=== PATIENT | male | born 1945 | race Caucasian/White ===

== ENCOUNTER → 2025-09-10 08:59 | Outpatient (REF) | payer MEDICARE, OTHER, SELFPAY | LOC: RAD 08:59 | PROVIDERS: ATTENDING PHYSICIAN Thoracic Surgery (Cardiothoracic Vascular Surgery); FAMILY PHYSICIAN Family Medicine | DX: I25.10 Atherosclerotic heart disease of native coronary artery without angina pectoris (principal); I25.5 Ischemic cardiomyopathy | CPT/HCPCS: 71275; Q9967 ==

== ENCOUNTER 2025-09-15 13:20 | Inpatient (IN) | payer MEDICARE, OTHER, SELFPAY ==
[2025-09-03 12:57] LABS: INR 1.15; PT 15.0 Sec (11.4-14.6)
[2025-09-03 13:00] LABS: Hematocrit 48.0 % (39.0-52.0); Hemoglobin 15.7 g/dL (13.0-18.0); Mean Corp Hgb Conc. 32.7 g/dL (33.0-37.0); Mean Corpuscular Volume 92.5 fL (80.0-94.0); Platelet Count 132 10^3/uL (130-400); Red Cell Dist. Width 13.8 % (11.5-14.5)
[2025-09-03 13:15] LABS: Urine Character Clear (Clear)
[2025-09-03 13:26] LABS: ALT (SGPT) 23 U/L (0-50); AST (SGOT) 27 U/L (17-59); Albumin 3.9 g/dl (3.5-5.0); Alkaline Phosphatase 88 U/L (38-126); Blood Urea Nitrogen 22 mg/dl (9-20); Calcium 9.4 mg/dl (8.4-10.2); Carbon Dioxide 30 mmol/L (22-30); Chloride 106 mmol/L (98-107); Glucose 88 mg/dl (70-99); Potassium 4.2 mmol/L (3.5-5.1); Sodium 139 mmol/L (135-145); Total Protein 6.2 g/dl (6.3-8.2); eGFR > 60.00
[2025-09-03 13:33] VITALS: BMI 27.9
--- NOTE | 2025-09-03 14:03 | CM ---
Chart reviewed. Met with the patient and his in PAT. Patient scheduled to come in on 09/15 for possible Impella placement and surgery on 09/17. Reviewed preoperative instructions and restrictions, along with showering guidelines. Gave
patient 2 soaps, in case he doesn't come in early. Patient is agreeable to a home visit by CT Transitional RN. Plan is for the patient to return home with CT Transitional RN. Patient is independent of ADLS, lives with his in a 1 STH,, 0 CHARLIE,
0 DME. Plan is for the patient to return home with CT Transitional RN. CM to follow
[2025-09-03 14:11] LABS: Nucleated Red Blood Cells % 0 % (-)
[2025-09-03 14:51] LABS: Urine Red Blood Cell 0-2 /HPF (0-2); Urine White Cell 0-2 /HPF (0-5)
[2025-09-03 15:01] LABS: Glycohemoglobin (HgbA1c) 5.4 % (4.0-5.6)
[2025-09-15] VITALS (7 sets, daily range): BP systolic 142–176; BP diastolic 89–107; PULSE 59; BMI 27.5
--- NOTE | 2025-09-15 13:55 | W.PN.UPDATE ---
Update Note
Progress Note Update
The patient is being preadmitted for medical optimization prior to high risk CABG on Tuesday with Dr. Cartagena. LVEF 15%. Plan for IV dobutamine and diuresis over the next 24-36 hrs. Hold losartan, jardiance in anticipation of surgery. Hold coreg while
on dobutamine.
There have been no other changes to the documented history or physical. I discussed the perioperative expectations with the patient and his and answered their questions to their satisfaction. Planning CABG with possible direct aortic impella
5.[address] Cartagena.
[2025-09-15 14:19] LABS: Hematocrit 47.3 % (39.0-52.0); Hemoglobin 15.7 g/dL (13.0-18.0); Mean Corp Hgb Conc. 33.2 g/dL (33.0-37.0); Mean Corpuscular Volume 91.7 fL (80.0-94.0); Platelet Count 123 10^3/uL (130-400); Red Cell Dist. Width 13.7 % (11.5-14.5)
[2025-09-15 14:30] LABS: ALT (SGPT) 26 U/L (0-50); AST (SGOT) 32 U/L (17-59); Albumin 3.9 g/dl (3.5-5.0); Alkaline Phosphatase 97 U/L (38-126); Blood Urea Nitrogen 21 mg/dl (9-20); Calcium 9.4 mg/dl (8.4-10.2); Carbon Dioxide 29 mmol/L (22-30); Chloride 106 mmol/L (98-107); Estimated Creatinine Clearance 55 ml/min; Glucose 102 mg/dl (70-99); Potassium 4.0 mmol/L (3.5-5.1); Sodium 137 mmol/L (135-145); Total Protein 6.5 g/dl (6.3-8.2); eGFR > 60.00
[2025-09-15] MEDS: KCL 20 MEQ PO ×2 (14:38→22:27)
[2025-09-15] MEDS: PEPCID 20 MG PO (14:38)
[2025-09-15] MEDS: BUMEX 1 MG IV ×2 (14:38→22:27)
[2025-09-15] MEDS: DOBUTREX 250 IV (14:38)
[2025-09-15] MEDS: TYLENOL 650 MG PO ×2 (15:25→20:00)
--- NOTE | 2025-09-15 15:32 | PTCARENOTE ---
Patient admitted to IVU. He is AO x3, walking independently in the room. Placed on telemetry, IV placed, labs collected. Denies pain. NSR with frequent PVC's. Lungs CTA, denies shortness of breath at rest. Dobutamine gtt started. Plan of care
reviewed. Patient in chair, call streeter in reach
--- NOTE | 2025-09-15 17:29 | PTCARENOTE ---
Patient having feeling of urgency, fullness and frequency. Multiple trips to the bathroom only voiding small amounts of yellow pale urine since receiving Bumex IV. Bladder scan 350, notified Gabriel Jiménez and 16 F Kee placed and emptied for 500 cc of
clear light urine. Symptoms resolved. Patient much more comfortable
[2025-09-15 20:52] LABS: Magnesium 2.3 mg/dl (1.6-2.3)
--- NOTE | 2025-09-15 21:34 | PTCARENOTE ---
Assumed care of patient at change of shift. Pt AAOx3, denies any chest discomfort or SOB at this time. Tele remains SR w/ PACs/PVCs, he denies any palpitations. Adrian Quiroga CTNP aware, orders obtained for lab draw. Labs collected and Mag level
came back at 2.3. Patient reports urinary relief after day shift RN had inserted Kee catheter. Kee draining fruit punch color urine, no clots noted at this time. Alexia MAIL HANDLER ASSISTANT made aware, no new orders at this time. IV Dobutamine gtt maintained.
Reviewed POC w/ patient. Call streeter within reach.
[2025-09-15] MEDS: LIPITOR 40 MG PO (22:27)
[2025-09-15] MEDS: CARDURA 8 MG PO (22:27)
[2025-09-15] MEDS: PROSCAR 5 MG PO (22:27)
[2025-09-15] MEDS: SEROQUEL 25 MG PO (23:10)
[2025-09-16] VITALS (14 sets, daily range): BP systolic 98–159; BP diastolic 67–115; PULSE 88; BMI 26.7
[2025-09-16 03:58] LABS: Hematocrit 51.2 % (39.0-52.0); Hemoglobin 16.8 g/dL (13.0-18.0); Mean Corp Hgb Conc. 32.8 g/dL (33.0-37.0); Mean Corpuscular Volume 93.6 fL (80.0-94.0); Nucleated Red Blood Cells % 0 % (-); Platelet Count 127 10^3/uL (130-400); Red Cell Dist. Width 13.7 % (11.5-14.5)
[2025-09-16 04:02] LABS: INR 1.15; PT 15.1 Sec (11.4-14.6)
[2025-09-16 04:12] LABS: ALT (SGPT) 27 U/L (0-50); AST (SGOT) 32 U/L (17-59); Albumin 4.1 g/dl (3.5-5.0); Alkaline Phosphatase 91 U/L (38-126); Blood Urea Nitrogen 20 mg/dl (9-20); Calcium 9.5 mg/dl (8.4-10.2); Carbon Dioxide 27 mmol/L (22-30); Chloride 105 mmol/L (98-107); Estimated Creatinine Clearance 50 ml/min; Glucose 118 mg/dl (70-99); LDH 186 U/L (120-246); Magnesium 2.2 mg/dl (1.6-2.3); Potassium 3.9 mmol/L (3.5-5.1); Sodium 139 mmol/L (135-145); Total Protein 6.7 g/dl (6.3-8.2); eGFR > 60.00
--- NOTE | 2025-09-16 04:55 | W.PN.CT ---
Today's Communication / Plan
-
-continued on dobutamine at 3 mcg with Bumex 1 mg q8 hr. Trending lactate.
-UOP 2600 cc since admission
-pending echo today
-holding outpatient BB
-Continue atorvastatin
-Kee placed for urinary retention. Urine initially reported to be punch colored after difficult insertion, did not clear overnight. Send UA today
-Continue on Cardua and Proscar
-mild thrombocytopenia noted, follow CBC
Assessment / Plan
-
80 year old male with a history of MVCAD and ICM admitted for planned CABG x4 (VASQUEZ-LAD, RSVG-D2, RSVG-OM, RSVG-RPDA), possibly with Impella 5.5 support, and LAAE on 09/[address] Cartagena. Admitted pre-operatively for dobutamine assisted diuresis and
optimization prior to surgery
MVCAD s/p LAD stent 2002
ICM
SYDNI
HFrEF
Cataracts
HTN
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
Enlarged prostate
Thrombocytopenia
Urinary retention
hematuria
Subjective
-
Date of Service: September 16, 2025
Objective Data
-
Lab Results
09/16/25 03:35
09/16/25 03:35
PT 15.1 Sec (11.4-14.6) H 09/16/25 03:35
INR 1.15 09/16/25 03:35
Vital Signs
Vital Signs
Temp Pulse Resp BP Pulse Ox
97.5 F 77 18 108/76 95
09/16/25 03:19 09/16/25 04:00 09/16/25 03:19 09/16/25 03:43 09/16/25 03:19
CT Intake/Output/Weight
11/02/25 11/02/25 11/03/25
05:59 18:59 06:59
Intake Total 480 / 480
Output Total 1050 / 2650 1600 / 2650
Balance -570 / -2170 -1600 / -2170
SaO2: 95
Physical Exam
-
General: Awake and Oriented
Cardiovascular: Regular rate & rhythm, No Murmurs and No Rub
Respiratory: Clear and Equal
Extremities: Edema +1
Data Reviewed
-
Lab Results: Results Reviewed
Medications: Active Meds Reviewed
ECG: Report Reviewed and Image Reviewed
--- NOTE | 2025-09-16 05:08 | PTCARENOTE ---
Patient required standby assist when ambulating to the bathroom this am. Patient was not able to move his bowels but did report passing gas. Patient stood up and felt like he was going to 'faint'. Escorted patient back to bed, obtained BP which
showed 98/79. He had relief once laying in bed, rechecked blood pressure w/ a result of 108/76. C/o brief nausea, which resolved. Denies any chest discomfort. Alexia CTNP aware. Mornings labs collected and sent. Kee drainage remains fruit punch
color w/ no clots. POC ongoing, call streeter within reach.
[2025-09-16 05:40] LABS: Urine Character Bloody (Clear)
[2025-09-16 05:51] LABS: Urine Red Blood Cell >100 /HPF (0-2); Urine Squamous Cell 0-2 /LPF (Few); Urine White Cell 0-2 /HPF (0-5)
[2025-09-16] MEDS: PEPCID 20 MG PO (07:41)
[2025-09-16] MEDS: KCL 40 MEQ PO (07:41)
[2025-09-16] MEDS: VITAMIN D3 (cholecalciferol) 50 MCG PO (07:41)
[2025-09-16] MEDS: THERAGRAN PO (07:44)
--- NOTE | 2025-09-16 07:52 | PTCARENOTE ---
Assumed care at 0700. Patient AO x3. NSR with PVC's HR 80's. Crackles left base, denies shortness of breath. Indwelling Kee, dark red urine, some dark red clots in the bag. VSS, call streeter in reach
--- NOTE | 2025-09-16 09:35 | W.PN.UPDATE ---
Update Note
Progress Note Update
Patient CBC with mild thrombocytopenia (plt ~120K) and leukocytosis (~19-20).
Patient reported he follows with Dr. Samantha Campa as an outpatient and denied any diagnosis of CLL or treatment secondary to laboratory abnormalities. Spoke to Dr. Campa to identify barriers to CVOR tomorrow in which she reported this to be
chronic.
Will continue to plan for CVOR tomorrow, 09/17/[address] Chun Cartagena.
--- NOTE | 2025-09-16 09:38 | CM ---
Reviewed chart. Met with Mr. Hackett to review discharge plans. He states prior to admission he resides with his spouse in a [place] community. He states he has been there for four years. He state his home is a one story home with a loft without
any steps to enter. He states he has a first floor set-up. He states prior to admission he was independent with ambulation and adls. He states he has a single point cane at [employer] to use if needed. He states he has a prescription plan and uses [facility]. He states his spouse will be home to assist in his care if needed. Medical work-up in progress. The discharge plan is to return home with his spouse and a home visit by the Transitional Care Nurse when medically stable.
--- NOTE | 2025-09-16 09:52 | W.CVOR.SURPR ---
CVOR Surgeon Immed Pre Op
-
I have examined this patient prior to performance of the scheduled procedure.
The patient's condition is unchanged from the time of the dictated/written History and
Physical and the patient is able to undergo the scheduled procedure.
High risk CABG + MCS + LAAE
D/w Dr. Campa, elevated WBC and low Plt count is chronic
--- NOTE | 2025-09-16 12:06 | VATNOTE ---
Called to assess dobutamine infiltrate on the left arm. No c/o pain. Reddened measuring at 13 x 4 cm. Warm compress applied. Left arm elevated on pillow. Will continue to monitor closely.
--- NOTE | 2025-09-16 13:06 | PTCARENOTE ---
Warm compress to infiltrate on left forearm. Denies pain
--- NOTE | 2025-09-16 16:45 | PTCARENOTE ---
Addendum entered by Gopi Corbin RN 09/16/25 17:24:
Dobutamine gtt stopped. Echo completed. Kee draining maroon urine, intermittent bladder spasms, emptied Kee 400 cc. Left arm infiltrate improved after compresses. EKG complete. Light dimmed call streeter in reach
Original Note:
Dobutamine gtt stopped. Echo completed. Kee draining yellow urine with dark sediment, intermittent bladder spasms. Left arm infiltrate improved after compresses. Light dimmed call streeter in reach
--- NOTE | 2025-09-16 19:43 | PTCARENOTE ---
Kee catheter leaking, irrigated catheter, light pink urine in tubing. Patient transferred to CV. Report given. All belongings sent with patient
--- NOTE | 2025-09-16 20:30 | PTCARENOTE ---
Patient arrived from IVU to room 2263 via wheelchair without difficulty. Patient A+A+Ox3. No neurological deficits noted. No c/o headache, dizziness or lightheadedness. No c/o pain or discomfort. Room air. SpO2 94%. Fines crackles bilateral
bases. Mild WELCH. Sinus Rhythm with PAC's and occasional to rare PVC. Patient with no c/o chest pain, pressure or discomfort. Abdomen soft, round, nontender. Normoactive bowel sounds. No BM. No c/o nausea. No vomiting. No edema noted.
Positive, palpable pulses. Kee catheter - Scarlett, blood tinged urine. No c/o bladder pain, discomfort or spasms. Patient with no c/o back or flank pain. Afebrile. Assessment as documented.
--- NOTE | 2025-09-16 20:35 | PTCARENOTE ---
Patient's left forearm continues to be reddened and swollen. Patient with no c/o pain or discomfort to left forearm. Positive circulation, sensation and mobility to left upper extremity. Assessment as documented.
--- NOTE | 2025-09-16 21:30 | PTCARENOTE ---
Patient clipped and prepped per protocol. 4% Chlorhexidine bath. Patient now resting in bed. Patient's at bedside. No c/o pain or discomfort. Assessment as documented.
[2025-09-16] MEDS: CARDURA 8 MG PO (22:53)
[2025-09-16] MEDS: LIPITOR 40 MG PO (22:53)
[2025-09-16] MEDS: SEROQUEL 25 MG PO (22:54)
[2025-09-16] MEDS: PROSCAR 5 MG PO (22:54)
[2025-09-17] VITALS (17 sets, daily range): BP systolic 74–127; BP diastolic 57–96; BMI 26.8
--- NOTE | 2025-09-17 00:30 | PTCARENOTE ---
NPO after midnight. Patient sleeping without difficulty. Assessment/Interventions as documented.
[2025-09-17 04:54] LABS: Hematocrit 48.3 % (39.0-52.0); Hemoglobin 15.9 g/dL (13.0-18.0); Platelet Count 117 10^3/uL (130-400)
[2025-09-17] MEDS: MAGNESIUM OXIDE 400 MG PO (05:42)
[2025-09-17] MEDS: LOPRESSOR 25 MG PO (05:42)
[2025-09-17] MEDS: PROTONIX 40 MG PO (05:42)
[2025-09-17] MEDS: BACTROBAN 2% OINTMENT 1 APPLIC NASAL ×2 (05:43→20:17)
--- NOTE | 2025-09-17 05:49 | PTCARENOTE ---
Patient A+A+Ox3. No neurological deficits noted. No c/o pain or discomfort. AM labs collected and sent. Patient given second 4% Chlorhexidine bath. CHG wipes. Pre-Op medications administered. Impella purge solution to CVOR with patient.
Patient's at bedside. Dr. Cartagena to speak with patient. Blind Hanger to CVOR.
[2025-09-17 07:37] LABS: ACT+ - POC 129 Seconds (82-134)
[2025-09-17 09:11] LABS: ACT+ - POC 720 Seconds (82-134)
[2025-09-17 09:26] LABS: ACT+ - POC 574 Seconds (82-134)
[2025-09-17 09:41] LABS: B.E. - POC 4.4 mmol/L; Glucose - POC 129 mg/dl (70-99); HCO3 - POC 30 mmol/L (21-28); Hematocrit - POC 36 % PCV (42-52); Hemodilution- POC Yes; Hemoglobin Calculated - POC 12.1; Ionized Calcium - POC 1.13 mmol/L (1.15-1.33); Lactate - POC 0.96 mmol/L (0.36-0.75); O2 Saturation %Calculated-POC 99.9 % (94-98); PCO2 - POC 46 mmHg (35-48); PO2 - POC 325 mmHg (83-108); Potassium - POC 4.2 mmol/L (3.5-5.1); Sodium - POC 138 mmol/L (136-145); Specimen Type - POC Arterial; pH - POC 7.42 (7.35-7.45)
[2025-09-17 09:50] LABS: ACT+ - POC 511 Seconds (82-134)
[2025-09-17 09:58] LABS: B.E. - POC -0.8 mmol/L; Glucose - POC 102 mg/dl (70-99); HCO3 - POC 23 mmol/L (21-28); Hematocrit - POC 41 % PCV (42-52); Hemodilution- POC No; Hemoglobin Calculated - POC 13.9; Ionized Calcium - POC 1.20 mmol/L (1.15-1.33); Lactate - POC < 0.30 mmol/L (0.36-0.75); O2 Saturation %Calculated-POC 100.0 % (94-98); PCO2 - POC 33 mmHg (35-48); PO2 - POC 443 mmHg (83-108); POC Comment PRE; Potassium - POC 3.3 mmol/L (3.5-5.1); Sodium - POC 141 mmol/L (136-145); Specimen Type - POC Arterial; pH - POC 7.44 (7.35-7.45)
[2025-09-17 10:08] LABS: B.E. - POC 2.8 mmol/L; Glucose - POC 125 mg/dl (70-99); HCO3 - POC 27 mmol/L (21-28); Hematocrit - POC 35 % PCV (42-52); Hemodilution- POC Yes; Hemoglobin Calculated - POC 11.9; Ionized Calcium - POC 1.12 mmol/L (1.15-1.33); Lactate - POC 1.19 mmol/L (0.36-0.75); O2 Saturation %Calculated-POC 99.8 % (94-98); PCO2 - POC 39 mmHg (35-48); PO2 - POC 236 mmHg (83-108); POC Comment CPB; Potassium - POC 4.6 mmol/L (3.5-5.1); Sodium - POC 138 mmol/L (136-145); Specimen Type - POC Arterial; pH - POC 7.45 (7.35-7.45)
[2025-09-17 10:18] LABS: ACT+ - POC 582 Seconds (82-134)
[2025-09-17 10:37] LABS: B.E. - POC 2.2 mmol/L; Glucose - POC 126 mg/dl (70-99); HCO3 - POC 26 mmol/L (21-28); Hematocrit - POC 36 % PCV (42-52); Hemodilution- POC Yes; Hemoglobin Calculated - POC 12.3; Ionized Calcium - POC 1.15 mmol/L (1.15-1.33); Lactate - POC 1.22 mmol/L (0.36-0.75); O2 Saturation %Calculated-POC 99.9 % (94-98); PCO2 - POC 38 mmHg (35-48); PO2 - POC 248 mmHg (83-108); POC Comment CPB; Potassium - POC 4.4 mmol/L (3.5-5.1); Sodium - POC 136 mmol/L (136-145); Specimen Type - POC Arterial; pH - POC 7.45 (7.35-7.45)
--- NOTE | 2025-09-17 10:40 | PN.CDI ---
CDI
- -
CDI:
Physician Documentation Request
Admit Date: 09/15/25 13:[address] surgery,
Clinical Indicators:
09/16 PN, HFrEF documented.
09/16 RN note, 'Fines crackles bilateral bases. Mild WELCH.'
09/15 09/16: Dobutamine gtt at 3mcg/kg/min + Bumex 1 mg IV q 8h
Weight trend:
09/03/25
13:33 09/16/25
03:28
Actual Weight 183 lb 6.793 oz 175 lb 11.335
oz
BNP
09/15/25
14:02
[id number] Pept 1570
Please provide further specificity regarding the most likely acuity of CHF you are evaluating, treating or monitoring.
Acute on chronic HFrEF, POA
Chronic HFrEF
Other, please specify
Use of terms such as suspected, likely, concern for, or probable (associated with a specific diagnosis that is being evaluated, monitored, or treated as if it exists) are acceptable and can be coded in the inpatient setting, when documented at the
time of discharge.
Thank you,
ANGELIQUE Gabriel RN
CDI Specialist
available via tiger text
Please use your independent medical judgment in providing your response.
[2025-09-17 10:44] LABS: ACT+ - POC 504 Seconds (82-134)
[2025-09-17 11:20] LABS: B.E. - POC 2.9 mmol/L; Glucose - POC 149 mg/dl (70-99); HCO3 - POC 27 mmol/L (21-28); Hematocrit - POC 37 % PCV (42-52); Hemodilution- POC Yes; Hemoglobin Calculated - POC 12.4; Ionized Calcium - POC 1.15 mmol/L (1.15-1.33); Lactate - POC 1.46 mmol/L (0.36-0.75); O2 Saturation %Calculated-POC 99.7 % (94-98); PCO2 - POC 38 mmHg (35-48); PO2 - POC 196 mmHg (83-108); POC Comment WARM; Potassium - POC 4.4 mmol/L (3.5-5.1); Sodium - POC 140 mmol/L (136-145); Specimen Type - POC Arterial; pH - POC 7.46 (7.35-7.45)
[2025-09-17 11:23] LABS: ACT+ - POC 131 Seconds (82-134)
--- NOTE | 2025-09-17 11:33 | W.PN.UPDATE ---
Update Note
Progress Note Update
CDI query:
Acute on chronic HFrEF, POA
--- NOTE | 2025-09-17 11:43 | CM ---
pt in OR today, cm to follow
[2025-09-17 12:01] LABS: B.E. - POC -0.6 mmol/L; Glucose - POC 150 mg/dl (70-99); HCO3 - POC 24 mmol/L (21-28); Hematocrit - POC 32 % PCV (42-52); Hemodilution- POC Yes; Hemoglobin Calculated - POC 10.8; Ionized Calcium - POC 1.32 mmol/L (1.15-1.33); Lactate - POC 1.45 mmol/L (0.36-0.75); O2 Saturation %Calculated-POC 99.9 % (94-98); PCO2 - POC 39 mmHg (35-48); PO2 - POC 262 mmHg (83-108); POC Comment POST; Potassium - POC 3.7 mmol/L (3.5-5.1); Sodium - POC 138 mmol/L (136-145); Specimen Type - POC Arterial; pH - POC 7.40 (7.35-7.45)
--- NOTE | 2025-09-17 12:11 | W.PN.CT.SURG ---
CT Surgery Operative Note
-
CARDIAC SURGERY OPERATIVE REPORT
Preoperative Diagnosis: Multivessel Coronary Artery Disease with Severe Ischemic Cardiomyopathy
Postoperative Diagnosis: Same
Procedure(s) Performed:
1. Standard Sternotomy with Aortic and Right Atrial Cannulation
2. Internal Mammary Artery Harvesting, Left
3. Coronary artery bypass grafting x 4 (In situ VASQUEZ to LAD, Composite VASQUEZ to RSVG to High Diag seq OM, Ao to RSVG to RPDA)
4. Endoscopic vein harvesting of right and left lower extremities
5. Transesophageal echocardiography
6. Placement of Temporary Ventricular and Atrial pacing Wires
7. Placement of a direct aortic 5.5 Impella LVAD via 10 mm graft directly anastomosed to the ascending thoracic aorta
Date of Surgery: 09/17/2025
Comorbidities:
1. Severe ischemic cardiomyopathy with LVEF of 15% and global hypokinesis
2. Multivessel coronary disease with previous MIs and multiple stents
3. Hypertension
4. Hyperlipidemia
5. CLL with chronically elevated white count and depressed platelet count
6. Enlarged prostate
Attending Surgeon: Chun Cartagena MD, MS
Assistants: India Rendon PA-C (present and necessary to first dyer, endoscopic vein harvest, retraction, suction, exposure, suture management, and wound closure under my direction), Chun Thorne PA-C (assisted with Vein Shirley Mills)
Anesthesiology: Willie Jefferson MD and Lashell Dumont CRNA
Scrub and Circulating RNs: Ivory Linda, VARGHESE, Madelin Mueller, VARGHESE and Lane Rogers RN
Lieutenant Shift Supervisor: Mariia Stapleton CCP
Anesthesia: GETA
EBL: per perfusion records
Products: None
CPB Time: 103 minutes
Aortic Cross Clamp Time: 84 minutes
Implants: 5.5 Direct Aortic Impella, SN [id number], Biological Glue, SN [id number]
Indication(s) for Procedures: This is an 80-year-old man with severe ischemic cardiopathy multivessel coronary disease status post multiple stents with in-stent restenosis. His LAD was IFR positive and he was admitted recently for heart failure and
possibly an NSTEMI. He was referred to me for expedited coronary revascularization. Given his poor left ventricular ejection fraction, he was permitted in order for medical optimization. His baseline LVEF was approximately 15 to 20%. He had a
mild degree of mitral valve insufficiency which is functional. RV was normal in size and function. His preoperative transthoracic echocardiogram while inpatient had multiple ectopic beats. The PVC did appear to have a EF of 40% however that was
post PVC. His baseline EF was later discovered to be truly 15%. He was offered high risk revascularization and placement of temporary MCS given his poor LVEF.
Conduit(s) Quality:
VASQUEZ -excellent conduit, skeletonized
RSVG -poor, he had only 2 usable segments which were underneath a length of Metzenbaum scissors each
Target(s) Quality:
RCA/PDA -good quality target, the vein graft was taken off the aorta to this distal target here, the mean flow was approximately 10 cc a minute with a pulsatile index of 3.6
OM -excellent quality target, large, a vein graft was anastomosed here and use as part of a sequential to a high diagonal. The flow probe on the Y graft off of the VASQUEZ to the 2 vein sequences was approximately 10 cc a minute with a pulsatility
index of 5.3
LAD -excellent quality target, the anastomosis was performed distal to the stent margin, the flow here was 36 cc a minute of the main VASQUEZ graft heading into the wire and then 12 cc a minute with a pulse index of 3.6 after the Y. There is excellent
visual flow in the LAD territory post revascularization.
Findings: His left ventricular ejection fraction preoperatively was 15% with global hypokinesis. He had a mild degree of mitral valve insufficiency. He was very hypertensive preoperatively. Following surgery his EF remained approximately 15 to
20% although his LV looked better decompressed with the 5.[address] flowing at P4. He had no new regional wall motion abnormalities and RV remained normal in both size and function. The VASQUEZ was harvested in a skeletonized fashion.
Following bypass grafting, test dose cardioplegia was given down each distal and confirmed patency and hemostasis. Due to poor availability of conduit, I had to perform a composite graft off the VASQUEZ graft in order to reach the high diagonal and
OM. At the conclusion of the case, he did not require any blood products, he was on low-dose dobutamine and off and on Levophed. He was AV paced in a ddI mode. The 5.5 direct aortic Impella was taken off from a 10 mm graft sewn to the distal
ascending aorta and tunneled to the left supraclavicular region between strap muscles. Of note his ascending thoracic aorta was a little bit ectatic and somewhat friable. Multiple repair sutures were placed at the base of the 10 mm graft as well
as antegrade site with pledgeted sutures.
Description of Procedure: The patient was taken to the operating room. Their identity and procedure to be performed were verified and they were positioned supine on the operating table. Induction via general anesthesia with endotracheal intubation
was performed and central venous access and arterial monitoring were inserted. A preoperative transesophageal echocardiogram was performed to assess cardiac function and valvular function. The patient was then prepped and draped from chin to feet in
a sterile fashion. A preoperative time-out was performed with all members of the team present. A midline chest incision was performed along with median sternotomy. Simultaneous endoscopic access of the right and left lower extremity for saphenous
vein harvest was obtained along with administration of an initial 5,000 units of IV heparin. A RulTract sternal retractor was positioned to exposure the left internal mammary bed. The mammary was harvested and found to have good flow. A bulldog
clamp was applied to the distal end of the mammary after dividing it. It was wrapped in a papaverine soaked RayTec and replaced back into the left hemithorax. The RulTract was exchanged for a median sternal retractor. The innominate vein was
isolated. We created a pericardial well. Pursestring sutures were then placed on the mid arch and then a partial aortic clamp was applied using 11 blade a slit was made on the ascending thoracic aorta and the 10 mm graft was then tunneled and
beveled accordingly. 4-0 Prolene was used to sew this graft into place and BioGlue was used to reinforce the base of the graft. Full heparinization was given (a total of 47 units). The aortic cannulation site was chosen where it was soft,
pliable, and free of calcium. Cannulation was performed with an arterial cannula in the mid arch of the aorta and a triple-stage venous cannula through the right atrial appendage. The arterial cannula line had an appropriate bounce and correlating
pressures with test dosing. Next, a root vent/antegrade cannula was inserted into the ascending aorta. The ACT was confirmed to be over 400 and retrograde autologous priming was performed before commencing cardiopulmonary bypass. The pulmonary
artery was away from the aorta to facilitate a clamp site. The aortic cross-clamp was placed after decreasing the flow on the bypass and mean arterial pressure. A total of 1.2L initial dose of antegrade Del-Nido cardioplegia solution was
given and planned for re-dosing every 75 minutes as necessary. There was rapid electro-mechanical arrest of the heart at 400 cc of cardioplegia. The left ventricle was observed for distention on echocardiogram and manual palpation. Cold slush was
placed into a sponge and topically on the RV while we systemically cooled to 34 degrees centigrade.
I positioned the heart to expose the large marginal coming off the circumflex. A [place] blade was used to expose the coronary and perform the arteriotomy. Coronary Wade scissors were used to enlarge the incision. The saphenous vein was trimmed and
beveled to an appropriate size. The distal anastomosis was performed using 7-0 prolene in an end-to-side fashion. Antegrade cardioplegia was administered into the graft. Appropriate hemostasis and flow were confirmed by hand testing. Given the poor
length and usability of the rest of the graft, I transected it with a vein graft became small and atretic. The high diagonal was then identified and prepared in a similar fashion. A yppi-ce-cgco anastomosis was then made to the underbelly of the
vein graft in a perpendicular fashion. This done with 7-0 Prolene. A bulldog was then applied distally to the graft and test dosing was given down the graft to the diagonal. It yielded appropriate hemostasis and flow. A suitable target on the
mid/distal left anterior descending was identified. We dissected and prepared the distal target in a similar fashion. We retrieved the VASQUEZ from the chest and created a pericardial opening while being cognizant of the phrenic nerve to facilitate the
course of the mammary. The distal end of the mammary was prepped and beveled to size. We verified orientation and length of the ETHAN and found brisk flow. An end-to-side anastomosis was created with a 7-0 prolene. We temporarily released the bulldog
clamp on the mammary to inspect flow. Perfusion to the LAD territory was visualized and hemostasis was confirmed. The bull clamp was replaced on the mammary. The underbelly of the VASQUEZ was then incised and the vein graft was then beveled. A vein
to VASQUEZ anastomosis was performed with 7-0 Prolene in a running fashion. The vein graft was under no tension leading to the diagonal and OM. A suitable site on the RPDA was chosen. We dissected and prepared the distal target in a similar fashion.
An end-to-side anastomosis was created with a 7-0 prolene. Antegrade cardioplegia was administered into the graft. Appropriate hemostasis and flow were confirmed. The graft was measured for length to the aorta and cut.The heart was filled and the
root was distended with antegrade cardioplegia to make final assessment of graft length and orientation. We created 1 aortotomy using a #11 blade then a 4.0mm aortic punch. The proximal anastomoses were created in an end-to-side fashion using 6-0
prolene. At the the same time, we re-warmed to 36.5 degrees centigrade. A small 1.5 to 2 cm incision was made on the ascending aorta toward the STJ. The Impella device was inserted through the graft and then placed across the aortic valve under
direct vision. The aorta was then closed with 4-0 Prolene in 2 layers. The bulldog clamp was removed from the mammary. Temporary bipolar ventricular pacing wires were placed on the base of the right ventricle along with atrial pacing wires at the
SVC right atrial junction and right atrial appendage. The patient was placed in a Trendelenburg position and flows on bypass were lowered. The aortic cross clamp was removed and flows were slowly brought back up. All bypass grafts were inspected and
were free from kinking or twisting. The distal and proximal anastomoses appeared hemostatic. Once transesophageal echocardiography appeared satisfactory for de-airing, the flows were temporarily lowered for root vent removal. After verifying
acceptable parameters, we initiated weaning from cardiopulmonary bypass. Once we were off cardiopulmonary bypass, the venous cannula was clamped and removed. A test dose of protamine was administered and the patient was monitored for any adverse
reaction before resuming protamine. Once half of the protamine dose was delivered, pump suckers were turned off and the systolic blood pressure was lowered for aortic decannulation. The aortic cannula was removed and pursestrings were tied down. All
cannulation sites were oversewn with a 4-0 prolene. The mammary bed was inspected and hemostasis was confirmed. Once the mediastinum was hemostatic, 19Fr Alejandro drain was placed in the left pleural cavity and two 24Fr Alejandro drains were placed within
the pericardium. The sternum was approximated with 4 #7 single and 3 #8 double stainless steel wires. Fascia was approximated with #1 vicryl suture. The subcutaneous, dermis and epidermis were closed in layers in a running fashion. The skin wound
was cleansed and dressed.
All instrument, sponge, and needle counts were confirmed to be correct x 2 at the end of the operation. The patient was transferred to the cardiac intensive care unit in critical but stable condition.
I, Dr. Chun Cartagena, was present, scrubbed for, and performed all critical elements of this procedure.
Chun Cartagena MD, MS
Cardiothoracic Surgeon
[facility]
This operative dictation was created using the [employer] dictation system. Please excuse any grammatical, typographical, or 'sound alike' errors
--- NOTE | 2025-09-17 12:49 | CON.INTV ---
Consultation
Consultation Request
Date/Time Consultation Requested: 09/17/2025-1 PM
Date/Time Consultation Performed: 09/17/2025-1:15 PM
Requesting Provider: Dr. Cartagena
Performing Provider: Dr. Bailey
Reason for Consultation: Postoperative ventilator/critical care management
Medical History
-
Chief Complaint: CAD
History of Present Illness:
80-year-old former smoking male who quit smoking in the who has CAD, hypertension, CLL, enlarged prostate with severe ischemic cardiomyopathy with preoperative EF 15% noted to have multivessel CAD with previous MIs and multiple stents
underwent CABG x 4 as well as Impella device implantation by Dr. Cartagena 09/17/2025 and tobacco stemmer consulted for postoperative ventilator/critical care management 09/17/2025. Patient was seen postoperatively in the cardiovascular intensive care area.
Patient was sedated on the vent and review of systems was unobtainable. Operative records were reviewed. Pressor requirements, ventilator settings, chest tube output was reviewed.
Past Medical History
Past Medical History: None (CAD/MIs/stents. Hypertension.? CLL. BPH. Cataract. Cholecystectomy. Carpal tunnel. Hernia repair.)
Social History
Tobacco: Former Smoker (Quit in the )
Alcohol: Occasional
Drug: None
Personal:
Living: With Family
Occupational Exposures: No known asbestos exposure
Environmental Exposures: No known tuberculosis exposure
Family History
Family History: Reviewed & Not Pertinent (Father-aneurysm. Mother-hypertension. Sister breast cancer.)
Allergies / Home Medications
Allergies
Allergy/AdvReac Type Severity Reaction Status Date / Time
ticlopidine (From Ticlid) Allergy MYALGIA Verified 09/15/25 15:13
meperidine (From Demerol) AdvReac Nausea Verified 09/15/25 15:13
Home Medications
�Medication �Instructions �Recorded �Confirmed �Last Taken �Type
atorvastatin 40 mg tablet (Lipitor) 40 mg PO HS High Cholesterol 08/30/25 09/17/25 09/16/25 22:53 History
40 mg
carvedilol phosphate 20 mg 20 mg PO DAILY Heart 08/30/25 08/30/25 Unknown History
capsule,ext.[id number] multiphase Disease/Condition
cholecalciferol (vitamin D3) 50 50 mcg PO DAILY Supplement 08/30/25 09/15/25 09/09/25 History
mcg (2,000 unit) tablet (Vitamin
D3)
doxazosin 8 mg tablet 8 mg PO HS bph 08/30/25 09/17/25 09/16/25 22:53 History
8 mg
empagliflozin 10 mg tablet 10 mg PO DAILY Heart Failure 08/30/25 09/15/25 09/13/25 History
(Jardiance)
famotidine 40 mg tablet 40 mg PO BID Gastrointestinal Issue 08/30/25 09/15/25 09/15/25 08:00 History
finasteride 5 mg tablet 5 mg PO HS bph 08/30/25 09/17/25 09/16/25 22:54 History
5 mg
losartan 25 mg tablet 25 mg PO BID Heart 08/30/25 09/15/25 09/14/25 History
Disease/Condition
multivitamin 1 tab PO DAILY Supplement 08/30/25 09/15/25 09/09/25 History
torsemide 5 mg tablet 5 mg PO DAILY Heart 08/30/25 09/15/25 09/14/25 08:00 History
Disease/Condition
carvedilol 12.5 mg tablet 12.5 mg PO BID Heart 09/15/25 09/15/25 09/15/25 08:00 History
Disease/Condition
quetiapine 25 mg tablet (Seroquel) 25 mg PO HS 09/17/25 09/17/25 09/16/25 22:54 History
25 mg
Review of Systems
-
Unable to Obtain full review of systems at this time due to: Patient Intubation
Vitals / Labs / Diagnostic Testing
Vital Signs
Temp Pulse Resp BP Pulse Ox
98.0 F 72 12 121/78 92
09/17/25 04:30 09/17/25 05:42 09/17/25 05:10 09/17/25 05:42 09/17/25 04:32
Microbiology
09/16/25 05:27 Urine Urine Culture - Final
NO GROWTH
Diagnostic Testing:
Physical Exam
-
Exam:
Well-nourished and well-developed in no apparent distress
HEENT-atraumatic, normocephalic, oral tracheal intubation
Heart-regular rate and rhythm-no murmurs, rubs or gallops
Chest-clear to auscultation, no wheezes, crackles, median sternotomy bandage is not removed
Abdomen soft nondistended
Extremities-no cyanosis, clubbing, edema and good peripheral pulses
Integument-intact, no rashes, lesions or ecchymosis
Neurologically not alert, not oriented, not moving any of his extremities sedated on a ventilator
Assessment
-
80-year-old former smoking male who quit smoking in the 1980s who has CAD, hypertension, CLL, enlarged prostate with severe ischemic cardiomyopathy with preoperative EF 15% noted to have multivessel CAD with previous MIs and multiple stents
underwent CABG x 4 as well as Impella device implantation by Dr. Cartagena 09/17/2025 and tobacco stemmer consulted for postoperative ventilator/critical care management 09/17/2025.
CAD-multivessel with severe ischemic cardiomyopathy-EF 15% on 08/21/2025 and improved to 40% on 09/16/2025 on dobutamine
Status post CABG x 4-VASQUEZ-LAD, composite VASQUEZ to RSVG to high diagonal sequential OM, AO to RSVG to RPDA, Impella placement, ventricular/atrial pacers temporary-Dr. Cartagena-09/17/2025
Mild hyperglycemia-blood sugar 118
Pulmonary nodule
Conditions present prior to admission:
CAD/MIs/stents.
Hypertension
? CLL.
BPH.
Cataract. Cholecystectomy. Carpal tunnel. Hernia repair.
Plan
Ventilator settings reviewed
FiO2 will be weaned
Minute ventilation will be adjusted
Arterial blood gases will be monitored
Spontaneous breathing trial will be attempted with hopeful extubation after anesthesia/sedation wear off
Pulmonary artery catheter parameters will be followed
Pressors/antihypertensive/inotropes/diuretics will be provided as needed
Impella device postoperatively
Monitor chest tube output
Monitor hemoglobin
Monitor platelet count and coags
Transfuse blood product if needed
CT surgery following chest tubes
Monitor blood sugar
Insulin drip per protocol
Aspiration precautions
VAP prevention protocol
DVT prophylaxis
Early nutrition
Early mobilization
Outpatient pulmonary follow-up with repeat CT chest in 12 months with incidental 4 mm right lower lobe nodule found 09/10/2025
Critical care statement: A total of 50 minutes of critical care time was provided for this patient today. This includes management of ventilator, spontaneous breathing trial, arterial blood gases, pressors, of unstable vital signs, evaluation of the
patient at bedside, reviewing the patient's pertinent medical records including radiographs, microbiology, laboratory evaluations, and discussion with primary team and critical care nursing.
Diagnostic data:
CT angiography 09/10/2025-ascending thoracic aorta 3.6 cm, 4 mm lung nodule right lower lobe
Echocardiogram 09/16/2025-EF 40%, trace mitral regurgitation
Data Reviewed
-
EKG: Report reviewed by me
Radiology: Report reviewed by me
CT Scan: Report reviewed by me
Medical Tests (Nuc Med, Echo etc): Report reviewed by me
Labs: Labs reviewed by me
Old Records: Reviewed
Critical Care Time (in minutes): 50
[2025-09-17 13:13] LABS: Glucose - Point of Care 159 mg/dl (70-99)
[2025-09-17 13:25] LABS: B.E. -0.2 mmol/L; HCO3 24.8 mmol/L (21-28); O2 Saturation % 97.4 % (94-98); PCO2 41 mmHg (35-48); PO2 79 mmHg (83-108); Potassium 3.8 mMOL/L (3.5-5.1); Sodium 136 mMOL/L (136-145)
[2025-09-17] MEDS: DILAUDID 0.5 MG IV (13:29)
[2025-09-17] MEDS: ANCEF 10 IV ×2 (13:30)
[2025-09-17] MEDS: NSS 500 IV (13:30)
[2025-09-17 13:32] LABS: Hematocrit 41.3 % (39.0-52.0); Hemoglobin 13.4 g/dL (13.0-18.0); Platelet Count 94 10^3/uL (130-400)
--- NOTE | 2025-09-17 13:32 | PTCARENOTE ---
Received pt from [facility] team. Intubated and sedated on the vent. SIMV 14/500/5/5/ 40%. Pulse ox of 94%. Via #8 ETT at 22 cm RT lip. 100% AV paced via Epicardial wires. Set to DDI 80/15/10. Impella via Lt neck at 36 cm. RT IJ cordis with Echo
at 40 cm. Lt radial A line transducing. Lines leveled, recalibrated and flushed. Drips infusing on hand off as follows: Dobutamine, insulin, levophed, precedex. Chest tubes x 3 to - 20 cm suciton. No air leak or crepitus noted. Abdomen soft
and non tender. Bilateral legs with Noam wraps intact. Sternal Incision well approximated with surgical adhesive. BIlateral dp pulses palpable. updated.
[2025-09-17 13:35] LABS: INR 1.56; PT 18.9 Sec (11.4-14.6)
[2025-09-17 13:36] LABS: APTT 34.4 Sec (23.4-35.0); Fibrinogen 266 MG/DL (199-459)
[2025-09-17 13:37] LABS: D-Dimer 0.84 ug/mlFEU (0.00-0.50)
[2025-09-17 13:51] LABS: ALT (SGPT) 18 U/L (0-50); AST (SGOT) 38 U/L (17-59); Albumin 2.7 g/dl (3.5-5.0); Alkaline Phosphatase 55 U/L (38-126); Blood Urea Nitrogen 21 mg/dl (9-20); Estimated Creatinine Clearance 61 ml/min; Glucose 164 mg/dl (70-99); LDH 270 U/L (120-246); Magnesium 2.7 mg/dl (1.6-2.3); Total Protein 4.8 g/dl (6.3-8.2)
[2025-09-17] MEDS: NEURONTIN PO ×2 (13:56→16:19)
[2025-09-17] MEDS: KCL 50 IV ×2 (13:56→15:23)
[2025-09-17] MEDS: VITAMIN D3 (cholecalciferol) PO (13:56)
[2025-09-17] MEDS: THERAGRAN PO (13:57)
[2025-09-17 14:04] LABS: Glucose - Point of Care 212 mg/dl (70-99)
--- NOTE | 2025-09-17 14:30 | PTCARENOTE ---
CI dropped to 1.38, discussed with Ct PARTS COORDINATOR order obtained for IV nitro drip to start. Drip initiated.
--- NOTE | 2025-09-17 14:53 | VATNOTE ---
Vat rounds:left arm infiltrate bruised but no redness or swelling noted. will continue to monitor closely.
[2025-09-17 14:57] LABS: B.E. - POC -1.2 mmol/L; Blood Urea Nitrogen - POC 21 mg/dl (3-120); Chloride - POC 108 mmol/L (96-111); Creatinine - POC 0.99 mg/dl (0.3-1.0); Glucose - POC 212 mg/dl (70-99); HCO3 - POC 24 mmol/L (21-28); Hematocrit - POC 38 % PCV (42-52); Hemodilution- POC Yes; Hemoglobin Calculated - POC 12.9; Ionized Calcium - POC 1.21 mmol/L (1.15-1.33); Lactate - POC 2.18 mmol/L (0.36-0.75); O2 Saturation %Calculated-POC 89.6 % (94-98); PCO2 - POC 40 mmHg (35-48); PO2 - POC 59 mmHg (83-108); Potassium - POC 4.6 mmol/L (3.5-5.1); Sodium - POC 142 mmol/L (136-145); Specimen Type - POC Arterial; pH - POC 7.38 (7.35-7.45)
--- NOTE | 2025-09-17 14:58 | PTCARENOTE ---
Pt waking up [id number]. BP labile with IV nitro. SBP down to 60's,. IVF bolus administered. NItro turned off. Epicardial rate lowered to 45. Levo titrated as necessary. Impella increased to P5. Dobute BP normalized.
--- NOTE | 2025-09-17 15:02 | PTCARENOTE ---
Pt waking up [id number]. BP labile with IV nitro. SBP down to 60's,. IVF bolus administered. NItro turned off. Epicardial rate lowered to 45. Levo titrated as necessary. Impella increased to P5. Dobutamine inceased to [address] brim raiser ORDER.
BP normalized.
[2025-09-17 15:08] LABS: Glucose - Point of Care 160 mg/dl (70-99)
[2025-09-17] MEDS: TYLENOL PO ×2 (15:39→21:40)
[2025-09-17] MEDS: PEPCID PO (15:40)
[2025-09-17 15:59] LABS: Glucose - Point of Care 167 mg/dl (70-99)
[2025-09-17 16:05] LABS: B.E. -0.3 mmol/L; HCO3 24.1 mmol/L (21-28); O2 Saturation % 96.1 % (94-98); PCO2 38 mmHg (35-48); PO2 69 mmHg (83-108); Potassium 4.7 mMOL/L (3.5-5.1); Sodium 136 mMOL/L (136-145)
[2025-09-17] MEDS: PACERONE PO (16:19)
--- NOTE | 2025-09-17 16:38 | RESPNOTE ---
16:30 patient extubated to 5L NC without incident as per order. (-) stridor and b/l breath sounds present.
[2025-09-17] MEDS: CORDARONE 259 MG IV (17:00)
[2025-09-17] MEDS: OFIRMEV 100 IV (17:00)
[2025-09-17] MEDS: LOW STRENGTH ASPIRIN 81 MG PO (17:01)
--- NOTE | 2025-09-17 17:01 | CON.CAR ---
Consultation
Consultation Request
Date/Time Consultation Performed: 09/17/25
Requesting Provider: Dr. Cartagena
Performing Provider: Keiry Antonio PA-C for Dr. De La Garza
Reason for Consultation: CABG, ICM
Medical History
-
Chief Complaint: CABG
History of Present Illness:
Patient is an 80-year-old male with abnormal stress test status post left heart cath 08/21/2025 and found to have triple-vessel coronary disease including in-stent restenosis of prior LAD stents (2002, 2005, 2019). Based on this was referred for
bypass. His TTE 08/21/2025 showed moderate concentric LVH, concentric remodeling with contraction dyssynchronous and EF 15 to 20%, mild to moderate MR, mild AR, mildly dilated ascending aorta. He was brought in on 09/15 for dobutamine assisted
diuresis for optimization preprocedure and underwent CABG times 4 on 09/17/25 with placement of Impella. Cardiology asked to follow along postoperatively
PMH:
CAD
Status post LAD stents 2002, 2005, 2019
Triple-vessel coronary disease including in-stent restenosis of prior LAD stents by cath 08/21/25
Ischemic cardiomyopathy, EF 15 to 20%
Chronic heart failure with reduced EF
Mild to moderate MR
Sick sinus syndrome
Hypertension
Hyperlipidemia
SYDNI
Polycythemia vera
Chronic thrombocytopenia
Spinal stenosis
GERD
Depression/anxiety
Past Medical History
Past Medical History: Other (in HPI)
Social History
Tobacco: Former Smoker
Alcohol: Occasional
Personal:
Living: With Family
Employment: Retired
Family History
Family History: Cancer, Hypertension and Other (aneurysm)
Allergies / Home Medications
Allergy/AdvReac Type Severity Reaction Status Date / Time
ticlopidine (From Ticlid) Allergy MYALGIA Verified 09/15/25 15:13
meperidine (From Demerol) AdvReac Nausea Verified 09/15/25 15:13
�Medication �Instructions �Recorded �Confirmed �Type
atorvastatin 40 mg tablet (Lipitor) 40 mg PO HS High Cholesterol 08/30/25 09/17/25 History
carvedilol phosphate 20 mg 20 mg PO DAILY Heart 08/30/25 08/30/25 History
capsule,ext.[id number] multiphase Disease/Condition
cholecalciferol (vitamin D3) 50 50 mcg PO DAILY Supplement 08/30/25 09/15/25 History
mcg (2,000 unit) tablet (Vitamin
D3)
doxazosin 8 mg tablet 8 mg PO HS bph 08/30/25 09/17/25 History
empagliflozin 10 mg tablet 10 mg PO DAILY Heart Failure 08/30/25 09/15/25 History
(Jardiance)
famotidine 40 mg tablet 40 mg PO BID Gastrointestinal Issue 08/30/25 09/15/25 History
finasteride 5 mg tablet 5 mg PO HS bph 08/30/25 09/17/25 History
losartan 25 mg tablet 25 mg PO BID Heart 08/30/25 09/15/25 History
Disease/Condition
multivitamin 1 tab PO DAILY Supplement 08/30/25 09/15/25 History
torsemide 5 mg tablet 5 mg PO DAILY Heart 08/30/25 09/15/25 History
Disease/Condition
carvedilol 12.5 mg tablet 12.5 mg PO BID Heart 09/15/25 09/15/25 History
Disease/Condition
quetiapine 25 mg tablet (Seroquel) 25 mg PO HS 09/17/25 09/17/25 History
Review of Systems
-
History Source: Patient
All other systems: Negative unless noted
Physical Exam
Vital Signs
Temp Pulse Resp BP Pulse Ox
98.2 F 63 20 78/67 94
09/17/25 16:00 09/17/25 16:00 09/17/25 16:00 09/17/25 15:00 09/17/25 16:00
Lab Results
Scu-R-Yijocbtzjid Pept 1570 pg/ml 09/15/25 14:02
Physical Exam
General: No Apparent Distress and Other (sedated. c/o CP. on supp O2)
HEENT: Normocephalic and Moist Mucous Membranes
Respiratory: Clear and Non Labored Respirations
Cardiac: S1/S2 and Regular Rhythm
GI: Soft, Non Tender and Non Distended
Musculoskeletal: No Clubbing, No Cyanosis and No Edema
Skin: Warm, Dry and Other (Sternotomy incision clean dry and intact)
Neuro: Sedated (But awake. Able to express needs)
Impression / Plan
-
Primary esters and emulsifiers supervisor: Dr. Paez of [facility] [place]
Assessment:
CAD
Status post LAD stents 2002, 2005, 2019
Triple-vessel coronary disease including in-stent restenosis of prior LAD stents by cath 08/21/25
Status post CABG x 4 and site to VASQUEZ to LAD, composite VASQUEZ to RSVG to high diagonal sequential OM, AO to RSVG to RPDA, placement of direct aortic 5.5 Impella LVAD 09/17/2025
Ischemic cardiomyopathy, EF 15 to 20%
Chronic heart failure with reduced EF
Mild to moderate MR
Sick sinus syndrome
Hypertension
Hyperlipidemia
SYDNI
Polycythemia vera
CLL with chronic thrombocytopenia
Spinal stenosis
GERD
Depression/anxiety
ECHO 08/21/25: moderate concentric LVH, concentric remodeling with contraction dyssynchronous and EF 15 to 20%, mild to moderate MR, mild AR, mildly dilated ascending aorta
Plan:
- Was admitted for dobutamine assisted diuresis for optimization post CABG. Today Status post CABG x 4 and site to VASQUEZ to LAD, composite VASQUEZ to RSVG to high diagonal sequential OM, AO to RSVG to RPDA, placement of direct aortic 5.5 Impella LVAD
09/17/2025
- Extubated, but remains sedated. On supplemental O2. able to make needs known
- Did not tolerate IV nitro with hypotension on floor, and reportedly prior decompensation IntraOp. Will avoid
- Currently on dobutamine at 5, levo at 4, Cardene at 2.5 with CI 1.95
- With Impella 5.[address] at P4
- He has chronic thrombocytopenia as a result of CLL. He received 1 unit of platelets. Follow blood counts postoperatively
- EKG AV paced rhythm. Follow on telemetry
- Chest x-ray reviewed, without pneumothorax
- Will need echo 90 days post revascularization to assess for improvement in EF
- Prior to admission was on regimen of Coreg 12.5 mg twice daily, losartan 25 mg twice daily, Jardiance. Would resume postoperatively as able
- Discussed with nursing
Data Reviewed
-
EKG: Tracing Personally Visualized and interpreted
Radiology: Report Reviewed by me
Medical Tests (Nuc Med, Echo etc): Report Reviewed by me
Labs: Labs Reviewed by me
Old Records: Reviewed
[2025-09-17 17:25] LABS: Glucose - Point of Care 138 mg/dl (70-99)
[2025-09-17 17:34] LABS: Hematocrit 41.7 % (39.0-52.0); Hemoglobin 13.5 g/dL (13.0-18.0); Mean Corp Hgb Conc. 32.4 g/dL (33.0-37.0); Mean Corpuscular Volume 93.9 fL (80.0-94.0); Platelet Count 122 10^3/uL (130-400); Red Cell Dist. Width 14.0 % (11.5-14.5)
--- NOTE | 2025-09-17 17:35 | PTCARENOTE ---
After successful Cpap trial pt extubated to 6 L NC at 1630. Pulse ox 94%. Pt continues to have frequent Pvc's Amio drip initiated. CI down to 1.61 CT [employer] DEVELOPER notified.
[2025-09-17 17:57] LABS: Blood Urea Nitrogen 23 mg/dl (9-20); Calcium 8.6 mg/dl (8.4-10.2); Carbon Dioxide 24 mmol/L (22-30); Chloride 106 mmol/L (98-107); Estimated Creatinine Clearance 55 ml/min; Glucose 150 mg/dl (70-99); LDH 313 U/L (120-246); Potassium 4.4 mmol/L (3.5-5.1); Sodium 133 mmol/L (135-145); eGFR > 60.00
[2025-09-17 19:04] LABS: Glucose - Point of Care 141 mg/dl (70-99)
[2025-09-17] MEDS: ROXICODONE 5 MG PO ×2 (19:05→23:33)
--- NOTE | 2025-09-17 20:00 | PTCARENOTE ---
assumed care of patient @ 1900. Recieved pt laying in bed -
Neuro- Aox3. Moves all extremities appropriately, pupils equal round reactive.
CV - NSR on tele. ocasional PVCs/bigeminy. BP goal 90-[address] loomis. AV wires set to DDDI 30,12,10. PAPs 30s/10s, CVP ~ 12, C.I less than 2. 5.5 impella present through L neck at p5, 36 cm. good waveforms. +rub on auscultation
Lungs - diminished throughout satting high 90s on 6L, will titrate 02. Taking shallow breaths, IS encouraged. 3 chest tubes to wall suction no air leak, tidaling or crepitus noted.
GI- BS hypoactive. tolerating sips and chips.
- indwelling adler catheter intact draining clear concentraed tk urine.
Skin- MSI CDI billy with glue. B/l leg harvest sites covered with aquacels and gustavo wraps.
Lines - R IJ cordis with swan at 40. [place] is apparently not lockable but is clamped to sheets to prevent migration, marked at 40cm which is where it has been. L radial a line, R arm PIV/. Central lines zeroed, flushed.
Drips- Amio per protocol, Insulin per protocol, Levo at 5, dobut at 5.
[2025-09-17 20:09] LABS: B.E. -0.7 mmol/L; HCO3 23.4 mmol/L (21-28); O2 Saturation % 99.3 % (94-98); PCO2 36 mmHg (35-48); PO2 92 mmHg (83-108); Potassium 4.1 mMOL/L (3.5-5.1); Sodium 135 mMOL/L (136-145)
[2025-09-17] MEDS: ANCEF 5 IV (20:16)
[2025-09-17] MEDS: SENOKOT 8.6 MG PO (20:16)
[2025-09-17 20:29] LABS: Blood Urea Nitrogen 26 mg/dl (9-20); Calcium 8.4 mg/dl (8.4-10.2); Carbon Dioxide 24 mmol/L (22-30); Chloride 107 mmol/L (98-107); Estimated Creatinine Clearance 55 ml/min; Glucose 136 mg/dl (70-99); Potassium 4.1 mmol/L (3.5-5.1); Sodium 135 mmol/L (135-145); eGFR > 60.00
[2025-09-17 20:59] LABS: Glucose - Point of Care 128 mg/dl (70-99)
[2025-09-17] MEDS: DILAUDID 0.25 MG IV (21:37)
[2025-09-17] MEDS: PROSCAR 5 MG PO (21:40)
[2025-09-17] MEDS: NEURONTIN 100 MG PO (21:40)
[2025-09-17] MEDS: PACERONE 200 MG PO (21:40)
[2025-09-17] MEDS: LIPITOR PO (21:40)
[2025-09-17 22:02] LABS: Glucose - Point of Care 137 mg/dl (70-99)
[2025-09-17 22:02] LABS: Magnesium 2.5 mg/dl (1.6-2.3)
[2025-09-17] MEDS: LR 500 IV (22:37)
[2025-09-17 22:58] LABS: Glucose - Point of Care 105 mg/dl (70-99)
--- NOTE | 2025-09-17 23:08 | PTCARENOTE ---
pt with frequent suction alarms, has PVCs and drops pressures and then has a suction alarm. Fluids are already infusing LR at 50/hr. OK to turn down to p4 per ctpa.
[2025-09-18] VITALS (26 sets, daily range): BP systolic 70–134; BP diastolic 45–83; BMI 29.1
[2025-09-18] MEDS: ALBUMIN 5% 250 IV (00:03)
[2025-09-18 00:12] LABS: Glucose - Point of Care 108 mg/dl (70-99)
[2025-09-18 01:19] LABS: B.E. -0.9 mmol/L; HCO3 23.5 mmol/L (21-28); O2 Saturation % 95.1 % (94-98); PCO2 37 mmHg (35-48); PO2 63 mmHg (83-108); Potassium 3.9 mMOL/L (3.5-5.1); Sodium 134 mMOL/L (136-145)
[2025-09-18 01:20] LABS: O2 Therapy NC
[2025-09-18] MEDS: DILAUDID 0.25 MG IV (01:21)
--- NOTE | 2025-09-18 01:32 | PTCARENOTE ---
after volume given pt hypertensive to 130s, cardene started at 2.5
[2025-09-18] MEDS: KCL 50 IV ×2 (01:42→09:10)
[2025-09-18 01:49] LABS: Blood Urea Nitrogen 28 mg/dl (9-20); Calcium 8.5 mg/dl (8.4-10.2); Carbon Dioxide 25 mmol/L (22-30); Chloride 107 mmol/L (98-107); Estimated Creatinine Clearance 50 ml/min; Glucose 93 mg/dl (70-99); LDH 295 U/L (120-246); Potassium 4.0 mmol/L (3.5-5.1); Sodium 134 mmol/L (135-145); eGFR > 60.00
[2025-09-18] MEDS: CORDARONE 259 MG IV ×3 (02:00→17:55)
[2025-09-18 02:03] LABS: Hematocrit 34.2 % (39.0-52.0); Hemoglobin 11.4 g/dL (13.0-18.0); Mean Corp Hgb Conc. 33.3 g/dL (33.0-37.0); Mean Corpuscular Volume 91.0 fL (80.0-94.0); Platelet Count 99 10^3/uL (130-400); Red Cell Dist. Width 14.1 % (11.5-14.5)
[2025-09-18 02:04] LABS: Glucose - Point of Care 98 mg/dl (70-99)
--- NOTE | 2025-09-18 02:31 | W.PN.CT ---
Addendum entered and electronically signed by ACOSTA Guerra 09/18/25 12:18:
Repositioning CPT Code 32151
Original Note:
Today's Communication / Plan
-
-pod #1
-no significant issues overnight
-in nsr with PVCs, PACs
-Impella @ P4
-CI 2.29, CO 4.44, SVR 900, mVO2 75.6. Drips: Dobut 5, Cardene 7.5, Amio 1, Levo is off, Insulin, LR 500cc @ 75cc/hr
-CT outputs: 2 meds 200/370 , L pleur 20/45 in 12/24 hrs
-hypoxia, pO2 60 on 6L NC - suspect some shunting with Cardene, switched to midflow 10L, wean Cardene, encourage IS
-gave 1 Amio bolus for PVCs/PACs
-wean off Impella as tolerated
-wean off drips as tolerated
-holding BB while on Dobut, continue po Amio
-maintain swan, pw, Cordis, Kee while on inotrops
-monitor rhythm
-encourage IS
Assessment / Plan
-
80 year old male with a history of MVCAD and ICM admitted for planned CABG x4 (VASQUEZ-LAD, RSVG-D2, RSVG-OM, RSVG-RPDA), possibly with Impella 5.5 support, and LAAE on 09/[address] Cartagena. Admitted pre-operatively for dobutamine assisted diuresis and
optimization prior to surgery
-s/p CABG x 4 (In situ VASQUEZ to LAD, Composite VASQUEZ to RSVG to High Diag seq OM, Ao to RSVG to RPDA); Placement of a direct aortic 5.5 Impella LVAD via 10 mm graft directly anastomosed to the ascending thoracic aorta by Dr Cartagena on 09/17/25, pod #1
-intraop PASQUALE: His left ventricular ejection fraction preoperatively was 15% with global hypokinesis. He had a mild degree of mitral valve insufficiency. He was very hypertensive preoperatively. Following surgery his EF remained approximately 15
to 20% although his LV looked better decompressed with the 5.[address] flowing at P4. He had no new regional wall motion abnormalities and RV remained normal in both size and function. Of note his ascending thoracic aorta was a
little bit ectatic and somewhat friable. Multiple repair sutures were placed at the base of the 10 mm graft as well as antegrade site with pledgeted sutures.
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
-Severe ICM with LVEF of 15% and global hypokinesis
-SYDNI
-HFrEF
-Cataracts
-TN
-Enlarged prostate
-HTN/HLD
-CLL with chronically elevated white count and depressed platelet count
-Enlarged prostate
-Thrombocytopenia preop
-Urinary retention
-hematuria preop
-acute postop blood loss anemia
-acute on chronic postop thrombocytopenia
-acute postop atelectasis/ pulmonary insufficiency
-acute postop hypovolemia with subsequent hypervolemia
Discussed patient care with: Nursing and Care Team
Subjective
-
Date of Service: September 18, 2025
Objective Data
-
PT 18.9 Sec (11.4-14.6) H 09/17/25 13:10
INR 1.56 09/17/25 13:10
APTT 34.4 Sec (23.4-35.0) 09/17/25 13:10
Vital Signs
Vital Signs
Temp Pulse Resp BP Pulse Ox
98.1 F 63 22 101/55 95
09/18/25 02:00 09/18/25 02:00 09/18/25 02:00 09/18/25 02:00 09/18/25 02:00
CT Intake/Output/Weight
09/17/25 09/17/25 09/18/25
06:59 18:59 06:59
Intake Total 240 / 1100 997.2 / 1576.8 579.6 / 1576.8
Output Total 475 / 875 520 / 885 365 / 885
Balance -235 / 225 477.2 / 691.8 214.6 / 691.8
SaO2: 95
Physical Exam
-
General: Awake and AOx3
Cardiovascular: Regular rate & rhythm (PACs, PVCs), No Murmurs and No Rub
Respiratory: Decreased Breath Sounds
Sternum: Stable
Incision: Clean, Dry and Intact
Extremities: No Edema
Abdomen: soft, nontender, nondistended, + decreased bowel sounds
Data Reviewed
-
Lab Results: Results Reviewed
Medications: Active Meds Reviewed
Chest X-Ray: Report Reviewed and Image Reviewed
ECG: Report Reviewed and Image Reviewed
[2025-09-18] MEDS: CALCIUM GLUCONATE 100 IV (03:04)
[2025-09-18] MEDS: CORDARONE 103 MG IV (03:57)
[2025-09-18] MEDS: ROXICODONE 5 MG PO ×4 (03:59→20:55)
[2025-09-18] MEDS: ANCEF 5 IV ×2 (04:00→12:23)
[2025-09-18 04:56] LABS: B.E. -2.3 mmol/L; HCO3 22.5 mmol/L (21-28); O2 Saturation % 93.4 % (94-98); PCO2 38 mmHg (35-48); PO2 60 mmHg (83-108); Potassium 4.1 mMOL/L (3.5-5.1); Sodium 133 mMOL/L (136-145)
[2025-09-18 05:01] LABS: Glucose - Point of Care 150 mg/dl (70-99)
[2025-09-18 05:08] LABS: Hematocrit 34.2 % (39.0-52.0); Hemoglobin 11.2 g/dL (13.0-18.0); Mean Corp Hgb Conc. 32.7 g/dL (33.0-37.0); Mean Corpuscular Volume 91.7 fL (80.0-94.0); Platelet Count 95 10^3/uL (130-400); Red Cell Dist. Width 14.1 % (11.5-14.5)
[2025-09-18 05:12] LABS: Fibrinogen 282 MG/DL (199-459); INR 1.43; PT 17.7 Sec (11.4-14.6)
[2025-09-18 05:14] LABS: D-Dimer 0.72 ug/mlFEU (0.00-0.50)
[2025-09-18 05:19] LABS: Albumin 2.8 g/dl (3.5-5.0)
[2025-09-18 05:29] LABS: ALT (SGPT) 15 U/L (0-50); AST (SGOT) 45 U/L (17-59); Alkaline Phosphatase 50 U/L (38-126); Blood Urea Nitrogen 30 mg/dl (9-20); Calcium 8.9 mg/dl (8.4-10.2); Carbon Dioxide 23 mmol/L (22-30); Chloride 106 mmol/L (98-107); Estimated Creatinine Clearance 46 ml/min; Glucose 145 mg/dl (70-99); Magnesium 2.3 mg/dl (1.6-2.3); Potassium 4.3 mmol/L (3.5-5.1); Sodium 135 mmol/L (135-145); Total Protein 4.8 g/dl (6.3-8.2); eGFR > 60.00
--- NOTE | 2025-09-18 05:31 | RESPNOTE ---
Placed Pt on 10L mid flow due to PaO2 being 60 on last blood gas. Pt is tolerating the 10L well. Pt educated on using Yankauer for suctioning oral secretions- pt is coughing up large thick amount of mucous.
[2025-09-18] MEDS: CARDENE 200 IV (05:45)
[2025-09-18 05:47] LABS: LDH 322 U/L (120-246)
[2025-09-18] MEDS: ZOFRAN 4 MG IV (06:14)
[2025-09-18] MEDS: TYLENOL 975 MG PO ×3 (06:16→20:55)
--- NOTE | 2025-09-18 06:26 | PTCARENOTE ---
p02 low, switched to MF 10L per CTPA.
[2025-09-18 07:08] LABS: Glucose - Point of Care 136 mg/dl (70-99)
[2025-09-18] MEDS: NOVOLIN R INSULIN INFUSION 100 IV (07:12)
[2025-09-18] MEDS: VITAMIN D3 (cholecalciferol) PO (07:17)
[2025-09-18] MEDS: THERAGRAN PO (07:17)
--- NOTE | 2025-09-18 07:18 | PTCARENOTE ---
Assumed care of patient from rate examiner RN. AAO x 3. SR on monitor. Impella 5.5 at 36 cm Lt neck. Dressing c,d,i. Impella at P 4. Rt IJ cordis with swan at 40 cm. Lt radial A line transducing. Lines leveled, recalibrated and flushed. AV
wires to DDI 30. No pacing noted. 10 L midflow pulse ox of 94%. Is to 500. Producing large amounts of thick clear/white sputum. Chest tubes x 3 to - 20 cm suction. No air leak or crepitus noted. Abdomen soft and non tender, denies nausea.
Kee draining tk urine. Bilateral SVG sites c,d,i. Trace Edema appreciated. Pulses palpable. Drips infusing on handoff as follows: Amiodarone, Insulin, Cardene, Dobutamine. Plan for day discussed.
--- NOTE | 2025-09-18 07:25 | W.PN.INTV ---
Today's Communication / Plan
Recommendations
Tolerated extubation
Wean FiO2
Continue PA catheter and Impella-wean as tolerated
Wean inotropes and pressors as tolerated
Amiodarone continues
Assessment
-
80-year-old former smoking male who quit smoking in the 1980s who has CAD, hypertension, CLL, enlarged prostate with severe ischemic cardiomyopathy with preoperative EF 15% noted to have multivessel CAD with previous MIs and multiple stents
underwent CABG x 4 as well as Impella device implantation by Dr. Cartagena 09/17/2025 and custodial manager consulted for postoperative ventilator/critical care management 09/17/2025.
CAD-multivessel with severe ischemic cardiomyopathy-EF 15% on 08/21/2025 and improved to 40% on 09/16/2025 on dobutamine
Status post CABG x 4-VASQUEZ-LAD, composite VASQUEZ to RSVG to high diagonal sequential OM, AO to RSVG to RPDA, Impella placement, ventricular/atrial pacers temporary-Dr. Cartagena-09/17/2025
Mild hyperglycemia-blood sugar 118
Pulmonary nodule
Conditions present prior to admission:
CAD/MIs/stents.
Hypertension
? CLL.
BPH.
Cataract. Cholecystectomy. Carpal tunnel. Hernia repair.
Plan
Tolerated extubation
Wean FiO2
Incentive spirometry
Nebulizers if needed-currently not bronchospastic
Aspiration precautions
Pulmonary artery catheter parameters continue to be followed
Pressors/antihypertensive/inotropes/diuretics will be provided as needed
Impella device postoperatively continues-weaning per cardiothoracic surgery-transition to P3
Trial Entresto and wean Cardene
Probably will need LifeVest versus ICD/PPM
Transesophageal echocardiogram 09/17/2025-EF 15-20%, mild mitral regurgitation
Monitor chest tube output
Monitor hemoglobin
Monitor platelet count and coags
Transfuse blood product if needed
CT surgery following chest tubes
Monitor blood sugar
Insulin drip per protocol
Aspiration precautions
VAP prevention protocol
DVT prophylaxis
Early nutrition
Early mobilization
Outpatient pulmonary follow-up with repeat CT chest in 12 months with incidental 4 mm right lower lobe nodule found 09/10/2025
Critical care statement: A total of 50 minutes of critical care time was provided for this patient today. This includes management of ventilator, spontaneous breathing trial, arterial blood gases, pressors, of unstable vital signs, evaluation of the
patient at bedside, reviewing the patient's pertinent medical records including radiographs, microbiology, laboratory evaluations, and discussion with primary team and critical care nursing.
Diagnostic data:
CT angiography 09/10/2025-ascending thoracic aorta 3.6 cm, 4 mm lung nodule right lower lobe
Echocardiogram 09/16/2025-EF 40%, trace mitral regurgitation
Subjective Dataa
Subjective Data
Date of Service:
Date of Service: September 18, 2025
Chief Complaint: Drier Operator Helper Follow Up, Pulmonary Follow Up and Vent Management Follow Up
Subjective:
Tolerated extubation, still has Impella, pain controlled, no shortness of breath at rest or abdominal pain
Review of Systems
General: Other (Per HPI)
Objective Data
Data Reviewed
Vital Signs / I&O / Oxygen:
Vital Signs
Temp Pulse Resp BP Pulse Ox
98.4 F 64 21 97/53 94
09/18/25 07:00 09/18/25 07:00 09/18/25 07:00 09/18/25 07:00 09/18/25 07:00
Intake and Output
09/17/25 09/18/25 09/19/25
06:59 06:59 06:59
Intake Total 1100 / 1100 2031.8 / 2130.6 98.8 / 98.8
Output Total 875 / 875 1095 / 1125 30 / 30
Balance 225 / 225 936.8 / 1005.6 68.8 / 68.8
SaO2 [SIMV] 94
SaO2 94
Nasal Cannula flow liters per 6
minute
Physical Exam
General: Respiratory Distress (n) and Comfortable
HEENT: Normocephalic, Anicteric and Moist Mucous Membranes
Cardiovascular: Regular Rhythm and Murmur
Respiratory: Wheeze (n), Crackles (Basilar), Rhonchi (n), Non-Labored Respirations, Accessory Resp Muscle Use (n), Stridor (n) and Chest Tube
GI: Soft, Non Distended and Non Tender
Neurology: Awake, Alert and No Motor Deficits
Skin: Warm, Good Color, Cyanosis (n), Jaundice (n) and Rash (n)
Labs/Micro/Reports
Laboratory Results
09/17/25 09/17/25 09/17/25
13:08 13:10 15:57
PT 18.9 H
INR 1.56
APTT 34.4
pH Cancelled 7.39 7.41
pCO2 Cancelled 41 38
pO2 Cancelled 79 L 69 L
HCO3 Cancelled 24.8 24.1
O2 Delivery Level Cancelled
09/17/25 09/17/25 09/18/25
20:00 20:01 01:07
PT
INR
APTT
pH Cancelled 7.42 7.41
pCO2 Cancelled 36 37
pO2 Cancelled 92 63 L
HCO3 Cancelled 23.4 23.5
O2 Delivery Level Cancelled Nc
09/18/25
04:48
PT 17.7 H
INR 1.43
APTT
pH 7.38
pCO2 38
pO2 60 L
HCO3 22.5
O2 Delivery Level
Microbiology
09/16/25 05:27 Urine Urine Culture - Final
NO GROWTH
[2025-09-18 07:51] LABS: B.E. -2.0 mmol/L; HCO3 23.1 mmol/L (21-28); O2 Saturation % 97.7 % (94-98); PCO2 40 mmHg (35-48); PO2 68 mmHg (83-108); Potassium 3.9 mMOL/L (3.5-5.1); Sodium 133 mMOL/L (136-145)
[2025-09-18] MEDS: PLAVIX 75 MG PO (08:28)
[2025-09-18] MEDS: PROTONIX 40 MG PO (08:28)
[2025-09-18] MEDS: LOW STRENGTH ASPIRIN 81 MG PO (08:28)
[2025-09-18] MEDS: BACTROBAN 2% OINTMENT 1 APPLIC NASAL ×2 (08:28→19:20)
[2025-09-18] MEDS: NEURONTIN 100 MG PO ×3 (08:28→21:59)
[2025-09-18] MEDS: SENOKOT 8.6 MG PO ×2 (08:29→19:20)
[2025-09-18] MEDS: MAGNESIUM OXIDE 400 MG PO ×2 (08:29→19:20)
[2025-09-18] MEDS: ENTRESTO 24 MG/26 MG 1 TAB PO ×2 (08:29→19:20)
[2025-09-18] MEDS: PACERONE 200 MG PO ×3 (08:29→21:59)
[2025-09-18] MEDS: FLEXERIL 5 MG PO ×2 (08:35→21:59)
[2025-09-18 08:42] LABS: Blood Urea Nitrogen 31 mg/dl (9-20); Calcium 8.7 mg/dl (8.4-10.2); Carbon Dioxide 25 mmol/L (22-30); Chloride 106 mmol/L (98-107); Estimated Creatinine Clearance 46 ml/min; Glucose 103 mg/dl (70-99); Potassium 4.1 mmol/L (3.5-5.1); Sodium 134 mmol/L (135-145); eGFR > 60.00
[2025-09-18 09:07] LABS: Glucose - Point of Care 79 mg/dl (70-99)
[2025-09-18 10:19] LABS: Glucose - Point of Care 93 mg/dl (70-99)
--- NOTE | 2025-09-18 10:26 | PTCARENOTE ---
Hourly urine output decreased to 15 ml last hour from 25 ml the hour prior. CT AUDIT PRACTICE INTERN notified. Orders obtained.
[2025-09-18] MEDS: LASIX 20 MG IV (10:40)
[2025-09-18] MEDS: FLEXBUMIN 100 IV ×2 (10:40→17:54)
[2025-09-18] MEDS: NSS IV (10:42)
--- NOTE | 2025-09-18 10:51 | W.PN.UPDATE ---
Update Note
Progress Note Update
80 y/o male now s/p CABG x 4 (In situ VASQUEZ to LAD, Composite VASQUEZ to RSVG to High Diag seq OM, Ao to RSVG to RPDA); Placement of a direct aortic 5.5 Impella LVAD via 10 mm graft directly anastomosed to the ascending thoracic aorta by Dr Cartagena on
09/17/25 in CVICU for post-operative management.
Neuro:
#QUINTON
- extubated yesterday
Cardiovascular:
#Cardiogenic shock s/p impella 5.5 placement
- Maintain maps >65
- Maintain impella P-level at P4
>>keep d5W and bicarb purge solution
- Continue @ DTX @5
- Titrate levo as able
- start entresto today; continue as tolerated
- Maintain SGC; Goal Tyesha >1 and CVP <15 CI >1.8
- Strict I&O
- Monitor CT output
- TTE today to check placement
- Evaluate daily for removal
- eventual GDMT
- Cards consulted
Pulmonary:
#VDRF (resolved)
#Pulmonary Insufficiency
- Wean FIO2 as able for Sats >90%
- oral hygiene
- Encourage IS/PEP
- channeler insole/pulm consulted
GI:
#QUINTON
- daily CMP; monitor trend
- statins and tylenol on hold
- Continue IV protonix
- Start clears
:
#QUINTON
- strict I&O
Endo:
#QUINTON
-Continue insulin gtt
Heme:
#Anemia
#Hemolysis
- continue frequent coag monitoring and administration of supportive products
- must hold at least 2plts in house for MCS
- must maintain active type and screens
-Transfusion goals Hgb >8 and plts >75K
CPT code 05002 (Critical care monitoring)
CPT Code 94946 (Device management)
--- NOTE | 2025-09-18 11:44 | CM ---
Reviewed chart. Met with Mr. Hackett to review discharge plans. He states he is doing well. Will continue to follow for any discharge concerns Prior to admission he resides with his spouse in a [place] community. He has been there for four years.
His home is a one story home with a loft without any steps to enter. He has a first floor set-up. Prior to admission he was independent with ambulation and adls. He has a single point cane at home to use if needed. He has a prescription plan and
uses [facility]. His spouse will be home to assist in his care if needed. Will need to see his functional level to see if he will have any skilled care needs Medical work-up in progress. The discharge plan is to return home with his spouse and
a home visit by the Transitional Care Nurse versus some level of inpatient rehab. if indicated when medically stable.
[2025-09-18 12:12] LABS: Glucose - Point of Care 109 mg/dl (70-99)
[2025-09-18 12:24] LABS: Hematocrit 31.7 % (39.0-52.0); Hemoglobin 10.5 g/dL (13.0-18.0); Mean Corp Hgb Conc. 33.1 g/dL (33.0-37.0); Mean Corpuscular Volume 92.7 fL (80.0-94.0); Platelet Count 75 10^3/uL (130-400); Red Cell Dist. Width 14.2 % (11.5-14.5)
[2025-09-18 12:26] LABS: B.E. -3.0 mmol/L; HCO3 22.0 mmol/L (21-28); O2 Saturation % 97.9 % (94-98); PCO2 38 mmHg (35-48); PO2 78 mmHg (83-108); Potassium 4.5 mMOL/L (3.5-5.1); Sodium 132 mMOL/L (136-145)
--- NOTE | 2025-09-18 12:58 | W.PN.CARDCBS ---
Addendum entered and electronically signed by Ridge Donohue DO 09/18/25 15:40:
I saw and examined the patient.
The Childcare Aide's note was reviewed and I agree with the note.
Comment:
Plan:
Continue Impella for left ventricular support as per CT surgery
Wean dobutamine as able
Remains sinus rhythm on IV amiodarone
Continue gentle IV diuresis
Repeat echo prior to DC. CT surgery input appreciated. Patient is to be considered for LifeVest given cardiomyopathy, pending EF prior to DC
He has chronic thrombocytopenia from CLL
Discussed with nursing.
Original Note:
Today's Communication / Plan
-
wean dobut
wean impella
in SR on IV amio
echo prior to DC. would consider for lifevest upon DC given CM
Impression / Plan
-
Primary proofreader: Dr. Paez of [facility] [place]
Assessment:
CAD
Status post LAD stents 2002, 2005, 2019
Triple-vessel coronary disease including in-stent restenosis of prior LAD stents by cath 08/21/25
Status post CABG x 4 and site to VASQUEZ to LAD, composite VASQUEZ to RSVG to high diagonal sequential OM, AO to RSVG to RPDA, placement of direct aortic 5.5 Impella LVAD 09/17/2025
Ischemic cardiomyopathy, EF 15 to 20%
Chronic heart failure with reduced EF
Mild to moderate MR
Sick sinus syndrome
Hypertension
Hyperlipidemia
SYDNI
Polycythemia vera
CLL with chronic thrombocytopenia
Spinal stenosis
GERD
Depression/anxiety
ECHO 08/21/25: moderate concentric LVH, concentric remodeling with contraction dyssynchronous and EF 15 to 20%, mild to moderate MR, mild AR, mildly dilated ascending aorta
Plan:
- Was admitted for dobutamine assisted diuresis for optimization post CABG. Today Status post CABG x 4 and site to VASQUEZ to LAD, composite VASQUEZ to RSVG to high diagonal sequential OM, AO to RSVG to RPDA, placement of direct aortic 5.5 Impella LVAD
09/17/2025
- Reports feeling relatively well all things considered
-Remains with Impella 5.[address] at P4
- He had ectopy in the form of bigeminy yesterday with resultant hypotension, resulting in initiation of IV Amio
- Remains on dobutamine at 5
- Received 20 mg of IV Lasix without significant response today. Diuresis as per CT surgery. Patient denies shortness of breath. Wean supplemental O2 as able
- Hemoglobin 10.5. Platelets 75. He has chronic thrombocytopenia as a result of CLL
- Currently in sinus rhythm on review of telemetry
- Discussed above with patient's , Harriet who was a pharmacist at [employer], [place] for 38 years. She reports prior to this recent decompensation, patient's EF was in the 30 to 40% range, and recently was noted to decrease to 20%. will discuss
with EP consideration for ICD placement prior to discharge versus 90 days post revascularization. We discussed that likelihood of improvement in his EF to normal is unlikely and patient's agreed/understood this.
- Prior to admission was on regimen of Coreg 12.5 mg twice daily, losartan 25 mg twice daily, Jardiance. Would resume postoperatively as able
- Discussed with nursing, CT surgery AGRICULTURAL EQUIPMENT OPERATOR/PA
Progress Note - Propagation Worker
Subjective
Date of Service: September 18, 2025
Patient overall feeling well.
Objective
Labs:
Labs
Hgb 10.5 g/dL (13.0-18.0) L 09/18/25 12:07
Hct 31.7 % (39.0-52.0) L 09/18/25 12:07
Plt Count 75 10^3/uL (130-400) L D 09/18/25 12:07
PT 17.7 Sec (11.4-14.6) H 09/18/25 04:48
INR 1.43 09/18/25 04:48
APTT 34.4 Sec (23.4-35.0) 09/17/25 13:10
Sodium 134 mmol/L (135-145) L 09/18/25 07:32
Potassium 4.1 mmol/L (3.5-5.1) 09/18/25 07:32
BUN 31 mg/dl (9-20) H 09/18/25 07:32
Creatinine 1.2 mg/dL (0.7-1.3) 09/18/25 07:32
Glucose 103 mg/dl (70-99) H 09/18/25 07:32
Vital Signs and I&O:
Vital Signs
Temp Pulse Resp BP Pulse Ox
98.7 F 60 21 90/51 97
09/18/25 11:59 09/18/25 12:40 09/18/25 12:40 09/18/25 12:00 09/18/25 11:59
Vital Signs
Temp Pulse Resp BP Pulse Ox
98.7 F 60 21 /51 97
09/18/25 11:59 09/18/25 12:40 09/18/25 12:40 09/18/25 12:00 09/18/25 11:59
Intake & Output
09/16/25 09/17/25 09/18/25 09/19/25
07:59 07:59 07:59 07:59
Intake Total 884.4 / 884.4 1100 / 1100 2130.6 / 2249.4 535.2 / 535.2
Output Total 2650 / 2650 875 / 875 1125 / 1200 255 / 255
Balance -1765.6 / -1765.6 225 / 225 1005.6 / 1049.4 280.2 / 280.2
Physical Exam
Physical Exam
GEN: No distress, awake, alert, oriented x3. On supplemental O2
HEENT: supple, anicteric, mmm, EOMI
LUNGS: Diminished at bases, no wheezes
CV: Reg, S1/S2, no murmur
ABD: soft, NT/ND
EXT: No cyanosis, clubbing. trace edema of B/L LE
NEURO: Gross non-focal
SKIN: Warm, pink, dry. No rash. Sternotomy incision c/d/i. CTs in place. impella 5.[address]
[2025-09-18 13:13] LABS: Blood Urea Nitrogen 33 mg/dl (9-20); Calcium 8.6 mg/dl (8.4-10.2); Carbon Dioxide 24 mmol/L (22-30); Chloride 104 mmol/L (98-107); Estimated Creatinine Clearance 39 ml/min; Glucose 106 mg/dl (70-99); LDH 323 U/L (120-246); Potassium 4.4 mmol/L (3.5-5.1); Sodium 133 mmol/L (135-145); eGFR 50.18
[2025-09-18] MEDS: FERRLECIT 110 MG IV (14:09)
--- NOTE | 2025-09-18 14:16 | W.PN.ANS.POP ---
Anesthesia Post Operative
- Anesthesia Post Op Note
Vital Signs Stable-See Nursing Note: Yes
Airway Patent: Yes
Adequate Pain Control: Yes
Change in Mental Status: No
Current Postoperative Nausea & Vomiting: No
Anesthesia Complications: No
General Anesthetic Recall: No
Unplanned Admission: No
Post Op Hydration Adequate: Yes
--- NOTE | 2025-09-18 16:11 | PTCARENOTE ---
Assist x 2 -3 oob to chair . Tolerated well. No dumping from chest tubes noted. BP dipped down into 70's systolic. Levophed restarted as needed. Tolerated x 1 hour. Then back to bed.
[2025-09-18 16:15] LABS: B.E. -3.4 mmol/L; HCO3 21.3 mmol/L (21-28); O2 Saturation % 96.7 % (94-98); PCO2 36 mmHg (35-48); PO2 67 mmHg (83-108); Potassium 4.4 mMOL/L (3.5-5.1); Sodium 130 mMOL/L (136-145)
[2025-09-18 16:35] LABS: Blood Urea Nitrogen 35 mg/dl (9-20); Calcium 8.6 mg/dl (8.4-10.2); Carbon Dioxide 23 mmol/L (22-30); Chloride 103 mmol/L (98-107); Estimated Creatinine Clearance 34 ml/min; Glucose 142 mg/dl (70-99); Potassium 4.4 mmol/L (3.5-5.1); Sodium 129 mmol/L (135-145); eGFR 42.75
--- NOTE | 2025-09-18 17:03 | PTCARENOTE ---
Impella continues with unknown position alarm unable to in put cardiac index as well as not displaying Cardiac output on display. Lead Ingot Molder notified. VSS. LR infusion initiated. Will continue to monitor
[2025-09-18] MEDS: LR 1000 IV (17:05)
[2025-09-18 18:20] LABS: Hematocrit 28.4 % (39.0-52.0); Hemoglobin 9.4 g/dL (13.0-18.0); Mean Corp Hgb Conc. 33.1 g/dL (33.0-37.0); Mean Corpuscular Volume 91.3 fL (80.0-94.0); Platelet Count 73 10^3/uL (130-400); Red Cell Dist. Width 14.3 % (11.5-14.5)
[2025-09-18 18:29] LABS: LDH 306 U/L (120-246)
--- NOTE | 2025-09-18 19:00 | PTCARENOTE ---
report received from previous RN, walking rounds done. pt in bed, AAOx4, denies any pain. VSS. SR on monitor, HR 60s. Impella 5.[address] in place @ L neck, set to P4. CT PA aware of placement alarm. heart tones clear. +peripheral pulses. RIJ cordis with
swan in place w KVOs infusing. last CI 2.38. Dobut gtt infusing @ 5mcg. L radial art line in place, SBP 110s, Levo gtt infusing @ 1mcg. epicardial AV wires in place, set to back up DDI 30, no pacing spikes noted. bilateral breath sounds present. POX
93% on 6LNC. CT x3 in place to -20cm wall suction, drainage WNL, no air leak present. IS encouraged. productive cough noted. +BS; abdomen soft, non tender. adler catheter in place, draining CYU. all surgical sites stable. see worklist for full
assessment, VS, and interventions.
[2025-09-18] MEDS: MUCINEX 1200 MG PO (19:20)
[2025-09-18 20:21] LABS: B.E. -2.5 mmol/L; HCO3 22.5 mmol/L (21-28); O2 Saturation % 96.7 % (94-98); PCO2 39 mmHg (35-48); PO2 67 mmHg (83-108); Potassium 4.2 mMOL/L (3.5-5.1); Sodium 130 mMOL/L (136-145)
[2025-09-18 20:37] LABS: Blood Urea Nitrogen 39 mg/dl (9-20); Calcium 8.5 mg/dl (8.4-10.2); Carbon Dioxide 24 mmol/L (22-30); Chloride 101 mmol/L (98-107); Estimated Creatinine Clearance 34 ml/min; Glucose 131 mg/dl (70-99); Potassium 4.2 mmol/L (3.5-5.1); Sodium 129 mmol/L (135-145); eGFR 42.75
[2025-09-18] MEDS: LIPITOR 40 MG PO (21:59)
[2025-09-18] MEDS: PROSCAR 5 MG PO (21:59)
--- NOTE | 2025-09-18 23:00 | PTCARENOTE ---
no acute changes. pt sleeping. VSS. SR 60s. Impella maintained @ P4. unknown placement signal continues to alarm. last CI 2.8. Dobut gtt maintained @ 5mcg. SBP 120s, Levo gtt off. POX 93% on 6LNC. CT output QNL. CT PA aware of UO. all surgical sites
stable. pt sleeping between care.
[2025-09-19] VITALS (24 sets, daily range): BP systolic 77–147; BP diastolic 41–83; BMI 29.3
[2025-09-19 00:17] LABS: B.E. -2.5 mmol/L; HCO3 22.5 mmol/L (21-28); O2 Saturation % 95.2 % (94-98); PCO2 39 mmHg (35-48); PO2 63 mmHg (83-108); Potassium 4.3 mMOL/L (3.5-5.1); Sodium 131 mMOL/L (136-145)
[2025-09-19 00:37] LABS: Hematocrit 27.3 % (39.0-52.0); Hemoglobin 8.7 g/dL (13.0-18.0); Mean Corp Hgb Conc. 31.9 g/dL (33.0-37.0); Mean Corpuscular Volume 94.8 fL (80.0-94.0); Platelet Count 61 10^3/uL (130-400); Red Cell Dist. Width 14.3 % (11.5-14.5)
[2025-09-19 00:41] LABS: Blood Urea Nitrogen 40 mg/dl (9-20); Calcium 8.3 mg/dl (8.4-10.2); Carbon Dioxide 24 mmol/L (22-30); Chloride 103 mmol/L (98-107); Estimated Creatinine Clearance 32 ml/min; Glucose 116 mg/dl (70-99); Potassium 4.2 mmol/L (3.5-5.1); Sodium 133 mmol/L (135-145); eGFR 39.75
[2025-09-19 01:22] LABS: LDH 279 U/L (120-246)
[2025-09-19] MEDS: FLEXBUMIN 100 IV (02:10)
--- NOTE | 2025-09-19 03:00 | PTCARENOTE ---
no acute changes. VSS. SR 60s-70s. Impella maintained @ P4. unknown placement signal continues to alarm. last CI 3.7. Dobut gtt maintained @ 5mcg. SBP 120s. POX 93% on 8L midflow NC. CT output WNL. CT PA aware of UO. all surgical sites stable. pt
resting between care.
[2025-09-19] MEDS: ROXICODONE 5 MG PO (04:05)
[2025-09-19] MEDS: DILAUDID 0.25 MG IV (04:05)
[2025-09-19 04:31] LABS: B.E. -2.3 mmol/L; HCO3 23.2 mmol/L (21-28); O2 Saturation % 96.4 % (94-98); PCO2 42 mmHg (35-48); PO2 69 mmHg (83-108); Potassium 4.1 mMOL/L (3.5-5.1); Sodium 132 mMOL/L (136-145)
[2025-09-19 04:57] LABS: Blood Urea Nitrogen 42 mg/dl (9-20); Calcium 8.5 mg/dl (8.4-10.2); Carbon Dioxide 25 mmol/L (22-30); Chloride 102 mmol/L (98-107); Estimated Creatinine Clearance 31 ml/min; Glucose 112 mg/dl (70-99); Potassium 4.1 mmol/L (3.5-5.1); Sodium 129 mmol/L (135-145); eGFR 37.12
[2025-09-19 04:58] LABS: ALT (SGPT) 11 U/L (0-50); AST (SGOT) 37 U/L (17-59); Albumin 3.2 g/dl (3.5-5.0); Alkaline Phosphatase 38 U/L (38-126); Blood Urea Nitrogen 41 mg/dl (9-20); Calcium 8.5 mg/dl (8.4-10.2); Carbon Dioxide 25 mmol/L (22-30); Chloride 102 mmol/L (98-107); Estimated Creatinine Clearance 31 ml/min; Glucose 113 mg/dl (70-99); LDH 276 U/L (120-246); Magnesium 2.3 mg/dl (1.6-2.3); Potassium 4.2 mmol/L (3.5-5.1); Sodium 129 mmol/L (135-145); Total Protein 5.1 g/dl (6.3-8.2); eGFR 37.12
[2025-09-19 05:04] LABS: Hematocrit 26.4 % (39.0-52.0); Hemoglobin 8.8 g/dL (13.0-18.0); Mean Corp Hgb Conc. 33.3 g/dL (33.0-37.0); Mean Corpuscular Volume 93.3 fL (80.0-94.0); Platelet Count 61 10^3/uL (130-400); Red Cell Dist. Width 14.3 % (11.5-14.5)
[2025-09-19 05:19] LABS: INR 1.53; PT 18.9 Sec (11.4-14.6)
[2025-09-19 05:20] LABS: Fibrinogen 265 MG/DL (199-459)
[2025-09-19 05:22] LABS: D-Dimer 0.92 ug/mlFEU (0.00-0.50)
--- NOTE | 2025-09-19 06:00 | PTCARENOTE ---
Dr. Cartagena @ bedside - [facility], [facility]–1983 decreased to P3.
[2025-09-19] MEDS: TYLENOL 975 MG PO ×3 (06:29→21:28)
--- NOTE | 2025-09-19 07:29 | W.PN.INTV ---
Today's Communication / Plan
Recommendations
Continues with dobutamine and amiodarone
Impella device might come out today
Monitor renal function closely as well as platelets and chest tube output
Assessment
-
80-year-old former smoking male who quit smoking in the 1980s who has CAD, hypertension, CLL, enlarged prostate with severe ischemic cardiomyopathy with preoperative EF 15% noted to have multivessel CAD with previous MIs and multiple stents
underwent CABG x 4 as well as Impella device implantation by Dr. Cartagena 09/17/2025 and multiple effect evaporator operator consulted for postoperative ventilator/critical care management 09/17/2025.
CAD-multivessel with severe ischemic cardiomyopathy-EF 15% on 08/21/2025 and improved to 40% on 09/16/2025 on dobutamine
Status post CABG x 4-VASQUEZ-LAD, composite VASQUEZ to RSVG to high diagonal sequential OM, AO to RSVG to RPDA, Impella placement, ventricular/atrial pacers temporary-Dr. Cartagena-09/17/2025
Mild hyperglycemia-blood sugar 118
Pulmonary nodule
Conditions present prior to admission:
CAD/MIs/stents.
Hypertension
? CLL.
BPH.
Cataract. Cholecystectomy. Carpal tunnel. Hernia repair.
Plan
Tolerated extubation
Wean FiO2
Incentive spirometry
Nebulizers if needed-currently not bronchospastic
Aspiration precautions
Pulmonary artery catheter parameters continue to be followed
Pressors/antihypertensive/inotropes/diuretics will be provided as needed
Impella device postoperatively continues-weaning per cardiothoracic surgery-transition to P3 on 09/18/2025 and likely will be removed on 09/19/2025 if bedside echocardiogram looks good
Trial Entresto and wean Cardene
Probably will need LifeVest versus ICD/PPM
Transesophageal echocardiogram 09/17/2025-EF 15-20%, mild mitral regurgitation
Amiodarone drip continues
Cardiology following
Monitor chest tube output
Monitor hemoglobin
Monitor platelets-
Monitor platelet count and coags
Transfuse blood product if needed
CT surgery following chest tubes
Serum creatinine trending up
Monitor blood sugar
Insulin drip per protocol
Aspiration precautions
VAP prevention protocol
DVT prophylaxis
Early nutrition
Early mobilization
Outpatient pulmonary follow-up with repeat CT chest in 12 months with incidental 4 mm right lower lobe nodule found 09/10/2025
Critical care statement: A total of 35 minutes of critical care time was provided for this patient today. This includes management of ventilator, spontaneous breathing trial, arterial blood gases, pressors, of unstable vital signs, evaluation of the
patient at bedside, reviewing the patient's pertinent medical records including radiographs, microbiology, laboratory evaluations, and discussion with primary team and critical care nursing.
Diagnostic data:
CT angiography 09/10/2025-ascending thoracic aorta 3.6 cm, 4 mm lung nodule right lower lobe
Echocardiogram 09/16/2025-EF 40%, trace mitral regurgitation
Subjective Dataa
Subjective Data
Date of Service:
Date of Service: September 19, 2025
Chief Complaint: Midlevel Provider Follow Up, Pulmonary Follow Up and Vent Management Follow Up
Subjective:
Feels better, no complaints of shortness of breath, pain controlled, no abdominal pain.
Review of Systems
General: Other (Per HPI)
Objective Data
Data Reviewed
Vital Signs / I&O / Oxygen:
Vital Signs
Temp Pulse Resp BP Pulse Ox
98.5 F 72 19 99/46 93
09/19/25 07:00 09/19/25 07:00 09/19/25 07:00 09/19/25 06:15 09/19/25 07:00
Intake and Output
09/18/25 09/19/25 09/20/25
06:59 06:59 06:59
Intake Total 2031.8 / 2130.6 3714.3 / 3757.0 42.7 / 42.7
Output Total 1095 / 1125 1035 / 1055 20 / 20
Balance 936.8 / 1005.6 2679.3 / 2702.0 22.7 / 22.7
SaO2 [SIMV] 94
SaO2 93
Nasal Cannula flow liters per 8
minute
Physical Exam
General: Respiratory Distress (n) and Comfortable
HEENT: Normocephalic, Anicteric and Moist Mucous Membranes
Cardiovascular: Regular Rhythm and Murmur
Respiratory: Wheeze (n), Crackles (Basilar), Rhonchi (n), Non-Labored Respirations, Accessory Resp Muscle Use (n), Stridor (n) and Chest Tube
GI: Soft, Non Distended and Non Tender
Neurology: Awake, Alert and No Motor Deficits
Skin: Warm, Good Color, Cyanosis (n), Jaundice (n) and Rash (n)
Labs/Micro/Reports
Laboratory Results
09/18/25 09/18/25 09/18/25
07:32 12:07 16:04
PT
INR
pH 7.37 7.37 7.38
pCO2 40 38 36
pO2 68 L 78 L 67 L
HCO3 23.1 22.0 21.3
O2 Delivery Level
09/18/25 09/19/25 09/19/25
20:04 00:02 04:21
PT 18.9 H
INR 1.53
pH 7.37 7.37 7.35
pCO2 39 39 42
pO2 67 L 63 L 69 L
HCO3 22.5 22.5 23.2
O2 Delivery Level
Microbiology
09/16/25 05:27 Urine Urine Culture - Final
NO GROWTH
--- NOTE | 2025-09-19 07:58 | W.PN.CT ---
Today's Communication / Plan
-
-pod #2
-no issues overnight
-CI 3.8, CO 7.4, SVR 506. drips: Dobut 5, Amio 0.5, LR 75cc/hr (done).
-CT outputs: 2 meds 120/265, L pleur 80/160 in 12/24 hrs
-Impella flow was decreased to P3 this am.
-Amio drip since OR for frequent PVCs
-Cr is trending up - 1.8 today
-follow platelets - 61K today (2 platelets on hold at blood bank)
-wean off Impella as tolerated
Assessment / Plan
-
80 year old male with a history of MVCAD and ICM admitted for planned CABG x4 (VASQUEZ-LAD, RSVG-D2, RSVG-OM, RSVG-RPDA), possibly with Impella 5.5 support, and LAAE on 09/[address] Cartagena. Admitted pre-operatively for dobutamine assisted diuresis and
optimization prior to surgery
-s/p CABG x 4 (In situ VASQUEZ to LAD, Composite VASQUEZ to RSVG to High Diag seq OM, Ao to RSVG to RPDA); Placement of a direct aortic 5.5 Impella LVAD via 10 mm graft directly anastomosed to the ascending thoracic aorta by Dr Cartagena on 09/17/25, pod #2
-intraop PASQUALE: His left ventricular ejection fraction preoperatively was 15% with global hypokinesis. He had a mild degree of mitral valve insufficiency. He was very hypertensive preoperatively. Following surgery his EF remained approximately 15
to 20% although his LV looked better decompressed with the 5.[address] flowing at P4. He had no new regional wall motion abnormalities and RV remained normal in both size and function. Of note his ascending thoracic aorta was a
little bit ectatic and somewhat friable. Multiple repair sutures were placed at the base of the 10 mm graft as well as antegrade site with pledgeted sutures.
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
-Severe ICM with LVEF of 15% and global hypokinesis
-SYDNI
-HFrEF
-Cataracts
-TN
-Enlarged prostate
-HTN/HLD
-CLL with chronically elevated white count and depressed platelet count
-Enlarged prostate
-Thrombocytopenia preop
-Urinary retention
-hematuria preop
-acute postop blood loss anemia
-acute on chronic postop thrombocytopenia
-acute postop atelectasis/ pulmonary insufficiency
-acute postop hypovolemia with subsequent hypervolemia
-MONO
Discussed patient care with: Nursing and Care Team
Subjective
-
Date of Service: September 19, 2025
Objective Data
-
PT 18.9 Sec (11.4-14.6) H 09/19/25 04:21
INR 1.53 09/19/25 04:21
APTT 34.4 Sec (23.4-35.0) 09/17/25 13:10
Vital Signs
Vital Signs
Temp Pulse Resp BP Pulse Ox
98.5 F 72 19 99/46 93
09/19/25 07:00 09/19/25 07:00 09/19/25 07:00 09/19/25 06:15 09/19/25 07:00
CT Intake/Output/Weight
09/18/25 09/19/25 09/19/25
18:59 06:59 18:59
Intake Total 2457.1 / 3757.0 1257.2 / 3757.0 42.7 / 42.7
Output Total 555 / 1055 480 / 1055 20 / 20
Balance 1902.1 / 2702.0 777.2 / 2702.0 22.7 / 22.7
SaO2: 93
Physical Exam
-
General: Awake and AOx3
Cardiovascular: Regular rate & rhythm (PACs, PVCs), No Murmurs and No Rub
Respiratory: Decreased Breath Sounds
Sternum: Stable
Incision: Clean, Dry and Intact
Abdomen: soft, nontender, nondistended, + decreased bowel sounds
Extremities: No Edema
Data Reviewed
-
Lab Results: Results Reviewed
Medications: Active Meds Reviewed
Chest X-Ray: Report Reviewed and Image Reviewed
ECG: Report Reviewed and Image Reviewed
[2025-09-19 07:59] LABS: B.E. -3.6 mmol/L; HCO3 22.1 mmol/L (21-28); O2 Saturation % 97.7 % (94-98); PCO2 42 mmHg (35-48); PO2 76 mmHg (83-108); Potassium 4.1 mMOL/L (3.5-5.1); Sodium 131 mMOL/L (136-145)
[2025-09-19] MEDS: BACTROBAN 2% OINTMENT 1 APPLIC NASAL ×2 (08:07→20:59)
[2025-09-19] MEDS: NEURONTIN 100 MG PO ×3 (08:08→21:28)
[2025-09-19] MEDS: VITAMIN D3 (cholecalciferol) 50 MCG PO (08:08)
[2025-09-19] MEDS: ENTRESTO 24 MG/26 MG 1 TAB PO (08:08)
[2025-09-19] MEDS: PROTONIX 40 MG PO (08:08)
[2025-09-19] MEDS: SENOKOT 8.6 MG PO ×2 (08:08→20:59)
[2025-09-19] MEDS: MAGNESIUM OXIDE 400 MG PO ×2 (08:08→20:59)
[2025-09-19] MEDS: MUCINEX 1200 MG PO ×2 (08:08→20:59)
[2025-09-19] MEDS: PACERONE 200 MG PO ×3 (08:08→21:28)
[2025-09-19] MEDS: THERAGRAN 1 TABLET PO (08:09)
[2025-09-19] MEDS: PLAVIX 75 MG PO (08:09)
[2025-09-19] MEDS: LOW STRENGTH ASPIRIN 81 MG PO (08:09)
--- NOTE | 2025-09-19 08:45 | PTCARENOTE ---
Assumed care of patient at 0700. Pt is awake, alert, and oriented. No complaints of pain at this time. Pt SR with PVC's, HR 67, BP 125/46 MAP 63. PA 38/23, CVP 18, CO 5.96, CI 3.07, SVR 637. Impella 5.[address] set to P3, at 35cm. Impella placement
unknown, CT Surgeon aware. ECHO done at bedside. Epicardial AV wires in place set to DDDI. Pulses palpable. Pulse oximetry 96% on 8L midflow. Mediastinal chest tubes x2 and left pleural chest tube in place to -20 suction, no sign of air leak or
crepitus, drainage serosanguineous. Pt tolerating PO medications. Kee catheter remains in place, pt with low urine output. CT JADON, Randa, made aware. Midsternal incision approximated and PRODUCTION LINE WELDER. Bilateral leg incisions with post surgical dressings
in place. Right IJ cordis intact, [place] at 40cm. Left radial Tameka intact. Pt remains on Dobutamine at 5mcg/kg/min. Amio gtt d/c'd per order.
[2025-09-19 08:57] LABS: Blood Urea Nitrogen 43 mg/dl (9-20); Calcium 8.2 mg/dl (8.4-10.2); Carbon Dioxide 23 mmol/L (22-30); Chloride 103 mmol/L (98-107); Estimated Creatinine Clearance 29 ml/min; Glucose 117 mg/dl (70-99); Potassium 4.1 mmol/L (3.5-5.1); Sodium 132 mmol/L (135-145); eGFR 34.79
[2025-09-19] MEDS: XYLOCAINE 2% MDV 20 ML INFIL (09:15)
--- NOTE | 2025-09-19 10:00 | PTCARENOTE ---
Impella 5.[address] surgeons and CT PA at bedside. Pt tolerated well. Pt remains SR with HR 78. BP 134/57 MAP 76. PA 40/22, CVP 19.
--- NOTE | 2025-09-19 10:02 | W.PN.UPDATE ---
Update Note
Progress Note Update
CARDIAC SURGERY BEDSIDE PROCEDURE NOTE:
Preoperative Dx:
Severe ischemic cardiomyopathy with LVEF of 15% with global hypokinesis
Status post coronary artery bypass grafting x 4 and planned direct placement of Impella 5.5 LVAD via central cannulation on 09/17/2025
Functional improvement in LV function, no longer requiring LVAD support
Postoperative Dx:
Same
Procedures:
Bedside removal of Impella 5.5 with management of Hemashield graft
Surgeons:
Tray Resendez MD (primary)
Qing Jones MD (co-surgeon)
Behavioral Health Director:
Bertha Martínez PA-C; wound closure
Anesthesia:
10 cc 2% lidocaine local
Complications:
None
Condition:
Stable/guarded
BEDSIDE PROCEDURE NOTE IN GREATER DETAIL:
On 09/19/2025, Mr. Hackett continued to progress well status post his coronary artery bypass grafting x 4 and planned placement of Impella 5.5 LVAD via central aortic cannulation on 09/17/2025. An echocardiogram this morning demonstrated improved LV
function with the Impella device weaned. It was determined that he was safe for bedside removal of the Impella device. Informed consent was obtained. The patient was prepped and draped in standard sterile fashion with chlorhexidine scrub and
solution. Additional Betadine prep was placed on the Hemashield graft. The patient had already receiving periprocedural antibiotics and will be given an additional dose. A timeout was performed and agreed upon by all present.
The hemashield graft exit site was then infiltrated with approximately 10 cc of 2% lidocaine. The graft was controlled with a hemostat. The sutures were cut. The Impella device was turned off and gently withdrawn from the Hemashield graft without
incident. The graft was digitally controlled and back-bled. It was then controlled with 3 large surgical clips and a proximal silk tie. The previously exteriorized portion of the graft had been transected. Once controlled, the graft was
positioned below the musculature/adipose. The graft exit site was closed in 2 layers with 3-0 and a 4-0 Vicryl suture. The patient tolerated this procedure extremely well. His hemodynamics remained stable throughout. Both Dr. Jones and myself
were present and scrubbed for all important aspects of this procedure. The physician sugar laboratory assistant noted above was responsible for her duties as noted above throughout this procedure.
Thank you.
Tray Resendez MD
[phone]
[2025-09-19] MEDS: NSS 500 IV (10:43)
[2025-09-19] MEDS: ANCEF 5 IV (10:43)
[2025-09-19] MEDS: LASIX 20 MG IV (10:43)
--- NOTE | 2025-09-19 11:45 | PTCARENOTE ---
Right leg incision with large amount of drainage under dressing. Dressing changed on bilateral leg incisions by CT Bertha LIM. Prior to getting OOB to chair BP 136/55 MAP 78. CO 5.64, CI 2.91, SVR 737. Pt assisted OOB to chair, tolerated well. BP
89/43 MAP 55. Levo gtt restarted.
--- NOTE | 2025-09-19 12:02 | CM ---
Reviewed chart. Met with and Mrs. Hackett to review discharge plans. He states he is feeling much better today. Will continue to follow for any discharge concerns Prior to admission he resides with his spouse in a 55 plus community. He has
been there for four years. His home is a one story home with a loft without any steps to enter. He has a first floor set-up. Prior to admission he was independent with ambulation and adls. He has a single point cane at home to use if needed. He
has a prescription plan and uses [facility]. His spouse will be home to assist in his care if needed. Will need to see his functional level to see if he will have any skilled care needs Medical work-up in progress. The discharge plan is to
return home with his spouse and a home visit by the Transitional Care Nurse versus some level of inpatient rehab. if indicated when medically stable.
[2025-09-19] MEDS: LEVOPHED 250 IV (12:08)
[2025-09-19] MEDS: FERRLECIT 110 MG IV (13:35)
--- NOTE | 2025-09-19 14:11 | PTCARENOTE ---
Addendum entered by Gopi Arnold RN 09/19/25 14:21:
Urine output remains poor, 10mL for the last hour. CT JADON, Randa, made aware.
Original Note:
Assisted pt back to bed. Pt very unsteady requiring 3 RN's to assist to stand and pivot. Pt back in bed, swan and [place] zerod. [place] BP 122/48 MAP 68, left BP cuff 85/58 MAP 66 and right BP cuff 86/50 MAP 62. Pt remains on Levo at 4mcg/min. PA
36/23, CVP 31. Wave form looks inaccurate, re-zerod lines and number remain unchanged. [place] remains at 40cm. CT JADON, Randa, made aware of the above. CO 6.72, CI 3.46, SVR 643.
--- NOTE | 2025-09-19 16:30 | PTCARENOTE ---
Reassessed [place], noted clamp on swan to keep locked into position clamped onto swan causing for inaccurate swan numbers. Currently BP 120/56 MAP 73. PA 27/13, CVP 11. CO 6.47, CI 3.34, SVR 667. Remains on Levo at 2mcg/min. Pt with increasing urine
output. Left pleural chest tube d/c'd per order.
--- NOTE | 2025-09-19 18:15 | W.PN.CARDCBS ---
Today's Communication / Plan
-
Wean inotropes/pressors as able
Eventual GDMT for HFrEF as BP allows
Impression / Plan
-
Primary logger all round: Dr. Paez of [facility] [place]
Assessment:
CAD
Status post LAD stents 2002, 2005, 2019
Triple-vessel coronary disease including in-stent restenosis of prior LAD stents by cath 08/21/25
Status post CABG x 4 and site to VAQSUEZ to LAD, composite VASQUEZ to RSVG to high diagonal sequential OM, AO to RSVG to RPDA, placement of direct aortic 5.5 Impella LVAD 09/17/2025
Ischemic cardiomyopathy, EF 15 to 20%
Chronic heart failure with reduced EF
Mild to moderate MR
Sick sinus syndrome
Hypertension
Hyperlipidemia
SYDNI
Polycythemia vera
CLL with chronic thrombocytopenia
Spinal stenosis
GERD
Depression/anxiety
ECHO 08/21/25: moderate concentric LVH, concentric remodeling with contraction dyssynchronous and EF 15 to 20%, mild to moderate MR, mild AR, mildly dilated ascending aorta
ECHO 09/18/25: LVEF 30-35%
Plan:
- Status post CABG x4: VASQUEZ to LAD, composite VASQUEZ to RSVG to high diagonal sequential OM, AO to RSVG to RPDA; placement of direct aortic 5.5 Impella LVAD 09/17/2025
- Impella removed 09/19 and was doing well following this, out of bed to chair with no cardiac complaints
- Dobutamine being weaned
- Filling pressures are reasonable based on invasive hemodynamics
- Currently in sinus rhythm on review of telemetry
- Agree with ASA/plavix, high intensity statin, BB and amiodarone post-op
- Currently on Entresto given reduced LVEF -would hold for hypotension
- With reduced LVEF 30-35% will need consideration for ICD 90 days post revascularization if LVEF does not improve
Discussed with family at bedside
Progress Note - Database Marketing Analyst
Subjective
Date of Service: September 19, 2025
Aurelio removed this AM. Seen after and he was resting comfortably OOB to chair, no cardiac complaints. Remains on dobutamine and norepi at the time of my evaluation.
Objective
Labs:
09/19/25 18:00
09/19/25 20:00
Labs
Hgb Cancelled 09/19/25 18:00
Hct Cancelled 09/19/25 18:00
Plt Count Cancelled 09/19/25 18:00
PT 18.9 Sec (11.4-14.6) H 09/19/25 04:21
INR 1.53 09/19/25 04:21
APTT 34.4 Sec (23.4-35.0) 09/17/25 13:10
Sodium Cancelled 09/19/25 20:00
Potassium Cancelled 09/19/25 20:00
BUN Cancelled 09/19/25 20:00
Creatinine Cancelled 09/19/25 20:00
Glucose Cancelled 09/19/25 20:00
Vital Signs and I&O:
Vital Signs
Temp Pulse Resp BP Pulse Ox
99.5 F 92 17 106/60 98
09/19/25 18:00 09/19/25 18:00 09/19/25 18:00 09/19/25 17:00 09/19/25 18:00
Vital Signs
Temp Pulse Resp BP Pulse Ox
99.5 F 92 17 106/60 98
09/19/25 18:00 09/19/25 18:00 09/19/25 18:00 09/19/25 17:00 09/19/25 18:00
Intake & Output
09/17/25 09/18/25 09/19/25 09/20/25
06:59 06:59 06:59 06:59
Intake Total 1100 / 1100 2031.8 / 2130.6 3714.3 / 3757.0 830.9 / 830.9
Output Total 875 / 875 1095 / 1125 1035 / 1055 615 / 615
Balance 225 / 225 936.8 / 1005.6 2679.3 / 2702.0 215.9 / 215.9
[2025-09-19] MEDS: ENTRESTO 24 MG/26 MG PO (19:55)
--- NOTE | 2025-09-19 20:13 | PTCARENOTE ---
Patient received from RN @ 1900. Patient lying in bed w/ call streeter in reach. Patient denies any pain. AOx3. SR w/ PVC's on monitor. BP 113/54 HR 84. Heart sounds audible. A/V wires set to A- 30/12/0.5 V-30/10/0.8. Radial and pedal pulses
present. Trace generalized edema noted. POX 96% 6L NC. IS encouraged. Occasional strong productive cough noted. 2x mediastinal CT set to -20 suction draining red fluid. No crepitus, tidaling, or air leaks noted. Tolerating oral intake. Kee
draining tk yellow urine. Sternal Incision well approximated HANGERSMITH. Right and left knee incision Aquacel w/ moderate old drainage outlined w/ marker. RIJ cordroly w/ omar @ 40 PAP 28/17 CVP 12 CI 2.94. Left radial A line patent and intact. Al
lines leveled and zeroed. PIV patent and intact. See worklist for more details.
[2025-09-19 20:14] LABS: B.E. -1.2 mmol/L; HCO3 23.6 mmol/L (21-28); O2 Saturation % 99.8 % (94-98); PCO2 39 mmHg (35-48); PO2 86 mmHg (83-108); Potassium 3.9 mMOL/L (3.5-5.1)
[2025-09-19 20:17] LABS: Hematocrit 28.4 % (39.0-52.0); Hemoglobin 8.9 g/dL (13.0-18.0); Mean Corp Hgb Conc. 31.3 g/dL (33.0-37.0); Mean Corpuscular Volume 95.3 fL (80.0-94.0); Platelet Count 74 10^3/uL (130-400); Red Cell Dist. Width 14.4 % (11.5-14.5)
[2025-09-19 20:32] LABS: Magnesium 2.3 mg/dl (1.6-2.3)
[2025-09-19 20:36] LABS: ALT (SGPT) 10 U/L (0-50); AST (SGOT) 35 U/L (17-59); Albumin 3.0 g/dl (3.5-5.0); Alkaline Phosphatase 49 U/L (38-126); Blood Urea Nitrogen 52 mg/dl (9-20); Calcium 8.1 mg/dl (8.4-10.2); Carbon Dioxide 25 mmol/L (22-30); Chloride 100 mmol/L (98-107); Estimated Creatinine Clearance 31 ml/min; Glucose 120 mg/dl (70-99); Potassium 3.9 mmol/L (3.5-5.1); Sodium 128 mmol/L (135-145); Total Protein 5.0 g/dl (6.3-8.2); eGFR 37.12
[2025-09-19] MEDS: LIPITOR 40 MG PO (21:28)
[2025-09-19] MEDS: PROSCAR 5 MG PO (21:28)
[2025-09-20] VITALS (31 sets, daily range): BP systolic 75–135; BP diastolic 41–77; PULSE 85–91; O2SAT 100
--- NOTE | 2025-09-20 00:40 | PTCARENOTE ---
Patient reassessed. SR w/ frequent PVC's and PAC's. BP 113/43 HR 77 POX 98% 5L NC. Dobut decreased to 3.[address] PA [place]sil[place].
[2025-09-20] MEDS: ANESTHETIC LOZENGE 1 LOZENGE PO ×2 (02:07→04:29)
--- NOTE | 2025-09-20 03:15 | W.PN.CT ---
Today's Communication / Plan
-
-pod #3
-no issues overnight
-Impella dcd on 09/19
-mVO2 71, nl LA 0.8. Per Dr Cartagena, started slow Dobut wean by 0.5 q 4 hrs
-CI 2.88, CO 5.59, SVR 672. drips: Dobut 3, Levo 2
-CT outputs: 2 meds 90/245 in 12/24 hrs
-follow Hg- 9.0 today (8.9 on 09/19)
-follow Cr - 1.8 today (1.8-1.9 on 09/19)
-follow platelets - 78K today (74K after getting 1 platelet on 09/19 for 61K count)
-wean off Dobut as weatii
Assessment / Plan
-
80 year old male with a history of MVCAD and ICM admitted for planned CABG x4 (VASQUEZ-LAD, RSVG-D2, RSVG-OM, RSVG-RPDA), possibly with Impella 5.5 support, and LAAE on 09/[address] Cartagena. Admitted pre-operatively for dobutamine assisted diuresis and
optimization prior to surgery
-s/p CABG x 4 (In situ VASQUEZ to LAD, Composite VASQUEZ to RSVG to High Diag seq OM, Ao to RSVG to RPDA); Placement of a direct aortic 5.5 Impella LVAD via 10 mm graft directly anastomosed to the ascending thoracic aorta by Dr Cartagena on 09/17/25, pod #3
-Bedside removal of Impella 5.5 with management of Hemashield graft by Dr. Resendez on 09/19/25
-intraop PASQUALE: His left ventricular ejection fraction preoperatively was 15% with global hypokinesis. He had a mild degree of mitral valve insufficiency. He was very hypertensive preoperatively. Following surgery his EF remained approximately 15
to 20% although his LV looked better decompressed with the 5.[address] flowing at P4. He had no new regional wall motion abnormalities and RV remained normal in both size and function. Of note his ascending thoracic aorta was a
little bit ectatic and somewhat friable. Multiple repair sutures were placed at the base of the 10 mm graft as well as antegrade site with pledgeted sutures.
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
-Severe ICM with LVEF of 15% and global hypokinesis
-SYDNI
-HFrEF
-Cataracts
-TN
-Enlarged prostate
-HTN/HLD
-CLL with chronically elevated white count and depressed platelet count
-Enlarged prostate
-Thrombocytopenia preop
-Urinary retention
-hematuria preop
-acute postop blood loss anemia
-acute on chronic postop thrombocytopenia
-acute postop atelectasis/ pulmonary insufficiency
-acute postop hypovolemia with subsequent hypervolemia
-MONO
-acute postop hyponatremia
Discussed patient care with: Nursing and Care Team
Subjective
-
Date of Service: September 20, 2025
Objective Data
-
PT 18.9 Sec (11.4-14.6) H 09/19/25 04:21
INR 1.53 09/19/25 04:21
APTT 34.4 Sec (23.4-35.0) 09/17/25 13:10
Vital Signs
Vital Signs
Temp Pulse Resp BP Pulse Ox
99.3 F 82 19 87/62 98
09/20/25 02:58 09/20/25 03:00 09/20/25 03:00 09/20/25 03:00 09/20/25 02:[address]
CT Intake/Output/Weight
09/19/25 09/19/25 09/20/25
06:59 18:59 06:59
Intake Total 1257.2 / 3757.0 830.9 / 1214.8 383.9 / 1214.8
Output Total 480 / 1055 615 / 1030 415 / 1030
Balance 777.2 / 2702.0 215.9 / 184.8 -31.1 / 184.8
SaO2: 98
Physical Exam
-
General: Awake and AOx3
Cardiovascular: Regular rate & rhythm (PACs, PVCs), No Murmurs and No Rub
Respiratory: Decreased Breath Sounds
Sternum: Stable
Incision: Clean, Dry and Intact
Abdomen: soft, nontender, nondistended, + decreased bowel sounds
Extremities: No Edema
Data Reviewed
-
Lab Results: Results Reviewed
Medications: Active Meds Reviewed
Chest X-Ray: Report Reviewed and Image Reviewed
ECG: Report Reviewed and Image Reviewed
--- NOTE | 2025-09-20 04:33 | PTCARENOTE ---
Patient reassessed. SR/ PVC's. BP 112/44 HR 77 POX 97% 3L NC. Patient complaining of persistent cough and soar throat. Lozenge given per MARIANO Manley.
[2025-09-20 04:40] LABS: Hematocrit 27.1 % (39.0-52.0); Hemoglobin 9.0 g/dL (13.0-18.0); Mean Corp Hgb Conc. 33.2 g/dL (33.0-37.0); Mean Corpuscular Volume 91.6 fL (80.0-94.0); Platelet Count 78 10^3/uL (130-400); Red Cell Dist. Width 14.3 % (11.5-14.5)
[2025-09-20 04:45] LABS: INR 1.54; PT 19.0 Sec (11.4-14.6)
[2025-09-20 04:56] LABS: Alkaline Phosphatase 55 U/L (38-126); Blood Urea Nitrogen 52 mg/dl (9-20); Carbon Dioxide 25 mmol/L (22-30); Chloride 102 mmol/L (98-107); Estimated Creatinine Clearance 31 ml/min; Glucose 107 mg/dl (70-99); Potassium 3.9 mmol/L (3.5-5.1); Sodium 128 mmol/L (135-145); eGFR 37.12
[2025-09-20 04:57] LABS: ALT (SGPT) < 10 U/L (0-50); AST (SGOT) 31 U/L (17-59); Albumin 2.7 g/dl (3.5-5.0); Calcium 8.0 mg/dl (8.4-10.2); Magnesium 2.3 mg/dl (1.6-2.3); Total Protein 4.7 g/dl (6.3-8.2)
[2025-09-20] MEDS: TYLENOL 975 MG PO ×3 (06:17→21:42)
--- NOTE | 2025-09-20 07:31 | W.PN.INTV ---
Today's Communication / Plan
Recommendations
Impella discontinued
Wean oxygen
Increase activity
Wean dobutamine
Follow hemoglobin and platelet
Renal function stabilized
Assessment
-
80-year-old former smoking male who quit smoking in the 1980s who has CAD, hypertension, CLL, enlarged prostate with severe ischemic cardiomyopathy with preoperative EF 15% noted to have multivessel CAD with previous MIs and multiple stents
underwent CABG x 4 as well as Impella device implantation by Dr. Cartagena 09/17/2025 and entry level sales associate consulted for postoperative ventilator/critical care management 09/17/2025.
CAD-multivessel with severe ischemic cardiomyopathy-EF 15% on 08/21/2025 and improved to 40% on 09/16/2025 on dobutamine
Status post CABG x 4-VASQUEZ-LAD, composite VASQUEZ to RSVG to high diagonal sequential OM, AO to RSVG to RPDA, Impella placement, ventricular/atrial pacers temporary-Dr. Cartagena-09/17/2025
Mild hyperglycemia-blood sugar 118
Pulmonary nodule
Conditions present prior to admission:
CAD/MIs/stents.
Hypertension
? CLL.
BPH.
Cataract. Cholecystectomy. Carpal tunnel. Hernia repair.
Plan
Respiratory status stable
Continue supplemental oxygen-wean as tolerated
Incentive spirometry encouraged
Nebulizers if needed-currently not bronchospastic
Aspiration precautions
Pulmonary artery catheter parameters continue to be followed
Pressors/antihypertensive/inotropes/diuretics will be provided as needed
Impella device removed
Trial Entresto
Probably will need LifeVest versus ICD/PPM
Transesophageal echocardiogram 09/17/2025-EF 15-20%, mild mitral regurgitation
Amiodarone drip continues
Cardiology following
Monitor chest tube output
Monitor hemoglobin
Monitor platelets-61 on 09/19/25 and 78 on 09/20/2025
Monitor platelet count and coags
Transfuse blood product if needed
CT surgery following chest tubes
Serum creatinine trending up-now stable at 1.8
Monitor blood sugar
Insulin supplementation as needed
Aspiration precautions
VAP prevention protocol
DVT prophylaxis
Early nutrition
Early mobilization
Outpatient pulmonary follow-up with repeat CT chest in 12 months with incidental 4 mm right lower lobe nodule found 09/10/2025
Critical care statement: A total of 34 minutes of critical care time was provided for this patient today. This includes management of ventilator, spontaneous breathing trial, arterial blood gases, pressors, of unstable vital signs, evaluation of the
patient at bedside, reviewing the patient's pertinent medical records including radiographs, microbiology, laboratory evaluations, and discussion with primary team and critical care nursing.
Diagnostic data:
CT angiography 09/10/2025-ascending thoracic aorta 3.6 cm, 4 mm lung nodule right lower lobe
Echocardiogram 09/16/2025-EF 40%, trace mitral regurgitation
Subjective Dataa
Subjective Data
Date of Service:
Date of Service: September 20, 2025
Chief Complaint: Pool Hall Inspector Follow Up, Pulmonary Follow Up and Vent Management Follow Up
Subjective:
Feels better, out of bed, Impella removed, no shortness of breath, chest pain
Review of Systems
General: Other (Per HPI)
Objective Data
Data Reviewed
Vital Signs / I&O / Oxygen:
Vital Signs
Temp Pulse Resp BP Pulse Ox
100.1 F 80 28 75/47 94
09/20/25 06:54 09/20/25 07:00 09/20/25 07:00 09/20/25 07:00 09/20/25 07:00
Intake and Output
09/19/25 09/20/25 09/21/25
06:59 06:59 06:59
Intake Total 3714.3 / 3757.0 1347.5 / 1378.6 31.1 / 31.1
Output Total 1035 / 1055 1175 / 1225 50 / 50
Balance 2679.3 / 2702.0 172.5 / 153.6 -18.9 / -18.9
SaO2 [SIMV] 94
SaO2 94
Nasal Cannula flow liters per 4
minute
Physical Exam
General: Respiratory Distress (n) and Comfortable
HEENT: Normocephalic, Anicteric and Moist Mucous Membranes
Cardiovascular: Regular Rhythm and Murmur
Respiratory: Wheeze (n), Crackles (Basilar), Rhonchi (n), Non-Labored Respirations, Accessory Resp Muscle Use (n), Stridor (n) and Chest Tube
GI: Soft, Non Distended and Non Tender
Neurology: Awake, Alert and No Motor Deficits
Skin: Warm, Good Color, Cyanosis (n), Jaundice (n) and Rash (n)
Labs/Micro/Reports
Lab Data
09/20/25 04:05
09/20/25 04:05
Laboratory Results
09/19/25 09/19/25 09/19/25
07:45 12:00 16:00
PT
INR
pH 7.33 L Cancelled Cancelled
pCO2 42 Cancelled Cancelled
pO2 76 L Cancelled Cancelled
HCO3 22.1 Cancelled Cancelled
O2 Delivery Level Cancelled Cancelled
09/19/25 09/19/25 09/20/25
20:00 20:03 04:05
PT 19.0 H
INR 1.54
pH Cancelled 7.39
pCO2 Cancelled 39
pO2 Cancelled 86
HCO3 Cancelled 23.6
O2 Delivery Level Cancelled
Microbiology
09/16/25 05:27 Urine Urine Culture - Final
NO GROWTH
--- NOTE | 2025-09-20 08:15 | PTCARENOTE ---
Assumed care of patient at 0700. Pt is awake, alert, and oriented. No complaints of pain at this time. Pt remains SR with HR 86. BP 100/45 MAP 60. PA 31/14, CVP 10, CO 5.43, CI 2.80, SVR 736. Epicardial AV wires in place. Pulse oximetry 95% on 4L
nasal cannula. Mediastinal chest tubes in place to -20 suction, no sign of air leak or crepitus. Pt tolerating PO diet. Kee catheter remains in place, Kee care completed. Midsternal incision approximated and SECOND HAND. Right leg incision with large
amount of drainage under the post-surgical dressing. CT JADON, Randa, made aware. Dressing changed. Left leg incision with post-surgical dressing in place. Right IJ cordis in place with [place] at 40cm. Currently on Dobutamine 3mcg/kg/min and Levo
4mcg/min.
[2025-09-20] MEDS: LOW STRENGTH ASPIRIN 81 MG PO (08:54)
[2025-09-20] MEDS: ENTRESTO 24 MG/26 MG 1 TAB PO (08:55)
[2025-09-20] MEDS: PLAVIX 75 MG PO (08:55)
[2025-09-20] MEDS: MUCINEX 1200 MG PO ×2 (08:55→20:43)
[2025-09-20] MEDS: BACTROBAN 2% OINTMENT 1 APPLIC NASAL ×2 (08:55→20:44)
[2025-09-20] MEDS: SENOKOT 8.6 MG PO ×2 (08:55→20:43)
[2025-09-20] MEDS: MAGNESIUM OXIDE 400 MG PO (08:55)
[2025-09-20] MEDS: THERAGRAN 1 TABLET PO (08:55)
[2025-09-20] MEDS: NEURONTIN 100 MG PO ×3 (08:55→21:42)
[2025-09-20] MEDS: PACERONE 200 MG PO ×3 (08:55→21:42)
[2025-09-20] MEDS: VITAMIN D3 (cholecalciferol) 50 MCG PO (08:55)
[2025-09-20] MEDS: PROTONIX 40 MG PO (08:55)
[2025-09-20] MEDS: LEVOPHED 250 IV (10:54)
[2025-09-20] MEDS: DOBUTREX 250 IV (11:27)
[2025-09-20] MEDS: NSS IV (11:44)
--- NOTE | 2025-09-20 11:45 | PTCARENOTE ---
Assisted pt back to bed, right leg with large amounts of drainage. CT JADON, Randa, to bedside. Dressing changed again surgicel placed under dressing. Mediastinal chest tubes d/c'd per order. Pt remains on Dobutamine and Levo.
[2025-09-20] MEDS: FERRLECIT 110 MG IV (14:09)
--- NOTE | 2025-09-20 14:12 | CM ---
Reviewed chart. Met with and Mrs. Hackett to review discharge plans. He states he is feeling better. Await physical and occupational therapy to see if he will have any skilled care needs. We reviewed the Transitional Care Nurse meggan visit. He
is agreeable to a home visit. If he needs VNA services after the Transitional Care Nurse they have selected [facility]. plan. Will continue to follow for any discharge concerns Prior to admission he resides with his spouse in a 55
plus community. He has been there for four years. His home is a one story home with a loft without any steps to enter. He has a first floor set-up. Prior to admission he was independent with ambulation and adls. He has a single point cane at
home to use if needed. He has a prescription plan and uses [facility]. His spouse will be home to assist in his care if needed. Will need to see his functional level to see if he will have any skilled care needs Medical work-up in progress.
The discharge plan is to return home with his spouse and a home visit by the Transitional Care Nurse versus some level of inpatient rehab. if indicated when medically stable.
--- NOTE | 2025-09-20 16:45 | PTCARENOTE ---
Pt OOB to chair. Requesting to get back into bed after a short time OOB. Encouraged pt to remain OOB for a longer period of time, education provided on benefits of being OOB. Pt worked with PT/OT, tolerated well. Pt remains SR with HR 70's. BP
115/48 MAP 64. PA 29/16, CVP 22. Pulse oximetry 96% on 2L nasal cannula. Pt currently on Dobutamine 2mcg/kg/min and Levo 6mcg/min.
--- NOTE | 2025-09-20 17:09 | W.PN.CARDCBS ---
Today's Communication / Plan
-
RECOMMENDATIONS:
-Weaning pressors as tolerated
-incentive spirometer encouraged
-Increase mobilization: hopefully start de-lining in the next few days
-Would follow platelets
Impression / Plan
-
Primary mail delivery supervisor: Dr. Paez of [facility] [place]
Assessment:
CAD
Status post LAD stents 2002, 2005, 2019
Triple-vessel coronary disease including in-stent restenosis of prior LAD stents by cath 08/21/25
Status post CABG x 4 and site to VASQUEZ to LAD, composite VASQUEZ to RSVG to high diagonal sequential OM, AO to RSVG to RPDA, placement of direct aortic 5.5 Impella LVAD 09/17/2025
Ischemic cardiomyopathy, EF 15 to 20%
Chronic heart failure with reduced EF
Mild to moderate MR
Sick sinus syndrome
Hypertension
Hyperlipidemia
SDYNI
Polycythemia vera
CLL with chronic thrombocytopenia
Spinal stenosis
GERD
Depression/anxiety
ECHO 08/21/25: moderate concentric LVH, concentric remodeling with contraction dyssynchronous and EF 15 to 20%, mild to moderate MR, mild AR, mildly dilated ascending aorta
ECHO 09/18/25: LVEF 30-35%
Plan:
- Status post CABG x4: VASQUEZ to LAD, composite VASQUEZ to RSVG to high diagonal sequential OM, AO to RSVG to RPDA; placement of direct aortic 5.5 Impella LVAD 09/17/2025
- Impella removed 09/19 and is doing well
- Dobutamine being weaned
- Filling pressures are reasonable based on invasive hemodynamics with RA: 16, PAD 10, CO/CI: 5.9 / 3.0
- Currently in sinus rhythm on review of telemetry
- Agree with ASA/Plavix, high intensity statin, BB and amiodarone post-op
- Currently on Entresto given reduced LVEF - Currently on hold
- With reduced LVEF 30-35% will need consideration for ICD 90 days post revascularization if LVEF does not improve
Discussed with family at bedside
Progress Note - Intermediate Manager
Subjective
Date of Service: September 20, 2025
No complaints
Objective
Labs:
09/20/25 04:05
09/20/25 04:05
Labs
Hgb 9.0 g/dL (13.0-18.0) L 09/20/25 04:05
Hct 27.1 % (39.0-52.0) L 09/20/25 04:05
Plt Count 78 10^3/uL (130-400) L 09/20/25 04:05
PT 19.0 Sec (11.4-14.6) H 09/20/25 04:05
INR 1.54 09/20/25 04:05
APTT 34.4 Sec (23.4-35.0) 09/17/25 13:10
Sodium 128 mmol/L (135-145) L 09/20/25 04:05
Potassium 3.9 mmol/L (3.5-5.1) 09/20/25 04:05
BUN 52 mg/dl (9-20) H 09/20/25 04:05
Creatinine 1.8 mg/dL (0.7-1.3) H 09/20/25 04:05
Glucose 107 mg/dl (70-99) H 09/20/25 04:05
Vital Signs and I&O:
Vital Signs
Temp Pulse Resp BP Pulse Ox
99.4 F 82 22 83/42 98
09/20/25 16:00 09/20/25 16:00 09/20/25 16:00 09/20/25 13:00 09/20/25 16:00
Vital Signs
Temp Pulse Resp BP Pulse Ox
99.4 F 82 22 83/42 98
09/20/25 16:00 09/20/25 16:00 09/20/25 16:00 09/20/25 13:00 09/20/25 16:00
Intake & Output
09/17/25 09/18/25 09/19/25 09/20/25
23:59 23:59 23:59 23:59
Intake Total 1304.9 / 1407.2 3722.3 / 3870.0 1772.5 / 1804.8 813.7 / 813.7
Output Total 1250 / 1290 1050 / 1085 1140 / 1200 685 / 685
Balance 54.9 / 117.2 2672.3 / 2785.0 632.5 / 604.8 128.7 / 128.7
Physical Exam
Physical Exam
PE:
GEN: sitting in bed at 30-degrees. Awake and interactive. No complaints
HEENT:��NC/AT, sclera are anicteric
NECK: JVP difficult but PA catheter in place
LUNGS: Diminished bibasilar breath sounds.
CV: RRR with soft rub
EXT: No CCE
NEURO: No focal neurologic deficits��
--- NOTE | 2025-09-20 19:38 | PTCARENOTE ---
Patient received from RN @ 1900. Patient lying in bed w/ call streeter in reach. Patient denies any pain. AOx3. SR w/ occasional PVC's on monitor. BP 135/45 HR 73. Heart sounds audible. A/V wires set to A- 30/12/0.5 V-30/10/0.8. Radial and
pedal pulses present. Trace generalized edema noted. POX 96% 2L NC. IS encouraged. Lungs diminished in bases bilaterally. Occasional strong productive cough noted. Tolerating oral intake. Bowel sounds hypoactive. Kee draining clear yellow
urine. Sternal Incision well approximated NEETA. Right and left knee incision Aquacel dry and intact. Left knee Aquacel small old drainage noted and outlined in marker. RIJ cordis w/ swan @ 40 PAP 22/10 CVP 6 CI 3.06. Left radial A line patent
and intact. All lines leveled and zeroed. PIV patent and intact. See worklist for more details.
[2025-09-20] MEDS: CALCIUM GLUCONATE 130 MG IV (20:43)
[2025-09-20] MEDS: KCL 20 MEQ PO (20:43)
[2025-09-20] MEDS: PROSCAR 5 MG PO (21:42)
[2025-09-20] MEDS: LIPITOR 40 MG PO (21:42)
[2025-09-21] VITALS (28 sets, daily range): BP systolic 83–128; BP diastolic 38–71; PULSE 67; BMI 30.1
--- NOTE | 2025-09-21 00:03 | PTCARENOTE ---
Patient reassessed. Patient sleeping comfortably. SR on monitor BP 110/40 HR 70 POX 95% 2L NC.
[2025-09-21] MEDS: LEVOPHED 250 IV (04:32)
--- NOTE | 2025-09-21 05:00 | W.PN.CT ---
Addendum entered and electronically signed by Tray Reesndez MD 09/21/25 09:32:
I saw and examined the patient.
The PA's note was reviewed and I agree with the note.
Comment:
YOHAN [id number]:
POD#4 s/p CABG x 4, Impella 5.5; POD#2 s/p Impella remova
No major overnight events.� Dobutamine weaned to 1.� AVSS.� Sinus.� 2L.� GTTS: dobutamine 1, levophed 2.� No drains.� UO: 1000mL last 12 hours, +adler.� Creat 1.6 from 1.8.� Na 131.� Tolerating PO.� Neuro: intact, slept well.�
-��������� Wean levophed as tolerated for MAPs > 65
-��������� Midodrine 10 TID
-� ������� D/C adler � but continue to closely follow UO
-��������� Will plan dobutamine to 1 tomorrow, OFF on Tuesday
-��������� OOB/IS/ambulateWill need rehab on D/C
Original Note:
Today's Communication / Plan
-
Plan:
-No major issues overnight. Hemodynamically and neurologically intact
-Impella dcd on 09/19
-On Dobutamine @ 2 and Levophed @ 2 down from 5 overnight. Midodrine has been added
-Last CI 3.02
-BB on hold while on dobutamine with hypotension
-Eventual Entresto when BP and Creatinine permits
-Maintain adler while on dobutamine
-Monitor creatinine 1.6, down from 1.8; 0.9-1.2 preop
-Monitor platelets 99K, up from 78 yesterday. Received 1 {5pk} plt on 09/19
-Monitor hyponatremia, 131, up from 128
-Magnesium 2.6, placed mag oxide on hold
-Maintain temporary PW (will cut before d/c home)
-Encourage use of IS/OOB into chair
-Ambulate, PT-OT consult
Assessment / Plan
-
80 year old male with a history of MVCAD and ICM admitted for planned CABG x4 (VASQUEZ-LAD, RSVG-D2, RSVG-OM, RSVG-RPDA), possibly with Impella 5.5 support, and LAAE on 09/[address] Cartagena. Admitted pre-operatively for dobutamine assisted diuresis and
optimization prior to surgery
-s/p CABG x 4 (In situ VASQUEZ to LAD, Composite VASQUEZ to RSVG to High Diag seq OM, Ao to RSVG to RPDA); Placement of a direct aortic 5.5 Impella LVAD via 10 mm graft directly anastomosed to the ascending thoracic aorta by Dr Cartagena on 09/17/25, pod #4
-Bedside removal of Impella 5.5 with management of Hemashield graft by Dr. Resendez on 09/19/25
-intraop PASQUALE: His left ventricular ejection fraction preoperatively was 15% with global hypokinesis. He had a mild degree of mitral valve insufficiency. He was very hypertensive preoperatively. Following surgery his EF remained approximately 15
to 20% although his LV looked better decompressed with the 5.[address] flowing at P4. He had no new regional wall motion abnormalities and RV remained normal in both size and function. Of note his ascending thoracic aorta was a
little bit ectatic and somewhat friable. Multiple repair sutures were placed at the base of the 10 mm graft as well as antegrade site with pledgeted sutures.
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
-Severe ICM with LVEF of 15% and global hypokinesis
-SYDNI
-HFrEF
-Cataracts
-TN
-Enlarged prostate
-HTN/HLD
-CLL with chronically elevated white count and depressed platelet count
-Enlarged prostate
-Thrombocytopenia preop
-Urinary retention
-hematuria preop
-acute postop blood loss anemia
-acute on chronic postop thrombocytopenia
-acute postop atelectasis/ pulmonary insufficiency
-acute postop hypovolemia with subsequent hypervolemia
-MONO
-acute postop hyponatremia
Discussed patient care with: Cardiology, Nursing, Respiratory Therapy, Pharmacy and Care Team
Subjective
-
Date of Service: September 21, 2025
Pt c/o mild incisional pain, otherwise feels well
Objective Data
-
PT 19.0 Sec (11.4-14.6) H 09/20/25 04:05
INR 1.54 09/20/25 04:05
APTT 34.4 Sec (23.4-35.0) 09/17/25 13:10
Vital Signs
Vital Signs
Temp Pulse Resp BP Pulse Ox
98.7 F 70 22 91/51 97
09/21/25 04:00 09/21/25 04:24 09/21/25 04:24 09/21/25 04:00 09/21/25 04:24
CT Intake/Output/Weight
09/20/25 09/20/25 09/21/25
06:59 18:59 06:59
Intake Total 516.6 / 1378.6 639.6 / 1073.6 434.0 / 1073.6
Output Total 560 / 1225 445 / 1330 885 / 1330
Balance -43.4 / 153.6 194.6 / -256.4 -451.0 / -256.4
SaO2: 97 (2L)
Physical Exam
-
General: Awake, Oriented and AOx3
Cardiovascular: Regular rate & rhythm, No Murmurs, No Rub and No Gallop
Respiratory: Decreased Breath Sounds (at bases, otherwise clear)
Sternum: Stable
Incision: Clean, Dry, Intact and Dressing Intact
Extremities: Other (+trace edema)
Data Reviewed
-
Lab Results: Results Reviewed
Medications: Active Meds Reviewed
Chest X-Ray: Report Reviewed and Image Reviewed
ECG: Report Reviewed and Image Reviewed
[2025-09-21 05:12] LABS: INR 1.38; PT 17.2 Sec (11.4-14.6)
[2025-09-21 05:19] LABS: ALT (SGPT) 11 U/L (0-50); AST (SGOT) 33 U/L (17-59); Albumin 2.5 g/dl (3.5-5.0); Alkaline Phosphatase 60 U/L (38-126); Blood Urea Nitrogen 58 mg/dl (9-20); Calcium 8.4 mg/dl (8.4-10.2); Carbon Dioxide 23 mmol/L (22-30); Chloride 105 mmol/L (98-107); Estimated Creatinine Clearance 39 ml/min; Glucose 97 mg/dl (70-99); Hematocrit 26.5 % (39.0-52.0); Hemoglobin 9.0 g/dL (13.0-18.0); Magnesium 2.6 mg/dl (1.6-2.3); Mean Corp Hgb Conc. 34.0 g/dL (33.0-37.0); Mean Corpuscular Volume 91.7 fL (80.0-94.0); Platelet Count 99 10^3/uL (130-400); Potassium 4.0 mmol/L (3.5-5.1); Red Cell Dist. Width 14.3 % (11.5-14.5); Sodium 131 mmol/L (135-145); Total Protein 4.5 g/dl (6.3-8.2); eGFR 42.75
--- NOTE | 2025-09-21 05:22 | PTCARENOTE ---
Patient reassessed. SR on monitor. BP 115/41 HR 66 POX 97% 2L NC.
[2025-09-21] MEDS: TYLENOL 975 MG PO ×3 (06:07→21:08)
--- NOTE | 2025-09-21 07:43 | W.PN.INTV ---
Today's Communication / Plan
Recommendations
Wean FiO2
Dobutamine wean
Norepinephrine wean
Insulin as needed
Assessment
-
80-year-old former smoking male who quit smoking in the 1980s who has CAD, hypertension, CLL, enlarged prostate with severe ischemic cardiomyopathy with preoperative EF 15% noted to have multivessel CAD with previous MIs and multiple stents
underwent CABG x 4 as well as Impella device implantation by Dr. Cartagena 09/17/2025 and metal filer consulted for postoperative ventilator/critical care management 09/17/2025.
CAD-multivessel with severe ischemic cardiomyopathy-EF 15% on 08/21/2025 and improved to 40% on 09/16/2025 on dobutamine
Status post CABG x 4-VASQUEZ-LAD, composite VASQUEZ to RSVG to high diagonal sequential OM, AO to RSVG to RPDA, Impella placement, ventricular/atrial pacers temporary-Dr. Cartagena-09/17/2025
Mild hyperglycemia-blood sugar 118
Pulmonary nodule
Conditions present prior to admission:
CAD/MIs/stents.
Hypertension
? CLL.
BPH.
Cataract. Cholecystectomy. Carpal tunnel. Hernia repair.
Plan
Respiratory status remains stable
Continue supplemental oxygen-wean as tolerated
Incentive spirometry encouraged
Nebulizers if needed-currently not bronchospastic
Aspiration precautions
Pulmonary artery catheter parameters continue to be followed
Pressors/antihypertensive/inotropes/diuretics will be provided as needed
Impella device removed 09/20/2025
Trial Entresto
Probably will need LifeVest versus ICD/PPM
Transesophageal echocardiogram 09/17/2025-EF 15-20%, mild mitral regurgitation
Amiodarone drip continues
Cardiology following
Dobutamine continues-wean
Norepinephrine continues-wean
Monitor chest tube output
Monitor hemoglobin-stable at 9.0
Monitor platelets-61 on 09/19/25 and 78 on 09/20/2025 and 99 on 09/21/2025
Monitor platelet count and coags
Transfuse blood product if needed
CT surgery following chest tubes
Serum creatinine trending down-now 1.6
Monitor blood sugar
Insulin supplementation as needed
Aspiration precautions
VAP prevention protocol
DVT prophylaxis
Early nutrition
Early mobilization
Outpatient pulmonary follow-up with repeat CT chest in 12 months with incidental 4 mm right lower lobe nodule found 09/10/2025
Critical care statement: A total of 33 minutes of critical care time was provided for this patient today. This includes management of ventilator, spontaneous breathing trial, arterial blood gases, pressors, of unstable vital signs, evaluation of the
patient at bedside, reviewing the patient's pertinent medical records including radiographs, microbiology, laboratory evaluations, and discussion with primary team and critical care nursing.
Diagnostic data:
CT angiography 09/10/2025-ascending thoracic aorta 3.6 cm, 4 mm lung nodule right lower lobe
Echocardiogram 09/16/2025-EF 40%, trace mitral regurgitation
Subjective Dataa
Subjective Data
Date of Service:
Date of Service: September 21, 2025
Chief Complaint: Icer Air Conditioning Follow Up, Pulmonary Follow Up and Vent Management Follow Up
Subjective:
Feels better, less short of breath, out of bed, pain controlled, still on dobutamine and norepinephrine
Review of Systems
General: Other (Per HPI)
Objective Data
Data Reviewed
Vital Signs / I&O / Oxygen:
Vital Signs
Temp Pulse Resp BP Pulse Ox
98.7 F 72 18 128/58 96
09/21/25 06:00 09/21/25 07:15 09/21/25 07:00 09/21/25 06:00 09/21/25 07:35
Intake and Output
09/20/25 09/21/25 09/22/25
06:59 06:59 06:59
Intake Total 1347.5 / 1378.6 1133.4 / 1163.3 29.9 / 29.9
Output Total 1175 / 1225 1450 / 1450
Balance 172.5 / 153.6 -316.6 / -286.7 29.9 / 29.9
SaO2 [SIMV] 94
SaO2 96
Nasal Cannula flow liters per 2
minute
Physical Exam
General: Respiratory Distress (n) and Comfortable
HEENT: Normocephalic, Anicteric and Moist Mucous Membranes
Cardiovascular: Regular Rhythm and Murmur
Respiratory: Wheeze (n), Crackles (Basilar), Rhonchi (n), Non-Labored Respirations, Accessory Resp Muscle Use (n), Stridor (n) and Chest Tube
GI: Soft, Non Distended and Non Tender
Neurology: Awake, Alert and No Motor Deficits
Skin: Warm, Good Color, Cyanosis (n), Jaundice (n) and Rash (n)
Labs/Micro/Reports
Lab Data
09/21/25 04:40
09/21/25 04:40
Laboratory Results
09/21/25
04:40
PT 17.2 H
INR 1.38
[2025-09-21] MEDS: PACERONE 200 MG PO ×3 (08:26→21:08)
[2025-09-21] MEDS: PLAVIX 75 MG PO (08:27)
[2025-09-21] MEDS: NEURONTIN 100 MG PO ×2 (08:27→15:20)
[2025-09-21] MEDS: LOW STRENGTH ASPIRIN 81 MG PO (08:27)
[2025-09-21] MEDS: MUCINEX 1200 MG PO ×2 (08:27→21:08)
[2025-09-21] MEDS: THERAGRAN 1 TABLET PO (08:28)
[2025-09-21] MEDS: PROTONIX 40 MG PO (08:28)
[2025-09-21] MEDS: SENOKOT 8.6 MG PO (08:28)
[2025-09-21] MEDS: VITAMIN D3 (cholecalciferol) 50 MCG PO (08:28)
[2025-09-21] MEDS: BACTROBAN 2% OINTMENT 1 APPLIC NASAL (08:29)
--- NOTE | 2025-09-21 09:23 | PTCARENOTE ---
Pt AAOx4 pleasant sitting in chair no complaints of pain. Ate breakfast.
[2025-09-21] MEDS: BUMEX 1 MG IV (10:04)
[2025-09-21] MEDS: FLEXERIL 5 MG PO (11:09)
[2025-09-21] MEDS: TYLENOL 650 MG PO (11:10)
[2025-09-21] MEDS: NSS IV (11:28)
--- NOTE | 2025-09-21 15:04 | PTCARENOTE ---
Pt now off levo and [place] removed, pt worked with PT,
--- NOTE | 2025-09-21 16:04 | W.PN.CARDCBS ---
Today's Communication / Plan
-
-Dobutamine being weaned and hopefully off next 24 hrs
-Remains in sinus rhythm on amiodarone
-Cont with ASA/Plavix, high intensity statin, BB and amiodarone post-op
-Entresto held with hypotension. Continue midodrine for blood pressure support
-With reduced LVEF 30-35% will need consideration for ICD 90 days post revascularization if LVEF does not improve
- Continue gentle diuresis
Impression / Plan
-
Primary plant clerk: Dr. Paez of [facility] [place]
Impression:
CAD
Status post LAD stents 2002, 2005, 2019
Triple-vessel coronary disease including in-stent restenosis of prior LAD stents by cath 08/21/25
Status post CABG x 4 and site to VASQUEZ to LAD, composite VASQUEZ to RSVG to high diagonal sequential OM, AO to RSVG to RPDA, placement of direct aortic 5.5 Impella LVAD 09/17/2025
Ischemic cardiomyopathy, EF 15-20 to now 30-35%
Chronic heart failure with reduced EF
Mild to moderate MR
Sick sinus syndrome
Hypertension
Hyperlipidemia
SYDNI
Polycythemia vera
CLL with chronic thrombocytopenia
Spinal stenosis
GERD
Depression/anxiety
ECHO 08/21/25: moderate concentric LVH, concentric remodeling with contraction dyssynchronous and EF 15 to 20%, mild to moderate MR, mild AR, mildly dilated ascending aorta
ECHO 09/18/25: LVEF 30-35%
Plan:
-Status post CABG x4: VASQUEZ to LAD, composite VASQUEZ to RSVG to high diagonal sequential OM, AO to RSVG to RPDA; placement of direct aortic 5.5 Impella LVAD 09/17/2025
-Impella removed 09/19 and continues to improve
-Dobutamine being weaned and hopefully off next 24 hrs
-Remains in sinus rhythm on amiodarone
-Cont with ASA/Plavix, high intensity statin, BB and amiodarone post-op
-Entresto held with hypotension. Continue midodrine for blood pressure support
-With reduced LVEF 30-35% will need consideration for ICD 90 days post revascularization if LVEF does not improve
- Continue gentle diuresis
Discussed with nursing
Progress Note - Network Technology Instructor
Subjective
Date of Service: September 21, 2025
Patient seen and examined. No shortness of breath
Objective
Labs:
09/21/25 04:40
09/21/25 04:40
Labs
Hgb 9.0 g/dL (13.0-18.0) L 09/21/25 04:40
Hct 26.5 % (39.0-52.0) L 09/21/25 04:40
Plt Count 99 10^3/uL (130-400) L D 09/21/25 04:40
PT 17.2 Sec (11.4-14.6) H 09/21/25 04:40
INR 1.38 09/21/25 04:40
APTT 34.4 Sec (23.4-35.0) 09/17/25 13:10
Sodium 131 mmol/L (135-145) L 09/21/25 04:40
Potassium 4.0 mmol/L (3.5-5.1) 09/21/25 04:40
BUN 58 mg/dl (9-20) H 09/21/25 04:40
Creatinine 1.6 mg/dL (0.7-1.3) H 09/21/25 04:40
Glucose 97 mg/dl (70-99) 09/21/25 04:40
Vital Signs and I&O:
Vital Signs
Temp Pulse Resp BP Pulse Ox
98.7 F 69 22 92/49 94
09/21/25 06:00 09/21/25 15:20 09/21/25 15:00 09/21/25 15:20 09/21/25 15:00
Vital Signs
Temp Pulse Resp BP Pulse Ox
98.7 F 69 22 92/49 94
09/21/25 06:00 09/21/25 15:20 09/21/25 15:00 09/21/25 15:20 09/21/25 15:00
Intake & Output
09/19/25 09/20/25 09/21/25 09/22/25
06:59 06:59 06:59 06:59
Intake Total 3714.3 / 3757.0 1347.5 / 1378.6 1133.4 / 1163.3 202.0 / 202.0
Output Total 1035 / 1055 1175 / 1225 1450 / 1450 800 / 800
Balance 2679.3 / 2702.0 172.5 / 153.6 -316.6 / -286.7 -598.0 / -598.0
Physical Exam
Physical Exam
General: No acute distress, AAOX3
Neck: Negative JVD
Heart: Regular, Negative S3 positive S1/S2, Negative S4, No murmur
Lungs: CTA b/l, negative wheezes/rales/rhonchi
Abd: Positive BS, NT/ND, neg rebound/rigidity/guarding
Ext: Negative cyanosis/clubbing/edema
Neuro: nonfocal
--- NOTE | 2025-09-21 17:26 | PTCARENOTE ---
Pt stable no new assessments at this time, Pt x1 large BM
--- NOTE | 2025-09-21 20:00 | PTCARENOTE ---
assumed care of pt from previous RN. pt A&Ox4, resting in bed at time of assessment. SR on tele-monitor. temp epicardial A/V wires w/ backup settings DDI 30/12/10/0.5/0.8. POX 95% on RA. abd s/n, +BS. adler catheter draining yellow colored urine w/
sediment. R IJ cordis w/ swan floated to 40 cm. PIV intact. see worklist for complete nursing assessment, interventions, VS, and I&Os.
[2025-09-21] MEDS: PROSCAR 5 MG PO (21:08)
[2025-09-21] MEDS: LIPITOR 40 MG PO (21:08)
[2025-09-21] MEDS: SENOKOT PO (21:08)
[2025-09-21] MEDS: KCL 20 MEQ PO (22:57)
[2025-09-22] VITALS (14 sets, daily range): BP systolic 108–150; BP diastolic 54–114; BMI 30.3
--- NOTE | 2025-09-22 | PTCARENOTE ---
assessment remains unchanged. VSS.
--- NOTE | 2025-09-22 00:13 | W.PN.CT ---
Addendum entered and electronically signed by Tray Resendez MD 09/22/25 10:05:
CORRECTION: Pt. DID NOT have hematuria. Adler to be removed today
Addendum entered and electronically signed by Tray Resendez MD 09/22/25 09:22:
I saw and examined the patient.
The PA's note was reviewed and I agree with the note.
Comment:
POD#5
No issues overnight. Dobutamine OFF this AM (MvO2 71.7 overnight). Creat down to 1.5
- Kept adler yesterday secondary to minor hematuria - >1000mL overnight, urine clearing - will D/C adler today
- De-line later today
- Diuresis
- OOB/IS/ambulate
- Rehab on D/C
Original Note:
Today's Communication / Plan
-
Plan:
-No major issues overnight. Hemodynamically and neurologically intact
-Impella dcd on 09/19
-On Dobutamine @ 1. Off Levophed. Midodrine has been added
-Last CI 2.78, MVO2 71.1%
-BB on hold while on dobutamine with hypotension
-Eventual Entresto when BP and Creatinine permits
-Wean off Dobutamine as tolerated
-D/C swan once off Dobutamine gtt
-D/C adler once off Dobutamine gtt
-Will transition to tele phase once of Dobutamine
-Maintain cordis another day for medications and phlebotomy
-Monitor creatinine 1.5, down from 1.6; 0.9-1.2 preop
-Monitor platelets 123K, up from 99K yesterday. Received 1 {5pk} plt on 09/19
-Monitor hyponatremia, 130, was 131 yesterday
-Magnesium 2.5, mag oxide on hold
-Maintain temporary PW (will cut before d/c home)
-Encourage use of IS/OOB into chair
-Ambulate, PT-OT following and recommend SNF
Assessment / Plan
-
80 year old male with a history of MVCAD and ICM admitted for planned CABG x4 (VASQUEZ-LAD, RSVG-D2, RSVG-OM, RSVG-RPDA), possibly with Impella 5.5 support, and LAAE on 09/[address] Cartagena. Admitted pre-operatively for dobutamine assisted diuresis and
optimization prior to surgery
-s/p CABG x 4 (In situ VASQUEZ to LAD, Composite VASQUEZ to RSVG to High Diag seq OM, Ao to RSVG to RPDA); Placement of a direct aortic 5.5 Impella LVAD via 10 mm graft directly anastomosed to the ascending thoracic aorta by Dr Cartagena on 09/17/25, pod #5
-Bedside removal of Impella 5.5 with management of Hemashield graft by Dr. Resendez on 09/19/25
-intraop PASQUALE: His left ventricular ejection fraction preoperatively was 15% with global hypokinesis. He had a mild degree of mitral valve insufficiency. He was very hypertensive preoperatively. Following surgery his EF remained approximately 15
to 20% although his LV looked better decompressed with the 5.[address] flowing at P4. He had no new regional wall motion abnormalities and RV remained normal in both size and function. Of note his ascending thoracic aorta was a
little bit ectatic and somewhat friable. Multiple repair sutures were placed at the base of the 10 mm graft as well as antegrade site with pledgeted sutures.
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
-Severe ICM with LVEF of 15% and global hypokinesis
-SYDNI
-HFrEF
-Cataracts
-TN
-Enlarged prostate
-HTN/HLD
-CLL with chronically elevated white count and depressed platelet count
-Enlarged prostate
-Thrombocytopenia preop
-Urinary retention
-hematuria preop
-acute postop blood loss anemia
-acute on chronic postop thrombocytopenia
-acute postop atelectasis/ pulmonary insufficiency
-acute postop hypovolemia with subsequent hypervolemia
-MONO
-acute postop hyponatremia
Discussed patient care with: Cardiology, Nursing, Respiratory Therapy, Pharmacy and Care Team
Subjective
-
Date of Service: September 22, 2025
Pt c/o mild incisional pain, otherwise feels well
Objective Data
-
PT 17.2 Sec (11.4-14.6) H 09/21/25 04:40
INR 1.38 09/21/25 04:40
APTT 34.4 Sec (23.4-35.0) 09/17/25 13:10
Vital Signs
Vital Signs
Temp Pulse Resp BP Pulse Ox
98.2 F 67 21 115/56 95
09/21/25 23:00 09/21/25 23:00 09/21/25 23:00 09/21/25 23:00 09/21/25 23:54
CT Intake/Output/Weight
09/21/25 09/21/25 09/22/25
06:59 18:59 06:59
Intake Total 493.8 / 1163.3 1055.6 / 1141.6 86.0 / 1141.6
Output Total 1005 / 1450 925 / 1405 480 / 1405
Balance -511.2 / -286.7 130.6 / -263.4 -394.0 / -263.4
SaO2: 95 (RA)
Physical Exam
-
General: Awake, Oriented and AOx3
Cardiovascular: Regular rate & rhythm, No Murmurs, No Rub and No Gallop
Respiratory: Decreased Breath Sounds (at bases, otherwise clear)
Sternum: Stable
Incision: Clean, Dry, Intact and Dressing Intact
Extremities: Other (+trace edema)
Data Reviewed
-
Lab Results: Results Reviewed
Medications: Active Meds Reviewed
Chest X-Ray: Report Reviewed and Image Reviewed
ECG: Report Reviewed and Image Reviewed
[2025-09-22] MEDS: ROXICODONE 5 MG PO (01:03)
[2025-09-22 05:42] LABS: Hematocrit 26.9 % (39.0-52.0); Hemoglobin 9.0 g/dL (13.0-18.0); Mean Corp Hgb Conc. 33.5 g/dL (33.0-37.0); Mean Corpuscular Volume 90.3 fL (80.0-94.0); Platelet Count 123 10^3/uL (130-400); Red Cell Dist. Width 14.6 % (11.5-14.5)
[2025-09-22 05:52] LABS: ALT (SGPT) 16 U/L (0-50); AST (SGOT) 37 U/L (17-59); Albumin 2.5 g/dl (3.5-5.0); Alkaline Phosphatase 84 U/L (38-126); Blood Urea Nitrogen 54 mg/dl (9-20); Calcium 8.2 mg/dl (8.4-10.2); Carbon Dioxide 25 mmol/L (22-30); Chloride 106 mmol/L (98-107); Estimated Creatinine Clearance 41 ml/min; Glucose 88 mg/dl (70-99); Magnesium 2.5 mg/dl (1.6-2.3); Potassium 3.8 mmol/L (3.5-5.1); Sodium 130 mmol/L (135-145); Total Protein 4.5 g/dl (6.3-8.2); eGFR 46.19
--- NOTE | 2025-09-22 07:26 | W.PN.INTV ---
Today's Communication / Plan
Recommendations
Wean oxygen
Increase activity
Gentle diuresis
Wean dobutamine off
Likely deline and transfer to telemetry-[employer] set up technician will sign off
Assessment
-
80-year-old former smoking male who quit smoking in the 1980s who has CAD, hypertension, CLL, enlarged prostate with severe ischemic cardiomyopathy with preoperative EF 15% noted to have multivessel CAD with previous MIs and multiple stents
underwent CABG x 4 as well as Impella device implantation by Dr. Cartagena 09/17/2025 and spring manufacturing set up technician consulted for postoperative ventilator/critical care management 09/17/2025.
CAD-multivessel with severe ischemic cardiomyopathy-EF 15% on 08/21/2025 and improved to 40% on 09/16/2025 on dobutamine
Status post CABG x 4-VASQUEZ-LAD, composite VASQUEZ to RSVG to high diagonal sequential OM, AO to RSVG to RPDA, Impella placement, ventricular/atrial pacers temporary-Dr. Cartagena-09/17/2025
Mild hyperglycemia-blood sugar 118
Pulmonary nodule
Conditions present prior to admission:
CAD/MIs/stents.
Hypertension
? CLL.
BPH.
Cataract. Cholecystectomy. Carpal tunnel. Hernia repair.
Plan
Respiratory status remains stable
Continue supplemental oxygen-wean as tolerated
Incentive spirometry encouraged
Nebulizers if needed-currently not bronchospastic
Aspiration precautions
Pulmonary artery catheter parameters continue to be followed
Pressors/antihypertensive/inotropes/diuretics will be provided as needed
Impella device removed 09/20/2025
Trial Entresto
Probably will need LifeVest versus ICD/PPM
Transesophageal echocardiogram 09/17/2025-EF 15-20%, mild mitral regurgitation
Amiodarone drip continues
Cardiology following
Dobutamine continues-wean
Norepinephrine continues-wean
Diuresis as tolerated
Monitor renal function, electrolytes, intake/output, lower extremity edema and weight
Replace electrolytes as needed
Removing chest tubes
Monitor hemoglobin-stable at 9.0
Monitor platelets-61 on 09/19/25 and 78 on 09/20/2025 and 99 on 09/21/2025 and 123 on 09/22/2025
Monitor platelet count and coags
Transfuse blood product if needed
Serum creatinine trending down-now 1.5
Monitor blood sugar
Insulin supplementation as needed
Aspiration precautions
VAP prevention protocol
DVT prophylaxis
Nutrition
PT/OT-eventual discharge to rehab
Patient likely transferred to telemetry after dobutamine off-[employer] set up technician will sign off
Outpatient pulmonary follow-up with repeat CT chest in 12 months with incidental 4 mm right lower lobe nodule found 09/10/2025
Reviewed the patient's pertinent medical records including radiographs, microbiology, laboratory evaluations, and discussion with primary team and critical care nursing.
Diagnostic data:
CT angiography 09/10/2025-ascending thoracic aorta 3.6 cm, 4 mm lung nodule right lower lobe
Echocardiogram 09/16/2025-EF 40%, trace mitral regurgitation
Subjective Dataa
Subjective Data
Date of Service:
Date of Service: September 22, 2025
Chief Complaint: Senior Regulatory Affairs Specialist Follow Up, Pulmonary Follow Up and Vent Management Follow Up
Subjective:
Feels better, out of bed, no chest pain or abdominal pain
Review of Systems
General: Other (Per HPI )
Objective Data
Data Reviewed
Vital Signs / I&O / Oxygen:
Vital Signs
Temp Pulse Resp BP Pulse Ox
99 F 73 25 126/61 94
09/22/25 06:00 09/22/25 07:00 09/22/25 07:00 09/22/25 06:00 09/22/25 07:00
Intake and Output
09/21/25 09/22/25 09/23/25
06:59 06:59 06:59
Intake Total 1133.4 / 1163.3 1280.0 / 1280.0
Output Total 1450 / 1450 1929 / 1929
Balance -316.6 / -286.7 -650.0 / -650.0
SaO2 [SIMV] 94
SaO2 94
Nasal Cannula flow liters per 2
minute
Physical Exam
General: Respiratory Distress (n) and Comfortable
HEENT: Normocephalic, Anicteric and Moist Mucous Membranes
Cardiovascular: Regular Rhythm and Murmur
Respiratory: Wheeze (n), Crackles (Basilar), Rhonchi (n), Non-Labored Respirations, Accessory Resp Muscle Use (n), Stridor (n) and Chest Tube
GI: Soft, Non Distended and Non Tender
Neurology: Awake, Alert and No Motor Deficits
Skin: Warm, Good Color, Cyanosis (n), Jaundice (n) and Rash (n)
Labs/Micro/Reports
Lab Data
09/22/25 05:08
09/22/25 05:08
[2025-09-22] MEDS: PROTONIX 40 MG PO (07:35)
[2025-09-22] MEDS: THERAGRAN 1 TABLET PO (07:35)
[2025-09-22] MEDS: TYLENOL 975 MG PO ×2 (07:35→22:22)
[2025-09-22] MEDS: PACERONE 200 MG PO ×3 (07:35→22:23)
[2025-09-22] MEDS: VITAMIN D3 (cholecalciferol) 50 MCG PO (07:35)
[2025-09-22] MEDS: LOW STRENGTH ASPIRIN 81 MG PO (07:35)
[2025-09-22] MEDS: PLAVIX 75 MG PO (07:35)
[2025-09-22] MEDS: MUCINEX 1200 MG PO ×2 (07:36→19:54)
[2025-09-22] MEDS: SENOKOT 8.6 MG PO (07:36)
--- NOTE | 2025-09-22 07:53 | W.PN.CARDCBS ---
Today's Communication / Plan
-
-Dobutamine being weaned off Sep 22
-Remains in sinus rhythm on amiodarone
-Cont with ASA/Plavix, high intensity statin, BB and amiodarone post-op
-GDMT limited by hypotension; Entresto held.
Continue midodrine for blood pressure support
-With reduced LVEF 30-35% will need consideration for ICD 90 days post revascularization if LVEF does not improve
-Continue gentle diuresis
Impression / Plan
-
.
Primary spool sander: Dr. Paez of [facility] [place]
Impression:
CAD
Status post LAD stents 2002, 2005, 2019
Triple-vessel coronary disease including in-stent restenosis of prior LAD stents by cath 08/21/25
Status post CABG x 4 and site to VASQUEZ to LAD, composite VASQUEZ to RSVG to high diagonal sequential OM, AO to RSVG to RPDA, placement of direct aortic 5.5 Impella LVAD 09/17/2025
Ischemic cardiomyopathy, EF 15-20 to now 30-35%
Chronic heart failure with reduced EF
Mild to moderate MR
Sick sinus syndrome
Hypertension
Hyperlipidemia
SYDNI
Polycythemia vera
CLL with chronic thrombocytopenia
Spinal stenosis
GERD
Depression/anxiety
ECHO 08/21/25: moderate concentric LVH, concentric remodeling with contraction dyssynchronous and EF 15 to 20%, mild to moderate MR, mild AR, mildly dilated ascending aorta
ECHO 09/18/25: LVEF 30-35%
Plan:
-Status post CABG x4: VASQUEZ to LAD, composite VASQUEZ to RSVG to high diagonal sequential OM, AO to RSVG to RPDA; placement of direct aortic 5.5 Impella LVAD 09/17/2025
-Impella removed 09/19 and continues to improve
-Dobutamine being weaned off 09/22
-Remains in sinus rhythm on amiodarone
-Cont with ASA/Plavix, high intensity statin, BB and amiodarone post-op
-GDMT limited by hypotension; Entresto held.
Continue midodrine for blood pressure support
-With reduced LVEF 30-35% will need consideration for ICD 90 days post revascularization if LVEF does not improve
-Continue gentle diuresis, cr 1.5 09/22.
Discussed with nursing and CT surgery
Progress Note - Dynamic Balancer Set Up Worker
Subjective
Date of Service: September 22, 2025
Pt seen and examined. No complaints. No chest pain or shortness of breath.
Objective
Labs:
09/22/25 05:08
09/22/25 05:08
Labs
Hgb 9.0 g/dL (13.0-18.0) L 09/22/25 05:08
Hct 26.9 % (39.0-52.0) L 09/22/25 05:08
Plt Count 123 10^3/uL (130-400) L D 09/22/25 05:08
PT 17.2 Sec (11.4-14.6) H 09/21/25 04:40
INR 1.38 09/21/25 04:40
APTT 34.4 Sec (23.4-35.0) 09/17/25 13:10
Sodium 130 mmol/L (135-145) L 09/22/25 05:08
Potassium 3.8 mmol/L (3.5-5.1) 09/22/25 05:08
BUN 54 mg/dl (9-20) H 09/22/25 05:08
Creatinine 1.5 mg/dL (0.7-1.3) H 09/22/25 05:08
Glucose 88 mg/dl (70-99) 09/22/25 05:08
Vital Signs and I&O:
Vital Signs
Temp Pulse Resp BP Pulse Ox
99 F 73 25 126/61 94
09/22/25 06:00 09/22/25 07:00 09/22/25 07:00 09/22/25 06:00 09/22/25 07:00
Vital Signs
Temp Pulse Resp BP Pulse Ox
99 F 73 25 126/61 94
09/22/25 06:00 09/22/25 07:00 09/22/25 07:00 09/22/25 06:00 09/22/25 07:00
Intake & Output
09/20/25 09/21/25 09/22/25 09/23/25
06:59 06:59 06:59 06:59
Intake Total 1347.5 / 1378.6 1133.4 / 1163.3 1280.0 / 1300.0
Output Total 1175 / 1225 1450 / 1450 1929 / 1989
Balance 172.5 / 153.6 -316.6 / -286.7 -650.0 / -690.0 -40 / -40
Physical Exam
Physical Exam
General: No acute distress, AAOX3
Neck: Negative JVD
Heart: Regular, Negative S3 positive S1/S2, Negative S4, No murmur
Lungs: CTA b/l, negative wheezes/rales/rhonchi
Abd: Positive BS, NT/ND, neg rebound/rigidity/guarding
Ext: Negative cyanosis/clubbing/edema
Neuro: nonfocal
[2025-09-22] MEDS: LASIX 40 MG IV (09:55)
[2025-09-22] MEDS: NSS 500 IV (13:56)
[2025-09-22] MEDS: TYLENOL PO (15:23)
[2025-09-22] MEDS: SENOKOT PO (19:54)
[2025-09-22] MEDS: LOPRESSOR 12.5 MG PO (19:54)
--- NOTE | 2025-09-22 20:00 | PTCARENOTE ---
Assumed care of patient at 1900. Patient found resting in bed at time of assessment. Patient is AOx4, follows commands appropriately, moves all extremities. Lung sounds are diminished at the bases saO2 95% on RA. Heart sounds are audible, patient is
SR BBB on the monitor, normal palpable radial, weak but palpable dorsalis pedis. No observable edema. A+V wires are present but insulated. Patient reports multiple liquid BMs during day, voids in urinal. There is a sternal incision approx with surg
adhesive CENTRAL LAB TECHNICIAN, ABD dressing over CT wounds CDI, BLE inciison with aquacell dressing old drainage present, but not expanding, there is a L thigh incision with aquacell dressing old drainage present, there is an incision of left neck with 4x4 gauze
dressing CDI. Patient has R IJ cordis receiving KVO and a R AC PIV. Call streeter within reach. VSS.
[2025-09-22] MEDS: LIPITOR 40 MG PO (22:23)
[2025-09-22] MEDS: PROSCAR 5 MG PO (22:23)
[2025-09-23] VITALS (15 sets, daily range): BP systolic 95–155; BP diastolic 56–95; PULSE 75; O2SAT 99; BMI 29.8
--- NOTE | 2025-09-23 | PTCARENOTE ---
Patient placed on PW per CT PA instructions. Multiple loose BMs overnight. Patient impulsive attempting to get oob without assistance. According to patient: 'I wake up and don't know where I am'. Placed on bed alarm for safety. Remains SR on the
monitor.
--- NOTE | 2025-09-23 00:07 | W.PN.CT ---
Today's Communication / Plan
-
Plan:
-No major issues overnight. Hemodynamically and neurologically intact
-Impella D/C'd on 09/19
-Weaned off Dobutamine yesterday 09/22/25. Midodrine has been added for BP support
-BB resumed, on Toprol XL given soft BP, was on Coreg @ home
-Eventual Entresto when BP and Creatinine permits
-Kee d/c'd yesterday 09/22, unable to void and required straight cath for > 700 mL urine this AM @ 0400
-Monitor creatinine 1.4, down from 1.5; preop 0.9-1.2
-D/C cordis
-F/U 2-view cxr
-Repeat echo today
-Monitor platelets 180K, up from 123K. Received 1 {5pk} plt on 09/19
-Hyponatremia has resolved, 136 up from 130 yesterday
-Magnesium 2.4, mag oxide on hold
-Will replete K of 3.8
-Maintain temporary PW (will cut before d/c home)
-Encourage use of IS/OOB into chair
-Ambulate, PT-OT following and recommend SNF, pt wants to go home
Assessment / Plan
-
80 year old male with a history of MVCAD and ICM admitted for planned CABG x4 (VASQUEZ-LAD, RSVG-D2, RSVG-OM, RSVG-RPDA), possibly with Impella 5.5 support, and LAAE on 09/[address] Cartagena. Admitted pre-operatively for dobutamine assisted diuresis and
optimization prior to surgery
-s/p CABG x 4 (In situ VASQUEZ to LAD, Composite VASQUEZ to RSVG to High Diag seq OM, Ao to RSVG to RPDA); Placement of a direct aortic 5.5 Impella LVAD via 10 mm graft directly anastomosed to the ascending thoracic aorta by Dr Cartagena on 09/17/25, pod #6
-Bedside removal of Impella 5.5 with management of Hemashield graft by Dr. Resendez on 09/19/25
-intraop PASQUALE: His left ventricular ejection fraction preoperatively was 15% with global hypokinesis. He had a mild degree of mitral valve insufficiency. He was very hypertensive preoperatively. Following surgery his EF remained approximately 15
to 20% although his LV looked better decompressed with the 5.[address] flowing at P4. He had no new regional wall motion abnormalities and RV remained normal in both size and function. Of note his ascending thoracic aorta was a
little bit ectatic and somewhat friable. Multiple repair sutures were placed at the base of the 10 mm graft as well as antegrade site with pledgeted sutures.
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
-Severe ICM with LVEF of 15% and global hypokinesis
-SYDNI
-HFrEF
-Cataracts
-TN
-Enlarged prostate
-HTN/HLD
-CLL with chronically elevated white count and depressed platelet count
-Enlarged prostate
-Thrombocytopenia preop
-Urinary retention
-hematuria preop
-acute postop blood loss anemia
-acute on chronic postop thrombocytopenia
-acute postop atelectasis/ pulmonary insufficiency
-acute postop hypovolemia with subsequent hypervolemia
-MONO
-acute postop hyponatremia
-acute postop urinary retention, scanned for > 500 mL
Discussed patient care with: Cardiology, Nursing, Respiratory Therapy, Pharmacy and Care Team
Subjective
-
Date of Service: September 23, 2025
Pt c/o mild incisional pain, otherwise feels well
Objective Data
-
PT 17.2 Sec (11.4-14.6) H 09/21/25 04:40
INR 1.38 09/21/25 04:40
APTT 34.4 Sec (23.4-35.0) 09/17/25 13:10
Vital Signs
Vital Signs
Temp Pulse Resp BP Pulse Ox
98.8 F 63 18 135/76 95
09/22/25 23:00 09/22/25 23:00 09/22/25 23:00 09/22/25 22:26 09/22/25 23:[address]
CT Intake/Output/Weight
09/22/25 09/22/25 09/23/25
06:59 18:59 06:59
Intake Total 224.4 / 1300.0 60 / 140 80 / 140
Output Total 1005 / 1990 770 / 1020 250 / 1020
Balance -780.6 / -690.0 -710 / -880 -170 / -880
SaO2: 95 (RA)
Physical Exam
-
General: Awake, Oriented and AOx3
Cardiovascular: Regular rate & rhythm, No Murmurs, No Rub and No Gallop
Respiratory: Decreased Breath Sounds (at bases, otherwise clear)
Sternum: Stable
Incision: Clean, Dry, Intact and Dressing Intact
Extremities: Edema +1
Data Reviewed
-
Lab Results: Results Reviewed
Medications: Active Meds Reviewed
Chest X-Ray: Report Reviewed and Image Reviewed
ECG: Report Reviewed and Image Reviewed
[2025-09-23] MEDS: FLEXERIL 5 MG PO (01:05)
[2025-09-23] MEDS: TYLENOL 650 MG PO (02:30)
[2025-09-23 04:25] LABS: Hematocrit 29.6 % (39.0-52.0); Hemoglobin 10.1 g/dL (13.0-18.0); Mean Corp Hgb Conc. 34.1 g/dL (33.0-37.0); Mean Corpuscular Volume 91.4 fL (80.0-94.0); Platelet Count 180 10^3/uL (130-400); Red Cell Dist. Width 14.6 % (11.5-14.5)
[2025-09-23 04:34] LABS: ALT (SGPT) 30 U/L (0-50); AST (SGOT) 63 U/L (17-59); Albumin 3.0 g/dl (3.5-5.0); Alkaline Phosphatase 105 U/L (38-126); Blood Urea Nitrogen 51 mg/dl (9-20); Calcium 8.6 mg/dl (8.4-10.2); Carbon Dioxide 25 mmol/L (22-30); Chloride 105 mmol/L (98-107); Estimated Creatinine Clearance 44 ml/min; Glucose 108 mg/dl (70-99); Magnesium 2.4 mg/dl (1.6-2.3); Potassium 3.8 mmol/L (3.5-5.1); Sodium 136 mmol/L (135-145); Total Protein 5.3 g/dl (6.3-8.2); eGFR 50.18
--- NOTE | 2025-09-23 05:00 | PTCARENOTE ---
Patient c/o discomfort r/t PW oob to chair attempting to use urinal. Reports urinary urgency but low UOP. Bladderscan performed revealing 573. CT PA notified. Straight cathed for 700. Patient's symptoms resolved. Tylenol and flexeril for pain.
Remains on bed alarm patient remains impulsive and forgetful.
[2025-09-23] MEDS: KCL 40 MEQ PO (06:39)
[2025-09-23] MEDS: TYLENOL PO (06:40)
[2025-09-23] MEDS: LASIX 40 MG IV (08:33)
[2025-09-23] MEDS: VITAMIN D3 (cholecalciferol) 50 MCG PO (08:34)
[2025-09-23] MEDS: THERAGRAN 1 TABLET PO (08:34)
[2025-09-23] MEDS: PROTONIX 40 MG PO (08:34)
[2025-09-23] MEDS: MUCINEX 1200 MG PO ×2 (08:34→20:20)
[2025-09-23] MEDS: PLAVIX 75 MG PO (08:34)
[2025-09-23] MEDS: TOPROL XL 12.5 MG PO (08:34)
[2025-09-23] MEDS: PACERONE 200 MG PO ×3 (08:35→22:01)
[2025-09-23] MEDS: LOW STRENGTH ASPIRIN 81 MG PO (08:35)
--- NOTE | 2025-09-23 08:55 | W.PN.CARDCBS ---
Today's Communication / Plan
-
Supportive postoperative care
Diurese
Optimize goal-directed medical therapy as able
Impression / Plan
-
.
Primary highway patrol officer: Dr. Paez of [facility] [place]
Impression:
CAD
Status post LAD stents 2002, 2005, 2019
Triple-vessel coronary disease including in-stent restenosis of prior LAD stents by cath 08/21/25
Status post CABG x 4 and site to VASQUEZ to LAD, composite VASQUEZ to RSVG to high diagonal sequential OM, AO to RSVG to RPDA, placement of direct aortic 5.5 Impella LVAD 09/17/2025
Ischemic cardiomyopathy, EF 15-20 to now 30-35%
Chronic heart failure with reduced EF
Mild to moderate MR
Sick sinus syndrome
Hypertension
Hyperlipidemia
SYDNI
Polycythemia vera
CLL with chronic thrombocytopenia
Spinal stenosis
GERD
Depression/anxiety
ECHO 08/21/25: moderate concentric LVH, concentric remodeling with contraction dyssynchronous and EF 15 to 20%, mild to moderate MR, mild AR, mildly dilated ascending aorta
ECHO 09/18/25: LVEF 30-35%
Plan:
-Status post CABG x4: VASQUEZ to LAD, composite VASQUEZ to RSVG to high diagonal sequential OM, AO to RSVG to RPDA; placement of direct aortic 5.5 Impella LVAD 09/17/2025
-Impella removed 09/19 and continues to improve
-Dobutamine being weaned off 09/22
-Remains in sinus rhythm on amiodarone
-Cont with ASA/Plavix, high intensity statin, BB and amiodarone post-op
-GDMT limited by hypotension; Entresto held.
Continue midodrine for blood pressure support
-With reduced LVEF 30-35% will need consideration for ICD 90 days post revascularization if LVEF does not improve
-Postoperative urinary retention status post Kee catheter removal. Bladder scans planned
-Continue gentle diuresis, cr 1.5 09/22.
-Maintain temporary PW (will cut before d/c home)
-Encourage use of IS/OOB into chair
Progress Note - Purler
Subjective
Date of Service: September 23, 2025
Patient seen and examined with nursing at bedside. Denies chest pain or pressure, shortness of breath. Urinary retention noted with history of preoperative urinary retention/hesitancy. Bladder scan protocol ongoing.
Objective
Labs:
09/23/25 03:49
09/23/25 03:49
Labs
Hgb 10.1 g/dL (13.0-18.0) L 09/23/25 03:49
Hct 29.6 % (39.0-52.0) L 09/23/25 03:49
Plt Count 180 10^3/uL (130-400) D 09/23/25 03:49
PT 17.2 Sec (11.4-14.6) H 09/21/25 04:40
INR 1.38 09/21/25 04:40
APTT 34.4 Sec (23.4-35.0) 09/17/25 13:10
Sodium 136 mmol/L (135-145) 09/23/25 03:49
Potassium 3.8 mmol/L (3.5-5.1) 09/23/25 03:49
BUN 51 mg/dl (9-20) H 09/23/25 03:49
Creatinine 1.4 mg/dL (0.7-1.3) H 09/23/25 03:49
Glucose 108 mg/dl (70-99) H 09/23/25 03:49
Vital Signs and I&O:
Vital Signs
Temp Pulse Resp BP Pulse Ox
98.3 F 64 18 126/69 96
09/23/25 08:00 09/23/25 05:00 09/23/25 04:00 09/23/25 08:33 09/23/25 04:00
Vital Signs
Temp Pulse Resp BP Pulse Ox
98.3 F 64 18 126/69 96
09/23/25 08:00 09/23/25 05:00 09/23/25 04:00 09/23/25 08:33 09/23/25 04:00
Intake & Output
09/21/25 09/22/25 09/23/25 09/24/25
06:59 06:59 06:59 06:59
Intake Total 1133.4 / 1163.3 1280.0 / 1300.0 180 / 180
Output Total 1450 / 1450 193 / 1989 1820 / 1820
Balance -316.6 / -286.7 -650.0 / -690.0 -1640 / -1640
Physical Exam
Physical Exam
General: No acute distress, AAOX3
Heart: Regular, positive S1/S2, No rub 1/6 SM
Lungs: CTA b/l, negative wheezes/rales/rhonchi
Abd: Positive BS, NT/ND, neg rebound/rigidity/guarding
Ext: No edema
--- NOTE | 2025-09-23 09:59 | PTCARENOTE ---
Pt received from night shift manager RN. Pt is Ox3, unpleasant and irritated with his stay in general. He's upset that his stay isn't going the way he had thought it would and he feels that he is not getting enough rehab. He tells me he hasn't gotten any
sleep bc he was up all night trying to urinate. Educated pt on his specific plan of care and he seems to be more agreeable. NSR with a BBB, + pulses, trace edema of the LE's. AV epicardial wires insulated. 96% on RA, breath sounds clear. Hypoactive
BS, pt complains of diarrhea. He's been attempting to urinate all morning, he's been able to put out ~10mls of blood tinged urine. Bladder scanned and straight cath'd for 450mls with immediate relief, urine clear yellow. Ax1 RW, assisted to the
bathroom without difficulty. Midline incision approximated. BL LE incisions covered in AC with some drainage present. Call streeter within reach. Pt makes needs known.
--- NOTE | 2025-09-23 12:19 | CM ---
Reviewed chart. Met with and Mrs. Hackett to review discharge plans. He states he is disappointed by his progress. While he was with physical therapy spoke with his spouse about having a back-up plan of going to rehab. if indicated. She
suggested referrals to [facility]. and [facility]. She states they are on the waiting list for the [facility]. [facility]. Sent the referral. Telephone call
to [facility]missions to make the referral. Referral sent. Await determinations regarding ability to accept. Medical work-up in progress. The discharge plan is to go to some level of inpatient rehab. versus home with spouse and the
Transitional Care Nurse when medically stable.
[2025-09-23] MEDS: CARDURA 8 MG PO (13:08)
[2025-09-23] MEDS: TYLENOL 975 MG PO ×2 (13:08→22:01)
[2025-09-23] MEDS: NSS IV (13:35)
[2025-09-23] MEDS: TOPROL XL PO (20:39)
[2025-09-23] MEDS: SEROQUEL 25 MG PO (22:01)
[2025-09-23] MEDS: PROSCAR 5 MG PO (22:02)
[2025-09-23] MEDS: LIPITOR 40 MG PO (22:02)
--- NOTE | 2025-09-23 23:00 | PTCARENOTE ---
Received patient from saeg RN at 1900, resting comfortably in bed. AAOx3, able to OTT, denies pain. NSR on monitor, BP soft with systolic in 90s, +pulses, trace edema to B/L LEs. Insulated AV epicardial wires in place. Lungs clear, on RA. Kee
present draining clear yellow urine. Pat at bedside, plan of care discussed. Call streeter within reach, continuing with plan of care.
[2025-09-24] VITALS (10 sets, daily range): BP systolic 95–149; BP diastolic 50–79; PULSE 83; BMI 29.2
--- NOTE | 2025-09-24 02:37 | W.PN.CT ---
Today's Communication / Plan
-
Plan:
-No major issues overnight. Hemodynamically and neurologically intact
-Impella D/C'd on 09/19
-Weaned off Dobutamine on 09/22/25. Midodrine was added for BP support, currently on hold
-BB resumed, on Toprol XL given soft BP, was on Coreg @ home
-Eventual Entresto or Jardiance when BP and Creatinine permits
-MONO has resolved, cr 1.2 today, was 1.4 yesterday; preop 0.9-1.2
-F/U 2-view cxr
-Repeat echo yesterday showed an improved EF from 30-35 to 40-45%
-Thrombocytopenia has resolved, plt 169K today
-Hyponatremia has resolved, 137
-Magnesium 2.3, mag oxide on hold
-Will replete K of 3.5
-Maintain temporary PW (will cut before d/c home)
-Encourage use of IS/OOB into chair
-Ambulate, PT-OT following and recommend SNF, pt wants to go home
Assessment / Plan
-
80 year old male with a history of MVCAD and ICM admitted for planned CABG x4 (VASQUEZ-LAD, RSVG-D2, RSVG-OM, RSVG-RPDA), possibly with Impella 5.5 support, and LAAE on 09/[address] Cartagena. Admitted pre-operatively for dobutamine assisted diuresis and
optimization prior to surgery
-s/p CABG x 4 (In situ VASQUEZ to LAD, Composite VASQUEZ to RSVG to High Diag seq OM, Ao to RSVG to RPDA); Placement of a direct aortic 5.5 Impella LVAD via 10 mm graft directly anastomosed to the ascending thoracic aorta by Dr Cartagena on 09/17/25, pod #7
-Bedside removal of Impella 5.5 with management of Hemashield graft by Dr. Resendez on 09/19/25
-intraop PASQUALE: His left ventricular ejection fraction preoperatively was 15% with global hypokinesis. He had a mild degree of mitral valve insufficiency. He was very hypertensive preoperatively. Following surgery his EF remained approximately 15
to 20% although his LV looked better decompressed with the 5.[address] flowing at P4. He had no new regional wall motion abnormalities and RV remained normal in both size and function. Of note his ascending thoracic aorta was a
little bit ectatic and somewhat friable. Multiple repair sutures were placed at the base of the 10 mm graft as well as antegrade site with pledgeted sutures.
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
-Severe ICM with LVEF of 15% and global hypokinesis
-SYDNI
-HFrEF
-Cataracts
-TN
-Enlarged prostate
-HTN/HLD
-CLL with chronically elevated white count and depressed platelet count
-Enlarged prostate
-Thrombocytopenia preop
-Urinary retention
-hematuria preop
-acute postop blood loss anemia
-acute on chronic postop thrombocytopenia
-acute postop atelectasis/ pulmonary insufficiency
-acute postop hypovolemia with subsequent hypervolemia
-MONO
-acute postop hyponatremia
-acute postop urinary retention, scanned for > 500 mL
Discussed patient care with: Cardiology, Nursing, Respiratory Therapy, Pharmacy and Care Team
Subjective
-
Date of Service: September 24, 2025
Pt c/o mild incisional pain, otherwise feels well
Objective Data
-
PT 17.2 Sec (11.4-14.6) H 09/21/25 04:40
INR 1.38 09/21/25 04:40
APTT 34.4 Sec (23.4-35.0) 09/17/25 13:10
Vital Signs
Vital Signs
Temp Pulse Resp BP Pulse Ox
98.2 F 67 18 95/50 97
09/24/25 00:00 09/24/25 00:00 09/24/25 00:00 09/24/25 00:00 09/24/25 00:00
CT Intake/Output/Weight
09/23/25 09/23/25 09/24/25
06:59 18:59 06:59
Intake Total 120 / 180 720 / 840 120 / 840
Output Total 1050 / 1820 1560 / 1760 200 / 1760
Balance -930 / -1640 -840 / -920 -80 / -920
SaO2: 97 (RA)
Physical Exam
-
General: Awake, Oriented and AOx3
Cardiovascular: Regular rate & rhythm, No Murmurs, No Rub and No Gallop
Respiratory: Decreased Breath Sounds (at bases, otherwise clear)
Sternum: Stable
Incision: Clean, Dry, Intact and Dressing Intact
Extremities: Other (+trace edema)
Data Reviewed
-
Lab Results: Results Reviewed
Medications: Active Meds Reviewed
Chest X-Ray: Report Reviewed and Image Reviewed
ECG: Report Reviewed and Image Reviewed
[2025-09-24 05:55] LABS: Hematocrit 26.7 % (39.0-52.0); Hemoglobin 8.9 g/dL (13.0-18.0); Mean Corp Hgb Conc. 33.3 g/dL (33.0-37.0); Mean Corpuscular Volume 93.7 fL (80.0-94.0); Platelet Count 169 10^3/uL (130-400); Red Cell Dist. Width 14.8 % (11.5-14.5)
[2025-09-24] MEDS: TYLENOL 975 MG PO (06:07)
[2025-09-24 06:21] LABS: ALT (SGPT) 44 U/L (0-50); AST (SGOT) 77 U/L (17-59); Albumin 2.7 g/dl (3.5-5.0); Alkaline Phosphatase 87 U/L (38-126); Blood Urea Nitrogen 39 mg/dl (9-20); Calcium 8.5 mg/dl (8.4-10.2); Carbon Dioxide 27 mmol/L (22-30); Chloride 106 mmol/L (98-107); Estimated Creatinine Clearance 46 ml/min; Glucose 97 mg/dl (70-99); Magnesium 2.3 mg/dl (1.6-2.3); Potassium 3.5 mmol/L (3.5-5.1); Sodium 137 mmol/L (135-145); Total Protein 4.8 g/dl (6.3-8.2); eGFR > 60.00
[2025-09-24] MEDS: TOPROL XL 12.5 MG PO (08:31)
[2025-09-24] MEDS: PACERONE 200 MG PO (08:31)
[2025-09-24] MEDS: PROTONIX 40 MG PO (08:31)
[2025-09-24] MEDS: LOW STRENGTH ASPIRIN 81 MG PO (08:31)
[2025-09-24] MEDS: MUCINEX 1200 MG PO (08:31)
[2025-09-24] MEDS: VITAMIN D3 (cholecalciferol) 50 MCG PO (08:31)
[2025-09-24] MEDS: KCL 40 MEQ PO (08:31)
[2025-09-24] MEDS: FARXIGA 10 MG PO (08:31)
[2025-09-24] MEDS: THERAGRAN 1 TABLET PO (08:31)
[2025-09-24] MEDS: PLAVIX 75 MG PO (08:31)
[2025-09-24] MEDS: BUMEX 2 MG PO (08:36)
[2025-09-24] MEDS: NSS IV (08:40)
--- NOTE | 2025-09-24 09:34 | PTCARENOTE ---
Pt received from operation shift supervisor RN. Ox3 and in a better mood today. Pt wants to go home today, preferably to home. I educated him about PT's recommendations for SNF v rehab. Epicardial wires insulated, sites cleaned with CHG and fresh dressing applied.
Kee catheter in place draining tk urine. PT currently working with pt. Call streeter within reach, pt makes needs known.
--- NOTE | 2025-09-24 14:23 | W.PN.CARDCBS ---
Today's Communication / Plan
-
plan for DC to home with home services today
OP follow up with [facility]
Impression / Plan
-
.
Primary spinneret cleaner: Dr. Paez of [facility] [place]
Impression:
CAD
Status post LAD stents 2002, 2005, 2019
Triple-vessel coronary disease including in-stent restenosis of prior LAD stents by cath 08/21/25
Status post CABG x 4 and site to VASQUEZ to LAD, composite VASQUEZ to RSVG to high diagonal sequential OM, AO to RSVG to RPDA, placement of direct aortic 5.5 Impella LVAD 09/17/2025
Ischemic cardiomyopathy, EF 15-20 to now 30-35%
Chronic heart failure with reduced EF
Mild to moderate MR
Sick sinus syndrome
Hypertension
Hyperlipidemia
SYDNI
Polycythemia vera
CLL with chronic thrombocytopenia
Spinal stenosis
GERD
Depression/anxiety
ECHO 08/21/25: moderate concentric LVH, concentric remodeling with contraction dyssynchronous and EF 15 to 20%, mild to moderate MR, mild AR, mildly dilated ascending aorta
ECHO 09/18/25: LVEF 30-35%
ECHO 09/23/25: EF 40-45%, no regional wall motion abnormalities noted, aortic sclerosis, LV diffusely hypokinetic, mild MAC, trace MR
Plan:
-Status post CABG x4: VASQUEZ to LAD, composite VASQUEZ to RSVG to high diagonal sequential OM, AO to RSVG to RPDA; placement of direct aortic 5.5 Impella LVAD 09/17/2025
-Impella removed 09/19
-Dobutamine weaned off 09/22
-Remains in sinus rhythm on amiodarone, toprol
-Continue aspirin, Plavix, high intensity statin
-EF by echo 09/23 improved to 40 to 45%. GDMT of cardiomyopathy presently limited by hypotension requiring midodrine, uptitrate as outpatient as able. Will need repeat assessment of EF at 3-month consuelo postop
-Postoperative urinary retention, remains with Kee catheter. Outpatient urology follow-up
-Cr improved to 1.2 on 09/24. on po bumex 2mg daily
-continue cardiac rehab
-plan for DC to home with home PT/VN today
-OP follow up with [facility]
-d/w nursing, patient/ at bedside
Progress Note - Outside Plant Field Engineer
Subjective
Date of Service: September 24, 2025
feeling well. for DC today
Objective
Labs:
09/24/25 05:37
09/24/25 05:37
Labs
Hgb 8.9 g/dL (13.0-18.0) L 09/24/25 05:37
Hct 26.7 % (39.0-52.0) L 09/24/25 05:37
Plt Count 169 10^3/uL (130-400) 09/24/25 05:37
PT 17.2 Sec (11.4-14.6) H 09/21/25 04:40
INR 1.38 09/21/25 04:40
APTT 34.4 Sec (23.4-35.0) 09/17/25 13:10
Sodium 137 mmol/L (135-145) 09/24/25 05:37
Potassium 3.5 mmol/L (3.5-5.1) 09/24/25 05:37
BUN 39 mg/dl (9-20) H 09/24/25 05:37
Creatinine 1.2 mg/dL (0.7-1.3) 09/24/25 05:37
Glucose 97 mg/dl (70-99) 09/24/25 05:37
Vital Signs and I&O:
Vital Signs
Temp Pulse Resp BP Pulse Ox
98.4 F 97 24 138/79 96
09/24/25 08:00 09/24/25 12:00 09/24/25 05:00 09/24/25 12:00 09/24/25 08:50
Vital Signs
Temp Pulse Resp BP Pulse Ox
98.4 F 97 24 138/79 96
09/24/25 08:00 09/24/25 12:00 09/24/25 05:00 09/24/25 12:00 09/24/25 08:50
Intake & Output
09/22/25 09/23/25 09/24/25 09/25/25
07:59 07:59 07:59 07:59
Intake Total 1270.1 / 1270.1 160 / 640 940 / 1420 480 / 480
Output Total 1989 / 2049 1760 / 1770 2110 / 2210 1000 / 1000
Balance -719.9 / -779.9 -1600 / -1130 -1170 / -790 -520 / -520
Physical Exam
Physical Exam
GEN: No distress, awake, alert, oriented x3. sitting in chair
HEENT: supple, anicteric, mmm
LUNGS: no audible wheezes
CV: Reg on tele
EXT: No cyanosis, clubbing. trace edema of B/L LE. Dressings to B/L LE noted
NEURO: Gross non-focal
SKIN: Warm, pink, dry. No rash. Sternotomy incision c/d/i.
: nayely
[2025-09-24] MEDS: TYLENOL PO (15:26)
--- NOTE | 2025-09-24 15:37 | W.DCSUMMARY ---
Discharge Summary
Discharge Data
Date of Admission: 09/15/25
Date of Discharge: 09/24/25
Total time spent discharging patient (in min): 75
-
Pending Results: No
Hospital Course
Primary care physician: Melody Wright
Outpatient lay out machine operator: Kemal Paez
Inpatient consultants: DCA, pulm/critical care- Lynn
Procedures:
1. 09/17/25 elective CABG x4 (VASQUEZ-LAD, SVG-PDA, SVG-Dx-OM) with placement of 5.[address] Chun Cartagena
2. 09/19/25 bedside removal impella 5.5 by Drs. Resendez & Karen
Primary Diagnosis:
1. MVCAD s/p LAD stent 2002 with previous MIs and multiple stents
2. Severe ICM with LVEF of 15% and global hypokinesis
Secondary Diagnoses:
1. obstructive sleep apnea
2. chronic systolic heart failure with reduced EF
3. hypertension
4. hyperlipidemia
5. enlarged prostate
6. hx cataracts
7. CLL with chronic leukocytosis & thrombocytopenia
8. preop hematuria
9. acute postop blood loss anemia
10. postop hypovolemia with subsequent hypervolemia, responding to diuretics
11. postop MONO with peak creatinine 1.8, resolved
12. acute postop urinary retention, adler replaced 09/23--plan for outpatient voiding trial
HPI: Patient is an 80-year-old male with known history of coronary disease, MT and LAD stent in 2002 with recent positive outpatient stress test and subsequent left heart catheterization that demonstrated multivessel coronary artery disease.
Outpatient echo demonstrated severe global hypokinesis with EF of 15%. He was therefore referred for CABG. After outpatient evaluation decision was made to bring patient in electively for medical optimization prior to proceeding with CABG.
Hospital course: Patient admitted electively on 09/15/25 and placed on dobutamine gtt at 3 and IV Bumex 3 times daily for medical optimization. Adler was placed at this time for urinary retention. On hospital day 2 repeat transthoracic echo was
completed which demonstrated improved EF at 40% while on inotropes. Patient was also evaluated by heme/onc for chronic great elevated white blood cell count and was cleared to proceed. On 09/17 patient proceeded to see [facility] where he underwent an
uncomplicated CABG x 4 with planned placement of a central Impella 5.5. Please see full operative report for details. Patient was transferred to CVICU postoperatively on Dobutrex at 5, he extubated later that afternoon without incident. Impella
was on P5. Amiodarone drip was started for bigeminy with related hypotension. 1 pack of platelets transfused for acute on chronic thrombocytopenia. On postop day 1 Entresto was started for his ischemic cardiomyopathy and Cardene was weaned off,
Impella weaned to P4. Postop day 2 he received 1 more pack of platelets for acute thrombocytopenia. Impella was discontinued at bedside by Drs. Resendez and Karen without incident. Dobutamine remains at 5 Levophed started at 2 for low blood
pressure. Gentle diuresis was started. On postop day 3 creatinine has increased to 1.8, Levophed weaned off and midodrine was started. Dobutamine weaned to 2. Dobutamine was slowly weaned over the next 2 days creatinine gradually normalized and
diuretics have been increased with good response. Adler was discontinued on day 5 but patient required multiple straight caths and replacement of Adler for acute urinary retention. Patient has an outpatient urologist to follow-up with for voiding
trial in a week. Follow-up transthoracic echo on 1110 demonstrates EF of 40 to 45%. Midodrine has been weaned off and patient is tolerating low-dose Toprol-XL. Patient is discharged to home with visiting nurse and home physical therapy.
Home medication changes: coreg & losartan held at this time due to relative hypotension; torsemide held while taking bumex. New Rx Toprol Xl 12.5mg BID for GDMT. New Rx for Plavix for vein graft patency x 1 month. Take bumex & Kcl x 10 days or
until re-evaluated by cardiology.
Discharge Plan
-
Patient Disposition: Home with Home Care
Discharge Diagnosis/Procedures: CAD, ICM; s/p CABG X 4 with Impella 5.5 support (09/17/25)
Condition: Fair
Diet: Low Cholesterol and Low Sodium
Activity: No strenuous activity
Driving Restrictions: Not until seen by your Dr
Bathing Restrictions: OK to Shower
Other Services: VN, PT, OT and Cardiac Rehab
Specialty Instructions: Weigh Daily- Call MD for wt gain/loss 3 lbs overnight/5 lbs in 1 week
Activity Restrictions/Additional Instructions:
ACTIVITY:
-No strenuous activity: no heavy lifting, pushing, pulling anything over 15 pounds for one month
-continue to use stairs as tolerated
DRIVING RESTRICTIONS:
-No driving for one month or until approved by your surgeon
WOUND CARE:
-Shower daily. Use soap & water.
-No lotions, creams or powders on incision area.
DIET:
-continue a low fat/low cholesterol diet.
-IF you are diabetic, continue carb controlled diet.
CARDIAC REHAB:
-Please make appointment to start in 5-6 weeks with your local hospital program. (See Cardiac Rehabilitation Discharge Booklet).
Please restart Phase II Cardiac Rehab (currently in Phase III at [facility])
1) [facility]: [phone]
SPECIALTY INSTRUCTIONS:
-Weigh yourself daily. Call your physician for any weight gain/loss of 3 lbs overnight or 5 lbs in one week.
-REPORT any clicking noise or uneven appearance of your sternum to your surgeon immediately.
-If you smoke, you are instructed to quit. The [place] smoking hotline phone number is [phone]
Referrals:
[facility]Visiting Nurse [Outside]
Kori Paez MD [Affiliate, Cardiology] - 11/04/25 1:00 pm
Gabriel Quintana MD [Active, Urology]
Referral Note: Follow up with your urologist within 1 week for voiding trial/removal of catheter
O'Brandon,Melody, MD [Family Provider, Family Practice]
Lalo Bailey MD [Active, Pulmonary Medicine] - in one to two months
Referral Note: Pulmonary nodule
Chun Cartagena MD [Active, Cardiac Surgery] - 10/21/25 2:00 pm
Prescriptions:
New
acetaminophen 325 mg Tablet
650 mg PO Q6HPRN PRN (Reason: mild pain,headache,temp >101F ) Qty: 0 0RF
aspirin 81 mg Tablet,Chewable
81 mg PO DAILY Qty: 0 0RF
clopidogrel 75 mg Tablet
75 mg PO DAILY Qty: 30 1RF
metoprolol succinate 25 mg Tablet Extended Release 24 Hr
12.5 mg PO BID Qty: 30 1RF
potassium chloride [Klor-Con M20] 20 mEq Tablet,Er Particles/Crystals
20 meq PO ONCE@2200 Qty: 10 0RF
bumetanide 2 mg tablet
2 mg PO DAILY Qty: 10 0RF
Rx Instructions:
Take for the next 10 days or until seen by cardiology
Continued
multivitamin Tablet
1 tab PO DAILY
atorvastatin [Lipitor] 40 mg Tablet
40 mg PO HS
famotidine 40 mg Tablet
40 mg PO BID
doxazosin 8 mg Tablet
8 mg PO HS
finasteride 5 mg Tablet
5 mg PO HS
cholecalciferol (vitamin D3) [Vitamin D3] 50 mcg (2,000 unit) Tablet
50 mcg PO DAILY
Jardiance 10 mg Tablet
10 mg PO DAILY
quetiapine [Seroquel] 25 mg Tablet
25 mg PO HS
Discontinued
torsemide 5 mg Tablet
5 mg PO DAILY
losartan 25 mg Tablet
25 mg PO BID
carvedilol phosphate 20 mg Capsule, Er Multiphase 24 Hr
20 mg PO DAILY
Patient Comments:
stop taking, on 12.5 mg PO bid now of coreg, lowered his BP
carvedilol 12.5 mg Tablet
12.5 mg PO BID
Discharge Orders:
Discharge Patient (As Directed); Ordered 09/24/25
Ordered By: Bertha Martínez
Discharge Date and Time
Print Language: GAMBIAN
--- NOTE | 2025-09-24 15:40 | CM ---
Reviewed chart. Met with and Mrs. Hackett to review discharge plans. Telephone call to [facility]. Admission who states they did approve him for inpatient admission and would have a bed tomorrow. Patient and spouse reviewed with attending
physician who states he if can do steps he can go home with home care. Physical therapy saw him this afternoon. Patient has decided to go home with home care.They have selected [facility]. Telephone call to [facility] to make the
referral. Sent referral. [facility] can accept the case. Updated medical team and patient and spouse. Medical work-up in progress. The discharge plan is to go home with his spouse with [facility] when medically stable.
[2025-09-24] MEDS: PACERONE PO (17:21)
--- NOTE | 2025-09-24 17:22 | PTCARENOTE ---
Pt motivated to leave today. He will be discharged with his adler catheter in place, which is new for him. Instructed the pt and his on proper adler care techniques and CAUTI prevention. I started by giving them written materials to review, we
then went over the contents together. After sufficient understanding, I demonstrated how to exchange between the 2L bag and the leg bag while maintaining aseptic technique. I had him and his then demonstrate and after which they taught me how
to care for his catheter. Shortly after, we went over how to care for his incisions and then I helped him into the shower. He did well, he and his felt comfortable going home. Went over DC instructions and he was picked up by his .
== END 2025-09-24 17:41 | disposition home health service (06) | DRG 1 ==
LOC: CVICU 13:20
PROVIDERS: Anesthesiology; Clinical Nurse Specialist Acute Care; Nurse Practitioner; Physician Assistant Medical; Thoracic Surgery (Cardiothoracic Vascular Surgery); ADMITTING PHYSICIAN Thoracic Surgery (Cardiothoracic Vascular Surgery); CONSULT PHYSICIAN Internal Medicine Critical Care Medicine; FAMILY PHYSICIAN Family Medicine; OTHER PHYSICIAN Internal Medicine Cardiovascular Disease
PROC: 5A0221D Assistance with Cardiac Output using Impeller Pump, Continuous (ICD-10-PCS; 2025-09-17)
PROC: 021209W Bypass Coronary Artery, Three Arteries from Aorta with Autologous Venous Tissue, Open Approach (ICD-10-PCS; 2025-09-17)
PROC: 5A1221Z Performance of Cardiac Output, Continuous (ICD-10-PCS; 2025-09-17)
PROC: 06BP4ZZ Excision of Right Saphenous Vein, Percutaneous Endoscopic Approach (ICD-10-PCS; 2025-09-17)
PROC: 02HA0RZ Insertion of Short-term External Heart Assist System into Heart, Open Approach (ICD-10-PCS; 2025-09-17)
PROC: 02100Z9 Bypass Coronary Artery, One Artery from Left Internal Mammary, Open Approach (ICD-10-PCS; 2025-09-17)
PROC: 06BQ4ZZ Excision of Left Saphenous Vein, Percutaneous Endoscopic Approach (ICD-10-PCS; 2025-09-17)
PROC: X2HX0F9 Insertion of Conduit to Short-term External Heart Assist System into Thoracic Aorta, Ascending, Open Approach, New Technology Group 9 (ICD-10-PCS; 2025-09-17)
PROC: 30233R1 Transfusion of Nonautologous Platelets into Peripheral Vein, Percutaneous Approach (ICD-10-PCS; 2025-09-17)
PROC: B24BZZ4 Ultrasonography of Heart with Aorta, Transesophageal (ICD-10-PCS; 2025-09-17)
PROC: 02PW3RZ Removal of Short-term External Heart Assist System from Thoracic Aorta, Descending, Percutaneous Approach (ICD-10-PCS; 2025-09-19)
DX: I25.10 Atherosclerotic heart disease of native coronary artery without angina pectoris (principal); I50.23 Acute on chronic systolic (congestive) heart failure; R57.0 Cardiogenic shock; J95.1 Acute pulmonary insufficiency following thoracic surgery; C91.10 Chronic lymphocytic leukemia of B-cell type not having achieved remission; N17.9 Acute kidney failure, unspecified; E87.1 Hypo-osmolality and hyponatremia; D62 Acute posthemorrhagic anemia; J98.11 Atelectasis; T82.855A Stenosis of coronary artery stent, initial encounter; I25.5 Ischemic cardiomyopathy; D69.6 Thrombocytopenia, unspecified; I11.0 Hypertensive heart disease with heart failure; E78.00 Pure hypercholesterolemia, unspecified; N40.1 Benign prostatic hyperplasia with lower urinary tract symptoms; R91.1 Solitary pulmonary nodule; R73.9 Hyperglycemia, unspecified; H26.9 Unspecified cataract; I34.0 Nonrheumatic mitral (valve) insufficiency; F32.A Depression, unspecified; F41.9 Anxiety disorder, unspecified; E86.1 Hypovolemia; N99.0 Postprocedural (acute) (chronic) kidney failure; Y83.2 Surgical operation with anastomosis, bypass or graft as the cause of abnormal reaction of the patient, or of later complication, without mention of misadventure at the time of the procedure; K21.9 Gastro-esophageal reflux disease without esophagitis; M48.00 Spinal stenosis, site unspecified; D45 Polycythemia vera; G47.33 Obstructive sleep apnea (adult) (pediatric); R31.9 Hematuria, unspecified; R33.8 Other retention of urine; Y83.1 Surgical operation with implant of artificial internal device as the cause of abnormal reaction of the patient, or of later complication, without mention of misadventure at the time of the procedure; I49.5 Sick sinus syndrome; I25.2 Old myocardial infarction; Z79.82 Long term (current) use of aspirin; Z79.899 Other long term (current) drug therapy; Z82.49 Family history of ischemic heart disease and other diseases of the circulatory system; Z87.891 Personal history of nicotine dependence; Z95.5 Presence of coronary angioplasty implant and graft
CPT/HCPCS: 36415; 71045; 71046; 80048; 80053; 80076; 81003; 81015; 82248; 82330; 82565; 82805; 82810; 82947; 82962; 83010; 83036; 83605; 83615; 83735; 83880; 84132; 84302; 84520; 85014; 85018; 85025; 85027; 85049; 85379; 85384; 85610; 85730; 86850; 86900; 86901; 86920; 87070; 87086; 93005; 93306; 93308; 93312; 93320; 93325; 94002; 97110; 97116; 97163; 97167; 97530; 97535; C1768; J0282; J1250; J2916; P9045; P9047; P9073; Q9950

== ENCOUNTER 2025-09-29 19:05 | Inpatient (IN) | payer MEDICARE, OTHER, SELFPAY ==
[2025-09-29] VITALS (25 sets, daily range): BP systolic 66–139; BP diastolic 48–82; BMI 28.9
[2025-09-29] MEDS: NSS 1000 IV ×2 (16:27→17:48)
--- NOTE | 2025-09-29 16:31 | ED.GENMED ---
History of Present Illness
General
Chief Complaint: Dizziness
Source: patient, spouse and family
Exam Limitations: none
Time Seen by Provider: 09/29/25 16:29
Nursing documentation reviewed up to this point in time: agreed with
History of Present Illness
History of Present Illness:
Note:
CHIEF COMPLAINT(S)
Recurrent episodes of shaking and recent falls.
HISTORY OF PRESENT ILLNESS
The patient is an 80-year-old male who presented with recurrent episodes of shaking. According to the patients spouse, these episodes occurred three times today. The first episode happened while the patient was being assisted to the bathroom, during
which he fell onto his knees but was able to recover. The second episode occurred while getting into bed; again, the patient recovered afterward. The third episode was noted to be more severe, with the patient appearing pale and unwell, prompting
the decision to seek medical attention.
Additionally, the patient has a urinary catheter and has been experiencing difficulties with comfort due to a partially healed surgical site and potential pressure ulcers. The spouse also reported that the patient has been experiencing shoulder pain
on the left side. Despite his condition, the patient is oriented to person, place, time, and situation.
The patient was recently discharged from a medical facility on September 24 following surgery on September 17. The surgery involved extensive interventions including the use of intravenous pumps. Post-discharge, home care services have been
involved in the patients care. There are no recent changes in his eating or drinking habits. The patient also reports some coughing.
PAST MEDICAL AND SURGICAL HISTORY
The patient had surgery on September 17 and was discharged on September 24. Specific details of the surgical procedure were not discussed.
PHYSICAL EXAM
General: ill appearing, hypotensive.
Skin: Warm, dry.
Head: Normocephalic, atraumatic.
Neck: Supple, trachea midline.
Eye Ears, nose, mouth and throat: Oral mucosa moist.
Cardiovascular: Normal peripheral perfusion, no edema. healing midline sternotomy
Respiratory: Respirations are non-labored.
Gastrointestinal: Abdomen nondistended.
Back: Normal range of motion, normal alignment.
Musculoskeletal: Normal range of motion, normal strength.
Neurological: Alert and oriented to person, place, time, and situation, no focal neurological deficit observed.
Psychiatric: Cooperative, appropriate mood and affect.
PLAN
Order an X-ray to assess for any acute injuries or changes.
Perform lab tests to monitor the patients condition and check for underlying issues contributing to the shaking episodes.
Continue close monitoring and reassess as necessary.
DIFFERENTIAL DIAGNOSIS
The Differential Diagnosis includes, in no particular order and is not limited to:
1. Seizure disorder
2. Transient ischemic attack
3. Orthostatic hypotension
4. Cardiac arrhythmia
5. Electrolyte imbalance
6. Hypoglycemia
7. Infection or sepsis
8. Medication side effects
9. Stroke
10. Parkinsons disease
CARE-UPDATE
09/29/25 - 19:11
CT scan revealed a significant left pleural effusion with bleeding into the pericardial sac. Dr. Cartagena inserted a chest tube on the left side, draining over two liters of blood. Four units of blood were ordered. The patient was subsequently taken to
the operating room following the catheterization lab.
EKG
My independent EKG interpretation is:
- Time of EKG: Not specified
- Rhythm: Sinus rhythm
- Heart Rate: 94 bpm
- Notable Intervals: Not specified
- [place]: Not specified
- Abnormalities Observed:
- Transfer atrial complexes
- Incomplete left bundle branch block
- ST and T wave abnormality
- Comparison: No significant changes from EKG on September 24, 2020
Disposition:
SUMMARY OF ENCOUNTER
The patient, an 80-year-old male, presented to the emergency department with recurrent episodes of shaking and recent falls. Upon further assessment, a CT scan revealed a significant left pleural effusion with bleeding into the pericardial sac. This
finding warranted the immediate insertion of a chest tube by Dr. Cartagena, which drained over two liters of blood. Due to the severity of the condition, the patient was then transferred to the cardiac catheterization lab and subsequently to the
operating room.
DISPOSITION
The patient was taken emergently to the cardiac catheterization lab and operating room.
ASSESSMENT
The patient exhibited a left-sided pleural effusion and hemothorax with pericardial hemorrhage necessitating critical intervention.
EMERGENCY TREATMENTS ADMINISTERED
A chest tube was inserted, which drained over two liters of blood. Four units of packed red blood cells were ordered, and two units were administered in the emergency department.
INDEPENDENT REVIEW OF LABS AND INTERPRETATION OF TESTS
My independent interpretation of the CT scan shows significant left pleural effusion with bleeding into the pericardial sac.
DIAGNOSIS
- Left pleural effusion with hemothorax (ICD-10 code: J91.8)
- Pericardial hemorrhage (ICD-10 code: I31.3)
Phy Exam
Physical Exam
Physical Exam:
.
Course
Orders/Labs/Results
Orders:
Orders
09/29/25 16:14
Electrocardiogram (*1) Urgent
Reason for Study: Chest Pain
EKG- Treatment ONCE
09/29/25 16:25
BNP [NT-proBNP] Urgent
Complete Blood Count/With Diff Urgent
Comprehensive Metabolic Panel Urgent
PTT Urgent
Prothrombin Time Urgent
Troponin I Urgent
09/29/25 16:27
0.9% Sodium Chloride 1000 ml [Nss] 1,000 ml IV BOLUS
09/29/25 16:30
CR Chest Portable - 1 View Urgent
Comment:
Reason For Exam: chest pain, s/p cabg x4
Reason Study Needs to be Portable: Patient Unstable
09/29/25 16:36
NORepinephrine 4 MG/250 ML [Levophed] 4 mg in 250 ml IV NOW
Initial dose in mcg/min, then titrate:: 4
Titrate to keep:: SBP > 90 mmHg
Titrate by mcg/min:: 1-2 mcg/min
Frequency of titrations (minutes):: 5
Maximum dose in ICU in mcg/min:: 30
Maximum dose in IMU in mcg/min:: 8
Maximum dose in IVU in mcg/min:: 4
Begin to taper infusion when:: Remained at goal for 4hrs
Taper by mcg/min:: 1-2 mcg/min
Frequency of taper (minutes) if patient maintains goal:: 30
Taper to off?: Yes
If infusion off & no longer maintaining goal:: Contact Provider
09/29/25 16:39
Echo 2D MMode Color/Doppler Stat
Reason for Study: hypotension, s/p cabg
09/29/25 17:01
CT Chest/abd/pelvis Angio W/wo Stat
Comment:
Reason For Exam: hypotension s/p cabg, pleural effusion
09/29/25 17:28
Lactic Acid Q4H
Comment: CANCEL 2nd LACTIC ACID IF 1st LACTIC ACID IS LESS THAN 2
Procalcitonin Urgent
If negative, will antibiotics be d/c'd or not started: Yes
Does the patient have renal or hepatic impairment?: No
Any recent (w/in 48 hrs) physiologic stress (CPR, rhabdo): No
09/29/25 17:33
* Blood Bank Products Stat
Dr's Orders: 1 unit prbc
Blood Bank Products: *Packed RBC Leuko (PRBC's
Quantity: 1
Transfuse Today: Yes
Reason: Bleeding
09/29/25 17:35
Type And Crossmatch [Type+Screen] Stat
09/29/25 17:39
Emergent Blood Release Stat
Blood Bank Products: *Packed RBC Leuko(PRBC's)
Quantity: 2
Reason: Bleeding
A Blood Permit is Required for all Blood.
FOR LAB PICKUP:
Take order sheet to Blood Bank to picking tech blood products in validated cooler
Immediately return to patient care area.
Blood products released by
Blood Products picked up by
Sent to
Date and Time
09/29/25 17:47
0.9% Sodium Chloride 1000 ml [Nss] 1,000 ml IV BOLUS
09/29/25 17:54
* Blood Bank Products Routine
Blood Bank Products: *Packed RBC Leuko (PRBC's
Quantity: 2
Transfuse Today: Hold Periop CT Surgery
Is product needed for scheduled surgery?: Yes
Expected Surgery Date: TODAY
Reason: Other
Other reason: cardiothoracic surgery
* Blood Bank Products Routine
Blood Bank Products: *Plt Single Donor Leuko
Quantity: 1
Transfuse Today: Hold Periop CT Surgery
Is product needed for scheduled surgery?: Yes
Expected Surgery Date: TODAY
Reason: Other
Other reason: cardiothoracic surgery
Mupirocin [Bactroban 2% Ointment] See Dose Instructions NASAL ONCE ONE
Activity As Directed
Activity Level: As Tolerated
Blood Pressure Bilateral Upper Extremities As Directed
Instructions:: If not already done, obtain and record bilateral upper extremity BP
Notify physician/PA/TUBE HANDLER:: notify cardiac surgery PA, TUBE HANDLER, or MD of a 20 mmHg or greater difference
Blood Pressure LEFT Upper Extremity ONCE
Blood Pressure RIGHT Upper Extremity ONCE
Notify MD As Directed
Notify physician if: Contact physician if patient has received any of the following agents within the previous
5 days:
Warfarin (Coumadin) Clopidogrel (Plavix)
Dabigatran (Pradaxa) Ticagrelor (Brillinta)
Rivaroxiban (Xarelto) Prasugrel (Effient)
Apixaban (Eliquis) Cilostazol (Pletal)
Enoxaparin (Lovenox) Pentoxifylline (Trental)
Edoxaban (Savaysa) Dipyridamole/Aspirin (Aggrenox)
Notify MD As Directed
Notify physician if: patient received or is scheduled/ordered to receive within 24 hours prior to surgery any:
- angiotension converting enzyme (ARABELLA) inhibitors
- angiotension receptor blockers (ARB)
including combination products containing one of these agents.
OR/Surgery Prep As Directed
Type of Prep: shower or bathe patient with 4% CHG night before surgery.
Comment: DOS: cleanse pt with 2% CHG wipes. Complete clip/prep for scheduled surgery
Patient Education As Directed
Type: [facility]
Comment: pre-operative teaching. Give patient/family [facility] education material
Patient scheduled for CT Surgery As Directed
Type of surgery: redo sternotomy
Date of scheduled surgery: 09/29/25
Discontinue Heparin drip if ordered: call center supervisor to OR
Weight As Directed
Frequency: Once
Comment: record patient's height and weight
09/29/25 18:00
CeFAZolin 2 GRAM [Ancef] 2 grams in 10 ml IV Q1H
09/29/25 18:05
VTE Contraindication Routine
VTE Mechanical Device Contraindication: Surgical Contraindication
Pharmocologic Contraindication: Medical Contraindication
Fentanyl Citrate/Pf [Sublimaze] 100 mcg .ROUTE .STK-MED ONE
PRN Pain Medication Management As Directed
May give lesser potent ordered pain med per pt: Yes
preference::
Protocol:: Medication orders for pain may be administered in a
manner that supports deferring to patient preference
when the pt is:
- Requesting an ordered lesser potent pain medication.
Least to most potent pain medications are defined
as: acetaminophen < NSAID < tramadol < opioids
(morphine, oxycodone, hydromorphone).
- Requesting a lesser dose of the same medication IF
ORDERED.
- Requesting a less intrusive route of administration
if both routes are prescribed by the provider (PO <
IV).
09/29/25 18:08
Fentanyl Citrate/Pf [Sublimaze] 50 mcg IV NOW STA
09/29/25 18:09
Emergent Blood Release Stat
Blood Bank Products: *Packed RBC Leuko(PRBC's)
Quantity: 2
Reason: Bleeding
A Blood Permit is Required for all Blood.
FOR LAB PICKUP:
Take order sheet to Blood Bank to picking tech blood products in validated cooler
Immediately return to patient care area.
Blood products released by
Blood Products picked up by
Sent to
Date and Time
09/29/25 18:28
Heparin 1000 Units/500 ml [Heparin] 1,000 units in 500 ml .ROUTE .STK-MED
Heparin Sodium,Porcine/Ns/Pf [Heparin 2000 Units/1000 ml] 2,000 unit in 1,000 ml .ROUTE .STK-MED
09/29/25 18:37
Ketamine 5 ml .ROUTE .STK-MED
09/29/25 18:41
Lidocaine HCl/Pf [Xylocaine-Mpf 1% Vial] 100 mg .ROUTE .STK-MED ONE
09/29/25 21:33
Lactic Acid Q4H
Comment: CANCEL 2nd LACTIC ACID IF 1st LACTIC ACID IS LESS THAN 2
09/30/25 06:00
Admit Patient As Directed
Co-Sign Provider:
Level of Care: Inpatient admission
Assign to:: CVICU
Physician / Group: Chun Cartagena
Diagnosis: Mediastinal hemmorhage
Reason for Hospitalization: Redo sternotmy/mediastinal exploration
Expected length of stay greater than two midnights?: Yes
ELOS- Estimated Length of Stay in days: 3
I certify the patient meets the requirements for IP care: Yes
NPO
Allow oral meds: No
Allow clear liquids: No
Abnormal Lab Results
09/29/25 09/29/25
16:25 17:35
WBC 30.1 H 10^3/uL
(4.8-10.8)
RBC 2.76 L 10^6/uL
(4.70-6.10)
Hgb 8.6 L g/dL
(13.0-18.0)
Hct 27.1 L %
(39.0-52.0)
MCV 98.2 H fL
(80.0-94.0)
MCH 31.2 H pg
(27.0-31.0)
MCHC 31.7 L g/dL
(33.0-37.0)
RDW 15.4 H %
(11.5-14.5)
MPV 10.9 H fL
(7.4-10.4)
Abs Immat Gran (auto) 0.2 H 10^3/uL
(0-0.05)
Absolute Neuts (auto) 16.9 H 10^3/uL
(1.4-6.5)
Absolute Lymphs (auto) 11.2 H 10^3/uL
(1.2-3.4)
Absolute Monos (auto) 1.5 H 10^3/uL
(0.1-0.6)
Immature Gran % 0.7 H %
(0-0.5)
PT 15.9 H Sec
(11.4-14.6)
Potassium 3.4 L mmol/L
(3.5-5.1)
BUN 23 H mg/dl
(9-20)
Creatinine 1.4 H mg/dL
(0.7-1.3)
Glucose 147 H mg/dl
(70-99)
Troponin I 0.065 H* ng/ml
Total Protein 5.3 L g/dl
(6.3-8.2)
Albumin 3.0 L g/dl
(3.5-5.0)
Crossmatch IS Only See Detail
09/29/25 16:25
09/29/25 16:25
Vital Signs
Initial and Last Documented VS:
Initial Vital Signs
Temp Pulse Resp BP Pulse Ox
97.5 F 97 25 77/58 95
09/29/25 16:16 09/29/25 16:16 09/29/25 16:16 09/29/25 16:16 09/29/25 16:16
Last Documented Vital Signs
Temp Pulse Resp BP Pulse Ox
97.6 F 94 14 83/67 98
09/29/25 22:00 09/29/25 23:00 09/29/25 23:00 09/29/25 22:00 09/29/25 22:37
*Pulse Oximetry
SaO2: 95
Oxygen Mode of Delivery: Room air
Patient hypoxic: no
*Critical Care Note
Total Time (30-74mins, 75-104mins- exclusive of procedures): 60
comment:
Critical care statement: A total of 60 minutes of critical care time was provided for this patient. This includes management of unstable vital signs, evaluation of the patient at bedside, reviewing the patient's pertinent medical records, discussion
with consultants, review of old EKGs and review of pertinent medical records. This time with separate from time utilized to perform the aforementioned documented procedures
ED Attending Note
-
Portions of this chart may have been created with voice recognition software.� Occasional wrong word or��sound alike� substitutions may have occurred due to the inherent limitations of voice recognition software.
Discharge Plan
Departure
Patient Disposition: Admit
Date of Disposition: 09/29/25
Time of Disposition: 17:22
Admit to: OR
Presentation/result/management discussed w/ accepting MD/DO: Dr. Cartagena, CT surgery
Patient with high blood pressure during this ER visit?: No
Condition: Serious
Discharge Problem:
Pleural effusion on left, Pericardial effusion after operative procedure
Interventions
Interventions:
*Risk Screen - Suicide Last Done: 09/29/25 16:36
*General Assessment Last Done: 09/29/25 16:36
*Neglect/Abuse Screening Last Done: 09/29/25 16:36
*ED- Fall Risk Assessment Last Done: 09/29/25 16:36
*ED COVID-19 Vaccine History Last Done: 09/29/25 16:36
*ED Influenza Vaccine History Last Done: 09/29/25 16:36
*Nursing Disposition Last Done: 09/29/25 18:15
ED- Neurological Assessment Last Done: 09/29/25 16:36
ED- Cardiac Assessment Last Done: 09/29/25 16:36
Discharge Date and Time
Discharge Date/Time: 09/29/25 18:15
[2025-09-29 16:38] LABS: Hematocrit 27.1 % (39.0-52.0); Hemoglobin 8.6 g/dL (13.0-18.0); Mean Corp Hgb Conc. 31.7 g/dL (33.0-37.0); Mean Corpuscular Volume 98.2 fL (80.0-94.0); Nucleated Red Blood Cells % 0 % (-); Platelet Count 357 10^3/uL (130-400); Red Cell Dist. Width 15.4 % (11.5-14.5)
[2025-09-29 16:48] LABS: INR 1.24; PT 15.9 Sec (11.4-14.6)
[2025-09-29 16:49] LABS: APTT 27.2 Sec (23.4-35.0)
[2025-09-29 16:54] LABS: ALT (SGPT) 27 U/L (0-50); AST (SGOT) 33 U/L (17-59); Albumin 3.0 g/dl (3.5-5.0); Alkaline Phosphatase 111 U/L (38-126); Blood Urea Nitrogen 23 mg/dl (9-20); Calcium 8.5 mg/dl (8.4-10.2); Chloride 100 mmol/L (98-107); Estimated Creatinine Clearance 39 ml/min; Glucose 147 mg/dl (70-99); Potassium 3.4 mmol/L (3.5-5.1); Sodium 136 mmol/L (135-145); Total Protein 5.3 g/dl (6.3-8.2); eGFR 50.18
[2025-09-29 17:03] LABS: Carbon Dioxide 30 mmol/L (22-30)
[2025-09-29 17:22] LABS: Troponin I 0.065 ng/ml
[2025-09-29] MEDS: LEVOPHED 250 IV ×2 (17:35→21:11)
[2025-09-29] MEDS: SUBLIMAZE 50 MCG IV (18:08)
[2025-09-29 18:11] LABS: Procalcitonin < 0.05 ng/ml (0.0-0.25)
--- NOTE | 2025-09-29 18:15 | EDRN ---
Per Dr Chun Cartagena verbal order at the patients bedside, the pt is to go up to the cath lab radiology technician now. Cardiology Dr Brennan is also present at the pts bedside.
--- NOTE | 2025-09-29 18:16 | EDRN ---
Dr Chun Cartagena accompanied this patient (along multiple ER RNs) to go from the ER up to [facility] room 1 at this time.
[2025-09-29 19:32] LABS: B.E. 0.9 mmol/L; HCO3 25.1 mmol/L (21-28); O2 Saturation % 100.0 % (94-98); PCO2 37 mmHg (35-48); PO2 229 mmHg (83-108)
--- NOTE | 2025-09-29 19:38 | ITS.CL.CATH ---
Supervisor Extruding Department - Catheterization
Cardiac Catheterization
Procedure Report:
LEFT HEART CATHETERIZATION
Date of Procedure: September 29, 2025
Procedures performed:
1: Coronary angiography
2: ntricular hemodynamic assessment
3: Left internal mammary artery and saphenous vein bypass graft angiography.
4: Aortic arch angiography in multiple projections
Primary Care Physician: Dr. Melody Varghese
Primary Tire Maintenance Technician: Dr. Kemal Paez
INDICATION: The patient is an 80-year-old man with a past medical history significant for recent coronary artery bypass graft surgery approximately 2 weeks ago who presented with weakness and was found to have a large left pleural effusion. This
was noted on chest CT and ultimately CT surgeon Dr. Cartagena came to the ER and performed urgent pleurocentesis draining over 2.5 L of blood from the left chest. The concern was for possible late bleed at anastomotic site. Of note, the patient had a
Impella 5.5 coming out of the operating room as part of the plan for the surgery with a direct temporary graft anastomosis to the aorta that was later ligated without acute complication. In light of his significant bleed and ongoing hemodynamic
instability we elected to perform urgent coronary and bypass graft angiography in an effort to identify the source of late postop bleeding. He was electively intubated on the Table at the beginning of the procedure. He was on titrating doses of
Levophed to keep a mean arterial pressure of 60 mmHg.
ACCESS: The patient was prepped and draped in usual sterile fashion. A 6 Anguillan sheath was placed in the right common femoral artery using the Seldinger over the wire technique.
HEMODYNAMIC FINDINGS (mmHg):
Ao(s/d,m): 95/50, 65
ANGIOGRAPHIC FINDINGS:
Single-plane Left Ventriculography in THOMASON Projection: Not done
Coronary Angiography:
Dominance: Right.
Left Main: Short, patent.
Left Anterior Descending: The left anterior descending artery has extensive prior stenting with severe in-stent restenosis at the most distal stent and competitive flow from the distally patent VASQUEZ graft. 2 small to medium caliber diagonal
branches are patent with moderate diffuse luminal irregularities and normal flow.
Left Circumflex: The left circumflex is a medium caliber nondominant system that gives rise to 2 large distal OM's. Competitive flow is noted in the larger distal OM from the patent SVG. The proximal circumflex is not well-visualized due to
vascular overlap in these 2 views however there does not appear to be clear proximal obstructive disease. There is clearly normal flow in the distal patent vessels.
Right Coronary: The right coronary artery is a small caliber but technically dominant vessel that gives rise to a small caliber posterior descending artery. There is a smooth distal 60-70% stenosis in the AV groove with competitive flow in the
distal PDA from the patent vein graft.
VASQUEZ to LAD: The graft is widely patent as is the anastomosis to the distal LAD with normal flow in the apical LAD. There is a vein graft that comes off the VASQUEZ and has a [id number] anastomosis with a relatively small high diagonal branch. The
graft then continues to anastomosed in an end to side fashion with the distal large OM. The graft itself has normal proximal flow and is widely patent as is the proximal anastomosis. Beyond that jump there appears to be a valve with typical
turbulent distal flow abnormality and dye hang up in the distal portion of the graft due to competitive flow from the [place] antegrade circumflex flow.
SVG to mid posterior descending artery: Widely patent.
Other angiography:
1: Aortic arch angiography: This was performed in both SERBIAN and THOMASON projections. There was no clear extravasation of contrast noted on careful examination in these views.
Fluoroscopy Time (min): 8.7
Radiation Dose (mGy): 1231
DAP (Gy.cm2): 109
Closure device: None. A TR band was applied for hemostasis at the right wrist.
Complications: None.
ASSESSMENT:
1: Widely patent grafts with no obvious source of bleeding.
2: Unremarkable aortogram in SERBIAN and THOMASON projections with no obvious source of bleeding.
CONCLUSIONS and RECOMMENDATIONS:
1: Admit to CVICU for ongoing monitoring and critical care.
2: Case discussed at length with Dr. Cartagena and the patient's .
3: Hold dual antiplatelet therapy at this time and obviously watch serial H&H closely. Plan to keep intubated overnight.
Kori Alcazar M.D.
[2025-09-29 19:39] LABS: Hematocrit 22.4 % (39.0-52.0); Hemoglobin 7.6 g/dL (13.0-18.0); Mean Corp Hgb Conc. 33.9 g/dL (33.0-37.0); Mean Corpuscular Volume 92.2 fL (80.0-94.0); Nucleated Red Blood Cells % 0 % (-); Platelet Count 251 10^3/uL (130-400); Red Cell Dist. Width 15.1 % (11.5-14.5)
--- NOTE | 2025-09-29 19:58 | HPS.HSE ---
Family Physician
-
Family Physician: Melody Varghese
Chief Complaint
-
Dizziness, near syncope
History of Present Illness
80-year-old male with known history of chronic systolic heart failure with reduced EF, HTN, hyperlipidemia, BPH, CLL with chronic leukocytosis & thrombocytopenia who underwent an uncomplicated CABG x 4 with planned placement of a central Impella 5.5
on 09/17/25. Patient was transferred to CVICU postoperatively on Dobutrex at 5, he extubated later that afternoon without incident. Impella was on P5. Amiodarone drip was started for bigeminy with related hypotension. 1 pack of platelets
transfused for acute on chronic thrombocytopenia. On postop day 1 Entresto was started for his ischemic cardiomyopathy and Cardene was weaned off, Impella weaned to P4. Postop day 2 he received 1 more pack of platelets for acute thrombocytopenia.
Impella was discontinued at bedside by Drs. Resendez and Karen without incident. Dobutamine was slowly weaned over the next 2 days creatinine gradually normalized and diuretics have been increased with good response. Patient is discharged to home
with visiting nurse and home physical therapy on POD# 7.
He presented to the ED today with complaints of dizziness and near syncope in which his had to assist him from the floor to sitting. Denies falling or injury. Upon presentation in the ED he was noted to be hypotensive and fluid and Levophed
were started. This slowly increased his BP. CXR revealed large left pleural effusion and concern for a widened mediastinum. He was taken for CTA which revealed no dissection, however there was dye extravasation from the posterior aspect of the
heart. A pigtail catheter was inserted into his left hemithorax and liberated a large amount of blood. Dr. Cartagena reveiwed the CT and spoke with radiology and cardiology. It was felt that the patient needed to be evaluated in the soap slabber.
Medical History
Past Medical History
Past Medical History: Reports CAD, CHF, HTN and Hypercholesterolemia
Additional Past Medical History:
CLL, SYDNI, BPH
Past Surgical History: Reports Cardiac
Social History
Tobacco: Former Smoker
Alcohol: Occasional
Drug: None
Personal:
Living: With Family
Family History
Family History: Not pertinent
Allergies / Home Medications
Allergies reflects when Allergies were last updated in [email or web address].
Home Medications with original date entered in [email or web address]
Allergy/Medication List:
ticlopidine-myalgias
meperidine, nausea
Review of Systems
-
History Source: Patient and Family
Constitutional: Denies Fever or Chills
EENT: Denies Sore Throat or Runny Nose
Respiratory: Reports Cough
Cardiac: Denies Chest Pain
Abdomen/GI: Reports No Symptoms
: Reports No Symptoms
Musculoskeletal: Reports Joint Pain
Neurological: Reports Dizzy and Weakness
Endocrine: Reports No Symptoms
Physical Exam
Vital Signs
Vital Signs
Temp Pulse Resp BP Pulse Ox
97.5 F 102 27 114/65 97
09/29/25 16:16 09/29/25 18:15 09/29/25 18:15 09/29/25 18:15 09/29/25 17:49
Physical Exam
General: Respiratory Distress; No Fever or Chills
HEENT: Anicteric and PERRLA
Respiratory: Decreased Breath Sounds (left hemithorax)
Cardiac: Regular Rhythm and Peripheral Edema
GI: Non Tender and Non Distended
Rectal: Deferred by Provider
Genito-urinary: Deferred by me
Musculoskeletal: Edema, Left Lower Extremity and Edema, Right Lower Extremity
Skin: Other (sternal incision c/d/i, b/l saphenectomy incisions c/d/i)
Neuro: AO x 3
Laboratory Results
-
09/29/25 19:29
09/29/25 16:25
Laboratory Results
PT 15.9 Sec (11.4-14.6) H 09/29/25 16:
INR 1.24 09/29/25 16:25
APTT 27.2 Sec (23.4-35.0) 09/29/25 16:
pH 7.44 (7.35-7.45) 09/29/25:
pCO2 37 mmHg (35-48) 09/29/25 19:
pO2 229 mmHg (83-108) H 09/29/25:
HCO3 25.1 mmol/L (21-28) 09/29/25
Lactic Acid 1.2 mmol/L (0.7-2.0) 09/29/25
Total Bilirubin 1.1 mg/dl (0.2-1.3) 09/29/25 16
AST 33 U/L (17-59) 09/29/25 16:
ALT 27 U/L (0-50) 09/29/25 16:
Alkaline Phosphatase 111 U/L (38-126) 09/29/25 16:25
Troponin I 0.065 ng/ml H* 09/29/25 16:25
Data Reviewed
-
Diagnostic Radiology: Image Personally Visualized and interpreted, Discussed with Physician and Discussed with Patient
CT Scan: Image Personally Visualized and interpreted, Discussed with Physician and Discussed with Patient
Lab Data: Labs Reviewed by me
Impression/Plan
-
IMPRESSION:
-left hemothorax
-CTA chest with extravasation of dye near posterior aspect of heart
-s/p CABG
-chronic systolic heart failure with reduced EF
-hypertension
-hyperlipidemia
-enlarged prostate
-hx cataracts
-CLL with chronic leukocytosis & thrombocytopenia
PLAN:
-left pigtail catheter placement
-emergently taken to cardiac soap slabber to evaluate area of bleeding.
--- NOTE | 2025-09-29 20:10 | PTCARENOTE ---
pt received from labor specialist into 2262. Pt intubated and sedated. Pt sinus tachy per tele monitor HR 100s. +pulses. +1 b/l LE edema noted. ET tube 8.0/ 25 @ the lip. Vent settings: A/C 14/500/8/40%. pox 95-100% lungs diminished anteriorly. L pleural CT
w/ increased drainage. CTPA and Dr. Cartagena made aware. no air leak/crepitus/tidaling. hypoactive bs. Kee draining clear yellow urine. R groin puncture dressing c/d/i, PIV x3 intact. R radial a-line leveled, zeroed, and flushed. See worklist and MAR
for full nursing assessment, interventions and gtts running.
[2025-09-29 20:14] LABS: B.E. - POC 0.3 mmol/L; Blood Urea Nitrogen - POC 20 mg/dl (3-120); Chloride - POC 103 mmol/L (96-111); Creatinine - POC 1.29 mg/dl (0.3-1.0); Glucose - POC 172 mg/dl (70-99); HCO3 - POC 26 mmol/L (21-28); Hematocrit - POC 26 % PCV (42-52); Hemodilution- POC No; Hemoglobin Calculated - POC 8.9; Ionized Calcium - POC 1.20 mmol/L (1.15-1.33); Lactate - POC 0.93 mmol/L (0.36-0.75); O2 Saturation %Calculated-POC 99.9 % (94-98); PCO2 - POC 47 mmHg (35-48); PO2 - POC 372 mmHg (83-108); Potassium - POC 3.6 mmol/L (3.5-5.1); Sodium - POC 141 mmol/L (136-145); Specimen Type - POC Arterial; pH - POC 7.35 (7.35-7.45)
[2025-09-29] MEDS: DOBUTREX 250 IV (21:10)
[2025-09-29] MEDS: NovoSeven RT (RECOMBINANT) 3 MG IV ×2 (21:10)
[2025-09-29] MEDS: DIPRIVAN 100 IV (21:11)
[2025-09-29] MEDS: CARDENE 200 IV (21:12)
[2025-09-29] MEDS: KCL 270 MEQ IV (21:46)
--- NOTE | 2025-09-29 21:50 | PTCARENOTE ---
1 unit of PRBCs and 1 unit of plts infused w/o incident. factor [address] output.
[2025-09-29 22:00] LABS: Triglycerides 84 mg/dl (10-149)
[2025-09-29 22:12] LABS: INR 0.73; PT 10.6 Sec (11.4-14.6)
[2025-09-29 22:13] LABS: APTT 32.3 Sec (23.4-35.0)
[2025-09-29 22:22] LABS: Hematocrit 29.2 % (39.0-52.0); Hemoglobin 9.5 g/dL (13.0-18.0); Mean Corp Hgb Conc. 32.5 g/dL (33.0-37.0); Mean Corpuscular Volume 92.1 fL (80.0-94.0); Platelet Count 315 10^3/uL (130-400); Red Cell Dist. Width 16.2 % (11.5-14.5)
[2025-09-29 22:51] LABS: Fibrinogen 231 MG/DL (199-459)
--- NOTE | 2025-09-29 23:00 | PTCARENOTE ---
Dr. Mitzi PECK and CVOR team at bedside to transport pt to CVOR.
[2025-09-30] VITALS (15 sets, daily range): BP systolic 59–132; BP diastolic 49–73; BMI 29.2
[2025-09-30 02:04] LABS: B.E. - POC -4.4 mmol/L; Glucose - POC 219 mg/dl (70-99); HCO3 - POC 23 mmol/L (21-28); Hematocrit - POC 28 % PCV (42-52); Hemodilution- POC Yes; Hemoglobin Calculated - POC 9.6; Ionized Calcium - POC 1.30 mmol/L (1.15-1.33); Lactate - POC 2.41 mmol/L (0.36-0.75); O2 Saturation %Calculated-POC 99.6 % (94-98); PCO2 - POC 49 mmHg (35-48); PO2 - POC 203 mmHg (83-108); Potassium - POC 4.1 mmol/L (3.5-5.1); Sodium - POC 137 mmol/L (136-145); Specimen Type - POC Arterial; pH - POC 7.27 (7.35-7.45)
--- NOTE | 2025-09-30 02:34 | W.PN.CT.SURG ---
CT Surgery Operative Note
-
CARDIAC SURGERY OPERATIVE REPORT
Preoperative Diagnosis: Delayed hemorrhage 12 days post cardiac surgery
Postoperative Diagnosis: Same
Procedure(s) Performed:
1. Redo sternotomy
2. Washout and evacuation of approximately 1.5 L of clot from the left chest
3. Mediastinal packing and sequential evaluation of surgical sites
4. Ligation of mammary vein and distal mammary stump
5. Thorough evaluation of all bypass grafts
6. Ligation of large vein towards the neck
7. Chest closure
Date of Surgery: 09/30/25
Comorbidities:
1. Recent CABG surgery with MCS
2. Ischemic cardiomyopathy with EF of 35%
3. Significant pleural effusion with respiratory failure
4. Hemorrhagic shock, acute blood loss anemia
5. Chronic lymphocytic leukemia with elevated white count
6. Thrombocytopenia
7. Multivessel coronary artery disease
Attending Surgeon: Chun Cartagena MD, MS
Assistants: Bertha Martínez PA-C (present and necessary to coding assistant, retraction, suction, exposure, suture management, and wound closure under my direction)
Anesthesiology: Bobby Ramos MD and Anali Galvin CRNA
Scrub and Circulating RNs: Madelin Pantoja RN, Frandy Jaimes RN
Sales Representative [employer]: Alexis Donohue CCP
Anesthesia: GETA
EBL: 3.5L total
Products: 3 PRBCS intraop and 1 plt
Indication(s) for Procedures: This is an 80-year-old male who is well-known to me. He was recently discharged 5 days ago after undergoing high risk CABG for low EF as well as preoperative 5.5 direct aortic Impella placement. He progressed nicely
through his index surgery was discharged from the hospital approximately 5 days ago to home as he refused rehab. Approximately 12 hours before presenting to the emergency department he was feeling lightheaded, very weak with syncopal episodes. His
describes that he has been coughing quite a bit and just did not look right on Tuesday and so she brought him to the emergency department. In the emergency department he was found to have a significant pleural effusion and a CT angiogram of the
chest that demonstrated contrast extravasation and pooling in the posterior pericardium. There was high concern for bleeding from one of the grafts as there was active extravasation described by radiology and also look convincing to my personal
review. I initially sent him to the Caption Writer for evaluation and no obvious extravasation was identified after she was in the mammary, the vein graft off the mammary, and the vein graft to the RPDA. An aortogram was also done to see there is any
extravasation from his previous stump site for his Impella graft. None was observed. At this point the bleeding had slowed down and so plan was to bring him back to the CVICU/rotation and observation. While in the CVICU he bled approximately 700
cc in a span of 2.5 hours and so the decision was made to bring him back to the operating room emergently for exploration. Consent was verbally obtained from the spouse as he was already intubated. This was deemed medically necessary and
lifesaving.
Findings: Upon entry into the chest and removal of all his previous Thora wires, there was some loose adhesions to the posterior table. There is also thin serous anterior pericardial effusion. Once we were able to free of these loose adhesions,
there is obvious fresh blood that was seen mostly towards the left pericardium between the lung and the pericardium at the site where the mammary traversed. There is also blood welling up from the base of the heart. I then packed the neck as well
as the lower portion of the incision and around the vein graft and mammary after freeing it up gently from local structures. At this point I turned my attention to clearing out the blood from his left chest. A significant amount of hematoma was
extracted and the chest was thoroughly cleared out. There is no bleeding from his previous chest tube placed in the emergency department. I then surveyed the mammary bed and placed a lap pad here to see if anything would wick. I turned my
attention back into the pericardial well and then traced the VASQUEZ graft down to its distal anastomosis and the T graft of the vein was also in evaluated and freed it off of the heart. No active bleeding was observed here. I then looked at the
first touchdown anastomosis which was also intact and hemostatic. The back of the heart was already freed up as there was an effusion back there and with placing a lap pad behind the heart and elevating it and pulling it towards me, I was able to
survey the vein graft to the OM which was under no tension and had no active bleeding. The RPDA graft was also evaluated off the ascending thoracic aorta and found to have no bleeding. The stump of the previous 10 mm graft for the 5.5 direct
aortic Impella was evaluated and the base appeared to be intact with no active bleeding. There was some bleeding from a vein that traversed the upper portion of the neck this is likely due to tension and traction resulting in it tearing and so
multiple large clips were placed here with hemostatic effect. I then looked back towards the left chest and there was some newer blood welling up around the base of the lung and the hilum. Looking up at the anterior chest wall there was some
dripping at the previous stump that was doubly ligated. There is also some weeping and drippage from the mammary vein which was very fragile. Multiple clips were placed here and I traced the mammary vein back towards the proximal end and and freed
it off of the mammary artery and clipped it multiple times here. Of note the vein was quit friable and bled easily with just gentle manipulation. The mammary bed was then cauterized extensively. I turned my attention back towards pericardial well
one more time and did another round of packing and found no significant wicking or bleeding. At this point my conclusion was that he had been bleeding from the mammary bed as the most likely source. Fibrillar was used to place around the mammary
artery back to its origin in the neck at the previous vein sites and then a layer of fibrillar was placed along the mammary bed. New 24 Serbian Alejandro's were placed with 2 in the mediastinum and 1 in each hemithorax and the original Orion Cook
catheter was left in place. The chest was then close in the usual fashion with 4#7 single and 3 #8 double stainless steel wires. Fascia was approximated with #1 vicryl suture. The subcutaneous, dermis and epidermis were closed in layers in a
running fashion. The skin wound was cleansed and dressed. Additional reinforcement maria g were placed intermittently along the wound. The chest is was observed for approximately 15 to 20 minutes and there is no significant output.
All instrument, sponge, and needle counts were confirmed to be correct x 2 at the end of the operation. The patient was transferred to the cardiac intensive care unit in critical but stable condition.
I, Dr. Chun Cartagena, was present, scrubbed for, and performed all critical elements of this procedure.
Chun Cartagena MD, MS
Cardiothoracic Surgeon
[facility]
This operative dictation was created using the [employer] dictation system. Please excuse any grammatical, typographical, or 'sound alike' errors
[2025-09-30] MEDS: LEVOPHED 250 IV (02:42)
--- NOTE | 2025-09-30 02:48 | CON.CAR ---
Consultation
Consultation Request
Date/Time Consultation Requested: 09/29/25
Date/Time Consultation Performed: 09/29/25 at 4:40pm (late entry)
Requesting Provider: Dr. Nash
Performing Provider: Dr. Corrigan
Reason for Consultation: near syncope /hypotension post CABG
Medical History
-
Chief Complaint: near syncope with falls/weakness/SOB
History of Present Illness:
I had the pleasure to meet Eyad Hackett along with his Harriet in ER bed 17 for evaluation of hypotension and several episodes of near syncope with falls and shortness of breath status post recent CABG x [address] Cartagena on September 17, 2025. He
is followed by Dr. Paez with [facility]. Reg has a history of ischemic cardiomyopathy with an ejection fraction 15% and known multivessel coronary artery disease who had a recent positive stress test and subsequent left heart catheterization
demonstrating multivessel coronary disease referred for CABG. Additionally, he has a history of hypertension, hyperlipidemia, BPH with urinary retention, CLL with chronic thrombocytopenia, and sleep apnea.
.
He was admitted electively September 15, 2025 and placed on a dobutamine drip and underwent diuresis for optimization prior to elective CABG x 4 [VASQUEZ�LAD, SVG�PDA, SVG�DX�OM] with placement of a 5.5 Impella 09/17/[address] Cartagena; impella was removed
on September 19. A repeat echocardiogram on dobutamine reported an improved ejection fraction around 40%. Postoperative course was complicated by hypotension, acute on chronic renal insufficiency and urinary retention. He was weaned off inotropes,
pressors and midodrine prior to discharge home on September 24. His hospital course was complicated by urinary retention and he was discharged home with a Adler catheter. His discharge medications include aspirin 81 mg daily, Plavix 75 mg daily,
metoprolol succinate 12.5 mg twice daily, Bumex 2 mg daily, Jardiance 10 mg daily.
.
Patient and his states that he has been feeling fine since discharge until this morning. Following breakfast fell felt like he had to go to the bathroom and have a bowel movement however on his way to the restroom with the assistance of his
he became extremely shaky and weak. She was able to get him to the bathroom where he fell to his knees. She denies loss of consciousness or head trauma. He ultimately never had a bowel movement. He had 3 more near-syncopal events with
profound weakness and increasing shortness of breath prompting return to the emergency department. He denies chest pain or pressure. He denies fevers or chills. He denies chest wall or head trauma with falls. In the emergency department he was
noted to be hypotensive with initial blood pressures reportedly 60s and 70s systolic which responded initially to IV fluids. Initial chest x-ray showed widened mediastinum and globular heart with elevated left hemidiaphragm and a new large opacity
in the left hemithorax. Initial twelve-lead EKG was sinus rhythm with PACs and an incomplete left bundle branch block with ST-T wave abnormalities in the inferior lateral leads with prolonged QT at 500 ms not significantly changed from prior study.
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 Initial hemoglobin 8.6, hemoglobin 8.9 on day of discharge September 24. Platelets 357. Sodium 136, potassium 3.4. BUN and creatinine 23/1.4. Creatinine was 1.2
on day of discharge. I within normal limits. Cardiac troponin 0.065. proBNP 4700. Procalcitonin less than 0.05. Lactate 2.
.
Patient was seen and examined with Dr. Cartagena and CT surgery PA as well as ER physician Dr. Nash. Stat CTA of the chest demonstrated new large left pleural effusion and tiny right pleural effusion. There was a pericardial effusion posteriorly
which demonstrated contrast extravasation and pooling raising concern for delayed bleeding from one of the grafts. A chest tube was placed by CT surgery in the emergency room with significant bloody drainage, totaling 2.7 L following urgent cardiac
catheterization. Patient was transported to cardiac cath where he was electively intubated with anesthesia. Interventional cardiology performed emergent coronary angiography and arteriogram with no obvious extravastion identified in grafts or at
site of Impella graft. He was then transported to the CVICU for close monitoring on Levophed having received 3 units packed red blood cells.
PMH:
Elective CABG x 4 [VASQUEZ�LAD, SVG�PDA, SVG�DX�OM] with placement of a 5.5 Impella 09/17/[address] Cartagena
Status post LAD stents 2002, 2005, 2019; Triple-vessel coronary disease including in-stent restenosis of prior LAD stents by cath 08/21/25
Ischemic cardiomyopathy, EF 15 to 2 preop; post op 40%
Chronic heart failure with reduced EF
Mild to moderate MR
Sick sinus syndrome
Hypertension
Hyperlipidemia
SYDNI
Polycythemia vera
Chronic thrombocytopenia
Spinal stenosis
GERD
Depression/anxiety
BPH, Postop urinary retention with Adler catheter
Past Medical History
Past Medical History: Other (See HPI)
Past Surgical History: Other (Reviewed in [facility])
Social History
Tobacco: Non-Smoker
Alcohol: None
Drug: None
Personal:
Living: With Family
Employment: Retired
Family History
Family History: Reviewed & Not Pertinent
Allergies / Home Medications
Allergy/AdvReac Type Severity Reaction Status Date / Time
ticlopidine (From Ticlid) Allergy MYALGIA Verified 09/29/25 16:16
meperidine (From Demerol) AdvReac Nausea Verified 09/29/25 16:16
�Medication �Instructions �Recorded �Confirmed �Type
atorvastatin 40 mg tablet (Lipitor) 40 mg PO HS High Cholesterol 08/30/25 09/17/25 History
cholecalciferol (vitamin D3) 50 50 mcg PO DAILY Supplement 08/30/25 09/15/25 History
mcg (2,000 unit) tablet (Vitamin
D3)
doxazosin 8 mg tablet 8 mg PO HS bph 08/30/25 09/17/25 History
empagliflozin 10 mg tablet 10 mg PO DAILY Heart Failure 08/30/25 09/15/25 History
(Jardiance)
famotidine 40 mg tablet 40 mg PO BID Gastrointestinal Issue 08/30/25 09/15/25 History
finasteride 5 mg tablet 5 mg PO HS bph 08/30/25 09/17/25 History
multivitamin 1 tab PO DAILY Supplement 08/30/25 09/15/25 History
aspirin 81 mg chewable tablet 81 mg PO DAILY Blood clot 09/22/25 Rx
prevention/tx #0 tabs
acetaminophen 325 mg tablet 650 mg (2 x 325 mg) PO Q6HPRN PRN 09/24/25 Rx
mild pain,headache,temp >101F #0
tabs
bumetanide 2 mg tablet 2 mg PO DAILY #10 tabs 09/24/25 Rx
clopidogrel 75 mg tablet 75 mg PO DAILY #30 tabs 09/24/25 Rx
metoprolol succinate 25 mg 12.5 mg (1/2 x 25 mg) PO BID #30 09/24/25 Rx
tablet,extended release 24 hr tabs
potassium chloride 20 mEq 20 meq PO ONCE@2200 take for 10 09/24/25 Rx
tablet,extended days while on bumex #10 tabs
release(part/cryst) (Klor-Con M)
Review of Systems
-
History Source: Patient and Family
Constitutional: Fatigue
EENT: No Symptoms
Respiratory: Trouble Breathing
Cardiac: Syncope (near syncope)
Abdomen/GI: No Symptoms
: No Symptoms and Other (+ adler)
Musculoskeletal: No Symptoms
Skin: No Symptoms
Neurological: Dizzy and Weakness
Hematologic/Lymphatic: No Symptoms
Physical Exam
Vital Signs
Temp Pulse Resp BP Pulse Ox
97.6 F 74 14 83/67 99
09/29/25 22:00 09/30/25 02:15 09/29/25 23:00 09/29/25 22:00 09/30/25 02:15
Lab Results
Troponin I 0.065 ng/ml H* 09/29/25 16:25
Aog-M-Bhmzajxslbi Pept 4700 pg/ml 09/29/25 16:25
Physical Exam
General: Other (Appears acutely ill, pale with increased work of breathing and tachypnea)
HEENT: Normocephalic, Anicteric and Moist Mucous Membranes
Respiratory: Other (Bronchovesicular breath sounds. Decreased breath sounds left greater than right. Bilateral crackles. No wheezes.)
Cardiac: S1/S2 and Regular Rhythm; Negative Murmur or Rub
GI: Soft, Non Tender and Distended
Musculoskeletal: Edema (+ 1-2. Patient and report this is improved compared to discharge on September 24)
Skin: Other (Midline incision, chest tube sites and Impella site intact. Cool distal extremities)
Neuro: AO x 3 and Nonfocal/Grossly Intact
Psych: Calm
Impression / Plan
-
Primary rod filler: Dr. Paez of [facility] [place]
Assessment:
Near syncope, hypotension with Hemorrhagic shock
Delayed post CABG bleeding, source unclear
Left hemothorax status post chest tube
Posterior pericardial effusion with contrast extravasation with concern delayed bleeding graft bleeding not demonstrated via urgent cardiac catheterization
Postop anemia with acute blood loss requiring multiple transfusions
Elective CABG x 4 [VASQUEZ�LAD, SVG�PDA, SVG�DX�OM] with placement of a 5.5 Impella 09/17/[address] Cartagena
Ischemic cardiomyopathy with preoperative ejection fraction 15 to 20% and postoperative ejection fraction 40%
History of BPH with postoperative urinary retention requiring Adler catheter
Hypertension
Hyperlipidemia
SYDNI
Polycythemia vera
CLL with chronic thrombocytopenia
Spinal stenosis
GERD
Depression/anxiety
Plan:
Critically ill 80-year-old gentleman with hemorrhagic shock status post recent CABG with Impella on September 17, 2025.
-Left hemothorax status post chest tube in the ED
-Very limited bedside echocardiogram prior to urgent cardiac catheterization on Levophed demonstrated EF likely 35-40% with a mild-moderate posterior pericardial effusion
-Urgent cardiac catheterization did not demonstrate obvious extravastion from grafts or Impella site.
-Posterior pericardial effusion, stable throughout
-Continue hemodynamic support with pressors and may need to resume inotropes
-Monitor chest tube output
-Support with transfusions and follow H&H closely
-Holding aspirin and Plavix
-Plan to keep intubated overnight
-Repeat 2D echocardiogram in the morning, sooner if needed
-Case discussed at length with Dr. Cartagena and interventional cardiology
- Updated patient's Pat throughout evening events
Time spent with the patient over 4 hours
Data Reviewed
-
EKG: Tracing Personally Visualized and interpreted
Radiology: Report Reviewed by me
CT Scan: Report Reviewed by me
Labs: Labs Reviewed by me
Old Records: Reviewed
--- NOTE | 2025-09-30 02:53 | PTCARENOTE ---
Patient received from [facility] ~` 0230; pt intubated and sedated. NSR/ sinus tachy/ vent bigeminy. +1 DP and radial pulses present; Lungs diminished at bases; ETT size 8 positioned and secured 25 cm at the lip; Ventilator settings A/C 14/500/8 FiO2
40%; CTx5 to -20 cm wall suction draining bloody drainage - no air leak, or crepitus noted; Hypoactive BS; Kee catheter in place draining clear, yellow urine; Sternal incision w aquacell. Right radial A-line in place, [place] Gerald present in [facility]
Cordis at 50 cm - all lines zeroed and leveled; PIVx3 Levo, dobut, propofol infusing - see nursing flowsheets for further details; see nursing documentation for further details.
[2025-09-30 02:59] LABS: B.E. -2.8 mmol/L; HCO3 24.4 mmol/L (21-28); O2 Saturation % 98.8 % (94-98); PCO2 52 mmHg (35-48); PO2 92 mmHg (83-108); Potassium 4.4 mMOL/L (3.5-5.1); Sodium 134 mMOL/L (136-145)
[2025-09-30 03:01] LABS: O2 Therapy 60
[2025-09-30 03:05] LABS: Hematocrit 35.6 % (39.0-52.0); Hemoglobin 11.5 g/dL (13.0-18.0); Platelet Count 223 10^3/uL (130-400)
[2025-09-30 03:14] LABS: APTT 31.1 Sec (23.4-35.0); INR 0.94; PT 12.9 Sec (11.4-14.6)
[2025-09-30 03:22] LABS: Blood Urea Nitrogen 22 mg/dl (9-20); Estimated Creatinine Clearance 46 ml/min; Glucose 195 mg/dl (70-99); Magnesium 1.8 mg/dl (1.6-2.3)
--- NOTE | 2025-09-30 03:27 | W.PN.UPDATE ---
Update Note
Progress Note Update
Upon admission the patient was taken to the laborer chemical processing to evaluate area of bleeding. No extravasation was noted. The patient continued to bleed through the left pigtail catheter so the decision was made to go back to the OR.
The patient underwent Redo sternotomy and evacuation of 1.5L of clot from left hemithorax and anterior mediastinum. A mammary vein was noted to be bleeding and hemostasis achieved. The patient was transfused RBC's and Platelets both pre and
intraoperatively. He was transferred back to the CVICU intubated, on Dobutmine 5 and Levophed 2 at 02:30.
Goal SBP 90-110. If stable can wean and extubate.
[2025-09-30] MEDS: DIPRIVAN 100 IV ×2 (03:29→12:23)
[2025-09-30] MEDS: NSS 500 IV ×2 (03:53→23:32)
[2025-09-30] MEDS: VANCOCIN 200 IV ×2 (03:53→19:48)
[2025-09-30] MEDS: ALBUMIN 5% 250 IV (05:35)
[2025-09-30] MEDS: OFIRMEV 100 IV (05:37)
[2025-09-30 06:08] LABS: Magnesium 1.8 mg/dl (1.6-2.3)
[2025-09-30] MEDS: DILAUDID 0.5 MG IV (06:16)
[2025-09-30] MEDS: CORDARONE 103 MG IV ×2 (06:54→08:24)
[2025-09-30 07:09] LABS: B.E. 4.9 mmol/L; HCO3 29.2 mmol/L (21-28); O2 Saturation % 99.6 % (94-98); PCO2 41 mmHg (35-48); PO2 136 mmHg (83-108)
[2025-09-30 07:15] LABS: Hematocrit 30.8 % (39.0-52.0); Hemoglobin 10.6 g/dL (13.0-18.0); Mean Corp Hgb Conc. 34.4 g/dL (33.0-37.0); Mean Corpuscular Volume 86.5 fL (80.0-94.0); Platelet Count 254 10^3/uL (130-400); Red Cell Dist. Width 16.2 % (11.5-14.5)
[2025-09-30 07:17] LABS: Glucose - Point of Care 194 mg/dl (70-99)
[2025-09-30 07:22] LABS: Fibrinogen 226 MG/DL (199-459)
[2025-09-30 07:22] LABS: B.E. - POC 2.4 mmol/L; Blood Urea Nitrogen - POC 21 mg/dl (3-120); Chloride - POC 105 mmol/L (96-111); Creatinine - POC 1.45 mg/dl (0.3-1.0); Glucose - POC 194 mg/dl (70-99); HCO3 - POC 27 mmol/L (21-28); Hematocrit - POC 25 % PCV (42-52); Hemodilution- POC No; Hemoglobin Calculated - POC 8.6; Ionized Calcium - POC 1.14 mmol/L (1.15-1.33); Lactate - POC 2.98 mmol/L (0.36-0.75); O2 Saturation %Calculated-POC 93.7 % (94-98); PCO2 - POC 40 mmHg (35-48); PO2 - POC 67 mmHg (83-108); Potassium - POC 3.9 mmol/L (3.5-5.1); Sodium - POC 139 mmol/L (136-145); Specimen Type - POC Arterial; pH - POC 7.44 (7.35-7.45)
[2025-09-30 07:23] LABS: APTT 30.8 Sec (23.4-35.0); INR 1.13; PT 14.8 Sec (11.4-14.6)
[2025-09-30] MEDS: CALCIUM GLUCONATE 100 IV (07:26)
[2025-09-30] MEDS: SODIUM BICARBONATE 50 MEQ IV ×2 (07:26)
[2025-09-30 07:36] LABS: ALT (SGPT) 16 U/L (0-50); AST (SGOT) 23 U/L (17-59); Albumin 2.0 g/dl (3.5-5.0); Alkaline Phosphatase 59 U/L (38-126); Blood Urea Nitrogen 24 mg/dl (9-20); Calcium 7.4 mg/dl (8.4-10.2); Carbon Dioxide 31 mmol/L (22-30); Chloride 104 mmol/L (98-107); Estimated Creatinine Clearance 42 ml/min; Glucose 148 mg/dl (70-99); Potassium 4.0 mmol/L (3.5-5.1); Sodium 136 mmol/L (135-145); Total Protein 3.7 g/dl (6.3-8.2); eGFR 54.85
--- NOTE | 2025-09-30 07:55 | W.PN.ANS.POP ---
Anesthesia Post Operative
- Anesthesia Post Op Note
Vital Signs Stable-See Nursing Note: Yes (remains on Levo/ dobutamine/ and amio gtts)
Airway Patent: Yes (remains intubated)
Adequate Pain Control: Yes
Change in Mental Status: No (sedated on propofol)
Current Postoperative Nausea & Vomiting: No
Anesthesia Complications: No
General Anesthetic Recall: No
Unplanned Admission: No
Post Op Hydration Adequate: Yes
[2025-09-30] MEDS: CORDARONE 259 MG IV (08:00)
--- NOTE | 2025-09-30 08:04 | CON.INTV ---
Consultation
Consultation Request
Date/Time Consultation Requested: 09/30/2025
Date/Time Consultation Performed: 09/30/2025
Reason for Consultation: Shock
Medical History
-
Chief Complaint: Dyspnea, near-syncope
History of Present Illness:
Patient is 80 gentleman who is currently intubated, sedated and mechanically ventilated. History mostly obtained from review of medical records as well as discussion with other healthcare team members. Patient was admitted to the hospital earlier
this month due to ischemic cardiomyopathy with ejection fraction 15% multivessel disease for elective coronary artery bypass graft. Patient continued to progress well postop, EF had improved up to 40% was gradually weaned off pressors and was
discharged around September 24. Patient was doing well up until the day of admission where he became weak and shaky, fall as well as a near syncopal. Showed reported with shortness of breath. Workup in the emergency room included chest x-ray which
was concerning for left-sided pleural effusion. This was followed by a CT angiogram which was suggestive of left hemothorax as well as probable active bleeding. Patient was evaluated by cardiothoracic surgery and had a chest tube placed on the
left side with drainage of hemothorax. Patient subsequently had an urgent cardiac catheterization where he was electively intubated and was not noted to have any graft failure or active extravasation. Patient subsequently was taken to the OR and
had a redo sternotomy, ligation of mammary vein and evacuation of hematoma. Subsequently patient was admitted to CVICU. Overnight patient developed atrial fibrillation with rapid ventricular rate with increased pressor requirement. Metal Drill Press Operator
consultation was requested for further input.
PMH:
Elective CABG x 4 [VASQUEZ�LAD, SVG�PDA, SVG�DX�OM] with placement of a 5.5 Impella 09/17/[address] Cartagena
Status post LAD stents 2002, 2005, 2019; Triple-vessel coronary disease including in-stent restenosis of prior LAD stents by cath 08/21/25
Ischemic cardiomyopathy, EF 15 to 2 preop; post op 40%
Chronic heart failure with reduced EF
Mild to moderate MR
Sick sinus syndrome
Hypertension
Hyperlipidemia
SYDNI
Polycythemia vera
Chronic thrombocytopenia
Spinal stenosis
GERD
Depression/anxiety
BPH, Postop urinary retention with Kee catheter
Past Surgical History: Other ([facility]
Social History
Tobacco: Non-Smoker
Alcohol: None
Drug: None
Personal:
Living: With Family
Employment: Retired
Family History
Family History: Reviewed & Not Pertinent
Allergies / Home Medications
Allergies
Allergy/AdvReac Type Severity Reaction Status Date / Time
ticlopidine (From Ticlid) Allergy MYALGIA Verified 09/29/25 16:16
meperidine (From Demerol) AdvReac Nausea Verified 09/29/25 16:16
Home Medications
�Medication �Instructions �Recorded �Confirmed �Last Taken �Type
atorvastatin 40 mg tablet (Lipitor) 40 mg PO HS High Cholesterol 08/30/25 09/17/25 09/16/25 22:53 History
40 mg
cholecalciferol (vitamin D3) 50 50 mcg PO DAILY Supplement 08/30/25 09/15/25 09/09/25 History
mcg (2,000 unit) tablet (Vitamin
D3)
doxazosin 8 mg tablet 8 mg PO HS bph 08/30/25 09/17/25 09/16/25 22:53 History
8 mg
empagliflozin 10 mg tablet 10 mg PO DAILY Heart Failure 08/30/25 09/15/25 09/13/25 History
(Jardiance)
famotidine 40 mg tablet 40 mg PO BID Gastrointestinal Issue 08/30/25 09/15/25 09/15/25 08:00 History
finasteride 5 mg tablet 5 mg PO HS bph 08/30/25 09/17/25 09/16/25 22:54 History
5 mg
multivitamin 1 tab PO DAILY Supplement 08/30/25 09/15/25 09/09/25 History
aspirin 81 mg chewable tablet 81 mg PO DAILY Blood clot 09/22/25 Unknown Rx
prevention/tx #0 tabs
acetaminophen 325 mg tablet 650 mg (2 x 325 mg) PO Q6HPRN PRN 09/24/25 Unknown Rx
mild pain,headache,temp >101F #0
tabs
bumetanide 2 mg tablet 2 mg PO DAILY #10 tabs 09/24/25 Unknown Rx
clopidogrel 75 mg tablet 75 mg PO DAILY #30 tabs 09/24/25 Unknown Rx
metoprolol succinate 25 mg 12.5 mg (1/2 x 25 mg) PO BID #30 09/24/25 Unknown Rx
tablet,extended release 24 hr tabs
potassium chloride 20 mEq 20 meq PO ONCE@2200 take for 10 09/24/25 Unknown Rx
tablet,extended days while on bumex #10 tabs
release(part/cryst) (Klor-Con M)
Review of Systems
-
Unable to Obtain full review of systems at this time due to: Patient Intubation
Vitals / Labs / Diagnostic Testing
Vital Signs
Temp Pulse Resp BP Pulse Ox
97.7 F 116 20 75/49 100
09/30/25 07:00 09/30/25 07:00 09/30/25 07:00 09/30/25 07:00 09/30/25 07:00
Lab Data
09/30/25 06:54
09/30/25 06:54
Laboratory Results
09/29/25 09/29/25 09/29/25
16: 19:29 21:56
PT 15.9 H 10.6 L
INR 1.24 0.73
APTT 27.2 32.3
pH 7.44
pCO2 37
pO2 229 H
HCO3 25.1
O2 Delivery Level Unk
09/30/25 09/30/25 09/30/25
02:46 06:00 06:54
PT 12.9 Cancelled 14.8 H
INR 0.94 Cancelled 1.13
APTT 31.1 Cancelled 30.8
pH 7.28 L 7.46 H
pCO2 52 H 41
pO2 92 136 H
HCO3 24.4 29.2 H
O2 Delivery Level 60
Diagnostic Testing:
Physical Exam
-
HEENT: Normocephalic
Cardiovascular: S1/S2
Respiratory: Clear and Non-Labored Respirations
GI: Soft and Non Distended
Neurology: Other (Sedated with propofol. )
Skin: Warm
General: Comfortable
Assessment
-
80-year-old gentleman with delayed hemorrhage, 12 days post cardiac surgery, s/p redo sternotomy, washout and evacuation of approximately 1.5 L of clot from left chest, ligation of mammary vein and distal mammary stump, ligation of large vein
towards the neck, POD # 1
Titrate off pressors per protocol, currently MAP is 55, Levophed infusing at 8 and dobutamine at 2.5. CVP of 11, current rhythm is atrial fibrillation.
ECHO from 09/23, LVEF 40 to 45%.
PA catheter readings reviewed, , mean of 23, CVP of 11.
Management of chest tubes per primary service. Left-sided pigtail catheter in place, sanguinous output noted in the atrium, no air leak noted.
Intubated/sedated, initiate SAT when able. Currently on propofol infusion
RASS goal of 0 to -1
Intubated for procedure, SBT trial when patient able to spontaneously breath
Current vent settings: Volume AC, 500/16/40%/5.
AB.40 6/41/136.
CXR with left lower lobe atelectasis, chest tubes in place. No pneumothorax noted.
Maintain supplement oxygen as needed
No prior history of pulmonary disease, except for 4 mm nodule in the right lower lobe.
Can add nebulizers if needed
Aspiration precautions
Encouraged incentive spirometry, OOB/ambulation/early mobility
Advance diet as tolerated following extubation
GI prophylaxis: Protonix
Monitor critical I/O's
Kee/chest tube output
Hb/platelets postoperatively stable. S/p PRBC, hemoglobin was as low as 7.6. Most recent 10.6.
Trend CBC for now
Can transfuse if indicated for Hb <7, plt <50 in surgical patients
DVT prophylaxis including SCDs
Other medical diagnoses:
- Acute blood loss anemia due to delayed hemorrhage post CABG, s/p redo sternotomy and evacuation of clot as well as ligation of mammary vein
- Shock, hemorrhagic and suspect concomitant cardiogenic. Cardiac index 1.54, currently on Levophed and dobutamine infusion. Cardiology service on case. CVP is 11. Hemoglobin has been corrected with blood transfusion. Atrial fibrillation also
likely contributing. Most recent EF on bedside echo reportedly 35 to 40%. Repeat echocardiogram pending
- Atrial fibrillation with rapid ventricular rate. Currently on amiodarone infusion. In view of persistent shock, patient might need cardioversion if unable to wean off pressors.
- History of coronary artery disease, s/p coronary artery bypass grafting 09/2025, patent graft as per cardiac catheterization on 09/29.
- Ischemic cardiomyopathy, HFrEF. Await ECHO.
- Hypertension, hyperlipidemia
- History of CLL with chronic thrombocytopenia
- GERD
- Depression/anxiety
- History of SYDNI
- History of BPH
Critical Care time [67] mins -- The patient is admitted for acute critical illness for the treatment of vital organ failure and/or prevention of further life-threatening conditions. Total care includes time spent in review of history, physical exam,
medications, hemodynamic/ventilator parameters, laboratory data, imaging and discussion with house staff, pharmacy, respiratory therapy, leasing machine tender, and nursing
Data:
CXR 09/2025: Interval advancement of the pulmonary artery catheter with tip in appropriate positioning. Stable appearance of the additional support lines and tubes.
Unchanged mild basilar opacities favored to represent atelectasis. No pneumothorax.
CTA Chest 09/2025: New moderate size slightly high attenuation density pericardial effusion especially posteriorly (slight increased density on postcontrast images) with findings suspicious for small volume active bleeding within as detailed above
as well as new moderate size left pleural effusion in comparison to recent prior CTA. Findings discussed by telephone with Dr. aNsh in the emergency department at approximately [address] Cartagena at approximately 1738 hours on September
2024.
Slightly high attenuation density fluid suggested within small volume urinary bladder as well as Kee catheter possibly representing some blood products/proteinaceous material.
Additional nonurgent findings as detailed above, some of which include left lower lobe consolidation, small right pleural effusion, bilateral simple renal cysts and prior cholecystectomy.e
LHC 09/29/2025: 1: Widely patent grafts with no obvious source of bleeding.
2: Unremarkable aortogram in MONGOLIAN and THOMASON projections with no obvious source of bleeding.
ECHO 09/23/2025: 1. Ejection fraction is 40-45% by visual assessment.
2. Normal left ventricular size, wall thickness and systolic function. No regional wall motion abnormalities are seen.
3. Aortic sclerosis with trace aortic regurgitation is seen.
4. Left ventricular wall motion is diffusely hypokinetic.
5. Thickened mitral leaflets with adequate leaflet excursion. Mild mitral annular calcification. Trace mitral regurgitation.
--- NOTE | 2025-09-30 08:30 | PTCARENOTE ---
Assumed care of patient at 0700. Pt is intubated and sedated. Currently pt in Afib with HR 102. BP 106/56 MAP 68. PA 36/22, CVP 13, CO 2.89, CI 1.49, SVR 1494. Temp 97.8. Pt with +1 bilateral lower extremity edema. Posterior tibial pulses present
with Doppler. Pt remains intubated with #8ET tube at 25cm. Vent set to AC 40% FiO2, rate 16, 500, PEEP 5, pressure support 5. Pulse oximetry 99%. Mediastinal chest tubes x2, left/right pleural chest tubes and left lateral chest tubes remain in place
to -20 suction draining red drainage, no signs of air leak or crepitus. Bowel sounds hypoactive. Kee catheter remains in place, Kee care completed. Midsternal incision with post-surgical dressing in place. Right groin puncture approximated and
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 Old bilateral leg incisions approximated and scabbed, NEETA. Right radial Lilly intact. Left IJ swan at 55cm, cordis intact. Pt remains on Levo, Dobutamine, Amio, and propofol.
[2025-09-30] MEDS: ANCEF 10 IV ×4 (09:05→19:42)
[2025-09-30] MEDS: MAGNESIUM SULFATE 100 IV (09:47)
--- NOTE | 2025-09-30 10:08 | W.PN.CARDCBS ---
Today's Communication / Plan
-
Continue postop care
Wean IV pressor therapy as able
Inotropic support with IV dobutamine
Vent wean per protocol
Repeat echo
Monitor H/H
Impression / Plan
-
.
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
Impression:
Near syncope, hypotension with Hemorrhagic shock
Delayed post CABG bleeding, source unclear
Left hemothorax status post chest tube
Posterior pericardial effusion with contrast extravasation with concern delayed bleeding graft bleeding not demonstrated via urgent cardiac catheterization
Postop anemia with acute blood loss requiring multiple transfusions
Elective CABG x 4 [VASQUEZ�LAD, SVG�PDA, SVG�DX�OM] with placement of a 5.5 Impella 09/17/[address] Cartagena
Ischemic cardiomyopathy with preoperative ejection fraction 15 to 20% and postoperative ejection fraction 40%
History of BPH with postoperative urinary retention requiring Kee catheter
Hypertension
Hyperlipidemia
SYDNI
Polycythemia vera
CLL with chronic thrombocytopenia
Spinal stenosis
GERD
Depression/anxiety
Echo Sep 23 2025: EF 40-45% no significant valve disease
Urgent bedside echo very limited Sep 29 2025 as below
Urgent left cath Sep 29 2025: Widely patent grafts with no obvious source of bleeding.
Plan:
Critically ill 80-year-old gentleman with hemorrhagic shock status post recent CABG with Impella on September 17, 2025.
-Left hemothorax status post chest tube in the ED
On Sep 30 early AM, the patient underwent Redo sternotomy and evacuation of 1.5L of clot from left hemithorax and anterior mediastinum. A mammary vein was noted to be bleeding and hemostasis achieved. The patient was transfused RBC's and Platelets
both pre and intraoperatively. He was transferred back to the CVICU intubated, on Dobutmine 5 and Levophed 2 at 02:30.
Continue postoperative care
Wean IV pressor therapy as able including IV Levophed
Continue IV inotropic therapy with Dobutamine as per CT surgery
IV Cardene wean as per CT surgery.
Remains sinus on amiodarone.
Very limited bedside echocardiogram prior to urgent cardiac catheterization on Levophed demonstrated EF likely 35-40% with a mild-moderate posterior pericardial effusion
Repeat echo pending
Cardiac catheterization reviewed.
Monitor H&H and consider transfusion as needed. Dual antiplatelet therapy currently on hold.
CT care as per CT surgery
Wean protocol for VDRF her pulmonary/CT surgery
Discussed with nursing
CCT:30 min
HPI: I had the pleasure to meet Eyad Hackett along with his Harriet in ER bed 17 for evaluation of hypotension and several episodes of near syncope with falls and shortness of breath status post recent CABG x [address] Cartagena on September 17, 2025.
He is followed by Dr. Paez with [facility]. Reg has a history of ischemic cardiomyopathy with an ejection fraction 15% and known multivessel coronary artery disease who had a recent positive stress test and subsequent left heart catheterization
demonstrating multivessel coronary disease referred for CABG. Additionally, he has a history of hypertension, hyperlipidemia, BPH with urinary retention, CLL with chronic thrombocytopenia, and sleep apnea.
.
He was admitted electively September 15, 2025 and placed on a dobutamine drip and underwent diuresis for optimization prior to elective CABG x 4 [VASQUEZ�LAD, SVG�PDA, SVG�DX�OM] with placement of a 5.5 Impella 09/17/[address] Cartagena; impella was removed
on September 19. A repeat echocardiogram on dobutamine reported an improved ejection fraction around 40%. Postoperative course was complicated by hypotension, acute on chronic renal insufficiency and urinary retention. He was weaned off inotropes,
pressors and midodrine prior to discharge home on September 24. His hospital course was complicated by urinary retention and he was discharged home with a Kee catheter. His discharge medications include aspirin 81 mg daily, Plavix 75 mg daily,
metoprolol succinate 12.5 mg twice daily, Bumex 2 mg daily, Jardiance 10 mg daily.
.
Patient and his states that he has been feeling fine since discharge until this morning. Following breakfast fell felt like he had to go to the bathroom and have a bowel movement however on his way to the restroom with the assistance of his
he became extremely shaky and weak. She was able to get him to the bathroom where he fell to his knees. She denies loss of consciousness or head trauma. He ultimately never had a bowel movement. He had 3 more near-syncopal events with
profound weakness and increasing shortness of breath prompting return to the emergency department. He denies chest pain or pressure. He denies fevers or chills. He denies chest wall or head trauma with falls. In the emergency department he was
noted to be hypotensive with initial blood pressures reportedly 60s and 70s systolic which responded initially to IV fluids. Initial chest x-ray showed widened mediastinum and globular heart with elevated left hemidiaphragm and a new large opacity
in the left hemithorax. Initial twelve-lead EKG was sinus rhythm with PACs and an incomplete left bundle branch block with ST-T wave abnormalities in the inferior lateral leads with prolonged QT at 500 ms not significantly changed from prior study.
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 Initial hemoglobin 8.6, hemoglobin 8.9 on day of discharge September 24. Platelets 357. Sodium 136, potassium 3.4. BUN and creatinine 23/1.4. Creatinine was 1.2
on day of discharge. I within normal limits. Cardiac troponin 0.065. proBNP 4700. Procalcitonin less than 0.05. Lactate 2.
.
Patient was seen and examined with Dr. Cartagena and CT surgery PA as well as ER physician Dr. Nash. Stat CTA of the chest demonstrated new large left pleural effusion and tiny right pleural effusion. There was a pericardial effusion posteriorly
which demonstrated contrast extravasation and pooling raising concern for delayed bleeding from one of the grafts. A chest tube was placed by CT surgery in the emergency room with significant bloody drainage, totaling 2.7 L following urgent cardiac
catheterization. Patient was transported to cardiac cath where he was electively intubated with anesthesia. Interventional cardiology performed emergent coronary angiography and arteriogram with no obvious extravastion identified in grafts or at
site of Impella graft. He was then transported to the CVICU for close monitoring on Levophed having received 3 units packed red blood cells.
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
Subjective
Date of Service: September 30, 2025
Patient seen and examined. Intubated
Objective
Labs:
09/30/25 06:54
09/30/25 06:54
Labs
Hgb 10.6 g/dL (13.0-18.0) L 09/30/25 06:54
Hct 30.8 % (39.0-52.0) L 09/30/25 06:54
Plt Count 254 10^3/uL (130-400) 09/30/25 06:54
PT 14.8 Sec (11.4-14.6) H 09/30/25 06:54
INR 1.13 09/30/25 06:54
APTT 30.8 Sec (23.4-35.0) 09/30/25 06:54
Sodium 136 mmol/L (135-145) 09/30/25 06:54
Potassium 4.0 mmol/L (3.5-5.1) 09/30/25 06:54
BUN 24 mg/dl (9-20) H 09/30/25 06:54
Creatinine 1.3 mg/dL (0.7-1.3) 09/30/25 06:54
Glucose 148 mg/dl (70-99) H 09/30/25 06:54
Troponins
09/29/25
16:25
Troponin I 0.065 H*
Vital Signs and I&O:
Vital Signs
Temp Pulse Resp BP Pulse Ox
98.2 F 105 18 86/59 100
09/30/25 09:00 09/30/25 09:00 09/30/25 09:00 09/30/25 09:00 09/30/25 09:25
Vital Signs
Temp Pulse Resp BP Pulse Ox
98.2 F 105 18 86/59 100
09/30/25 09:00 09/30/25 09:00 09/30/25 09:00 09/30/25 09:00 09/30/25 09:25
Intake & Output
09/28/25 09/29/25 09/30/25 10/01/25
06:59 06:59 06:59 06:59
Intake Total 1660.7 / 2004.3 1330.8 / 1330.8
Output Total 3910 / 4060 360 / 360
Balance -2249.3 / -2055.7 970.8 / 970.8
Physical Exam
Physical Exam
General: No acute distress, sedated on the
Neck: Negative JVD
Heart: Regular, Negative S3 positive S1/S2, Negative S4, No murmur
Lungs: CTA b/l, negative wheezes/rales/rhonchi
Thorax: CT in place
Abd: Positive BS, NT/ND, neg rebound/rigidity/guarding
Ext: Negative cyanosis/clubbing/edema
Neuro: nonfocal
[2025-09-30] MEDS: ANCEF 5 IV ×2 (10:23→23:35)
[2025-09-30] MEDS: LR 500 IV (10:24)
[2025-09-30 10:27] LABS: INR 1.18; PT 15.3 Sec (11.4-14.6)
[2025-09-30 10:29] LABS: APTT 33.0 Sec (23.4-35.0)
[2025-09-30] MEDS: FLEXBUMIN 50 IV (11:52)
[2025-09-30 12:04] LABS: B.E. 0.2 mmol/L; HCO3 24.6 mmol/L (21-28); O2 Saturation % 97.9 % (94-98); PCO2 38 mmHg (35-48); PO2 74 mmHg (83-108)
[2025-09-30] MEDS: CALCIUM CHLORIDE 10% SYRINGE 500 MG IV ×2 (12:33→12:36)
--- NOTE | 2025-09-30 12:44 | W.PN.UPDATE ---
Update Note
Progress Note Update
Systolic blood pressure dropped to 60 mmHg status post patient turn for nursing care. Patient turned supine, Levophed up to 20, calcium x 2 given. Left pigtail drainage 150 cc last hour with 75 cc in past 15 minutes. Coags and LFTs within normal
limits. Chest x-ray shows new left lung whiteout. Dr. Cartagena notified. Decision made to return to OR for reexploration. Additional PRBC transfusing prior to OR. Vasopressin ordered. Patient's updated.
[2025-09-30 12:53] LABS: Blood Urea Nitrogen 25 mg/dl (9-20); Calcium 13.1 mg/dl (8.4-10.2); Carbon Dioxide 28 mmol/L (22-30); Chloride 104 mmol/L (98-107); Estimated Creatinine Clearance 42 ml/min; Glucose 182 mg/dl (70-99); Potassium 4.0 mmol/L (3.5-5.1); Sodium 131 mmol/L (135-145); eGFR 54.85
--- NOTE | 2025-09-30 13:00 | PTCARENOTE ---
Pt turned to assess skin. Stage 2 noted on sacrum. Pt did not tolerate. SBP 50's. CT JADON, Randa, at bedside. Calcium pushed, 25% Albumin, additional 250mL LR given. Left pleural chest tube initially dumped 155mL and continued to drain an
additional 180mL over 15min. Labs sent, chest x-ray was obtained and reviewed. SBP remained low despite additional calcium pushes, LR, and 1PRBC. Pt ultimately sent back to [facility] at 1240.
[2025-09-30 13:52] LABS: B.E. - POC -6.5 mmol/L; Glucose - POC 204 mg/dl (70-99); HCO3 - POC 22 mmol/L (21-28); Hematocrit - POC 26 % PCV (42-52); Hemodilution- POC Yes; Hemoglobin Calculated - POC 8.8; Ionized Calcium - POC 2.11 mmol/L (1.15-1.33); Lactate - POC 3.13 mmol/L (0.36-0.75); O2 Saturation %Calculated-POC 96.9 % (94-98); PCO2 - POC 58 mmHg (35-48); PO2 - POC 113 mmHg (83-108); Potassium - POC 4.2 mmol/L (3.5-5.1); Sodium - POC 135 mmol/L (136-145); Specimen Type - POC Arterial; pH - POC 7.18 (7.35-7.45)
--- NOTE | 2025-09-30 15:06 | CM ---
Reviewed chart. Met with Mrs. Hackett to review discharge plans. She states prior to admission Mr. Hackett resides with his spouse in a one story home without any steps to enter. He resides in a [place] community. He has a first floor set-up. Prior
to admission he ambulates with a rolling walker and needed assist with adls. Prior to admission he was current with [facility]. He has a prescription plan and uses [facility]. Will l need to see his functional level to see if he
will have any skilled care needs. Medical work-up in progress. The discharge plan is to go to some level of inpatient admission when medically stable.
[2025-09-30 15:16] LABS: B.E. - POC -2.2 mmol/L; Glucose - POC 174 mg/dl (70-99); HCO3 - POC 26 mmol/L (21-28); Hematocrit - POC 23 % PCV (42-52); Hemodilution- POC Yes; Hemoglobin Calculated - POC 7.8; Ionized Calcium - POC 1.76 mmol/L (1.15-1.33); Lactate - POC 2.83 mmol/L (0.36-0.75); O2 Saturation %Calculated-POC 98.3 % (94-98); PCO2 - POC 67 mmHg (35-48); PO2 - POC 138 mmHg (83-108); Potassium - POC 4.0 mmol/L (3.5-5.1); Sodium - POC 135 mmol/L (136-145); Specimen Type - POC Arterial; pH - POC 7.20 (7.35-7.45)
[2025-09-30 15:35] LABS: B.E. - POC -5.2 mmol/L; Glucose - POC 175 mg/dl (70-99); HCO3 - POC 21 mmol/L (21-28); Hematocrit - POC 25 % PCV (42-52); Hemodilution- POC Yes; Hemoglobin Calculated - POC 8.3; Ionized Calcium - POC 1.66 mmol/L (1.15-1.33); Lactate - POC 2.07 mmol/L (0.36-0.75); O2 Saturation %Calculated-POC 96.8 % (94-98); PCO2 - POC 46 mmHg (35-48); PO2 - POC 101 mmHg (83-108); Potassium - POC 3.7 mmol/L (3.5-5.1); Sodium - POC 135 mmol/L (136-145); Specimen Type - POC Arterial; pH - POC 7.28 (7.35-7.45)
--- NOTE | 2025-09-30 16:46 | W.PN.CT.SURG ---
CT Surgery Operative Note
-
Pre-op Diagnosis: Recurrent hemorrhage with hemodynamic instability
Post-op Diagnosis: Same
Procedure: Reexploration of chest, redo sternotomy, evacuation of large clot between the left lower lobe and the pericardium the left side, inspection of all surgical sites which were all hemostatic, packed with hemostatic agent, repair of chest
wall, left lateral thoracotomy connected to the sternotomy incision for visualization, thoracotomy repair
Primary Surgeon: Chun Cartagena MD, MS
Assisting Surgeons: Tray Resendez MD (For exposure, a second set of eyes, inspection for hemostasis), Chun Thorne PA-C (exposure, retraction, wound closure)
Specimen: None
Cultures: None
Complications / Blood Loss: 1L
Findings: Upon reopening the chest there was concern initially on PASQUALE for cardiac tamponade as the RV was completely underfilled. Open the sternotomy, and removed all wires, the mediastinum was completely dry without any significant clot or
blood inside the heart sac itself or anteriorly, there was no RV compression, he was likely intravascularly depleted. There was a significant mount of blood in the left chest and mostly concentrated around the medial aspect of the left lower lobe
and the outside of the pericardium. This hematoma was evacuated again and the left chest was washed out. I again reviewed all surgical sites including the the vein and arterial grafts as well as the ascending aortic 10 mm graft stump and
everything was hemostatic. The chest wall again was surveyed and there was no significant bleeding from the mammary bed. There was continued welling of blood that was relatively bright red from the lower aspect of the hilum and difficult to
visualize as this was deep in the left chest. A lateral thoracotomy was performed and was connected to the sternotomy incision in order for visualization. The patient was not tolerant of significant manipulation of the heart and rotation medially.
We had to perform lung isolation in order to evaluate for bleeding and were only able to see welling up of bright red blood but no significant arterial pumping. His area was packed for approximately 20 minutes with good effect initially. Drains
were placed in this area on the lateral aspect of the lung as well as the medial aspect the lung and the mediastinum. The previous pigtail drain was removed and the insertion site was inspected and it appeared to be hemostatic. After packing and
observing, there was no significant bleeding and so we decided to place his chest and reconstruct his sternum and close his thoracotomy site. We then closed his chest in the usual fashion using a combination of single and double wires. I then was
reviewing his CT angiogram of the chest abdomen pelvis performed last evening and again the blush is very likely extra pericardial as the mediastinum itself was completely dry in the operating room. I consulted Dr. Amilcar Andrade and discussed the
possibility of a rare bronchial artery hemorrhage secondary to significant coughing fits as every time he is reexplored there is a significant clot burden that are located around the hilum of the left lung but nothing inside the pericardial sac.
The patient was then closed in multiple layers and there is still a very slow ooze from the chest tubes and so plan is to roll to interventional radiology suite for interrogation.
Date: 09/30/25
[2025-09-30] MEDS: PACERONE PO ×2 (19:41→23:34)
--- NOTE | 2025-09-30 19:57 | W.PN.IRAD.PR ---
Procedure Note
-
Post angiogram thoracic aorta and L bronchial artery. Findings at angio suspicious for small volume contrast extravasation distal branch L bronchial artery. Secondary to size and tortuosity of the aorta, diminutive caliber and tortuosity of L
bronchial artery, attempts to advance a microcatheter into the L bronchial artery for embolization were unsuccessful. No immediate procedural complications. d/w Dr. Cartagena in IR control room following procedure.
--- NOTE | 2025-09-30 20:30 | PTCARENOTE ---
Received report from sage RN in IR. Decision made by Dr. Cartagena to take pt back to the OR. Pt transported to OR w/ anesthesia, respiratory, CT JADON, and IR nurse.
[2025-09-30 22:27] LABS: B.E. - POC -1.6 mmol/L; Glucose - POC 140 mg/dl (70-99); HCO3 - POC 27 mmol/L (21-28); Hematocrit - POC 28 % PCV (42-52); Hemodilution- POC Yes; Hemoglobin Calculated - POC 9.4; Ionized Calcium - POC 1.62 mmol/L (1.15-1.33); Lactate - POC 1.23 mmol/L (0.36-0.75); O2 Saturation %Calculated-POC 85.8 % (94-98); PCO2 - POC 65 mmHg (35-48); PO2 - POC 62 mmHg (83-108); Potassium - POC 4.4 mmol/L (3.5-5.1); Sodium - POC 139 mmol/L (136-145); Specimen Type - POC Arterial; pH - POC 7.23 (7.35-7.45)
--- NOTE | 2025-09-30 22:47 | W.PN.CT.SURG ---
CT Surgery Operative Note
-
Pre-op Diagnosis: Recurrent hemorrhage with extravasation on selective cath
Post-op Diagnosis: Same
Procedure: Anterior lateral thoracotomy, ligation of arterial vessel, cautery of raw surface and lung tissue for hemostasis, multiple rounds of packing and serial evaluations of all quadrants, application of topical hemostatic agents,
reapproximated ribs and closure thoracotomy
Primary Surgeon: Chun Cartagena MD, MS
Assisting Surgeons: Tray Resendez MD (retraction, hemostasis, cautery, packing, second set of eyes, closure with me), Bertha Martínez PA-C (exposure, and skin closure)
Specimen: None
Cultures: None
Complications / Blood Loss: 500 cc
Findings: Given that he had evidence of active cavitation on interventional radiology evaluation of likely a bronchial vessel bleed, because they are unable to selectively access the vessel for embolization, decision was made with the patient to
the operating room as he continued to have output from his chest drains. A large anterolateral thoracotomy was performed initially at the 6 intercostal space with shingling of the rib above, serial packing was performed and surveying of all
quadrants. There was some continued welling up of blood towards the posterior hilum at the diaphragmatic recess. Once we packed thoroughly here we found that there is raw surface along the pericardium and lung tissue. We sterilely worked her way
clockwise moving medially first and up towards the AP window and then back posteriorly down toward the inferior ligament. There was some small bronchial appearing vessels at the AP window towards the PA which was electrocauterized. There was a
large vessel down towards the diaphragm heading up towards the pericardium which was ligated with clips and electrocauterized. In order to evaluate the fissure and higher up towards the apex, we moved up to rib spaces. The lung was retracted
inferiorly and anteriorly and serial packing was performed once again. There is no obvious arterial bleeding at this point. With topical hemostatic agents applied anteriorly on the pericardial surface and along the lung outside the pericardium, we
had the anesthesiology team inflate the left lung. At this point we noticed that there was some weeping and oozing at the very tip and the anterior aspect of the left lower lobe which was working on daily hemostatic topical agents. This was
electrocauterized. Surveying of all quadrants again revealed that there is no change in color of her hemostatic agents which remained white. We then once again looked inside the pericardium and found no significant source of bleeding. Looking up
towards the anterior chest wall at the sternal closure site there was some weeping of dark blood from the bone marrow which was packed with fibrillar. This was expected as there was significant destruction of his chest wall in the previous
operations. A new 28 Polish chest drain was placed posteriorly directed towards the apex. The rigid then punched and using #2 Ethibond suture there were reapproximated. The muscularis was then approximated using #1 Vicryl sutures in multiple
layers followed by dermal and skin layer. He was relatively stable throughout the procedure with only momentary hypoxia that resolved with inflation of both lungs.
Date: 09/30/25
[2025-09-30 23:12] LABS: Glucose - Point of Care 178 mg/dl (70-99)
[2025-09-30 23:16] LABS: B.E. -2.5 mmol/L; HCO3 24.5 mmol/L (21-28); O2 Saturation % 100.0 % (94-98); PCO2 51 mmHg (35-48); PO2 246 mmHg (83-108); Potassium 4.5 mMOL/L (3.5-5.1); Sodium 133 mMOL/L (136-145)
[2025-09-30 23:22] LABS: Hematocrit 31.7 % (39.0-52.0); Hemoglobin 10.7 g/dL (13.0-18.0); Platelet Count 165 10^3/uL (130-400)
[2025-09-30 23:27] LABS: INR 1.40; PT 17.4 Sec (11.4-14.6)
[2025-09-30 23:28] LABS: APTT 35.4 Sec (23.4-35.0)
[2025-09-30 23:30] LABS: Fibrinogen 265 MG/DL (199-459)
[2025-09-30] MEDS: BACTROBAN 2% OINTMENT 1 APPLIC NASAL (23:33)
[2025-09-30] MEDS: SENOKOT PO (23:33)
[2025-09-30] MEDS: LIPITOR PO (23:34)
[2025-09-30 23:39] LABS: Blood Urea Nitrogen 26 mg/dl (9-20); Estimated Creatinine Clearance 39 ml/min; Glucose 152 mg/dl (70-99); Magnesium 2.0 mg/dl (1.6-2.3)
[2025-10-01] VITALS (25 sets, daily range): BP systolic 88–146; BP diastolic 59–108; PULSE 2–109; BMI 31.1
--- NOTE | 2025-10-01 | PTCARENOTE ---
Pt received from [facility] ~2300. Pt intubated and sedated. Precedex infusing. CPOT 0. RASS -5. Per Cartagena, keep intubated/sedated overnight. Pupils +2, reactive to light. Sinus sweta to sinus rhythm w/ 1st degree AVB / occasional PACs/PVCs on the tele
monitor. HR 50-60s. +Rub. No pacing wires. BP 90-120s/50s. Per Cartagena, keep SBPs ~90-110. CVP ~14, PAPs teens/ tens to teens. CI <2. Confirm swan placement on xray. B/L DP/PT pulses present via doppler. B/L radial pulses palpable. +2 B/L LE edema. Pt
w/ #8 ETT, 24 cm @ the lip. Vent settings as documented. POX 100%. R/L pleural CT, Mediastinal x2, and left lateral CT all to -20 suction, no airleaks noted, and output as documented. Abdomen soft. Hypoactive BS. Adler catheter in place and draining
small amount of yellow urine. OG tube in place to low intermittent suction. Sternal incision w/ Aquacel intact. Left lateral thoracotomy incision approximated and NEETA. 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 Left IJ cordis w/
SWAN @45, left brachial a-line, and PIVx3 in place. All lines leveled, zeroed, and flushed. Left groin arterial sheath intact, leveled/zeroed/flushed. Not sutured. Secured w/ Tegaderm and tape. EKG/adler care/CHG bath/x-ray complete on arrival.
Ordered labs sent. updated at bedside. See worklist for full nursing assessment and interventions.
[2025-10-01 00:17] LABS: Glucose - Point of Care 149 mg/dl (70-99)
[2025-10-01 00:31] LABS: B.E. -1.9 mmol/L; HCO3 23.7 mmol/L (21-28); O2 Saturation % 99.5 % (94-98); PCO2 43 mmHg (35-48); PO2 141 mmHg (83-108)
[2025-10-01 01:07] LABS: Glucose - Point of Care 124 mg/dl (70-99)
[2025-10-01 02:00] LABS: B.E. -1.7 mmol/L; HCO3 23.7 mmol/L (21-28); O2 Saturation % 98.7 % (94-98); PCO2 42 mmHg (35-48); PO2 85 mmHg (83-108); Potassium 4.3 mMOL/L (3.5-5.1)
[2025-10-01] MEDS: VANCOCIN 200 IV ×2 (02:14→16:14)
[2025-10-01 02:15] LABS: Glucose - Point of Care 112 mg/dl (70-99)
--- NOTE | 2025-10-01 02:39 | W.PN.CT ---
Today's Communication / Plan
-
-pod #1, s/p post multiple chest re-explorations on 09/30/25
-intubated AC 22/500/40% fiO2/ peep 5. ABG 7.36/42/85/23.7/98.7
-12 beat NSVT - increased briefly Amio from 0.5 to 1.0 and gave Amio bolus
-minimal output from CTs overnight: 2 meds 140/465, 2 pleur 175/625, L pleur 15/15
-mvO2 is 63.5. Drips: Dobut 2.5, Levo 4, Amio 0.5, Precedex 1.0, Insulin
-swan appears pulled back on CXR
-Hg 10.3/platelets 149K
-Cr 1.5 (baseline 1.4)
-LA 1.8
-Fibrinogen 259/ INR 1.42/ PTT 33.5. LFTs wnl
-wean off drips as tolerated
-wean off vent as tolerated
Assessment / Plan
-
- Delayed hemorrhage 12 days post cardiac surgery- s/p Redo sternotomy; Washout and evacuation of approximately 1.5 L of clot from the left chest; Ligation of mammary vein and distal mammary stump; Ligation of large vein towards the neck; Thorough
evaluation of all bypass grafts by Dr Cartagena on 09/30/25 at 2:30am
- Recurrent hemorrhage with hemodynamic instability- s/p Reexploration of chest, redo sternotomy, evacuation of large clot between the left lower lobe and the pericardium the left side, inspection of all surgical sites which were all hemostatic,
packed with hemostatic agent, repair of chest wall, left lateral thoracotomy connected to the sternotomy incision for visualization, thoracotomy repair by Dr. Cartagena on 09/30/25 at 4:45 pm
- Continued hemorrhage - s/p angiogram of thoracic aorta and L bronchial artery by IR, Dr. Andrade. Findings at angio suspicious for small volume contrast extravasation distal branch L bronchial artery. Secondary to size and tortuosity of the aorta,
diminutive caliber and tortuosity of L bronchial artery, attempts to advance a microcatheter into the L bronchial artery for embolization were unsuccessful. No immediate procedural complications.
s/p Anterior lateral thoracotomy, ligation of arterial vessel, cautery of raw surface and lung tissue for hemostasis, multiple rounds of packing and serial evaluations of all quadrants, application of topical hemostatic agents, reapproximated ribs
and closure thoracotomy by Dr. Cartagena on 09/30/25 at 10:47 pm
- S/p Recent CABG x 4 surgery with planned Impella 5.5 support on 09/17/25 and discharged home with VN on 09/24/25
- Admitted 09/29/25 with dizziness and near syncope- Hemorrhagic shock, acute blood loss anemia
- Ischemic cardiomyopathy with EF of 35%
- Significant pleural effusion with respiratory failure
- Chronic lymphocytic leukemia with chronically elevated white count and thrombocytopenia
- Thrombocytopenia
- Multivessel coronary artery disease- hx PCI with stent
- Chronic systoli CHF with reduced EF
- HTN/HLD
- BPH
- hx Cataracts
- Carpal tunnel and hernia repair
- Cholecystectomy
Discussed patient care with: Nursing and Care Team
Subjective
-
Date of Service: October 01, 2025
Objective Data
-
PT 17.4 Sec (11.4-14.6) H 09/30/25 23:07
INR 1.40 09/30/25 23:07
APTT 35.4 Sec (23.4-35.0) H 09/30/25 23:07
Vital Signs
Vital Signs
Temp Pulse Resp BP Pulse Ox
95.8 F L 60 22 132/72 98
10/01/25 02:00 10/01/25 02:04 10/01/25 02:00 09/30/25 20:00 10/01/25 02:04
CT Intake/Output/Weight
09/30/25 09/30/25 10/01/25
06:59 18:59 06:59
Intake Total 1660.7 / 2003.3 2315.6 / 2652.4 336.8 / 2652.4
Output Total 2110 / 4060 1410 / 1765 355 / 1765
Balance -449.3 / -2054.7 905.6 / 887.4 -18.2 / 887.4
SaO2: 98
Physical Exam
-
General: Other (sedated, intubated)
Cardiovascular: Regular rate & rhythm, No Murmurs and Rub
Respiratory: Decreased Breath Sounds
Sternum: Stable
Incision: Clean, Dry and Intact
Extremities: Edema +2 (feet b/l)
Abdomen: soft, nontender, nondistended +decreased bowel sounds
Data Reviewed
-
Lab Results: Results Reviewed
Medications: Active Meds Reviewed
Chest X-Ray: Report Reviewed and Image Reviewed
ECG: Report Reviewed and Image Reviewed
[2025-10-01] MEDS: LEVOPHED 250 IV (02:55)
[2025-10-01 03:19] LABS: Glucose - Point of Care 149 mg/dl (70-99)
[2025-10-01] MEDS: ANCEF 5 IV ×3 (03:45→21:12)
[2025-10-01 03:57] LABS: APTT 33.5 Sec (23.4-35.0); Fibrinogen 259 MG/DL (199-459); INR 1.42; PT 17.6 Sec (11.4-14.6)
[2025-10-01 04:00] LABS: Hematocrit 29.4 % (39.0-52.0); Hemoglobin 10.3 g/dL (13.0-18.0); Mean Corp Hgb Conc. 35.0 g/dL (33.0-37.0); Mean Corpuscular Volume 89.1 fL (80.0-94.0); Platelet Count 149 10^3/uL (130-400); Red Cell Dist. Width 15.5 % (11.5-14.5)
[2025-10-01 04:04] LABS: ALT (SGPT) 14 U/L (0-50); AST (SGOT) 28 U/L (17-59); Albumin 1.8 g/dl (3.5-5.0); Alkaline Phosphatase 47 U/L (38-126); Total Protein 3.6 g/dl (6.3-8.2)
[2025-10-01 04:09] LABS: Blood Urea Nitrogen 27 mg/dl (9-20); Calcium 9.6 mg/dl (8.4-10.2); Carbon Dioxide 27 mmol/L (22-30); Chloride 104 mmol/L (98-107); Estimated Creatinine Clearance 37 ml/min; Glucose 123 mg/dl (70-99); Magnesium 1.9 mg/dl (1.6-2.3); Potassium 4.2 mmol/L (3.5-5.1); Sodium 132 mmol/L (135-145); eGFR 46.19
[2025-10-01] MEDS: CORDARONE 103 MG IV (04:15)
--- NOTE | 2025-10-01 04:29 | PTCARENOTE ---
Pt reassessed. Neuro assessment unchanged. Pt waking up/breathing over vent. CT JADON at bedside, Precedex titrated/ restraints applied. 10 beat run V-tach on tele monitor. CT JADON aware, amio bolus administered. Pt now SR w/ first degree on the tele
monitor. HR 60-70s. BPs 90-100s/50s. CVP ~14, PAP 16/13. No CI, trending MVO2s. ETT maintained. POX 96-98%. FIO2 40%. CTx5 assessment unchanged, output as documented. No dumping. Kee catheter intact and draining minimal tk urine. 250 LR bolus
x2 for low UO. OG tube intact, low intermittent suction. All surgical sites stable. All lines leveled, zeroed, and flushed. Dobutamine, amio, levo, and Precedex infusing. Glycemic protocol followed. See worklist for full VS & I/Os. Ordered labs
sent.
[2025-10-01] MEDS: MAGNESIUM SULFATE 102 GRAMS IV (05:27)
[2025-10-01] MEDS: VERSED 0.25 MG IV ×3 (05:28→21:17)
[2025-10-01] MEDS: PRECEDEX 100 IV ×4 (05:35→22:54)
[2025-10-01] MEDS: CORDARONE 259 MG IV (05:37)
[2025-10-01 05:46] LABS: Glucose - Point of Care 131 mg/dl (70-99)
[2025-10-01] MEDS: LEVOPHED 258 MG IV (06:00)
--- NOTE | 2025-10-01 07:08 | W.PN.INTV ---
Today's Communication / Plan
Recommendations
- Continue to wean Precedex
- Once more awake, switch to pressure support, SBT trial
- Continue to wean Levophed as tolerated
Assessment
-
80-year-old gentleman with delayed hemorrhage, 12 days post cardiac surgery, s/p redo sternotomy, washout and evacuation of approximately 1.5 L of clot from left chest, ligation of mammary vein and distal mammary stump, ligation of large vein
towards the neck, POD # 2
09/30, recurrence of left hemothorax, s/p reexploration and hematoma evacuation, POD#1.
09/30, persistent hemorrhagic chest tube out put, IR evaluation suggested active arterial extravasation, s/p return to the OR, ligation of arterial vessel and electrocautery, POD#1.
Titrate off pressors per protocol, currently MAP is 78, Levophed infusing at 5 and dobutamine at 2.5. CVP of 9
ECHO from 09/23, LVEF 40 to 45%.
Management of chest tubes per primary service. Left-sided pigtail catheter in place, no further output noted since initial placement. No air leak.
Intubated/sedated, initiate SAT when able. Currently on propofol infusion
RASS goal of 0 to -1
Intubated for procedure, SBT trial when patient able to spontaneously breath
Current vent settings: Volume AC, 500/22/40%/5.
AB.30 /
CXR with left lower lobe atelectasis, chest tubes in place. No pneumothorax noted.
Maintain supplement oxygen as needed
No prior history of pulmonary disease, except for 4 mm nodule in the right lower lobe.
Can add nebulizers if needed
Aspiration precautions
Encouraged incentive spirometry, OOB/ambulation/early mobility
Advance diet as tolerated following extubation
GI prophylaxis: Protonix
Monitor critical I/O's
Kee/chest tube output
Hb/platelets postoperatively stable. S/p PRBC, hemoglobin was as low as 7.6. Most recent 10.6.
Trend CBC for now
Can transfuse if indicated for Hb <7, plt <50 in surgical patients
DVT prophylaxis including SCDs
Other medical diagnoses:
- Acute blood loss anemia due to delayed hemorrhage post CABG, s/p redo sternotomy x 3, and evacuation of clot as well as ligation of mammary vein, subsequent arterial ligation and cautery.
- Shock, hemorrhagic and suspect concomitant cardiogenic. Resolving. Levophed requirement decreasing
- Atrial fibrillation with rapid ventricular rate. Currently on amiodarone infusion.
- History of coronary artery disease, s/p coronary artery bypass grafting 09/2025, patent graft as per cardiac catheterization on 09/29.
- Ischemic cardiomyopathy, HFrEF. Await ECHO.
- Hypertension, hyperlipidemia
- History of CLL with chronic thrombocytopenia
- GERD
- Depression/anxiety
- History of SYDNI
- History of BPH
Critical Care time [47] mins -- The patient is admitted for acute critical illness for the treatment of vital organ failure and/or prevention of further life-threatening conditions. Total care includes time spent in review of history, physical exam,
medications, hemodynamic/ventilator parameters, laboratory data, imaging and discussion with house staff, pharmacy, respiratory therapy, deputy felony clerk, and nursing
Data:
CXR 09/2025: Interval advancement of the pulmonary artery catheter with tip in appropriate positioning. Stable appearance of the additional support lines and tubes.
Unchanged mild basilar opacities favored to represent atelectasis. No pneumothorax.
CTA Chest 09/2025: New moderate size slightly high attenuation density pericardial effusion especially posteriorly (slight increased density on postcontrast images) with findings suspicious for small volume active bleeding within as detailed above
as well as new moderate size left pleural effusion in comparison to recent prior CTA. Findings discussed by telephone with Dr. Nash in the emergency department at approximately [address] Cartagena at approximately 1738 hours on September
2024.
Slightly high attenuation density fluid suggested within small volume urinary bladder as well as Kee catheter possibly representing some blood products/proteinaceous material.
Additional nonurgent findings as detailed above, some of which include left lower lobe consolidation, small right pleural effusion, bilateral simple renal cysts and prior cholecystectomy.e
LHC 09/29/2025: 1: Widely patent grafts with no obvious source of bleeding.
2: Unremarkable aortogram in BECKI and THOMASON projections with no obvious source of bleeding.
ECHO 09/23/2025: 1. Ejection fraction is 40-45% by visual assessment.
2. Normal left ventricular size, wall thickness and systolic function. No regional wall motion abnormalities are seen.
3. Aortic sclerosis with trace aortic regurgitation is seen.
4. Left ventricular wall motion is diffusely hypokinetic.
5. Thickened mitral leaflets with adequate leaflet excursion. Mild mitral annular calcification. Trace mitral regurgitation.
Subjective Dataa
Subjective Data
Date of Service:
Date of Service: October 01, 2025
Subjective:
Patient currently intubated, mechanically ventilated and sedated
Review of Systems
General: Unobtainable - Sedation
Objective Data
Data Reviewed
Vital Signs / I&O / Oxygen:
Vital Signs
Temp Pulse Resp BP Pulse Ox
98.5 F 77 22 132/72 97
10/01/25 06:00 10/01/25 06:08 10/01/25 06:08 09/30/25 20:00 10/01/25 06:08
Intake and Output
09/30/25 10/01/25 10/02/25
06:59 06:59 06:59
Intake Total 1660.7 / 2004.3 3461.8 / 3461.8
Output Total 3910 / 4060 1890 / 1890
Balance -2249.3 / -2054.7 1571.8 / 1571.8
SaO2 [A/C] 96
SaO2 97
Nasal Cannula flow liters per 4
minute
Physical Exam
General: Comfortable
HEENT: Normocephalic
Cardiovascular: S1-S2 and Peripheral Edema
Respiratory: Clear
GI: Soft and Non Distended
Neurology: Other (Currently sedated on Precedex)
Skin: Warm
Labs/Micro/Reports
Lab Data
10/01/25 03:36
10/01/25 03:36
Laboratory Results
09/30/25 09/30/25 09/30/25
06:54 09:56 11:40
PT 14.8 H 15.3 H
INR 1.13 1.18
APTT 30.8 33.0
pH 7.46 H 7.42
pCO2 41 38
pO2 136 H 74 L
HCO3 29.2 H 24.6
O2 Delivery Level
09/30/25 10/01/25 10/01/25
23:07 00:25 01:52
PT 17.4 H
INR 1.40
APTT 35.4 H
pH 7.29 L 7.35 7.36
pCO2 51 H 43 42
pO2 246 H 141 H 85
HCO3 24.5 23.7 23.7
O2 Delivery Level Rr 22, fio2 50% Rr 22, fio2 40
10/01/25
03:36
PT 17.6 H
INR 1.42
APTT 33.5
pH
pCO2
pO2
HCO3
O2 Delivery Level
[2025-10-01 07:14] LABS: Glucose - Point of Care 80 mg/dl (70-99)
--- NOTE | 2025-10-01 07:37 | PTCARENOTE ---
Received pt from cage shift manager RN at 0700; Pt intubated, sedated, precedex infusing. Pupils 2, equal, reactive; NSR 1st degree AVB, prolonged QT, LBBB, on monitor. VSS. omar Krishnamurthy at 45, MD aware of incorrect placement, Pratik stern, Bernardem art
sheath, PIVx3. All lines leveled and zeroed. Insulin, amio, levo, dobut and precedex infusing, see flowsheet for details. Lungs clr, dim bases; CT x5 -20 wall suction, no crepitus no airleak noted. ETT 8.0 24 at the lip, vent AC TV 500, 5/5 fio2
40%, RR 22. Hypoactive BS, OGT at 63 at lip, draining green bile, LIWS. Kee cath, tk, yellow urine. +1 generalized edema, +2 BLE edema. Palpable rad pulses, doppler DP and PT pulses. All surgical sites CDI. See nursing documentation for further
details.
[2025-10-01] MEDS: DILAUDID 1 MG IV ×3 (08:17→19:02)
[2025-10-01 08:57] LABS: Glucose - Point of Care 89 mg/dl (70-99)
[2025-10-01] MEDS: BUMEX 1 MG IV (09:13)
[2025-10-01] MEDS: PROTONIX IV 40 MG IV (09:13)
[2025-10-01] MEDS: BACTROBAN 2% OINTMENT 2 APPLIC NASAL (09:14)
[2025-10-01] MEDS: PACERONE 200 MG PO ×2 (09:15→16:12)
[2025-10-01] MEDS: NSS (PRESERVATIVE FREE) 10 ML IV (09:15)
[2025-10-01] MEDS: LOPRESSOR PO (09:29)
[2025-10-01] MEDS: SENOKOT PO (09:29)
[2025-10-01] MEDS: MAGNESIUM OXIDE PO (09:29)
[2025-10-01] MEDS: LIDOCAINE 4% PATCH 1 PATCH TOPICAL (09:30)
--- NOTE | 2025-10-01 09:40 | W.PN.ANS.POP ---
Anesthesia Post Operative
- Anesthesia Post Op Note
Vital Signs Stable-See Nursing Note: Yes
Airway Patent: Yes (patient remains intubated and sedated, on pressors. )
Adequate Pain Control: Yes
Change in Mental Status: No
Current Postoperative Nausea & Vomiting: No
Anesthesia Complications: No
General Anesthetic Recall: No
Unplanned Admission: No
Post Op Hydration Adequate: Yes
[2025-10-01 09:52] LABS: B.E. -3.0 mmol/L; HCO3 23.6 mmol/L (21-28); O2 Saturation % 94.7 % (94-98); PCO2 48 mmHg (35-48); PO2 66 mmHg (83-108); Potassium 4.3 mMOL/L (3.5-5.1); Sodium 134 mMOL/L (136-145)
--- NOTE | 2025-10-01 10:20 | PTCARENOTE ---
Right Femoral A-line removed by RN with CTNP at bedside; manual pressure held for 10 minutes; groin C/D/I; Doppler pluses present in right lower extremity; bedrest till 1400.
[2025-10-01] MEDS: OFIRMEV 100 IV (10:31)
[2025-10-01 10:36] LABS: ACT+ - POC 134 Seconds (82-134)
[2025-10-01 11:09] LABS: Glucose - Point of Care 104 mg/dl (70-99)
--- NOTE | 2025-10-01 11:10 | W.PN.CARDCBS ---
Today's Communication / Plan
-
Continue postoperative care
Wean IV pressor therapy as able including IV Levophed
Continue IV inotropic therapy with Dobutamine as per CT surgery
Monitor cr 1.5
Remains sinus with ventricular bigeminy, s/p NSVT on IV and PO Amiodarone.
Check BMP and Mg with bigeminy
Very limited bedside echocardiogram Sep 29 2025prior to urgent cardiac catheterization on Levophed demonstrated EF likely 40-45% with a moderate posterior pericardial effusion
Monitor H&H and consider transfusion as needed. Dual antiplatelet therapy currently on hold.
CT care as per CT surgery
Vent management as per pulmonary/CT surgery
Impression / Plan
-
.
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 Paez of [facility]
Impression:
Near syncope, hypotension with Hemorrhagic shock
s/p multiple chest reexplorations Sep 30 2025
Delayed post CABG bleeding, source unclear
Left hemothorax status post chest tube
Posterior pericardial effusion with contrast extravasation with concern delayed bleeding graft bleeding not demonstrated via urgent cardiac catheterization
NSVT, ventricular bigeminy
Postop anemia with acute blood loss requiring multiple transfusions
Elective CABG x 4 [VASQUEZ�LAD, SVG�PDA, SVG�DX�OM] with placement of a 5.5 Impella 09/17/[address] Cartagena
Ischemic cardiomyopathy with preoperative ejection fraction 15 to 20% and postoperative ejection fraction 40%
History of BPH with postoperative urinary retention requiring Kee catheter
Hypertension
Hyperlipidemia
SYDNI
Polycythemia vera
CLL with chronic thrombocytopenia
Spinal stenosis
GERD
Depression/anxiety
Echo Sep 23 2025: EF 40-45% no significant valve disease
Urgent bedside echo very limited Sep 29 2025 as below
Urgent left cath Sep 29 2025: Widely patent grafts with no obvious source of bleeding.
Plan:
Critically ill 80-year-old gentleman with hemorrhagic shock status post recent CABG with Impella on September 17, 2025.
-Left hemothorax status post chest tube in the ED
On Sep 30 early AM, the patient underwent Redo sternotomy and evacuation of 1.5L of clot from left hemithorax and anterior mediastinum. A mammary vein was noted to be bleeding and hemostasis achieved. The patient was transfused RBC's and Platelets
both pre and intraoperatively. He was transferred back to the CVICU intubated, on Dobutmine 5 and Levophed 2 at 02:30.
Continue postoperative care
Wean IV pressor therapy as able including IV Levophed
Continue IV inotropic therapy with Dobutamine as per CT surgery
Monitor cr 1.5
Remains sinus with ventricular bigeminy, s/p NSVT on IV and PO Amiodarone.
Check BMP and Mg with bigeminy
Very limited bedside echocardiogram Sep 29 2025prior to urgent cardiac catheterization on Levophed demonstrated EF likely 40-45% with a moderate posterior pericardial effusion
Monitor H&H and consider transfusion as needed. Dual antiplatelet therapy currently on hold.
CT care as per CT surgery
Vent management as per pulmonary/CT surgery
Discussed with nursing
CCT:31 min
HPI: I had the pleasure to meet Eyad Hackett along with his Harriet in ER bed 17 for evaluation of hypotension and several episodes of near syncope with falls and shortness of breath status post recent CABG x [address] Cartagena on September 17, 2025.
He is followed by Dr. Paez with [facility]. Reg has a history of ischemic cardiomyopathy with an ejection fraction 15% and known multivessel coronary artery disease who had a recent positive stress test and subsequent left heart catheterization
demonstrating multivessel coronary disease referred for CABG. Additionally, he has a history of hypertension, hyperlipidemia, BPH with urinary retention, CLL with chronic thrombocytopenia, and sleep apnea.
.
He was admitted electively September 15, 2025 and placed on a dobutamine drip and underwent diuresis for optimization prior to elective CABG x 4 [VASQUEZ�LAD, SVG�PDA, SVG�DX�OM] with placement of a 5.5 Impella 09/17/[address] Cartagena; impella was removed
on September 19. A repeat echocardiogram on dobutamine reported an improved ejection fraction around 40%. Postoperative course was complicated by hypotension, acute on chronic renal insufficiency and urinary retention. He was weaned off inotropes,
pressors and midodrine prior to discharge home on September 24. His hospital course was complicated by urinary retention and he was discharged home with a Kee catheter. His discharge medications include aspirin 81 mg daily, Plavix 75 mg daily,
metoprolol succinate 12.5 mg twice daily, Bumex 2 mg daily, Jardiance 10 mg daily.
.
Patient and his states that he has been feeling fine since discharge until this morning. Following breakfast fell felt like he had to go to the bathroom and have a bowel movement however on his way to the restroom with the assistance of his
he became extremely shaky and weak. She was able to get him to the bathroom where he fell to his knees. She denies loss of consciousness or head trauma. He ultimately never had a bowel movement. He had 3 more near-syncopal events with
profound weakness and increasing shortness of breath prompting return to the emergency department. He denies chest pain or pressure. He denies fevers or chills. He denies chest wall or head trauma with falls. In the emergency department he was
noted to be hypotensive with initial blood pressures reportedly 60s and 70s systolic which responded initially to IV fluids. Initial chest x-ray showed widened mediastinum and globular heart with elevated left hemidiaphragm and a new large opacity
in the left hemithorax. Initial twelve-lead EKG was sinus rhythm with PACs and an incomplete left bundle branch block with ST-T wave abnormalities in the inferior lateral leads with prolonged QT at 500 ms not significantly changed from prior study.
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 Initial hemoglobin 8.6, hemoglobin 8.9 on day of discharge September 24. Platelets 357. Sodium 136, potassium 3.4. BUN and creatinine 23/1.4. Creatinine was 1.2
on day of discharge. I within normal limits. Cardiac troponin 0.065. proBNP 4700. Procalcitonin less than 0.05. Lactate 2.
.
Patient was seen and examined with Dr. Cartagena and CT surgery PA as well as ER physician Dr. Nash. Stat CTA of the chest demonstrated new large left pleural effusion and tiny right pleural effusion. There was a pericardial effusion posteriorly
which demonstrated contrast extravasation and pooling raising concern for delayed bleeding from one of the grafts. A chest tube was placed by CT surgery in the emergency room with significant bloody drainage, totaling 2.7 L following urgent cardiac
catheterization. Patient was transported to cardiac cath where he was electively intubated with anesthesia. Interventional cardiology performed emergent coronary angiography and arteriogram with no obvious extravastion identified in grafts or at
site of Impella graft. He was then transported to the CVICU for close monitoring on Levophed having received 3 units packed red blood cells.
Progress Note - Product Builder
Subjective
Date of Service: October 01, 2025
Pt seen and examined. sedated on vent
Objective
Labs:
10/01/25 03:36
10/01/25 03:36
Labs
Hgb 10.3 g/dL (13.0-18.0) L 10/01/25 03:36
Hct 29.4 % (39.0-52.0) L 10/01/25 03:36
Plt Count 149 10^3/uL (130-400) 10/01/25 03:36
PT 17.6 Sec (11.4-14.6) H 10/01/25 03:36
INR 1.42 10/01/25 03:36
APTT 33.5 Sec (23.4-35.0) 10/01/25 03:36
Sodium 132 mmol/L (135-145) L 10/01/25 03:36
Potassium 4.2 mmol/L (3.5-5.1) 10/01/25 03:36
BUN 27 mg/dl (9-20) H 10/01/25 03:36
Creatinine 1.5 mg/dL (0.7-1.3) H 10/01/25 03:36
Glucose 123 mg/dl (70-99) H 10/01/25 03:36
Troponins
09/29/25
16:25
Troponin I 0.065 H*
Vital Signs and I&O:
Vital Signs
Temp Pulse Resp BP Pulse Ox
98.1 F 68 28 118/73 95
10/01/25 10:00 10/01/25 11:04 10/01/25 11:04 10/01/25 11:00 10/01/25 11:04
Vital Signs
Temp Pulse Resp BP Pulse Ox
98.1 F 68 28 118/73 95
10/01/25 10:00 10/01/25 11:04 10/01/25 11:04 10/01/25 11:00 10/01/25 11:04
Intake & Output
09/29/25 09/30/25 10/01/25 10/02/25
06:59 06:59 06:59 06:59
Intake Total 1660.7 / 2004.3 3461.8 / 3791.1 602.9 / 602.9
Output Total 3910 / 4060 1890 / 1920 240 / 240
Balance -2249.3 / -2055.7 1571.8 / 1871.1 362.9 / 362.9
Physical Exam
Physical Exam
General: No acute distress, sedated on the
Neck: Negative JVD
Heart: Regular, Negative S3 positive S1/S2, Negative S4, No murmur
Lungs: CTA b/l, negative wheezes/rales/rhonchi
Thorax: CT in place
Abd: Positive BS, NT/ND, neg rebound/rigidity/guarding
Ext: Negative cyanosis/clubbing/edema
Neuro: nonfocal
--- NOTE | 2025-10-01 11:24 | PTCARENOTE ---
Vent bigemeny on monitor, HR 30-40s, amio stopped per CT SPOT WORKER, psych tech in room, CT SPOT WORKER aware and in room, labs sent, levo titrated per order for hypotension, ekg completed. Converted to afib 70-80. Dobut, insulin gtt cont, see flowsheet for
details.
[2025-10-01 11:29] LABS: B.E. -1.7 mmol/L; HCO3 23.0 mmol/L (21-28); O2 Saturation % 98.3 % (94-98); PCO2 38 mmHg (35-48); PO2 78 mmHg (83-108)
[2025-10-01 11:47] LABS: Magnesium 2.1 mg/dl (1.6-2.3)
[2025-10-01 11:48] LABS: Blood Urea Nitrogen 32 mg/dl (9-20); Calcium 9.2 mg/dl (8.4-10.2); Carbon Dioxide 26 mmol/L (22-30); Chloride 104 mmol/L (98-107); Estimated Creatinine Clearance 37 ml/min; Glucose 104 mg/dl (70-99); Potassium 4.4 mmol/L (3.5-5.1); Sodium 133 mmol/L (135-145); eGFR 39.75
[2025-10-01] MEDS: FLEXBUMIN 100 IV ×2 (11:49→20:40)
[2025-10-01 12:51] LABS: B.E. -1.6 mmol/L; HCO3 22.9 mmol/L (21-28); O2 Saturation % 99.1 % (94-98); PCO2 37 mmHg (35-48); PO2 93 mmHg (83-108); Potassium 4.5 mMOL/L (3.5-5.1); Sodium 133 mMOL/L (136-145)
[2025-10-01 13:07] LABS: Glucose - Point of Care 96 mg/dl (70-99)
[2025-10-01] MEDS: VENTOLIN NEBULES 2.5 MG INH (13:27)
--- NOTE | 2025-10-01 13:52 | PTCARENOTE ---
Respiratory, CTNP and anesthesia bedside; at bedside and updated; pt extubated to CPAP @ 1310 and repeat ABG resulted; pt reintubated by anesthesia @ 1350. OGT placed by CTNP; CRX at bedside.
[2025-10-01 13:56] LABS: B.E. - POC -2.7 mmol/L; Blood Urea Nitrogen - POC 29 mg/dl (3-120); Chloride - POC 105 mmol/L (96-111); Creatinine - POC 2.00 mg/dl (0.3-1.0); Glucose - POC 86 mg/dl (70-99); HCO3 - POC 23 mmol/L (21-28); Hematocrit - POC 26 % PCV (42-52); Hemodilution- POC No; Hemoglobin Calculated - POC 9.0; Ionized Calcium - POC 1.41 mmol/L (1.15-1.33); Lactate - POC 0.99 mmol/L (0.36-0.75); O2 Saturation %Calculated-POC 94.4 % (94-98); PCO2 - POC 43 mmHg (35-48); PO2 - POC 78 mmHg (83-108); Potassium - POC 4.2 mmol/L (3.5-5.1); Sodium - POC 137 mmol/L (136-145); Specimen Type - POC Arterial; pH - POC 7.34 (7.35-7.45)
[2025-10-01] MEDS: DECADRON 10 MG IV (14:02)
[2025-10-01] MEDS: VERSED 2 MG IV (14:02)
[2025-10-01] MEDS: FERRLECIT 110 MG IV (14:30)
[2025-10-01] MEDS: LR 250 IV (14:36)
--- NOTE | 2025-10-01 14:37 | W.PN.UPDATE ---
Update Note
Progress Note Update
Patient was extubated after a successful spontaneous breathing trial. However, after extubation patient appeared to by tachypneic with shallow respirations. He was then started on BIPAP. After one hour a post extubation gas was obtained. He showed
that he was in a mild respiratory acidosis and mildly hypoxic. After discussion, the decision was made to reintubate the patient in a controlled setting. He was reintubated and placed back on original vent settings and CXR was obtained to confirm
placement. was at bedside and updated.
--- NOTE | 2025-10-01 14:40 | CM ---
Reviewed chart. Met with Mrs. Hackett to review discharge plans. Prior to admission Mr. Hackett resides with his spouse in a one story home without any steps to enter. He resides in a [place] community. He has a first floor set-up. Prior to
admission he ambulates with a rolling walker and needed assist with adls. [facility] He has a prescription plan and uses [facility]. Will l need to see his functional level to see if he will
have any skilled care needs. She is agreeable to having a referral sent to [facility] At [place] when he can start physical and occupational therapy. Medical work-up in progress. The discharge plan is to go to some level of inpatient
admission hopefully [facility]. if approved for admission and bed available when medically stable.
[2025-10-01 15:11] LABS: Glucose - Point of Care 106 mg/dl (70-99)
[2025-10-01 16:10] LABS: Glucose - Point of Care 116 mg/dl (70-99)
[2025-10-01] MEDS: FLEXERIL 5 MG PO ×2 (16:13→21:26)
--- NOTE | 2025-10-01 16:23 | PTCARENOTE ---
Afib on monitor, VSS, pt intubated, resting comfortably. Insulin, precedex, levo, dobut infusing, see flowsheet for details. at bedside, emotional support given.
[2025-10-01 17:09] LABS: Glucose - Point of Care 122 mg/dl (70-99)
[2025-10-01 18:10] LABS: Glucose - Point of Care 113 mg/dl (70-99)
[2025-10-01 18:54] LABS: Glucose - Point of Care 117 mg/dl (70-99)
[2025-10-01 19:12] LABS: B.E. - POC -2.3 mmol/L; Blood Urea Nitrogen - POC 30 mg/dl (3-120); Chloride - POC 105 mmol/L (96-111); Creatinine - POC 2.02 mg/dl (0.3-1.0); Glucose - POC 82 mg/dl (70-99); HCO3 - POC 24 mmol/L (21-28); Hematocrit - POC 27 % PCV (42-52); Hemodilution- POC Yes; Hemoglobin Calculated - POC 9.0; Ionized Calcium - POC 1.40 mmol/L (1.15-1.33); Lactate - POC 1.45 mmol/L (0.36-0.75); O2 Saturation %Calculated-POC 95.3 % (94-98); PCO2 - POC 44 mmHg (35-48); PO2 - POC 83 mmHg (83-108); Potassium - POC 4.0 mmol/L (3.5-5.1); Sodium - POC 136 mmol/L (136-145); Specimen Type - POC Arterial; pH - POC 7.34 (7.35-7.45)
[2025-10-01] MEDS: NSS IV (19:53)
[2025-10-01 20:39] LABS: Glucose - Point of Care 103 mg/dl (70-99)
[2025-10-01] MEDS: BACTROBAN 2% OINTMENT 1 APPLIC NASAL (21:12)
[2025-10-01] MEDS: REMOVE LIDOCAINE PATCH 1 PATCH REMOVE (21:13)
[2025-10-01] MEDS: MAGNESIUM OXIDE 400 MG PO (21:26)
[2025-10-01] MEDS: SENOKOT 8.6 MG PO (21:26)
[2025-10-01] MEDS: LIPITOR 40 MG PO (21:27)
--- NOTE | 2025-10-01 21:45 | PTCARENOTE ---
Assumed care of pt from sage RN. Report at bedside. Pt intubated/ lightly sedated. Precedex infusing. Pupils +2, reactive to light. Pt arousable by verbal stimulation. Following simple commands. Weak B/L hand grasps. OTT. A-fib on the tele
monitor w/ frequent PVCs. HR 90-100s. +Rub. BPs 90-110s/50s. Levo infusing to keep SBPs 90-110. +1 generalize edema. +2 B/L LE present. Pt w/ ETT #8, 24 cm @ right lip. FIO2 40%. POX 95-96%. Full vent settings as documented in the worklist. R/L
pleural CT's, Mediastinal Ctx2, and L lateral CT all to -20 suction, no airleaks noted, and output as documented. Abdomen round. Hypoactive BS. Kee catheter intact and draining tk urine. OG tube in place, low intermittent suction output brown.
All surgical sites stable at this time. Right groin soft, dressing intact. Left IJ cordis, PIV x4, and L brachial a-line in place. PIV x4 flushed. Brachial a-line leveled/zeroed/flushed. See worklist for full nursing assessment and interventions.
See MAR for medication administration. Glycemic protocol followed. Current drips; levo, dobutamine, precedex, and insulin. Repeat labs for ectopy on the monitor.
[2025-10-01 21:46] LABS: B.E. -1.6 mmol/L; HCO3 22.9 mmol/L (21-28); O2 Saturation % 96.7 % (94-98); PCO2 37 mmHg (35-48); PO2 69 mmHg (83-108); Potassium 4.1 mMOL/L (3.5-5.1)
[2025-10-01 21:49] LABS: Hematocrit 26.5 % (39.0-52.0); Hemoglobin 9.0 g/dL (13.0-18.0); Platelet Count 148 10^3/uL (130-400)
[2025-10-01 22:05] LABS: Blood Urea Nitrogen 37 mg/dl (9-20); Calcium 9.1 mg/dl (8.4-10.2); Carbon Dioxide 25 mmol/L (22-30); Chloride 103 mmol/L (98-107); Estimated Creatinine Clearance 35 ml/min; Glucose 103 mg/dl (70-99); Magnesium 2.1 mg/dl (1.6-2.3); Potassium 4.1 mmol/L (3.5-5.1); Sodium 131 mmol/L (135-145); eGFR 37.12
[2025-10-01] MEDS: PACERONE PO (22:23)
[2025-10-01 22:53] LABS: Glucose - Point of Care 111 mg/dl (70-99)
[2025-10-02] VITALS (17 sets, daily range): BP systolic 115–147; BP diastolic 58–81; BMI 32.1
[2025-10-02] MEDS: DILAUDID 1 MG IV ×5 (00:12→22:24)
[2025-10-02 00:22] LABS: Glucose - Point of Care 109 mg/dl (70-99)
--- NOTE | 2025-10-02 00:28 | PTCARENOTE ---
Pt reassessed. Neuro assessment unchanged. A-fib on the tele monitor w/ frequent PVCs. HR 90-100s. BP 100s/50s. Pt maintained on ETT. Setting now SIMV. CT JADON and respiratory at bedside. FiO2 40%. POX 97%. See worklist for full settings. CTx5
assessment unchanged, output as documented. Kee catheter intact and draining tk urine. OG tube in place, low intermittent suction, output brown. Current drips; levo, insulin, precedex, and dobutamine. All surgical sites stable. Repositioned as
documented.
[2025-10-02] MEDS: PRECEDEX 100 IV ×6 (00:51→23:48)
[2025-10-02] MEDS: DILAUDID 0.5 MG IV ×2 (01:30→04:55)
[2025-10-02] MEDS: VERSED 0.25 MG IV ×5 (02:20→20:11)
--- NOTE | 2025-10-02 03:19 | DOWNTIME ---
There was a [employer] Director Downtime on 10/02/2025 from 0100 to 10/02/2025 at 0255. Downtime documentation of patient's care, including medication administrations, has been reconciled in the electronic record per guidelines. Refer to the
patient's paper chart under the miscellaneous tab to see printed paper medication records and downtime forms.
[2025-10-02] MEDS: FLEXBUMIN 100 IV (03:32)
[2025-10-02 04:12] LABS: B.E. -0.9 mmol/L; HCO3 23.4 mmol/L (21-28); O2 Saturation % 99.3 % (94-98); PCO2 36 mmHg (35-48); PO2 113 mmHg (83-108); Potassium 4.1 mMOL/L (3.5-5.1)
[2025-10-02 04:29] LABS: Hematocrit 24.3 % (39.0-52.0); Hemoglobin 8.2 g/dL (13.0-18.0); Mean Corp Hgb Conc. 33.7 g/dL (33.0-37.0); Mean Corpuscular Volume 87.1 fL (80.0-94.0); Platelet Count 140 10^3/uL (130-400); Red Cell Dist. Width 15.7 % (11.5-14.5)
[2025-10-02 04:40] LABS: Blood Urea Nitrogen 42 mg/dl (9-20); Calcium 9.1 mg/dl (8.4-10.2); Carbon Dioxide 25 mmol/L (22-30); Chloride 105 mmol/L (98-107); Estimated Creatinine Clearance 31 ml/min; Glucose 95 mg/dl (70-99); Magnesium 2.3 mg/dl (1.6-2.3); Potassium 4.0 mmol/L (3.5-5.1); Sodium 133 mmol/L (135-145); eGFR 32.71
[2025-10-02 04:50] LABS: Glucose - Point of Care 110 mg/dl (70-99)
--- NOTE | 2025-10-02 05:15 | PTCARENOTE ---
Pt reassessed. Neuro assessment unchanged. Pt converted to SR w/ PACs / PVCs ~0230. HR 70-80s. BP 120-130s/60s. Pt maintained on ETT. Setting as documented, SIMV. FiO2 60%. POX 98%. See worklist for full settings. CTx5 assessment unchanged, output
as documented. Kee catheter intact and draining tk urine. OG tube in place, low intermittent suction, output brown. Current drips; insulin, precedex, and dobutamine. All surgical sites stable. Repositioned as documented. Ordered labs sent. B/L
heel foams applied.
[2025-10-02 06:14] LABS: Glucose - Point of Care 106 mg/dl (70-99)
--- NOTE | 2025-10-02 06:44 | W.PN.CT ---
Today's Communication / Plan
-
-pod #2, s/p post multiple chest re-explorations on 09/30/25
-drips: Dobut 2.5, Levo is off, Insulin, Precedex 1
-failed extubation trial on 10/01- had to be reintubated 1 hr later
-remains intubated- pO2 69 on 40% fiO2- increased fiO2 to 60%. Currently, AC 22/500/60% fiO2/ peep 5. ABG 7.42/ 36/ 113/ 23.4/ 99.3
-2:1 AV block on 10/01- Amio drip was stopped, then went into a-fib 90s and converted spontaneously to nsr @ ~2am 10/02
-Cr is trending up - 2.0 today
-wean off drips as tolerated
-wean off vent as tolerated
Assessment / Plan
-
- Delayed hemorrhage 12 days post cardiac surgery- s/p Redo sternotomy; Washout and evacuation of approximately 1.5 L of clot from the left chest; Ligation of mammary vein and distal mammary stump; Ligation of large vein towards the neck; Thorough
evaluation of all bypass grafts by Dr Cartagena on 09/30/25 at 2:30am
- Recurrent hemorrhage with hemodynamic instability- s/p Reexploration of chest, redo sternotomy, evacuation of large clot between the left lower lobe and the pericardium the left side, inspection of all surgical sites which were all hemostatic,
packed with hemostatic agent, repair of chest wall, left lateral thoracotomy connected to the sternotomy incision for visualization, thoracotomy repair by Dr. Cartagena on 09/30/25 at 4:45 pm
- Continued hemorrhage - s/p angiogram of thoracic aorta and L bronchial artery by IR, Dr. Andrade. Findings at angio suspicious for small volume contrast extravasation distal branch L bronchial artery. Secondary to size and tortuosity of the aorta,
diminutive caliber and tortuosity of L bronchial artery, attempts to advance a microcatheter into the L bronchial artery for embolization were unsuccessful. No immediate procedural complications.
s/p Anterior lateral thoracotomy, ligation of arterial vessel, cautery of raw surface and lung tissue for hemostasis, multiple rounds of packing and serial evaluations of all quadrants, application of topical hemostatic agents, reapproximated ribs
and closure thoracotomy by Dr. Cartagena on 09/30/25 at 10:47 pm
- S/p Recent CABG x 4 surgery with planned Impella 5.5 support on 09/17/25 and discharged home with VN on 09/24/25
- Admitted 09/29/25 with dizziness and near syncope- Hemorrhagic shock, acute blood loss anemia
- Ischemic cardiomyopathy with EF of 35%
- Significant pleural effusion with respiratory failure
- Chronic lymphocytic leukemia with chronically elevated white count and thrombocytopenia
- Thrombocytopenia
- Multivessel coronary artery disease- hx PCI with stent
- Chronic systoli CHF with reduced EF
- HTN/HLD
- BPH
- hx Cataracts
- Carpal tunnel and hernia repair
- Cholecystectomy
- MONO on CKD
- 12 beat NSVT on 10/01
- A-fib 10/01 - converted spontaneously to nsr
Discussed patient care with: Nursing and Care Team
Subjective
-
Date of Service: October 02, 2025
Objective Data
-
Lab Results
10/02/25 03:55
10/02/25 03:55
PT 17.6 Sec (11.4-14.6) H 10/01/25 03:36
INR 1.42 10/01/25 03:36
APTT 33.5 Sec (23.4-35.0) 10/01/25 03:36
Vital Signs
Vital Signs
Temp Pulse Resp BP Pulse Ox
98.9 F 78 22 147/76 98
10/02/25 06:00 10/02/25 06:00 10/02/25 06:00 10/02/25 06:00 10/02/25 06:00
CT Intake/Output/Weight
10/01/25 10/01/25 10/02/25
06:59 18:59 06:59
Intake Total 1146.2 / 3791.1 1302.0 / 2095.0 793.0 / 2095.0
Output Total 480 / 1920 670 / 1535 865 / 1535
Balance 666.2 / 1871.1 632.0 / 560.0 -72.0 / 560.0
SaO2: 98
Physical Exam
-
General: Other (sedated, intubated)
Cardiovascular: Regular rate & rhythm, No Murmurs and Rub
Respiratory: Decreased Breath Sounds
Sternum: Stable
Incision: Clean, Dry and Intact
Abdomen: soft, nontender, nondistended +decreased bowel sound
Extremities: Edema +2 (feet b/l)
s
Data Reviewed
-
Lab Results: Results Reviewed
Medications: Active Meds Reviewed
Chest X-Ray: Report Reviewed and Image Reviewed
ECG: Report Reviewed and Image Reviewed
[2025-10-02 07:07] LABS: Glucose - Point of Care 89 mg/dl (70-99)
[2025-10-02] MEDS: NSS (PRESERVATIVE FREE) 10 ML IV (07:41)
[2025-10-02] MEDS: LIDOCAINE 4% PATCH 1 PATCH TOPICAL (07:41)
[2025-10-02] MEDS: PROTONIX IV 40 MG IV (07:41)
[2025-10-02] MEDS: BACTROBAN 2% OINTMENT 1 APPLIC NASAL ×2 (07:42→19:58)
--- NOTE | 2025-10-02 07:51 | PTCARENOTE ---
Received pt from shift supervisor melting RN at 0700. Pt RASS -1 - -2, Following commands, moving all extremities, pupils 2, equal, reactive. In NSR w/ frequent PVCs and PACs, rub audible, palpable radial pulses, doppler pt and dp. +2 edema. hypoactive bowel
sounds, OGT to LIWS, green/brown bile, adler in place, drainage clear yellow urine. ET tube 8.0 24 @ lip,On SIMV FIO2 60% TV 500, RR 22, PS 5, peep of 5, dim breath sounds B/L, 5 CT to -20 wall suction, no airleak or crepitus, serosanguineous
drainage. Dobut, insulin, precedex infusing, see flowsheet. LIJ cordis, [address] See nursing assessment for full documentation.
Dr Mcclure at bedside reviewed CXR from this am, plan to bronch prior to extubation.
CTNP at bedside, dec dobut to 1.5 mg/kg/min, keep insulin gtt infusing, give PO amio.
--- NOTE | 2025-10-02 08:04 | W.PN.INTV ---
Today's Communication / Plan
Recommendations
- Start 3% and Albuterol nebulized
- Bronchoscopy and airway clearance today and BAL
- SAT/SBT
- Extubate to BIPAP if tolerates SAT/SBT well
Assessment
-
80-year-old gentleman with delayed hemorrhage, 12 days post cardiac surgery, s/p redo sternotomy, washout and evacuation of approximately 1.5 L of clot from left chest, ligation of mammary vein and distal mammary stump, ligation of large vein
towards the neck, POD # 3
09/30, recurrence of left hemothorax, s/p reexploration and hematoma evacuation, POD#2.
09/30, persistent hemorrhagic chest tube out put, IR evaluation suggested active arterial extravasation, s/p return to the OR, ligation of arterial vessel and electrocautery, POD#2
Titrate off pressors per protocol, currently MAP is 81, Levophed weaned off. Dobutamine infusing @ 2.5
ECHO from 09/23, LVEF 40 to 45%.
Management of chest tubes per primary service.
Intubated/sedated, initiate SAT when able. Currently on precedex infusion
RASS goal of 0 to -1
Intubated for procedure, SBT trial when patient able to spontaneously breath
Current vent settings: Volume AC, 500/22/40%/5.
AB.42/36/113
10/01, patient was extubated, had to be re-intubated for respiratory distress.
CXR with RUL volume loss.
Initiate 3% NS and Albuterol TID for airway clearance
WBC elevated, plan for inspection bronchoscopy for airway clearance and BAL.
No prior history of pulmonary disease, except for 4 mm nodule in the right lower lobe.
Aspiration precautions
Encouraged incentive spirometry, OOB/ambulation/early mobility
Advance diet as tolerated following extubation
GI prophylaxis: Protonix
Monitor critical I/O's
Kee/chest tube output
Hb/platelets postoperatively stable. S/p PRBC, hemoglobin was as low as 7.6. Most recent 8.2.
Trend CBC for now
Can transfuse if indicated for Hb <7, plt <50 in surgical patients
DVT prophylaxis including SCDs
Other medical diagnoses:
- Acute blood loss anemia due to delayed hemorrhage post CABG, s/p redo sternotomy x 3, and evacuation of clot as well as ligation of mammary vein, subsequent arterial ligation and cautery.
- Shock, hemorrhagic and suspect concomitant cardiogenic. Resolving. Off levophed now. Dobutamine infusing.
- Atrial fibrillation with rapid ventricular rate. Off amiodarone infusion now.
- History of coronary artery disease, s/p coronary artery bypass grafting 09/2025, patent graft as per cardiac catheterization on 09/29.
- Ischemic cardiomyopathy, HFrEF. Bumex resumed.
- Hypertension, hyperlipidemia
- History of CLL with chronic thrombocytopenia
- GERD
- Depression/anxiety
- History of SYDNI
- History of BPH
Critical Care time [48] mins -- The patient is admitted for acute critical illness for the treatment of vital organ failure and/or prevention of further life-threatening conditions. Total care includes time spent in review of history, physical exam,
medications, hemodynamic/ventilator parameters, laboratory data, imaging and discussion with house staff, pharmacy, respiratory therapy, mail distributor, and nursing
Updated patient's . Obtained verbal consent for Bronchoscopy.
Data:
CXR 09/2025: Interval advancement of the pulmonary artery catheter with tip in appropriate positioning. Stable appearance of the additional support lines and tubes.
Unchanged mild basilar opacities favored to represent atelectasis. No pneumothorax.
CTA Chest 09/2025: New moderate size slightly high attenuation density pericardial effusion especially posteriorly (slight increased density on postcontrast images) with findings suspicious for small volume active bleeding within as detailed above
as well as new moderate size left pleural effusion in comparison to recent prior CTA. Findings discussed by telephone with Dr. Nash in the emergency department at approximately [address] Cartagena at approximately 1738 hours on September
2024.
Slightly high attenuation density fluid suggested within small volume urinary bladder as well as Kee catheter possibly representing some blood products/proteinaceous material.
Additional nonurgent findings as detailed above, some of which include left lower lobe consolidation, small right pleural effusion, bilateral simple renal cysts and prior cholecystectomy.e
[facility] 09/29/2025: 1: Widely patent grafts with no obvious source of bleeding.
2: Unremarkable aortogram in QATARI and THOMASON projections with no obvious source of bleeding.
ECHO 09/23/2025: 1. Ejection fraction is 40-45% by visual assessment.
2. Normal left ventricular size, wall thickness and systolic function. No regional wall motion abnormalities are seen.
3. Aortic sclerosis with trace aortic regurgitation is seen.
4. Left ventricular wall motion is diffusely hypokinetic.
5. Thickened mitral leaflets with adequate leaflet excursion. Mild mitral annular calcification. Trace mitral regurgitation.
Subjective Dataa
Subjective Data
Date of Service:
Date of Service: October 02, 2025
Subjective:
Currently intubated, mechanically ventilated and sedated
Review of Systems
General: Unobtainable - Sedation
Objective Data
Data Reviewed
Vital Signs / I&O / Oxygen:
Vital Signs
Temp Pulse Resp BP Pulse Ox
98.4 F 76 22 144/77 99
10/02/25 07:00 10/02/25 07:30 10/02/25 07:30 10/02/25 07:00 10/02/25 07:30
Intake and Output
10/01/25 10/02/25 10/03/25
06:59 06:59 06:59
Intake Total 3461.8 / 3791.1 2095.0 / 2141.0 46.0 / 46.0
Output Total 1890 / 1920 1535 / 1605 70 / 70
Balance 1571.8 / 1871.1 560.0 / 536.0 -24.0 / -24.0
SaO2 [SIMV] 98
SaO2 [CPAP] 98
SaO2 [A/C] 96
SaO2 99
Nasal Cannula flow liters per 4
minute
Physical Exam
General: Comfortable
HEENT: Normocephalic
Cardiovascular: S1-S2 and Peripheral Edema
Respiratory: Clear (Decreased air entry right upper lobe)
GI: Soft and Non Distended
Neurology: Other (Currently sedated on Precedex)
Skin: Warm
Labs/Micro/Reports
Lab Data
10/02/25 03:55
Laboratory Results
10/01/25 10/01/25 10/01/25
09:40 11:21 12:42
pH 7.30 L 7.39 7.40
pCO2 48 38 37
pO2 66 L 78 L 93
HCO3 23.6 23.0 22.9
O2 Delivery Level Cpa fio2 40%
10/01/25 10/02/25
21:40 03:55
pH 7.40 7.42
pCO2 37 36
pO2 69 L 113 H
HCO3 22.9 23.4
O2 Delivery Level 60% fio2
[2025-10-02] MEDS: SODIUM CHLORIDE 3% FOR INHALATION 1 VIAL INH ×3 (08:12→19:15)
[2025-10-02] MEDS: VENTOLIN NEBULES 2.5 MG INH ×3 (08:12→19:15)
[2025-10-02 08:18] LABS: Glucose - Point of Care 89 mg/dl (70-99)
[2025-10-02] MEDS: SUBLIMAZE 25 MCG IV (08:32)
[2025-10-02] MEDS: FLEXERIL 5 MG PO ×2 (08:36→16:58)
[2025-10-02] MEDS: MAGNESIUM OXIDE PO (08:37)
[2025-10-02] MEDS: PACERONE 200 MG PO ×2 (08:37→16:58)
[2025-10-02] MEDS: SENOKOT PO (08:38)
[2025-10-02] MEDS: BUMEX 2 MG IV (08:47)
[2025-10-02] MEDS: BUMEX 100 IV (08:47)
[2025-10-02] MEDS: ROXICODONE 5 MG TUBE ×3 (08:51→19:58)
--- NOTE | 2025-10-02 08:52 | PTCARENOTE ---
Dr Mcclure and respiratory at bedside; bedside bronchoscopy preformed by MD; Fentanyl bolus given per order; cultures collected and sent to the lab.
--- NOTE | 2025-10-02 08:52 | OR.RPT ---
Operative Report
Operative Report
Bronchoscopy and BAL, right upper lobe
Indication: Concern for airway secretions, volume loss right upper lobe
Consent: Verbal consent obtained from patient's spouse via phone
Procedure: Patient was currently intubated, sedated with Precedex. Additional 25 mcg of fentanyl IV x 1 was given in edition local lidocaine was used for the procedure. Flexible bronchoscope was advanced through the ET tube. Lidocaine was sprayed
at the arnaldo. Left mainstem was intubated and left upper and lower lobe were examined. All segments were patent no significant secretions noted. Scope was withdrawn back to arnaldo which was sharp and unremarkable. Right middle lobe and right
lower lobe were then inspected with mild secretions no purulence, bleeding or mass effect noted. Scope was then advanced into right upper lobe which was essentially unremarkable without any significant air secretions or mucous plugging. All
segments were patent. Scope was wedged in right upper lobe anterior segment and 30 mL of saline was injected and a BAL was performed, required to 20 mL of affluent was collected and sent for Gram stain and cultures.
Scope was then withdrawn and procedure concluded. Patient tolerated the procedure well. No hemodynamic instability or hypoxia noted.
Complications: None
Blood loss: None
Time spent: 20 minutes
Date of procedure: 10/02/2025
[2025-10-02 10:11] LABS: Glucose - Point of Care 104 mg/dl (70-99)
[2025-10-02] MEDS: TYLENOL ORAL SOLUTION 650 MG TUBE ×3 (11:09→22:10)
--- NOTE | 2025-10-02 11:42 | PTCARENOTE ---
Pt reassessment unchanged. Rass -2, int agitated, resolves w/ PRN dilaudid and PO oxy. Remains in NSR w/PACs and PVCs, BP 90-120/40-60s. Pulses the same. Cont on SIMV on vent, PS 5, Peep 8, RR 22, TV 500, fio2 40%. L pleural CT removed. Inc urine
output with bumex gtt. Insulin, dobut, precedex, bumex gtt infusing. See flowsheets for further documentation.
[2025-10-02 11:55] LABS: Glucose - Point of Care 128 mg/dl (70-99)
[2025-10-02 13:47] LABS: Blood Urea Nitrogen 50 mg/dl (9-20); Calcium 8.6 mg/dl (8.4-10.2); Carbon Dioxide 26 mmol/L (22-30); Chloride 105 mmol/L (98-107); Estimated Creatinine Clearance 34 ml/min; Glucose 99 mg/dl (70-99); Potassium 3.7 mmol/L (3.5-5.1); Sodium 133 mmol/L (135-145); eGFR 34.79
[2025-10-02 14:01] LABS: Glucose - Point of Care 83 mg/dl (70-99)
--- NOTE | 2025-10-02 14:05 | WOUNDNOTE ---
SACRAL COCCYX/GLUTEAL CLEFT
[2025-10-02] MEDS: DECADRON 10 MG IV (14:09)
--- NOTE | 2025-10-02 14:14 | WOUNDNOTE ---
[facility] RN NOTE: Patient visited for DTI vs Stage 2 to sacral/coccyx. Stage 2 PI to sacrum was POA. Upon assessment the stage 2 wound is surrounded by chronic appearing discolored skin. No DTI noted. Will recommend Calazime to open areas covered by
sacral silicone border foam. Orders updated. Discussed plan with and VARGHESE Hong. Per Gely, heels intact and new adhesive foam as applied today. He is on a Centrella Max air and turning schedule. Patient is currently intubated and has several
comorbidities. Wounds may worsen and new wounds may develop even with optimal care. Will follow as needed.
[2025-10-02] MEDS: KCL 50 IV ×2 (14:31→15:33)
--- NOTE | 2025-10-02 14:35 | CM ---
Chart reviewed. Patient is currently in critical condition and intubated. Patient was independent of ADLS, lives with his in a [facility], [address], 0 [place], ambulates with a RW. Patient will need a functional assessment to
determine discharge needs. CM to follow
--- NOTE | 2025-10-02 14:48 | PTCARENOTE ---
Respiratory therapist at the bedside, SPT started.
--- NOTE | 2025-10-02 15:12 | PTCARENOTE ---
Pt reassessment unchanged. Int agitated, improves w/IV Dilaudid and versed. NSR w/PACs and PVCs, maintaining systolic goal. Switched over to SBT, tolerating thus far. Wound care saw pt and put in orders. Potassium given per order. Precedex, dobut,
insulin, bumex gtt infusing. See flowsheets for further documentation.
[2025-10-02 15:38] LABS: ALT (SGPT) 11 U/L (0-50); AST (SGOT) 35 U/L (17-59); Albumin 2.3 g/dl (3.5-5.0); Alkaline Phosphatase 57 U/L (38-126); Total Protein 4.1 g/dl (6.3-8.2)
--- NOTE | 2025-10-02 16:11 | PTCARENOTE ---
PICC team at the bedside to place PICC, versed given per order. Respiratory at the bedside, changed vent back to SIMV FIO2 40%, PS 5, PEEP 8, TV 500.
[2025-10-02 16:29] LABS: Glucose - Point of Care 108 mg/dl (70-99)
[2025-10-02] MEDS: NSS IV (16:43)
[2025-10-02] MEDS: NEURONTIN 300 MG TUBE ×2 (16:58→22:09)
--- NOTE | 2025-10-02 17:40 | W.PN.CARDCBS ---
Today's Communication / Plan
-
Postop care
Impression / Plan
-
Primary utility teller: Dr. Paez of [facility] [place]
Impression:
Near syncope, hypotension with Hemorrhagic shock
s/p multiple chest reexplorations Sep 30 2025
Delayed post CABG bleeding, source unclear
Left hemothorax status post chest tube
Posterior pericardial effusion with contrast extravasation with concern delayed bleeding graft bleeding not demonstrated via urgent cardiac catheterization
NSVT, ventricular bigeminy
Postop anemia with acute blood loss requiring multiple transfusions
Elective CABG x 4 [VASQUEZ�LAD, SVG�PDA, SVG�DX�OM] with placement of a 5.5 Impella 09/17/[address] Cartagena
Ischemic cardiomyopathy with preoperative ejection fraction 15 to 20% and postoperative ejection fraction 40%
History of BPH with postoperative urinary retention requiring Kee catheter
Hypertension
Hyperlipidemia
SYDNI
Polycythemia vera
CLL with chronic thrombocytopenia
Spinal stenosis
GERD
Depression/anxiety
Echo Sep 23 2025: EF 40-45% no significant valve disease
Urgent bedside echo very limited Sep 29 2025 as below
Urgent left cath Sep 29 2025: Widely patent grafts with no obvious source of bleeding.
Plan:
Critically ill 80-year-old gentleman with hemorrhagic shock status post recent CABG with Impella on September 17, 2025.
-Left hemothorax status post chest tube in the ED
On Sep 30 early AM, the patient underwent Redo sternotomy and evacuation of 1.5L of clot from left hemithorax and anterior mediastinum. A mammary vein was noted to be bleeding and hemostasis achieved. The patient was transfused RBC's and Platelets
both pre and intraoperatively. He was transferred back to the CVICU intubated, on Dobutmine 5 and Levophed 2 at 02:30.
Continue postoperative care
Wean IV pressor and inotrope therapy as able - currently on Levophed and Dobutamine
Remains volume overloaded on exam. Agree with Bumex drip to optimize volume status.
Remains in sinus rhythm with ventricular ectopy
Agree with PO amiodarone
Replete K>4 and Mg>2
Monitor H&H and consider transfusion as needed. Dual antiplatelet therapy currently on hold.
Remains intubated, vent management as per pulmonary/CT surgery
Discussed with nursing
HPI: I had the pleasure to meet Eyad Hackett along with his Harriet in ER bed 17 for evaluation of hypotension and several episodes of near syncope with falls and shortness of breath status post recent CABG x [address] Cartagena on September 17, 2025.
He is followed by Dr. Paez with [facility]. Reg has a history of ischemic cardiomyopathy with an ejection fraction 15% and known multivessel coronary artery disease who had a recent positive stress test and subsequent left heart catheterization
demonstrating multivessel coronary disease referred for CABG. Additionally, he has a history of hypertension, hyperlipidemia, BPH with urinary retention, CLL with chronic thrombocytopenia, and sleep apnea.
.
He was admitted electively September 15, 2025 and placed on a dobutamine drip and underwent diuresis for optimization prior to elective CABG x 4 [VASQUEZ�LAD, SVG�PDA, SVG�DX�OM] with placement of a 5.5 Impella 09/17/[address] Cartagena; impella was removed
on September 19. A repeat echocardiogram on dobutamine reported an improved ejection fraction around 40%. Postoperative course was complicated by hypotension, acute on chronic renal insufficiency and urinary retention. He was weaned off inotropes,
pressors and midodrine prior to discharge home on September 24. His hospital course was complicated by urinary retention and he was discharged home with a Kee catheter. His discharge medications include aspirin 81 mg daily, Plavix 75 mg daily,
metoprolol succinate 12.5 mg twice daily, Bumex 2 mg daily, Jardiance 10 mg daily.
.
Patient and his states that he has been feeling fine since discharge until this morning. Following breakfast fell felt like he had to go to the bathroom and have a bowel movement however on his way to the restroom with the assistance of his
he became extremely shaky and weak. She was able to get him to the bathroom where he fell to his knees. She denies loss of consciousness or head trauma. He ultimately never had a bowel movement. He had 3 more near-syncopal events with
profound weakness and increasing shortness of breath prompting return to the emergency department. He denies chest pain or pressure. He denies fevers or chills. He denies chest wall or head trauma with falls. In the emergency department he was
noted to be hypotensive with initial blood pressures reportedly 60s and 70s systolic which responded initially to IV fluids. Initial chest x-ray showed widened mediastinum and globular heart with elevated left hemidiaphragm and a new large opacity
in the left hemithorax. Initial twelve-lead EKG was sinus rhythm with PACs and an incomplete left bundle branch block with ST-T wave abnormalities in the inferior lateral leads with prolonged QT at 500 ms not significantly changed from prior study.
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 Initial hemoglobin 8.6, hemoglobin 8.9 on day of discharge September 24. Platelets 357. Sodium 136, potassium 3.4. BUN and creatinine 23/1.4. Creatinine was 1.2
on day of discharge. I within normal limits. Cardiac troponin 0.065. proBNP 4700. Procalcitonin less than 0.05. Lactate 2.
.
Patient was seen and examined with Dr. Cartagena and CT surgery PA as well as ER physician Dr. Nash. Stat CTA of the chest demonstrated new large left pleural effusion and tiny right pleural effusion. There was a pericardial effusion posteriorly
which demonstrated contrast extravasation and pooling raising concern for delayed bleeding from one of the grafts. A chest tube was placed by CT surgery in the emergency room with significant bloody drainage, totaling 2.7 L following urgent cardiac
catheterization. Patient was transported to cardiac cath where he was electively intubated with anesthesia. Interventional cardiology performed emergent coronary angiography and arteriogram with no obvious extravastion identified in grafts or at
site of Impella graft. He was then transported to the CVICU for close monitoring on Levophed having received 3 units packed red blood cells.
Progress Note - Electrician Maintenance
Subjective
Date of Service: October 02, 2025
No acute events. Remains intubated and sedated in the CVICU.
Objective
Labs:
10/02/25 03:55
Labs
Hgb 8.2 g/dL (13.0-18.0) L 10/02/25 03:55
Hct 24.3 % (39.0-52.0) L 10/02/25 03:55
Plt Count 140 10^3/uL (130-400) 10/02/25 03:55
PT 17.6 Sec (11.4-14.6) H 10/01/25 03:36
INR 1.42 10/01/25 03:36
APTT 33.5 Sec (23.4-35.0) 10/01/25 03:36
Sodium 133 mmol/L (135-145) L 10/02/25 11:54
Potassium 3.7 mmol/L (3.5-5.1) 10/02/25 11:54
BUN 50 mg/dl (9-20) H 10/02/25 11:54
Creatinine 1.9 mg/dL (0.7-1.3) H 10/02/25 11:54
Glucose 99 mg/dl (70-99) 10/02/25 11:54
Vital Signs and I&O:
Vital Signs
Temp Pulse Resp BP Pulse Ox
97.8 F 76 24 133/65 97
10/02/25 17:00 10/02/25 17:00 10/02/25 17:00 10/02/25 15:00 10/02/25 17:00
Vital Signs
Temp Pulse Resp BP Pulse Ox
97.8 F 76 24 133/65 97
10/02/25 17:00 10/02/25 17:00 10/02/25 17:00 10/02/25 15:00 10/02/25 17:00
Intake & Output
11/17/25 11/18/25 11/19/25 11/20/25
06:59 06:59 06:59 06:59
Intake Total 1660.7 / 2004.3 3461.8 / 3791.1 2095.0 / 2141.0 658.1 / 658.1
Output Total 3910 / 4060 1890 / 1920 1535 / 1605 1265 / 1265
Balance -2249.3 / -2055.7 1571.8 / 1871.1 560.0 / 536.0 -606.9 / -606.9
Physical Exam
Physical Exam
Gen: NAD
HEENT: NC/AT, sclera anicteric
Neck: No JVD
CV: RRR, NL s1/s2, no M/R/G
Lungs: Mechanically ventilated. Chest tubes with sanguineous drainage.
Abd: S/ND
: Kee with tk urine.
Ext: 1+ LE edema
Skin: Warm, dry. Sternotomy CDI.
Neuro: Non-focal
[2025-10-02 17:54] LABS: Glucose - Point of Care 135 mg/dl (70-99)
[2025-10-02 18:28] LABS: Blood Urea Nitrogen 56 mg/dl (9-20); Calcium 8.5 mg/dl (8.4-10.2); Carbon Dioxide 24 mmol/L (22-30); Chloride 107 mmol/L (98-107); Estimated Creatinine Clearance 32 ml/min; Glucose 108 mg/dl (70-99); Potassium 4.1 mmol/L (3.5-5.1); Sodium 136 mmol/L (135-145); eGFR 32.71
[2025-10-02] MEDS: MAGNESIUM OXIDE 400 MG PO (19:57)
[2025-10-02] MEDS: SENOKOT 8.6 MG PO (19:57)
[2025-10-02] MEDS: REMOVE LIDOCAINE PATCH REMOVE (19:59)
--- NOTE | 2025-10-02 20:00 | PTCARENOTE ---
assumed care of patient @ 1900. recieved pt lying in bed
Neuro- Rass -2 when undisturbed. when aroused, +1 or +2. easily arousable to verbal or tactile stimuli. not following commands appropriately. REGAN OTT. restrained with soft l and r wrist restraints.
CV-NSR on tele with pvcs and pacs. BP 100s-110s / 50s, map ~ 70. doppler lower pulses. +2 edema to feet. +rub on auscultation.
Lungs- 8.0 tube 24 @ lip. SIMV 40%, 5 psv, 8 peep, TV 500, RR 22. pulling good volumes on vent. lungs diminished. suctioned for small blood tinged secretions. CTx4 present to wall suction no air leak, tidaling or crepitus noted.
GI- hypo bs, OGT at 75 to low intermittent suction. holding off on trickle feeds per CTNP.
- adler present draining clear yellow urine.
Skin- antibacterial adhesive dressings x2 present on chest. previous SVG sites PARTS REMOVER, scabbed. R thoractomy inscs closed with glue. L pleural CT dressing saturated with serosang drainage, changed. Other chest tube dressing CDI.
Lines-L IJ cordis, L AC 20, R picc triple lumen, L A line all patent. central lines zeroed, flushed. waiting on Xray results for PICC placement before use
Meds- Dobut at 1.5, bumex at 1, precedex at 1.2, insulin per protocol .
[2025-10-02 20:22] LABS: Glucose - Point of Care 105 mg/dl (70-99)
[2025-10-02 22:03] LABS: Glucose - Point of Care 117 mg/dl (70-99)
[2025-10-02] MEDS: FERRLECIT 110 MG IV (22:10)
[2025-10-02] MEDS: LIPITOR 40 MG TUBE (22:10)
[2025-10-02] MEDS: PACERONE 200 MG TUBE (22:10)
[2025-10-02] MEDS: FLEXERIL 5 MG TUBE (22:10)
[2025-10-02] MEDS: DOBUTREX 250 IV (22:30)
--- NOTE | 2025-10-02 23:00 | PTCARENOTE ---
PICC Ok to use per IV team, CTPA placed order. no change in patient assessment. labs drawn and sent .
[2025-10-02 23:20] LABS: Blood Urea Nitrogen 58 mg/dl (9-20); Calcium 8.4 mg/dl (8.4-10.2); Carbon Dioxide 25 mmol/L (22-30); Chloride 107 mmol/L (98-107); Estimated Creatinine Clearance 30 ml/min; Glucose 112 mg/dl (70-99); Magnesium 2.4 mg/dl (1.6-2.3); Potassium 3.9 mmol/L (3.5-5.1); Sodium 134 mmol/L (135-145); eGFR 30.85
[2025-10-03 00:02] LABS: Glucose - Point of Care 123 mg/dl (70-99)
[2025-10-03] MEDS: KCL 50 IV ×5 (00:07→18:03)
[2025-10-03] MEDS: VERSED 0.25 MG IV (01:15)
[2025-10-03 02:03] LABS: Glucose - Point of Care 117 mg/dl (70-99)
[2025-10-03] MEDS: ROXICODONE 5 MG TUBE ×2 (02:15→08:22)
--- NOTE | 2025-10-03 02:44 | W.PN.CT ---
Today's Communication / Plan
-
-pod #3, s/p post multiple chest re-explorations for bleeding on 09/30/25
-no issues overnight
-mVO2 is 61.6. drips: Dobut 1.5, Levo is off, Insulin, Precedex 1.2, Bumex 1
-CT outputs: 2 meds 75/195, 2 pleru 70/210 in 12/24 hrs
-failed extubation trial on 10/01- had to be reintubated 1 hr later. Bronchoscopy on 10/02 was unremarkable. Bronchial wash was sent for cx/gram stain- pending
-remains intubated- Currently, SIMV 22/500/40% fiO2/ peep 8. ABG 7.43/36/87/23.9/99.52
-2:1 AV block on 10/01- Amio drip was stopped, then went into a-fib 90s and converted spontaneously to nsr @ ~2am 10/02
-Cr is 2.1 today (2.1 on 10/02, and 1.3-1.4 preop)
-wean off drips as tolerated
-wean off vent as tolerated
Assessment / Plan
-
- Delayed hemorrhage 12 days post cardiac surgery- s/p Redo sternotomy; Washout and evacuation of approximately 1.5 L of clot from the left chest; Ligation of mammary vein and distal mammary stump; Ligation of large vein towards the neck; Thorough
evaluation of all bypass grafts by Dr Cartagena on 09/30/25 at 2:30am
- Recurrent hemorrhage with hemodynamic instability- s/p Reexploration of chest, redo sternotomy, evacuation of large clot between the left lower lobe and the pericardium the left side, inspection of all surgical sites which were all hemostatic,
packed with hemostatic agent, repair of chest wall, left lateral thoracotomy connected to the sternotomy incision for visualization, thoracotomy repair by Dr. Cartagena on 09/30/25 at 4:45 pm
- Continued hemorrhage - s/p angiogram of thoracic aorta and L bronchial artery by IR, Dr. Andrade. Findings at angio suspicious for small volume contrast extravasation distal branch L bronchial artery. Secondary to size and tortuosity of the aorta,
diminutive caliber and tortuosity of L bronchial artery, attempts to advance a microcatheter into the L bronchial artery for embolization were unsuccessful. No immediate procedural complications.
s/p Anterior lateral thoracotomy, ligation of arterial vessel, cautery of raw surface and lung tissue for hemostasis, multiple rounds of packing and serial evaluations of all quadrants, application of topical hemostatic agents, reapproximated ribs
and closure thoracotomy by Dr. Cartagena on 09/30/25 at 10:47 pm
- S/p Recent CABG x 4 surgery with planned Impella 5.5 support on 09/17/25 and discharged home with VN on 09/24/25
- Admitted 09/29/25 with dizziness and near syncope- Delayed post-CABG bleeding /Hemorrhagic shock, acute blood loss anemia
- Ischemic cardiomyopathy with EF of 35%
- Significant pleural effusion with respiratory failure
- Chronic lymphocytic leukemia with chronically elevated white count and thrombocytopenia
- Thrombocytopenia
- Multivessel coronary artery disease- hx PCI with stent
- Chronic systoli CHF with reduced EF
- HTN/HLD
- BPH
- hx Cataracts
- Carpal tunnel and hernia repair
- Cholecystectomy
- MONO on CKD (Cr baseline 1.3-14)
- 12 beat NSVT on 10/01
- A-fib 10/01 - converted spontaneously to nsr
Discussed patient care with: Nursing and Care Team
Subjective
-
Date of Service: October 03, 2025
Objective Data
-
PT 17.6 Sec (11.4-14.6) H 10/01/25 03:36
INR 1.42 10/01/25 03:36
APTT 33.5 Sec (23.4-35.0) 10/01/25 03:36
Vital Signs
Vital Signs
Temp Pulse Resp BP Pulse Ox
98.2 F 97 20 133/65 97
10/03/25 02:00 10/03/25 02:10 10/03/25 02:10 10/02/25 15:00 10/03/25 02:10
CT Intake/Output/Weight
10/02/25 10/02/25 10/03/25
06:59 18:59 06:59
Intake Total 793.0 / 2141.0 711.6 / 1097.6 386.0 / 1097.6
Output Total 865 / 1605 1400 / 2700 1300 / 2700
Balance -72.0 / 536.0 -688.4 / -1602.4 -914.0 / -1602.4
SaO2: 97
Physical Exam
-
General: Other (sedated, intubated)
Cardiovascular: Regular rate & rhythm, No Murmurs and Rub
Respiratory: Decreased Breath Sounds
Sternum: Stable
Incision: Clean, Dry and Intact
Abdomen: soft, nontender, nondistended +decreased bowel sound
Extremities: Edema +2 (feet b/l)
Data Reviewed
-
Lab Results: Results Reviewed
Medications: Active Meds Reviewed
Chest X-Ray: Report Reviewed and Image Reviewed
ECG: Report Reviewed and Image Reviewed
--- NOTE | 2025-10-03 03:00 | PTCARENOTE ---
labs drawn and sent . no change in patient assessment .
[2025-10-03] MEDS: PRECEDEX 100 IV ×3 (03:22→10:34)
[2025-10-03] MEDS: DILAUDID 1 MG IV ×2 (03:41→08:32)
[2025-10-03 03:45] LABS: Hematocrit 24.7 % (39.0-52.0); Hemoglobin 8.3 g/dL (13.0-18.0); Mean Corp Hgb Conc. 33.6 g/dL (33.0-37.0); Mean Corpuscular Volume 88.2 fL (80.0-94.0); Platelet Count 135 10^3/uL (130-400); Red Cell Dist. Width 16.0 % (11.5-14.5)
[2025-10-03 03:47] LABS: B.E. -0.3 mmol/L; HCO3 23.9 mmol/L (21-28); O2 Saturation % 99.2 % (94-98); PCO2 36 mmHg (35-48); PO2 87 mmHg (83-108); Potassium 4.1 mMOL/L (3.5-5.1)
[2025-10-03 04:10] LABS: Glucose - Point of Care 105 mg/dl (70-99)
[2025-10-03 04:16] LABS: ALT (SGPT) < 10 U/L (0-50); AST (SGOT) 32 U/L (17-59); Albumin 2.3 g/dl (3.5-5.0); Alkaline Phosphatase 66 U/L (38-126); Blood Urea Nitrogen 62 mg/dl (9-20); Calcium 8.4 mg/dl (8.4-10.2); Carbon Dioxide 25 mmol/L (22-30); Chloride 108 mmol/L (98-107); Estimated Creatinine Clearance 30 ml/min; Glucose 94 mg/dl (70-99); Magnesium 2.5 mg/dl (1.6-2.3); Potassium 4.0 mmol/L (3.5-5.1); Sodium 139 mmol/L (135-145); Total Protein 4.2 g/dl (6.3-8.2); eGFR 30.85
[2025-10-03] MEDS: BUMEX 100 IV (04:36)
[2025-10-03] MEDS: TYLENOL ORAL SOLUTION 650 MG TUBE ×2 (05:34→10:24)
[2025-10-03 06:00] VITALS: BMI 31.2
[2025-10-03 06:05] LABS: Glucose - Point of Care 114 mg/dl (70-99)
[2025-10-03] MEDS: NSS 500 IV (07:16)
[2025-10-03] MEDS: SODIUM CHLORIDE 3% FOR INHALATION 1 VIAL INH ×3 (07:45→20:40)
[2025-10-03] MEDS: VENTOLIN NEBULES 2.5 MG INH ×3 (07:45→20:40)
[2025-10-03 08:02] LABS: Glucose - Point of Care 101 mg/dl (70-99)
[2025-10-03] MEDS: LIDOCAINE 4% PATCH 1 PATCH TOPICAL (08:20)
[2025-10-03] MEDS: MAGNESIUM OXIDE 400 MG TUBE (08:21)
[2025-10-03] MEDS: FLEXERIL 5 MG TUBE (08:21)
[2025-10-03] MEDS: PACERONE 200 MG TUBE (08:21)
[2025-10-03] MEDS: SENOKOT 8.6 MG TUBE (08:21)
[2025-10-03] MEDS: NSS (PRESERVATIVE FREE) 10 ML IV (08:22)
[2025-10-03] MEDS: PROTONIX IV 40 MG IV (08:22)
[2025-10-03] MEDS: NEURONTIN 300 MG TUBE (08:22)
[2025-10-03] MEDS: BACTROBAN 2% OINTMENT 1 APPLIC NASAL ×2 (08:23→21:16)
--- NOTE | 2025-10-03 08:27 | W.PN.INTV ---
Today's Communication / Plan
Recommendations
- Continue airway clearance measures for 24 hours
- SAT/SBT
- Extubate to BiPAP 12 x 5 when ready for extubation
- Continue diuresis, patient still is volume overloaded
Assessment
-
80-year-old gentleman with delayed hemorrhage, 12 days post cardiac surgery, s/p redo sternotomy, washout and evacuation of approximately 1.5 L of clot from left chest, ligation of mammary vein and distal mammary stump, ligation of large vein
towards the neck, POD # 4
09/30, recurrence of left hemothorax, s/p reexploration and hematoma evacuation, POD#3.
09/30, persistent hemorrhagic chest tube out put, IR evaluation suggested active arterial extravasation, s/p return to the OR, ligation of arterial vessel and electrocautery, POD#3
Titrate off pressors per protocol, currently MAP is 96, Levophed weaned off. Dobutamine infusing.
ECHO from 09/23, LVEF 40 to 45%.
Management of chest tubes per primary service.
Intubated/sedated, initiate SAT when able. Currently on precedex infusion
RASS goal of 0 to -1
Intubated for procedure, SBT trial when patient able to spontaneously breath
Current vent settings: Volume AC, 500/22/40%/8.
AB.40 3/87
10/01, patient was extubated, had to be re-intubated for respiratory distress.
10/02, Bronchoscopy and BAL of RUL performed for airway clearance.
CXR suggestive of bibasilar atelectasis, right upper lobe aeration improved
Continue 3% NS and Albuterol TID for airway clearance for 24 hours
WBC elevated, no purulent airway secretions noted. Right upper lobe BAL performed, so far cultures and Gram stain negative
No prior history of pulmonary disease, except for 4 mm nodule in the right lower lobe.
Aspiration precautions
Encouraged incentive spirometry, OOB/ambulation/early mobility
Advance diet as tolerated following extubation
GI prophylaxis: Protonix
Monitor critical I/O's
Kee/chest tube output
Hb/platelets postoperatively stable. S/p PRBC, hemoglobin was as low as 7.6. Most recent 8.2.
Trend CBC for now
Can transfuse if indicated for Hb <7, plt <50 in surgical patients
DVT prophylaxis including SCDs
Other medical diagnoses:
- Acute blood loss anemia due to delayed hemorrhage post CABG, s/p redo sternotomy x 3, and evacuation of clot as well as ligation of mammary vein, subsequent arterial ligation and cautery.
- Shock, hemorrhagic and suspect concomitant cardiogenic. Resolving. Off levophed now. Dobutamine infusing.
- Atrial fibrillation with rapid ventricular rate. Off amiodarone infusion now.
- History of coronary artery disease, s/p coronary artery bypass grafting 09/2025, patent graft as per cardiac catheterization on 09/29.
- Ischemic cardiomyopathy, HFrEF. Bumex infusion ongoing. Patient still appears to be quite volume overloaded. Fluid balance over last 24 hours, -3.5 L
- Hypertension, hyperlipidemia
- History of CLL with chronic thrombocytopenia
- GERD
- Depression/anxiety
- History of SYDNI
- History of BPH
Critical Care time [46] mins -- The patient is admitted for acute critical illness for the treatment of vital organ failure and/or prevention of further life-threatening conditions. Total care includes time spent in review of history, physical exam,
medications, hemodynamic/ventilator parameters, laboratory data, imaging and discussion with house staff, pharmacy, respiratory therapy, yarn sorter, and nursing
Data:
CXR 09/2025: Interval advancement of the pulmonary artery catheter with tip in appropriate positioning. Stable appearance of the additional support lines and tubes.
Unchanged mild basilar opacities favored to represent atelectasis. No pneumothorax.
CTA Chest 09/2025: New moderate size slightly high attenuation density pericardial effusion especially posteriorly (slight increased density on postcontrast images) with findings suspicious for small volume active bleeding within as detailed above
as well as new moderate size left pleural effusion in comparison to recent prior CTA. Findings discussed by telephone with Dr. Nash in the emergency department at approximately [address] Cartagena at approximately 1738 hours on September
2024.
Slightly high attenuation density fluid suggested within small volume urinary bladder as well as Kee catheter possibly representing some blood products/proteinaceous material.
Additional nonurgent findings as detailed above, some of which include left lower lobe consolidation, small right pleural effusion, bilateral simple renal cysts and prior cholecystectomy.e
LHC 09/29/2025: 1: Widely patent grafts with no obvious source of bleeding.
2: Unremarkable aortogram in BECKI and THOMASON projections with no obvious source of bleeding.
ECHO 09/23/2025: 1. Ejection fraction is 40-45% by visual assessment.
2. Normal left ventricular size, wall thickness and systolic function. No regional wall motion abnormalities are seen.
3. Aortic sclerosis with trace aortic regurgitation is seen.
4. Left ventricular wall motion is diffusely hypokinetic.
5. Thickened mitral leaflets with adequate leaflet excursion. Mild mitral annular calcification. Trace mitral regurgitation.
Subjective Dataa
Subjective Data
Date of Service:
Date of Service: October 03, 2025
Subjective:
Patient currently intubated, mechanically ventilated and sedated
Review of Systems
General: Unobtainable - Sedation
Genitourinary: Other
Objective Data
Data Reviewed
Vital Signs / I&O / Oxygen:
Vital Signs
Temp Pulse Resp BP Pulse Ox
100.0 F 97 22 133/65 96
10/03/25 07:21 10/03/25 08:00 10/03/25 08:00 10/02/25 15:00 10/03/25 08:10
Intake and Output
10/02/25 10/03/25 10/04/25
06:59 06:59 06:59
Intake Total 2095.0 / 2141.0 1269.8 / 1323.0 106.4 / 106.4
Output Total 1535 / 1605 4185 / 4555 735 / 735
Balance 560.0 / 536.0 -2915.2 / -3232.0 -628.6 / -628.6
SaO2 [CPAP/PSV] 96
SaO2 [SIMV] 99
SaO2 [CPAP] 97
SaO2 [A/C] 96
SaO2 99
Nasal Cannula flow liters per 4
minute
Physical Exam
General: Comfortable
HEENT: Normocephalic
Cardiovascular: S1-S2 and Peripheral Edema (2+ bilateral pitting edema, gradually improving)
Respiratory: Clear (Decreased air entry right upper lobe)
GI: Soft and Non Distended
Neurology: Other (Currently sedated on Precedex)
Skin: Warm
Labs/Micro/Reports
Lab Data
10/03/25 03:36
10/03/25 03:36
Laboratory Results
10/03/25
03:36
pH 7.43
pCO2 36
pO2 87
HCO3 23.9
O2 Delivery Level
Microbiology
10/02/25 09:27 Bronch Right Upper Lobe Gram Stain - Preliminary
--- NOTE | 2025-10-03 09:12 | PTCARENOTE ---
Patient received from marketing associate RN; VSS; Assessment as follows:
Neuro: Drowsy but arousable and able to follow some commands; Arousable to verbal stimuli; B/L wrist restraints in place; +2 pupils;
CV: SR with PAC's, PVC's, and brief episodes of afib on monitor; Friction rub present; B/L LE cap refill >2 seconds; +1 generalized anasarca and +2 B/L LE edema; PT and DP pulses present by doppler, +1 B/L radial pulses
Resp: Lungs diminished throughout; Scant amount of bloody, mariscal mucous; ETT 8.0 marked at 24 cm left lip; Ventilator settings SIMV 22/500/5/8 FiO2 40%; CTx4 connected to -20 cm suction draining serosanguineous drainage - no tidaling, crepitus, or air
leak noted
GI: Hypoactive BS: OGT at 75 cm at left lip connected to low intermittent suction draining brown drainage; No tube feed as per CVNP at this time
: Kee catheter in place draining clear, yellow urine
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
Sacral foam CDI
Lines: LIJ Cordis; Right PICC triple lumen; #20 LAC; Left brachial A-line in place - all lines zeroed and leveled
Meds: Dobutamine infusing at 1.5, Precedex infusing at 1.2, Bumex infusing at 1, and insulin infusing as per protocol
See nursing documentation for further information
[2025-10-03 10:08] LABS: Glucose - Point of Care 118 mg/dl (70-99)
[2025-10-03 10:42] LABS: B.E. 4.4 mmol/L; HCO3 28.4 mmol/L (21-28); O2 Saturation % 100.0 % (94-98); PCO2 39 mmHg (35-48); PO2 117 mmHg (83-108); Potassium 3.8 mMOL/L (3.5-5.1); Sodium 140 mMOL/L (136-145)
--- NOTE | 2025-10-03 10:43 | PTCARENOTE ---
Spontaneous breathing trial started at 0810; Initially patient hyperventilating when starting SBT and unable to slow RR when RN providing comfort at bedside - PRN IV Dilaudid 1 mg given with good effect; 1 U PRBC's ordered and transfusing - no
transfusing reactions noted at this time; ABG ordered and sent as per SAWYER Pérez; at bedside
[2025-10-03 11:35] VITALS: PULSE 102; PULSE 2
--- NOTE | 2025-10-03 11:38 | CM ---
Chart reviewed. Patient intubated on CPAP trial, remains in critical condition. Patient independent of ADLS, lives in a [address], [facility], ambulates with a RW. Patient will need a functional assessment to determine discharge needs. CM to follow
[2025-10-03 11:47] VITALS: BMI 31.2
[2025-10-03 11:50] VITALS: BP_SYST 79
[2025-10-03 11:58] LABS: B.E. - POC 0.8 mmol/L; Blood Urea Nitrogen - POC 55 mg/dl (3-120); Chloride - POC 110 mmol/L (96-111); Creatinine - POC 2.52 mg/dl (0.3-1.0); Glucose - POC 90 mg/dl (70-99); HCO3 - POC 25 mmol/L (21-28); Hematocrit - POC 25 % PCV (42-52); Hemodilution- POC No; Hemoglobin Calculated - POC 8.7; Ionized Calcium - POC 1.21 mmol/L (1.15-1.33); Lactate - POC 0.73 mmol/L (0.36-0.75); O2 Saturation %Calculated-POC 95.5 % (94-98); PCO2 - POC 39 mmHg (35-48); PO2 - POC 76 mmHg (83-108); Potassium - POC 4.1 mmol/L (3.5-5.1); Sodium - POC 144 mmol/L (136-145); Specimen Type - POC Arterial; pH - POC 7.43 (7.35-7.45)
[2025-10-03 12:09] LABS: Glucose - Point of Care 103 mg/dl (70-99)
--- NOTE | 2025-10-03 12:31 | PTCARENOTE ---
ABG reviewed with SAWYER Pérez; RT at bedside and patient extubated at 1135; SpO2 fell to 83% on 6L NC; Patient placed on BiPAP 10/19 10L and SpO2 92-96%; Patient with secretions at back of throat - RN and RT attempted to suction patient but
unable to get more than a scant amount of brown mucous; Patient's BP dropped to 79/50 following extubation - SAWYER Tolentino notified and Levophed infusion restarted; EPOC ABG completed at bedside; RR remains between 24-40 at this time; Precedex
infusion turned off; Patient's remains at bedside
[2025-10-03 13:00] VITALS: BP_SYST 111
[2025-10-03] MEDS: DECADRON 10 MG IV (13:58)
[2025-10-03 14:09] LABS: Glucose - Point of Care 103 mg/dl (70-99)
[2025-10-03] MEDS: FERRLECIT 110 MG IV (14:57)
--- NOTE | 2025-10-03 15:17 | W.PN.CARDCBS ---
Addendum entered and electronically signed by Sarita Blandon MD 10/03/25 16:40:
I saw and examined the patient.
The Criminal Investigator's note was reviewed and I agree with the note.
Comment:
He is here initially seen for critical illness, near syncope, hypotension and hemorrhagic shock. He is status post chest reexploration with delayed bleeding 09/30/2025. Recent CABG 09/17/2025 with Impella at that time.
He now is extubated. He was on BiPAP now on high flow oxygen.
EKG stable. Telemetry stable.
- Continue aggressive pulmonary toilet.
- Continue Bumex drip
- Dobutamine weaning off
- Renal insufficiency with fair creatinine.
Continue to follow closely given degree of illness.
Discussed with patient's family and nursing.
Original Note:
Today's Communication / Plan
-
continue bumex drip
follow Cr
repeat EKG
continue post op care
Impression / Plan
-
Primary yard manager: Dr. Paez of [facility]
Impression:
Near syncope, hypotension with Hemorrhagic shock
s/p multiple chest reexplorations Sep 30 2025
Delayed post CABG bleeding, source unclear
Left hemothorax status post chest tube
Posterior pericardial effusion with contrast extravasation with concern delayed bleeding graft bleeding not demonstrated via urgent cardiac catheterization
NSVT, ventricular bigeminy
Postop anemia with acute blood loss requiring multiple transfusions
Elective CABG x 4 [VASQUEZ�LAD, SVG�PDA, SVG�DX�OM] with placement of a 5.5 Impella 09/17/[address] Cartagena
Ischemic cardiomyopathy with preoperative ejection fraction 15 to 20% and postoperative ejection fraction 40%
History of BPH with postoperative urinary retention requiring Kee catheter
Hypertension
Hyperlipidemia
SYDNI
Polycythemia vera
CLL with chronic thrombocytopenia
Spinal stenosis
GERD
Depression/anxiety
Echo Sep 23 2025: EF 40-45% no significant valve disease
Urgent bedside echo very limited Sep 29 2025 as below
Urgent left cath Sep 29 2025: Widely patent grafts with no obvious source of bleeding.
Plan:
-80-year-old gentleman status post recent CABG with Impella on September 17, 2025 who presented back critically ill with hemorrhagic shock with CT placement in ER for hemothorax underwent multiple surgeries 09/30 ultimately resulting in anterolateral
thoracotomy, ligation of arterial vessel
-failed extubation 10/01, bronch 10/02 unremarkable. extubated 10/03, presently on biPAP
-on dobut @1.5
-on bumex gtt @1 with good response. Cr stable at 2.1
-hgb 8.3. DAPT currently on hold
-in sinus tach with PVCs on review of tele. amio/BB presently on hold as transiently had 2:1 av block 10/01, then went into afib then to SR 10/02. QTc was prolonged by EKG 10/01, will repeat
-prognosis remains guarded
-continue post op care
-d/w nursing, CT surg LOG FEEDER. d/w at bedside
HPI: I had the pleasure to meet Eyad Hackett along with his Harriet in ER bed 17 for evaluation of hypotension and several episodes of near syncope with falls and shortness of breath status post recent CABG x [address] Cartagena on September 17, 2025.
He is followed by Dr. Paez with [facility]. Reg has a history of ischemic cardiomyopathy with an ejection fraction 15% and known multivessel coronary artery disease who had a recent positive stress test and subsequent left heart catheterization
demonstrating multivessel coronary disease referred for CABG. Additionally, he has a history of hypertension, hyperlipidemia, BPH with urinary retention, CLL with chronic thrombocytopenia, and sleep apnea.
.
He was admitted electively September 15, 2025 and placed on a dobutamine drip and underwent diuresis for optimization prior to elective CABG x 4 [VASQUEZ�LAD, SVG�PDA, SVG�DX�OM] with placement of a 5.5 Impella 09/17/[address] Cartagena; impella was removed
on September 19. A repeat echocardiogram on dobutamine reported an improved ejection fraction around 40%. Postoperative course was complicated by hypotension, acute on chronic renal insufficiency and urinary retention. He was weaned off inotropes,
pressors and midodrine prior to discharge home on September 24. His hospital course was complicated by urinary retention and he was discharged home with a Kee catheter. His discharge medications include aspirin 81 mg daily, Plavix 75 mg daily,
metoprolol succinate 12.5 mg twice daily, Bumex 2 mg daily, Jardiance 10 mg daily.
.
Patient and his states that he has been feeling fine since discharge until this morning. Following breakfast fell felt like he had to go to the bathroom and have a bowel movement however on his way to the restroom with the assistance of his
he became extremely shaky and weak. She was able to get him to the bathroom where he fell to his knees. She denies loss of consciousness or head trauma. He ultimately never had a bowel movement. He had 3 more near-syncopal events with
profound weakness and increasing shortness of breath prompting return to the emergency department. He denies chest pain or pressure. He denies fevers or chills. He denies chest wall or head trauma with falls. In the emergency department he was
noted to be hypotensive with initial blood pressures reportedly 60s and 70s systolic which responded initially to IV fluids. Initial chest x-ray showed widened mediastinum and globular heart with elevated left hemidiaphragm and a new large opacity
in the left hemithorax. Initial twelve-lead EKG was sinus rhythm with PACs and an incomplete left bundle branch block with ST-T wave abnormalities in the inferior lateral leads with prolonged QT at 500 ms not significantly changed from prior study.
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 Initial hemoglobin 8.6, hemoglobin 8.9 on day of discharge September 24. Platelets 357. Sodium 136, potassium 3.4. BUN and creatinine 23/1.4. Creatinine was 1.2
on day of discharge. I within normal limits. Cardiac troponin 0.065. proBNP 4700. Procalcitonin less than 0.05. Lactate 2.
.
Patient was seen and examined with Dr. Cartagena and CT surgery PA as well as ER physician Dr. Nash. Stat CTA of the chest demonstrated new large left pleural effusion and tiny right pleural effusion. There was a pericardial effusion posteriorly
which demonstrated contrast extravasation and pooling raising concern for delayed bleeding from one of the grafts. A chest tube was placed by CT surgery in the emergency room with significant bloody drainage, totaling 2.7 L following urgent cardiac
catheterization. Patient was transported to cardiac cath where he was electively intubated with anesthesia. Interventional cardiology performed emergent coronary angiography and arteriogram with no obvious extravastion identified in grafts or at
site of Impella graft. He was then transported to the CVICU for close monitoring on Levophed having received 3 units packed red blood cells.
Progress Note - Sustainability Specialist
Subjective
Date of Service: October 03, 2025
wants bipap mask off.
Objective
Labs:
10/03/25 03:36
10/03/25 03:36
Labs
Hgb 8.3 g/dL (13.0-18.0) L 10/03/25 03:36
Hct 24.7 % (39.0-52.0) L 10/03/25 03:36
Plt Count 135 10^3/uL (130-400) 10/03/25 03:36
PT 17.6 Sec (11.4-14.6) H 10/01/25 03:36
INR 1.42 10/01/25 03:36
APTT 33.5 Sec (23.4-35.0) 10/01/25 03:36
Sodium 139 mmol/L (135-145) 10/03/25 03:36
Potassium 4.0 mmol/L (3.5-5.1) 10/03/25 03:36
BUN 62 mg/dl (9-20) H 10/03/25 03:36
Creatinine 2.1 mg/dL (0.7-1.3) H 10/03/25 03:36
Glucose 94 mg/dl (70-99) 10/03/25 03:36
Vital Signs and I&O:
Vital Signs
Temp Pulse Resp BP Pulse Ox
98.8 F 103 31 133/65 96
10/03/25 15:06 10/03/25 15:00 10/03/25 15:00 10/02/25 15:00 10/03/25 15:00
Vital Signs
Temp Pulse Resp BP Pulse Ox
98.8 F 103 31 133/65 96
10/03/25 15:06 10/03/25 15:00 10/03/25 15:00 10/02/25 15:00 10/03/25 15:00
Intake & Output
10/01/25 10/02/25 10/03/25 10/04/25
07:59 07:59 07:59 07:59
Intake Total 3447.5 / 3514.4 1811.7 / 1857.7 1277.0 / 1330.2 924.9 / 924.9
Output Total 1770 / 1795 1575 / 1610 4485 / 4850 1900 / 1900
Balance 1677.5 / 1719.4 236.7 / 247.7 -3208.0 / -3519.8 -975.1 / -975.1
Physical Exam
Physical Exam
GEN: No distress, awake, alert, oriented to self, place. on BIPAP
HEENT: supple, anicteric, mmm, eomi
LUNGS: rhonchorous B/L, no wheezes
CV: Reg and tachy, S1/S2, no murmur
ABD: soft, BS+, NT/ND
EXT: No cyanosis, clubbing. 1+ of B/L LE edema
NEURO: Gross non-focal
SKIN: Warm, pink, dry. No rash. Chest dressings with aquacel dressings c/d/i
[2025-10-03 15:45] LABS: B.E. - POC 1.0 mmol/L; Blood Urea Nitrogen - POC 57 mg/dl (3-120); Chloride - POC 110 mmol/L (96-111); Creatinine - POC 2.56 mg/dl (0.3-1.0); Glucose - POC 73 mg/dl (70-99); HCO3 - POC 25 mmol/L (21-28); Hematocrit - POC 29 % PCV (42-52); Hemodilution- POC No; Hemoglobin Calculated - POC 10.0; Ionized Calcium - POC 1.23 mmol/L (1.15-1.33); Lactate - POC 0.52 mmol/L (0.36-0.75); O2 Saturation %Calculated-POC 96.5 % (94-98); PCO2 - POC 37 mmHg (35-48); PO2 - POC 82 mmHg (83-108); Potassium - POC 3.8 mmol/L (3.5-5.1); Sodium - POC 146 mmol/L (136-145); Specimen Type - POC Arterial; pH - POC 7.44 (7.35-7.45)
[2025-10-03] MEDS: FLEXERIL TUBE ×2 (15:48→21:16)
[2025-10-03] MEDS: TYLENOL ORAL SOLUTION TUBE ×2 (15:48→21:16)
[2025-10-03] MEDS: ROXICODONE TUBE ×2 (15:48→21:16)
[2025-10-03 16:09] LABS: Glucose - Point of Care 104 mg/dl (70-99)
[2025-10-03 16:30] VITALS: BMI 31.2
--- NOTE | 2025-10-03 17:50 | PTCARENOTE ---
Patient complaining of discomfort with BiPAP and EPOC ABG repeated after patient on BiPAP for 4 hours; Patient able to switched to midflow NC - now SpO2 95-97% on 10L Midflow NC; IS 500 ml; Acapella being frequently used by patient; Chest percussion
given by RN and patient able to cough up yellow, thick mucous; Frequent mouth care given; Patient denies any pain and resting comfortably in bed at this time
[2025-10-03 18:12] LABS: Glucose - Point of Care 101 mg/dl (70-99)
--- NOTE | 2025-10-03 19:00 | PTCARENOTE ---
assumed care of patient @ 1900. recieved pt lying in bed
Neuro- Aox3. Forgetful at times, anxious at times. c/o mild pain in sternum and back. REGAN OTT
CV-NSR on tele with pvcs and pacs. BP 120s/130s / 50s, map ~ 80. doppler lower pulses. +2 edema to feet. +rub on auscultation.
Lungs- lungs diminished, coarse on auscultation. CTx4 present to wall suction no air leak, tidaling or crepitus noted. Occasional thich mariscal blood tinged secretions. aggressive pulm toilet encouraged
GI- hypo bs. tolerating very small portions of ice chips
- adler present draining clear yellow urine.
Skin- antibacterial adhesive dressings x2 present on chest. previous SVG sites NEETA, scabbed. R thoractomy inscs closed with glue. L pleural CT CDI, Other chest tube dressing CDI.
Lines-L IJ cordis, L AC 20, R picc triple lumen, L A line all patent. central lines zeroed, flushed.
Meds- Dobut at 1.5, bumex at 1 (will turn off at 8) insulin per protocol . insulin drip to stop tonight, waiting for order.
--- NOTE | 2025-10-03 20:00 | PTCARENOTE ---
bumex and insulin turned off per orders
[2025-10-03] MEDS: OFIRMEV 100 IV (20:10)
[2025-10-03] MEDS: REMOVE LIDOCAINE PATCH 1 PATCH REMOVE (21:16)
[2025-10-03] MEDS: LIPITOR TUBE (21:16)
[2025-10-03] MEDS: SENOKOT TUBE (21:16)
--- NOTE | 2025-10-03 22:20 | PTCARENOTE ---
pt went into afib with RVR HRs 150s-160s. amio drip ordered and hung. BP stable
[2025-10-03] MEDS: CORDARONE 259 MG IV (23:00)
--- NOTE | 2025-10-04 | PTCARENOTE ---
pt resting comfortably, no change in assessment
[2025-10-04] MEDS: TYLENOL ORAL SOLUTION 650 MG TUBE (04:03)
[2025-10-04] MEDS: ROXICODONE TUBE ×4 (04:07→22:28)
[2025-10-04 04:09] LABS: ALT (SGPT) 12 U/L (0-50); AST (SGOT) 30 U/L (17-59); Albumin 2.6 g/dl (3.5-5.0); Alkaline Phosphatase 88 U/L (38-126); Blood Urea Nitrogen 74 mg/dl (9-20); Calcium 8.5 mg/dl (8.4-10.2); Carbon Dioxide 25 mmol/L (22-30); Chloride 109 mmol/L (98-107); Estimated Creatinine Clearance 29 ml/min; Glucose 123 mg/dl (70-99); Magnesium 2.6 mg/dl (1.6-2.3); Potassium 4.2 mmol/L (3.5-5.1); Sodium 141 mmol/L (135-145); Total Protein 4.7 g/dl (6.3-8.2); eGFR 29.17
--- NOTE | 2025-10-04 04:16 | PTCARENOTE ---
labs drawn and sent , pt resting comfortably , no change in assessment .
[2025-10-04 04:18] LABS: Hematocrit 30.8 % (39.0-52.0); Hemoglobin 10.5 g/dL (13.0-18.0); Mean Corp Hgb Conc. 34.1 g/dL (33.0-37.0); Mean Corpuscular Volume 89.3 fL (80.0-94.0); Platelet Count 186 10^3/uL (130-400); Red Cell Dist. Width 16.4 % (11.5-14.5)
[2025-10-04 06:00] VITALS: BMI 29.6
[2025-10-04] MEDS: CORDARONE 259 MG IV ×2 (06:00→22:01)
--- NOTE | 2025-10-04 07:39 | PTCARENOTE ---
Assumed care of patient from shift mechanic RN. AAO x 3. A fib on monitor. 10 L midflow pulse ox of 99%. Using Acapella with encouragement. Chest tubes x 4 to -20 cm suction. No air leak or crepitus noted. Abdomen soft and non tender ,
hypoactive bowel sounds noted t/o. Kee draining clear yellow urine. Doppler pulses appreciated. Plus 2 general anasarca appreciated. Drips infusing on handoff as follows: Amiodarone, Bumex, and dobutamine. Plan for day discussed.
--- NOTE | 2025-10-04 08:11 | W.PN.INTV ---
Today's Communication / Plan
Recommendations
- Wean oxygen as tolerated
- Initiate IV cefepime, follow-up on BAL, follow-up chest x-ray in a.m.
- Continue diuresis per primary team
- Incentive spirometry
- Use BiPAP as needed for respiratory distress
Assessment
-
80-year-old gentleman with delayed hemorrhage, 12 days post cardiac surgery, s/p redo sternotomy, washout and evacuation of approximately 1.5 L of clot from left chest, ligation of mammary vein and distal mammary stump, ligation of large vein
towards the neck, POD # 5
09/30, recurrence of left hemothorax, s/p reexploration and hematoma evacuation, POD#4
09/30, persistent hemorrhagic chest tube out put, IR evaluation suggested active arterial extravasation, s/p return to the OR, ligation of arterial vessel and electrocautery, POD#4
Titrate off pressors per protocol, currently MAP is 96, Levophed weaned off. Dobutamine infusing.
ECHO from 09/23, LVEF 40 to 45%.
Management of chest tubes per primary service.
Patient currently extubated, on mid flow at 10 L supplemental oxygen, saturating 99%. Work of breathing normal
10/01, patient was extubated, had to be re-intubated for respiratory distress.
10/02, Bronchoscopy and BAL of RUL performed for airway clearance.
CXR suggestive of bibasilar atelectasis, right upper lobe increased opacity concerning for developing consolidation, mild pulmonary congestion
WBC elevated, right upper lobe BAL growing gram-negative rods, in view of hypoxia and increased oxygen requirement, favor starting antibiotic, IV cefepime.
No prior history of pulmonary disease, except for 4 mm nodule in the right lower lobe.
Aspiration precautions
Encouraged incentive spirometry, OOB/ambulation/early mobility
Advance diet as tolerated following extubation
GI prophylaxis: Protonix
Monitor critical I/O's
Kee/chest tube output
Hb/platelets postoperatively stable. S/p PRBC, hemoglobin was as low as 7.6. Most recent 10.5.
Trend CBC for now
Can transfuse if indicated for Hb <7, plt <50 in surgical patients
DVT prophylaxis including SCDs
Other medical diagnoses:
- Acute blood loss anemia due to delayed hemorrhage post CABG, s/p redo sternotomy x 3, and evacuation of clot as well as ligation of mammary vein, subsequent arterial ligation and cautery.
- Shock, hemorrhagic and suspect concomitant cardiogenic. Resolving. Off levophed now. Dobutamine infusing.
- Atrial fibrillation with rapid ventricular rate. On amiodarone infusion now.
- History of coronary artery disease, s/p coronary artery bypass grafting 09/2025, patent graft as per cardiac catheterization on 09/29.
- Ischemic cardiomyopathy, HFrEF. Bumex infusion ongoing. Patient still appears to be quite volume overloaded. Fluid balance over last 24 hours, -3.0 L, still volume noted on exam
- Hypertension, hyperlipidemia
- History of CLL with chronic thrombocytopenia
- GERD
- Depression/anxiety
- History of SYDNI
- History of BPH
Critical Care time [44] mins -- The patient is admitted for acute critical illness for the treatment of vital organ failure and/or prevention of further life-threatening conditions. Total care includes time spent in review of history, physical exam,
medications, hemodynamic/ventilator parameters, laboratory data, imaging and discussion with house staff, pharmacy, respiratory therapy, web production artist, and nursing
Data:
CXR 09/2025: Interval advancement of the pulmonary artery catheter with tip in appropriate positioning. Stable appearance of the additional support lines and tubes.
Unchanged mild basilar opacities favored to represent atelectasis. No pneumothorax.
CTA Chest 09/2025: New moderate size slightly high attenuation density pericardial effusion especially posteriorly (slight increased density on postcontrast images) with findings suspicious for small volume active bleeding within as detailed above
as well as new moderate size left pleural effusion in comparison to recent prior CTA. Findings discussed by telephone with Dr. Nash in the emergency department at approximately [address] Cartagena at approximately 1738 hours on September
2024.
Slightly high attenuation density fluid suggested within small volume urinary bladder as well as Kee catheter possibly representing some blood products/proteinaceous material.
Additional nonurgent findings as detailed above, some of which include left lower lobe consolidation, small right pleural effusion, bilateral simple renal cysts and prior cholecystectomy.e
LHC 09/29/2025: 1: Widely patent grafts with no obvious source of bleeding.
2: Unremarkable aortogram in ARGENTINE and THOMASON projections with no obvious source of bleeding.
ECHO 09/23/2025: 1. Ejection fraction is 40-45% by visual assessment.
2. Normal left ventricular size, wall thickness and systolic function. No regional wall motion abnormalities are seen.
3. Aortic sclerosis with trace aortic regurgitation is seen.
4. Left ventricular wall motion is diffusely hypokinetic.
5. Thickened mitral leaflets with adequate leaflet excursion. Mild mitral annular calcification. Trace mitral regurgitation.
Subjective Dataa
Subjective Data
Date of Service:
Date of Service: October 04, 2025
Subjective:
Patient comfortably sitting in bed in no acute distress.
Review of Systems
Genitourinary: Other (No new symptoms reported)
Objective Data
Data Reviewed
Vital Signs / I&O / Oxygen:
Vital Signs
Temp Pulse Resp BP Pulse Ox
99.4 F 124 30 133/65 98
10/04/25 06:00 10/04/25 07:10 10/04/25 07:10 10/02/25 15:00 10/04/25 07:10
Intake and Output
10/03/25 10/04/25 10/05/25
06:59 06:59 06:59
Intake Total 1269.8 / 1323.0 1721.2 / 1761.9 40.7 / 40.7
Output Total 4185 / 4555 5260 / 5435 175 / 175
Balance -2915.2 / -3232.0 -3538.8 / -3673.1 -134.3 / -134.3
SaO2 [CPAP/PSV] 96
SaO2 [SIMV] 99
SaO2 [CPAP] 97
SaO2 [A/C] 96
SaO2 98
Nasal Cannula flow liters per 6
minute
Physical Exam
General: Comfortable
HEENT: Normocephalic
Cardiovascular: S1-S2 and Peripheral Edema (Still significant edema both upper and lower extremities, crackles on exam)
Respiratory: Crackles
GI: Soft and Non Distended
Neurology: Awake and Alert
Skin: Warm
Labs/Micro/Reports
Lab Data
10/04/25 03:07
10/04/25 03:07
Laboratory Results
10/03/25
10:22
pH 7.47 H
pCO2 39
pO2 117 H
HCO3 28.4 H
O2 Delivery Level
Microbiology
10/02/25 09:27 Bronch Right Upper Lobe Respiratory Culture - Preliminary
Gram negative bacilli
10/02/25 09:27 Bronch Right Upper Lobe Gram Stain - Preliminary
[2025-10-04] MEDS: BACTROBAN 2% OINTMENT 1 APPLIC NASAL (08:17)
[2025-10-04] MEDS: PROTONIX IV 40 MG IV (08:21)
[2025-10-04] MEDS: FLEXERIL 5 MG TUBE (08:22)
[2025-10-04] MEDS: NSS (PRESERVATIVE FREE) 10 ML IV (08:22)
[2025-10-04] MEDS: SENOKOT 8.6 MG TUBE (08:22)
[2025-10-04] MEDS: LIDOCAINE 4% PATCH 1 PATCH TOPICAL (08:23)
[2025-10-04] MEDS: VENTOLIN NEBULES 2.5 MG INH ×3 (08:27→17:38)
[2025-10-04] MEDS: SODIUM CHLORIDE 3% FOR INHALATION 1 VIAL INH ×2 (08:27→14:07)
[2025-10-04] MEDS: TYLENOL ORAL SOLUTION 650 MG PO ×2 (09:57→18:15)
[2025-10-04] MEDS: STERILE WATER FOR INJECTION 10 ML IV ×2 (09:59→22:01)
[2025-10-04] MEDS: MAXIPIME 1000 MG IV ×2 (09:59→22:01)
--- NOTE | 2025-10-04 10:49 | PTCARENOTE ---
Turned and repositioned, Pt very weak and needs significant assistance. Sacral foam peeled back and skin inspected, wound unchanged, no new breakdown appreciated. Tolerated clear liquids, no coughing noted with oral intake
--- NOTE | 2025-10-04 11:07 | W.PN.CT ---
Today's Communication / Plan
-
pod#4
-Amio infusion for AF
- Dobutamine off
- resume beta-celestina
- DC mediastinal chest tubes, keep pleural
-continue Bumex infusion 1mg/h for volume overload
- Pseudomonas aeruginosa in BAL>Cefepime
- change meds to oral route
- increase diet to cholesterol lowering
- resume Doxazosin/Finasteride for BPH
Assessment / Plan
-
- Delayed hemorrhage 12 days post cardiac surgery- s/p Redo sternotomy; Washout and evacuation of approximately 1.5 L of clot from the left chest; Ligation of mammary vein and distal mammary stump; Ligation of large vein towards the neck; Thorough
evaluation of all bypass grafts by Dr Cartagena on 09/30/25 at 2:30am
- Recurrent hemorrhage with hemodynamic instability- s/p Reexploration of chest, redo sternotomy, evacuation of large clot between the left lower lobe and the pericardium the left side, inspection of all surgical sites which were all hemostatic,
packed with hemostatic agent, repair of chest wall, left lateral thoracotomy connected to the sternotomy incision for visualization, thoracotomy repair by Dr. Cartagena on 09/30/25 at 4:45 pm
- Continued hemorrhage - s/p angiogram of thoracic aorta and L bronchial artery by IR, Dr. Andrade. Findings at angio suspicious for small volume contrast extravasation distal branch L bronchial artery. Secondary to size and tortuosity of the aorta,
diminutive caliber and tortuosity of L bronchial artery, attempts to advance a microcatheter into the L bronchial artery for embolization were unsuccessful. No immediate procedural complications.
s/p Anterior lateral thoracotomy, ligation of arterial vessel, cautery of raw surface and lung tissue for hemostasis, multiple rounds of packing and serial evaluations of all quadrants, application of topical hemostatic agents, reapproximated ribs
and closure thoracotomy by Dr. Cartagena on 09/30/25 at 10:47 pm
- S/p Recent CABG x 4 surgery with planned Impella 5.5 support on 09/17/25 and discharged home with VN on 09/24/25
- Admitted 09/29/25 with dizziness and near syncope- Delayed post-CABG bleeding /Hemorrhagic shock, acute blood loss anemia
- Ischemic cardiomyopathy with EF of 35%
- Significant pleural effusion with respiratory failure
- Chronic lymphocytic leukemia with chronically elevated white count and thrombocytopenia
- Thrombocytopenia
- Multivessel coronary artery disease- hx PCI with stent
- Chronic systolic CHF with reduced EF
- HTN/HLD
- BPH
- hx Cataracts
- Carpal tunnel and hernia repair
- Cholecystectomy
- MONO on CKD (Cr baseline 1.3-14)
- 12 beat NSVT on 10/01
- PAF
-Acute postop blood loss anemia
-Acute postop respiratory failre-reintubated 10/01/25
- Acute post-op respiratory insufficiency
-Acute postop hypovolemia and subsequent hypervolemia
-Acute postop Pseudomanas aeruginosa PNA
Discussed patient care with: Cardiology, Nursing, Respiratory Therapy and Care Team
Subjective
-
Date of Service: October 04, 2025
Objective Data
-
Lab Results
10/04/25 03:07
10/04/25 03:07
PT 17.6 Sec (11.4-14.6) H 10/01/25 03:36
INR 1.42 10/01/25 03:36
APTT 33.5 Sec (23.4-35.0) 10/01/25 03:36
Vital Signs
Vital Signs
Temp Pulse Resp BP Pulse Ox
97.7 F 127 31 133/65 94
10/04/25 08:00 10/04/25 10:20 10/04/25 10:20 10/02/25 15:00 10/04/25 10:20
CT Intake/Output/Weight
10/03/25 10/04/25 10/04/25
18:59 06:59 18:59
Intake Total 1157.9 / 1761.9 563.3 / 1761.9 316.7 / 316.7
Output Total 3160 / 5435 2100 / 5435 695 / 695
Balance -2002.1 / -3673.1 -1536.7 / -3673.1 -378.3 / -378.3
SaO2: 94
Physical Exam
-
General: AOx3
Cardiovascular: Irregular rate & rhythm
Respiratory: Clear and Equal
Sternum: Stable and Other (left thoracotomy)
Incision: Clean, Dry and Intact
Extremities: No Edema
Data Reviewed
-
Lab Results: Results Reviewed
Medications: Active Meds Reviewed
Chest X-Ray: Report Reviewed and Image Reviewed
ECG: Report Reviewed and Image Reviewed
--- NOTE | 2025-10-04 11:10 | CM ---
Chart reviewed. Patient extubated and is on midflow. Patient awake and interactive. Patient was independent of ADLS, lives with his in a [facility], [address], 0 [address], ambulating with a RW and current with [facility]. Patient
will need a functional assessment to determine discharge needs. Plan is patient to return home with [facility] or Rehab. CM to follow
--- NOTE | 2025-10-04 11:35 | PTCARENOTE ---
VSS, Lt IJ cordis positional and difficult to flush. Removed. Pt tolerated w/o issue. Dobutamine drip discontinued per POOLROOM/POOLHALL MANAGER order. Napping intermittently. Denies pain. Assessment otherwise unchanged from prior.
--- NOTE | 2025-10-04 11:37 | PTCARENOTE ---
Converted to NSR on montior 80's.
[2025-10-04 12:54] LABS: Blood Urea Nitrogen 80 mg/dl (9-20); Calcium 8.1 mg/dl (8.4-10.2); Carbon Dioxide 28 mmol/L (22-30); Chloride 106 mmol/L (98-107); Estimated Creatinine Clearance 28 ml/min; Glucose 224 mg/dl (70-99); Potassium 4.2 mmol/L (3.5-5.1); Sodium 138 mmol/L (135-145); eGFR 32.71
[2025-10-04] MEDS: NSS IV (13:38)
[2025-10-04 15:20] VITALS: BP 145/69; BP 172/77; PULSE 93; O2SAT 93
[2025-10-04] MEDS: PACERONE 200 MG TUBE ×2 (15:34→19:07)
[2025-10-04] MEDS: CARDURA 8 MG PO (15:35)
--- NOTE | 2025-10-04 15:54 | W.PN.CARDCBS ---
Addendum entered and electronically signed by Sarita Blandon MD 10/04/25 16:17:
I saw and examined the patient.
The International Controller's note was reviewed and I agree with the note.
Comment: He is a little bit brighter today. Still with shortness of breath. Continuing on Bumex drip for diuresis. Amiodarone infusion for atrial fibrillation. Currently stable.
He is here initially seen for critical illness, near syncope, hypotension and hemorrhagic shock. He is status post chest reexploration with delayed bleeding 09/30/2025. Recent CABG 09/17/2025 with Impella at that time.
Continue postop care
IV amiodarone for atrial fibrillation. Continue to follow telemetry.
Continue to follow EKGs.
Continue diuresis as tolerates
Wean oxygen as able.
Discussed with the patient and his at the bedside.
Original Note:
Today's Communication / Plan
-
Antibiotics per CTS for positive sputum culture
Continue Bumex drip for diuresis
Monitor renal function and electrolytes
Now on amiodarone drip for PAF. Heart rates reasonably controlled
Wean oxygen as able
Impression / Plan
-
Primary foreign trade teacher: Dr. Paez of [facility] [place]
Impression:
Near syncope, hypotension with Hemorrhagic shock
s/p multiple chest reexplorations Sep 30 2025
Delayed post CABG bleeding, source unclear
Left hemothorax status post chest tube
Posterior pericardial effusion with contrast extravasation with concern delayed bleeding graft bleeding not demonstrated via urgent cardiac catheterization
NSVT, ventricular bigeminy
Postop anemia with acute blood loss requiring multiple transfusions
Elective CABG x 4 [VASQUEZ�LAD, SVG�PDA, SVG�DX�OM] with placement of a 5.5 Impella 09/17/[address] Cartagena
Ischemic cardiomyopathy with preoperative ejection fraction 15 to 20% and postoperative ejection fraction 40%
History of BPH with postoperative urinary retention requiring Kee catheter
Hypertension
Hyperlipidemia
SYDNI
Polycythemia vera
CLL with chronic thrombocytopenia
Spinal stenosis
GERD
Depression/anxiety
Echo Sep 23 2025: EF 40-45% no significant valve disease
Urgent bedside echo very limited Sep 29 2025 as below
Urgent left cath Sep 29 2025: Widely patent grafts with no obvious source of bleeding.
Plan:
-80-year-old gentleman status post recent CABG with Impella on September 17, 2025 who presented back critically ill with hemorrhagic shock with CT placement in ER for hemothorax underwent multiple surgeries 09/30 ultimately resulting in anterolateral
thoracotomy, ligation of arterial vessel
-failed extubation 10/01, bronch 10/02 unremarkable. extubated 10/03, currently down to 4 Lpm via nasal cannula
-Chest x-ray 10/04/2025 shows new patchy airspace in right upper lobe likely atelectasis. Sputum culture grew Pseudomonas aeruginosa. Started cefepime by CTS 10/04/2025
-on 6 L of oxygen via nasal cannula, wean as able
-Off all pressors.
-on bumex gtt @1 with good response. But still appears to be volume overloaded on examination Cr stable at 2.0
-hgb improved from 8.3- to 10.5, 10/04/2025. DAPT currently on hold
- Currently in rate controlled atrial fibrillation. Back on amiodarone. Will need to monitor QTc closely.
-prognosis remains guarded but slowly improving
-continue post op care
-d/w nursing, CT surg JEWELRY ENGRAVER. d/w at bedside
HPI: I had the pleasure to meet Eyad Hackett along with his Harriet in ER bed 17 for evaluation of hypotension and several episodes of near syncope with falls and shortness of breath status post recent CABG x [address] Cartagena on September 17, 2025.
He is followed by Dr. Paez with [facility]. Reg has a history of ischemic cardiomyopathy with an ejection fraction 15% and known multivessel coronary artery disease who had a recent positive stress test and subsequent left heart catheterization
demonstrating multivessel coronary disease referred for CABG. Additionally, he has a history of hypertension, hyperlipidemia, BPH with urinary retention, CLL with chronic thrombocytopenia, and sleep apnea.
.
He was admitted electively September 15, 2025 and placed on a dobutamine drip and underwent diuresis for optimization prior to elective CABG x 4 [VASQUEZ�LAD, SVG�PDA, SVG�DX�OM] with placement of a 5.5 Impella 09/17/[address] Cartagena; impella was removed
on September 19. A repeat echocardiogram on dobutamine reported an improved ejection fraction around 40%. Postoperative course was complicated by hypotension, acute on chronic renal insufficiency and urinary retention. He was weaned off inotropes,
pressors and midodrine prior to discharge home on September 24. His hospital course was complicated by urinary retention and he was discharged home with a Kee catheter. His discharge medications include aspirin 81 mg daily, Plavix 75 mg daily,
metoprolol succinate 12.5 mg twice daily, Bumex 2 mg daily, Jardiance 10 mg daily.
.
Patient and his states that he has been feeling fine since discharge until this morning. Following breakfast fell felt like he had to go to the bathroom and have a bowel movement however on his way to the restroom with the assistance of his
he became extremely shaky and weak. She was able to get him to the bathroom where he fell to his knees. She denies loss of consciousness or head trauma. He ultimately never had a bowel movement. He had 3 more near-syncopal events with
profound weakness and increasing shortness of breath prompting return to the emergency department. He denies chest pain or pressure. He denies fevers or chills. He denies chest wall or head trauma with falls. In the emergency department he was
noted to be hypotensive with initial blood pressures reportedly 60s and 70s systolic which responded initially to IV fluids. Initial chest x-ray showed widened mediastinum and globular heart with elevated left hemidiaphragm and a new large opacity
in the left hemithorax. Initial twelve-lead EKG was sinus rhythm with PACs and an incomplete left bundle branch block with ST-T wave abnormalities in the inferior lateral leads with prolonged QT at 500 ms not significantly changed from prior study.
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 Initial hemoglobin 8.6, hemoglobin 8.9 on day of discharge September 24. Platelets 357. Sodium 136, potassium 3.4. BUN and creatinine 23/1.4. Creatinine was 1.2
on day of discharge. I within normal limits. Cardiac troponin 0.065. proBNP 4700. Procalcitonin less than 0.05. Lactate 2.
.
Patient was seen and examined with Dr. Cartagena and CT surgery PA as well as ER physician Dr. Nash. Stat CTA of the chest demonstrated new large left pleural effusion and tiny right pleural effusion. There was a pericardial effusion posteriorly
which demonstrated contrast extravasation and pooling raising concern for delayed bleeding from one of the grafts. A chest tube was placed by CT surgery in the emergency room with significant bloody drainage, totaling 2.7 L following urgent cardiac
catheterization. Patient was transported to cardiac cath where he was electively intubated with anesthesia. Interventional cardiology performed emergent coronary angiography and arteriogram with no obvious extravastion identified in grafts or at
site of Impella graft. He was then transported to the CVICU for close monitoring on Levophed having received 3 units packed red blood cells.
Progress Note - Forms Designer
Subjective
Date of Service: October 04, 2025
Patient seen and examined. Lying in bed. Alert and oriented but slow to respond. Still on oxygen
Objective
Labs:
10/04/25 03:07
10/04/25 12:31
Labs
Hgb 10.5 g/dL (13.0-18.0) L D 10/04/25 03:07
Hct 30.8 % (39.0-52.0) L 10/04/25 03:07
Plt Count 186 10^3/uL (130-400) D 10/04/25 03:07
PT 17.6 Sec (11.4-14.6) H 10/01/25 03:36
INR 1.42 10/01/25 03:36
APTT 33.5 Sec (23.4-35.0) 10/01/25 03:36
Sodium 138 mmol/L (135-145) 10/04/25 12:31
Potassium 4.2 mmol/L (3.5-5.1) 10/04/25 12:31
BUN 80 mg/dl (9-20) H 10/04/25 12:31
Creatinine 2.0 mg/dL (0.7-1.3) H 10/04/25 12:31
Glucose 224 mg/dl (70-99) H 10/04/25 12:31
Vital Signs and I&O:
Vital Signs
Temp Pulse Resp BP Pulse Ox
98.4 F 94 32 133/65 92
10/04/25 12:00 10/04/25 15:30 10/04/25 15:30 10/02/25 15:00 10/04/25 15:30
Vital Signs
Temp Pulse Resp BP Pulse Ox
98.4 F 94 32 133/65 92
10/04/25 12:00 10/04/25 15:30 10/04/25 15:30 10/02/25 15:00 10/04/25 15:30
Intake & Output
10/02/25 10/03/25 10/04/25 10/05/25
06:59 06:59 06:59 06:59
Intake Total 2095.0 / 2141.0 1269.8 / 1323.0 1721.2 / 1761.9 441.5 / 441.5
Output Total 1535 / 1605 4185 / 4555 5260 / 5435 1865 / 1865
Balance 560.0 / 536.0 -2915.2 / -3232.0 -3538.8 / -3673.1 -1423.5 / -1423.5
Physical Exam
Physical Exam
GEN: No distress, Appears to be sleepy but responses to questions appropriately, oriented to self, place. on 4 L of oxygen
HEENT: supple, anicteric, mmm, eomi
LUNGS: rhonchorous B/L, no wheezes
CV: Irregularly irregular, S1/S2, no murmur
ABD: soft, BS+, NT/ND
EXT: No cyanosis, clubbing. 1+ of B/L LE edema
NEURO: Reduced verbal output otherwise nonfocal
SKIN: Warm, pink, dry. No rash. Chest dressings with aquacel dressings c/d/i
[2025-10-04] MEDS: SODIUM CHLORIDE 3% FOR INHALATION INH (17:38)
--- NOTE | 2025-10-04 17:43 | PTCARENOTE ---
PT having increased secretions with increased difficulty clearing them. Discussed with respiratory and
Nuclear Instructor. New orders obtained. Nursing senior production supervisor called for sport bed.
[2025-10-04] MEDS: MUCOMYST 20% 2 ML INH (18:18)
--- NOTE | 2025-10-04 19:00 | PTCARENOTE ---
pt having increased work of breathing, 02 sat 88 on 15L MF. mouth breathing. pt appears exhausted. pt placed on BIPAP 10/19 with 15L. appears much more comfortable, respiratory rate down, hr down, 02 sat up. will continue to monitor.
[2025-10-04] MEDS: SENOKOT 8.6 MG PO (19:07)
[2025-10-04] MEDS: LOPRESSOR 12.5 MG PO (19:07)
[2025-10-04] MEDS: REMOVE LIDOCAINE PATCH 1 PATCH REMOVE (19:08)
[2025-10-04 19:20] VITALS: PULSE 105; PULSE 3
--- NOTE | 2025-10-04 20:00 | PTCARENOTE ---
assumed care of patient @ 1900. recieved pt lying in bed
Neuro- Aox3. Forgetful at times, c/o mild pain in sternum and back. REGAN OTT
CV-NSR on tele with pvcs and pacs. BP 120s/130s / 50s, map ~ 80. doppler lower pulses. +2 edema to feet. +rub on auscultation.
Lungs- lungs diminished, coarse, rhonci on auscultation. satting 98 on bipap 12/6 with 15 L. CTx2 present to wall suction no air leak, tidaling or crepitus noted. Occasional thich mariscal blood tinged secretions. aggressive pulm toilet encouraged
GI- hypo bs. tolerating diet
- adler present draining clear yellow urine.
Skin- antibacterial adhesive dressings x2 present on chest. previous SVG sites CORRECTIONAL OFFICER LIEUTENANT, scabbed. R thoractomy inscs closed with glue. L pleural CT CDI, Other chest tube dressing CDI.
Lines-R picc triple lumen, L A line all patent. central lines zeroed, flushed.
Meds- bumex at 1 (will turn off at 8). amio at 0.5
[2025-10-04] MEDS: NEURONTIN PO (22:28)
[2025-10-04] MEDS: PROSCAR PO (22:29)
[2025-10-04] MEDS: LIPITOR PO (22:29)
[2025-10-04] MEDS: KLOR-CON 20 MEQ PO (22:33)
[2025-10-04 23:41] VITALS: PULSE 3; PULSE 88
--- NOTE | 2025-10-05 | PTCARENOTE ---
pt resting comfortably on bipap, no change in assessment .
[2025-10-05] MEDS: TYLENOL ORAL SOLUTION PO (01:23)
[2025-10-05] MEDS: ROXICODONE TUBE ×4 (02:20→19:22)
[2025-10-05 03:00] VITALS: PULSE 103; PULSE 3
--- NOTE | 2025-10-05 03:43 | W.PN.CT ---
Today's Communication / Plan
-
Plan:
-No major issues overnight. Hemodynamically and neurologically intact
-Off Dobutamine gtt as of yesterday 10/04
-On Amiodarone gtt for A-fib with RVR
-Tolerating resumption of BB, Toprol XL 12.5 mg BID
-Holding ASA, Plavix, Eliquis given recent bleed
-Monitor chest tube drainage: L pleural 70/180
-Monitor postop hypernatremia and hypokalemia, will tx with kcl in d5w
-Hold diuresis today, was on bumex gtt
-On Cefepime for PNA
-Wean O2 as tolerated, currently On 12L mid-flow with ABG showin.48/36/83/26.8/98
-OOB into chair/Ambulate
Assessment / Plan
-
- Delayed hemorrhage 12 days post cardiac surgery- s/p Redo sternotomy; Washout and evacuation of approximately 1.5 L of clot from the left chest; Ligation of mammary vein and distal mammary stump; Ligation of large vein towards the neck; Thorough
evaluation of all bypass grafts by Dr Cartagena on 09/30/25 at 2:30am
- Recurrent hemorrhage with hemodynamic instability- s/p Reexploration of chest, redo sternotomy, evacuation of large clot between the left lower lobe and the pericardium the left side, inspection of all surgical sites which were all hemostatic,
packed with hemostatic agent, repair of chest wall, left lateral thoracotomy connected to the sternotomy incision for visualization, thoracotomy repair by Dr. Cartagena on 09/30/25 at 4:45 pm
- Continued hemorrhage - s/p angiogram of thoracic aorta and L bronchial artery by IR, Dr. Andrade. Findings at angio suspicious for small volume contrast extravasation distal branch L bronchial artery. Secondary to size and tortuosity of the aorta,
diminutive caliber and tortuosity of L bronchial artery, attempts to advance a microcatheter into the L bronchial artery for embolization were unsuccessful. No immediate procedural complications.
s/p Anterior lateral thoracotomy, ligation of arterial vessel, cautery of raw surface and lung tissue for hemostasis, multiple rounds of packing and serial evaluations of all quadrants, application of topical hemostatic agents, reapproximated ribs
and closure thoracotomy by Dr. Cartagena on 09/30/25 at 10:47 pm, POD#5
- S/p Recent CABG x 4 surgery with planned Impella 5.5 support on 09/17/25 and discharged home with VN on 09/24/25
- Admitted 09/29/25 with dizziness and near syncope- Delayed post-CABG bleeding /Hemorrhagic shock, acute blood loss anemia
- Ischemic cardiomyopathy with EF of 35%
- Significant pleural effusion with respiratory failure
- Chronic lymphocytic leukemia with chronically elevated white count and thrombocytopenia
- Thrombocytopenia
- Multivessel coronary artery disease- hx PCI with stent
- Chronic systolic CHF with reduced EF
- HTN/HLD
- BPH
- hx Cataracts
- Carpal tunnel and hernia repair
- Cholecystectomy
- MONO on CKD (Cr baseline 1.3-14)
- 12 beat NSVT on 10/01
- PAF
-Acute postop blood loss anemia
-Acute postop respiratory failre-reintubated 10/01/25
- Acute post-op respiratory insufficiency
-Acute postop hypovolemia and subsequent hypervolemia
-Acute postop Pseudomanas aeruginosa PNA
Discussed patient care with: Cardiology, Nursing, Respiratory Therapy, Pharmacy and Care Team
Subjective
-
Date of Service: October 05, 2025
Pt c/o mild incisional pain, otherwise feels well
Objective Data
-
Lab Results
10/04/25 03:07
PT 17.6 Sec (11.4-14.6) H 10/01/25 03:36
INR 1.42 10/01/25 03:36
APTT 33.5 Sec (23.4-35.0) 10/01/25 03:36
Vital Signs
Vital Signs
Temp Pulse Resp BP Pulse Ox
99.5 F 103 28 133/65 96
10/05/25 00:00 10/05/25 02:00 10/05/25 02:00 10/02/25 15:00 10/05/25 02:00
CT Intake/Output/Weight
10/04/25 10/04/25 10/05/25
06:59 18:59 06:59
Intake Total 563.3 / 1761.9 803.6 / 924.5 120.9 / 924.5
Output Total 2100 / 5435 2505 / 3235 730 / 3235
Balance -1536.7 / -3673.1 -1701.4 / -2310.5 -609.1 / -2310.5
SaO2: 96 (BIPAP 12/6, 15L)
Physical Exam
-
General: Awake, Oriented and AOx3
Cardiovascular: Irregular rate & rhythm (a-fib), No Murmurs, No Rub and No Gallop
Respiratory: Decreased Breath Sounds (at bases, otherwise clear)
Sternum: Stable
Incision: Clean, Dry and Intact
Extremities: Edema +1 and Other
Data Reviewed
-
Lab Results: Results Reviewed
Medications: Active Meds Reviewed
Chest X-Ray: Report Reviewed and Image Reviewed
ECG: Report Reviewed and Image Reviewed
--- NOTE | 2025-10-05 04:00 | PTCARENOTE ---
BIPAP taken off and replaced with 12L midflow. labs drawn and sent. pt alert and oriented but appears very deconditioned. strengthening exercises and ROM preformed. emotional encouragement provided.
[2025-10-05 04:47] LABS: Hematocrit 32.6 % (39.0-52.0); Hemoglobin 10.3 g/dL (13.0-18.0); Mean Corp Hgb Conc. 31.6 g/dL (33.0-37.0); Mean Corpuscular Volume 95.3 fL (80.0-94.0); Platelet Count 150 10^3/uL (130-400); Red Cell Dist. Width 16.8 % (11.5-14.5)
[2025-10-05 05:21] LABS: ALT (SGPT) 12 U/L (0-50); AST (SGOT) 27 U/L (17-59); Albumin 2.5 g/dl (3.5-5.0); Alkaline Phosphatase 93 U/L (38-126); Blood Urea Nitrogen 84 mg/dl (9-20); Calcium 8.2 mg/dl (8.4-10.2); Carbon Dioxide 29 mmol/L (22-30); Chloride 111 mmol/L (98-107); Estimated Creatinine Clearance 23 ml/min; Glucose 128 mg/dl (70-99); Potassium 3.5 mmol/L (3.5-5.1); Sodium 148 mmol/L (135-145); Total Protein 4.6 g/dl (6.3-8.2); eGFR 26.28
[2025-10-05 05:23] LABS: B.E. 3.3 mmol/L; HCO3 26.8 mmol/L (21-28); O2 Saturation % 98.0 % (94-98); PCO2 36 mmHg (35-48); PO2 83 mmHg (83-108)
[2025-10-05 05:50] VITALS: BMI 28.4
[2025-10-05] MEDS: KCL 270 MEQ IV ×2 (06:27→21:19)
[2025-10-05] MEDS: TYLENOL ORAL SOLUTION 650 MG PO ×3 (06:59→17:32)
[2025-10-05] MEDS: NEURONTIN PO ×2 (07:32→19:22)
--- NOTE | 2025-10-05 07:41 | PTCARENOTE ---
Assumed care of patient from hourly shift manager RN. AAO x 3. Drowsy and flat affect. but appropriate. A fib on monitor. 12 L Midflow with pulse ox of 97%, weak cough noted. IS / acapella encouraged and assisted with. Chest tubes x 2 to - 20 cm
suction. No air leak or crepitus noted. Abdomen round, with positive bowel sounds t/o, passing flatus. appetite fair. Kee draining clear yellow urine. Plus 2 bilateral upper extremity edema. Bilateral lower edema plus 1. Pulses palpable.
Surgical sites well approximated. Amio infusing see flow sheet for totals/ titrations. Plan for day discussed. Awaiting sport bed.
--- NOTE | 2025-10-05 07:44 | W.PN.CARDCBS ---
Today's Communication / Plan
-
Usual postsurgical care as you are
Volume status tenuous on IV Bumex gtt with renal function noted
Hemoglobin stable
Holding DAPT
Hopefully he continues to improve in small increments
Impression / Plan
-
Primary debate director: Dr. Paez of [facility]
Impression:
Near syncope, hypotension with Hemorrhagic shock
s/p multiple chest reexplorations Sep 30 2025
Delayed post CABG bleeding, source unclear
Left hemothorax status post chest tube
Posterior pericardial effusion with contrast extravasation with concern delayed bleeding graft bleeding not demonstrated via urgent cardiac catheterization
NSVT, ventricular bigeminy
Postop anemia with acute blood loss requiring multiple transfusions
Elective CABG x 4 [VASQUEZ�LAD, SVG�PDA, SVG�DX�OM] with placement of a 5.5 Impella 09/17/[address] Cartagena
Ischemic cardiomyopathy with preoperative ejection fraction 15 to 20% and postoperative ejection fraction 40%
History of BPH with postoperative urinary retention requiring Kee catheter
Hypertension
Hyperlipidemia
SYDNI
Polycythemia vera
CLL with chronic thrombocytopenia
Spinal stenosis
GERD
Depression/anxiety
Echo Sep 23 2025: EF 40-45% no significant valve disease
Urgent bedside echo very limited Sep 29 2025 as below
Urgent left cath Sep 29 2025: Widely patent grafts with no obvious source of bleeding.
Plan:
-80-year-old gentleman status post recent CABG with Impella on September 17, 2025 who presented back critically ill with hemorrhagic shock with CT placement in ER for hemothorax underwent multiple surgeries 09/30 ultimately resulting in anterolateral
thoracotomy, ligation of arterial vessel
- Extubated on nasal cannula
-Chest x-ray 10/04/2025 shows new patchy airspace in right upper lobe likely atelectasis. Sputum culture grew Pseudomonas aeruginosa. Started cefepime by CTS 10/04/2025
- Off pressor
-on bumex gtt @1 with good response. But still appears to be volume overloaded, creatinine noted
- DAPT currently on hold and given recent bleeding would not recommend oral anticoagulation at the current time. Hemoglobin continues to remain stable today
- Currently in rate controlled atrial fibrillation. Back on amiodarone. Will need to monitor QTc closely.
-prognosis remains guarded but slowly improving
-continue post op care
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 d/w at bedside
HPI: I had the pleasure to meet Eyad Hackett along with his Harriet in ER bed 17 for evaluation of hypotension and several episodes of near syncope with falls and shortness of breath status post recent CABG x [address] Cartagena on September 17, 2025.
He is followed by Dr. Paez with [facility]. Reg has a history of ischemic cardiomyopathy with an ejection fraction 15% and known multivessel coronary artery disease who had a recent positive stress test and subsequent left heart catheterization
demonstrating multivessel coronary disease referred for CABG. Additionally, he has a history of hypertension, hyperlipidemia, BPH with urinary retention, CLL with chronic thrombocytopenia, and sleep apnea.
.
He was admitted electively September 15, 2025 and placed on a dobutamine drip and underwent diuresis for optimization prior to elective CABG x 4 [VASQUEZ�LAD, SVG�PDA, SVG�DX�OM] with placement of a 5.5 Impella 09/17/[address] Cartagena; impella was removed
on September 19. A repeat echocardiogram on dobutamine reported an improved ejection fraction around 40%. Postoperative course was complicated by hypotension, acute on chronic renal insufficiency and urinary retention. He was weaned off inotropes,
pressors and midodrine prior to discharge home on September 24. His hospital course was complicated by urinary retention and he was discharged home with a Kee catheter. His discharge medications include aspirin 81 mg daily, Plavix 75 mg daily,
metoprolol succinate 12.5 mg twice daily, Bumex 2 mg daily, Jardiance 10 mg daily.
.
Patient and his states that he has been feeling fine since discharge until this morning. Following breakfast fell felt like he had to go to the bathroom and have a bowel movement however on his way to the restroom with the assistance of his
he became extremely shaky and weak. She was able to get him to the bathroom where he fell to his knees. She denies loss of consciousness or head trauma. He ultimately never had a bowel movement. He had 3 more near-syncopal events with
profound weakness and increasing shortness of breath prompting return to the emergency department. He denies chest pain or pressure. He denies fevers or chills. He denies chest wall or head trauma with falls. In the emergency department he was
noted to be hypotensive with initial blood pressures reportedly 60s and 70s systolic which responded initially to IV fluids. Initial chest x-ray showed widened mediastinum and globular heart with elevated left hemidiaphragm and a new large opacity
in the left hemithorax. Initial twelve-lead EKG was sinus rhythm with PACs and an incomplete left bundle branch block with ST-T wave abnormalities in the inferior lateral leads with prolonged QT at 500 ms not significantly changed from prior study.
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 Initial hemoglobin 8.6, hemoglobin 8.9 on day of discharge September 24. Platelets 357. Sodium 136, potassium 3.4. BUN and creatinine 23/1.4. Creatinine was 1.2
on day of discharge. I within normal limits. Cardiac troponin 0.065. proBNP 4700. Procalcitonin less than 0.05. Lactate 2.
.
Patient was seen and examined with Dr. Cartagena and CT surgery PA as well as ER physician Dr. Nash. Stat CTA of the chest demonstrated new large left pleural effusion and tiny right pleural effusion. There was a pericardial effusion posteriorly
which demonstrated contrast extravasation and pooling raising concern for delayed bleeding from one of the grafts. A chest tube was placed by CT surgery in the emergency room with significant bloody drainage, totaling 2.7 L following urgent cardiac
catheterization. Patient was transported to cardiac cath where he was electively intubated with anesthesia. Interventional cardiology performed emergent coronary angiography and arteriogram with no obvious extravastion identified in grafts or at
site of Impella graft. He was then transported to the CVICU for close monitoring on Levophed having received 3 units packed red blood cells.
Progress Note - Ict Developer
Subjective
Date of Service: October 05, 2025
Events of the last 24 hours noted
Objective
Labs:
10/05/25 04:08
10/05/25 04:08
Labs
Hgb 10.3 g/dL (13.0-18.0) L 10/05/25 04:08
Hct 32.6 % (39.0-52.0) L 10/05/25 04:08
Plt Count 150 10^3/uL (130-400) 10/05/25 04:08
PT 17.6 Sec (11.4-14.6) H 10/01/25 03:36
INR 1.42 10/01/25 03:36
APTT 33.5 Sec (23.4-35.0) 10/01/25 03:36
Sodium 148 mmol/L (135-145) H D 10/05/25 04:08
Potassium 3.5 mmol/L (3.5-5.1) 10/05/25 04:08
BUN 84 mg/dl (9-20) H 10/05/25 04:08
Creatinine 2.4 mg/dL (0.7-1.3) H 10/05/25 04:08
Glucose 128 mg/dl (70-99) H 10/05/25 04:08
Vital Signs and I&O:
Vital Signs
Temp Pulse Resp BP Pulse Ox
98.3 F 114 20 133/65 97
10/05/25 07:38 10/05/25 07:38 10/05/25 07:38 10/02/25 15:00 10/05/25 07:38
Vital Signs
Temp Pulse Resp BP Pulse Ox
98.3 F 114 20 133/65 97
10/05/25 07:38 10/05/25 07:38 10/05/25 07:38 10/02/25 15:00 10/05/25 07:38
Intake & Output
10/03/25 10/04/25 10/05/25 10/06/25
06:59 06:59 06:59 06:59
Intake Total 1269.8 / 1323.0 1721.2 / 1761.9 991.3 / 1075.5 84.2 / 84.2
Output Total 4185 / 4555 5260 / 5435 3720 / 3820 100 / 100
Balance -2915.2 / -3232.0 -3538.8 / -3673.1 -2728.7 / -2744.5 -15.8 / -15.8
Physical Exam
Physical Exam
����Physical Exam
���������������������General:��no apparent distress, not acutely ill
���������������������������Neck:��supple. no meningeal signs. normal psoterior pharynx
������������������������
���������������������������Heart:�Cor irregularly irregular sternum findings noted mediastinal tube noted
��������������������������Lungs: ��no acute respiratory distress. clear bilaterally
����������������������Abdomen:�normal bowel sounds. not tender. no CVAT
��������������������������Neuro:��alert and oriented. no focal neurological deficits
������������������������������Skin: ��no rash
�����������������������Psychiatric:�well kept. interactive and cooperative
�����������������������Extremities:��no edema. no calf tenderness. negative homans. good distal pulses
��
�
[2025-10-05] MEDS: SENOKOT 8.6 MG PO ×2 (07:53→19:59)
[2025-10-05] MEDS: TOPROL XL 12.5 MG PO ×2 (07:53→19:59)
[2025-10-05] MEDS: PACERONE 200 MG TUBE ×3 (07:53→21:18)
[2025-10-05] MEDS: LIDOCAINE 4% PATCH TOPICAL (07:53)
[2025-10-05] MEDS: NSS (PRESERVATIVE FREE) IV (07:54)
[2025-10-05] MEDS: MUCOMYST 20% 2 ML INH ×3 (08:01→19:33)
[2025-10-05] MEDS: VENTOLIN NEBULES 2.5 MG INH ×3 (08:01→19:33)
[2025-10-05] MEDS: PROTONIX 40 MG PO (09:42)
[2025-10-05] MEDS: STERILE WATER FOR INJECTION 10 ML IV ×2 (09:43→21:19)
[2025-10-05] MEDS: MAXIPIME 1000 MG IV ×2 (09:43→21:18)
--- NOTE | 2025-10-05 10:53 | PTCARENOTE ---
Am morning care given, face washed, teeth swabbed, transfered to Sport BED and percussion therapy started. Pt tolerated.
[2025-10-05 10:59] LABS: B.E. 3.9 mmol/L; HCO3 27.6 mmol/L (21-28); O2 Saturation % 94.0 % (94-98); PCO2 37 mmHg (35-48); PO2 63 mmHg (83-108); Potassium 4.1 mMOL/L (3.5-5.1); Sodium 146 mMOL/L (136-145)
[2025-10-05] MEDS: BUMEX 2 MG IV ×2 (11:23→17:32)
--- NOTE | 2025-10-05 11:55 | W.PN.INTV ---
Today's Communication / Plan
Recommendations
- Continue IV cefepime for now, likely will switch to ciprofloxacin in coming days
- Continue airway clearance with Mucomyst as well as albuterol
- BiPAP nightly, continue to wean oxygen as tolerated
- Follow-up chest x-ray in a.m.
Assessment
-
80-year-old gentleman with delayed hemorrhage, 12 days post cardiac surgery, s/p redo sternotomy, washout and evacuation of approximately 1.5 L of clot from left chest, ligation of mammary vein and distal mammary stump, ligation of large vein
towards the neck, POD # 6
09/30, recurrence of left hemothorax, s/p reexploration and hematoma evacuation, POD# 5
11, persistent hemorrhagic chest tube out put, IR evaluation suggested active arterial extravasation, s/p return to the OR, ligation of arterial vessel and electrocautery, POD# 5
Titrate off pressors per protocol, currently MAP is 72. Off Levophed and off dobutamine. Not on any pressor support.
ECHO from 09/23, LVEF 40 to 45%.
Management of chest tubes per primary service.
Patient currently extubated, on mid flow at 12 L supplemental oxygen. Work of breathing acceptable. Nightly BiPAP.
10/01, patient was extubated, had to be re-intubated for respiratory distress.
10/02, Bronchoscopy and BAL of RUL performed for airway clearance.
CXR suggestive of worsening of bilateral opacities concerning for atelectasis versus pneumonia.
Started on IV cefepime for Pseudomonas growing in BAL. Klebsiella also noted. WBC count finally improving.
Continue IV cefepime for now, will consider switching to ciprofloxacin in coming days.
No prior history of pulmonary disease, except for 4 mm nodule in the right lower lobe.
Aspiration precautions
Encouraged incentive spirometry, OOB/ambulation/early mobility
Advance diet as tolerated following extubation
GI prophylaxis: Protonix
Monitor critical I/O's
Kee/chest tube output
Hb/platelets postoperatively stable. S/p PRBC, hemoglobin was as low as 7.6. Most recent 10.5.
Trend CBC for now
Can transfuse if indicated for Hb <7, plt <50 in surgical patients
DVT prophylaxis including SCDs
Other medical diagnoses:
- Acute blood loss anemia due to delayed hemorrhage post CABG, s/p redo sternotomy x 3, and evacuation of clot as well as ligation of mammary vein, subsequent arterial ligation and cautery.
- Shock, hemorrhagic and suspect concomitant cardiogenic. Resolving. Off levophed now. Dobutamine weaned off.
- Atrial fibrillation with rapid ventricular rate. On amiodarone infusion now.
- History of coronary artery disease, s/p coronary artery bypass grafting 09/2025, patent graft as per cardiac catheterization on 09/29.
- Ischemic cardiomyopathy, HFrEF. Had been on Bumex infusion, currently stopped in view of developing MONO as well as mild hyponatremia.
- Hypertension, hyperlipidemia
- History of CLL with chronic thrombocytopenia
- GERD
- Depression/anxiety
- History of SYDNI
- History of BPH
Critical Care time [45] mins -- The patient is admitted for acute critical illness for the treatment of vital organ failure and/or prevention of further life-threatening conditions. Total care includes time spent in review of history, physical exam,
medications, hemodynamic/ventilator parameters, laboratory data, imaging and discussion with house staff, pharmacy, respiratory therapy, recycling technician, and nursing
Data:
CXR 09/2025: Interval advancement of the pulmonary artery catheter with tip in appropriate positioning. Stable appearance of the additional support lines and tubes.
Unchanged mild basilar opacities favored to represent atelectasis. No pneumothorax.
CTA Chest 09/2025: New moderate size slightly high attenuation density pericardial effusion especially posteriorly (slight increased density on postcontrast images) with findings suspicious for small volume active bleeding within as detailed above
as well as new moderate size left pleural effusion in comparison to recent prior CTA. Findings discussed by telephone with Dr. Nash in the emergency department at approximately [address] Cartagena at approximately 1738 hours on September
2024.
Slightly high attenuation density fluid suggested within small volume urinary bladder as well as Kee catheter possibly representing some blood products/proteinaceous material.
Additional nonurgent findings as detailed above, some of which include left lower lobe consolidation, small right pleural effusion, bilateral simple renal cysts and prior cholecystectomy.e
LHC 09/29/2025: 1: Widely patent grafts with no obvious source of bleeding.
2: Unremarkable aortogram in IRISH and THOMASON projections with no obvious source of bleeding.
ECHO 09/23/2025: 1. Ejection fraction is 40-45% by visual assessment.
2. Normal left ventricular size, wall thickness and systolic function. No regional wall motion abnormalities are seen.
3. Aortic sclerosis with trace aortic regurgitation is seen.
4. Left ventricular wall motion is diffusely hypokinetic.
5. Thickened mitral leaflets with adequate leaflet excursion. Mild mitral annular calcification. Trace mitral regurgitation.
Subjective Dataa
Subjective Data
Date of Service:
Date of Service: October 05, 2025
Subjective:
Comfortably sitting in bed in no acute distress.
Review of Systems
Genitourinary: Other (Appears comfortable, no new symptoms reported.)
Objective Data
Data Reviewed
Vital Signs / I&O / Oxygen:
Vital Signs
Temp Pulse Resp BP Pulse Ox
98.2 F 103 36 133/65 98
10/05/25 11:00 10/05/25 11:00 10/05/25 11:00 10/02/25 15:00 10/05/25 11:00
Intake and Output
10/04/25 10/05/25 10/06/25
06:59 06:59 06:59
Intake Total 1721.2 / 1761.9 991.3 / 1075.5 518.5 / 518.5
Output Total 5260 / 5435 3720 / 3820 290 / 290
Balance -3538.8 / -3673.1 -2728.7 / -2744.5 228.5 / 228.5
SaO2 [CPAP/PSV] 96
SaO2 [SIMV] 99
SaO2 [CPAP] 97
SaO2 [A/C] 96
SaO2 98
Nasal Cannula flow liters per 6
minute
Physical Exam
General: Comfortable
HEENT: Normocephalic
Cardiovascular: S1-S2 and Peripheral Edema (Lower extremities edema quite improved, persistent upper extremities edema)
Respiratory: Crackles (Improving)
GI: Soft and Non Distended
Neurology: Awake and Alert
Skin: Warm
Labs/Micro/Reports
Lab Data
10/05/25 04:08
10/05/25 04:08
Laboratory Results
10/05/25 10/05/25
05:09 10:42
pH 7.48 H 7.48 H
pCO2 36 37
pO2 83 63 L
HCO3 26.8 27.6
O2 Delivery Level 12l mid-flow
Microbiology
10/02/25 09:27 Bronch Right Upper Lobe Respiratory Culture - Final
Pseudomonas aeruginosa
Klebsiella oxytoca
10/02/25 09:27 Bronch Right Upper Lobe Gram Stain - Final
[2025-10-05 13:15] VITALS: BP 113/65; BP 135/56; PULSE 112; O2SAT 94
[2025-10-05 14:26] VITALS: BP 113/65; BP 135/56; PULSE 112; O2SAT 94
--- NOTE | 2025-10-05 14:28 | PTCARENOTE ---
Pt transferred to room 2264 with Amna lift. Lifted to recliner, sitting up , Pulse ox of 97% on 10 L midflow. pulse ox 97%. VSS. Assessment otherwise unchanged from prior.
[2025-10-05] MEDS: NSS IV (15:56)
[2025-10-05] MEDS: FLEXBUMIN 100 IV (17:32)
[2025-10-05] MEDS: REMOVE LIDOCAINE PATCH REMOVE (19:22)
--- NOTE | 2025-10-05 20:15 | PTCARENOTE ---
Patient received from RN @ 1900. Patient lying in bed w/ call streeter in reach. AOx3. Moves all extremity appropriately. SR/Sinus tachy/A. Fib on monitor. BP 125/44 HR 96. Heart sounds audible. Rub noted. Radial and pedal pulses present. +2
pitting upper extremity edema bilaterally. + 1 bilateral lower extremity edema noted. POX 98% 10L midflow. Deep breathing and acapella encouraged. IS 500. Course crackles noted in bilateral lung raya throughout. R/L pleural CT set to -20
suction draining serosanguineous fluid. No crepitus, tidaling, or air leaks noted. Bowel sounds normoactive. Kee draining clear yellow urine. Brachial A-line leveled and zeroed. Right PICC patent and intact. All surgical sites C/D/I.
Turning q2hrs and as needed. Gluteal cleft inspected and unchanged. See worklist for more details.
[2025-10-05 20:42] LABS: Blood Urea Nitrogen 97 mg/dl (9-20); Calcium 8.7 mg/dl (8.4-10.2); Carbon Dioxide 29 mmol/L (22-30); Chloride 112 mmol/L (98-107); Estimated Creatinine Clearance 25 ml/min; Glucose 132 mg/dl (70-99); Potassium 3.5 mmol/L (3.5-5.1); Sodium 145 mmol/L (135-145); eGFR 29.17
[2025-10-05] MEDS: PROSCAR 5 MG PO (21:18)
[2025-10-05] MEDS: LIPITOR 40 MG PO (21:18)
[2025-10-05 22:20] VITALS: PULSE 3; PULSE 97
[2025-10-05] MEDS: CORDARONE 103 MG IV (22:32)
[2025-10-06] VITALS (16 sets, daily range): BP systolic 103–142; BP diastolic 61–119; PULSE 97; O2SAT 96; BMI 30.4
[2025-10-06] MEDS: TYLENOL ORAL SOLUTION PO (00:08)
[2025-10-06] MEDS: ROXICODONE TUBE ×2 (01:15→08:02)
[2025-10-06] MEDS: FLEXBUMIN 100 IV ×2 (01:18→09:13)
--- NOTE | 2025-10-06 02:03 | PTCARENOTE ---
Patient reassessed. Sinus tachy/A. Fib on monitor. BP 110/56 HR 111. Patient states he is comfortable.
--- NOTE | 2025-10-06 03:56 | W.PN.CT ---
Today's Communication / Plan
-
Plan:
-No major issues overnight. Hemodynamically and neurologically intact
-Weaned off Dobutamine gtt on 10/04. Bumex drip d/c'd on 10/05
-Has been in and out a-fib with RVR postop, currently in A-fib, Amiodarone gtt d/c'd yesterday 10/05. Remains on PO Amiodarone and Toprol XL
-Tolerating resumption of BB, Toprol XL 12.5 mg BID
-Holding ASA, Plavix, Eliquis given recent bleed
-Monitor chest tube drainage for possible d/c: L/R pleural 75/175
-Postop hypernatremia has resolved last night, but back up to 148 this AM, will replete K with kcl in 250 mL of d5w
-Received 25% albumin yesterday, followed by diuresis with Bumex 2mg IV x 2. U/o x 24hrs
-On Cefepime for PNA
-Wean O2 as tolerated, currently On 8L mid-flow with ABG showin.46/40/86/28.4/98.1
-OOB into chair/Ambulate
Assessment / Plan
-
- Delayed hemorrhage 12 days post cardiac surgery- s/p Redo sternotomy; Washout and evacuation of approximately 1.5 L of clot from the left chest; Ligation of mammary vein and distal mammary stump; Ligation of large vein towards the neck; Thorough
evaluation of all bypass grafts by Dr Cartagena on 09/30/25 at 2:30am
- Recurrent hemorrhage with hemodynamic instability- s/p Reexploration of chest, redo sternotomy, evacuation of large clot between the left lower lobe and the pericardium the left side, inspection of all surgical sites which were all hemostatic,
packed with hemostatic agent, repair of chest wall, left lateral thoracotomy connected to the sternotomy incision for visualization, thoracotomy repair by Dr. Cartaegna on 09/30/25 at 4:45 pm
- Continued hemorrhage - s/p angiogram of thoracic aorta and L bronchial artery by IR, Dr. Andrade. Findings at angio suspicious for small volume contrast extravasation distal branch L bronchial artery. Secondary to size and tortuosity of the aorta,
diminutive caliber and tortuosity of L bronchial artery, attempts to advance a microcatheter into the L bronchial artery for embolization were unsuccessful. No immediate procedural complications.
s/p Anterior lateral thoracotomy, ligation of arterial vessel, cautery of raw surface and lung tissue for hemostasis, multiple rounds of packing and serial evaluations of all quadrants, application of topical hemostatic agents, reapproximated ribs
and closure thoracotomy by Dr. Cartagena on 09/30/25 at 10:47 pm, POD#6
Source of bleed was noted to be: Spontaneous bronchial artery
- S/p Recent CABG x 4 surgery with planned Impella 5.5 support on 09/17/25 and discharged home with VN on 09/24/25
- Admitted 09/29/25 with dizziness and near syncope- Delayed post-CABG bleeding /Hemorrhagic shock, acute blood loss anemia
- Ischemic cardiomyopathy with EF of 35%
- Significant pleural effusion with respiratory failure
- Chronic lymphocytic leukemia with chronically elevated white count and thrombocytopenia
- Thrombocytopenia
- Multivessel coronary artery disease- hx PCI with stent
- Chronic systolic CHF with reduced EF
- HTN/HLD
- BPH
- hx Cataracts
- Carpal tunnel and hernia repair
- Cholecystectomy
- MONO on CKD (Cr baseline 1.3-14)
- 12 beat NSVT on 10/01
- PAF
-Acute postop blood loss anemia
-Acute postop respiratory failre-reintubated 10/01/25
-Acute post-op respiratory insufficiency
-Acute postop hypoxemia
-Acute postop hypovolemia and subsequent hypervolemia
-Acute postop Pseudomonas aeruginosa PNA
-Acute postop hypernatremia
-Acute postop hypokalemia
-Acute postop a-fib with RVR
-Acute postop Spontaneous artery bleed
Discussed patient care with: Cardiology, Nursing, Respiratory Therapy, Pharmacy and Care Team
Subjective
-
Date of Service: October 06, 2025
Pt c/o mild incisional pain, otherwise feels well
Objective Data
-
PT 17.6 Sec (11.4-14.6) H 10/01/25 03:36
INR 1.42 10/01/25 03:36
APTT 33.5 Sec (23.4-35.0) 10/01/25 03:36
Vital Signs
Vital Signs
Temp Pulse Resp BP Pulse Ox
98.6 F 105 14 131/48 96
10/06/25 03:00 10/06/25 03:00 10/06/25 03:00 10/05/25 19:59 10/06/25 03:00
CT Intake/Output/Weight
10/05/25 10/05/25 10/06/25
06:59 18:59 06:59
Intake Total 187.7 / 1075.5 731.9 / 731.9
Output Total 1215 / 3820 1210 / 2395 1185 / 2395
Balance -1027.3 / -2744.5 -478.1 / -1663.1 -1185 / -1663.1
SaO2: 96 (8L midflow )
Physical Exam
-
General: Awake, Oriented and AOx3
Cardiovascular: Irregular rate & rhythm (a-fib), No Murmurs, No Rub and No Gallop
Respiratory: Decreased Breath Sounds (at bases, otherwise clear)
Sternum: Stable
Incision: Clean, Dry, Intact and Dressing Intact
Extremities: Edema +1
Data Reviewed
-
Lab Results: Results Reviewed
Medications: Active Meds Reviewed
Chest X-Ray: Report Reviewed and Image Reviewed
CT Scan: Report Reviewed and Image Reviewed
ECG: Report Reviewed and Image Reviewed
[2025-10-06 04:20] LABS: B.E. 4.2 mmol/L; HCO3 28.4 mmol/L (21-28); O2 Saturation % 98.1 % (94-98); PCO2 40 mmHg (35-48); PO2 86 mmHg (83-108)
[2025-10-06 04:23] LABS: Hematocrit 27.9 % (39.0-52.0); Hemoglobin 9.1 g/dL (13.0-18.0); Mean Corp Hgb Conc. 32.6 g/dL (33.0-37.0); Mean Corpuscular Volume 94.6 fL (80.0-94.0); Platelet Count 136 10^3/uL (130-400); Red Cell Dist. Width 16.7 % (11.5-14.5)
[2025-10-06 04:38] LABS: ALT (SGPT) 12 U/L (0-50); AST (SGOT) 24 U/L (17-59); Albumin 2.9 g/dl (3.5-5.0); Alkaline Phosphatase 86 U/L (38-126); Blood Urea Nitrogen 93 mg/dl (9-20); Calcium 8.4 mg/dl (8.4-10.2); Carbon Dioxide 32 mmol/L (22-30); Chloride 113 mmol/L (98-107); Estimated Creatinine Clearance 22 ml/min; Glucose 116 mg/dl (70-99); Potassium 3.4 mmol/L (3.5-5.1); Sodium 151 mmol/L (135-145); Total Protein 4.9 g/dl (6.3-8.2); eGFR 25.02
[2025-10-06] MEDS: TYLENOL ORAL SOLUTION 650 MG PO ×4 (05:07→23:19)
--- NOTE | 2025-10-06 05:22 | PTCARENOTE ---
Patient reassessed. Sinus tachy/A. Fib on monitor. BP 109/55 HR 112 POX 96% 8L NC. labs drawn and CT PA Ed notified.
[2025-10-06 05:53] LABS: Blood Urea Nitrogen 97 mg/dl (9-20); Calcium 8.6 mg/dl (8.4-10.2); Carbon Dioxide 32 mmol/L (22-30); Chloride 112 mmol/L (98-107); Estimated Creatinine Clearance 27 ml/min; Glucose 111 mg/dl (70-99); Magnesium 3.0 mg/dl (1.6-2.3); Potassium 3.5 mmol/L (3.5-5.1); Sodium 148 mmol/L (135-145); eGFR 27.66
[2025-10-06] MEDS: KCL 270 MEQ IV (06:17)
[2025-10-06] MEDS: MUCOMYST 20% 2 ML INH ×3 (07:20→19:47)
[2025-10-06] MEDS: VENTOLIN NEBULES 2.5 MG INH ×3 (07:20→19:47)
[2025-10-06] MEDS: PROTONIX 40 MG PO (08:01)
[2025-10-06] MEDS: PACERONE 200 MG TUBE ×3 (08:01→21:11)
[2025-10-06] MEDS: NEURONTIN PO ×2 (08:02→19:16)
[2025-10-06] MEDS: DIAMOX 500 MG PO (08:02)
[2025-10-06] MEDS: TOPROL XL 12.5 MG PO (08:02)
[2025-10-06] MEDS: SENOKOT 8.6 MG PO ×2 (08:02→20:58)
[2025-10-06] MEDS: LIDOCAINE 4% PATCH TOPICAL (08:02)
[2025-10-06] MEDS: NSS (PRESERVATIVE FREE) IV (08:02)
--- NOTE | 2025-10-06 08:02 | W.PN.CARDCBS ---
Today's Communication / Plan
-
Holding DAPT and oral anticoagulation
Amiodarone and metoprolol for atrial fibrillation which is ongoing
Aim for negative fluid balance with diuretic IV
Will follow closely with you
Impression / Plan
-
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
Impression:
Near syncope, hypotension with Hemorrhagic shock
s/p multiple chest reexplorations Sep 30 2025
Delayed post CABG bleeding, source unclear
Left hemothorax status post chest tube
Posterior pericardial effusion with contrast extravasation with concern delayed bleeding graft bleeding not demonstrated via urgent cardiac catheterization
NSVT, ventricular bigeminy
Postop anemia with acute blood loss requiring multiple transfusions
Elective CABG x 4 [VASQUEZ�LAD, SVG�PDA, SVG�DX�OM] with placement of a 5.5 Impella 09/17/[address] Cartagena
Ischemic cardiomyopathy with preoperative ejection fraction 15 to 20% and postoperative ejection fraction 40%
History of BPH with postoperative urinary retention requiring Kee catheter
Hypertension
Hyperlipidemia
SYDNI
Polycythemia vera
CLL with chronic thrombocytopenia
Spinal stenosis
GERD
Depression/anxiety
Echo Sep 23 2025: EF 40-45% no significant valve disease
Urgent bedside echo very limited Sep 29 2025 as below
Urgent left cath Sep 29 2025: Widely patent grafts with no obvious source of bleeding.
Plan:
-80-year-old gentleman status post recent CABG with Impella on September 17, 2025 who presented back critically ill with hemorrhagic shock with CT placement in ER for hemothorax underwent multiple surgeries 09/30 ultimately resulting in anterolateral
thoracotomy, ligation of arterial vessel
- Extubated on nasal cannula
-Chest x-ray 10/04/2025 shows new patchy airspace in right upper lobe likely atelectasis. Sputum culture grew Pseudomonas aeruginosa. Started cefepime by CTS 10/04/2025
- Off pressor
- Renal function noted. Continue negative fluid balance. He looks more comfortable today.
- Given bleeding and need for reoperation difficult decision regarding oral anticoagulation. I would favor monotherapy with Eliquis 2.5 mg twice daily dose adjusted for age and renal function given his need for graft patency and ongoing atrial
fibrillation with thromboembolic risk. Timing of initiation I would defer to my surgical colleagues but would favor that as the regimen at discharge if deemed safe from a surgical perspective. His demonstrated bleeding may make this regimen too
high risk and defer to surgical team
- Currently in rate controlled atrial fibrillation. Back on amiodarone. Will need to monitor QTc closely.
-prognosis remains guarded but slowly improving
-continue post op care
-d/w nursing, CT surg PERFORATOR. d/w at bedside
HPI: I had the pleasure to meet Eyad Hackett along with his Harriet in ER bed 17 for evaluation of hypotension and several episodes of near syncope with falls and shortness of breath status post recent CABG x [address] Cartagena on September 17, 2025.
He is followed by Dr. Paez with [facility]. Reg has a history of ischemic cardiomyopathy with an ejection fraction 15% and known multivessel coronary artery disease who had a recent positive stress test and subsequent left heart catheterization
demonstrating multivessel coronary disease referred for CABG. Additionally, he has a history of hypertension, hyperlipidemia, BPH with urinary retention, CLL with chronic thrombocytopenia, and sleep apnea.
.
He was admitted electively September 15, 2025 and placed on a dobutamine drip and underwent diuresis for optimization prior to elective CABG x 4 [VASQUEZ�LAD, SVG�PDA, SVG�DX�OM] with placement of a 5.5 Impella 09/17/[address] Cartagena; impella was removed
on September 19. A repeat echocardiogram on dobutamine reported an improved ejection fraction around 40%. Postoperative course was complicated by hypotension, acute on chronic renal insufficiency and urinary retention. He was weaned off inotropes,
pressors and midodrine prior to discharge home on September 24. His hospital course was complicated by urinary retention and he was discharged home with a Kee catheter. His discharge medications include aspirin 81 mg daily, Plavix 75 mg daily,
metoprolol succinate 12.5 mg twice daily, Bumex 2 mg daily, Jardiance 10 mg daily.
.
Patient and his states that he has been feeling fine since discharge until this morning. Following breakfast fell felt like he had to go to the bathroom and have a bowel movement however on his way to the restroom with the assistance of his
he became extremely shaky and weak. She was able to get him to the bathroom where he fell to his knees. She denies loss of consciousness or head trauma. He ultimately never had a bowel movement. He had 3 more near-syncopal events with
profound weakness and increasing shortness of breath prompting return to the emergency department. He denies chest pain or pressure. He denies fevers or chills. He denies chest wall or head trauma with falls. In the emergency department he was
noted to be hypotensive with initial blood pressures reportedly 60s and 70s systolic which responded initially to IV fluids. Initial chest x-ray showed widened mediastinum and globular heart with elevated left hemidiaphragm and a new large opacity
in the left hemithorax. Initial twelve-lead EKG was sinus rhythm with PACs and an incomplete left bundle branch block with ST-T wave abnormalities in the inferior lateral leads with prolonged QT at 500 ms not significantly changed from prior study.
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 Initial hemoglobin 8.6, hemoglobin 8.9 on day of discharge September 24. Platelets 357. Sodium 136, potassium 3.4. BUN and creatinine 23/1.4. Creatinine was 1.2
on day of discharge. I within normal limits. Cardiac troponin 0.065. proBNP 4700. Procalcitonin less than 0.05. Lactate 2.
.
Patient was seen and examined with Dr. Cartagena and CT surgery PA as well as ER physician Dr. Nash. Stat CTA of the chest demonstrated new large left pleural effusion and tiny right pleural effusion. There was a pericardial effusion posteriorly
which demonstrated contrast extravasation and pooling raising concern for delayed bleeding from one of the grafts. A chest tube was placed by CT surgery in the emergency room with significant bloody drainage, totaling 2.7 L following urgent cardiac
catheterization. Patient was transported to cardiac cath where he was electively intubated with anesthesia. Interventional cardiology performed emergent coronary angiography and arteriogram with no obvious extravastion identified in grafts or at
site of Impella graft. He was then transported to the CVICU for close monitoring on Levophed having received 3 units packed red blood cells.
Progress Note - [employer]
Subjective
Date of Service: October 06, 2025
A little better today
Objective
Labs:
10/06/25 04:07
10/06/25 05:03
Labs
Hgb 9.1 g/dL (13.0-18.0) L 10/06/25 04:07
Hct 27.9 % (39.0-52.0) L 10/06/25 04:07
Plt Count 136 10^3/uL (130-400) 10/06/25 04:07
PT 17.6 Sec (11.4-14.6) H 10/01/25 03:36
INR 1.42 10/01/25 03:36
APTT 33.5 Sec (23.4-35.0) 10/01/25 03:36
Sodium 148 mmol/L (135-145) H 10/06/25 05:03
Potassium 3.5 mmol/L (3.5-5.1) 10/06/25 05:03
BUN 97 mg/dl (9-20) H 10/06/25 05:03
Creatinine 2.3 mg/dL (0.7-1.3) H 10/06/25 05:03
Glucose 111 mg/dl (70-99) H 10/06/25 05:03
Vital Signs and I&O:
Vital Signs
Temp Pulse Resp BP Pulse Ox
98.6 F 104 20 131/48 99
10/06/25 03:00 10/06/25 07:24 10/06/25 07:24 10/05/25 19:59 10/06/25 07:24
Vital Signs
Temp Pulse Resp BP Pulse Ox
98.6 F 104 20 131/48 99
10/06/25 03:00 10/06/25 07:24 10/06/25 07:24 10/05/25 19:59 10/06/25 07:24
Intake & Output
10/04/25 10/05/25 10/06/25 10/07/25
06:59 06:59 06:59 06:59
Intake Total 1721.2 / 1761.9 991.3 / 1075.5 731.9 / 731.9
Output Total 5260 / 5435 3720 / 3820 2735 / 2795 60 /
Balance -3538.8 / -3673.1 -2728.7 / -2744.5 -2002.1 / -2062.1 -60 / -60
Physical Exam
Physical Exam
����Physical Exam
���������������������General:��no apparent distress, not acutely ill
���������������������������Neck:��supple. no meningeal signs. normal psoterior pharynx
������������������������
���������������������������Heart:�Cor irregularly irregular
Sternum intact
��������������������������Lungs: ��no acute respiratory distress. clear bilaterally
����������������������Abdomen:�normal bowel sounds. not tender. no CVAT
��������������������������Neuro:��alert and oriented. no focal neurological deficits
������������������������������Skin: ��no rash
�����������������������Psychiatric:�well kept. interactive and cooperative
�����������������������Extremities:��no edema. no calf tenderness. negative homans. good distal pulses
��
�
--- NOTE | 2025-10-06 08:14 | PTCARENOTE ---
Assumed care of patient from manufacturing shift supervisor RN. AAO x 3 Sitting up in bed, more alert and conversive this morning. A fib 100 on monitor. 8 L mid flow pulse ox 96%. Chest tubes x 2 to - 20 cm suction. No air leak or crepitus noted. Abdomen obese,
round, with positive bowel sounds t/o, states passing flatus. Appetite improving. Plus 1-2 upper extremity edema appreciated b/l. Bilateral lower extremity with plus 1 edema. Pulses weakly palpable. Plan for day discussed.
[2025-10-06] MEDS: BUMEX 2 MG IV ×3 (09:10→21:13)
[2025-10-06] MEDS: STERILE WATER FOR INJECTION 10 ML IV (09:16)
[2025-10-06] MEDS: MAXIPIME 1000 MG IV (09:16)
--- NOTE | 2025-10-06 11:12 | PTCARENOTE ---
Assisted to Chair using Amna lift. Pt washed face, Shampoo cap utilized for hair wash. Teeth cleaned. Able to feed self pudding and pears w/o issue. VSS
--- NOTE | 2025-10-06 11:17 | PTCARENOTE ---
Lt brachial A line removed. Manual pressure applied x 10 minutes, hemostasis achieved. Kee cath removed and male pure wick applied.
[2025-10-06] MEDS: CIPRO 500 MG PO (11:51)
--- NOTE | 2025-10-06 12:00 | W.PN.INTV ---
Today's Communication / Plan
Recommendations
- Transition to PO Ciprofloxacin. Continue until 10/17 (14 days of therapy)
- Wean O2 as tolerated
- Continue Albuterol and Mucinex, can d/c once secretions become more manageable
- Pulm/Gluing Machine Operator Automatic team will sign off, please call as needed
Assessment
-
80-year-old gentleman with delayed hemorrhage, 12 days post cardiac surgery, s/p redo sternotomy, washout and evacuation of approximately 1.5 L of clot from left chest, ligation of mammary vein and distal mammary stump, ligation of large vein
towards the neck, POD # 7
09/30, recurrence of left hemothorax, s/p reexploration and hematoma evacuation, POD# 6
09/30, persistent hemorrhagic chest tube out put, IR evaluation suggested active arterial extravasation, s/p return to the OR, ligation of arterial vessel and electrocautery, POD# 6
Titrate off pressors per protocol, off all pressors now
ECHO from 09/23, LVEF 40 to 45%.
Management of chest tubes per primary service.
Patient currently extubated, on mid flow at 8 L supplemental oxygen. Work of breathing acceptable. Nightly BiPAP.
O2 need continues to decrease
10/01, patient was extubated, had to be re-intubated for respiratory distress.
10/02, Bronchoscopy and BAL of RUL performed for airway clearance.
CXR with improving aeration.
Started on IV cefepime for Pseudomonas growing in BAL. Klebsiella also noted. WBC count continues to improve
IV cefepime switched to ciprofloxacin, favor 14 days of treatment in view of Pseudomonas and Klebsiella on BAL
No prior history of pulmonary disease, except for 4 mm nodule in the right lower lobe.
Aspiration precautions
Encouraged incentive spirometry, OOB/ambulation/early mobility
Advance diet as tolerated following extubation
GI prophylaxis: Protonix
Monitor critical I/O's
Kee/chest tube output
Trend CBC for now
Can transfuse if indicated for Hb <7, plt <50 in surgical patients
DVT prophylaxis including SCDs
Other medical diagnoses:
- Acute blood loss anemia due to delayed hemorrhage post CABG, s/p redo sternotomy x 3, and evacuation of clot as well as ligation of mammary vein, subsequent arterial ligation and cautery.
- Shock, hemorrhagic and suspect concomitant cardiogenic. Resolving. Off levophed now. Dobutamine weaned off.
- Atrial fibrillation with rapid ventricular rate. On amiodarone infusion now.
- History of coronary artery disease, s/p coronary artery bypass grafting 09/2025, patent graft as per cardiac catheterization on 09/29.
- Ischemic cardiomyopathy, HFrEF. Had been on Bumex infusion, currently stopped in view of developing MONO as well as mild hyponatremia. on IV BID dosing now.
- Hypertension, hyperlipidemia
- History of CLL with chronic thrombocytopenia
- GERD
- Depression/anxiety
- History of SYDNI
- History of BPH
Discussed with primary team. Pulmonary/critical care team will sign off, please call as needed.
Critical Care time [46] mins -- The patient is admitted for acute critical illness for the treatment of vital organ failure and/or prevention of further life-threatening conditions. Total care includes time spent in review of history, physical exam,
medications, hemodynamic/ventilator parameters, laboratory data, imaging and discussion with house staff, pharmacy, respiratory therapy, musical performer, and nursing
Data:
CXR 09/2025: Interval advancement of the pulmonary artery catheter with tip in appropriate positioning. Stable appearance of the additional support lines and tubes.
Unchanged mild basilar opacities favored to represent atelectasis. No pneumothorax.
CTA Chest 09/2025: New moderate size slightly high attenuation density pericardial effusion especially posteriorly (slight increased density on postcontrast images) with findings suspicious for small volume active bleeding within as detailed above
as well as new moderate size left pleural effusion in comparison to recent prior CTA. Findings discussed by telephone with Dr. Nash in the emergency department at approximately [address] Cartagena at approximately 1738 hours on September
2024.
Slightly high attenuation density fluid suggested within small volume urinary bladder as well as Kee catheter possibly representing some blood products/proteinaceous material.
Additional nonurgent findings as detailed above, some of which include left lower lobe consolidation, small right pleural effusion, bilateral simple renal cysts and prior cholecystectomy.e
LHC 09/29/2025: 1: Widely patent grafts with no obvious source of bleeding.
2: Unremarkable aortogram in BECKI and THOMASON projections with no obvious source of bleeding.
ECHO 09/23/2025: 1. Ejection fraction is 40-45% by visual assessment.
2. Normal left ventricular size, wall thickness and systolic function. No regional wall motion abnormalities are seen.
3. Aortic sclerosis with trace aortic regurgitation is seen.
4. Left ventricular wall motion is diffusely hypokinetic.
5. Thickened mitral leaflets with adequate leaflet excursion. Mild mitral annular calcification. Trace mitral regurgitation.
Subjective Dataa
Subjective Data
Date of Service:
Date of Service: October 06, 2025
Subjective:
Comfortably sitting in bed in no acute distress.
Review of Systems
Genitourinary: Other (No new symptoms reported)
Objective Data
Data Reviewed
Vital Signs / I&O / Oxygen:
Vital Signs
Temp Pulse Resp BP Pulse Ox
98.4 F 106 24 130/76 95
10/06/25 08:00 10/06/25 10:50 10/06/25 10:00 10/06/25 10:00 10/06/25 10:56
Intake and Output
10/05/25 10/06/25 10/07/25
06:59 06:59 06:59
Intake Total 991.3 / 1075.5 731.9 / 731.9 605.0 / 605.0
Output Total 3720 / 3820 2735 / 2795 170 / 170
Balance -2728.7 / -2744.5 -2003.1 / -2063.1 435.0 / 435.0
SaO2 [CPAP/PSV] 96
SaO2 [SIMV] 99
SaO2 [CPAP] 97
SaO2 [A/C] 96
SaO2 95
Nasal Cannula flow liters per 10
minute
Physical Exam
General: Comfortable
HEENT: Normocephalic
Cardiovascular: S1-S2 and Peripheral Edema (Lower extremities edema quite improved, persistent upper extremities edema)
Respiratory: Crackles (Improved air entry, minimal crackles)
GI: Soft and Non Distended
Neurology: Awake and Alert
Skin: Warm
Labs/Micro/Reports
Lab Data
10/06/25 04:07
10/06/25 05:03
Laboratory Results
10/06/25
04:08
pH 7.46 H
pCO2 40
pO2 86
HCO3 28.4 H
O2 Delivery Level 8l midflow
Microbiology
10/02/25 09:27 Bronch Right Upper Lobe Respiratory Culture - Final
Pseudomonas aeruginosa
Klebsiella oxytoca
10/02/25 09:27 Bronch Right Upper Lobe Gram Stain - Final
[2025-10-06] MEDS: NSS IV (13:25)
[2025-10-06] MEDS: KCL 20 MEQ PO (13:35)
--- NOTE | 2025-10-06 16:02 | PTCARENOTE ---
Bilateral pleural chest tubes removed per order. Pt tolerated w/o issue. Assisted to BSC using Amna lift able to stand with x 3 assist after. VSS. In great spirits!! Assessment other valera unchanged from prior.
[2025-10-06] MEDS: REMOVE LIDOCAINE PATCH REMOVE (19:17)
--- NOTE | 2025-10-06 19:31 | PTCARENOTE ---
Patient received from RN @ 1900. Patient lying in bed w/ call streeter in reach. AOx3. Moves all extremity appropriately. SR on monitor. BP 141/69 HR 82. Heart sounds audible. Radial and pedal pulses present. +2 pitting upper extremity edema
bilaterally. + 1 bilateral lower extremity edema noted. POX 99 6L midflow. Deep breathing and acapella encouraged. IS 500. Course crackles noted in bilateral lung raya throughout. Bowel sounds normoactive. Appetite improving. Male Purewick
draining clear yellow urine. Right PICC patent and intact. All surgical sites C/D/I. Turning q2hrs and as needed. Gluteal cleft inspected and unchanged. See worklist for more details.
[2025-10-06] MEDS: TOPROL XL 25 MG PO (20:58)
[2025-10-06] MEDS: LIPITOR 40 MG PO (21:10)
[2025-10-06] MEDS: PROSCAR 5 MG PO (21:11)
--- NOTE | 2025-10-06 22:21 | PTCARENOTE ---
Large loose BM noted. Stage 2 pressure injury in gluteal fold. Barrier cream applied and turning q2 hours and as needed.
[2025-10-06 23:25] LABS: Blood Urea Nitrogen 87 mg/dl (9-20); Calcium 8.5 mg/dl (8.4-10.2); Carbon Dioxide 32 mmol/L (22-30); Chloride 108 mmol/L (98-107); Estimated Creatinine Clearance 24 ml/min; Glucose 97 mg/dl (70-99); Magnesium 2.8 mg/dl (1.6-2.3); Potassium 3.2 mmol/L (3.5-5.1); Sodium 143 mmol/L (135-145); eGFR 23.87
--- NOTE | 2025-10-06 23:54 | W.PN.CT ---
Today's Communication / Plan
-
Plan:
-No major issues overnight. Hemodynamically and neurologically intact
-Weaned off Dobutamine gtt on 10/04. Bumex drip d/c'd on 10/05
-Has been in and out a-fib with RVR postop, currently in NSR, Amiodarone gtt d/c'd on 10/05. Remains on PO Amiodarone and Toprol XL
-Tolerating resumption of BB, will increase Toprol XL from 12.5 mg BID to 25 mg BID
-Holding ASA, Plavix, Eliquis given recent bleed
-D/C'd remaining pleural chest tube yesterday 10/06. F/U CXR
-Postop hypokalemia and hypernatremia, will treat with 40 meq kcl in 250 mL of d5w
-Currently receiving diuresis with Bumex 2mg IV TID and Diamox. Replete electrolytes
-Cefepime switched to Ciprofloxacin for PNA, to continue until 10/17 per Pulm/software engineering analyst
-New onset diarrhea likely secondary to antibiotics, d/c'd Senokot, magnesium on hold, will obtain c.difficile sample, will add probiotics and prn Immodium
-Wean O2 as tolerated, currently on 4L NC with O2 sats of 96%
-OOB into chair/Ambulate
-PT/OT following and recommend eventual acute rehab placement, will consult Physiatry
Assessment / Plan
-
- Delayed hemorrhage 12 days post cardiac surgery- s/p Redo sternotomy; Washout and evacuation of approximately 1.5 L of clot from the left chest; Ligation of mammary vein and distal mammary stump; Ligation of large vein towards the neck; Thorough
evaluation of all bypass grafts by Dr Cartagena on 09/30/25 at 2:30am
- Recurrent hemorrhage with hemodynamic instability- s/p Reexploration of chest, redo sternotomy, evacuation of large clot between the left lower lobe and the pericardium the left side, inspection of all surgical sites which were all hemostatic,
packed with hemostatic agent, repair of chest wall, left lateral thoracotomy connected to the sternotomy incision for visualization, thoracotomy repair by Dr. Cartagena on 09/30/25 at 4:45 pm
- Continued hemorrhage - s/p angiogram of thoracic aorta and L bronchial artery by IR, Dr. Andrade. Findings at angio suspicious for small volume contrast extravasation distal branch L bronchial artery. Secondary to size and tortuosity of the aorta,
diminutive caliber and tortuosity of L bronchial artery, attempts to advance a microcatheter into the L bronchial artery for embolization were unsuccessful. No immediate procedural complications.
s/p Anterior lateral thoracotomy, ligation of arterial vessel, cautery of raw surface and lung tissue for hemostasis, multiple rounds of packing and serial evaluations of all quadrants, application of topical hemostatic agents, reapproximated ribs
and closure thoracotomy by Dr. Cartagena on 09/30/25 at 10:47 pm, POD#7
Source of bleed was noted to be: Spontaneous bronchial artery
- S/p Recent CABG x 4 surgery with planned Impella 5.5 support on 09/17/25 and discharged home with VN on 09/24/25
- Admitted 09/29/25 with dizziness and near syncope- Delayed post-CABG bleeding /Hemorrhagic shock, acute blood loss anemia
- Ischemic cardiomyopathy with EF of 35%
- Significant pleural effusion with respiratory failure
- Chronic lymphocytic leukemia with chronically elevated white count and thrombocytopenia
- Thrombocytopenia
- Multivessel coronary artery disease- hx PCI with stent
- Chronic systolic CHF with reduced EF
- HTN/HLD
- BPH
- hx Cataracts
- Carpal tunnel and hernia repair
- Cholecystectomy
- MONO on CKD (Cr baseline 1.3-14)
- 12 beat NSVT on 10/01
- PAF
-Acute postop blood loss anemia
-Acute postop respiratory failre-reintubated 10/01/25
-Acute post-op respiratory insufficiency
-Acute postop hypoxemia
-Acute postop hypovolemia and subsequent hypervolemia
-Acute postop Pseudomonas aeruginosa PNA
-Acute postop hypernatremia
-Acute postop hypokalemia
-Acute postop a-fib with RVR
-Acute postop Spontaneous bronchial artery bleed
Discussed patient care with: Cardiology, Nursing, Respiratory Therapy, Pharmacy and Care Team
Subjective
-
Date of Service: October 06, 2025
Pt c/o diarrhea
Objective Data
-
Lab Results
10/06/25 04:07
10/06/25 23:03
PT 17.6 Sec (11.4-14.6) H 10/01/25 03:36
INR 1.42 10/01/25 03:36
APTT 33.5 Sec (23.4-35.0) 10/01/25 03:36
Vital Signs
Vital Signs
Temp Pulse Resp BP Pulse Ox
98.5 F 82 17 132/65 98
10/06/25 23:00 10/06/25 23:00 10/06/25 23:00 10/06/25 20:58 10/06/25 23:00
CT Intake/Output/Weight
10/06/25 10/06/25 10/07/25
06:59 18:59 06:59
Intake Total 965.0 / 965.0
Output Total 1525 / 2795 1580 / 2080 500 / 2080
Balance -1525 / -2063.1 -615.0 / -1115.0 -500 / -1115.0
SaO2: 96 (4L)
Physical Exam
-
General: Awake, Oriented and AOx3
Cardiovascular: Regular rate & rhythm, No Murmurs, No Rub and No Gallop
Respiratory: Decreased Breath Sounds (at bases, otherwise clear)
Sternum: Stable
Incision: Clean, Dry, Intact and Dressing Intact
Extremities: Edema +2
Data Reviewed
-
Lab Results: Results Reviewed
Medications: Active Meds Reviewed
Chest X-Ray: Report Reviewed and Image Reviewed
ECG: Report Reviewed and Image Reviewed
[2025-10-07] VITALS (9 sets, daily range): BP systolic 88–150; BP diastolic 54–99; BMI 28.7
[2025-10-07] MEDS: KCL 270 MEQ IV ×2 (00:04→05:53)
--- NOTE | 2025-10-07 00:09 | PTCARENOTE ---
Patient reassessed. SR on monitor. VSS. Voiding w/ male Purewick. Patient states he is comfortable. Occasional cough noted.
--- NOTE | 2025-10-07 02:44 | PTCARENOTE ---
Large watery BM noted. Patient washed w/ CHG, gown and bedding changed. Rectal trumpet inserted for watery stool. Sacral barrier cream and pad added to sacrum. Male Purewick changed.
[2025-10-07 04:21] LABS: Hematocrit 29.7 % (39.0-52.0); Hemoglobin 9.7 g/dL (13.0-18.0); Mean Corp Hgb Conc. 32.7 g/dL (33.0-37.0); Mean Corpuscular Volume 94.6 fL (80.0-94.0); Platelet Count 133 10^3/uL (130-400); Red Cell Dist. Width 16.9 % (11.5-14.5)
[2025-10-07 04:38] LABS: ALT (SGPT) 14 U/L (0-50); AST (SGOT) 35 U/L (17-59); Albumin 3.0 g/dl (3.5-5.0); Alkaline Phosphatase 93 U/L (38-126); Blood Urea Nitrogen 85 mg/dl (9-20); Calcium 8.3 mg/dl (8.4-10.2); Carbon Dioxide 31 mmol/L (22-30); Chloride 111 mmol/L (98-107); Estimated Creatinine Clearance 23 ml/min; Glucose 101 mg/dl (70-99); Magnesium 2.7 mg/dl (1.6-2.3); Potassium 3.9 mmol/L (3.5-5.1); Sodium 148 mmol/L (135-145); Total Protein 5.0 g/dl (6.3-8.2); eGFR 22.82
--- NOTE | 2025-10-07 04:44 | PTCARENOTE ---
Addendum entered by Flo Boucher RN 10/07/25 05:02:
Patient placed on Enhanced contact precautions per pending C. Diff sample.
Original Note:
Patient had small loose BM. Rectal trumpet fell out. Patient using bedpan. C. Diff samples sent. Labs obtained.
[2025-10-07] MEDS: IMODIUM 2 MG PO ×2 (04:52→09:08)
[2025-10-07] MEDS: CALCIUM GLUCONATE 130 MG IV (05:53)
[2025-10-07] MEDS: TYLENOL ORAL SOLUTION PO ×2 (05:59→13:08)
[2025-10-07] MEDS: VENTOLIN NEBULES 2.5 MG INH ×3 (08:06→19:21)
[2025-10-07] MEDS: MUCOMYST 20% 2 ML INH ×3 (08:06→19:21)
[2025-10-07] MEDS: LIDOCAINE 4% PATCH TOPICAL (08:27)
[2025-10-07] MEDS: NEURONTIN PO ×2 (08:28→19:13)
[2025-10-07] MEDS: NSS (PRESERVATIVE FREE) IV (08:28)
[2025-10-07] MEDS: VISBIOME 1 CAP PO (08:38)
[2025-10-07] MEDS: PROTONIX 40 MG PO (08:38)
[2025-10-07] MEDS: PACERONE 200 MG TUBE (08:38)
[2025-10-07] MEDS: CIPRO 500 MG PO (08:38)
[2025-10-07] MEDS: TOPROL XL 25 MG PO (08:38)
[2025-10-07] MEDS: BUMEX 2 MG IV ×2 (08:39→22:17)
[2025-10-07] MEDS: DIAMOX 500 MG PO (08:44)
--- NOTE | 2025-10-07 11:00 | PTCARENOTE ---
Patient received from scene shifter RN; AAOx3, responds spontaneously to RN and follows commands; Drowsy; Flat affect and forgetful; VSS; SR with ST and PVC's on monitor; Friction rub present; +2 B/L UE edema and +1 B/L LE edema; +1 DP and radial
pulses; Shallow respirations; Productive, occasional cough with yellow, thick sputum; SpO2 94-98% on 4L Midflow NC; IS 1000 ml; Lungs diminished throughout; Poor appetite; Diarrhea - PRN Imodium given accordingly; Patient incontinent of clear,
yellow urine - external urinary device in place; Surgical incisions and pressure injury dressings intact; Right PICC line in place; See nursing documentation for further information
--- NOTE | 2025-10-07 11:35 | CM ---
Chart reviewed. Patient OOB sitting in the chair. Patient recently discharged from [facility] to home. Patient lives with his in a [address] [address] [facility], [address], [address], ambulates with a RW. Patient is current with [facility]. PT evaluation
recommending Acute Rehab. Referral sent. Plan is for the patient to go to [place] when medically stable. CM to follow
--- NOTE | 2025-10-07 13:17 | W.PN.CARDCBS ---
Addendum entered and electronically signed by Ridge Donohue DO 10/07/25 14:35:
I saw and examined the patient.
The Slitting Machine Operator Helper's note was reviewed and I agree with the note.
Comment:
Plan:
Continues to slowly improve
Continue postop care
Diuresis reduced due to renal insufficiency
Straight cath for urinary retention
Patient is currently high risk for bleeding and NOAC and DAPT are currently deferred.
Both the patient and family member understand his stroke risk versus bleeding risk.
Will likely need rehab at discharge.
Discussed with nursing.
Original Note:
Today's Communication / Plan
-
-cont post op care
-diuretic decreased due to MONO
-no OAC or DAPT at this time due to risk of bleeding
Impression / Plan
-
Primary implementation specialist payroll: Dr. Paez of [facility] [place]
Impression:
Near syncope, hypotension with Hemorrhagic shock
s/p multiple chest reexplorations Sep 30 2025
Delayed post CABG bleeding, source determined to be spontaneous bronchial artery
Left hemothorax status post chest tube
Posterior pericardial effusion with contrast extravasation with concern delayed bleeding graft bleeding not demonstrated via urgent cardiac catheterization
NSVT, ventricular bigeminy
Postop anemia with acute blood loss requiring multiple transfusions
Paroxysmal atrial fibrillation
Elective CABG x 4 [VASQUEZ�LAD, SVG�PDA, SVG�DX�OM] with placement of a 5.5 Impella 09/17/[address] Cartagena
Ischemic cardiomyopathy with preoperative ejection fraction 15 to 20% and postoperative ejection fraction 40%
History of BPH with postoperative urinary retention requiring Kee catheter
Hypertension
Hyperlipidemia
SYDNI
Polycythemia vera
CLL with chronic thrombocytopenia
Spinal stenosis
GERD
Depression/anxiety
Echo Sep 23 2025: EF 40-45% no significant valve disease
Urgent bedside echo very limited Sep 29 2025 as below
Urgent left cath Sep 29 2025: Widely patent grafts with no obvious source of bleeding.
Plan:
-80-year-old gentleman status post recent CABG with Impella on September 17, 2025 who presented back critically ill with hemorrhagic shock with CT placement in ER for hemothorax underwent multiple surgeries 09/30 ultimately resulting in anterolateral
thoracotomy, ligation of arterial vessel
- Extubated on nasal cannula
-Chest x-ray 10/04/2025 shows new patchy airspace in right upper lobe likely atelectasis. Sputum culture grew Pseudomonas aeruginosa. Started cefepime by CTS 10/04/2025 and transitioned to Ciprofloxacin to cont til 10/17
- Off pressors
- Renal function uptrending with creat to 2.7 today. Bumex decreased to 2 mg IV BID dosing (from TID). Wt down 12 lbs overnight-accurate? Continue negative fluid balance.
- per surgical team, given bleeding and need for reoperation difficult decision regarding oral anticoagulation. At this time, per CT surgery, no oral anticoagulation or antiplatelet agents.
If anticoagulation felt to be safe in future, consider monotherapy with Eliquis 2.5 mg twice daily dose adjusted for age and renal function given his need for graft patency and ongoing atrial fibrillation with thromboembolic risk.
- Currently in sinus rhythm and having paroxysms of rate controlled atrial fibrillation. Back on amiodarone. Will need to monitor QTc closely. Check updated 12 lead EKG.
-prognosis remains guarded but slowly improving
-continue post op care
-likely will need acute rehab when ready for discharge
-d/w nursing, CT surg GIMP TACKER.
HPI: I had the pleasure to meet Eyad Hackett along with his Harriet in ER bed 17 for evaluation of hypotension and several episodes of near syncope with falls and shortness of breath status post recent CABG x [address] Cartagena on September 17, 2025.
He is followed by Dr. Paez with [facility]. Reg has a history of ischemic cardiomyopathy with an ejection fraction 15% and known multivessel coronary artery disease who had a recent positive stress test and subsequent left heart catheterization
demonstrating multivessel coronary disease referred for CABG. Additionally, he has a history of hypertension, hyperlipidemia, BPH with urinary retention, CLL with chronic thrombocytopenia, and sleep apnea.
.
He was admitted electively September 15, 2025 and placed on a dobutamine drip and underwent diuresis for optimization prior to elective CABG x 4 [VASQUEZ�LAD, SVG�PDA, SVG�DX�OM] with placement of a 5.5 Impella 09/17/[address] Cartagena; impella was removed
on September 19. A repeat echocardiogram on dobutamine reported an improved ejection fraction around 40%. Postoperative course was complicated by hypotension, acute on chronic renal insufficiency and urinary retention. He was weaned off inotropes,
pressors and midodrine prior to discharge home on September 24. His hospital course was complicated by urinary retention and he was discharged home with a Kee catheter. His discharge medications include aspirin 81 mg daily, Plavix 75 mg daily,
metoprolol succinate 12.5 mg twice daily, Bumex 2 mg daily, Jardiance 10 mg daily.
.
Patient and his states that he has been feeling fine since discharge until this morning. Following breakfast fell felt like he had to go to the bathroom and have a bowel movement however on his way to the restroom with the assistance of his
he became extremely shaky and weak. She was able to get him to the bathroom where he fell to his knees. She denies loss of consciousness or head trauma. He ultimately never had a bowel movement. He had 3 more near-syncopal events with
profound weakness and increasing shortness of breath prompting return to the emergency department. He denies chest pain or pressure. He denies fevers or chills. He denies chest wall or head trauma with falls. In the emergency department he was
noted to be hypotensive with initial blood pressures reportedly 60s and 70s systolic which responded initially to IV fluids. Initial chest x-ray showed widened mediastinum and globular heart with elevated left hemidiaphragm and a new large opacity
in the left hemithorax. Initial twelve-lead EKG was sinus rhythm with PACs and an incomplete left bundle branch block with ST-T wave abnormalities in the inferior lateral leads with prolonged QT at 500 ms not significantly changed from prior study.
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 Initial hemoglobin 8.6, hemoglobin 8.9 on day of discharge September 24. Platelets 357. Sodium 136, potassium 3.4. BUN and creatinine 23/1.4. Creatinine was 1.2
on day of discharge. I within normal limits. Cardiac troponin 0.065. proBNP 4700. Procalcitonin less than 0.05. Lactate 2.
.
Patient was seen and examined with Dr. Cartagena and CT surgery PA as well as ER physician Dr. Nash. Stat CTA of the chest demonstrated new large left pleural effusion and tiny right pleural effusion. There was a pericardial effusion posteriorly
which demonstrated contrast extravasation and pooling raising concern for delayed bleeding from one of the grafts. A chest tube was placed by CT surgery in the emergency room with significant bloody drainage, totaling 2.7 L following urgent cardiac
catheterization. Patient was transported to cardiac cath where he was electively intubated with anesthesia. Interventional cardiology performed emergent coronary angiography and arteriogram with no obvious extravastion identified in grafts or at
site of Impella graft. He was then transported to the CVICU for close monitoring on Levophed having received 3 units packed red blood cells.
Progress Note - Programmer Or Analyst
Subjective
Date of Service: October 07, 2025
OOB in chair
denies SOB
Objective
Labs:
10/07/25 03:56
Labs
Hgb 9.7 g/dL (13.0-18.0) L 10/07/25 03:56
Hct 29.7 % (39.0-52.0) L 10/07/25 03:56
Plt Count 133 10^3/uL (130-400) 10/07/25 03:56
PT 17.6 Sec (11.4-14.6) H 10/01/25 03:36
INR 1.42 10/01/25 03:36
APTT 33.5 Sec (23.4-35.0) 10/01/25 03:36
Sodium 148 mmol/L (135-145) H 10/07/25 03:56
Potassium 3.9 mmol/L (3.5-5.1) 10/07/25 03:56
BUN 85 mg/dl (9-20) H 10/07/25 03:56
Creatinine 2.7 mg/dL (0.7-1.3) H 10/07/25 03:56
Glucose 101 mg/dl (70-99) H 10/07/25 03:56
Vital Signs and I&O:
Vital Signs
Temp Pulse Resp BP Pulse Ox
97.9 F 114 26 119/91 94
10/07/25 12:00 10/07/25 12:50 10/07/25 12:50 10/07/25 11:04 10/07/25 12:50
Vital Signs
Temp Pulse Resp BP Pulse Ox
97.9 F 114 26 119/91 94
10/07/25 12:00 10/07/25 12:50 10/07/25 12:50 10/07/25 11:04 10/07/25 12:50
Intake & Output
10/05/25 10/06/25 10/07/25 10/08/25
06:59 06:59 06:59 06:59
Intake Total 991.3 / 1075.5 731.9 / 731.9 965.0 / 965.0
Output Total 3720 / 3820 2735 / 2795 2330 / 2330 300 / 300
Balance -2728.7 / -2744.5 -2003.1 / -2063.1 -1365.0 / -1365.0 -300 / -300
Physical Exam
Physical Exam
GEN: No distress, awake, Ox3, sitting in chair
HEENT: supple, anicteric, mmm
LUNGS:crackles B/L bases
CV: Reg, S1/S2, 1/6 syst LSB, no murmur
ABD: soft, BS+, NT/ND
EXT: 1+ LE/UE edema
NEURO: Gross non-focal
SKIN: No rash
[2025-10-07] MEDS: FLOMAX 0.4 MG PO (13:21)
--- NOTE | 2025-10-07 14:00 | PTCARENOTE ---
Patient straight cathed for 750 ml of clear, yellow urine; Oxygen weaned to room air - SpO2 93-97% on RA; Patient consistently leaning right in chair despite of extra support - MD Cartagena notified and extra pillows given for extra support on right
side; Patient denies any pain and with no other neurological deficits at this time
[2025-10-07] MEDS: PACERONE 200 MG PO (15:16)
--- NOTE | 2025-10-07 16:58 | PTCARENOTE ---
Patient delirious at times and thinks he's 'in an airplane' - able to be reoriented but still pleasantly confused at times; Patient able to stand with max assist with RW but unable to take any steps or march feet in place; Patient resting
comfortably in chair at this time
[2025-10-07] MEDS: TYLENOL 650 MG PO (17:28)
[2025-10-07] MEDS: REMOVE LIDOCAINE PATCH REMOVE (19:13)
--- NOTE | 2025-10-07 19:43 | PTCARENOTE ---
Patient received from RN @ 1900. Patient lying in bed w/ call streeter in reach. AOx2 and drowsy. Disoriented to place. Nurse re-orients patient to place. Moves all extremity appropriately. SR w/ PVC's and PAC's on monitor. BP 120/99 HR 98.
Heart sounds audible. Radial and pedal pulses present. +2 pitting upper extremity edema bilaterally. + 2 bilateral lower extremity edema noted. POX 95 2L NC. Deep breathing and acapella encouraged. IS 750. Course crackles noted in bilateral
lung raya throughout. Bowel sounds normoactive. Decreased appetite. Male Purewick w/ minimal clear yellow urine. Right PICC patent and intact. All surgical sites C/D/I. Turning q2hrs and as needed. Gluteal cleft inspected and unchanged.
See worklist for more details.
[2025-10-07 21:13] LABS: Glucose - Point of Care 124 mg/dl (70-99)
[2025-10-07 21:39] LABS: Blood Urea Nitrogen 91 mg/dl (9-20); Calcium 8.8 mg/dl (8.4-10.2); Carbon Dioxide 29 mmol/L (22-30); Chloride 109 mmol/L (98-107); Estimated Creatinine Clearance 19 ml/min; Glucose 104 mg/dl (70-99); Magnesium 2.7 mg/dl (1.6-2.3); Potassium 3.8 mmol/L (3.5-5.1); Sodium 142 mmol/L (135-145); eGFR 20.94
--- NOTE | 2025-10-07 21:44 | PTCARENOTE ---
Addendum entered by Flo Boucher RN 10/07/25 22:45:
Incontinent loose BM noted. Patient washed w/ CHG and perineal care performed. New sacral foam barrier applied.
Original Note:
Patient increasing confusion. CT PA Ed notified. No urine output in Male Purewick. Bladder scan for 751mL. CT PA Ed notified. Indwelling Kee catheter placed per CT PA Ed. Blood sugar checked, Labs drawn. ABG obtained per CT PA Ed.
[2025-10-07 21:59] LABS: B.E. 2.2 mmol/L; HCO3 26.5 mmol/L (21-28); O2 Saturation % 99.7 % (94-98); PCO2 39 mmHg (35-48); PO2 109 mmHg (83-108); Potassium 3.0 mMOL/L (3.5-5.1)
[2025-10-07] MEDS: TOPROL XL PO (22:04)
[2025-10-07] MEDS: LIPITOR PO ×2 (22:18→22:27)
[2025-10-07] MEDS: PACERONE PO ×2 (22:18→22:27)
[2025-10-07] MEDS: PROSCAR PO ×2 (22:18→22:27)
--- NOTE | 2025-10-07 22:34 | PTCARENOTE ---
Addendum entered by Flo Boucher RN 10/07/25 22:47:
Hold PO meds for night per CT PA Ed.
Original Note:
Patient unable to swallow. Encouraged small sips and tucking the chin. Patient remained unable to swallow. CT PA Ed notified. Switched PO meds to IV.
[2025-10-07] MEDS: KCL 100 IV (22:38)
[2025-10-07] MEDS: TYLENOL PO (22:47)
--- NOTE | 2025-10-07 23:29 | PTCARENOTE ---
Patient reassessed. Patient sleeping comfortably. SR w/ PVC's on monitor. BP 88/54 HR 82 POX 96% 2L NC. Patient states they are very tired.
[2025-10-08] VITALS (9 sets, daily range): BP systolic 101–128; BP diastolic 54–78; PULSE 88; O2SAT 94; BMI 28.3
--- NOTE | 2025-10-08 04:03 | W.PN.CT ---
Today's Communication / Plan
-
Plan:
-No major issues overnight. Hemodynamically and neurologically intact. A bit lethargic yesterday, but more awake this AM
-Weaned off Dobutamine gtt on 10/04. Bumex drip d/c'd on 10/05
-Has been in and out a-fib with RVR postop, currently in NSR, Amiodarone gtt d/c'd on 10/05. Remains on PO Amiodarone and Toprol XL
-Tolerating resumption of BB, will increase Toprol XL from 12.5 mg BID to 25 mg BID
-Holding ASA, Plavix, Eliquis given recent bleed
-D/C'd remaining pleural chest tube on 10/06. F/U CXR
-Postop acute urinary retention, straight cathed during the day on 10/07 and had retention at night (scanned for > 700 mL) necessitating adler reinsertion. U/O since adler 1600 mL
-Postop hypokalemia, will replete K
-Postop hypernatremia, has resolved with d5w
-Will hold diuresis today, per Dr. Cartagena
-Postop diarrhea likely from antibiotics is subsiding. C. difficile negative. On probiotics and immodium. Senokot and magnesium are on hold
-Cefepime switched to Ciprofloxacin for PNA, to continue until 10/17 per Pulm/drum stenciler
-Wean O2 as tolerated, currently on RA
-OOB into chair/Ambulate
-PT/OT following and recommend eventual acute rehab placement, will consult Physiatry
Assessment / Plan
-
- Delayed hemorrhage 12 days post cardiac surgery- s/p Redo sternotomy; Washout and evacuation of approximately 1.5 L of clot from the left chest; Ligation of mammary vein and distal mammary stump; Ligation of large vein towards the neck; Thorough
evaluation of all bypass grafts by Dr Cartagena on 09/30/25 at 2:30am
- Recurrent hemorrhage with hemodynamic instability- s/p Reexploration of chest, redo sternotomy, evacuation of large clot between the left lower lobe and the pericardium the left side, inspection of all surgical sites which were all hemostatic,
packed with hemostatic agent, repair of chest wall, left lateral thoracotomy connected to the sternotomy incision for visualization, thoracotomy repair by Dr. Cartagena on 09/30/25 at 4:45 pm
- Continued hemorrhage - s/p angiogram of thoracic aorta and L bronchial artery by IR, Dr. Andrade. Findings at angio suspicious for small volume contrast extravasation distal branch L bronchial artery. Secondary to size and tortuosity of the aorta,
diminutive caliber and tortuosity of L bronchial artery, attempts to advance a microcatheter into the L bronchial artery for embolization were unsuccessful. No immediate procedural complications.
s/p Anterior lateral thoracotomy, ligation of arterial vessel, cautery of raw surface and lung tissue for hemostasis, multiple rounds of packing and serial evaluations of all quadrants, application of topical hemostatic agents, reapproximated ribs
and closure thoracotomy by Dr. Cartagena on 09/30/25 at 10:47 pm, POD#8
Source of bleed was noted to be: Spontaneous bronchial artery
- S/p Recent CABG x 4 surgery with planned Impella 5.5 support on 09/17/25 and discharged home with VN on 09/24/25
- Admitted 09/29/25 with dizziness and near syncope- Delayed post-CABG bleeding /Hemorrhagic shock, acute blood loss anemia
- Ischemic cardiomyopathy with EF of 35%
- Significant pleural effusion with respiratory failure
- Chronic lymphocytic leukemia with chronically elevated white count and thrombocytopenia
- Thrombocytopenia
- Multivessel coronary artery disease- hx PCI with stent
- Chronic systolic CHF with reduced EF
- HTN/HLD
- BPH
- hx Cataracts
- Carpal tunnel and hernia repair
- Cholecystectomy
- MONO on CKD (Cr baseline 1.3-14)
- 12 beat NSVT on 10/01
- PAF
-Acute postop blood loss anemia
-Acute postop respiratory failre-reintubated 10/01/25
-Acute post-op respiratory insufficiency
-Acute postop hypoxemia
-Acute postop hypovolemia and subsequent hypervolemia
-Acute postop Pseudomonas aeruginosa PNA
-Acute postop hypernatremia
-Acute postop hypokalemia
-Acute postop a-fib with RVR
-Acute postop Spontaneous bronchial artery bleed
-Acute postop diarrhea, likely from antibiotics, c.difficile negative
-Acute postop urinary retention, adler reinsertion night of 10/07
Discussed patient care with: Cardiology, Nursing, Respiratory Therapy, Pharmacy and Care Team
Subjective
-
Date of Service: October 08, 2025
Pt c/o being deconditioned, was a bit wiped out and lethargic from getting out bed to ambulate yesterday, but much more awake and conversant this AM
Objective Data
-
PT 17.6 Sec (11.4-14.6) H 10/01/25 03:36
INR 1.42 10/01/25 03:36
APTT 33.5 Sec (23.4-35.0) 10/01/25 03:36
Vital Signs
Vital Signs
Temp Pulse Resp BP Pulse Ox
98 F 84 16 102/54 97
10/08/25 03:00 10/08/25 03:00 10/08/25 03:00 10/08/25 01:39 10/08/25 03:00
CT Intake/Output/Weight
10/07/25 10/07/25 10/08/25
06:59 18:59 06:59
Intake Total 360 / 360
Output Total 750 / 2330 1050 / 2350 1300 / 2350
Balance -750 / -1365.0 -690 / -1989 -1299 /
SaO2: 97 (2L)
Physical Exam
-
General: Awake, Oriented, AOx3 ( a bit lethargic yesterday, but more awake this AM) and Other (a bit l)
Cardiovascular: Regular rate & rhythm, No Murmurs, No Rub and No Gallop
Respiratory: Decreased Breath Sounds (at bases, otherwise clear)
Sternum: Stable
Incision: Clean, Dry, Intact and Dressing Intact
Extremities: Edema +2
Data Reviewed
-
Lab Results: Results Reviewed
Medications: Active Meds Reviewed
Chest X-Ray: Report Reviewed and Image Reviewed
CT Scan: Report Reviewed and Image Reviewed
ECG: Report Reviewed and Image Reviewed
[2025-10-08 04:59] LABS: Hematocrit 28.8 % (39.0-52.0); Hemoglobin 9.2 g/dL (13.0-18.0); Mean Corp Hgb Conc. 31.9 g/dL (33.0-37.0); Mean Corpuscular Volume 96.6 fL (80.0-94.0); Platelet Count 132 10^3/uL (130-400); Red Cell Dist. Width 16.8 % (11.5-14.5)
[2025-10-08 05:11] LABS: Blood Urea Nitrogen 90 mg/dl (9-20); Calcium 8.6 mg/dl (8.4-10.2); Carbon Dioxide 31 mmol/L (22-30); Chloride 110 mmol/L (98-107); Estimated Creatinine Clearance 18 ml/min; Glucose 104 mg/dl (70-99); Magnesium 2.7 mg/dl (1.6-2.3); Potassium 4.2 mmol/L (3.5-5.1); Sodium 144 mmol/L (135-145); eGFR 20.11
--- NOTE | 2025-10-08 05:11 | PTCARENOTE ---
Patient loose/soft BM. Patient washed and cleaned w/ CHG wipes. Kee cleaned and gown changed. Patient more awake and responsive to verbal stimuli.
[2025-10-08 05:20] LABS: Prealbumin (Transthyretin) 12.3 mg/dl (17.6-36.0)
[2025-10-08] MEDS: TYLENOL PO (05:44)
[2025-10-08] MEDS: MUCOMYST 20% 2 ML INH (07:25)
[2025-10-08] MEDS: VENTOLIN NEBULES 2.5 MG INH (07:25)
[2025-10-08] MEDS: NEURONTIN PO (07:46)
--- NOTE | 2025-10-08 08:00 | PTCARENOTE ---
Patient received from maintenance supervisor 2nd shift RN; AAOx3, responds spontaneously to RN and follows commands; Drowsy; Flat affect and forgetful; VSS; SR with ST, PAC's, PVC's, and afib on monitor; +2 B/L UE and B/L LE edema; +1 DP and radial pulses; Shallow
respirations; Non-productive, occasional cough; SpO2 92-97% on RA; IS 1000 ml; Lungs with coarse rhonchi throughout; Diarrhea slowly improving - PRN Imodium given accordingly; Patient retaining - adler catheter in place draining clear, yellow urine;
Surgical incisions and pressure injury dressings intact; Right PICC line in place; See nursing documentation for further information
[2025-10-08] MEDS: LIDOCAINE 4% PATCH TOPICAL (08:19)
[2025-10-08] MEDS: CIPRO 500 MG PO (08:27)
[2025-10-08] MEDS: TOPROL XL 25 MG PO ×2 (08:27→19:40)
[2025-10-08] MEDS: IMODIUM 2 MG PO (08:27)
[2025-10-08] MEDS: PACERONE 200 MG PO ×3 (08:27→21:11)
[2025-10-08] MEDS: PROTONIX 40 MG PO (08:27)
[2025-10-08] MEDS: FLOMAX 0.4 MG PO (08:27)
[2025-10-08] MEDS: VISBIOME 1 CAP PO (08:27)
[2025-10-08] MEDS: TYLENOL 650 MG PO ×2 (11:38→17:49)
--- NOTE | 2025-10-08 12:35 | CM ---
Chart reviewed. Patient is independent of ADLS, lives with his in a [facility], 1 STH, 0 CHARLIE, ambulates with a RW and is current with [facility] VN. PT/OT evaluation recommending Acute. Plan is for the patient to go to [place]
when medically stable. CM to follow
--- NOTE | 2025-10-08 13:00 | PTCARENOTE ---
Patient able to take side steps with PT/OT in room; Patient transferred from bed to chair by Amna and able to stand x2 times with assist x2 and RW; Patient eating meals with encouragement from and resting comfortably in chair at this time
--- NOTE | 2025-10-08 14:37 | W.PN.CARDCBS ---
Addendum entered and electronically signed by Ridge Donohue DO 10/09/25 08:43:
I saw and examined the patient 10/08/2025.
The Steward/Stewardess Room's note was reviewed and I agree with the note.
Comment:
Plan:
Cont post op care
Diuretics held, consider nephrology eval with rising cr and potential need for diuresis
Remains sinus, currently not an anticoagulation candidate given recurrent bleeding, eventual consideration for diuresis once ok with CT surgery
Cont Amio
Cont beta celestina
Discussed with family at bedside.
Original Note:
Today's Communication / Plan
-
continue post op care
holding diuretics. consider nephro eval
follow rhythm. continue po amio/BB
Impression / Plan
-
Primary assistant manager of operations: Dr. Paez of [facility] [place]
Impression:
Near syncope, hypotension with Hemorrhagic shock
s/p multiple chest reexplorations Sep 30 2025
Delayed post CABG bleeding, source determined to be spontaneous bronchial artery
Left hemothorax status post chest tube
Posterior pericardial effusion with contrast extravasation with concern delayed bleeding graft bleeding not demonstrated via urgent cardiac catheterization
NSVT, ventricular bigeminy
Postop anemia with acute blood loss requiring multiple transfusions
Paroxysmal atrial fibrillation
Elective CABG x 4 [VASQUEZ�LAD, SVG�PDA, SVG�DX�OM] with placement of a 5.5 Impella 09/17/[address] Cartagena
Ischemic cardiomyopathy with preoperative ejection fraction 15 to 20% and postoperative ejection fraction 40%
History of BPH with postoperative urinary retention requiring Kee catheter
Hypertension
Hyperlipidemia
SYDNI
Polycythemia vera
CLL with chronic thrombocytopenia
Spinal stenosis
GERD
Depression/anxiety
Echo Sep 23 2025: EF 40-45% no significant valve disease
Urgent bedside echo very limited Sep 29 2025 as below
Urgent left cath Sep 29 2025: Widely patent grafts with no obvious source of bleeding.
Plan:
-80-year-old gentleman status post recent CABG with Impella on September 17, 2025 who presented back critically ill with hemorrhagic shock with CT placement in ER for hemothorax underwent multiple surgeries 09/30 ultimately resulting in anterolateral
thoracotomy, ligation of arterial vessel
-continues to slowly improve
-Cr up to 3.0. holding diuretics today. would consider nephrology evaluation
-per surgical team, given bleeding and need for reoperation difficult decision regarding oral anticoagulation. At this time, per CT surgery, no oral anticoagulation or antiplatelet agents. if OAC felt to be option in future, would consider
monotherapy with eliquis 2.5mg BID
-Currently in sinus rhythm but having paroxysms of rate controlled atrial fibrillation. Back on amiodarone 200mg TID and toprol 25mg BID. follow QTc by EKG
-Chest x-ray 10/04/2025 shows new patchy airspace in right upper lobe likely atelectasis. Sputum culture grew Pseudomonas aeruginosa. Started cefepime by CTS 10/04/2025 and transitioned to Ciprofloxacin to continue until 10/17
-continue post op care
-likely will need acute rehab when ready for discharge
-d/w nursing, CT surg HR LEADER. d/w patient and at bedside
HPI: I had the pleasure to meet Eyad Hackett along with his Harriet in ER bed 17 for evaluation of hypotension and several episodes of near syncope with falls and shortness of breath status post recent CABG x [address] Cartagena on September 17, 2025.
He is followed by Dr. Paez with [facility]. Reg has a history of ischemic cardiomyopathy with an ejection fraction 15% and known multivessel coronary artery disease who had a recent positive stress test and subsequent left heart catheterization
demonstrating multivessel coronary disease referred for CABG. Additionally, he has a history of hypertension, hyperlipidemia, BPH with urinary retention, CLL with chronic thrombocytopenia, and sleep apnea.
.
He was admitted electively September 15, 2025 and placed on a dobutamine drip and underwent diuresis for optimization prior to elective CABG x 4 [VASQUEZ�LAD, SVG�PDA, SVG�DX�OM] with placement of a 5.5 Impella 09/17/[address] Cartagena; impella was removed
on September 19. A repeat echocardiogram on dobutamine reported an improved ejection fraction around 40%. Postoperative course was complicated by hypotension, acute on chronic renal insufficiency and urinary retention. He was weaned off inotropes,
pressors and midodrine prior to discharge home on September 24. His hospital course was complicated by urinary retention and he was discharged home with a Kee catheter. His discharge medications include aspirin 81 mg daily, Plavix 75 mg daily,
metoprolol succinate 12.5 mg twice daily, Bumex 2 mg daily, Jardiance 10 mg daily.
.
Patient and his states that he has been feeling fine since discharge until this morning. Following breakfast fell felt like he had to go to the bathroom and have a bowel movement however on his way to the restroom with the assistance of his
he became extremely shaky and weak. She was able to get him to the bathroom where he fell to his knees. She denies loss of consciousness or head trauma. He ultimately never had a bowel movement. He had 3 more near-syncopal events with
profound weakness and increasing shortness of breath prompting return to the emergency department. He denies chest pain or pressure. He denies fevers or chills. He denies chest wall or head trauma with falls. In the emergency department he was
noted to be hypotensive with initial blood pressures reportedly 60s and 70s systolic which responded initially to IV fluids. Initial chest x-ray showed widened mediastinum and globular heart with elevated left hemidiaphragm and a new large opacity
in the left hemithorax. Initial twelve-lead EKG was sinus rhythm with PACs and an incomplete left bundle branch block with ST-T wave abnormalities in the inferior lateral leads with prolonged QT at 500 ms not significantly changed from prior study.
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 Initial hemoglobin 8.6, hemoglobin 8.9 on day of discharge September 24. Platelets 357. Sodium 136, potassium 3.4. BUN and creatinine 23/1.4. Creatinine was 1.2
on day of discharge. I within normal limits. Cardiac troponin 0.065. proBNP 4700. Procalcitonin less than 0.05. Lactate 2.
.
Patient was seen and examined with Dr. Cartagena and CT surgery PA as well as ER physician Dr. Nash. Stat CTA of the chest demonstrated new large left pleural effusion and tiny right pleural effusion. There was a pericardial effusion posteriorly
which demonstrated contrast extravasation and pooling raising concern for delayed bleeding from one of the grafts. A chest tube was placed by CT surgery in the emergency room with significant bloody drainage, totaling 2.7 L following urgent cardiac
catheterization. Patient was transported to cardiac cath where he was electively intubated with anesthesia. Interventional cardiology performed emergent coronary angiography and arteriogram with no obvious extravastion identified in grafts or at
site of Impella graft. He was then transported to the CVICU for close monitoring on Levophed having received 3 units packed red blood cells.
Progress Note - Straightener Hand
Subjective
Date of Service: October 08, 2025
no complaints
Objective
Labs:
10/08/25 04:33
10/08/25 04:33
Labs
Hgb 9.2 g/dL (13.0-18.0) L 10/08/25 04:33
Hct 28.8 % (39.0-52.0) L 10/08/25 04:33
Plt Count 132 10^3/uL (130-400) 10/08/25 04:33
PT 17.6 Sec (11.4-14.6) H 10/01/25 03:36
INR 1.42 10/01/25 03:36
APTT 33.5 Sec (23.4-35.0) 10/01/25 03:36
Sodium 144 mmol/L (135-145) 10/08/25 04:33
Potassium 4.2 mmol/L (3.5-5.1) 10/08/25 04:33
BUN 90 mg/dl (9-20) H 10/08/25 04:33
Creatinine 3.0 mg/dL (0.7-1.3) H 10/08/25 04:33
Glucose 104 mg/dl (70-99) H 10/08/25 04:33
Vital Signs and I&O:
Vital Signs
Temp Pulse Resp BP Pulse Ox
97.9 F 91 20 120/62 95
10/08/25 11:35 10/08/25 14:30 10/08/25 11:35 10/08/25 11:31 10/08/25 12:50
Vital Signs
Temp Pulse Resp BP Pulse Ox
97.9 F 91 20 120/62 95
10/08/25 11:35 10/08/25 14:30 10/08/25 11:35 10/08/25 11:31 10/08/25 12:50
Intake & Output
10/06/25 10/07/25 10/08/25 10/09/25
07:59 07:59 07:59 07:59
Intake Total 647.7 / 955.2 965.0 / 965.0 360 / 360 840 / 840
Output Total 2695 / 2795 2270 / 2270 2650 / 2650 775 / 775
Balance -2047.3 / -1839.8 -1305.0 / -1305.0 -2290 / -2290 65 / 65
Physical Exam
Physical Exam
GEN: No distress, awake, alert, oriented x3. sitting in chair. leaning to R
HEENT: supple, anicteric, mmm, eomi
LUNGS: CTA B/L anterolaterally, no wheezes
CV: Reg, S1/S2, no murmur
ABD: soft, BS+, NT/ND
EXT: No cyanosis, clubbing. 1+ edema of B/L UE. LUE in JUAN stocking
NEURO: Gross non-focal
SKIN: Warm, pink, dry. No rash
[2025-10-08] MEDS: MUCOMYST 20% INH (16:05)
--- NOTE | 2025-10-08 18:29 | PTCARENOTE ---
Patient's left pleural chest tube dressing soaked with copious amount of serosanguineous drainage - replaced with vaseline gauze, 4x4, and tegaderm; Patient able to stand multiple times this afternoon with assist x2 and RW; Patient resting
comfortably in bed at this time
[2025-10-08] MEDS: REMOVE LIDOCAINE PATCH 1 PATCH REMOVE (19:40)
[2025-10-08] MEDS: NEURONTIN 300 MG PO (19:40)
--- NOTE | 2025-10-08 20:00 | PTCARENOTE ---
report received from previous RN, walking rounds done. pt in bed, AAOx4. pt denies any pain at this time. VSS. SR/ST w PAC's, PVC's, and AFIB on monitor, HR 80s-100s. +2 B/L UE and B/L LE edema. +peripheral pulses. bilateral breath sounds present.
POX 93% on room air. IS encouraged. bowel sounds present. adler catheter in place draining clear, yellow urine. all surgical sites stable. RUE PICC line in place and patent. turning/repositioning pt Q2H and as needed. see worklist for full
assessment, VS, and interventions.
[2025-10-08] MEDS: KCL ELIXIR 20 MEQ PO (21:10)
[2025-10-08] MEDS: LIPITOR 40 MG PO (21:10)
[2025-10-08] MEDS: PROSCAR 5 MG PO (21:11)
[2025-10-09] VITALS (11 sets, daily range): BP systolic 95–132; BP diastolic 55–70; PULSE 79–97; O2SAT 93; BMI 26.8
--- NOTE | 2025-10-09 00:43 | W.PN.CT ---
Today's Communication / Plan
-
Plan:
-No major issues overnight. Hemodynamically and neurologically intact
-Weaned off Dobutamine gtt on 10/04. Bumex drip d/c'd on 10/05
-Has been in and out a-fib with RVR postop, currently in NSR, Amiodarone gtt d/c'd on 10/05. Remains on PO Amiodarone and Toprol XL
-Tolerating increased Toprol XL to 25 mg BID
-Holding ASA, Plavix, Eliquis given recent bleed
-D/C'd remaining pleural chest tube on 10/06. F/U CXR
-Postop acute urinary retention, straight cathed during the day on 10/07 and had retention the night of 10/07 (scanned for > 700 mL) necessitating adler reinsertion. 24hrs u/o 1910 mL
-Postop hypokalemia, will replete K
-Postop hypernatremia, has resolved with d5w
-Held diuresis yesterday, will resume today
-Postop diarrhea subsiding. C. difficile negative. On probiotics and immodium. Senokot and magnesium are on hold
-Cefepime switched to Ciprofloxacin for PNA, to continue until 10/17 per Pulm/color control supervisor
-Wean O2 as tolerated, currently on RA
-OOB into chair/Ambulate
-PT/OT following and recommend eventual acute rehab placement
Assessment / Plan
-
- Delayed hemorrhage 12 days post cardiac surgery- s/p Redo sternotomy; Washout and evacuation of approximately 1.5 L of clot from the left chest; Ligation of mammary vein and distal mammary stump; Ligation of large vein towards the neck; Thorough
evaluation of all bypass grafts by Dr Cartagena on 09/30/25 at 2:30am
- Recurrent hemorrhage with hemodynamic instability- s/p Reexploration of chest, redo sternotomy, evacuation of large clot between the left lower lobe and the pericardium the left side, inspection of all surgical sites which were all hemostatic,
packed with hemostatic agent, repair of chest wall, left lateral thoracotomy connected to the sternotomy incision for visualization, thoracotomy repair by Dr. Cartagena on 09/30/25 at 4:45 pm
- Continued hemorrhage - s/p angiogram of thoracic aorta and L bronchial artery by IR, Dr. Andrade. Findings at angio suspicious for small volume contrast extravasation distal branch L bronchial artery. Secondary to size and tortuosity of the aorta,
diminutive caliber and tortuosity of L bronchial artery, attempts to advance a microcatheter into the L bronchial artery for embolization were unsuccessful. No immediate procedural complications.
s/p Anterior lateral thoracotomy, ligation of arterial vessel, cautery of raw surface and lung tissue for hemostasis, multiple rounds of packing and serial evaluations of all quadrants, application of topical hemostatic agents, reapproximated ribs
and closure thoracotomy by Dr. Cartagena on 09/30/25 at 10:47 pm, POD#9
Source of bleed was noted to be: Spontaneous bronchial artery
- S/p Recent CABG x 4 surgery with planned Impella 5.5 support on 09/17/25 and discharged home with VN on 09/24/25
- Admitted 09/29/25 with dizziness and near syncope- Delayed post-CABG bleeding /Hemorrhagic shock, acute blood loss anemia
- Ischemic cardiomyopathy with EF of 35%
- Significant pleural effusion with respiratory failure
- Chronic lymphocytic leukemia with chronically elevated white count and thrombocytopenia
- Thrombocytopenia
- Multivessel coronary artery disease- hx PCI with stent
- Chronic systolic CHF with reduced EF
- HTN/HLD
- BPH
- hx Cataracts
- Carpal tunnel and hernia repair
- Cholecystectomy
- MONO on CKD (Cr baseline 1.3-14)
- 12 beat NSVT on 10/01
- PAF
-Acute postop blood loss anemia
-Acute postop respiratory failre-reintubated 10/01/25
-Acute post-op respiratory insufficiency
-Acute postop hypoxemia
-Acute postop hypovolemia and subsequent hypervolemia
-Acute postop Pseudomonas aeruginosa PNA
-Acute postop hypernatremia
-Acute postop hypokalemia
-Acute postop a-fib with RVR
-Acute postop Spontaneous bronchial artery bleed
-Acute postop diarrhea, likely from antibiotics, c.difficile negative
-Acute postop urinary retention, adler reinsertion night of 10/07
Discussed patient care with: Cardiology, Nursing, Respiratory Therapy, Pharmacy and Care Team
Subjective
-
Date of Service: October 09, 2025
Pt c/o mild incisional pain and being deconditioned
Objective Data
-
PT 17.6 Sec (11.4-14.6) H 10/01/25 03:36
INR 1.42 10/01/25 03:36
APTT 33.5 Sec (23.4-35.0) 10/01/25 03:36
Vital Signs
Vital Signs
Temp Pulse Resp BP Pulse Ox
98.0 F 79 18 106/63 93
10/08/25 19:47 10/08/25 20:00 10/08/25 19:47 10/08/25 19:47 10/08/25 20:00
CT Intake/Output/Weight
10/08/25 10/08/25 10/09/25
06:59 18:59 06:59
Intake Total 1240 / 1240
Output Total 1600 / 2650 1060 / 1180 120 / 1180
Balance -1600 / -2290 180 / 60 -120 / 60
SaO2: 93 (RA)
Physical Exam
-
General: Awake, Oriented and AOx3
Cardiovascular: Regular rate & rhythm, No Murmurs, No Rub and No Gallop
Respiratory: Decreased Breath Sounds (at bases, otherwise clear)
Sternum: Stable
Incision: Clean, Dry, Intact and Dressing Intact
Extremities: Edema +2
Data Reviewed
-
Lab Results: Results Reviewed
Medications: Active Meds Reviewed
Chest X-Ray: Report Reviewed and Image Reviewed
ECG: Report Reviewed and Image Reviewed
[2025-10-09] MEDS: TYLENOL PO ×3 (03:38→17:28)
[2025-10-09] MEDS: TYLENOL 650 MG PO (05:06)
--- NOTE | 2025-10-09 05:15 | PTCARENOTE ---
no changes in assessment, VSS. SR w PACs, PVCs, AFIB. HR 80s. POX 92% on room air. AM labs drawn and sent.
[2025-10-09 05:42] LABS: Hematocrit 29.0 % (39.0-52.0); Hemoglobin 9.2 g/dL (13.0-18.0); Mean Corp Hgb Conc. 31.7 g/dL (33.0-37.0); Mean Corpuscular Volume 95.7 fL (80.0-94.0); Platelet Count 141 10^3/uL (130-400); Red Cell Dist. Width 16.3 % (11.5-14.5)
[2025-10-09 06:07] LABS: Blood Urea Nitrogen 87 mg/dl (9-20); Calcium 8.5 mg/dl (8.4-10.2); Carbon Dioxide 31 mmol/L (22-30); Chloride 110 mmol/L (98-107); Estimated Creatinine Clearance 21 ml/min; Glucose 103 mg/dl (70-99); Magnesium 2.7 mg/dl (1.6-2.3); Potassium 3.0 mmol/L (3.5-5.1); Sodium 144 mmol/L (135-145); eGFR 23.87
[2025-10-09] MEDS: KCL 100 IV ×2 (06:20→13:48)
--- NOTE | 2025-10-09 08:45 | PTCARENOTE ---
Assumed care of patient. Walking rounds completed with previous RN. Pt assessed while he was sitting in the chair. Pt alert and oriented x4. Denies pain, shortness of breath, and nausea. Weak throughout. SR with frequent PACs and PVCs on tele with
rates in the 80s. BP 108/59. Bilateral radial pulses palpable. Bilateral DP pulses weakly palpable. +1 lower extremity edema noted. POX 93% on RA. Lungs diminished in the bases. IS encouraged-750mL achieved. Abdomen soft, round, nontender.
Tolerating diet. +BS. Kee catheter intact draining adequate amounts of clear yellow urine. Sternal incision covered with Aquacel, Left chest incision covered with Aquacel-CDI. Old chest tube sites covered, CDI. Old right groin and b/l leg
incisions scabbed. Right upper arm PICC intact. See MAR for medication administration. See worklist for complete nursing assessment. Plan of care reviewed and patient in agreement.
[2025-10-09] MEDS: FLOMAX 0.4 MG PO (08:57)
[2025-10-09] MEDS: TOPROL XL 25 MG PO ×2 (08:57→20:36)
[2025-10-09] MEDS: VISBIOME 1 CAP PO (08:57)
[2025-10-09] MEDS: CIPRO 500 MG PO (08:57)
[2025-10-09] MEDS: PACERONE 200 MG PO ×3 (08:57→20:37)
[2025-10-09] MEDS: NEURONTIN 300 MG PO ×2 (08:58→20:37)
[2025-10-09] MEDS: PROTONIX 40 MG PO (08:58)
[2025-10-09] MEDS: LIDOCAINE 4% PATCH TOPICAL (08:58)
--- NOTE | 2025-10-09 11:00 | CM ---
Chart reviewed. Patient OOB sitting in the chair. Prior to admission patient is independent of ADLS, lives with his in a [facility], 1 STH, 0 CHARLIE, ambulates with a RW. PT evaluation recommending acute rehab. Plan is for the
patient to go to [place] when medically stable. CM to follow
--- NOTE | 2025-10-09 11:38 | PTCARENOTE ---
Pt reassessed. Pt worked with PT/OT, visualized Stg 3 to sacrum, cream and foam dressing applied. SR with PAC and PVCs with rates in the 80s. BP 97/70. POX 93% on RA. Pt denies pain. No acute changes.
[2025-10-09 12:47] LABS: Blood Urea Nitrogen 88 mg/dl (9-20); Calcium 8.7 mg/dl (8.4-10.2); Carbon Dioxide 30 mmol/L (22-30); Chloride 110 mmol/L (98-107); Estimated Creatinine Clearance 22 ml/min; Glucose 96 mg/dl (70-99); Potassium 3.6 mmol/L (3.5-5.1); Sodium 143 mmol/L (135-145); eGFR 25.02
--- NOTE | 2025-10-09 13:58 | WOUNDNOTE ---
[facility] RN NOTE: Followed up with patient today for stage 2 PI to sacral /coccyx. The PI is friable and appears to be a deep dermal stage 2. Wound bed is clean, without slough. The use of Calazime and silicone border foam along with off-loading measures
continue to be appropriate. Patient was found in chair with air cushion with heels off-loaded. Patient reports that his appetite is improving. Update given to VARGHESE Corrales. Will continue to follow during in-patient stay.
--- NOTE | 2025-10-09 14:19 | W.PN.CARDCBS ---
Addendum entered and electronically signed by Amilcar Venegas MD 10/09/25 18:29:
Patient interviewed and examined, note below reviewed.
80-year-old man status post CABG September 17, readmitted for postop bleeding on 1116 for redo sternotomy and evacuation of 1.5 L clot from left chest with 2 reexploration's later that day ultimately with successful control of bleeding. Postop course
notable for paroxysmal A-fib and deconditioning. Chest tubes removed on October 06. Kee catheter in place for urinary retention. Now electrolyte abnormalities normalized.
At present he feels weak, is a heavy one-person assist to stand not yet walking. Denies specific complaints however.
107/59, pulse 79, head neck exam unremarkable, diminished breath sounds in bases and limited exam, incision intact, regular rate and rhythm without obvious murmurs JVD okay, not much edema
Hemoglobin 9.2, BUN and creatinine 88 and 2.5, Peak creatinine 3.0
Chest x-ray:Some blunting/atelectasis in bases, increased interstitial markings
Impression:
Near syncope, hypotension with Hemorrhagic shock
s/p multiple chest reexplorations Sep 30 2025
Delayed post CABG bleeding, source determined to be spontaneous bronchial artery
Left hemothorax status post chest tube
Posterior pericardial effusion with contrast extravasation with concern delayed bleeding graft bleeding not demonstrated via urgent cardiac catheterizationNSVT, ventricular bigeminy
Postop anemia with acute blood loss requiring multiple transfusions
Paroxysmal atrial fibrillation
Elective CABG x 4 [VASQUEZ�LAD, SVG�PDA, SVG�DX�OM] with placement of a 5.5 Impella 09/17/[address] Cartagena
Ischemic cardiomyopathy with preoperative ejection fraction 15 to 20% and postoperative ejection fraction 40%
History of BPH with postoperative urinary retention requiring Kee catheter
Hypertension
Hyperlipidemia
SYDNI
Polycythemia vera
CLL with chronic thrombocytopenia
Spinal stenosis
GERD
Depression/anxiety
Plan:
Creatinine is dropping, now 2.5
In sinus rhythm at the time of evaluation. On amiodarone.
Volume status seems reasonable, bumetanide is on hold.
No aspirin or anticoagulants at present.
Kee still in place for bladder outlet obstruction.
Hemoglobin is satisfactory, 9.2.
He is beginning physical therapy.
Overall he is making progress, continue supportive care.
Appreciate efforts of CT surgery.
Original Note:
Today's Communication / Plan
-
follow rhythm
follow Cr
continue post op care
Impression / Plan
-
Primary supervisor publications production: Dr. Paez of [facility] [place]
Impression:
Near syncope, hypotension with Hemorrhagic shock
s/p multiple chest reexplorations Sep 30 2025
Delayed post CABG bleeding, source determined to be spontaneous bronchial artery
Left hemothorax status post chest tube
Posterior pericardial effusion with contrast extravasation with concern delayed bleeding graft bleeding not demonstrated via urgent cardiac catheterization
NSVT, ventricular bigeminy
Postop anemia with acute blood loss requiring multiple transfusions
Paroxysmal atrial fibrillation
Elective CABG x 4 [VASQUEZ�LAD, SVG�PDA, SVG�DX�OM] with placement of a 5.5 Impella 09/17/[address] Cartagena
Ischemic cardiomyopathy with preoperative ejection fraction 15 to 20% and postoperative ejection fraction 40%
History of BPH with postoperative urinary retention requiring Kee catheter
Hypertension
Hyperlipidemia
SYDNI
Polycythemia vera
CLL with chronic thrombocytopenia
Spinal stenosis
GERD
Depression/anxiety
Echo Sep 23 2025: EF 40-45% no significant valve disease
Urgent bedside echo very limited Sep 29 2025 as below
Urgent left cath Sep 29 2025: Widely patent grafts with no obvious source of bleeding.
Plan:
-80-year-old gentleman status post recent CABG with Impella on September 17, 2025 who presented back critically ill with hemorrhagic shock with CT placement in ER for hemothorax underwent multiple surgeries 09/30 ultimately resulting in anterolateral
thoracotomy, ligation of arterial vessel
-progressing. appears brighter today
-Cr improving, 2.5 on 10/09 with diuretics on hold and continues to diurese if weights accurate
-per surgical team, given bleeding and need for reoperation difficult decision regarding oral anticoagulation. At this time, per CT surgery, no oral anticoagulation or antiplatelet agents. if OAC felt to be option in future, would consider
monotherapy with eliquis 2.5mg BID
-Currently in sinus rhythm but having paroxysms of rate controlled atrial fibrillation. Back on amiodarone 200mg TID and toprol 25mg BID. follow QTc, EKG ordered by me for 10/09
-Chest x-ray 10/04/2025 shows new patchy airspace in right upper lobe likely atelectasis. Sputum culture grew Pseudomonas aeruginosa. Started cefepime by CTS 10/04/2025 and transitioned to Ciprofloxacin to continue until 10/17
-continue post op care, rehab efforts, IS
-likely will need acute rehab when ready for discharge. family hoping for [place]
-d/w CT surg W[employer] PROC[employer] ASSISTANT [employer]. d/w patient and at bedside
HPI: I had the pleasure to meet Eyad Hackett along with his Harriet in ER bed 17 for evaluation of hypotension and several episodes of near syncope with falls and shortness of breath status post recent CABG x [address] Cartagena on September 17, 2025.
He is followed by Dr. Paez with [facility]. Reg has a history of ischemic cardiomyopathy with an ejection fraction 15% and known multivessel coronary artery disease who had a recent positive stress test and subsequent left heart catheterization
demonstrating multivessel coronary disease referred for CABG. Additionally, he has a history of hypertension, hyperlipidemia, BPH with urinary retention, CLL with chronic thrombocytopenia, and sleep apnea.
.
He was admitted electively September 15, 2025 and placed on a dobutamine drip and underwent diuresis for optimization prior to elective CABG x 4 [VASQUEZ�LAD, SVG�PDA, SVG�DX�OM] with placement of a 5.5 Impella 09/17/[address] Cartagena; impella was removed
on September 19. A repeat echocardiogram on dobutamine reported an improved ejection fraction around 40%. Postoperative course was complicated by hypotension, acute on chronic renal insufficiency and urinary retention. He was weaned off inotropes,
pressors and midodrine prior to discharge home on September 24. His hospital course was complicated by urinary retention and he was discharged home with a Kee catheter. His discharge medications include aspirin 81 mg daily, Plavix 75 mg daily,
metoprolol succinate 12.5 mg twice daily, Bumex 2 mg daily, Jardiance 10 mg daily.
.
Patient and his states that he has been feeling fine since discharge until this morning. Following breakfast fell felt like he had to go to the bathroom and have a bowel movement however on his way to the restroom with the assistance of his
he became extremely shaky and weak. She was able to get him to the bathroom where he fell to his knees. She denies loss of consciousness or head trauma. He ultimately never had a bowel movement. He had 3 more near-syncopal events with
profound weakness and increasing shortness of breath prompting return to the emergency department. He denies chest pain or pressure. He denies fevers or chills. He denies chest wall or head trauma with falls. In the emergency department he was
noted to be hypotensive with initial blood pressures reportedly 60s and 70s systolic which responded initially to IV fluids. Initial chest x-ray showed widened mediastinum and globular heart with elevated left hemidiaphragm and a new large opacity
in the left hemithorax. Initial twelve-lead EKG was sinus rhythm with PACs and an incomplete left bundle branch block with ST-T wave abnormalities in the inferior lateral leads with prolonged QT at 500 ms not significantly changed from prior study.
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 Initial hemoglobin 8.6, hemoglobin 8.9 on day of discharge September 24. Platelets 357. Sodium 136, potassium 3.4. BUN and creatinine 23/1.4. Creatinine was 1.2
on day of discharge. I within normal limits. Cardiac troponin 0.065. proBNP 4700. Procalcitonin less than 0.05. Lactate 2.
.
Patient was seen and examined with Dr. Cartagena and CT surgery PA as well as ER physician Dr. Nash. Stat CTA of the chest demonstrated new large left pleural effusion and tiny right pleural effusion. There was a pericardial effusion posteriorly
which demonstrated contrast extravasation and pooling raising concern for delayed bleeding from one of the grafts. A chest tube was placed by CT surgery in the emergency room with significant bloody drainage, totaling 2.7 L following urgent cardiac
catheterization. Patient was transported to cardiac cath where he was electively intubated with anesthesia. Interventional cardiology performed emergent coronary angiography and arteriogram with no obvious extravastion identified in grafts or at
site of Impella graft. He was then transported to the CVICU for close monitoring on Levophed having received 3 units packed red blood cells.
Progress Note - Rewrite Editor
Subjective
Date of Service: October 09, 2025
no complaints.
Objective
Labs:
10/09/25 05:16
10/09/25 11:20
Labs
Hgb 9.2 g/dL (13.0-18.0) L 10/09/25 05:16
Hct 29.0 % (39.0-52.0) L 10/09/25 05:16
Plt Count 141 10^3/uL (130-400) 10/09/25 05:16
PT 17.6 Sec (11.4-14.6) H 10/01/25 03:36
INR 1.42 10/01/25 03:36
APTT 33.5 Sec (23.4-35.0) 10/01/25 03:36
Sodium 143 mmol/L (135-145) 10/09/25 11:20
Potassium 3.6 mmol/L (3.5-5.1) 10/09/25 11:20
BUN 88 mg/dl (9-20) H 10/09/25 11:20
Creatinine 2.5 mg/dL (0.7-1.3) H 10/09/25 11:20
Glucose 96 mg/dl (70-99) 10/09/25 11:20
Vital Signs and I&O:
Vital Signs
Temp Pulse Resp BP Pulse Ox
97.5 F 82 16 97/70 93
10/09/25 11:37 10/09/25 14:00 10/09/25 11:37 10/09/25 11:37 10/09/25 11:37
Vital Signs
Temp Pulse Resp BP Pulse Ox
97.5 F 82 16 97/70 93
10/09/25 11:37 10/09/25 14:00 10/09/25 11:37 10/09/25 11:37 10/09/25 11:37
Intake & Output
10/07/25 10/08/25 10/09/25 10/10/25
07:59 07:59 07:59 07:59
Intake Total 965.0 / 965.0 360 / 360 1390 / 1390 340 / 340
Output Total 2270 / 2270 2650 / 2650 1910 / 1910 350 / 350
Balance -1305.0 / -1305.0 -2290 / -2290 -520 / -520 -10 / -10
Physical Exam
Physical Exam
GEN: No distress, awake, alert, oriented x3. sitting in chair.
HEENT: supple, anicteric, mmm, eomi
LUNGS: CTA B/L anterolaterally, no wheezes
CV: Reg, S1/S2, no murmur
ABD: soft, BS+, NT/ND
EXT: No cyanosis, clubbing. 1+ edema of B/L UE.
NEURO: Gross non-focal
SKIN: Warm, pink, dry. No rash
--- NOTE | 2025-10-09 15:54 | PTCARENOTE ---
Pt reassessed. Continues to sit in the chair, denies pain. endorses doing PT exercises with patient. SR with PAC and PVCs on tele, less frequent than previous assessment, rates in the 70s-80s. BP 107/59. POX 96% on RA. Old chest tube site
dressings changed. Kee draining adequate UO. No other acute changes.
--- NOTE | 2025-10-09 19:30 | PTCARENOTE ---
assumed care of patient @ 190. recieved pt laying in bed
Neuro- aox3. REGAN OTT. sleeping when undisturbed.
CV- SR with frequent pac/s pvcs, irregular rythym. weak pulses. +1 edema to arms and feet. BP stable
Lungs - Satting mid 90s on room air, clear throughout.
GI - good BS, having BMs
- adler present for acute retention draining clear yellow urine
Skin - All surgical insicsions CDI
Lines- R arm triple lumen picc patent
Pt resting comfortably in bed with call streeter within reach .
[2025-10-09] MEDS: LIPITOR 40 MG PO (20:36)
[2025-10-09] MEDS: REMOVE LIDOCAINE PATCH REMOVE (20:38)
[2025-10-09] MEDS: PROSCAR 5 MG PO (20:38)
[2025-10-10] VITALS (8 sets, daily range): BP systolic 97–137; BP diastolic 52–89; PULSE 3–95; O2SAT 94; BMI 27.3
--- NOTE | 2025-10-10 | PTCARENOTE ---
pt resting comfortably, no change in assessment .
[2025-10-10] MEDS: TYLENOL PO ×4 (01:03→17:11)
--- NOTE | 2025-10-10 01:30 | W.PN.CT ---
Addendum entered and electronically signed by Tray Resendez MD 10/10/25 08:38:
I saw and examined the patient.
The PA's note was reviewed and I agree with the note.
Comment:
POD#10 s/p return to OR for delayed hemorrhage 12 days postop. Redo sternotomy, L anterior thoracotomy, IR for attempted embolization of bleeding bronchial artery, L posterolateral thoracotomy.
No major overnight events.
N: Intact, pain controlled, OOB in chair
CV: HD stable - remains OFF dobutamine since 10/04. LVEF 40-45% on last echo (09/23). Only ASA currently. Currently in NSR (has had episodes of AF, but bleeding risk likely exceeds benefits of anticoagulation)
P: BAL w/ pseudomonas - No PTX, minor left-sided subcutaneous emphysema. - encourage IS/chest PT
GI: Tolerating PO. Check prealbumin qMonday (last 10/08 - 12.3). Add ensure, calorie count. +BM (minor diarrhea 2 days ago - resolved, C-diff negative)
: +Adler since 10/08 for urine retention, consult urology. Continue flomax, check repeat UA. Creat 2.0 (down from 2.5 yesterday, peak 3.0) - light diuresis today
HEME: Hgb 9.3 - stable, Plt 161
ID: Continue ciprofloxacin thru 10/17 for Pseudomonas and Klebsiella in BAL from 10/02; WBC 18.9 (down from 19.9), afebrile
ENDO: BS controlled
FEN: K replaced this AM (3.5)
PROPH: SCDs, chest PT, OOB/IS, PT/OT
DISPO: NESS in future
Original Note:
Today's Communication / Plan
-
-pod #10
-No major issues overnight. Hemodynamically and neurologically intact
-Weaned off Dobutamine gtt on 10/04. Bumex drip d/c'd on 10/05
-Chest US 10/08:Small RIGHT pleural effusion, too small for thoracentesis.
-Has been in and out a-fib with RVR postop, currently in NSR, Amiodarone gtt d/c'd on 10/05. Remains on PO Amiodarone and Toprol XL. -Holding ASA, Plavix, Eliquis given recent spontaneous bleed
-Tolerating increased Toprol XL to 25 mg BID
-D/C'd remaining pleural chest tube on 10/06.
-Postop acute urinary retention, straight cathed during the day on 10/07 and had retention the night of 10/07 (scanned for > 700 mL) necessitating adler reinsertion. 24hrs u/o 1910 mL
-Postop hypokalemia, will replete K
-Postop hypernatremia, has resolved with d5w
-Postop diarrhea subsiding. C. difficile negative. On probiotics and immodium. Senokot and magnesium are on hold
-Psudomonas and Klebsiella growing in bronchial lavage from 10/02. Cefepime switched to Ciprofloxacin for PNA, to continue until 10/17 (2 week course) per Pulm/husbandry technician
-Weaned off O2. pOx94 % on RA. Suspect SYDNI with brief desaturations down to 70s-80s during sleep
-OOB into chair/Ambulate
-PT/OT following and recommend eventual acute rehab placement
Assessment / Plan
-
- Delayed hemorrhage 12 days post cardiac surgery- s/p Redo sternotomy; Washout and evacuation of approximately 1.5 L of clot from the left chest; Ligation of mammary vein and distal mammary stump; Ligation of large vein towards the neck; Thorough
evaluation of all bypass grafts by Dr Cartagena on 09/30/25 at 2:30am
- Recurrent hemorrhage with hemodynamic instability- s/p Reexploration of chest, redo sternotomy, evacuation of large clot between the left lower lobe and the pericardium the left side, inspection of all surgical sites which were all hemostatic,
packed with hemostatic agent, repair of chest wall, left lateral thoracotomy connected to the sternotomy incision for visualization, thoracotomy repair by Dr. Cartagena on 09/30/25 at 4:45 pm
- Continued hemorrhage - s/p angiogram of thoracic aorta and L bronchial artery by IR, Dr. Andrade. Findings at angio suspicious for small volume contrast extravasation distal branch L bronchial artery. Secondary to size and tortuosity of the aorta,
diminutive caliber and tortuosity of L bronchial artery, attempts to advance a microcatheter into the L bronchial artery for embolization were unsuccessful. No immediate procedural complications.
s/p Anterior lateral thoracotomy, ligation of arterial vessel, cautery of raw surface and lung tissue for hemostasis, multiple rounds of packing and serial evaluations of all quadrants, application of topical hemostatic agents, reapproximated ribs
and closure thoracotomy by Dr. Cartagena on 09/30/25 at 10:47 pm, POD#10
Source of bleed was noted to be: Spontaneous bronchial artery
- S/p Recent CABG x 4 surgery with planned Impella 5.5 support on 09/17/25 and discharged home with VN on 09/24/25
- Admitted 09/29/25 with dizziness and near syncope- Delayed post-CABG bleeding /Hemorrhagic shock, acute blood loss anemia
- Ischemic cardiomyopathy with EF of 35%
- Significant pleural effusion with respiratory failure
- Chronic lymphocytic leukemia with chronically elevated white count and thrombocytopenia
- Thrombocytopenia
- Multivessel coronary artery disease- hx PCI with stent
- Chronic systolic CHF with reduced EF
- HTN/HLD
- BPH
- hx Cataracts
- Carpal tunnel and hernia repair
- Cholecystectomy
- MONO on CKD (Cr baseline 1.3-14)
- 12 beat NSVT on 10/01
- PAF
-Acute postop blood loss anemia
-Acute postop respiratory failre-reintubated 10/01/25
-Acute post-op respiratory insufficiency
-Acute postop hypoxemia
-Acute postop hypovolemia and subsequent hypervolemia
-Acute postop Pseudomonas aeruginosa PNA
-Acute postop hypernatremia
-Acute postop hypokalemia
-Acute postop a-fib with RVR
-Acute postop Spontaneous bronchial artery bleed
-Acute postop diarrhea, likely from antibiotics, c.difficile negative
-Acute postop urinary retention, adler reinsertion night of 10/07
-Acute postop deconditioning
Discussed patient care with: Nursing and Care Team
Subjective
-
Date of Service: October 10, 2025
Objective Data
-
PT 17.6 Sec (11.4-14.6) H 10/01/25 03:36
INR 1.42 10/01/25 03:36
APTT 33.5 Sec (23.4-35.0) 10/01/25 03:36
Vital Signs
Vital Signs
Temp Pulse Resp BP Pulse Ox
98.2 F 74 16 99/56 93
10/10/25 00:00 10/10/25 01:00 10/10/25 00:00 10/10/25 00:24 10/10/25 01:00
CT Intake/Output/Weight
10/09/25 10/09/25 10/10/25
06:59 18:59 06:59
Intake Total 150 / 1390 580 / 580
Output Total 850 / 1910 775 / 1175 400 / 1175
Balance -700 / -520 -195 / -595 -400 / -595
SaO2: 93
Physical Exam
-
General: Awake and AOx3
Cardiovascular: Regular rate & rhythm, No Murmurs and No Rub
Respiratory: Decreased Breath Sounds
Sternum: Stable
Incision: Clean, Dry and Dressing Intact
Extremities: Edema +1 (TEDs on b/l)
Abdomen: soft, nontender, nondistended, +bowel sounds
Data Reviewed
-
Lab Results: Results Reviewed
Medications: Active Meds Reviewed
Chest X-Ray: Report Reviewed and Image Reviewed
ECG: Report Reviewed and Image Reviewed
--- NOTE | 2025-10-10 04:00 | PTCARENOTE ---
labs drawn and sent , resting comfortably, no change in assessment .
[2025-10-10 04:49] LABS: Hematocrit 30.5 % (39.0-52.0); Hemoglobin 9.3 g/dL (13.0-18.0); Mean Corp Hgb Conc. 30.5 g/dL (33.0-37.0); Mean Corpuscular Volume 100.0 fL (80.0-94.0); Platelet Count 161 10^3/uL (130-400); Red Cell Dist. Width 16.1 % (11.5-14.5)
[2025-10-10 05:12] LABS: Blood Urea Nitrogen 78 mg/dl (9-20); Calcium 8.6 mg/dl (8.4-10.2); Carbon Dioxide 30 mmol/L (22-30); Chloride 112 mmol/L (98-107); Estimated Creatinine Clearance 28 ml/min; Glucose 90 mg/dl (70-99); Magnesium 2.6 mg/dl (1.6-2.3); Potassium 3.5 mmol/L (3.5-5.1); Sodium 143 mmol/L (135-145); eGFR 32.71
--- NOTE | 2025-10-10 05:36 | PTCARENOTE ---
pt stood to scale and to chair with max assist x3. pt weak with poor truncal control. now resting in chair with call streeter within reach .
[2025-10-10] MEDS: KCL 100 IV ×2 (06:25→20:43)
--- NOTE | 2025-10-10 07:51 | PTCARENOTE ---
Assumed care of patient from retail shift manager RN, AAO x 3, sitting up in the chair. Denies complaint. SR on monitor. Room air 95%. Abdomen obese, with positive bowel sounds. Kee intact. Pulses palpable. Plus 2 anasarca appreciated. JUAN
stockings in place. Plan for day discussed.
[2025-10-10] MEDS: VISBIOME 1 CAP PO (07:59)
[2025-10-10] MEDS: PACERONE 200 MG PO ×2 (07:59→20:07)
[2025-10-10] MEDS: FLOMAX 0.4 MG PO (07:59)
[2025-10-10] MEDS: NEURONTIN PO ×2 (07:59→20:07)
[2025-10-10] MEDS: PROTONIX 40 MG PO (07:59)
[2025-10-10] MEDS: TOPROL XL 25 MG PO ×2 (07:59→20:05)
[2025-10-10] MEDS: CIPRO 500 MG PO (07:59)
[2025-10-10] MEDS: LIDOCAINE 4% PATCH TOPICAL (08:00)
[2025-10-10] MEDS: LASIX 40 MG IV (08:26)
--- NOTE | 2025-10-10 10:07 | W.PN.CARDCBS ---
Today's Communication / Plan
-
Overall improving
Creat down to 2.0. Cont to hold diuresis for now
HG at 9.3 and stable. Cont to follow. No anticoag for now. consider adding anti-platelet soon
Cont Amiodarone and Toprol. In sinus today.
Impression / Plan
-
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 Paez of [facility] [place]
Impression:
Near syncope, hypotension with Hemorrhagic shock
s/p multiple chest reexplorations Sep 30 2025
Delayed post CABG bleeding, source determined to be spontaneous bronchial artery
Left hemothorax status post chest tube
Posterior pericardial effusion with contrast extravasation with concern delayed bleeding graft bleeding not demonstrated via urgent cardiac catheterization
NSVT, ventricular bigeminy
Postop anemia with acute blood loss requiring multiple transfusions
Paroxysmal atrial fibrillation
Elective CABG x 4 [VASQUEZ�LAD, SVG�PDA, SVG�DX�OM] with placement of a 5.5 Impella 09/17/[address] Cartagena
Ischemic cardiomyopathy with preoperative ejection fraction 15 to 20% and postoperative ejection fraction 40%
History of BPH with postoperative urinary retention requiring Kee catheter
Hypertension
Hyperlipidemia
SYDNI
Polycythemia vera
CLL with chronic thrombocytopenia
Spinal stenosis
GERD
Depression/anxiety
Echo Sep 23 2025: EF 40-45% no significant valve disease
Urgent bedside echo very limited Sep 29 2025 as below
Urgent left cath Sep 29 2025: Widely patent grafts with no obvious source of bleeding.
Plan:
-80-year-old gentleman status post recent CABG with Impella on September 17, 2025 who presented back critically ill with hemorrhagic shock with CT placement in ER for hemothorax underwent multiple surgeries 09/30 ultimately resulting in anterolateral
thoracotomy, ligation of arterial vessel
-progressing. appears brighter today
-Cr down to 2.0 and improving. Remains off diuretics. would consider restarting over next 24-48 hours
-per surgical team, given bleeding and need for reoperation difficult decision regarding oral anticoagulation. At this time, per CT surgery, no oral anticoagulation or antiplatelet agents. if OAC felt to be option in future, would consider
monotherapy with eliquis 2.5mg BID
-Currently in sinus rhythm but still with occ Afib. Back on amiodarone 200mg TID and toprol 25mg BID. QT stable 10/09
-Chest x-ray 10/04/2025 shows new patchy airspace in right upper lobe likely atelectasis. Sputum culture grew Pseudomonas aeruginosa. Started cefepime by CTS 10/04/2025 and transitioned to Ciprofloxacin to continue until 10/17
-continue post op care, rehab efforts, IS
-likely will need acute rehab when ready for discharge. family hoping for [facility]
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 d/w patient and at bedside
HPI: I had the pleasure to meet Eyad Hackett along with his Harriet in ER bed 17 for evaluation of hypotension and several episodes of near syncope with falls and shortness of breath status post recent CABG x [address] Cartagena on September 17, 2025.
He is followed by Dr. Paez with [facility]. Reg has a history of ischemic cardiomyopathy with an ejection fraction 15% and known multivessel coronary artery disease who had a recent positive stress test and subsequent left heart catheterization
demonstrating multivessel coronary disease referred for CABG. Additionally, he has a history of hypertension, hyperlipidemia, BPH with urinary retention, CLL with chronic thrombocytopenia, and sleep apnea.
.
He was admitted electively September 15, 2025 and placed on a dobutamine drip and underwent diuresis for optimization prior to elective CABG x 4 [VASQUEZ�LAD, SVG�PDA, SVG�DX�OM] with placement of a 5.5 Impella 09/17/[address] Cartagena; impella was removed
on September 19. A repeat echocardiogram on dobutamine reported an improved ejection fraction around 40%. Postoperative course was complicated by hypotension, acute on chronic renal insufficiency and urinary retention. He was weaned off inotropes,
pressors and midodrine prior to discharge home on September 24. His hospital course was complicated by urinary retention and he was discharged home with a Kee catheter. His discharge medications include aspirin 81 mg daily, Plavix 75 mg daily,
metoprolol succinate 12.5 mg twice daily, Bumex 2 mg daily, Jardiance 10 mg daily.
.
Patient and his states that he has been feeling fine since discharge until this morning. Following breakfast fell felt like he had to go to the bathroom and have a bowel movement however on his way to the restroom with the assistance of his
he became extremely shaky and weak. She was able to get him to the bathroom where he fell to his knees. She denies loss of consciousness or head trauma. He ultimately never had a bowel movement. He had 3 more near-syncopal events with
profound weakness and increasing shortness of breath prompting return to the emergency department. He denies chest pain or pressure. He denies fevers or chills. He denies chest wall or head trauma with falls. In the emergency department he was
noted to be hypotensive with initial blood pressures reportedly 60s and 70s systolic which responded initially to IV fluids. Initial chest x-ray showed widened mediastinum and globular heart with elevated left hemidiaphragm and a new large opacity
in the left hemithorax. Initial twelve-lead EKG was sinus rhythm with PACs and an incomplete left bundle branch block with ST-T wave abnormalities in the inferior lateral leads with prolonged QT at 500 ms not significantly changed from prior study.
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 Initial hemoglobin 8.6, hemoglobin 8.9 on day of discharge September 24. Platelets 357. Sodium 136, potassium 3.4. BUN and creatinine 23/1.4. Creatinine was 1.2
on day of discharge. I within normal limits. Cardiac troponin 0.065. proBNP 4700. Procalcitonin less than 0.05. Lactate 2.
.
Patient was seen and examined with Dr. Cartagena and CT surgery PA as well as ER physician Dr. Nash. Stat CTA of the chest demonstrated new large left pleural effusion and tiny right pleural effusion. There was a pericardial effusion posteriorly
which demonstrated contrast extravasation and pooling raising concern for delayed bleeding from one of the grafts. A chest tube was placed by CT surgery in the emergency room with significant bloody drainage, totaling 2.7 L following urgent cardiac
catheterization. Patient was transported to cardiac cath where he was electively intubated with anesthesia. Interventional cardiology performed emergent coronary angiography and arteriogram with no obvious extravastion identified in grafts or at
site of Impella graft. He was then transported to the CVICU for close monitoring on Levophed having received 3 units packed red blood cells.
Progress Note - Traffic Assistant
Subjective
Date of Service: October 10, 2025
slowly improving. Denies chest pains/sob
Objective
Labs:
10/10/25 04:21
10/10/25 04:21
Labs
Hgb 9.3 g/dL (13.0-18.0) L 10/10/25 04:21
Hct 30.5 % (39.0-52.0) L 10/10/25 04:21
Plt Count 161 10^3/uL (130-400) 10/10/25 04:21
PT 17.6 Sec (11.4-14.6) H 10/01/25 03:36
INR 1.42 10/01/25 03:36
APTT 33.5 Sec (23.4-35.0) 10/01/25 03:36
Sodium 143 mmol/L (135-145) 10/10/25 04:21
Potassium 3.5 mmol/L (3.5-5.1) 10/10/25 04:21
BUN 78 mg/dl (9-20) H 10/10/25 04:21
Creatinine 2.0 mg/dL (0.7-1.3) H 10/10/25 04:21
Glucose 90 mg/dl (70-99) 10/10/25 04:21
Vital Signs and I&O:
Vital Signs
Temp Pulse Resp BP Pulse Ox
98.7 F 79 22 117/67 95
10/10/25 07:49 10/10/25 09:00 10/10/25 07:49 10/10/25 07:45 10/10/25 07:49
Vital Signs
Temp Pulse Resp BP Pulse Ox
98.7 F 79 22 117/67 95
10/10/25 07:49 10/10/25 09:00 10/10/25 07:49 10/10/25 07:45 10/10/25 07:49
Intake & Output
10/08/25 10/09/25 10/10/25 10/11/25
06:59 06:59 06:59 06:59
Intake Total 360 / 360 1390 / 1390 580 / 580 307.5 / 307.5
Output Total 2650 / 2650 1910 / 1910 1525 / 1525 350 / 350
Balance -2290 / -2290 -520 / -520 -945 / -945 -42.5 / -42.5
Physical Exam
Physical Exam
GEN: No distress, awake, Ox3
HEENT: supple, anicteric, mmm
LUNGS: scatt rhonchi
CV: Reg, S1/S2, 1/6 syst LSB, no gallop
ABD: soft, BS+, NT/ND
EXT: No edema
NEURO: Gross non-focal
SKIN: sternotomy
--- NOTE | 2025-10-10 14:35 | PTCARENOTE ---
Diuresing without issue, adler cath removed, Male pure wick appplied. at bedside. VSS. No change in prior assessment
--- NOTE | 2025-10-10 15:12 | PTCARENOTE ---
Surgical Dressings on sternum Saturated with serosanguineous fluid. Dressing removed, CT PA in to assess. Cleaned with CHG and redressed. Lt lateral dressing dry, however when turned and dressing removed large amount of serous drainage pooled out
onto pad. New dressing applied.
[2025-10-10] MEDS: PACERONE PO (17:11)
--- NOTE | 2025-10-10 17:12 | PTCARENOTE ---
Very tired this afternoon. Sleeping, Pt bladder scanned at 1700 for 415 ml, pt does not want to try to void at this time and denies urge. Discussed with CT PA, Will recheck at 1800 and follow.
--- NOTE | 2025-10-10 18:38 | PTCARENOTE ---
Pt unable to void, re bladder scanned for 447 ml, Prior to inserting Kee cath Pt incontinent of large liquid BM. Cleaned up and turned and repositioned. #18 FR Kee inserted w/o difficulty. Resting in bed
--- NOTE | 2025-10-10 20:00 | PTCARENOTE ---
assumed care of patient @ 1900. received pt laying in bed
Neuro- aox3. REGAN OTT. sleeping when undisturbed.
CV- SR with frequent pac/s pvcs, irregular rythym. weak pulses. +1 edema to arms and feet. BP stable
Lungs - Satting mid 90s on room air, clear throughout.
GI - good BS, having BMs
- adler present for acute retention draining clear yellow urine
Skin - R later incision slightly open near the posterior portion, ctnp aware. draining serous fluid, dressing changed, gauze and ABD. Anterior chest tube dressing also draining, dressing changed.
Lines- R arm triple lumen picc patent
Pt resting comfortably in bed with call streeter within reach .
[2025-10-10] MEDS: LIPITOR 40 MG PO (20:07)
[2025-10-10] MEDS: PROSCAR 5 MG PO (20:07)
[2025-10-10] MEDS: REMOVE LIDOCAINE PATCH REMOVE (20:08)
[2025-10-10 20:20] LABS: Blood Urea Nitrogen 67 mg/dl (9-20); Calcium 8.4 mg/dl (8.4-10.2); Carbon Dioxide 29 mmol/L (22-30); Chloride 110 mmol/L (98-107); Estimated Creatinine Clearance 29 ml/min; Glucose 96 mg/dl (70-99); Magnesium 2.3 mg/dl (1.6-2.3); Potassium 3.2 mmol/L (3.5-5.1); Sodium 139 mmol/L (135-145); eGFR 34.79
[2025-10-11] VITALS (14 sets, daily range): BP systolic 94–132; BP diastolic 58–76; PULSE 73–85; O2SAT 97; BMI 27.9
--- NOTE | 2025-10-11 | PTCARENOTE ---
pt resting comfortably, no change in assessment .
--- NOTE | 2025-10-11 02:10 | W.PN.CT ---
Addendum entered and electronically signed by Tray Resendez MD 10/11/25 09:25:
UPDATE:
I was unaware of pt failing voiding trial yesterday.
Per RN, adler was removed yesterday AM, patient was unable to void, and adler was replaced on 10/10/25
Urology involved - via TIGER TEXT from 10/10 @ 1054AM:
'Yeah, doesn't need a formal inpatient consultation as it's really an outpatient issue. If he is retaining again with ambulating, would just replace 18Fr adler and see us in 1 week or so for a voiding trial'
Check UA today
Maintain adler
Addendum entered and electronically signed by Tray Resendez MD 10/11/25 09:03:
I saw and examined the patient.
The PA's note was reviewed and I agree with the note.
Comment:
POD#11
No major overnight events. CPAP overnight last night - did well. AVSS. Sinus. No gtts. No drains. UO: 700/1785, Creat 1.7. Neuro: intact
- Continue abx thru 10/17
- Check UA, continue flomax, (adler placed 10/08) - voiding trial today; D/C adler
- Light diuresis today
- OOB/IS/ambulate/PT/OT
- Will require acute rehab
-
Original Note:
Today's Communication / Plan
-
-pod #11
-no significant issues overnight
-in nsr with PACs, PVCs/bigeminy
-put on CPAP overnight for suspected SYDNI- no further O2 desaturation noted overnight
+BM overnight
-diuresed with 40 iv Lasix on 10/10. UO 700/1775 in 12/24 hrs
-repleted K - 40 iv x2 on 10/10. K today 3.7- ordered 40 po daily
-Cr is trending down - 1.7 today (peak 3.0 and 1.4 preop)
-failed weaning of Adler on 10/10- Per Urology (Dr. Schilling), Adler reinserted and will need outpatient follow-up
-follow serosang. drainage from chest wounds and reassess for possible [place]inee wound vac
-continue Cipro until 10/17 for Pseudomonas/Klebsielly pna
-Chest US 10/08: Small RIGHT pleural effusion, too small for thoracentesis.
-Has been in and out a-fib with RVR postop, currently in NSR, Amiodarone gtt d/c'd on 10/05. Remains on PO Amiodarone and Toprol XL 25 bid. -Holding ASA, Plavix, Eliquis given recent spontaneous bleed
-continue PT/OT
-plans for acute rehab when ready
Assessment / Plan
-
- Delayed hemorrhage 12 days post cardiac surgery- s/p Redo sternotomy; Washout and evacuation of approximately 1.5 L of clot from the left chest; Ligation of mammary vein and distal mammary stump; Ligation of large vein towards the neck; Thorough
evaluation of all bypass grafts by Dr Cartagena on 09/30/25 at 2:30am
- Recurrent hemorrhage with hemodynamic instability- s/p Reexploration of chest, redo sternotomy, evacuation of large clot between the left lower lobe and the pericardium the left side, inspection of all surgical sites which were all hemostatic,
packed with hemostatic agent, repair of chest wall, left lateral thoracotomy connected to the sternotomy incision for visualization, thoracotomy repair by Dr. Cartagena on 09/30/25 at 4:45 pm
- Continued hemorrhage - s/p angiogram of thoracic aorta and L bronchial artery by IR, Dr. Andrade. Findings at angio suspicious for small volume contrast extravasation distal branch L bronchial artery. Secondary to size and tortuosity of the aorta,
diminutive caliber and tortuosity of L bronchial artery, attempts to advance a microcatheter into the L bronchial artery for embolization were unsuccessful. No immediate procedural complications.
s/p Anterior lateral thoracotomy, ligation of arterial vessel, cautery of raw surface and lung tissue for hemostasis, multiple rounds of packing and serial evaluations of all quadrants, application of topical hemostatic agents, reapproximated ribs
and closure thoracotomy by Dr. Cartagena on 09/30/25 at 10:47 pm, POD#11
Source of bleed was noted to be: Spontaneous bronchial artery
- S/p Recent CABG x 4 surgery with planned Impella 5.5 support on 09/17/25 and discharged home with VN on 09/24/25
- Admitted 09/29/25 with dizziness and near syncope- Delayed post-CABG bleeding /Hemorrhagic shock, acute blood loss anemia
- Ischemic cardiomyopathy with EF of 35%
- Significant pleural effusion with respiratory failure
- Chronic lymphocytic leukemia with chronically elevated white count and thrombocytopenia
- Thrombocytopenia
- Multivessel coronary artery disease- hx PCI with stent
- Chronic systolic CHF with reduced EF
- HTN/HLD
- BPH
- hx Cataracts
- Carpal tunnel and hernia repair
- Cholecystectomy
- MONO on CKD (Cr baseline 1.3-14)
- 12 beat NSVT on 10/01
- PAF
-Acute postop blood loss anemia
-Acute postop respiratory failre-reintubated 10/01/25
-Acute post-op respiratory insufficiency
-Acute postop hypoxemia
-Acute postop hypovolemia and subsequent hypervolemia
-Acute postop Pseudomonas aeruginosa PNA
-Acute postop hypernatremia
-Acute postop hypokalemia
-Acute postop a-fib with RVR
-Acute postop Spontaneous bronchial artery bleed
-Acute postop diarrhea, likely from antibiotics, c.difficile negative
-Acute postop urinary retention, adler reinsertion night of 10/07
-Acute postop deconditioning
-Suspected SYDNI with O2 desaturation to mid 70s-80s during sleep - improved with CPAP
Discussed patient care with: Nursing and Care Team
Subjective
-
Date of Service: October 11, 2025
Objective Data
-
PT 17.6 Sec (11.4-14.6) H 10/01/25 03:36
INR 1.42 10/01/25 03:36
APTT 33.5 Sec (23.4-35.0) 10/01/25 03:36
Vital Signs
Vital Signs
Temp Pulse Resp BP Pulse Ox
98.4 F 72 16 137/89 95
10/10/25 20:00 10/10/25 22:00 10/10/25 20:00 10/10/25 20:07 10/10/25 20:00
CT Intake/Output/Weight
10/10/25 10/10/25 10/11/25
06:59 18:59 06:59
Intake Total 787.5 / 787.5
Output Total 750 / 1525 1075 / 1325 250 / 1325
Balance -750 / -945 -287.5 / -537.5 -250 / -537.5
SaO2: 95
Physical Exam
-
General: Awake and AOx3
Cardiovascular: Regular rate & rhythm, No Murmurs and No Rub
Respiratory: Decreased Breath Sounds b/l, more at bases b/l. No wheeze
Sternum: Stable
Incision: Clean, Dry and Dressing Intact
Abdomen: soft, nontender, nondistended, +bowel sounds
Extremities: Edema +1 (TEDs on b/l)
Data Reviewed
-
Lab Results: Results Reviewed
Medications: Active Meds Reviewed
Chest X-Ray: Report Reviewed and Image Reviewed
ECG: Report Reviewed and Image Reviewed
--- NOTE | 2025-10-11 04:00 | PTCARENOTE ---
pt resting comfortably, no change in assessment .
[2025-10-11 04:53] LABS: Hematocrit 29.2 % (39.0-52.0); Hemoglobin 9.3 g/dL (13.0-18.0); Mean Corp Hgb Conc. 31.8 g/dL (33.0-37.0); Mean Corpuscular Volume 96.1 fL (80.0-94.0); Platelet Count 152 10^3/uL (130-400); Red Cell Dist. Width 15.9 % (11.5-14.5)
[2025-10-11 05:15] LABS: Blood Urea Nitrogen 64 mg/dl (9-20); Calcium 8.5 mg/dl (8.4-10.2); Carbon Dioxide 30 mmol/L (22-30); Chloride 111 mmol/L (98-107); Estimated Creatinine Clearance 32 ml/min; Glucose 94 mg/dl (70-99); Potassium 3.7 mmol/L (3.5-5.1); Sodium 140 mmol/L (135-145); eGFR 39.75
--- NOTE | 2025-10-11 07:30 | PTCARENOTE ---
Assumed care of patient from night guard RN. SAVANNA x 3, In very good spirits this morning. SR w/ PAc's on monitor. Room air 95%. Using acapella independently. Abdomen soft and non tender. Appetite improving. Kee draining clear yellow urine.
Surgical sites with dressings c,d.i. Pulses palpable Plus 1 general anasarca appreciated. Plan for day discussed.
[2025-10-11] MEDS: TYLENOL PO ×5 (07:33→23:29)
[2025-10-11] MEDS: KLOR-CON 40 MEQ PO (08:09)
[2025-10-11] MEDS: NEURONTIN PO ×2 (08:10→20:21)
[2025-10-11] MEDS: CIPRO 500 MG PO (08:10)
[2025-10-11] MEDS: PACERONE 200 MG PO ×3 (08:10→22:03)
[2025-10-11] MEDS: VISBIOME 1 CAP PO (08:10)
[2025-10-11] MEDS: LIDOCAINE 4% PATCH TOPICAL (08:10)
[2025-10-11] MEDS: FLOMAX 0.4 MG PO (08:10)
[2025-10-11] MEDS: TOPROL XL 25 MG PO ×2 (08:10→20:30)
[2025-10-11] MEDS: PROTONIX 40 MG PO (08:10)
--- NOTE | 2025-10-11 09:01 | W.PN.CARDCBS ---
Today's Communication / Plan
-
Consider additional diuresis
Routine postoperative care per CT surgery
No anticoagulation/antiplatelet for now, defer to surgery in terms of timing
Continue Amio, beta-celestina remains in sinus
Impression / Plan
-
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 Paez of [facility] [place]
Impression:
Near syncope, hypotension with Hemorrhagic shock
s/p multiple chest reexplorations Sep 30 2025
Delayed post CABG bleeding, source determined to be spontaneous bronchial artery
Left hemothorax status post chest tube
Posterior pericardial effusion with contrast extravasation with concern delayed bleeding graft bleeding not demonstrated via urgent cardiac catheterization
NSVT, ventricular bigeminy
Postop anemia with acute blood loss requiring multiple transfusions
Paroxysmal atrial fibrillation
Elective CABG x 4 [VASQUEZ�LAD, SVG�PDA, SVG�DX�OM] with placement of a 5.5 Impella 09/17/[address] Cartagena
Ischemic cardiomyopathy with preoperative ejection fraction 15 to 20% and postoperative ejection fraction 40%
History of BPH with postoperative urinary retention requiring Kee catheter
Hypertension
Hyperlipidemia
SYDNI
Polycythemia vera
CLL with chronic thrombocytopenia
Spinal stenosis
GERD
Depression/anxiety
Echo Sep 23 2025: EF 40-45% no significant valve disease
Urgent bedside echo very limited Sep 29 2025 as below
Urgent left cath Sep 29 2025: Widely patent grafts with no obvious source of bleeding.
Plan:
-80-year-old gentleman status post recent CABG with Impella on September 17, 2025 who presented back critically ill with hemorrhagic shock with CT placement in ER for hemothorax underwent multiple surgeries 09/30 ultimately resulting in anterolateral
thoracotomy, ligation of arterial vessel
-Cr improving. Would consider resuming diuresis
-per surgical team, given bleeding and need for reoperation difficult decision regarding oral anticoagulation. At this time, per CT surgery, no oral anticoagulation or antiplatelet agents. if OAC felt to be option in future, would consider
monotherapy with eliquis 2.5mg BID
-Currently in sinus rhythm but still with occ Afib. Back on amiodarone 200mg TID and toprol 25mg BID. QT stable 10/09
-Chest x-ray 10/04/2025 shows new patchy airspace in right upper lobe likely atelectasis. Sputum culture grew Pseudomonas aeruginosa. Started cefepime by CTS 10/04/2025 and transitioned to Ciprofloxacin to continue until 10/17
-continue post op care, rehab efforts, IS
-likely will need acute rehab when ready for discharge. family hoping for [facility]
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 d/w patient
HPI: I had the pleasure to meet Eyad Hackett along with his Harriet in ER bed 17 for evaluation of hypotension and several episodes of near syncope with falls and shortness of breath status post recent CABG x [address] Cartagena on September 17, 2025.
He is followed by Dr. Paez with [facility]. Reg has a history of ischemic cardiomyopathy with an ejection fraction 15% and known multivessel coronary artery disease who had a recent positive stress test and subsequent left heart catheterization
demonstrating multivessel coronary disease referred for CABG. Additionally, he has a history of hypertension, hyperlipidemia, BPH with urinary retention, CLL with chronic thrombocytopenia, and sleep apnea.
.
He was admitted electively September 15, 2025 and placed on a dobutamine drip and underwent diuresis for optimization prior to elective CABG x 4 [VASQUEZ�LAD, SVG�PDA, SVG�DX�OM] with placement of a 5.5 Impella 09/17/[address] Cartagena; impella was removed
on September 19. A repeat echocardiogram on dobutamine reported an improved ejection fraction around 40%. Postoperative course was complicated by hypotension, acute on chronic renal insufficiency and urinary retention. He was weaned off inotropes,
pressors and midodrine prior to discharge home on September 24. His hospital course was complicated by urinary retention and he was discharged home with a Kee catheter. His discharge medications include aspirin 81 mg daily, Plavix 75 mg daily,
metoprolol succinate 12.5 mg twice daily, Bumex 2 mg daily, Jardiance 10 mg daily.
.
Patient and his states that he has been feeling fine since discharge until this morning. Following breakfast fell felt like he had to go to the bathroom and have a bowel movement however on his way to the restroom with the assistance of his
he became extremely shaky and weak. She was able to get him to the bathroom where he fell to his knees. She denies loss of consciousness or head trauma. He ultimately never had a bowel movement. He had 3 more near-syncopal events with
profound weakness and increasing shortness of breath prompting return to the emergency department. He denies chest pain or pressure. He denies fevers or chills. He denies chest wall or head trauma with falls. In the emergency department he was
noted to be hypotensive with initial blood pressures reportedly 60s and 70s systolic which responded initially to IV fluids. Initial chest x-ray showed widened mediastinum and globular heart with elevated left hemidiaphragm and a new large opacity
in the left hemithorax. Initial twelve-lead EKG was sinus rhythm with PACs and an incomplete left bundle branch block with ST-T wave abnormalities in the inferior lateral leads with prolonged QT at 500 ms not significantly changed from prior study.
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 Initial hemoglobin 8.6, hemoglobin 8.9 on day of discharge September 24. Platelets 357. Sodium 136, potassium 3.4. BUN and creatinine 23/1.4. Creatinine was 1.2
on day of discharge. I within normal limits. Cardiac troponin 0.065. proBNP 4700. Procalcitonin less than 0.05. Lactate 2.
.
Patient was seen and examined with Dr. Cartagena and CT surgery PA as well as ER physician Dr. Nash. Stat CTA of the chest demonstrated new large left pleural effusion and tiny right pleural effusion. There was a pericardial effusion posteriorly
which demonstrated contrast extravasation and pooling raising concern for delayed bleeding from one of the grafts. A chest tube was placed by CT surgery in the emergency room with significant bloody drainage, totaling 2.7 L following urgent cardiac
catheterization. Patient was transported to cardiac cath where he was electively intubated with anesthesia. Interventional cardiology performed emergent coronary angiography and arteriogram with no obvious extravastion identified in grafts or at
site of Impella graft. He was then transported to the CVICU for close monitoring on Levophed having received 3 units packed red blood cells.
Progress Note - [employer]
Subjective
Date of Service: October 11, 2025
Patient seen and examined this morning. No acute events overnight. Patient resting comfortably in chair. Reports mild incisional discomfort but overall no significant chest pain. Denies shortness of breath lightheadedness, dizziness or weakness.
Telemetry shows sinus rhythm. Patient -500 cc over 24 hours.
Objective
Labs:
10/11/25 04:30
10/11/25 04:30
Labs
Hgb 9.3 g/dL (13.0-18.0) L 10/11/25 04:30
Hct 29.2 % (39.0-52.0) L 10/11/25 04:30
Plt Count 152 10^3/uL (130-400) 10/11/25 04:30
PT 17.6 Sec (11.4-14.6) H 10/01/25 03:36
INR 1.42 10/01/25 03:36
APTT 33.5 Sec (23.4-35.0) 10/01/25 03:36
Sodium 140 mmol/L (135-145) 10/11/25 04:30
Potassium 3.7 mmol/L (3.5-5.1) 10/11/25 04:30
BUN 64 mg/dl (9-20) H 10/11/25 04:30
Creatinine 1.7 mg/dL (0.7-1.3) H 10/11/25 04:30
Glucose 94 mg/dl (70-99) 10/11/25 04:30
Vital Signs and I&O:
Vital Signs
Temp Pulse Resp BP Pulse Ox
98.2 F 86 20 119/65 95
10/11/25 07:50 10/11/25 07:50 10/11/25 07:50 10/11/25 07:23 10/11/25 07:50
Vital Signs
Temp Pulse Resp BP Pulse Ox
98.2 F 86 20 119/65 95
10/11/25 07:50 10/11/25 07:50 10/11/25 07:50 10/11/25 07:23 10/11/25 07:50
Intake & Output
10/09/25 10/10/25 10/11/25 10/12/25
06:59 06:59 06:59 06:59
Intake Total 1390 / 1390 580 / 580 1267.5 / 1267.5 240 / 240
Output Total 1910 / 1910 1525 / 1525 1775 / 1775 60 / 60
Balance -520 / -520 -945 / -945 -507.5 / -507.5 180 / 180
Physical Exam
Physical Exam
GEN: No distress, awake, Ox3
HEENT: supple, anicteric, mmm
LUNGS: scatt rhonchi
CV: Reg, S1/S2, 1/6 syst LSB, no gallop
ABD: soft, BS+, NT/ND
EXT: No edema
NEURO: Gross non-focal
SKIN: sternotomy
[2025-10-11 09:43] LABS: Urine Character Clear (Clear)
[2025-10-11] MEDS: LASIX 40 MG IV (09:57)
[2025-10-11] MEDS: KCL 40 MEQ PO (09:58)
[2025-10-11 10:08] LABS: Urine Urothelial Cell 0-2 /LPF (FEW)
[2025-10-11 10:10] LABS: Urine White Cell 26-30 /HPF (0-5)
--- NOTE | 2025-10-11 10:50 | PTCARENOTE ---
While working with PT/OT Chest dressing and gown became saturated with serous fluid. Dressing removed, CT team in to assess drainage. CT PA able to express large amount of serous fluid. Incision cleansed with Betadine and redressed. Will
monitor.
--- NOTE | 2025-10-11 11:48 | PTCARENOTE ---
Incontinent of moderate amount of loose brown BM. Stood and transfered to [facility] CHG wipe bath and adler care preformed. Sacral wound cleansed , moisture barrier applied and new foam dressing applied.
[2025-10-11] MEDS: IMODIUM 2 MG PO (14:57)
--- NOTE | 2025-10-11 15:22 | CM ---
PT recommending acute rehab, referral faxed to [facility] for [facility] tuesday dc.
--- NOTE | 2025-10-11 15:44 | PTCARENOTE ---
Pt incontinent of small amount brown liquid BM. Stood at bed and sat on BSC and given another CHG cloth bath. Chest dressing saturated again, Removed and redressed as per order. Linens and gown changed. VSS, emotional support provided.
Assessment otherwise unchanged from prior.
[2025-10-11] MEDS: REMOVE LIDOCAINE PATCH REMOVE (20:21)
--- NOTE | 2025-10-11 20:30 | PTCARENOTE ---
Patient received resting in bed watching movie. Patient A+A+Ox3. No neurological deficits noted. No c/o headache, dizziness or lightheadedness. Lateral Rotation Bed. Reposition q2hrs. Room air. SpO2 95%. Occasional cough. No c/o SOB. Chest
tube sites with dressing intact. Sinus Rhythm. Heart rate 70's. Blood pressure - Left upper extremity - cuff pressure 116/68 (82). Patient with no c/o chest pain, pressure or discomfort. Abdomen soft, nontender. Normoactive bowel sounds. No
BM. No c/o nausea. No vomiting. Kee catheter - Intact and patent - Light tk, yellow urine. Lower extremity edema. Positive pulses. Patient with no c/o back or flank pain. Skin protectant ointment to sacral, buttocks, scrotal regions.
Back rub. Dressings to sternum, left chest incisions and left anterolateral incision intact - No drainage or oozing noted. Right Basillic PICC T.L.C. intact. Assessment as documented.
[2025-10-11] MEDS: LIPITOR 40 MG PO (22:03)
[2025-10-11] MEDS: PROSCAR 5 MG PO (22:04)
--- NOTE | 2025-10-11 22:30 | PTCARENOTE ---
CPAP 5 - Room air. Respiratory therapist arrived and placed patient on CPAP. Patient now sleeping without difficulty. Assessment as documented.
[2025-10-12] VITALS (11 sets, daily range): BP systolic 93–144; BP diastolic 55–79; PULSE 80; BMI 27.5
--- NOTE | 2025-10-12 01:21 | W.PN.CT ---
Addendum entered and electronically signed by Tray Resendez MD 10/12/25 08:47:
I saw and examined the patient.
The PA's note was reviewed and I agree with the note.
Comment:
POD#12
No major overnight events.
UA: +LE, Nit neg, 4+ blood, many bacteria - f/u cultures, D/W ID any additional ABX, currently on cipro for pseudomonas and klebsiella in BAL (scheduled thru 10/17)
Creat 1.5 from 1.7 yesterday (peak was 3.0; baseline 1.4) - continue light diuresis
OOB/IS/ambulate/PT/OT
[facility] rehab on D/C
Original Note:
Today's Communication / Plan
-
-pod #12
-no significant issues overnight
-in nsr with PACs, PVCs
-seroma expelled and cleansed with Betadine on 10/11
-failed weaning of Adler on 10/10- Per Urology (Dr. Schilling), Adlre reinserted and will need outpatient follow-up in 1 week for voiding trial
-abnormal UA on 10/11. Urine cx pending. Pt is already on Cipro until 10/17 for Pseudomonas/Klebsiella pna
-CPAP for suspected SYDNI
-diuresed with 40 iv Lasix on 10/11. UO 700/2185in 12/24 hrs- continue Lasix
-K today 3.9- on 40 po KCL daily supplement
-Cr is trending down - 1.5 today (1.7 on 10/11, peak 3.0 and 1.4 preop)
-Chest US 10/08: Small RIGHT pleural effusion, too small for thoracentesis.
-Has been in and out a-fib with RVR postop, currently in NSR, Amiodarone gtt d/c'd on 10/05. Remains on PO Amiodarone and Toprol XL 25 bid. -Holding ASA, Plavix, Eliquis given recent spontaneous bleed
-continue PT/OT
-? d/c acute rehab on Tuesday if bed available
Assessment / Plan
-
- Delayed hemorrhage 12 days post cardiac surgery- s/p Redo sternotomy; Washout and evacuation of approximately 1.5 L of clot from the left chest; Ligation of mammary vein and distal mammary stump; Ligation of large vein towards the neck; Thorough
evaluation of all bypass grafts by Dr Cartagena on 09/30/25 at 2:30am
- Recurrent hemorrhage with hemodynamic instability- s/p Reexploration of chest, redo sternotomy, evacuation of large clot between the left lower lobe and the pericardium the left side, inspection of all surgical sites which were all hemostatic,
packed with hemostatic agent, repair of chest wall, left lateral thoracotomy connected to the sternotomy incision for visualization, thoracotomy repair by Dr. Cartagena on 09/30/25 at 4:45 pm
- Continued hemorrhage - s/p angiogram of thoracic aorta and L bronchial artery by IR, Dr. Andrade. Findings at angio suspicious for small volume contrast extravasation distal branch L bronchial artery. Secondary to size and tortuosity of the aorta,
diminutive caliber and tortuosity of L bronchial artery, attempts to advance a microcatheter into the L bronchial artery for embolization were unsuccessful. No immediate procedural complications.
s/p Anterior lateral thoracotomy, ligation of arterial vessel, cautery of raw surface and lung tissue for hemostasis, multiple rounds of packing and serial evaluations of all quadrants, application of topical hemostatic agents, reapproximated ribs
and closure thoracotomy by Dr. Cartagena on 09/30/25 at 10:47 pm, POD#12
Source of bleed was noted to be: Spontaneous bronchial artery
- S/p Recent CABG x 4 surgery with planned Impella 5.5 support on 09/17/25 and discharged home with VN on 09/24/25
- Admitted 09/29/25 with dizziness and near syncope- Delayed post-CABG bleeding /Hemorrhagic shock, acute blood loss anemia
- Ischemic cardiomyopathy with EF of 35%
- Significant pleural effusion with respiratory failure
- Chronic lymphocytic leukemia with chronically elevated white count and thrombocytopenia
- Thrombocytopenia
- Multivessel coronary artery disease- hx PCI with stent
- Chronic systolic CHF with reduced EF
- HTN/HLD
- BPH
- hx Cataracts
- Carpal tunnel and hernia repair
- Cholecystectomy
- MONO on CKD (Cr baseline 1.3-14)
- 12 beat NSVT on 10/01
- PAF
-Acute postop blood loss anemia
-Acute postop respiratory failre-reintubated 10/01/25
-Acute post-op respiratory insufficiency
-Acute postop hypoxemia
-Acute postop hypovolemia and subsequent hypervolemia
-Acute postop Pseudomonas aeruginosa PNA
-Acute postop hypernatremia
-Acute postop hypokalemia
-Acute postop a-fib with RVR
-Acute postop Spontaneous bronchial artery bleed
-Acute postop diarrhea, likely from antibiotics, c.difficile negative
-Acute postop urinary retention, adler reinsertion night of 10/07
-Acute postop deconditioning
-Suspected SYDNI with O2 desaturation to mid 70s-80s during sleep - improved with CPAP
Discussed patient care with: Nursing and Care Team
Subjective
-
Date of Service: October 12, 2025
Objective Data
-
PT 17.6 Sec (11.4-14.6) H 10/01/25 03:36
INR 1.42 10/01/25 03:36
APTT 33.5 Sec (23.4-35.0) 10/01/25 03:36
Vital Signs
Vital Signs
Temp Pulse Resp BP Pulse Ox
98.7 F 75 16 112/69 96
10/11/25 22:00 10/11/25 22:03 10/11/25 22:00 10/11/25 22:03 10/11/25 22:01
CT Intake/Output/Weight
10/11/25 10/11/25 10/12/25
06:59 18:59 06:59
Intake Total 480 / 1267.5 960 / 1200 240 / 1200
Output Total 700 / 1775 1485 / 1735 250 / 1735
Balance -220 / -507.5 -525 / -535 -10 / -535
SaO2: 96
Physical Exam
-
General: Awake and AOx3
Cardiovascular: Regular rate & rhythm, No Murmurs and No Rub
Respiratory: Decreased Breath Sounds b/l, more at bases b/l. No wheeze
Sternum: Stable
Incision: Clean, Dry and Dressing Intact
Abdomen: soft, nontender, nondistended, +bowel sounds
Extremities: Edema +1 (TEDs on b/l)
Data Reviewed
-
Lab Results: Results Reviewed
Medications: Active Meds Reviewed
Chest X-Ray: Report Reviewed and Image Reviewed
ECG: Report Reviewed and Image Reviewed
[2025-10-12 04:16] LABS: Hematocrit 28.6 % (39.0-52.0); Hemoglobin 9.2 g/dL (13.0-18.0); Mean Corp Hgb Conc. 32.2 g/dL (33.0-37.0); Mean Corpuscular Volume 95.7 fL (80.0-94.0); Platelet Count 200 10^3/uL (130-400); Red Cell Dist. Width 16.1 % (11.5-14.5)
[2025-10-12 04:27] LABS: Blood Urea Nitrogen 54 mg/dl (9-20); Calcium 8.3 mg/dl (8.4-10.2); Carbon Dioxide 30 mmol/L (22-30); Chloride 111 mmol/L (98-107); Estimated Creatinine Clearance 37 ml/min; Glucose 99 mg/dl (70-99); Magnesium 2.2 mg/dl (1.6-2.3); Potassium 3.9 mmol/L (3.5-5.1); Sodium 139 mmol/L (135-145); eGFR 46.19
--- NOTE | 2025-10-12 04:30 | PTCARENOTE ---
Patient A+A+Ox3. No neurological deficits noted. No c/o pain or discomfort. Patient given CHG bath and linens changed. Sternal and left chest incisions redressed - Minimal serous drainage. Left anterolateral incision - Area cleansed with
Betadine solution and redressed - Minimal serous drainage. Patient resting in bed. OOB in AM. Assessment/Interventions as documented.
[2025-10-12] MEDS: TYLENOL PO ×2 (06:00→23:15)
--- NOTE | 2025-10-12 08:08 | W.PN.CARDCBS ---
Today's Communication / Plan
-
Gentle IV diuresis
Routine postop care per CT surgery
Not on anticoagulation or antiplatelet for now, defer to surgery in terms of timing to resume these medications
Continue Amio, beta-celestina
Impression / Plan
-
Primary color finisher: Dr. Paez of [facility] [place]
Impression:
Near syncope, hypotension with Hemorrhagic shock
s/p multiple chest reexplorations Sep 30 2025
Delayed post CABG bleeding, source determined to be spontaneous bronchial artery
Left hemothorax status post chest tube
Posterior pericardial effusion with contrast extravasation with concern delayed bleeding graft bleeding not demonstrated via urgent cardiac catheterization
NSVT, ventricular bigeminy
Postop anemia with acute blood loss requiring multiple transfusions
Paroxysmal atrial fibrillation
Elective CABG x 4 [VASQUEZ�LAD, SVG�PDA, SVG�DX�OM] with placement of a 5.5 Impella 09/17/[address] Cartagena
Ischemic cardiomyopathy with preoperative ejection fraction 15 to 20% and postoperative ejection fraction 40%
History of BPH with postoperative urinary retention requiring Kee catheter
Hypertension
Hyperlipidemia
SYDNI
Polycythemia vera
CLL with chronic thrombocytopenia
Spinal stenosis
GERD
Depression/anxiety
Echo Sep 23 2025: EF 40-45% no significant valve disease
Urgent bedside echo very limited Sep 29 2025 as below
Urgent left cath Sep 29 2025: Widely patent grafts with no obvious source of bleeding.
Plan:
-80-year-old gentleman status post recent CABG with Impella on September 17, 2025 who presented back critically ill with hemorrhagic shock with CT placement in ER for hemothorax underwent multiple surgeries 09/30 ultimately resulting in anterolateral
thoracotomy, ligation of arterial vessel
-Cr improving. Would continue IV diuresis; overload on exam roughly 1.1 L output last 24 hours
-per surgical team, given bleeding and need for reoperation difficult decision regarding oral anticoagulation. At this time, per CT surgery, no oral anticoagulation or antiplatelet agents. if OAC felt to be option in future, would consider
monotherapy with eliquis 2.5mg BID
-Currently in sinus rhythm but still with occ Afib. Back on amiodarone 200mg TID and toprol 25mg BID. QT stable 10/09
-Chest x-ray 10/04/2025 shows new patchy airspace in right upper lobe likely atelectasis. Sputum culture grew Pseudomonas aeruginosa. Started cefepime by CTS 10/04/2025 and transitioned to Ciprofloxacin to continue until 10/17
-continue post op care, rehab efforts, IS
-likely will need acute rehab when ready for discharge. family hoping for [facility]
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 d/w patient
HPI: I had the pleasure to meet Eyad Hackett along with his Harriet in ER bed 17 for evaluation of hypotension and several episodes of near syncope with falls and shortness of breath status post recent CABG x [address] Cartagena on September 17, 2025.
He is followed by Dr. Paez with [facility]. Reg has a history of ischemic cardiomyopathy with an ejection fraction 15% and known multivessel coronary artery disease who had a recent positive stress test and subsequent left heart catheterization
demonstrating multivessel coronary disease referred for CABG. Additionally, he has a history of hypertension, hyperlipidemia, BPH with urinary retention, CLL with chronic thrombocytopenia, and sleep apnea.
.
He was admitted electively September 15, 2025 and placed on a dobutamine drip and underwent diuresis for optimization prior to elective CABG x 4 [VASQUEZ�LAD, SVG�PDA, SVG�DX�OM] with placement of a 5.5 Impella 09/17/[address] Cartagena; impella was removed
on September 19. A repeat echocardiogram on dobutamine reported an improved ejection fraction around 40%. Postoperative course was complicated by hypotension, acute on chronic renal insufficiency and urinary retention. He was weaned off inotropes,
pressors and midodrine prior to discharge home on September 24. His hospital course was complicated by urinary retention and he was discharged home with a Kee catheter. His discharge medications include aspirin 81 mg daily, Plavix 75 mg daily,
metoprolol succinate 12.5 mg twice daily, Bumex 2 mg daily, Jardiance 10 mg daily.
.
Patient and his states that he has been feeling fine since discharge until this morning. Following breakfast fell felt like he had to go to the bathroom and have a bowel movement however on his way to the restroom with the assistance of his
he became extremely shaky and weak. She was able to get him to the bathroom where he fell to his knees. She denies loss of consciousness or head trauma. He ultimately never had a bowel movement. He had 3 more near-syncopal events with
profound weakness and increasing shortness of breath prompting return to the emergency department. He denies chest pain or pressure. He denies fevers or chills. He denies chest wall or head trauma with falls. In the emergency department he was
noted to be hypotensive with initial blood pressures reportedly 60s and 70s systolic which responded initially to IV fluids. Initial chest x-ray showed widened mediastinum and globular heart with elevated left hemidiaphragm and a new large opacity
in the left hemithorax. Initial twelve-lead EKG was sinus rhythm with PACs and an incomplete left bundle branch block with ST-T wave abnormalities in the inferior lateral leads with prolonged QT at 500 ms not significantly changed from prior study.
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 Initial hemoglobin 8.6, hemoglobin 8.9 on day of discharge September 24. Platelets 357. Sodium 136, potassium 3.4. BUN and creatinine 23/1.4. Creatinine was 1.2
on day of discharge. I within normal limits. Cardiac troponin 0.065. proBNP 4700. Procalcitonin less than 0.05. Lactate 2.
.
Patient was seen and examined with Dr. Cartagena and CT surgery PA as well as ER physician Dr. Nash. Stat CTA of the chest demonstrated new large left pleural effusion and tiny right pleural effusion. There was a pericardial effusion posteriorly
which demonstrated contrast extravasation and pooling raising concern for delayed bleeding from one of the grafts. A chest tube was placed by CT surgery in the emergency room with significant bloody drainage, totaling 2.7 L following urgent cardiac
catheterization. Patient was transported to cardiac cath where he was electively intubated with anesthesia. Interventional cardiology performed emergent coronary angiography and arteriogram with no obvious extravastion identified in grafts or at
site of Impella graft. He was then transported to the CVICU for close monitoring on Levophed having received 3 units packed red blood cells.
Progress Note - District Engineer
Subjective
Date of Service: October 12, 2025
Patient seen and examined this morning. No acute events overnight. Patient resting comfortably in chair enjoying breakfast. Denies chest pain, shortness of breath, palpitations, weakness. Still notes mild lower extremity edema
Objective
Labs:
10/12/25 03:42
10/12/25 03:42
Labs
Hgb 9.2 g/dL (13.0-18.0) L 10/12/25 03:42
Hct 28.6 % (39.0-52.0) L 10/12/25 03:42
Plt Count 200 10^3/uL (130-400) D 10/12/25 03:42
PT 17.6 Sec (11.4-14.6) H 10/01/25 03:36
INR 1.42 10/01/25 03:36
APTT 33.5 Sec (23.4-35.0) 10/01/25 03:36
Sodium 139 mmol/L (135-145) 10/12/25 03:42
Potassium 3.9 mmol/L (3.5-5.1) 10/12/25 03:42
BUN 54 mg/dl (9-20) H 10/12/25 03:42
Creatinine 1.5 mg/dL (0.7-1.3) H 10/12/25 03:42
Glucose 99 mg/dl (70-99) 10/12/25 03:42
Vital Signs and I&O:
Vital Signs
Temp Pulse Resp BP Pulse Ox
98.8 F 74 16 98/65 97
10/12/25 04:05 10/12/25 06:00 10/12/25 04:05 10/12/25 04:05 10/12/25 04:05
Vital Signs
Temp Pulse Resp BP Pulse Ox
98.8 F 74 16 98/65 97
10/12/25 04:05 10/12/25 06:00 10/12/25 04:05 10/12/25 04:05 10/12/25 04:05
Intake & Output
10/10/25 10/11/25 10/12/25 10/13/25
06:59 06:59 06:59 06:59
Intake Total 580 / 580 1267.5 / 1267.5 1200 / 1200
Output Total 1525 / 1525 1775 / 1775 2185 / 2185
Balance -945 / -945 -507.5 / -507.5 -985 / -985
Physical Exam
Physical Exam
GEN: No distress, awake, Ox3
HEENT: supple, anicteric, mmm
LUNGS: scatt rhonchi
CV: Reg, S1/S2, 1/6 syst LSB, no gallop
ABD: soft, BS+, NT/ND
EXT: No edema
NEURO: Gross non-focal
SKIN: sternotomy
Telemetry demonstrates sinus rhythm PAC, PVC
[2025-10-12] MEDS: PACERONE 200 MG PO ×3 (08:22→22:42)
[2025-10-12] MEDS: PROTONIX 40 MG PO (08:22)
[2025-10-12] MEDS: TOPROL XL 25 MG PO ×2 (08:23→20:19)
[2025-10-12] MEDS: CIPRO 500 MG PO (08:23)
[2025-10-12] MEDS: FLOMAX 0.4 MG PO (08:23)
[2025-10-12] MEDS: KLOR-CON PO ×2 (08:23→09:14)
[2025-10-12] MEDS: LASIX 40 MG IV (08:23)
[2025-10-12] MEDS: VISBIOME 1 CAP PO (08:23)
[2025-10-12] MEDS: LIDOCAINE 4% PATCH TOPICAL (08:24)
[2025-10-12] MEDS: NEURONTIN PO (08:25)
--- NOTE | 2025-10-12 08:54 | PTCARENOTE ---
Assumed care of patient at 0700. Pt is awake, alert, and oriented. No complaints of pain at this time. Pt remains SR with PAC's, HR 80's. BP 93/66 MAP 75. Pulse oximetry 96% on room air. Pt tolerating PO diet. Kee catheter in place, urine yellow.
Kee care completed. Midsternal incision left lateral chest incisions with dressings in place, dressings appear CDI. RUE PICC in place, all lines able to flush. Pt currently OOB in chair with call streeter within reach.
[2025-10-12] MEDS: KCL 40 MEQ PO (09:40)
[2025-10-12] MEDS: TYLENOL 650 MG PO ×2 (11:57→18:15)
--- NOTE | 2025-10-12 12:05 | PTCARENOTE ---
Pt worked with physical therapy, tolerated well. Pt converted to Afib, HR 76. BP 110/57 MAP 71. Pulse oximetry 97% on room air. Wound care completed.
--- NOTE | 2025-10-12 15:56 | CON.ID ---
Consultation
-
Date/Time Consultation Requested: 10/12/2025 1048
Date/Time Consultation Performed: 10/12/2025 1550
Requesting Provider: Amilcar Arroyo
Performing Provider: Dr. Gipson
Reason for Consultation: Abnormal UA; leukocytosis
Chief Complaint / Past History
History of Present Illness
Eyad Hackett is an 80-year-old man with a significant past medical history of ischemic cardiomyopathy (EF ~15%) and recent elective CABG (09/17/2025) being evaluated in Infectious Diseases consultation regarding leukocytosis and abnormal UA.
History is obtained from chart review, along with patient interview.
The patient has a extremely complicated recent history which includes four-vessel CABG performed on 09/17/25, including placement of Impella device. He was ultimately discharged to home on 09/24, but returned to [facility] on 09/29 secondary
to episodes of shaking. Further workup included CTA of the chest which revealed a large left pleural effusion. Patient underwent redo sternotomy on 09/30 which included washout and evacuation of 1.5 L clot from the left chest. Additionally, he
required ligation of mammary vein and distal mammary stump. He has been on antibiotics in the treatment of recovered Pseudomonas and Klebsiella from a respiratory culture dated 10/02/2025. On 10/10 he failed a voiding trial and a Kee was
reinserted. He was found to have an abnormal UA following reinsertion, and Infectious Diseases assessed, and upon further antibiotic management.
Past History
Additional Past Medical History:
CAD
CHF
HTN
HLD
CLL
SYDNI
BPH
Additional Past Surgical History:
CABG x 4 (09/17/2025)
Allergy History:
ticlopidine (From Ticlid) Allergy (Verified 09/29/25 16:16)
MYALGIA
meperidine (From Demerol) Adverse Reaction (Verified 09/29/25 16:16)
Nausea
Medications Reviewed: Yes
Current Antibiotics:
Ciprofloxacin (day #7)
Social History
Tobacco: Former Smoker
Alcohol: Occasional
Drug: None
Personal:
Living: With Family
Review of Systems
Review of Systems
General: Negative Fever or Chills
Vital Signs
Temp Pulse Resp BP Pulse Ox
97.9 F 77 20 116/79 97
10/12/25 15:43 10/12/25 15:43 10/12/25 15:43 10/12/25 15:39 10/12/25 15:43
Physical Exam
Physical Exam
Constitutional: No Acute Distress, Comfortable, Chronically Ill and Non-toxic
Eyes: No Conjunctival Hemorrhage and Sclera Anicteric
Cardiovascular: Regular Rate and S1/S2; Negative S3/S4
Pulmonary: Coarse and Non Labored; Negative Wheezes or Rales
Gastrointestinal: Soft, Non Tender and Non Distended
Genito-Urinary: Kee and Clear Urine; Negative Turbid Urine or Hematuria
Extremities: Edema; Negative Cyanosis or Erythema
Wound: Other (Chest wounds C/I. Scant amount of serous drainage from chest tube sites. No periwound erythema.)
Neurological: Awake and Alert
Psychological: Calm
Lab / Diagnostic Study Results
10/12/25 03:42
10/12/25 03:42
Abs Immat Gran (auto) 0.2 10^3/uL (0-0.05) H 09/29/25 19:29
Absolute Neuts (auto) 16.3 10^3/uL (1.4-6.5) H 09/29/25 19:29
Absolute Lymphs (auto) 7.9 10^3/uL (1.2-3.4) H 09/29/25 19:29
Absolute Monos (auto) 0.9 10^3/uL (0.1-0.6) H 09/29/25 19:29
Absolute Basos (auto) 0.1 10^3/uL (0-0.2) 09/29/25 19:29
Immature Gran % 0.7 % (0-0.5) H 09/29/25 19:29
Neutrophils % 64.3 % (42.2-75.2) 09/29/25 19:
Lymphocytes % 31.0 % (20.5-51.1) 09/29/25 19:
Monocytes % 3.7 % (1.7-9.3) 09/29/25 19:
Eosinophils % 0.1 % (0-6) 09/29/25 19:
Basophils % 0.2 % (0-2) 09/29/25 19:
PT 17.6 Sec (11.4-14.6) H 10/01/25 03:36
INR 1.42 10/01/25 03:36
Lactic Acid 1.5 mmol/L (0.7-2.0) 10/07/25 03:56
Procalcitonin < 0.05 ng/ml (0.0-0.25) 09/29/25 17:28
Ur Squamous Epith Cells 3-5 /LPF (Few) 10/11/25 09:20
Microbiology Results
Micro:
10/11/25 09:20 Urine Culture - Final
Urine NO GROWTH
10/07/25 04:07 C. difficile GDH Antigen & Toxins - Final
Feces/Stool Negative for toxigenic C.difficile
10/02/25 09:27 Respiratory Culture - Final
Bronch Right Upper Lobe Pseudomonas aeruginosa
Klebsiella oxytoca
Gram Stain - Final
Imaging:
10/12/2025 CXR (portable): moderate asymmetric ground glass opacity in the right upper lobe with the DDx being right upper lobe pneumonia versus asymmetric alveolar pulmonary edema. There is mild interstitial pulmonary edema throughout both lungs.
Mildly decreased bilateral lung volumes. Please see full dictation for additional detail.
Assessment / Plan
Urinary retention s/p failed voiding trial with reinsertion of Kee catheter
- No evidence of UTI at present.
Leukocytosis with underlying history of CLL
Pseudomonas/Klebsiella from respiratory source
- Currently day #9 antibiotics
Renal insufficiency; improving
S/p recent CABG x 4 with delayed hemorrhage 12 days post SX requiring redo sternotomy and clot washout
Ischemic cardiomyopathy
- Chronic systolic CHF with reduced EF
- HTN/HLD
- BPH
Recommendations:
Continue with Cipro. Would complete a 10 to 14-day course depending on clinical progress.
Will monitor white count and temperature curve.
--- NOTE | 2025-10-12 16:30 | PTCARENOTE ---
Assisted pt to commode. Pt insisted on getting back in bed despite encouraging pt to stay OOB in chair. Pt becoming frustrated and increasingly agitated. Assisted pt back to bed. Wound care completed again on chest wounds due to increased serous
drainage. Pt in and out of SR and AFib with HR consistently remaining in the 70's-80's. BP 116/79 MAP 90.
[2025-10-12] MEDS: REMOVE LIDOCAINE PATCH REMOVE (19:32)
--- NOTE | 2025-10-12 20:30 | PTCARENOTE ---
Patient received resting in bed watching television. Patient A+A+Ox3. No neurological deficits noted. No c/o pain or discomfort. Room air. SpO2 97%. Atrial Fibrillation. Heart rate 70's. No c/o chest pain, pressure or discomfort. Abdomen
soft, nontender. Normoactive bowel sounds. No BM. No c/o nausea. No vomiting. Kee catheter - Intact and patent - 100 ml light tk, yellow urine. Patient with no c/o back or flank pain. Right upper arm PICC T.L.C. Dressings to sternal and
left chest incisions dry and intact. Left anterolateral incision - Dressing dry and intact. Afebrile. Lateral Rotation Bed. Assessment as documented.
[2025-10-12] MEDS: PROSCAR 5 MG PO (22:42)
[2025-10-12] MEDS: LIPITOR 40 MG PO (22:42)
--- NOTE | 2025-10-12 23:00 | PTCARENOTE ---
Patient sleeping without difficulty. Assessment/Interventions as documented.
[2025-10-13] VITALS (14 sets, daily range): BP systolic 106–124; BP diastolic 50–78; PULSE 80; BMI 26.6
--- NOTE | 2025-10-13 00:30 | PTCARENOTE ---
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 Patient sleeping during episode. Blood pressure 124/64 (79). Patient easily arousable. Patient A+A+Ox3. No neurological deficits noted. Patient with no c/o pain or discomfort. No c/o chest pain,
pressure, palpitations or discomfort. Patient back to sleep. Assessment/Interventions as documented.
[2025-10-13 03:39] LABS: Hematocrit 28.4 % (39.0-52.0); Hemoglobin 9.0 g/dL (13.0-18.0); Mean Corp Hgb Conc. 31.7 g/dL (33.0-37.0); Mean Corpuscular Volume 94.7 fL (80.0-94.0); Platelet Count 209 10^3/uL (130-400); Red Cell Dist. Width 15.9 % (11.5-14.5)
[2025-10-13 04:14] LABS: Blood Urea Nitrogen 45 mg/dl (9-20); Calcium 8.3 mg/dl (8.4-10.2); Carbon Dioxide 30 mmol/L (22-30); Chloride 108 mmol/L (98-107); Estimated Creatinine Clearance 42 ml/min; Glucose 93 mg/dl (70-99); Magnesium 2.1 mg/dl (1.6-2.3); Potassium 4.1 mmol/L (3.5-5.1); Sodium 137 mmol/L (135-145); eGFR 54.85
--- NOTE | 2025-10-13 04:30 | PTCARENOTE ---
Patient A+A+Ox3. No neurological deficits noted. No c/o pain or discomfort. media monitor: Atrial Fibrillation with occasional PVC. Heart rate 70's. Patient with no c/o chest pain, pressure, palpitations or discomfort. Patient given CHG bath
and linens changed. Sternal and left chest incisions - Dressing changed. Left anterolateral incision cleansed with Betadine solution and redressed. Face washed. Kee catheter care given. Lab work collected and sent. OOB to chair in AM.
Assessment/Interventions as documented.
--- NOTE | 2025-10-13 04:52 | W.PN.CT ---
Addendum entered and electronically signed by Tray Resendez MD 10/13/25 09:32:
I saw and examined the patient.
The PA's note was reviewed and I agree with the note.
Comment:
POD#13
No major overnight events. Back into rate-controlled AF overnight - no anticoagulation secondary to bleeding risk
Appreciate ID input regarding BAL and UA - UCx w/ NGTD - WBC 16.5. Continue cipro until 10/17
Creat improving, down to 1.3 today - ok to continue light diuresis
Acute rehab on D/C
Original Note:
Today's Communication / Plan
-
-pod #13
-no significant issues overnight
-now more consistently in afib, still with occasional PVCs
-seroma expelled and cleansed with Betadine on 10/11
-failed weaning of Adler on 10/10- Per Urology (Dr. Schilling), Adler reinserted and will need outpatient follow-up in 1 week for voiding trial
-abnormal UA on 10/11. Urine cx pending. Pt is already on Cipro until 10/17 for Pseudomonas/Klebsiella pna, appreciate ID recs
-CPAP for suspected SYDNI
-Chest US 10/08: Small RIGHT pleural effusion, too small for thoracentesis.
-Has been in and out a-fib with RVR postop, Remains on PO Amiodarone and Toprol XL 25 bid. -Holding ASA, Plavix, Eliquis given recent spontaneous bleed
-continue PT/OT
-? d/c acute rehab on Tuesday if bed available
Assessment / Plan
-
- Delayed hemorrhage 12 days post cardiac surgery- s/p Redo sternotomy; Washout and evacuation of approximately 1.5 L of clot from the left chest; Ligation of mammary vein and distal mammary stump; Ligation of large vein towards the neck; Thorough
evaluation of all bypass grafts by Dr Cartagena on 09/30/25 at 2:30am
- Recurrent hemorrhage with hemodynamic instability- s/p Reexploration of chest, redo sternotomy, evacuation of large clot between the left lower lobe and the pericardium the left side, inspection of all surgical sites which were all hemostatic,
packed with hemostatic agent, repair of chest wall, left lateral thoracotomy connected to the sternotomy incision for visualization, thoracotomy repair by Dr. Cartagena on 09/30/25 at 4:45 pm
- Continued hemorrhage - s/p angiogram of thoracic aorta and L bronchial artery by IR, Dr. Andrade. Findings at angio suspicious for small volume contrast extravasation distal branch L bronchial artery. Secondary to size and tortuosity of the aorta,
diminutive caliber and tortuosity of L bronchial artery, attempts to advance a microcatheter into the L bronchial artery for embolization were unsuccessful. No immediate procedural complications.
s/p Anterior lateral thoracotomy, ligation of arterial vessel, cautery of raw surface and lung tissue for hemostasis, multiple rounds of packing and serial evaluations of all quadrants, application of topical hemostatic agents, reapproximated ribs
and closure thoracotomy by Dr. Cartagena on 09/30/25 at 10:47 pm, POD#13
Source of bleed was noted to be: Spontaneous bronchial artery
- S/p Recent CABG x 4 surgery with planned Impella 5.5 support on 09/17/25 and discharged home with VN on 09/24/25
- Admitted 09/29/25 with dizziness and near syncope- Delayed post-CABG bleeding /Hemorrhagic shock, acute blood loss anemia
- Ischemic cardiomyopathy with EF of 35%
- Significant pleural effusion with respiratory failure
- Chronic lymphocytic leukemia with chronically elevated white count and thrombocytopenia
- Thrombocytopenia
- Multivessel coronary artery disease- hx PCI with stent
- Chronic systolic CHF with reduced EF
- HTN/HLD
- BPH
- hx Cataracts
- Carpal tunnel and hernia repair
- Cholecystectomy
- MONO on CKD (Cr baseline 1.3-14)
- 12 beat NSVT on 10/01
- PAF
-Acute postop blood loss anemia
-Acute postop respiratory failre-reintubated 10/01/25
-Acute post-op respiratory insufficiency
-Acute postop hypoxemia
-Acute postop hypovolemia and subsequent hypervolemia
-Acute postop Pseudomonas aeruginosa PNA
-Acute postop hypernatremia
-Acute postop hypokalemia
-Acute postop a-fib with RVR
-Acute postop Spontaneous bronchial artery bleed
-Acute postop diarrhea, likely from antibiotics, c.difficile negative
-Acute postop urinary retention, adler reinsertion night of 10/07
-Acute postop deconditioning
-Suspected SYDNI with O2 desaturation to mid 70s-80s during sleep - improved with CPAP
Subjective
-
Date of Service: October 13, 2025
Objective Data
-
Lab Results
10/13/25 03:22
10/13/25 03:22
PT 17.6 Sec (11.4-14.6) H 10/01/25 03:36
INR 1.42 10/01/25 03:36
APTT 33.5 Sec (23.4-35.0) 10/01/25 03:36
Vital Signs
Vital Signs
Temp Pulse Resp BP Pulse Ox
97.9 F 73 16 106/68 96
10/13/25 03:40 10/13/25 04:11 10/13/25 03:40 10/13/25 03:40 10/13/25 03:40
CT Intake/Output/Weight
10/12/25 10/12/25 10/13/25
06:59 18:59 06:59
Intake Total 240 / 1200 240 / 240
Output Total 700 / 2185 1150 / 1800 650 / 1800
Balance -460 / -985 -1150 / -1560 -410 / -1560
SaO2: 96
Physical Exam
-
General: Awake and Oriented
Cardiovascular: Irregular rate & rhythm and No Murmurs
Respiratory: Clear, Equal and Decreased Breath Sounds
Sternum: Stable
Incision: Clean, Dry and Intact
Extremities: Edema +1 and No Erythema
Data Reviewed
-
Lab Results: Results Reviewed
Medications: Active Meds Reviewed
Chest X-Ray: Report Reviewed
ECG: Report Reviewed
[2025-10-13] MEDS: TYLENOL PO (05:53)
[2025-10-13] MEDS: KCL 40 MEQ PO (07:52)
[2025-10-13] MEDS: TOPROL XL 25 MG PO ×2 (07:52→20:07)
[2025-10-13] MEDS: LIDOCAINE 4% PATCH TOPICAL (07:52)
[2025-10-13] MEDS: PROTONIX 40 MG PO (07:52)
[2025-10-13] MEDS: CIPRO 500 MG PO (07:52)
[2025-10-13] MEDS: PACERONE 200 MG PO ×3 (07:52→21:22)
[2025-10-13] MEDS: FLOMAX 0.4 MG PO (07:52)
[2025-10-13] MEDS: VISBIOME 1 CAP PO (07:52)
--- NOTE | 2025-10-13 08:45 | PTCARENOTE ---
Assumed care of patient at 0700. On walking rounds pt agitated reporting he wants to go home, states he is not getting any better, and no one is giving him answers. Attempted to discuss pt's concerns, however pt unable to have rational conversation
at that time. After providing time to rest, pt is now calm, cooperative, and no longer agitated. Attempted to address pt's concerns. Pt currently in Afib with HR 80's. BP 116/59 MAP 76. Pulse oximetry 97% on room air. Pt tolerating PO diet. Kee
catheter remains in place. Kee care completed. 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 Old chest tube site dressing changed and dressings on left lateral chest incisions changed. Large amount of serous fluid expressed from chest incision. Sites
cleaned with saline and Betadine, 4x4 and ADB applied. RUE PICC in place.
--- NOTE | 2025-10-13 08:51 | W.PN.ID1 ---
Date of Service
Date of Service: October 13, 2025
Today's Communication
Continue antibiotics.
Assessment / Plan
Urinary retention s/p failed voiding trial with reinsertion of Kee catheter
- No evidence of UTI at present.
Leukocytosis with underlying history of CLL
Pseudomonas/Klebsiella from respiratory source
- Currently day #9 antibiotics
Renal insufficiency; improving
S/p recent CABG x 4 with delayed hemorrhage 12 days post SX requiring redo sternotomy and clot washout
Ischemic cardiomyopathy
- Chronic systolic CHF with reduced EF
- HTN/HLD
- BPH
Recommendations:
Continue with Cipro (d#10 abx). Would complete a 14-day course.
Will monitor white count and temperature curve.
����������������������������������������������������������
Chief Complaint
-: Leukocytosis
Subjective / Review of Systems
Patient seen and examined. Overall feels well. Denies shortness of breath or cough.
Review of Systems: No Fever and No Chills
Vital Signs / Physical Exam
Vital Signs
Vital Signs
Temp Pulse Resp BP Pulse Ox
97.7 F 83 18 116/59 97
10/13/25 07:50 10/13/25 08:00 10/13/25 07:50 10/13/25 06:59 10/13/25 07:50
Physical Exam
Constitutional: No Acute Distress, Comfortable and Non-toxic
Eyes: Sclera Anicteric
Cardiovascular: S1/S2; Negative S3/S4
Pulmonary: Non Labored; Negative Wheezes or Rales
Gastrointestinal: Soft and Non Tender
Genito-Urinary: Kee and Clear Urine; Negative Turbid Urine or Hematuria
Neurological: Awake and Alert
Psychological: Calm
Objective Data
Lab Data
Lab Results
10/13/25 03:22
10/13/25 03:22
PT 17.6 Sec (11.4-14.6) H 10/01/25 03:36
INR 1.42 10/01/25 03:36
APTT 33.5 Sec (23.4-35.0) 10/01/25 03:36
Estimated Creat Clear 42 ml/min 10/13/25 03:22
Lactic Acid 1.5 mmol/L (0.7-2.0) 10/07/25 03:56
Total Bilirubin 1.8 mg/dl (0.2-1.3) H 10/07/25 03:56
AST 35 U/L (17-59) 10/07/25 03:56
ALT 14 U/L (0-50) 10/07/25 03:56
Alkaline Phosphatase 93 U/L (38-126) 10/07/25 03:56
Most recent labs reviewed.
Micro Results:
10/11/25 09:20 Urine Culture - Final
Urine NO GROWTH
10/07/25 04:07 C. difficile GDH Antigen & Toxins - Final
Feces/Stool Negative for toxigenic C.difficile
10/02/25 09:27 Respiratory Culture - Final
Bronch Right Upper Lobe Pseudomonas aeruginosa
Klebsiella oxytoca
Gram Stain - Final
Imaging:
10/12/2025 CXR (portable): moderate asymmetric ground glass opacity in the right upper lobe with the DDx being right upper lobe pneumonia versus asymmetric alveolar pulmonary edema. There is mild interstitial pulmonary edema throughout both lungs.
Mildly decreased bilateral lung volumes. Please see full dictation for additional detail.
Care Review
Plan reviewed with: Nurse
[2025-10-13] MEDS: LASIX 40 MG IV (11:18)
[2025-10-13] MEDS: TYLENOL 650 MG PO ×2 (11:18→16:58)
--- NOTE | 2025-10-13 11:41 | PTCARENOTE ---
Pt cooperative and pleasant. at bedside. Pt converted to SR HR 73. BP 119/67 MAP 83. Pulse oximetry 97% on room air. 40mg IV Lasix administered per order.
--- NOTE | 2025-10-13 16:25 | PTCARENOTE ---
Pt in Afib with HR 79. BP 106/62 MAP 74. Pulse oximetry 97% on room air. Pt worked with PT, tolerated well.
[2025-10-13] MEDS: REMOVE LIDOCAINE PATCH REMOVE (20:07)
[2025-10-13] MEDS: LIPITOR 40 MG PO (21:21)
[2025-10-13] MEDS: PROSCAR 5 MG PO (21:22)
[2025-10-14] VITALS (11 sets, daily range): BP systolic 74–135; BP diastolic 40–74; PULSE 76; O2SAT 96–98; BMI 27.3
--- NOTE | 2025-10-14 00:10 | PTCARENOTE ---
Received patient from [facility] at 1900. AAOx3, denies pain. Generalized weakness. Lungs dim on RA. Afib HR in 70's on portal developer. Generalized anasarca, +2 LE edema. LUE edematous and weeping. Surgical sites and previous chest tube site
dressings C/D/I. Kee in place draining clear yellow urine. VS trends documented in flowsheets, assessment unchanged from previous. Call streeter within reach and use encouraged. Care on going.
[2025-10-14 04:42] LABS: Hematocrit 28.3 % (39.0-52.0); Hemoglobin 9.1 g/dL (13.0-18.0); Mean Corp Hgb Conc. 32.2 g/dL (33.0-37.0); Mean Corpuscular Volume 95.6 fL (80.0-94.0); Platelet Count 206 10^3/uL (130-400); Red Cell Dist. Width 15.9 % (11.5-14.5)
--- NOTE | 2025-10-14 04:56 | W.PN.CT ---
Today's Communication / Plan
-
-pod #14
-no significant issues overnight
-Noted rate controlled PAF continued, currently NSR
-seroma expelled and cleansed with Betadine on 10/11
-failed weaning of Adler on 10/10- Per Urology (Dr. Schilling), Adler reinserted and will need outpatient follow-up in 1 week for voiding trial
-abnormal UA on 10/11. Urine cx NTD. Pt is already on Cipro until 10/17 for Pseudomonas/Klebsiella pna, appreciate ID recs- to continue for 14 day course
-CPAP for suspected SYDNI
-continue atorvastatin, PPI, finasteride, cipro, Toprol 25 mg, tamsulosin, amio
-Has been in and out a-fib with RVR postop, Remains on PO Amiodarone and Toprol XL 25 bid. -Holding ASA, Plavix, Eliquis given recent spontaneous bleed
-continue PT/OT
-? d/c acute rehab on Tuesday if bed available
Assessment / Plan
-
- Delayed hemorrhage 12 days post cardiac surgery- s/p Redo sternotomy; Washout and evacuation of approximately 1.5 L of clot from the left chest; Ligation of mammary vein and distal mammary stump; Ligation of large vein towards the neck; Thorough
evaluation of all bypass grafts by Dr Cartagena on 09/30/25 at 2:30am
- Recurrent hemorrhage with hemodynamic instability- s/p Reexploration of chest, redo sternotomy, evacuation of large clot between the left lower lobe and the pericardium the left side, inspection of all surgical sites which were all hemostatic,
packed with hemostatic agent, repair of chest wall, left lateral thoracotomy connected to the sternotomy incision for visualization, thoracotomy repair by Dr. Cartagena on 09/30/25 at 4:45 pm
- Continued hemorrhage - s/p angiogram of thoracic aorta and L bronchial artery by IR, Dr. Andrade. Findings at angio suspicious for small volume contrast extravasation distal branch L bronchial artery. Secondary to size and tortuosity of the aorta,
diminutive caliber and tortuosity of L bronchial artery, attempts to advance a microcatheter into the L bronchial artery for embolization were unsuccessful. No immediate procedural complications.
s/p Anterior lateral thoracotomy, ligation of arterial vessel, cautery of raw surface and lung tissue for hemostasis, multiple rounds of packing and serial evaluations of all quadrants, application of topical hemostatic agents, reapproximated ribs
and closure thoracotomy by Dr. Cartagena on 09/30/25 at 10:47 pm, POD#14
Source of bleed was noted to be: Spontaneous bronchial artery
- S/p Recent CABG x 4 surgery with planned Impella 5.5 support on 09/17/25 and discharged home with VN on 09/24/25
- Admitted 09/29/25 with dizziness and near syncope- Delayed post-CABG bleeding /Hemorrhagic shock, acute blood loss anemia
- Ischemic cardiomyopathy with EF of 35%
- Significant pleural effusion with respiratory failure
- Chronic lymphocytic leukemia with chronically elevated white count and thrombocytopenia
- Thrombocytopenia
- Multivessel coronary artery disease- hx PCI with stent
- Chronic systolic CHF with reduced EF
- HTN/HLD
- BPH
- hx Cataracts
- Carpal tunnel and hernia repair
- Cholecystectomy
- MONO on CKD (Cr baseline 1.3-14)
- 12 beat NSVT on 10/01
- PAF
-Acute postop blood loss anemia
-Acute postop respiratory failre-reintubated 10/01/25
-Acute post-op respiratory insufficiency
-Acute postop hypoxemia
-Acute postop hypovolemia and subsequent hypervolemia
-Acute postop Pseudomonas aeruginosa PNA
-Acute postop hypernatremia
-Acute postop hypokalemia
-Acute postop a-fib with RVR
-Acute postop Spontaneous bronchial artery bleed
-Acute postop diarrhea, likely from antibiotics, c.difficile negative
-Acute postop urinary retention, adler reinsertion night of 10/07
-Acute postop deconditioning
-Suspected SYDNI with O2 desaturation to mid 70s-80s during sleep - improved with CPAP
Subjective
-
Date of Service: October 14, 2025
Objective Data
-
Lab Results
10/14/25 04:15
PT 17.6 Sec (11.4-14.6) H 10/01/25 03:36
INR 1.42 10/01/25 03:36
APTT 33.5 Sec (23.4-35.0) 10/01/25 03:36
Vital Signs
Vital Signs
Temp Pulse Resp BP Pulse Ox
98.3 F 73 16 107/56 97
10/14/25 04:00 10/14/25 04:00 10/14/25 04:00 10/14/25 03:53 10/14/25 04:00
CT Intake/Output/Weight
10/13/25 10/13/25 10/14/25
06:59 18:59 06:59
Intake Total 240 / 240
Output Total 650 / 1800 985 / 985
Balance -410 / -1560 -985 / -985
SaO2: 97
Physical Exam
-
General: Awake and Oriented
Cardiovascular: Regular rate & rhythm and No Murmurs
Respiratory: Clear and Equal
Sternum: Stable
Incision: Clean and Dry
Extremities: Edema +1
Data Reviewed
-
Lab Results: Results Reviewed
Medications: Active Meds Reviewed
Chest X-Ray: Report Reviewed
ECG: Report Reviewed
[2025-10-14 05:10] LABS: Blood Urea Nitrogen 37 mg/dl (9-20); Calcium 8.4 mg/dl (8.4-10.2); Carbon Dioxide 29 mmol/L (22-30); Chloride 107 mmol/L (98-107); Estimated Creatinine Clearance 46 ml/min; Glucose 91 mg/dl (70-99); Magnesium 1.9 mg/dl (1.6-2.3); Potassium 4.0 mmol/L (3.5-5.1); Sodium 135 mmol/L (135-145); eGFR > 60.00
[2025-10-14] MEDS: TYLENOL PO ×4 (06:30→18:25)
[2025-10-14] MEDS: VISBIOME 1 CAP PO (08:17)
[2025-10-14] MEDS: FLOMAX 0.4 MG PO (08:17)
[2025-10-14] MEDS: CIPRO 500 MG PO ×2 (08:17→20:25)
[2025-10-14] MEDS: TOPROL XL 25 MG PO ×2 (08:18→20:25)
[2025-10-14] MEDS: PROTONIX 40 MG PO (08:18)
[2025-10-14] MEDS: PACERONE 200 MG PO ×3 (08:18→22:21)
[2025-10-14] MEDS: LIDOCAINE 4% PATCH TOPICAL (08:18)
--- NOTE | 2025-10-14 08:22 | PTCARENOTE ---
Assumed care of patient from shift mechanic RN, AAO, but forgetful at times. A fib on monitor. Room air 97%, IS / acapella encouraged. Abdomen soft and non tender, appetite good. Kee intact. Bilateral upper extremity with plus one edema. Trace
bilateral lower edema . Pulses palpable. Surgical dressings c,d,i. Plan for day discussed
[2025-10-14] MEDS: KCL 40 MEQ PO (08:40)
[2025-10-14] MEDS: LOW STRENGTH ASPIRIN 81 MG PO (08:40)
[2025-10-14] MEDS: LASIX 40 MG PO (08:40)
--- NOTE | 2025-10-14 09:42 | W.PN.CARDCBS ---
Today's Communication / Plan
-
Supportive postop care and rehab effort
Continue arrhythmia monitoring but hold off anticoagulation at this time given high risk of bleeding
Continue amiodarone but reduce to 200 mg twice daily at time of discharge
Check twelve-lead EKG for QTc
Impression / Plan
-
Primary activities specialist: Dr. Paez of [facility] [place]
Impression:
Hemorrhagic shock 2/2 Delayed hemorrhage 12 days post cardiac surgery; source determined to be spontaneous bronchial artery
s/p Redo sternotomy; Washout and evacuation of approximately 1.5 L of clot from the left chest; Ligation of mammary vein and distal mammary stump; Ligation of large vein towards the neck; Thorough evaluation of all bypass grafts by Dr Cartagena on
09/30/25 at 2:30am
s/p Reexploration of chest, redo sternotomy, evacuation of large clot between the left lower lobe and the pericardium the left side, inspection of all surgical sites which were all hemostatic, packed with hemostatic agent, repair of chest wall,
left lateral thoracotomy connected to the sternotomy incision for visualization, thoracotomy repair by Dr. Cartagena on 09/30/25 at 4:45 pm
s/p angiogram of thoracic aorta and L bronchial artery by IR, Dr. Andrade. Findings at angio suspicious for small volume contrast extravasation distal branch L bronchial artery. Secondary to size and tortuosity of the aorta, diminutive caliber and
tortuosity of L bronchial artery, attempts to advance a microcatheter into the L bronchial artery for embolization were unsuccessful. No immediate procedural complications.
s/p Anterior lateral thoracotomy, ligation of arterial vessel, cautery of raw surface and lung tissue for hemostasis, multiple rounds of packing and serial evaluations of all quadrants, application of topical hemostatic agents, reapproximated ribs
and closure thoracotomy by Dr. Cartagena on 09/30/25 at 10:47 pm
Postop anemia with acute blood loss requiring multiple transfusions [13 units packed red blood cells, 2 units FFP, 4 pools platelets]
Elective CABG x 4 [VASQUEZ�LAD, SVG�PDA, SVG�DX�OM] with placement of a 5.5 Impella 09/17/[address] Cartagena
NSVT, ventricular bigeminy
Paroxysmal atrial fibrillation
Ischemic cardiomyopathy with preoperative ejection fraction 15 to 20% and postoperative ejection fraction 40%
History of BPH with postoperative urinary retention requiring Kee catheter
Hypertension
Hyperlipidemia
SYDNI
Polycythemia vera
CLL with chronic thrombocytopenia
Spinal stenosis
GERD
Depression/anxiety
Echo Sep 23 2025: EF 40-45% no significant valve disease
Urgent bedside echo very limited Sep 29 2025 as below
Urgent left cath Sep 29 2025: Widely patent grafts with no obvious source of bleeding.
Plan:
-80-year-old gentleman status post recent CABG with Impella on September 17, 2025 who presented back critically ill with hemorrhagic shock with CT placement in ER for hemothorax underwent multiple surgeries 09/30 ultimately resulting in anterolateral
thoracotomy, bronchial artery source of bleed s/p arterial ligation
-Hemodynamically stable off pressors and maintaining hemoglobin, currently 9.1 with improved renal function, creatinine 1.2, peak 3 on October 08
-Postop rate controlled PAF. At this time, per CT surgery, no oral anticoagulation or antiplatelet agents. Outpatient monitoring; if OAC felt to be option in future, would consider monotherapy with eliquis 2.5mg BID
-Continue amiodarone 200mg BID at time of discharge to rehab for one month and then 200mg daily thereafter
-Continue toprol 25mg BID.
-Repeat EKG; QTc stable 10/09
-Chest x-ray 10/04/2025 shows new patchy airspace in right upper lobe likely atelectasis. Sputum culture grew Pseudomonas aeruginosa. Started cefepime by CTS 10/04/2025 and transitioned to Ciprofloxacin to continue until 10/17
-Maintain Kee catheter with outpatient urology follow-up
-continue post op care, rehab efforts, IS
-Possible d/c to [facility]
HPI: I had the pleasure to meet Eyad Hackett along with his Harriet in ER bed 17 for evaluation of hypotension and several episodes of near syncope with falls and shortness of breath status post recent CABG x [address] Cartagena on September 17, 2025.
He is followed by Dr. Paez with [facility]. Reg has a history of ischemic cardiomyopathy with an ejection fraction 15% and known multivessel coronary artery disease who had a recent positive stress test and subsequent left heart catheterization
demonstrating multivessel coronary disease referred for CABG. Additionally, he has a history of hypertension, hyperlipidemia, BPH with urinary retention, CLL with chronic thrombocytopenia, and sleep apnea.
.
He was admitted electively September 15, 2025 and placed on a dobutamine drip and underwent diuresis for optimization prior to elective CABG x 4 [VASQUEZ�LAD, SVG�PDA, SVG�DX�OM] with placement of a 5.5 Impella 09/17/[address] Cartagena; impella was removed
on September 19. A repeat echocardiogram on dobutamine reported an improved ejection fraction around 40%. Postoperative course was complicated by hypotension, acute on chronic renal insufficiency and urinary retention. He was weaned off inotropes,
pressors and midodrine prior to discharge home on September 24. His hospital course was complicated by urinary retention and he was discharged home with a Kee catheter. His discharge medications include aspirin 81 mg daily, Plavix 75 mg daily,
metoprolol succinate 12.5 mg twice daily, Bumex 2 mg daily, Jardiance 10 mg daily.
.
Patient and his states that he has been feeling fine since discharge until this morning. Following breakfast fell felt like he had to go to the bathroom and have a bowel movement however on his way to the restroom with the assistance of his
he became extremely shaky and weak. She was able to get him to the bathroom where he fell to his knees. She denies loss of consciousness or head trauma. He ultimately never had a bowel movement. He had 3 more near-syncopal events with
profound weakness and increasing shortness of breath prompting return to the emergency department. He denies chest pain or pressure. He denies fevers or chills. He denies chest wall or head trauma with falls. In the emergency department he was
noted to be hypotensive with initial blood pressures reportedly 60s and 70s systolic which responded initially to IV fluids. Initial chest x-ray showed widened mediastinum and globular heart with elevated left hemidiaphragm and a new large opacity
in the left hemithorax. Initial twelve-lead EKG was sinus rhythm with PACs and an incomplete left bundle branch block with ST-T wave abnormalities in the inferior lateral leads with prolonged QT at 500 ms not significantly changed from prior study.
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 Initial hemoglobin 8.6, hemoglobin 8.9 on day of discharge September 24. Platelets 357. Sodium 136, potassium 3.4. BUN and creatinine 23/1.4. Creatinine was 1.2
on day of discharge. I within normal limits. Cardiac troponin 0.065. proBNP 4700. Procalcitonin less than 0.05. Lactate 2.
.
Patient was seen and examined with Dr. Cartagena and CT surgery PA as well as ER physician Dr. Nash. Stat CTA of the chest demonstrated new large left pleural effusion and tiny right pleural effusion. There was a pericardial effusion posteriorly
which demonstrated contrast extravasation and pooling raising concern for delayed bleeding from one of the grafts. A chest tube was placed by CT surgery in the emergency room with significant bloody drainage, totaling 2.7 L following urgent cardiac
catheterization. Patient was transported to cardiac cath where he was electively intubated with anesthesia. Interventional cardiology performed emergent coronary angiography and arteriogram with no obvious extravastion identified in grafts or at
site of Impella graft. He was then transported to the CVICU for close monitoring on Levophed having received 3 units packed red blood cells.
Progress Note - Instructor Psychiatric Aide
Subjective
Date of Service: October 14, 2025
Patient seen and examined sitting out of bed to chair. Offers no complaints and anxious to go to rehab. Kee catheter maintained for history of urinary retention. No chest pain or pressure. No dizziness. No shortness of breath
Objective
Labs:
10/14/25 04:15
10/14/25 04:15
Labs
Hgb 9.1 g/dL (13.0-18.0) L 10/14/25 04:15
Hct 28.3 % (39.0-52.0) L 10/14/25 04:15
Plt Count 206 10^3/uL (130-400) 10/14/25 04:15
PT 17.6 Sec (11.4-14.6) H 10/01/25 03:36
INR 1.42 10/01/25 03:36
APTT 33.5 Sec (23.4-35.0) 10/01/25 03:36
Sodium 135 mmol/L (135-145) 10/14/25 04:15
Potassium 4.0 mmol/L (3.5-5.1) 10/14/25 04:15
BUN 37 mg/dl (9-20) H 10/14/25 04:15
Creatinine 1.2 mg/dL (0.7-1.3) 10/14/25 04:15
Glucose 91 mg/dl (70-99) 10/14/25 04:15
Vital Signs and I&O:
Vital Signs
Temp Pulse Resp BP Pulse Ox
98.2 F 84 22 108/40 97
10/14/25 07:58 10/14/25 08:00 10/14/25 07:58 10/14/25 07:56 10/14/25 08:27
Vital Signs
Temp Pulse Resp BP Pulse Ox
98.2 F 84 22 108/40 97
10/14/25 07:58 10/14/25 08:00 10/14/25 07:58 10/14/25 07:56 10/14/25 08:27
Intake & Output
10/12/25 10/13/25 10/14/25 10/15/25
06:59 06:59 06:59 06:59
Intake Total 1200 / 1200 240 / 240 240 / 240 240 / 240
Output Total 2185 / 2185 1800 / 1800 1510 / 1510 60 / 60
Balance -985 / -985 -1560 / -1560 -1270 / -1270 180 / 180
Physical Exam
Physical Exam
GEN: No distress, awake, Ox3
HEENT: mmm
LUNGS: Bronchovesicular breath sounds, decreased but clear
CV: Irregularly irregular positive S1-S2. No murmurs. No rubs
ABD: soft, BS+, NT/ND
EXT: No edema
SKIN: sternotomy
[2025-10-14] MEDS: MAGNESIUM OXIDE PO (11:34)
--- NOTE | 2025-10-14 12:25 | PTCARENOTE ---
Pt converted on own to SR w/ PAC's. When standing with PT/OT LT chest wall dressing became saturated with serous drainage and required entire dresisng change as well as linens and gown,. CHG cloth bath preformed at this time. All surgical sites
on chest cleansed with Betadine and redressed per order. VSS assessment otherwise unchanged from prior
--- NOTE | 2025-10-14 12:37 | W.PN.ID1 ---
Date of Service
Date of Service: October 14, 2025
Today's Communication
Continue antibiotics.
Assessment / Plan
Urinary retention s/p failed voiding trial with reinsertion of Kee catheter
- No evidence of UTI at present.
Leukocytosis with underlying history of CLL
Pseudomonas/Klebsiella from respiratory source
- Currently day #9 antibiotics
Renal insufficiency; improving
S/p recent CABG x 4 with delayed hemorrhage 12 days post SX requiring redo sternotomy and clot washout
Ischemic cardiomyopathy
- Chronic systolic CHF with reduced EF
- HTN/HLD
- BPH
Recommendations:
Continue with Cipro (d#11 abx). Would complete a 14-day course. Dosed adjusted for improving renal function.
Continue to monitor white count and temperature curve.
Monitor Cr. and est CrCl
����������������������������������������������������������
Chief Complaint
-: Leukocytosis
Subjective / Review of Systems
Review of Systems: No Fever, No Chills, Cough, No Sputum Production and No Chest Pain
Vital Signs / Physical Exam
Vital Signs
Vital Signs
Temp Pulse Resp BP Pulse Ox
98.4 F 77 20 135/72 97
10/14/25 12:00 10/14/25 12:10 10/14/25 12:00 10/14/25 12:10 10/14/25 12:00
Physical Exam
Constitutional: No Acute Distress, Comfortable and Non-toxic
Eyes: Sclera Anicteric
Cardiovascular: S1/S2; Negative S3/S4
Pulmonary: Non Labored; Negative Wheezes or Rales
Gastrointestinal: Soft and Non Tender
Genito-Urinary: Kee and Clear Urine; Negative Turbid Urine or Hematuria
Neurological: Awake and Alert
Psychological: Calm
Objective Data
Lab Data
Lab Results
10/14/25 04:15
10/14/25 04:15
PT 17.6 Sec (11.4-14.6) H 10/01/25 03:36
INR 1.42 10/01/25 03:36
APTT 33.5 Sec (23.4-35.0) 10/01/25 03:36
Estimated Creat Clear 46 ml/min 10/14/25 04:15
Lactic Acid 1.5 mmol/L (0.7-2.0) 10/07/25 03:56
Total Bilirubin 1.8 mg/dl (0.2-1.3) H 10/07/25 03:56
AST 35 U/L (17-59) 10/07/25 03:56
ALT 14 U/L (0-50) 10/07/25 03:56
Alkaline Phosphatase 93 U/L (38-126) 10/07/25 03:56
Most recent labs reviewed.
Micro Results:
10/11/25 09:20 Urine Culture - Final
Urine NO GROWTH
10/07/25 04:07 C. difficile GDH Antigen & Toxins - Final
Feces/Stool Negative for toxigenic C.difficile
10/02/25 09:27 Respiratory Culture - Final
Bronch Right Upper Lobe Pseudomonas aeruginosa
Klebsiella oxytoca
Gram Stain - Final
Imaging:
10/14/2025 CXR (2 view): similar appearance of the mild interstitial opacification which may represent edema or possible pneumonia. Small right pleural effusion. No pneumothorax noted.
10/12/2025 CXR (portable): moderate asymmetric ground glass opacity in the right upper lobe with the DDx being right upper lobe pneumonia versus asymmetric alveolar pulmonary edema. There is mild interstitial pulmonary edema throughout both lungs.
Mildly decreased bilateral lung volumes. Please see full dictation for additional detail.
Care Review
Plan reviewed with: Nurse
--- NOTE | 2025-10-14 14:43 | CM ---
Chart reviewed. Patient is independent of ADLS, lives with his in a [facility], [address], ambulates with a RW. PT/OT evaluation recommending [facility]. Referral sent. Patient going for a thoracentesis today. Plan is for the patient
to go to [facility] when medically stable. CM to follow
--- NOTE | 2025-10-14 16:00 | PTCARENOTE ---
Transferred back from IR for Thoracentesis. RT back bandage c,d,i. VSS, RT chest dressing c,d,i . Will reassess as needed
--- NOTE | 2025-10-14 18:40 | PTCARENOTE ---
Wound vac placed to sternum by ct PA, Dressing reinforced d/t leak.
[2025-10-14] MEDS: REMOVE LIDOCAINE PATCH REMOVE (20:25)
--- NOTE | 2025-10-14 20:30 | PTCARENOTE ---
Assumed care of pt from dayshift RN. Walking rounds completed. Pt oriented to person, place, and time. In/out of SR/a-fib on the tele monitor. HR 70s. Audible heart tones. BP stable. Palpable pulses throughout. +1 B/L UE edema, trace B/L LE edema
present. Pt on RA. POX 96%. Lung sounds diminished throughout. Deep breathing and IS encouraged. Abdomen round. +BSx4. Indwelling urinary catheter in place and draining yellow urine. PIV x1 intact. Sternal wound vac in place. All other surgical
sites stable. Pt repositioned as documented. No c/o pain at this time. See worklist for full nursing assessment and interventions. Call streeter within reach.
[2025-10-14] MEDS: PROSCAR 5 MG PO (22:21)
[2025-10-14] MEDS: LIPITOR 40 MG PO (22:21)
--- NOTE | 2025-10-15 00:25 | W.PN.CT ---
Today's Communication / Plan
-
Plan:
-No major issues overnight. Hemodynamically and neurologically intact
-Underwent right s/p right thoracentesis with evacuation of 450 mL of serosanguineous fluid
-Noted to have serous drainage from chest tube site wound, wound vac applied, no drainage since application
-F/U AM cxr, pending
-On Ciprofloxacin for positive bronchoscopy cultures of Klebsiella and Pseudomonas. Continue antibiotics per ID, today is day 12 of 14 day course
-Has been in and out of a-fib postop
-Resumed ASA yesterday 10/14/25, holding anticoagulation given recent bleed
-Cont. gentle diuresis with PO Lasix, replete electrolytes
-Cont. adler catheter for postop urinary retention
-Tolerating regular diet, continue
-OOB into chair/Ambulate/PT-OT follow up
-D/C to [facility] today
Assessment / Plan
-
- Delayed hemorrhage 12 days post cardiac surgery- s/p Redo sternotomy; Washout and evacuation of approximately 1.5 L of clot from the left chest; Ligation of mammary vein and distal mammary stump; Ligation of large vein towards the neck; Thorough
evaluation of all bypass grafts by Dr Cartagena on 09/30/25 at 2:30am
- Recurrent hemorrhage with hemodynamic instability- s/p Reexploration of chest, redo sternotomy, evacuation of large clot between the left lower lobe and the pericardium the left side, inspection of all surgical sites which were all hemostatic,
packed with hemostatic agent, repair of chest wall, left lateral thoracotomy connected to the sternotomy incision for visualization, thoracotomy repair by Dr. Cartagena on 09/30/25 at 4:45 pm
- Continued hemorrhage - s/p angiogram of thoracic aorta and L bronchial artery by IR, Dr. Andrade. Findings at angio suspicious for small volume contrast extravasation distal branch L bronchial artery. Secondary to size and tortuosity of the aorta,
diminutive caliber and tortuosity of L bronchial artery, attempts to advance a microcatheter into the L bronchial artery for embolization were unsuccessful. No immediate procedural complications.
s/p Anterior lateral thoracotomy, ligation of arterial vessel, cautery of raw surface and lung tissue for hemostasis, multiple rounds of packing and serial evaluations of all quadrants, application of topical hemostatic agents, reapproximated ribs
and closure thoracotomy by Dr. Cartagena on 09/30/25 at 10:47 pm, POD#15
Source of bleed was noted to be: Spontaneous bronchial artery
-s/p right thoracentesis with evacuation of 450 mL of serosanguineous fluid
- S/p Recent CABG x 4 surgery with planned Impella 5.5 support on 09/17/25 and discharged home with VN on 09/24/25
- Admitted 09/29/25 with dizziness and near syncope- Delayed post-CABG bleeding /Hemorrhagic shock, acute blood loss anemia
- Ischemic cardiomyopathy with EF of 35%
- Significant pleural effusion with respiratory failure
- Chronic lymphocytic leukemia with chronically elevated white count and thrombocytopenia
- Thrombocytopenia
- Multivessel coronary artery disease- hx PCI with stent
- Chronic systolic CHF with reduced EF
- HTN/HLD
- BPH
- hx Cataracts
- Carpal tunnel and hernia repair
- Cholecystectomy
- MONO on CKD (Cr baseline 1.3-14)
- 12 beat NSVT on 10/01
- PAF
-Acute postop blood loss anemia
-Acute postop respiratory failre-reintubated 10/01/25
-Acute post-op respiratory insufficiency
-Acute postop hypoxemia
-Acute postop hypovolemia and subsequent hypervolemia
-Acute postop Pseudomonas aeruginosa PNA
-Acute postop hypernatremia
-Acute postop hypokalemia
-Acute postop a-fib with RVR
-Acute postop Spontaneous bronchial artery bleed
-Acute postop diarrhea, likely from antibiotics, c.difficile negative
-Acute postop urinary retention, adler reinsertion night of 10/07
-Acute postop deconditioning
-Suspected SYDNI with O2 desaturation to mid 70s-80s during sleep - improved with CPAP
Discussed patient care with: Cardiology, Nursing, Respiratory Therapy, Pharmacy and Care Team
Subjective
-
Date of Service: October 15, 2025
Pt offers no complaints, looking forward to discharge
Objective Data
-
PT 17.6 Sec (11.4-14.6) H 10/01/25 03:36
INR 1.42 10/01/25 03:36
APTT 33.5 Sec (23.4-35.0) 10/01/25 03:36
Vital Signs
Vital Signs
Temp Pulse Resp BP Pulse Ox
98.6 F 79 16 100/58 96
10/14/25 20:23 10/14/25 20:23 10/14/25 20:23 10/14/25 20:23 10/14/25 20:23
CT Intake/Output/Weight
10/14/25 10/14/25 10/15/25
06:59 18:59 06:59
Intake Total 240 / 240 600 / 600
Output Total 525 / 1510 1060 / 1270 210 / 1270
Balance -285 / -1270 -460 / -670 -210 / -670
SaO2: 96 (RA)
Physical Exam
-
General: Awake, Oriented and AOx3
Cardiovascular: Regular rate & rhythm, No Murmurs, No Rub and No Gallop
Respiratory: Decreased Breath Sounds
Sternum: Stable
Incision: Clean, Dry, Intact and Dressing Intact
Extremities: Edema +1
Data Reviewed
-
Lab Results: Results Reviewed
Medications: Active Meds Reviewed
Chest X-Ray: Report Reviewed and Image Reviewed
ECG: Report Reviewed and Image Reviewed
[2025-10-15 00:39] VITALS: BP 113/95
--- NOTE | 2025-10-15 00:42 | PTCARENOTE ---
No acute changes in assessment. VSS. Sternal wound vac intact. Kee catheter intact and draining yellow urine. No c/o pain at this time. Repositioned as documented. Call streeter within reach.
[2025-10-15] MEDS: TYLENOL PO ×2 (00:43→11:13)
[2025-10-15 03:09] VITALS: BP 116/62
--- NOTE | 2025-10-15 03:36 | PTCARENOTE ---
No acute changes in assessment. VSS. SR on the tele monitor. HR 60-70s. Sternal wound vac intact. Kee catheter intact and draining yellow urine. No c/o pain at this time. Repositioned as documented. Labs drawn and sent. Call streeter within reach.
[2025-10-15 03:40] LABS: Hematocrit 27.4 % (39.0-52.0); Hemoglobin 8.9 g/dL (13.0-18.0); Mean Corp Hgb Conc. 32.5 g/dL (33.0-37.0); Mean Corpuscular Volume 95.1 fL (80.0-94.0); Platelet Count 211 10^3/uL (130-400); Red Cell Dist. Width 15.9 % (11.5-14.5)
[2025-10-15 04:03] LABS: Blood Urea Nitrogen 32 mg/dl (9-20); Calcium 8.3 mg/dl (8.4-10.2); Carbon Dioxide 29 mmol/L (22-30); Chloride 107 mmol/L (98-107); Estimated Creatinine Clearance 46 ml/min; Glucose 95 mg/dl (70-99); Magnesium 1.8 mg/dl (1.6-2.3); Potassium 4.0 mmol/L (3.5-5.1); Sodium 134 mmol/L (135-145); eGFR > 60.00
[2025-10-15 05:35] VITALS: BMI 27.5
[2025-10-15] MEDS: TYLENOL 650 MG PO (05:40)
--- NOTE | 2025-10-15 07:30 | PTCARENOTE ---
Received pt from detective and intelligence analyst RN; pt AAOX3 and resting comfortably in chair; NSR PACs on monitor and VSS; Lungs diminished; positive bowel sounds; Kee Catheter draining yellow urine; weak lower extremity pulses; Trace generalized edema noted; all
surgical sites C/D/I; see nursing documentation for further details.
[2025-10-15 08:17] VITALS: BP 115/72
[2025-10-15] MEDS: PROTONIX 40 MG PO (08:19)
[2025-10-15] MEDS: MAGNESIUM OXIDE 400 MG PO (08:19)
[2025-10-15] MEDS: FLOMAX 0.4 MG PO (08:19)
[2025-10-15] MEDS: CIPRO 500 MG PO (08:19)
[2025-10-15] MEDS: KCL 40 MEQ PO (08:19)
[2025-10-15] MEDS: VISBIOME 1 CAP PO (08:19)
[2025-10-15] MEDS: TOPROL XL 25 MG PO (08:20)
[2025-10-15] MEDS: LASIX 40 MG PO (08:20)
[2025-10-15] MEDS: PACERONE 200 MG PO (08:20)
[2025-10-15] MEDS: LOW STRENGTH ASPIRIN 81 MG PO (08:20)
[2025-10-15] MEDS: LIDOCAINE 4% PATCH TOPICAL (08:20)
--- NOTE | 2025-10-15 08:21 | W.DCSUMMARY ---
Discharge Summary
Discharge Data
Date of Admission: 09/29/25
Date of Discharge: 10/15/25
-
Pending Results: No
Hospital Course
Primary care physician: Dr. Melody Varghese
Outpatient varitype operator: Dr. Jarrod Alcazar
Inpatient consultants: [facility], Infectious Disease, [employer]/Director Of Field Sales, Wound/Ostomy, Interventional Radiology
Procedures:
- Delayed hemorrhage 12 days post cardiac surgery- s/p Redo sternotomy; Washout and evacuation of approximately 1.5 L of clot from the left chest; Ligation of mammary vein and distal mammary stump; Ligation of large vein towards the neck; Thorough
evaluation of all bypass grafts by Dr Cartagena on 09/30/25 at 2:30am
- Recurrent hemorrhage with hemodynamic instability- s/p Reexploration of chest, redo sternotomy, evacuation of large clot between the left lower lobe and the pericardium the left side, inspection of all surgical sites which were all hemostatic,
packed with hemostatic agent, repair of chest wall, left lateral thoracotomy connected to the sternotomy incision for visualization, thoracotomy repair by Dr. Cartagena on 09/30/25 at 4:45 pm
- Continued hemorrhage - s/p angiogram of thoracic aorta and L bronchial artery by IR, Dr. Andrade. Findings at angio suspicious for small volume contrast extravasation distal branch L bronchial artery. Secondary to size and tortuosity of the aorta,
diminutive caliber and tortuosity of L bronchial artery, attempts to advance a microcatheter into the L bronchial artery for embolization were unsuccessful. No immediate procedural complications
- s/p Anterior lateral thoracotomy, ligation of arterial vessel, cautery of raw surface and lung tissue for hemostasis, multiple rounds of packing and serial evaluations of all quadrants, application of topical hemostatic agents, reapproximated ribs
and closure thoracotomy by Dr. Cartagena on 09/30/25 at 10:47 pm
Source of bleed was noted to be: Spontaneous bronchial artery
-s/p right thoracentesis with evacuation of 450 mL of serosanguineous fluid on 10/14/25 by IR, Dr. Amilcar Andrade
Primary Diagnosis:
1. 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
Secondary Diagnoses:
1. S/p Recent CABG x 4 surgery with planned Impella 5.5 support on 09/17/25 and discharged home with VN on 09/24/25
2. Hemorrhagic shock, acute blood loss anemia
3. Ischemic cardiomyopathy with EF of 35%
4. Significant pleural effusion with respiratory failure
5. Chronic lymphocytic leukemia with chronically elevated white count and thrombocytopenia
6. Thrombocytopenia
7. Multivessel coronary artery disease- hx PCI with stent
8. Chronic systolic CHF with reduced EF
9. HTN/HLD
10. BPH
11. Hx Cataracts
12. Carpal tunnel and hernia repair
13. Cholecystectomy
14. MONO on CKD (Cr baseline 1.3-14)
15. 12 beat NSVT on 10/01
16. PAF
HPI: Mr. Eyad Hackett is an 80-year-old male s/p CABG x 4 with planned Impella 5.[address] Chun Cartagena on 09/17/25, discharged 09/24/25, who presented to [facility] ED on 09/29/25 with complaints of dizziness and near syncope. Patient was
found to have delayed post-CABG bleeding attributed to spontaneous bronchial arterial bleeding with subsequent hemorrhagic shock and acute blood-loss anemia requiring emergent surgical interventions.
Hospital course: Patient presented to [facility] ED on 09/29/25 with complaints of dizziness and near syncope. Patient was found to be hypotensive with large left pleural effusion on CXR. CTA was negative for dissection but revealed dye extravasation
from the posterior aspect of the heart. A pigtail catheter was inserted into L hemithorax with liberation of 2.[address] Surgery was consulted due to recent discharge from CABG in which Dr. Cartagena referred patient for LHC. LHC was negative for
extravasation despite continuous bleeding from left pigtail in which decision was made for CVOR for redo-sternotomy in which 1.5L of clot was evacuated from L hemithorax and anterior mediastinum. The mammary vein was noted to be bleeding and
hemostasis was achieved. Upon arrival to CVICU, patient became hypotensive with increased output from L pigtail without coagulopathy. Patient returned to CVOR for re-exploration in which evacuation of large clot between LLL and pericardium of L side
were extracted and all surgical sites were hemostatic; a left lateral thoracotomy connected to the sternotomy incision for visualization was created. To follow, patient continued to hemorrhage in which IR was consulted for angiogram of thoracic
aorta and L bronchial artery in which a bronchial artery hemorrhage were found and unable to be embolized. Patient went to CVOR for anterior lateral thoracotomy, ligation of arterial vessel, cauterization of raw surface and lung tissue for
hemostasis. Following procedure, patient gained hemostasis and remained within the CVICU.
Postoperative course was complicated by acute blood-loss anemia in which patient received a total of 13 u pRBCs, 2 FFP, and 4 platelet. Patient further endured acute postop hypovolemia and subsequent hypervolemia in which he was aggressively
diuresed throughout his hospital course with IV diuretic therapy. He was ultimately discharged to [facility] with PO Lasix 40 mg BID. Weight upon discharge was 82 kg and 86.3 kg preoperatively, his 'dry' weight is predicted to be 79.7 kg.
Postoperative course was further complicated by acute hypoxic respiratory failure with need for re-intubation on 10/01/25. On 10/02/25, patient underwent a bronchoscopy without significant findings. Patient was ultimately extubated on 10/03/25 to
BiPAP. Patients respiratory status improved with aggressive diuresis and pulmonary hygiene. Patient was suspected to have SYDNI with O2 desaturation to mid 70-80's during sleep with improvement of CPAP HS. Sputum culture was obtained and resulted
with pseudomonas aeruginosa/klebsiella oxytoca. Infectious disease was consulted for PNA. Patient was initiated on Cefepime on 10/04/25, then transitioned to PO Ciprofloxacin 500 mg daily with a discontinuation date of 10/17/25. Patient endured
postoperative diarrhea which was suspected to be attributed to prolonged antibiotic therapy. C Difficile testing was negative. Patient was initiated on a probiotic and PRN loperamide 2 mg with improvement. Famotidine 20 mg BID and Protonix 40 mg
daily were further continued for GERD/GI PPx.
Patient endured acute postoperative urinary retention and subsequent MONO (peak Cr 3.0 on 10/08/25) with need for Kee reinsertion on 10/07/25. Urology was consulted. Flomax 0.4 mg daily and Finasteride 5 mg HS were initiated. UA was sent with
concern for UTI, urine culture had no growth. Patient was discharged to [facility] with Kee catheter and plan for follow-up with Urology as outpatient for voiding trial.
Patient had postoperative A-Fib with RVR throughout his hospital course. His initial treatment consisted of IV amiodarone until he converted into a 2:1 Mobitz Type 1 with resolution at discontinuation of amiodarone infusion. Cardiology was consulted
in which patient did require PPM due to regaining intrinsic rhythm of NSR. On postoperative day 4, patient continued to have AF which was treated with IV amiodarone resulting in conversion to NSR. Patient was ultimately discharged on Amiodarone
200 mg daily and Metoprolol Succinate 25 mg BID. Discontinuation of Amiodarone should be considered upon follow-up appointment with Cardiology. DOAC was not initiated due to patients increased risk of bleeding, per Dr. Cartagena. Patient was initiated on
ASA 81 mg daily only on 10/10/25 with continuation upon discharge.
Patient endured increased serosanguineous drainage from sternotomy and thoracotomy incision in which Wound/Ostomy Care was consulted. Repeat CXR on 10/14/25 showed right pleural effusion. IR was consulted and patient underwent right thoracentesis
with 450 mL of serosanguineous pleural fluid drained. Following thoracentesis, wound vac was placed over sternotomy to assist in promotion of wound healing and drainage collection. Following thoracentesis and wound vac placement, minimal drainage
was collected. Increased wound drainage was suspected to be attributed to fluid shifts and pleural effusion. Removal of wound vac should be considered if output continues to be minimal to none while at [facility].
On postoperative day 15, patient was discharge to [facility] for further rehabilitation with recommendations as described as above.
Home medication changes:
- See list provided below
Discharge Plan
-
Patient Disposition: Acute Rehab Facility
Discharge Diagnosis/Procedures: Delayed hemorrhage 12 days post cardiac surgery- s/p Redo sternotomy; Washout and evacuation of approximately 1.5 L of clot from the left chest; Ligation of mammary vein and distal mammary stump; Ligation of large
vein towards the neck; Thorough evaluation of all bypass grafts 09/30/25
s/p Reexploration of chest, redo sternotomy, evacuation of large clot between the left lower lobe and the pericardium the left side, inspection of all surgical sites which were all hemostatic, packed with hemostatic agent, repair of chest wall, left
lateral thoracotomy connected to the sternotomy incision for visualization, thoracotomy repair 09/30/25
angiogram of thoracic aorta and L bronchial artery by IR, Dr. Andrade. Findings at angio suspicious for small volume contrast extravasation distal branch L bronchial artery. Secondary to size and tortuosity of the aorta, diminutive caliber and
tortuosity of L bronchial artery, attempts to advance a microcatheter into the L bronchial artery for embolization were unsuccessful.
s/p Anterior lateral thoracotomy, ligation of arterial vessel, cautery of raw surface and lung tissue for hemostasis, multiple rounds of packing and serial evaluations of all quadrants, application of topical hemostatic agents, reapproximated ribs
and closure thoracotomy
Condition: Good
Diet: Low Cholesterol and Low Sodium
Activity: No strenuous activity
Driving Restrictions: Not until seen by your Dr
Bathing Restrictions: OK to Shower
Other Services: Cardiac Rehab
Specialty Instructions: Weigh Daily- Call MD for wt gain/loss 3 lbs overnight/5 lbs in 1 week
Activity Restrictions/Additional Instructions:
ACTIVITY:
-No strenuous activity: no heavy lifting, pushing, pulling anything over 15 pounds for one month
-continue to use stairs as tolerated
DRIVING RESTRICTIONS:
-No driving for one month or until approved by your surgeon
WOUND CARE:
-Shower daily. Use soap & water.
-No lotions, creams or powders on incision area.
DIET:
-continue a low fat/low cholesterol diet.
-IF you are diabetic, continue carb controlled diet.
CARDIAC REHAB:
-Please make appointment to start in 5-6 weeks with your local hospital program. (See Cardiac Rehabilitation Discharge Booklet).
SPECIALTY INSTRUCTIONS:
-Weigh yourself daily. Call your physician for any weight gain/loss of 3 lbs overnight or 5 lbs in one week.
-REPORT any clicking noise or uneven appearance of your sternum to your surgeon immediately.
-If you smoke, you are instructed to quit. The [place] smoking hotline phone number is [phone]
Referrals:
[facility] [Other]
Gilbert Schilling MD [Active, Urology]
Referral Note: Please call [facility] to schedule an outpatient voiding trial 7-10 days AFTER your date of discharge.
If you are still at [facility] post-op, your catheter removal and voiding trial will be coordinated to be performed at rehab during your recovery.
Melody Varghese MD [Family Provider, Family Practice]
Shannan Fuller CRNP [Specified Professional Personl, Cardiac Surgery] - 11/21/25 9:30 am
Additional Discharge Medication Instructions: Ciprofloxacin to be completed on 10/18
Lasix has been increased to 40mg BID
Prescriptions:
New
cyclobenzaprine 10 mg Tablet
5 mg PO TID PRN (Reason: muscle spasm) Qty: 0 0RF
amiodarone [Pacerone] 200 mg Tablet
200 mg PO DAILY Qty: 0 0RF
ciprofloxacin HCl 500 mg Tablet
500 mg PO DAILY Qty: 4 0RF
potassium chloride [Klor-Con M20] 20 mEq Tablet,Er Particles/Crystals
20 meq PO DAILY Qty: 0 0RF
tamsulosin 0.4 mg Capsule
0.4 mg PO DAILY Qty: 0 0RF
metoprolol succinate 25 mg Tablet Extended Release 24 Hr
25 mg PO BID Qty: 0 0RF
oxycodone 5 mg Tablet
5 mg PO Q8HPRN PRN (Reason: moderate to severe pain) Qty: 10 0RF
loperamide 2 mg Capsule
2 mg PO Q4HPRN PRN (Reason: diarrhea) Qty: 0 0RF
pantoprazole 40 mg Tablet,Delayed Release (Dr/Ec)
40 mg PO DAILY Qty: 0 0RF
Lactobac/Bifidobac [Visbiome]
1 cap PO DAILY Qty: 0 0RF
furosemide 40 mg Tablet
40 mg PO BID Qty: 0 0RF
magnesium oxide 400 mg magnesium tablet
400 mg PO DAILY Qty: 90 0RF
Continued
multivitamin Tablet
1 tab PO DAILY
atorvastatin [Lipitor] 40 mg Tablet
40 mg PO HS
famotidine 40 mg Tablet
40 mg PO BID
finasteride 5 mg Tablet
5 mg PO HS
cholecalciferol (vitamin D3) [Vitamin D3] 50 mcg (2,000 unit) Tablet
50 mcg PO DAILY
Jardiance 10 mg Tablet
10 mg PO DAILY
acetaminophen 325 mg Tablet
650 mg PO Q6HPRN PRN (Reason: mild pain,headache,temp >101F ) Qty: 0 0RF
aspirin 81 mg Tablet,Chewable
81 mg PO DAILY Qty: 0 0RF
Discontinued
doxazosin 8 mg Tablet
8 mg PO HS
potassium chloride [Klor-Con M20] 20 mEq Tablet,Er Particles/Crystals
20 meq PO ONCE@2200 Qty: 10 0RF
bumetanide 2 mg tablet
2 mg PO DAILY
Rx Instructions:
Take for the next 10 days or until seen by cardiology
clopidogrel 75 mg tablet
75 mg PO DAILY
metoprolol succinate 25 mg tablet extended release 24 hr
12.5 mg PO BID
Discharge Orders:
Discharge Patient (As Directed); Ordered 10/15/25
Ordered By: Libby Keating
Care Plan Goals
Care Plan Goals:
Problem: Readiness for enhanced knowledge related to diagnosis and treatment plan
Goal: Understand your diagnosis and treatment plan needs, including medications if applicable.
Instructions: Know your diagnosis, underlying causes and treatment plan options, including medications if applicable. Consult with your health care team to learn about your diagnosis and treatment plan, including medications if applicable.
Discharge Date and Time
Print Language: LUXEMBOURGISH
--- NOTE | 2025-10-15 09:51 | W.PN.ID1 ---
Date of Service
Date of Service: October 15, 2025
Today's Communication
Continue antibiotics.
Assessment / Plan
Urinary retention s/p failed voiding trial with reinsertion of Kee catheter
- No evidence of UTI at present.
Leukocytosis
Hx CLL
Pseudomonas/Klebsiella from respiratory source
Renal insufficiency; improving
S/p recent CABG x 4 with delayed hemorrhage 12 days post SX requiring redo sternotomy and clot washout
Ischemic cardiomyopathy
- Chronic systolic CHF with reduced EF
- HTN/HLD
- BPH
Recommendations:
Continue with Cipro (d#12 abx). Would complete a 14-day course. Dosed adjusted for improving renal function.
Continue to monitor white count and temperature curve.
Monitor Cr. and est CrCl.
Continue supportive measures.
����������������������������������������������������������
Chief Complaint
-: Leukocytosis and Other (Pseudomonas bronchitis)
Subjective / Review of Systems
Review of Systems: No Fever and No Chills
Vital Signs / Physical Exam
Vital Signs
Vital Signs
Temp Pulse Resp BP Pulse Ox
98.6 F 76 20 115/72 97
10/15/25 08:00 10/15/25 09:00 10/15/25 08:00 10/15/25 08:17 10/15/25 09:44
Physical Exam
Constitutional: No Acute Distress, Comfortable and Non-toxic
Eyes: Sclera Anicteric
Cardiovascular: S1/S2; Negative S3/S4
Pulmonary: Non Labored; Negative Wheezes or Rales
Gastrointestinal: Soft and Non Tender
Genito-Urinary: Kee and Clear Urine; Negative Turbid Urine or Hematuria
Neurological: Awake and Alert
Psychological: Calm
Objective Data
Lab Data
Lab Results
10/15/25 03:26
10/15/25 03:26
PT 17.6 Sec (11.4-14.6) H 10/01/25 03:36
INR 1.42 10/01/25 03:36
APTT 33.5 Sec (23.4-35.0) 10/01/25 03:36
Estimated Creat Clear 46 ml/min 10/15/25 03:26
Lactic Acid 1.5 mmol/L (0.7-2.0) 10/07/25 03:56
Total Bilirubin 1.8 mg/dl (0.2-1.3) H 10/07/25 03:56
AST 35 U/L (17-59) 10/07/25 03:56
ALT 14 U/L (0-50) 10/07/25 03:56
Alkaline Phosphatase 93 U/L (38-126) 10/07/25 03:56
Most recent labs reviewed.
Micro Results:
10/11/25 09:20 Urine Culture - Final
Urine NO GROWTH
10/07/25 04:07 C. difficile GDH Antigen & Toxins - Final
Feces/Stool Negative for toxigenic C.difficile
10/02/25 09:27 Respiratory Culture - Final
Bronch Right Upper Lobe Pseudomonas aeruginosa
Klebsiella oxytoca
Gram Stain - Final
Imaging:
10/14/2025 CXR (2 view): similar appearance of the mild interstitial opacification which may represent edema or possible pneumonia. Small right pleural effusion. No pneumothorax noted.
10/12/2025 CXR (portable): moderate asymmetric ground glass opacity in the right upper lobe with the DDx being right upper lobe pneumonia versus asymmetric alveolar pulmonary edema. There is mild interstitial pulmonary edema throughout both lungs.
Mildly decreased bilateral lung volumes. Please see full dictation for additional detail.
Care Review
Plan reviewed with: Nurse
--- NOTE | 2025-10-15 10:00 | WOUNDNOTE ---
PAT RN: Followed up as requested for wound vac needs. CM notified that patient will need a wound vac at [facility] before transferred. Vac machine # [id number] in use. Mid upper chest with black foam in place, no leakage at 125mmhg. Will update [employer]
express site with wound vac information. Patient being transferred to [facility] today, will assist nurse Roseanne switching pump to [facility] vac machine #[id number] before discharge.
[2025-10-15 11:19] VITALS: BP 102/78
--- NOTE | 2025-10-15 12:32 | PTCARENOTE ---
Assessment unchanged; NSR on monitor and VSS; family at bedside; awaiting [facility].
--- NOTE | 2025-10-15 15:01 | PTCARENOTE ---
Report called to [facility]; IV and ekg monitor tech removed; pt transported via stretcher to [facility] with at bedside.
[2025-10-15 15:02] VITALS: BP 114/67
--- NOTE | 2025-10-15 16:10 | PN.CDI ---
CDI
- -
CDI:
Physician Documentation Request
Admit Date: 09/29/25 19:[address] Surgery,
Please review the following and provide your response in the progress notes.
Clinical Indicators:
- CT Surgery progress notes 'Chronic systolic CHF with reduced EF'
- 10/12 CXR 'Mild interstitial pulmonary edema throughout both lungs'
- proBNP 4700
- 10/10-10/13 40mg IV Lasix
- 10/14 right thoracentesis with 450 ml pleural fluid
Please clarify which of the following accurately represents the acuity of the HFrEF.
Acute on chronic HFrEF
Chronic HFrEF only
Other (please specify)
Use of terms such as suspected, likely, concern for, or probable (associated with a specific diagnosis that is being evaluated, monitored, or treated as if it exists) are acceptable and can be coded in the inpatient setting, when documented at the
time of discharge.
Thank you,
Yandel Fleming RN
CDI Specialist
Please use your independent medical judgment in providing your response.
--- NOTE | 2025-10-15 16:25 | W.PN.UPDATE ---
Update Note
Progress Note Update
CDI Query:
Acute on chronic HFrEF
== END 2025-10-15 15:59 | DRG 907 ==
LOC: CVICU 19:05
PROVIDERS: Clinical Nurse Specialist Acute Care; Internal Medicine Interventional Cardiology; Nurse Practitioner; Physician Assistant; Physician Assistant Medical; Radiology Vascular & Interventional Radiology; ADMITTING PHYSICIAN Thoracic Surgery (Cardiothoracic Vascular Surgery); CONSULT PHYSICIAN Internal Medicine; CONSULT PHYSICIAN Internal Medicine Infectious Disease; EMERGENCY PHYSICIAN Emergency Medicine; FAMILY PHYSICIAN Family Medicine; OTHER PHYSICIAN Internal Medicine Cardiovascular Disease
PROC: 30233N1 Transfusion of Nonautologous Red Blood Cells into Peripheral Vein, Percutaneous Approach (ICD-10-PCS; 2025-09-29)
PROC: 4A023N7 Measurement of Cardiac Sampling and Pressure, Left Heart, Percutaneous Approach (ICD-10-PCS; 2025-09-29)
PROC: 30233R1 Transfusion of Nonautologous Platelets into Peripheral Vein, Percutaneous Approach (ICD-10-PCS; 2025-09-29)
PROC: B2121ZZ Fluoroscopy of Single Coronary Artery Bypass Graft using Low Osmolar Contrast (ICD-10-PCS; 2025-09-29)
PROC: B3101ZZ Fluoroscopy of Thoracic Aorta using Low Osmolar Contrast (ICD-10-PCS; 2025-09-29)
PROC: B2111ZZ Fluoroscopy of Multiple Coronary Arteries using Low Osmolar Contrast (ICD-10-PCS; 2025-09-29)
PROC: B2181ZZ Fluoroscopy of Left Internal Mammary Bypass Graft using Low Osmolar Contrast (ICD-10-PCS; 2025-09-29)
PROC: 0WCD0ZZ Extirpation of Matter from Pericardial Cavity, Open Approach (ICD-10-PCS; 2025-09-30)
PROC: 30233K1 Transfusion of Nonautologous Frozen Plasma into Peripheral Vein, Percutaneous Approach (ICD-10-PCS; 2025-09-30)
PROC: 0WCC0ZZ Extirpation of Matter from Mediastinum, Open Approach (ICD-10-PCS; 2025-09-30)
PROC: 03LY0CZ Occlusion of Upper Artery with Extraluminal Device, Open Approach (ICD-10-PCS; 2025-09-30)
PROC: 05LY0ZZ Occlusion of Upper Vein, Open Approach (ICD-10-PCS; 2025-09-30)
PROC: 0BH17EZ Insertion of Endotracheal Airway into Trachea, Via Natural or Artificial Opening (ICD-10-PCS; 2025-10-01)
PROC: 5A1945Z Respiratory Ventilation, 24-96 Consecutive Hours (ICD-10-PCS; 2025-10-01)
PROC: 5A09357 Assistance with Respiratory Ventilation, Less than 24 Consecutive Hours, Continuous Positive Airway Pressure (ICD-10-PCS; 2025-10-01)
PROC: 0B9C8ZX Drainage of Right Upper Lung Lobe, Via Natural or Artificial Opening Endoscopic, Diagnostic (ICD-10-PCS; 2025-10-02)
PROC: B31L1ZZ Fluoroscopy of Intercostal and Bronchial Arteries using Low Osmolar Contrast (ICD-10-PCS; 2025-10-02)
PROC: 02HV33Z Insertion of Infusion Device into Superior Vena Cava, Percutaneous Approach (ICD-10-PCS; 2025-10-02)
PROC: 0W993ZZ Drainage of Right Pleural Cavity, Percutaneous Approach (ICD-10-PCS; 2025-10-14)
DX: I97.611 Postprocedural hemorrhage of a circulatory system organ or structure following cardiac bypass (principal); I50.23 Acute on chronic systolic (congestive) heart failure; R57.8 Other shock; J95.821 Acute postprocedural respiratory failure; J15.1 Pneumonia due to Pseudomonas; J94.2 Hemothorax; C91.10 Chronic lymphocytic leukemia of B-cell type not having achieved remission; I31.39 Other pericardial effusion (noninflammatory); D62 Acute posthemorrhagic anemia; E87.29 Other acidosis; J91.8 Pleural effusion in other conditions classified elsewhere; I47.29 Other ventricular tachycardia; J95.89 Other postprocedural complications and disorders of respiratory system, not elsewhere classified; E87.0 Hyperosmolality and hypernatremia; R04.89 Hemorrhage from other sites in respiratory passages; K52.1 Toxic gastroenteritis and colitis; N17.9 Acute kidney failure, unspecified; I13.0 Hypertensive heart and chronic kidney disease with heart failure and stage 1 through stage 4 chronic kidney disease, or unspecified chronic kidney disease; R33.8 Other retention of urine; D69.6 Thrombocytopenia, unspecified; I25.5 Ischemic cardiomyopathy; Y83.2 Surgical operation with anastomosis, bypass or graft as the cause of abnormal reaction of the patient, or of later complication, without mention of misadventure at the time of the procedure; I48.0 Paroxysmal atrial fibrillation; E86.1 Hypovolemia; E87.6 Hypokalemia; Y83.8 Other surgical procedures as the cause of abnormal reaction of the patient, or of later complication, without mention of misadventure at the time of the procedure; T36.8X5A Adverse effect of other systemic antibiotics, initial encounter; N18.9 Chronic kidney disease, unspecified; E78.00 Pure hypercholesterolemia, unspecified; G47.33 Obstructive sleep apnea (adult) (pediatric); I44.7 Left bundle-branch block, unspecified; N40.1 Benign prostatic hyperplasia with lower urinary tract symptoms; I25.10 Atherosclerotic heart disease of native coronary artery without angina pectoris; K21.9 Gastro-esophageal reflux disease without esophagitis; F32.A Depression, unspecified; D45 Polycythemia vera; F41.9 Anxiety disorder, unspecified; Z87.891 Personal history of nicotine dependence; Z95.1 Presence of aortocoronary bypass graft
CPT/HCPCS: 32505; 32555; 39000; 71045; 71046; 71275; 74174; 76604; 76937; 80048; 80053; 80076; 81003; 81015; 82248; 82330; 82565; 82805; 82810; 82947; 82962; 83605; 83735; 83880; 84132; 84134; 84145; 84302; 84478; 84484; 84520; 85014; 85018; 85025; 85027; 85049; 85384; 85610; 85730; 86850; 86900; 86901; 86920; 86927; 87070; 87077; 87086; 87186; 87205; 87324; 87449; 93005; 93308; 93321; 93325; 93459; 94002; 94003; 94640; 94660; 96374; 96375; 96376; 97110; 97116; 97163; 97167; 97530; 97535; 99291; C1713; C1760; C1769; C1887; C1894; J0282; J1250; J1939; J2916; J7189; P9016; P9045; P9047; P9059; P9073; Q9967

== ENCOUNTER 2025-10-24 07:49 | Emergency (ER) | payer MEDICARE, OTHER, SELFPAY ==
[2025-10-24 07:55] VITALS: BP 125/71
[2025-10-24 08:51] VITALS: BMI 27.9
--- NOTE | 2025-10-24 08:57 | ED.GENMED ---
History of Present Illness
General
Chief Complaint: Urinary Symptoms
Time Seen by Provider: 10/24/25 08:37
History of Present Illness
History of Present Illness:
Eyad is an 80-year-old male with recent heart surgery, urinary retention requiring Kee catheter that was removed approximately 1 week ago who presented to the ER from [facility] today after nurses BladderScan him this morning for greater than
500 but were unable to straight cath, subsequent bladder scan was completed and showed last 350 in the bladder. Due to to the discrepancy he was sent to the ER for evaluation. Patient does not feel that he needs to void. No urinary symptoms. No
fevers, chills. Denies any abdominal pain.
Phy Exam
General Physical Exam
General Presentation: well appearing and no apparent distress
General Skin: warm and dry
General Habitus: normal
General Mental: alert
General Hydration: appears well hydrated
ENT Exam
ENT Exam: EOMI, pharynx normal, neck supple and normocephalic
Eye Exam
Eye Exam: PERRL, cornea clear and conjunctiva normal
Cardiovascular Exam
Cardiovascular Exam: regular rate/rhythm, no edema, no murmur and normal peripheral pulses
Pulmonary Exam
Pulmonary Exam: lungs clear, no respiratory distress, no rales, no crackles, no rhonchi, no stridor, no wheezing and no cough
Gastrointestinal Exam
Gastrointestinal Exam: normal bowel sounds, non tender, soft, no organomegaly, no pulsatile mass and non distended
Neurological Exam
Neurological Exam: alert, oriented x3, no motor deficits and speech normal
Musculoskeletal Exam
Musculoskeletal Exam: full ROM and no edema
Skin Exam
Skin Exam: normal color, warm/dry, no rash and no petechia
Psychiatric Exam
Psychiatric Exam: normal mood/affect
Course
Orders/Labs/Results
Orders:
Orders
10/24/25 08:50
US Bladder [US Urinary Bladder Only] Urgent
Comment:
Reason For Exam: inconsistent bedside bladder scans, ?retention
Vital Signs
Initial and Last Documented VS:
Initial Vital Signs
Temp Pulse Resp BP Pulse Ox
36.6 C 79 16 125/71 98
10/24/25 07:55 10/24/25 07:55 10/24/25 07:55 10/24/25 07:55 10/24/25 07:55
Last Documented Vital Signs
Temp Pulse Resp BP Pulse Ox
36.6 C 79 16 125/71 98
10/24/25 07:55 10/24/25 07:55 10/24/25 07:55 10/24/25 07:55 10/24/25 09:01
MDM/Problems Addressed
Differential Diagnosis Includes:
Bedside bladder scan performed by RN shows less than 100 mL within the bladder. Given ongoing discrepancies between bladder scans, ultrasound was obtained that shows bladder distended bladder with 52 mL, chronic BPH noted. Discussed these findings
with the patient. Not concerning for any acute urinary retention as he was able to void this morning. Will discharge him back to [facility]. Return precautions discussed. If there is concern for ongoing urinary retention would recommend urology
evaluation.
*Pulse Oximetry
SaO2: 98
Oxygen Mode of Delivery: Room air
Patient hypoxic: no
*Critical Care Note
Total Time (30-74mins, 75-104mins- exclusive of procedures): Not Applicable
ED Attending Note
-
Portions of this chart may have been created with voice recognition software.� Occasional wrong word or��sound alike� substitutions may have occurred due to the inherent limitations of voice recognition software.
Discharge Plan
Departure
Patient Disposition: Home (Routine Discharge)
Date of Disposition: 10/24/25
Time of Disposition: 12:51
Patient with high blood pressure during this ER visit?: No
Discharge Problem:
Urinary retention
Prescriptions:
No Action
multivitamin Tablet
1 tab PO DAILY
atorvastatin [Lipitor] 40 mg Tablet
40 mg PO HS
famotidine 40 mg Tablet
40 mg PO BID
finasteride 5 mg Tablet
5 mg PO HS
cholecalciferol (vitamin D3) [Vitamin D3] 50 mcg (2,000 unit) Tablet
50 mcg PO DAILY
Jardiance 10 mg Tablet
10 mg PO DAILY
acetaminophen 325 mg Tablet
650 mg PO Q6HPRN PRN (Reason: mild pain,headache,temp >101F ) Qty: 0 0RF
aspirin 81 mg Tablet,Chewable
81 mg PO DAILY Qty: 0 0RF
cyclobenzaprine 10 mg Tablet
5 mg PO TID PRN (Reason: muscle spasm) Qty: 0 0RF
amiodarone [Pacerone] 200 mg Tablet
200 mg PO DAILY Qty: 0 0RF
ciprofloxacin HCl 500 mg Tablet
500 mg PO DAILY Qty: 4 0RF
potassium chloride [Klor-Con M20] 20 mEq Tablet,Er Particles/Crystals
20 meq PO DAILY Qty: 0 0RF
tamsulosin 0.4 mg Capsule
0.4 mg PO DAILY Qty: 0 0RF
metoprolol succinate 25 mg Tablet Extended Release 24 Hr
25 mg PO BID Qty: 0 0RF
oxycodone 5 mg Tablet
5 mg PO Q8HPRN PRN (Reason: moderate to severe pain) Qty: 10 0RF
loperamide 2 mg Capsule
2 mg PO Q4HPRN PRN (Reason: diarrhea) Qty: 0 0RF
pantoprazole 40 mg Tablet,Delayed Release (Dr/Ec)
40 mg PO DAILY Qty: 0 0RF
Lactobac/Bifidobac [Visbiome]
1 cap PO DAILY Qty: 0 0RF
furosemide 40 mg Tablet
40 mg PO BID Qty: 0 0RF
magnesium oxide 400 mg magnesium tablet
400 mg PO DAILY Qty: 90 0RF
Referrals:
Melody Varghese MD [Family Provider, Family Practice]
Activity Restrictions/Additional Instructions:
Bladder scan and formal ultrasound completed in the ER show no urinary retention or postvoid residual.
Interventions
Interventions:
*Risk Screen - Suicide Last Done: 10/24/25 07:55
*General Assessment Last Done: 10/24/25 07:55
*Neglect/Abuse Screening Last Done: 10/24/25 07:55
*ED COVID-19 Vaccine History Last Done: 10/24/25 07:55
*ED Influenza Vaccine History Last Done: 10/24/25 07:55
[facility] Fall Risk Assessment Tool Last Done: 10/24/25 08:51
ED-Male Genitourinary Assessment Last Done: 10/24/25 08:51
Discharge Date and Time
Print Language: LUXEMBOURGISH
[2025-10-24 10:00] VITALS: BP 124/80
--- NOTE | 2025-10-24 13:27 | EDRN ---
Report given to VARGHESE Sifuentes at [facility]. Patient taken back to his room 314 on stretcher by aerospace physiological technician.
[2025-10-24 13:28] VITALS: BP 126/82
== END 2025-10-24 13:25 | disposition home or self-care (01) ==
LOC: EMR 07:49
PROVIDERS: EMERGENCY PHYSICIAN Emergency Medicine; FAMILY PHYSICIAN Family Medicine
DX: N40.1 Benign prostatic hyperplasia with lower urinary tract symptoms (principal); R33.8 Other retention of urine; Z79.82 Long term (current) use of aspirin
CPT/HCPCS: 99284; 76857

== ENCOUNTER 2025-10-28 09:56 | Outpatient (REF) | payer MEDICARE, OTHER, SELFPAY | END 2025-10-28 23:59 | disposition home or self-care (01) | LOC: WOUND 09:56 | PROVIDERS: ATTENDING PHYSICIAN Registered Nurse; FAMILY PHYSICIAN Family Medicine | DX: L89.150 Pressure ulcer of sacral region, unstageable (principal); T81.11XA Postprocedural cardiogenic shock, initial encounter; I11.0 Hypertensive heart disease with heart failure | CPT/HCPCS: 97597; 99204 ==

== ENCOUNTER 2025-11-09 05:06 | Inpatient (IN) | payer MEDICARE, OTHER, SELFPAY ==
[2025-11-09] VITALS (15 sets, daily range): BP systolic 61–146; BP diastolic 61–95; BMI 27.6
--- NOTE | 2025-11-09 05:03 | HPS.HSE ---
Family Physician
-
Family Physician: INTERVIEWE UNKNOWN - PT NOT
Chief Complaint
-
Chest redness, Weakness
History of Present Illness
Patient is an 80y M with PMH significant for ASCVD, CLL, hypertension and recent complicated medical history s/p CABG who presents to in transfer from [facility] for evaluation of L chest wall pain, redness and discharge. Patient initially underwent
CABG x 4 on 09/17. He returned to the ED with delayed hemorrhage presenting as near-syncope and hypotension on 09/30. He underwent re-do sternotomy x 2, IR angio and anterior / lateral L thoracotomy with bronchial artery ligation on 09/30 for
control of bleeding / hemostasis. He had a wound vac in place for a time. Patient received 13 units of PRBCs, 2 units of FFP and 4 units of platelets during that hospital stay. He was ultimately discharged to [facility] on 10/15. He was
discharged from [facility] on 10/31 and has been receiving home PT / VN / etc since that time.
Patient was initially doing very well; however, noted that he seemed more fatigued / weak over the past few days. He was noted to have some scant drainage from the L chest incision. noted on 11/07 that there was some localized redness
over the breast. VN evaluated the patient Tuesday AM and recommended that he present to the ED for further evaluation.
Patient presented to [facility] ED where arrangements were made for his transfer to given his recent history, surgeries, etc.
Medical History
Past Medical History
Past Medical History: Reports Other
Additional Past Medical History:
ASCVD
Hypertension
Paroxysmal Atrial Fibrillation
Ischemic Cardiomyopathy, Chronic HFrEF (35%)
CKD III
CLL
Polycythemia vera
GERD
Spinal Stenosis
BPH
Past Surgical History: Reports Other
Additional Past Surgical History:
CABG x 4 (09/17)
Re-do Sternotomy with Mammary Vein Ligation / Evacuation of Hematoma (09/30)
Re-do Sternotomy with Hematoma Evacuation (09/30)
Anterior Lateral Thoracotomy with Bronchial Artery Ligation (09/30)
PTCA with Stent
Cholecystectomy
Carpal Tunnel Release
Hernia Repair
Cataracts
Social History
Tobacco: Former Smoker (Quit smoking in 1980s.)
Alcohol: Occasional
Drug: None
Personal:
Living: With Family
Family History
Family History: Not pertinent
Allergies / Home Medications
Allergies reflects when Allergies were last updated in [employer].
Home Medications with original date entered in [employer]
Allergy/Medication List:
Allergies
Allergy/AdvReac Type Severity Reaction Status Date / Time
ticlopidine (From Ticlid) Allergy MYALGIA Verified 10/24/25 07:58
meperidine (From Demerol) AdvReac Nausea Verified 10/24/25 07:58
Home Medications
atorvastatin 40 mg tablet (Lipitor) 40 mg PO HS High Cholesterol 08/30/25
cholecalciferol (vitamin D3) 50 mcg (2,000 unit) tablet (Vitamin D3) 50 mcg PO DAILY Supplement 08/30/25
empagliflozin 10 mg tablet (Jardiance) 10 mg PO DAILY Heart Failure 08/30/25
finasteride 5 mg tablet 5 mg PO HS bph 08/30/25
multivitamin 1 tab PO DAILY Supplement 08/30/25
aspirin 81 mg chewable tablet 81 mg PO DAILY Blood clot prevention/tx #0 tabs 09/22/25
magnesium oxide 400 mg PO DAILY Electrolyte Repletion #90 tabs 10/15/25
amiodarone 200 mg tablet (Pacerone) 200 mg PO DAILY Arrhythmia 30 days #30 tabs 10/30/25
collagenase clostridium histo. 250 unit/gram topical ointment (Santyl) 1 applic topical DAILY Skin issues 30 days #1 container 10/30/25
docusate sodium 100 mg capsule 100 mg PO BID Constipation 30 days #60 caps 10/30/25
metoprolol succinate 25 mg tablet,extended release 24 hr 25 mg PO DAILY@2000 Blood pressure 3 days #30 tabs 10/30/25
tamsulosin 0.4 mg capsule 0.8 mg (2 x 0.4 mg) PO DAILY urinary retention 30 days #60 caps 10/30/25
famotidine 40 mg tablet 40 mg PO BID Gastrointestinal Issue 11/09/25
furosemide 40 mg tablet 40 mg PO DAILY Fluid retention/Swelling 11/09/25
potassium chloride 20 mEq tablet,extended release(part/cryst) (Klor-Con M) 10 meq PO DAILY Electrolyte Repletion 11/09/25
Review of Systems
-
History Source: Patient
A 12 point ROS was completed and negative except as noted: Yes
Constitutional: Reports Fatigue; Denies Fever or Chills
EENT: Denies Sore Throat
Respiratory: Reports Cough and Trouble Breathing; Denies Hemoptysis
Cardiac: Reports Chest Pain (pain with lying on L side.); Denies Diaphoresis
Abdomen/GI: Denies Abdominal Pain, Nausea, Vomiting or Diarrhea
: Denies Dysuria or Frequency
Musculoskeletal: Denies Joint Pain or Edema
Neurological: Denies Dizzy or Headache
Physical Exam
Physical Exam
General: Other (80y M in no acute distress.)
HEENT: Moist mucous membranes and PERRLA
Respiratory: Other (Rales on the L. Decreased BS at both bases. No wheezing / rhonchi.)
Cardiac: S1/S2, Regular Rhythm and Other (Sternotomy site healing well. No active drainage appreciated from any incisions. L breast prominence / deformity - ? post-op change v inflammatory. Mild overlying erythema L lateral breast area. No focal
tenderness.); No Murmur
GI: Soft, Non Tender, Non Distended and Normal Bowel Sounds
Musculoskeletal: No Clubbing, No Cyanosis and No Edema
Neuro: AO x 3
Impression/Plan
-
A/P: Patient is an 80y M with PMH significant for ASCVD, PA-Fib, hypertension and recent CABG with delayed post-op hemorrhage who presents to from [facility] in transfer for evaluation of L chest wall discomfort, redness, etc.
Left Chest Wall Cellulitis +/- Abscess
s/p L Thoracotomy, Sternotomy x 3 total, etc
- Admit for further evaluation and treatment.
- Data from [facility] reviewed.
- CT scan shows 8 x 3 x 6 cm collection in the L pectoral muscle tracking to skin - ? post-op seroma, hematoma but cannot rule out abscess.
- Continue IV vancomycin for now.
- ? fluid drainage / sampling by CT Surgery versus IR.
- Adjust abx (or discontinue) based on culture data.
- Follow for fever, increased pain / drainage, etc.
- CT Surgery evaluation for additional recommendations.
Acute on Chronic HFrEF
- LVEF 20-40% on recent evaluation(s).
- Imaging and exam suggest pulmonary edema - L > R.
- Lasix 60mg daily has since been decreased to 40mg daily.
- Change to IV dosing daily for now and follow I/Os, daily weights, etc.
- Continue Jardiance.
- Small bilateral effusions also noted on imaging.
- Cardiology evaluation for additional recommendations.
- Follow for clinical improvement.
ASCVD
Post-Op Hemorrhage - Delayed
- Stable. Hemodynamically stable, Hgb stable from recent visits.
- Continue current CV med regimen and follow for any new symptoms / complaints.
Paroxysmal Atrial Fibrillation
- Stable. Continue amiodarone, Toprol.
- Not on OAC - defer to Cardiology given recent bleeding issues, etc.
? RUE Thrombus
- CTA from [facility] shows filling defects in the RUE circulation (brachial - subclavian) suggestive of non-occlusive thrombus.
- May also represent mixing artifact.
- Check RUE Doppler for clarification.
Benign Hypertension
- Stable. Continue current regimen with holding parameters.
BPH
- Stable. Continue finasteride and tamsulosin.
- Bladder scan protocol.
CLL
- Stable. Variable WBC noted. Labs from [facility] show WBC = 12.7 which is in his chronic / typical range.
- Follow for changes in cell counts.
GERD
- Stable. Continue H2 celestina.
DVT Prophylaxis: Lovenox for now.
Code Status: Full
[2025-11-09 05:39] LABS: Hematocrit 41.2 % (39.0-52.0); Hemoglobin 13.1 g/dL (13.0-18.0); Mean Corp Hgb Conc. 31.8 g/dL (33.0-37.0); Mean Corpuscular Volume 92.0 fL (80.0-94.0); Platelet Count 279 10^3/uL (130-400); Red Cell Dist. Width 16.2 % (11.5-14.5)
[2025-11-09 06:02] LABS: Blood Urea Nitrogen 23 mg/dl (9-20); Calcium 9.2 mg/dl (8.4-10.2); Carbon Dioxide 30 mmol/L (22-30); Chloride 104 mmol/L (98-107); Estimated Creatinine Clearance 55 ml/min; Glucose 85 mg/dl (70-99); Magnesium 2.3 mg/dl (1.6-2.3); Potassium 4.1 mmol/L (3.5-5.1); Sodium 138 mmol/L (135-145); eGFR > 60.00
[2025-11-09] MEDS: VANCOCIN 530 MG IV (06:09)
[2025-11-09 06:17] LABS: Troponin I 0.044 ng/ml
--- NOTE | 2025-11-09 07:12 | W.PN.HOSP.TC ---
Today's Communication/Plan
-
chest tube as per IR
cont abx
diuresis as per Cardio
PT/OT
ativan prn agitation/anxiety/sleep
Assessment / Plan
Assessment / Plan
Physical Exam
General: no acute distress resting comfortably in bed
HEENT: Moist mucous membranes and PERRLA
Respiratory: Decreased BS at both bases Right>Left
Cardiac: S1/S2, Regular Rhythm, Sternotomy site healing well. No active drainage appreciated from any incisions. L breast prominence / deformity with associate Mild overlying erythema L lateral breast area. No focal tenderness
GI: Soft, Non Tender, Non Distended and Normal Bowel Sounds
Musculoskeletal: No Clubbing, No Cyanosis and No Edema
Neuro/psych: AO x 3 conversant coherent more agitated as day progressed conversations sometimes circular
A/P: Patient is an 80y M with PMH significant for ASCVD, PA-Fib, hypertension and recent CABG with delayed post-op hemorrhage who presents to from [facility] in transfer for evaluation of L chest wall discomfort, redness, etc.
Left Chest Wall Cellulitis +/- Abscess vs Seroma
s/p L Thoracotomy, Sternotomy x 3 total
CXR noted Large Right pleural effusion, moderate left pleural effusion
- Admit for further evaluation and treatment.
- Data from [facility] reviewed.
- CT scan showed 8 x 3 x 6 cm collection in the L pectoral muscle tracking to skin possible post-op seroma, hematoma but cannot rule out abscess.
- Continue IV vancomycin for now.
- CT eval appreciated
- IR eval appreciated right chest tube placed 11/09 and left fluid collection/possible seroma aspirated
- follow cultures fluid study results
-pain control prn Tylenol Oxycodone, Morphine severe breakthrough pain
Acute on Chronic HFrEF
- Nov ECHO appreciated EF 40-45%
- Lasix 60mg daily had since been decreased to 40mg daily.
- Continue Jardiance.
- b/l pleural effusions as noted on imaging
- Cardiology eval appreciated cont IV Lasix 40 mg daily
- daily weights I/O
Acute Hypoxia likely d/t pleural effusions possibly d/t heart failure
-wean O2 supplementation as tolerated
-3L weaned off to room air
ASCVD
Post-Op Hemorrhage - Delayed
- Stable. Hemodynamically stable, Hgb stable from recent visits.
- Continue current CV med regimen and follow for any new symptoms / complaints.
Paroxysmal Atrial Fibrillation
- Stable. Continue amiodarone, Toprol.
- Not on OAC - defer to Cardiology given recent bleeding issues, etc
RUE Thrombus
- CTA from [facility] shows filling defects in the RUE circulation (brachial - subclavian) suggestive of non-occlusive thrombus.
- Venous Duplex confirms RUE DVT
- started on Hep gtt 11/09, post chest tube placement, no bolus given concerns prior hx bleeding issues
AMS/progressive agitation likely 2/2 poor sleep suspect Hospital Associate Delirium
-ativan prn
-restraints prn to protect lines chest tube
Benign Hypertension
- Stable. Continue current regimen with holding parameters.
BPH
- Stable. Continue finasteride and tamsulosin.
- Bladder scan protocol.
CLL
- Stable. Variable WBC noted. Labs from [facility] show WBC = 12.7 which is in his chronic / typical range.
- Follow for changes in cell counts.
GERD
- Stable. Continue H2 celestina.
DVT Prophylaxis: Lovenox for now.
Code Status: Full
Discussed with patient, patient's Harriet RN, CT surgery, IR, Cardiology
I spent a total of 60 minutes with the patient or on the floor. More than 50% of this time involved counseling and coordination of care.
Anticipated Discharge: > 48 hours
Subjective/Interval History
-
Date of Service: November 09, 2025
No acute distress, resting comfortably in bed. Patient became more agitated and confused as day progressed. Redirectable to an extent. Pat present during evaluation.
Objective Data
-
Labs:
Laboratory Results
11/09/25
05:24
WBC 12.6 H
Hgb 13.1
Hct 41.2
Plt Count 279
Sodium 138
Potassium 4.1
Chloride 104
Carbon Dioxide 30
BUN 23 H
Creatinine 1.0
Glucose 85
Calcium 9.2
Vital Signs:
Vital Signs
Temp Pulse Resp BP Pulse Ox
97.6 F 97 19 146/78 92
11/09/25 04:30 11/09/25 04:30 11/09/25 04:30 11/09/25 04:30 11/09/25 06:32
I&O
11/08/25 11/09/25 11/10/25
06:59 06:59 06:59
Intake Total 630 / 630
Output Total 100 / 100
Balance 530 / 530
--- NOTE | 2025-11-09 07:28 | CONSULT.CT ---
Consultation
-
Date/Time Consultation Requested: 11/09/25
Date/Time Consultation Performed: 11/09/25
Performing Provider: Bertha Martínez PA-C for Dr. Qing Jones
Reason for Consultation: incisional drainage and redness
Patient History
Physicians
Family Physician: Melody Varghese
Outpatient Family Psychologist: Jarrod Alcazar
Inpatient Family Psychologist: JESSICA
History of Present Illness
Mr. Hackett is an 80-year-old male very well-known to the CT surgery service who underwent an elective CABG x 4 with 5.5 Impella placement on September 17 with a relatively uncomplicated initial postoperative stay who then returned on 09/30 with a
delayed bronchial artery bleed into the left chest with multiple surgical explorations during that time. He eventually was discharged to [facility] where he has continued to improve, he was just discharged to home on 10/31. Since he has been home
patient has been getting a little more short of breath and a little more lethargic per his , Harriet, who has been very involved in his care throughout this entire ordeal. She also noted some drainage from his anterior left chest wound at home and
redness over his left pec. CT PE study was completed at [facility] which demonstrated no pulmonary embolus but a large right pleural effusion and moderate left pleural effusion as well as a fluid collection in the left anterior chest wall, likely
seroma. IV cefepime and vancomycin were started at [facility] for suspected cellulitis of the left chest. Patient was then transferred to [facility] for admission due to his recent complicated stay here.
When Dr. Jones and I saw the patient for evaluation he was resting comfortably in bed with no complaints of pain but noted some palpitations and intermittent awareness of pulsatility in his left chest. He denies fevers or chills. Patient was on
the stretcher to go to ultrasound to evaluate for DVT of his right upper extremity.
Past Medical History
Past Medical History: Other
Multivessel coronary artery disease with history of MN/multiple PCIs and subsequent CABG x 4 (VASQUEZ-LAD, SVG-Dx-OM(off VASQUEZ), SVG-RPDA) with planned Impella 5.5 on 09/17/2025
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
Chronic ischemic cardiomyopathy with most recent EF 40-45% on 09/23/2025
Chronic heart failure with reduced EF
Recurrent pleural effusions
CLL with chronically elevated white count and thrombocytopenia
Hypertension
Hyperlipidemia
BPH with recent episodes of acute urinary retention in postoperative periods
Paroxysmal atrial fibrillation, not on oral anticoagulation due to recent bleeding complications
Past Surgical History
Past Surgical History: Other
09/17/2025 CABG x 4 with Impella 5.5
09/29/2025 redo sternotomy with evacuation of clot and exploration for bleeding
09/30/2025 reexploration of mediastinum with additional left anterior thoracotomy
09/30/2025 recurrent hemorrage and posterolateral thoracotomy with evacuation of clot & ligation of bronchial artery
History of cholecystectomy
History of hernia repair
Carpal tunnel release
Family History
Mother: N/A
Father: N/A
Social History
Alcohol: None
Tobacco: Former Smoker
Personal:
Living: With Spouse
Allergies
Allergy/AdvReac Type Severity Reaction Status Date / Time
ticlopidine (From Ticlid) Allergy MYALGIA Verified 10/24/25 07:58
meperidine (From Demerol) AdvReac Nausea Verified 10/24/25 07:58
Home Medications
�Medication �Instructions �Recorded �Confirmed �Type
atorvastatin 40 mg tablet (Lipitor) 40 mg PO HS High Cholesterol 08/30/25 11/09/25 History
cholecalciferol (vitamin D3) 50 50 mcg PO DAILY Supplement 08/30/25 11/09/25 History
mcg (2,000 unit) tablet (Vitamin
D3)
empagliflozin 10 mg tablet 10 mg PO DAILY Heart Failure 08/30/25 11/09/25 History
(Jardiance)
finasteride 5 mg tablet 5 mg PO HS bph 08/30/25 11/09/25 History
multivitamin 1 tab PO DAILY Supplement 08/30/25 11/09/25 History
aspirin 81 mg chewable tablet 81 mg PO DAILY Blood clot 09/22/25 11/09/25 Rx
prevention/tx #0 tabs
magnesium oxide 400 mg PO DAILY Electrolyte 10/15/25 11/09/25 Rx
Repletion #90 tabs
amiodarone 200 mg tablet (Pacerone) 200 mg PO DAILY Arrhythmia 30 days 10/30/25 11/09/25 Rx
#30 tabs
collagenase clostridium histo. 250 1 applic topical DAILY Skin issues 10/30/25 11/09/25 Rx
unit/gram topical ointment (Santyl) 30 days #1 container
docusate sodium 100 mg capsule 100 mg PO BID Constipation 30 days 10/30/25 11/09/25 Rx
#60 caps
metoprolol succinate 25 mg 25 mg PO DAILY@2000 Blood pressure 10/30/25 11/09/25 Rx
tablet,extended release 24 hr 3 days #30 tabs
tamsulosin 0.4 mg capsule 0.8 mg (2 x 0.4 mg) PO DAILY 10/30/25 11/09/25 Rx
urinary retention 30 days #60 caps
famotidine 40 mg tablet 40 mg PO BID Gastrointestinal Issue 11/09/25 11/09/25 History
furosemide 40 mg tablet 40 mg PO DAILY Fluid 11/09/25 11/09/25 History
retention/Swelling
potassium chloride 20 mEq 10 meq PO DAILY Electrolyte 11/09/25 11/09/25 History
tablet,extended Repletion
release(part/cryst) (Klor-Con M)
Review of Systems
-
History Source: Patient and Family
General: Reports Fatigue; Denies Fever or Chills
HEENT: Reports No Symptoms
Respiratory: Reports SOB, WELCH and Cough
Cardiac: Reports Palpitations; Denies Chest Pain, Diaphoresis or Edema
Abdomen/GI: Reports No Symptoms
: Reports No Symptoms
Musculoskeletal: Reports No Symptoms
Skin: Reports No Symptoms
Neurological: Reports No Symptoms
Physical Exam
Vital Signs
Temp 97.6 F 11/09/25 04:30
Temp route: Oral 11/09/25 04:30
Pulse 97 11/09/25 04:30
Rhythm: Normal sinus rhythm 11/09/25 04:30
With- PAC's, PVC's Monomorphic, Atrial fibrillation 11/09/25 04:30
Resp Rate 19 11/09/25 04:30
Blood pressure 146/78 11/09/25 04:30
Blood pressure extremity used: Left upper arm 11/09/25 04:30
Position: Lying 11/09/25 04:30
SaO2 92 11/09/25 06:32
Nasal Cannula flow liters per minute 3 11/09/25 06:32
Can the patient verbally communicate their pain? Yes 11/09/25 05:32
Pain scale ratin 11/09/25 05:32
Actual Weight 82.384 kg 11/09/25 06:00
Body Mass Index (BMI) 27.6 11/09/25 06:00
Labs
11/09/25 05:24
11/09/25 05:24
Troponin I 0.044 ng/ml H* 11/09/25 05:24
Exam
General: No Apparent Distress
HEENT: Normocephalic
Respiratory: Negative Accessory Muscle Use
Cardiac: Regular Rhythm and Other (median sternotomy site healing well; left anterior thoracotomy without drainage on exam, incision is c/d/i, mild redness lateral pec region, no tenderness to palpation, but +fluctuance present; L posterolateral
thoracotomy c/d/i)
Rectal: Deferred by Provider
Skin: Warm and Dry
Neuro: Nonfocal/Grossly Intact
Extremities: Lower Level Edema
Psych: Calm
Assessment / Plan
-
Left anterior chest wall fluid collection, likely seroma
Discussed with CT attendings and hospitalist, recommend consult to interventional radiology for aspiration of fluid collection with cultures
Antibiotics per medicine team
Large right pleural effusion
Recommend consultation to interventional radiology for large bore chest drain
Moderate to large left pleural effusion, consider thoracentesis with IR after after above procedures
Acute on chronic heart failure, Agree with gentle diuresis, cardiology following
Right upper extremity thrombus noted on CT chest, confirmed DVT with dedicated ultrasound
Discussed with Drs. Cartagena and Karen, okay for full anticoagulation after above IR procedures have been completed due to patient's recent multiple bleeding complications
Data Reviewed
-
EKG: Report Reviewed by me
CT Scan: Image Personally Visualized and interpreted, Report Reviewed by me and Discussed with Physician
Ultrasound: Report Reviewed by me
Labs: Labs Reviewed by me and Discussed with Physician
Old Records: Reviewed
--- NOTE | 2025-11-09 07:32 | PHA.VAN.IN ---
Assessment
- Assessment
Renal Function: Appears similar to baseline
Renal Function may be Overestimated due to: age
AUC Dosing Plan
- Dosing Variables
Dosing Weight (kg): 82.384
Dosing CrCl (ml/min): 55
Vd coefficient (L/kg): 0.7
- Empiric Dosing
Initial / Loading Dose: 1500mg
Maintenance Regimen: 1500mg q24h
Estimated AUC (mcg*h/mL): 539
Estimated Peak (mcg*h/mL): 37.2
Estimated Trough (mcg/ml): 12.1
Estimated Half Life (H): 13.8
- Monitoring
No levels ordered at this time: consider at steady state
Pharmacokinetics Vancomycin I
- -
Patient Age: 80
Patient Sex: Male
Vancomycin Day #: 1
Indication: Skin And Soft Tissue
Requesting Provider: Dr. Atkinson
Height / Weight:
Height 5 ft 8 in
Actual Weight 82.384 kg
IBW in k.4
- Vital Signs / Lab Results
Temp Pulse Resp BP Pulse Ox
97.6 F 97 19 146/78 92
11/09/25 04:30 11/09/25 04:30 11/09/25 04:30 11/09/25 04:30 11/09/25 06:32
Lab Results - Hematology
11/09/25
05:24
WBC 12.6 H
Lab Results - Chemistry
11/09/25
05:24
BUN 23 H
Creatinine 1.0
Estimated Creat Clear 55
--- NOTE | 2025-11-09 08:29 | CON.CAR ---
Consultation
Consultation Request
Date/Time Consultation Requested: November 09, 2025
Date/Time Consultation Performed: November 09, 2025
Requesting Provider: Dr. Atkinson
Performing Provider: Dr. Donohue
Reason for Consultation: CABG, CM, eval HF
Medical History
-
Chief Complaint: near syncope with falls/weakness/SOB
History of Present Illness:
He has hx of CABG x 4 [VASQUEZ�LAD, SVG�PDA, SVG�DX�OM] with Dr. Cartagena on September 17, 2025 with complicated course including acute on chronic renal insufficiency, urinary retention, need for Impella support, ischemic CM with EF 40%, with readmission
with near syncope and hemorrhage Sep 29-Oct 15 2025 taken back to OR multiple times with bleeding including redo sternotomies on Sep 30 2:30 AM and 4:45 PM, IR procedure Sep 30 for bronchial artery bleed and anterior lateral thoracotomy with ligation
of arterial vessel Sep 30 10:47PM. He had a wound vac placed and received a total of 13 units PRBCs 2 units of FFP and 4 units platelets during his hospital stay. He was discharged to [facility] Oct 15 and discharged from there on Oct 31. He was seen
by VN and there was concern for drainage from 2 chest wall sites as well as anterior chest edema and he was sent to [facility] ED and transferred to . His states he has been getting more lethargic over the last 2 days as well after having had more
energy. In ER he was found to have chest wall findings concerning for possible cellulitis +/- abscess. He was started on IV abx. CT surgery and cardiology are consulted. He was started on IV lasix 40 mg daily in the ER. His wt overall has been
stable at home at 177. His wt is close to his d/c wt. He denies chest pain. He has some mild dyspnea.
He follows with Dr. Paez with [facility]. Additionally, he has a history of hypertension, hyperlipidemia, BPH with urinary retention, CLL with chronic thrombocytopenia, and sleep apnea.
Past Medical History:
CABG x 4 [VASQUEZ�LAD, SVG�PDA, SVG�DX�OM] with placement of a 5.5 Impella 09/17/[address] Cartagena
Multiple redo sternotomies 09/30/2025 with ligation of bronchial artery bleed
Status post LAD stents 2002, 2005, 2019; Triple-vessel coronary disease including in-stent restenosis of prior LAD stents by cath 08/21/25
Ischemic cardiomyopathy, EF 15 to 2 preop; post op 40-45%
Chronic heart failure with reduced EF
Mild to moderate MR
Sick sinus syndrome
Hypertension
Hyperlipidemia
SYDNI
Polycythemia vera
Chronic thrombocytopenia
Spinal stenosis
GERD
Depression/anxiety
BPH, Postop urinary retention with Adler catheter
Past Medical History
Past Medical History: Other (See HPI)
Past Surgical History: Other (Reviewed in [facility])
Social History
Tobacco: Non-Smoker
Alcohol: None
Drug: None
Personal:
Living: With Family
Employment: Retired
Family History
Family History: Reviewed & Not Pertinent
Allergies / Home Medications
Allergy/AdvReac Type Severity Reaction Status Date / Time
ticlopidine (From Ticlid) Allergy MYALGIA Verified 10/24/25 07:58
meperidine (From Demerol) AdvReac Nausea Verified 10/24/25 07:58
�Medication �Instructions �Recorded �Confirmed �Type
atorvastatin 40 mg tablet (Lipitor) 40 mg PO HS High Cholesterol 08/30/25 11/09/25 History
cholecalciferol (vitamin D3) 50 50 mcg PO DAILY Supplement 08/30/25 11/09/25 History
mcg (2,000 unit) tablet (Vitamin
D3)
empagliflozin 10 mg tablet 10 mg PO DAILY Heart Failure 08/30/25 11/09/25 History
(Jardiance)
finasteride 5 mg tablet 5 mg PO HS bph 08/30/25 11/09/25 History
multivitamin 1 tab PO DAILY Supplement 08/30/25 11/09/25 History
aspirin 81 mg chewable tablet 81 mg PO DAILY Blood clot 09/22/25 11/09/25 Rx
prevention/tx #0 tabs
magnesium oxide 400 mg PO DAILY Electrolyte 10/15/25 11/09/25 Rx
Repletion #90 tabs
amiodarone 200 mg tablet (Pacerone) 200 mg PO DAILY Arrhythmia 30 days 10/30/25 11/09/25 Rx
#30 tabs
collagenase clostridium histo. 250 1 applic topical DAILY Skin issues 10/30/25 11/09/25 Rx
unit/gram topical ointment (Santyl) 30 days #1 container
docusate sodium 100 mg capsule 100 mg PO BID Constipation 30 days 10/30/25 11/09/25 Rx
#60 caps
metoprolol succinate 25 mg 25 mg PO DAILY@2000 Blood pressure 10/30/25 11/09/25 Rx
tablet,extended release 24 hr 3 days #30 tabs
tamsulosin 0.4 mg capsule 0.8 mg (2 x 0.4 mg) PO DAILY 10/30/25 11/09/25 Rx
urinary retention 30 days #60 caps
famotidine 40 mg tablet 40 mg PO BID Gastrointestinal Issue 11/09/25 11/09/25 History
furosemide 40 mg tablet 40 mg PO DAILY Fluid 11/09/25 11/09/25 History
retention/Swelling
potassium chloride 20 mEq 10 meq PO DAILY Electrolyte 11/09/25 11/09/25 History
tablet,extended Repletion
release(part/cryst) (Klor-Con M)
Review of Systems
-
History Source: Patient
All other systems: Negative unless noted
Constitutional: Fatigue
Skin: Other (erythema left chest and drainage from incision site anterior chest )
Physical Exam
Vital Signs
Temp Pulse Resp BP Pulse Ox
97.7 F 97 19 146/78 92
11/09/25 08:21 11/09/25 04:30 11/09/25 04:30 11/09/25 04:30 11/09/25 06:32
Physical examination:
General: No acute distress, AAOX3
Neck: Negative JVD
Heart: Regular, Negative S3 positive S1/S2, Negative S4, No murmur
Thorax: edema of left breast with erythema
Lungs: CTA b/l, negative wheezes/rales/rhonchi
Abd: Positive BS, NT/ND, neg rebound/rigidity/guarding
Ext: Negative cyanosis/clubbing/edema
Neuro: nonfocal
Lab Results
11/09/25 05:24
11/09/25 05:24
Troponin I 0.044 ng/ml H* 11/09/25 05:24
Impression / Plan
-
.
Primary production dispatcher: Dr. Paez of [facility] [place]
Impression:
Possible anterior chest wall cellulitis +/- abscess with drainage
Leukocytosis
Possible RUE thrombus
Acute on chronic HF
Ischemic CM with EF 40-45%
Recent CABG x 4 [VASQUEZ�LAD, SVG�PDA, SVG�DX�OM] with placement of a 5.5 Impella 09/17/[address] Cartagena
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
s/p Redo sternotomy; Washout and evacuation of approximately 1.5 L of clot from the left chest; Ligation of mammary vein and distal mammary stump; Ligation of large vein towards the neck; Thorough evaluation of all bypass grafts by Dr Cartagena on
09/30/25 at 2:30am
s/p Reexploration of chest, redo sternotomy, evacuation of large clot between the left lower lobe and the pericardium the left side, inspection of all surgical sites which were all hemostatic, packed with hemostatic agent, repair of chest wall,
left lateral thoracotomy connected to the sternotomy incision for visualization, thoracotomy repair by Dr. Cartagena on 09/30/25 at 4:45 pm
s/p angiogram of thoracic aorta and L bronchial artery by IR, Dr. Andrade. Findings at angio suspicious for small volume contrast extravasation distal branch L bronchial artery. Secondary to size and tortuosity of the aorta, diminutive caliber and
tortuosity of L bronchial artery, attempts to advance a microcatheter into the L bronchial artery for embolization were unsuccessful. No immediate procedural complications.
s/p Anterior lateral thoracotomy, ligation of arterial vessel, cautery of raw surface and lung tissue for hemostasis, multiple rounds of packing and serial evaluations of all quadrants, application of topical hemostatic agents, reapproximated ribs
and closure thoracotomy by Dr. Cartagena on 09/30/25 at 10:47 pm
Postop anemia with acute blood loss requiring multiple transfusions [13 units packed red blood cells, 2 units FFP, 4 pools platelets]
NSVT, ventricular bigeminy
Paroxysmal atrial fibrillation
Ischemic cardiomyopathy with preoperative ejection fraction 15 to 20% and postoperative ejection fraction 40%
History of BPH with postoperative urinary retention requiring Adler catheter
Hypertension
Hyperlipidemia
SYDNI
Polycythemia vera
CLL with chronic thrombocytopenia
Spinal stenosis
GERD
Depression/anxiety
Echo Sep 23 2025: EF 40-45% no significant valve disease
Limited Sep 29 2025 : EF 40-45%
Urgent left cath Sep 29 2025: Widely patent grafts with no obvious source of bleeding.
Plan:
HR and bp currently stable on current regimen
He does not appear to be significantly volume overloaded, continue IV lasix 40 mg daily for now with likely transition back to oral lasix next 24-48 hrs.
Monitor Is and Os and daily wts and cr. Cr stable.
Consider echo prior to d/c
Sinus with PACs on recent EKG. QTc stable.
Hx PAFib, continue Amiodarone and ASA. He is not currently an anticoagulation candidate per CT surgery.
Cont Toprol
Eval and tx of chest wall cellutliltis +/- abscess as per CT surgery and primary service.
Try to avoid adler given hx urinary retention.
Eval of possible RUE thrombus as per primary service.
Follow H/H with recent hemorrhage
PT/OT
Discussed with nursing, primary service and at bedside.
HPI: He has hx of CABG x 4 [VASQUEZ�LAD, SVG�PDA, SVG�DX�OM] with Dr. Cartagena on September 17, 2025 with complicated course including acute on chronic renal insufficiency, urinary retention, need for Impella support, ischemic CM with EF 40%, with
readmission with near syncope and hemorrhage Sep 29-Oct 15 2025 taken back to OR multiple times with bleeding including redo sternotomies on Sep 30 2:30 AM and 4:45 PM, IR procedure Sep 30 for bronchial artery bleed and anterior lateral thoracotomy
with ligation of arterial vessel Sep 30 10:47PM. He had a wound vac placed and received a total of 13 units PRBCs 2 units of FFP and 4 units platelets during his hospital stay. He was discharged to [facility] Oct 15 and discharged from there on Oct
. He was seen by VN and there was concern for drainage from 2 chest wall sites as well as anterior chest edema and he was sent to [facility] ED and transferred to . His states he has been getting more lethargic over the last 2 days as well after
having had more energy. In ER he was found to have chest wall findings concerning for possible cellulitis +/- abscess. He was started on IV abx. CT surgery and cardiology are consulted. He was started on IV lasix 40 mg daily in the ER. His wt
overall has been stable at home at 177. His wt is close to his d/c wt. He denies chest pain. He has some mild dyspnea.
He follows with Dr. Paez with [facility]. Additionally, he has a history of hypertension, hyperlipidemia, BPH with urinary retention, CLL with chronic thrombocytopenia, and sleep apnea.
Data Reviewed
-
EKG: Tracing Personally Visualized and interpreted
Radiology: Image Personally Visualized and interpreted
Medical Tests (Nuc Med, Echo etc): Report Reviewed by me
Labs: Labs Reviewed by me
Old Records: Reviewed
[2025-11-09] MEDS: LASIX 40 MG IV (09:09)
[2025-11-09] MEDS: COLACE 100 MG PO (09:10)
[2025-11-09] MEDS: LOW STRENGTH ASPIRIN 81 MG PO (09:10)
[2025-11-09] MEDS: PEPCID 40 MG PO (09:10)
[2025-11-09] MEDS: FARXIGA PO (09:11)
[2025-11-09] MEDS: FLOMAX 0.8 MG PO (09:11)
[2025-11-09] MEDS: KCL 10 MEQ PO (09:11)
[2025-11-09] MEDS: PACERONE 200 MG PO (09:12)
[2025-11-09] MEDS: FARXIGA 10 MG PO (09:34)
[2025-11-09] MEDS: SANTYL OINTMENT 1 APPLIC TOPICAL (09:35)
[2025-11-09] MEDS: VISBIOME 1 CAP PO (11:27)
[2025-11-09 11:40] LABS: Troponin I 0.043 ng/ml
--- NOTE | 2025-11-09 14:56 | PTCARENOTE ---
Patient with DVT in Rt Upper extremity. RUE precautions implemented
[2025-11-09] MEDS: ATIVAN 0.25 MG IV (15:17)
[2025-11-09] MEDS: NSS (PRESERVATIVE FREE) 0.125 ML IV (15:17)
--- NOTE | 2025-11-09 15:50 | PTCARENOTE ---
patient became agitated and increased confusion after being told he will need a chest tube and left breast area drained. Pt's not here at the time and upon her return he was confused to why he could not take a shower and trying to climb out of
bed and get to shower. Pt did cooperate and stay in bed while Dr. Olvera explained treatment plan to and patient. At conclusion of plan review -pt is agreeable and is agreeable to proceed with IRAD procedures. Pt also agreeable to ativan to
help with the anxiety, IV given and pt calmer and resting quietly. remains at bedside ands will accompany pt to procedure to consent.
--- NOTE | 2025-11-09 16:19 | PTCARENOTE ---
Pt report provided to Tonja KWONG and then pt transported to [facility] via bed by 2 staff members and accompanied pt.
--- NOTE | 2025-11-09 17:09 | W.PN.UPDATE ---
Update Note
Progress Note Update
Right chest tube 14 Fr placed, yielding 1100 cc serous fluid.
Left chest wall collection aspirated, yielding 110 cc serous fluid.
Patient tolerated well.
[2025-11-09 18:00] LABS: Body Fluid Second Tech FB
--- NOTE | 2025-11-09 18:41 | PTCARENOTE ---
Patient transported back to room via bed by 2 staff members. He is alert, confused and agitated, trying to climb OOB. Chest tube site rt CDI, no air leak noted chest tube drainage canister full at 2500 changed to new canister. Left breast area
bandaid CDI, breast area less firm. Bilateral wrist restraints applied. is here and aware of plan for wrist restraints and staff continue reorientation process. Pt on room air with pulse ox 94%
[2025-11-09] MEDS: HEPARIN 25000 UNITS/250 ML IV (18:54)
--- NOTE | 2025-11-09 19:01 | PTCARENOTE ---
Patient settled into bed, wrist restraints initiated, pt falling asleep with eay resp at 222, pulse ox is 94%
[2025-11-09 19:15] LABS: APTT 31.7 Sec (23.4-35.0)
--- NOTE | 2025-11-09 19:28 | PTCARENOTE ---
Patient settled into bed, wrist restraints initiated, pt falling asleep with easy resp at 22, pulse ox is 94%, provided with emotional support and staff answering questions as indicated, she will stay the night here
[2025-11-09] MEDS: MORPHINE SULFATE 2 MG IV (19:55)
[2025-11-09] MEDS: FLUSH (NSS) 2 FLUSH IV (19:55)
[2025-11-09] MEDS: ATIVAN 0.5 MG IV (21:24)
[2025-11-09] MEDS: PROSCAR PO (21:28)
[2025-11-09] MEDS: COLACE PO (21:28)
[2025-11-09] MEDS: LIPITOR PO (21:28)
[2025-11-09] MEDS: PEPCID PO (21:28)
--- NOTE | 2025-11-09 22:18 | PTCARENOTE ---
Pt received at beginning of shift resting in bed. Agitated. Confused. Attempting to get oob with B/L soft limb wrist restraints on and all four side rails up. Pt yells out 'get out of my f'n house!' Attempts made to reorient pt without good result.
Pt admits to right chest pain. Medicated with Morphine as ordered with good pain relief. Agitated intermittently and medicated with prn Ativan as ordered with good relief. New right chest CT tube in place dressing c/d/i without crepitus or drainage
at site. Red to orange drainage in Ct tubing and collection container. Container replaced at beginning of shift d/t being full with drainage. CT to wall suction -20cm without air leak. Left breast band aid c/d/i. Heparin gtt initiated at beginning
of shift at 15ml/hr. PTT obtained. Next PTT at 0100. SR on CM rate low 100's. RR's 24-28. POX 95%. CC placed. Unable to take PO's at this time d/t confusion and unable to follow directions and agitation. Rest of assessment as documented.
sleeping over in waiting room. Pt maintained on Q2hr turns. Will continue to monitor.
[2025-11-10] VITALS (17 sets, daily range): BP systolic 56–131; BP diastolic 37–92; BMI 26.0
[2025-11-10 01:20] LABS: Hematocrit 39.2 % (39.0-52.0); Hemoglobin 12.7 g/dL (13.0-18.0)
[2025-11-10 02:16] LABS: APTT 59.4 Sec (23.4-35.0)
[2025-11-10] MEDS: VANCOCIN 530 MG IV (05:10)
[2025-11-10] MEDS: FLUSH (NSS) 1 FLUSH IV (05:11)
--- NOTE | 2025-11-10 07:58 | W.PN.HOSP.TC ---
Today's Communication/Plan
-
chest tube mgmt as per CTS IR
diuresis as per Cardio
cont abx for now
cont hep gtt
monitor H&H, transfuse if Hgb<8
Assessment / Plan
Assessment / Plan
Physical Exam
General: no acute distress resting comfortably in bed
HEENT: Moist mucous membranes and PERRLA
Respiratory: clear to auscultation b/l right sided chest tube present
Cardiac: S1/S2, Regular Rhythm, Sternotomy site healing well. No active drainage appreciated from any incisions. L breast prominence / deformity with associate Mild overlying erythema L lateral breast area. No focal tenderness
GI: Soft, Non Tender, Non Distended and Normal Bowel Sounds
Musculoskeletal: No Clubbing, No Cyanosis and No Edema
Neuro/psych: AO x 3 conversant coherent calm cooperative
A/P: Patient is an 80y M with PMH significant for ASCVD, PA-Fib, hypertension and recent CABG with delayed post-op hemorrhage who presents to from [facility] in transfer for evaluation of L chest wall discomfort, redness, etc.
Left Chest Wall Cellulitis +/- Abscess vs Seroma
s/p L Thoracotomy, Sternotomy x 3 total
CXR noted Large Right pleural effusion, moderate left pleural effusion
- Admit for further evaluation and treatment.
- Data from [facility] reviewed.
- CT scan showed 8 x 3 x 6 cm collection in the L pectoral muscle tracking to skin possible post-op seroma, hematoma but cannot rule out abscess.
- Continue IV vancomycin for now.
- CT eval appreciated
- IR eval appreciated right chest tube placed 11/09 and left fluid collection/possible seroma aspirated
- follow cultures fluid study results so far not suggestive infection
-pain control prn Tylenol Oxycodone, Morphine severe breakthrough pain
Acute on Chronic HFrEF
- Nov ECHO appreciated EF 40-45%
- Lasix 60mg daily had since been decreased to 40mg daily.
- Continue Jardiance.
- b/l pleural effusions as noted on imaging
- Cardiology eval appreciated cont IV Lasix 40 mg daily
- daily weights I/O
Acute Hypoxia likely d/t pleural effusions possibly d/t heart failure
-wean O2 supplementation as tolerated
-3L weaned off to room air
ASCVD
Post-Op Hemorrhage - Delayed
- Stable. Hemodynamically stable, Hgb stable from recent visits.
- Continue current CV med regimen and follow for any new symptoms / complaints.
Paroxysmal Atrial Fibrillation
- Stable. Continue amiodarone, Toprol.
- on hep gtt as below
RUE Thrombus
- CTA from [facility] shows filling defects in the RUE circulation (brachial - subclavian) suggestive of non-occlusive thrombus.
- Venous Duplex confirms RUE DVT
- started on Hep gtt 11/09, post chest tube placement, no bolus given concerns prior hx bleeding issues
AMS/progressive agitation likely 2/2 poor sleep suspect [facility] Delirium
-ativan prn
-restraints prn to protect lines chest tube
-mental status since improved/baseline
Benign Hypertension
- Stable. Continue current regimen with holding parameters.
BPH
- Stable. Continue finasteride and tamsulosin.
- Bladder scan protocol.
CLL
- Stable
- monitor
GERD
- Stable. Continue H2 celestina.
DVT Prophylaxis: hep gtt.
Code Status: Full
Discussed with patient and patient's Pat
I spent a total of 45 minutes with the patient or on the floor. More than 50% of this time involved counseling and coordination of care.
Anticipated Discharge: > 48 hours
Subjective/Interval History
-
Date of Service: November 10, 2025
No acute distress, AOx3 conversant and coherent, overnight events noted confusion agitation required IV ativan. Patient calm and cooperative at this time. Pat present during evaluation.
Objective Data
-
Labs:
Laboratory Results
11/10/25 11/10/25 11/10/25
01:00 06:00 08:30
WBC Pending
Hgb 12.7 L Pending
Hct 39.2 Pending
Plt Count Pending
APTT 59.4 H Pending
Sodium Pending
Potassium Pending
Chloride Pending
Carbon Dioxide Pending
BUN Pending
Creatinine Pending
Glucose Pending
Calcium Pending
Vital Signs:
Vital Signs
Temp Pulse Resp BP Pulse Ox
98.1 F 96 31 128/83 96
11/10/25 07:45 11/10/25 04:45 11/10/25 04:45 11/10/25 02:00 11/10/25 03:00
I&O
11/09/25 11/10/25 11/11/25
06:59 06:59 06:59
Intake Total 630 / 630 920 / 920
Output Total 100 / 100 3350 / 3350
Balance 530 / 530 -2430 / -2430
--- NOTE | 2025-11-10 08:09 | PTCARENOTE ---
Pt resting at intervals, arouses easily, confused to time. Angry verbal responses from pt towards staff providing care. Pt provided with explanation and encouragement regarding am assessment and care. Plan of care also reviewed with who is at
bedside. Pt awake and she fed him a yogurt, no coughing or aspiration noted. resp shallow and even on 3 L nc and pulso ox 97%. Chest dressing CDI, assessment documented, drainage was red in color 11/09 but is now yellow. Condom cath intact for tk
urine.
--- NOTE | 2025-11-10 09:00 | CM ---
Initial assessment completed. Patient is an 80y M with PMH significant for ASCVD, CLL, hypertension and recent complicated medical history s/p CABG who presents to in transfer from [facility] for evaluation of L chest wall pain, redness and discharge.
Patient resides w/ spouse in a single story home in a [place] community. No steps. Patient ambulates w/ RW, spouse assists w/ bathing and dressing. Patient able to self feed. Patient has grab bars, shower chair and bed rails. Patient recently discharged
from [place]. Wound care at [place] once a week.
Address, point of contact and insurance verified
PCP: Melody Varghese
Pharmacy: [facility] [place]
Plan: CM will cont to follow for d/c planning
[2025-11-10] MEDS: PACERONE 200 MG PO (09:01)
[2025-11-10] MEDS: FARXIGA 10 MG PO (09:01)
[2025-11-10] MEDS: COLACE 100 MG PO ×2 (09:01→19:45)
[2025-11-10] MEDS: SANTYL OINTMENT 1 APPLIC TOPICAL (09:01)
[2025-11-10] MEDS: LOW STRENGTH ASPIRIN 81 MG PO (09:02)
[2025-11-10] MEDS: PEPCID 40 MG PO ×2 (09:02→19:45)
[2025-11-10] MEDS: LASIX 40 MG IV (09:02)
[2025-11-10] MEDS: VISBIOME 1 CAP PO (09:02)
[2025-11-10] MEDS: KCL 10 MEQ PO (09:02)
[2025-11-10] MEDS: HEPARIN 25000 UNITS/250 ML IV (09:37)
[2025-11-10] MEDS: FLOMAX 0.8 MG PO (09:40)
[2025-11-10 10:05] LABS: Hematocrit 40.1 % (39.0-52.0); Hemoglobin 12.6 g/dL (13.0-18.0); Mean Corp Hgb Conc. 31.4 g/dL (33.0-37.0); Mean Corpuscular Volume 94.6 fL (80.0-94.0); Platelet Count 300 10^3/uL (130-400); Red Cell Dist. Width 16.1 % (11.5-14.5)
[2025-11-10 10:40] LABS: Blood Urea Nitrogen 26 mg/dl (9-20); Calcium 8.8 mg/dl (8.4-10.2); Carbon Dioxide 31 mmol/L (22-30); Chloride 104 mmol/L (98-107); Estimated Creatinine Clearance 50 ml/min; Glucose 119 mg/dl (70-99); Magnesium 2.3 mg/dl (1.6-2.3); Potassium 4.1 mmol/L (3.5-5.1); Sodium 136 mmol/L (135-145); eGFR > 60.00
[2025-11-10 10:45] LABS: APTT 184.3 Sec (23.4-35.0)
--- NOTE | 2025-11-10 10:52 | PHA.VAN.FU ---
Vancomycin Assessment / Plan
- Assessment
Renal Function: SCR Increasing
WBC's are: Trending Up
In the past 24 hrs, patient has been: Afebrile
- Dosing Plan
Adjust Regimen to: 1250MG Q24H
- Monitoring Plan
No level(s) ordered at this time: [facility]
- Follow Up
Pharmacy will continue to follow.
Vancomycin Follow UP
- -
Patient Age: 80
Patient Sex: Male
Vancomycin Day #: 2
Indication: Skin And Soft Tissue
Requesting Provider: Dr. Atkinson
Height / Weight:
Height 5 ft 8 in
Actual Weight 77.5 kg
IBW in k.4
- Vital Signs / Lab Results
Temp Pulse Resp BP Pulse Ox
98.1 F 96 31 130/78 96
11/10/25 07:45 11/10/25 09:02 11/10/25 04:45 11/10/25 09:02 11/10/25 03:00
Lab Results - Hematology
11/09/25 11/10/25
05:24 09:50
WBC 12.6 H 14.6 H
Lab Results - Chemistry
11/09/25 11/10/25
05:24 09:50
BUN 23 H 26 H
Creatinine 1.0 1.1
Estimated Creat Clear 55 50
--- NOTE | 2025-11-10 12:04 | W.PN.UPDATE ---
Update Note
Progress Note Update
Patient seen with Dr. Jones. Patient's , Harriet, at bedside. Pt got his R chest tube completed by IR yesterday afternoon with 2500cc out initially & 150 more overnight. Patient reports improvement in his breathing. Left anterior chest collection
also aspirated by IR, all cultures are pending right now. Would continue to keep chest tube in on -20 suction until drainage slows down. Continue aggressive IS to re-expand his right lung. Pt required restraints overnight due to some agitation. He
is very calm and oriented now, hopefully these will be able to come off so he can participate in more PT/OT. OK for chest tube to come off suction for ambulation/toileting. We will continue to follow along.
--- NOTE | 2025-11-10 14:53 | W.PN.CARDCBS ---
Today's Communication / Plan
-
Continue IV diuresis with tentative plan to transition to oral in the next 24 to 48 hours
Impression / Plan
-
.
Primary binder layer: Dr. Paez of [facility] [place]
Impression:
Possible anterior chest wall cellulitis +/- abscess with drainage
Leukocytosis
Possible RUE thrombus
Acute on chronic HF
Ischemic CM with EF 40-45%
Recent CABG x 4 [VASQUEZ�LAD, SVG�PDA, SVG�DX�OM] with placement of a 5.5 Impella 09/17/[address] Cartagena
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
s/p Redo sternotomy; Washout and evacuation of approximately 1.5 L of clot from the left chest; Ligation of mammary vein and distal mammary stump; Ligation of large vein towards the neck; Thorough evaluation of all bypass grafts by Dr Cartagena on
09/30/25 at 2:30am
s/p Reexploration of chest, redo sternotomy, evacuation of large clot between the left lower lobe and the pericardium the left side, inspection of all surgical sites which were all hemostatic, packed with hemostatic agent, repair of chest wall,
left lateral thoracotomy connected to the sternotomy incision for visualization, thoracotomy repair by Dr. Cartagena on 09/30/25 at 4:45 pm
s/p angiogram of thoracic aorta and L bronchial artery by IR, Dr. Andrade. Findings at angio suspicious for small volume contrast extravasation distal branch L bronchial artery. Secondary to size and tortuosity of the aorta, diminutive caliber and
tortuosity of L bronchial artery, attempts to advance a microcatheter into the L bronchial artery for embolization were unsuccessful. No immediate procedural complications.
s/p Anterior lateral thoracotomy, ligation of arterial vessel, cautery of raw surface and lung tissue for hemostasis, multiple rounds of packing and serial evaluations of all quadrants, application of topical hemostatic agents, reapproximated ribs
and closure thoracotomy by Dr. Cartagena on 09/30/25 at 10:47 pm
Postop anemia with acute blood loss requiring multiple transfusions [13 units packed red blood cells, 2 units FFP, 4 pools platelets]
NSVT, ventricular bigeminy
Paroxysmal atrial fibrillation
Ischemic cardiomyopathy with preoperative ejection fraction 15 to 20% and postoperative ejection fraction 40%
History of BPH with postoperative urinary retention requiring Kee catheter
Hypertension
Hyperlipidemia
SYDNI
Polycythemia vera
CLL with chronic thrombocytopenia
Spinal stenosis
GERD
Depression/anxiety
Echo Sep 23 2025: EF 40-45% no significant valve disease
Limited Sep 29 2025 : EF 40-45%
Urgent left cath Sep 29 2025: Widely patent grafts with no obvious source of bleeding.
Plan:
He does not appear to be significantly volume overloaded, continue IV lasix 40 mg daily for now with likely transition back to oral lasix next 24-48 hrs.
Monitor Is and Os and daily wts and cr. Cr stable.
IR chest tube remains in place since 11/09. Initially with serous fluid.
Treatment of RUE DVT per primary service.
Eval and tx of chest wall cellutliltis +/- abscess as per CT surgery and primary service.
Sinus with PACs on recent EKG. QTc stable.
Hx PAFib, continue Amiodarone and ASA. He is not currently an anticoagulation candidate per CT surgery.
Cont Toprol
Discussed with at bedside
HPI: He has hx of CABG x 4 [VASQUEZ�LAD, SVG�PDA, SVG�DX�OM] with Dr. Cartagena on September 17, 2025 with complicated course including acute on chronic renal insufficiency, urinary retention, need for Impella support, ischemic CM with EF 40%, with
readmission with near syncope and hemorrhage Sep 29-Oct 15 2025 taken back to OR multiple times with bleeding including redo sternotomies on Sep 30 2:30 AM and 4:45 PM, IR procedure Sep 30 for bronchial artery bleed and anterior lateral thoracotomy
with ligation of arterial vessel Sep 30 10:47PM. He had a wound vac placed and received a total of 13 units PRBCs 2 units of FFP and 4 units platelets during his hospital stay. He was discharged to [facility] Dec 2 and discharged from there on Dec
18. He was seen by [facility] and there was concern for drainage from 2 chest wall sites as well as anterior chest edema and he was sent to [facility] ED and transferred to . His states he has been getting more lethargic over the last 2 days as well after
having had more energy. In ER he was found to have chest wall findings concerning for possible cellulitis +/- abscess. He was started on IV abx. CT surgery and cardiology are consulted. He was started on IV lasix 40 mg daily in the ER. His wt
overall has been stable at home at 177. His wt is close to his d/c wt. He denies chest pain. He has some mild dyspnea.
He follows with Dr. Paez with [facility]. Additionally, he has a history of hypertension, hyperlipidemia, BPH with urinary retention, CLL with chronic thrombocytopenia, and sleep apnea.
Progress Note - [employer]
Subjective
Date of Service: November 10, 2025
Some agitation overnight requiring restraints. Calm this morning. No cardiac complaints.
Objective
Labs:
11/10/25 09:50
11/10/25 09:50
Labs
Hgb 12.6 g/dL (13.0-18.0) L 11/10/25 09:50
Hct 40.1 % (39.0-52.0) 11/10/25 09:50
Plt Count 300 10^3/uL (130-400) 11/10/25 09:50
APTT 184.3 Sec (23.4-35.0) H* 11/10/25 09:50
Sodium 136 mmol/L (135-145) 11/10/25 09:50
Potassium 4.1 mmol/L (3.5-5.1) 11/10/25 09:50
BUN 26 mg/dl (9-20) H 11/10/25 09:50
Creatinine 1.1 mg/dL (0.7-1.3) 11/10/25 09:50
Glucose 119 mg/dl (70-99) H 11/10/25 09:50
Troponins
11/09/25 11/09/25 11/09/25
05:24 11:06 17:00
Troponin I 0.044 H* 0.043 H* Cancelled
Vital Signs and I&O:
Vital Signs
Temp Pulse Resp BP Pulse Ox
97.5 F 96 31 130/78 96
11/10/25 11:25 11/10/25 09:02 11/10/25 04:45 11/10/25 09:02 11/10/25 03:00
Vital Signs
Temp Pulse Resp BP Pulse Ox
97.5 F 96 31 130/78 96
11/10/25 11:25 11/10/25 09:02 11/10/25 04:45 11/10/25 09:02 11/10/25 03:00
Intake & Output
11/08/25 11/09/25 11/10/25 11/11/25
06:59 06:59 06:59 06:59
Intake Total 630 / 630 920 / 920 240 / 240
Output Total 100 / 100 3350 / 3350 800 / 800
Balance 530 / 530 -2430 / -2430 -560 / -560
Physical Exam
Physical Exam
Gen: NAD, AA, restrained
HEENT: NC/AT, sclera anicteric
Neck: No JVD
CV: RRR, NL s1/s2
Lungs: CTA, chest tube in place
Abd: S/ND
Ext: No LE edema
Skin: Warm, dry
Psych: Calm
[2025-11-10] MEDS: TOPROL XL 25 MG PO (15:18)
--- NOTE | 2025-11-10 15:23 | PTCARENOTE ---
Patients heart rate A fib to 140s with activity, pt denies feeling any symptoms of this rate. PM dose of metoprolol yesterday, restarting now.
[2025-11-10 19:07] LABS: APTT > 200 Sec (23.4-35.0)
--- NOTE | 2025-11-10 19:38 | PTCARENOTE ---
patient cognition returned to baseline and he is alert and oriented x3 by late morning. Restraints removed and pt compliant and not attempting to get OOB or remove tubes. Pt tolerating chest tube without complaints. Resp rate even and reg on 2 L NC
this afternoon, pulse ox 96%. Left breast area that was drained yesterday appears more swollen as the day progresses. Dr. Olvera notified. Left breast area after the drainage on 11/09 with flat, soft and without firmness. today the area is slightly
firm and red, no drainage. Bladder- 11/09 there was inconsistency in pt bladder volumes and bladder scan results, US ordered by and awaiting results. Pt has voided clear yellow urine with use of Condom cath in place. No BMs today. Appetite has
improved. Pt tolerated OOB in chair x 3 hours and was able to ambulate on along side of bed when heart rate elevated to 140s. Upon rest and po. metoprolol given heart rate now in 90s.
[2025-11-10 19:39] LABS: Hematocrit 34.5 % (39.0-52.0); Hemoglobin 10.9 g/dL (13.0-18.0)
[2025-11-10] MEDS: LIPITOR 40 MG PO (19:45)
[2025-11-10] MEDS: PROSCAR 5 MG PO (19:45)
[2025-11-10] MEDS: TYLENOL 650 MG PO (19:50)
--- NOTE | 2025-11-10 23:07 | PTCARENOTE ---
assumed care of patient. pt is AAOx3, forgetful at times, bed alarm on. VSS. on 2L NC 98%. right lateral chest tube intact, draining serosang fluid. no complaints of pain. condom cath intact draining yellow urine. pt able to take pills whole with
water without issues. care ongoing.
[2025-11-11] VITALS (19 sets, daily range): BP systolic 81–125; BP diastolic 57–87; PULSE 85–98; O2SAT 98; BMI 27.1; BMI 26.5; BMI 27.5
[2025-11-11 04:47] LABS: APTT 122.0 Sec (23.4-35.0)
[2025-11-11] MEDS: VANCOCIN 275 MG IV (05:17)
[2025-11-11 05:20] LABS: Blood Urea Nitrogen 30 mg/dl (9-20); Calcium 8.2 mg/dl (8.4-10.2); Carbon Dioxide 26 mmol/L (22-30); Chloride 103 mmol/L (98-107); Estimated Creatinine Clearance 50 ml/min; Glucose 93 mg/dl (70-99); Magnesium 2.2 mg/dl (1.6-2.3); Potassium 3.9 mmol/L (3.5-5.1); Sodium 132 mmol/L (135-145); eGFR > 60.00
[2025-11-11 06:43] LABS: Iron 46 ug/dl (49-181)
[2025-11-11 07:01] LABS: Total Iron Binding Capacity 131 ug/dl (261-462)
[2025-11-11 08:36] LABS: Ferritin 689.0 ng/ml (17.9-464.0)
[2025-11-11] MEDS: COLACE 100 MG PO ×2 (08:37→20:19)
[2025-11-11] MEDS: PACERONE 200 MG PO (08:37)
[2025-11-11] MEDS: VISBIOME 1 CAP PO (08:38)
[2025-11-11] MEDS: FLOMAX 0.8 MG PO (08:38)
[2025-11-11] MEDS: FARXIGA 10 MG PO (08:38)
[2025-11-11] MEDS: LOW STRENGTH ASPIRIN 81 MG PO (08:38)
[2025-11-11] MEDS: PEPCID 40 MG PO ×2 (08:38→20:20)
[2025-11-11] MEDS: KCL 10 MEQ PO (08:38)
[2025-11-11] MEDS: LASIX 40 MG IV (08:39)
[2025-11-11 09:08] LABS: Folate 16.1 ng/ml (2.76-20); Vitamin B12 772 pg/ml (239-931)
--- NOTE | 2025-11-11 09:10 | W.PN.HOSP.TC ---
Today's Communication/Plan
-
cont anticoagulation
chest tube mgmt as per CTS/IR
dc abx, monitor off
diuresis midodrine as per Cardio
PT/OT
Assessment / Plan
Assessment / Plan
Physical Exam
General: no acute distress resting comfortably in bed
HEENT: Moist mucous membranes and PERRLA
Respiratory: clear to auscultation b/l right sided chest tube present
Cardiac: S1/S2, Regular Rhythm, Sternotomy site healing well. No active drainage appreciated from any incisions. L breast prominence / deformity with associate Mild overlying erythema L lateral breast area. No focal tenderness
GI: Soft, Non Tender, Non Distended and Normal Bowel Sounds
Musculoskeletal: No Clubbing, No Cyanosis and No Edema
Neuro/psych: AO x 3 conversant coherent calm cooperative
A/P: Patient is an 80y M with PMH significant for ASCVD, PA-Fib, hypertension and recent CABG with delayed post-op hemorrhage who presents to from [facility] in transfer for evaluation of L chest wall discomfort, redness, etc.
Left Chest Wall Cellulitis +/- Abscess vs Seroma
s/p L Thoracotomy, Sternotomy x 3 total
CXR noted Large Right pleural effusion, moderate left pleural effusion
- Admit for further evaluation and treatment.
- Data from [facility] reviewed, CT scan showed 8 x 3 x 6 cm collection in the L pectoral muscle tracking to skin possible post-op seroma
- IV vancomycin discontinued monitor off
- CTS eval appreciated
- IR eval appreciated right chest tube placed 11/09 and left fluid collection/possible seroma aspirated
- follow cultures fluid study results so far not suggestive infection
-pain control prn Tylenol Oxycodone, Morphine severe breakthrough pain
Acute on Chronic HFrEF
Borderline BP w/ orthostasis
- Nov ECHO appreciated EF 40-45%
- Continue Jardiance.
- b/l pleural effusions as noted on imaging
- Cardiology eval appreciated cont IV Lasix 40 mg daily, midodrine started
- daily weights I/O
Acute Hypoxia likely d/t pleural effusions possibly d/t heart failure
-wean O2 supplementation as tolerated
ASCVD
Post-Op Hemorrhage - Delayed
- Stable. Hemodynamically stable,
- Continue current CV med regimen and follow for any new symptoms / complaints.
Paroxysmal Atrial Fibrillation
- Stable. Continue amiodarone, Toprol.
- Eliquist as below
RUE Thrombus
- CTA from [facility] shows filling defects in the RUE circulation (brachial - subclavian) suggestive of non-occlusive thrombus.
- Venous Duplex confirms RUE DVT
- started on Hep gtt 11/09, post chest tube placement, no bolus given concerns prior hx bleeding issues, tolerated anticoagulation well since transitioned to Eliquis as per CTS
AMS/progressive agitation likely 2/2 poor sleep suspect Hospital Associate Delirium
-ativan prn
-restraints prn to protect lines chest tube
-mental status since improved/baseline
Benign Hypertension
- Stable. Continue current regimen with holding parameters.
BPH
- Stable. Continue finasteride and tamsulosin.
- Bladder scan protocol.
CLL
- Stable
- monitor
GERD
- Stable. Continue H2 celestina.
PT/OT appreciated Home Services vs Acute (patient/ prefer home)
DVT Prophylaxis: Eliquis
Code Status: Full
Discussed with patient and patient's Pat
I spent a total of 45 minutes with the patient or on the floor. More than 50% of this time involved counseling and coordination of care.
Anticipated Discharge: 24 - 48 hours
Subjective/Interval History
-
Date of Service: November 11, 2025
No acute distress, overall reports feeling well, sitting up comfortably in chair. Stable respiratory status on NC supplementation.
Objective Data
-
Labs:
Laboratory Results
11/11/25 11/11/25
04:24 11:05
WBC Pending
Hgb Pending
Hct Pending
Plt Count Pending
APTT 122.0 H Pending
Sodium 132 L
Potassium 3.9
Chloride 103
Carbon Dioxide 26
BUN 30 H
Creatinine 1.1
Glucose 93
Calcium 8.2 L
Vital Signs:
Vital Signs
Temp Pulse Resp BP Pulse Ox
98.1 F 77 19 120/71 98
11/11/25 08:04 11/11/25 08:37 11/11/25 06:00 11/11/25 08:37 11/11/25 06:00
I&O
11/10/25 11/11/25 11/12/25
06:59 06:59 06:59
Intake Total 920 / 920 920 / 920
Output Total 3350 / 3350 1338 / 1338 570 / 570
Balance -2430 / -2430 -418 / -418 -570 / -570
[2025-11-11] MEDS: HEPARIN 25000 UNITS/250 ML IV (09:35)
--- NOTE | 2025-11-11 09:53 | PHA.VAN.FU ---
Vancomycin Assessment / Plan
- Assessment
Renal Function: Stable
In the past 24 hrs, patient has been: Afebrile
- Dosing Plan
Continue: Vanc 1250mg Q24H
- Monitoring Plan
No level(s) ordered at this time: consider levels in next few days
- Follow Up
Pharmacy will continue to follow.
Vancomycin Follow UP
- -
Patient Age: 80
Patient Sex: Male
Vancomycin Day #: 3
Indication: Skin And Soft Tissue
Requesting Provider: Dr. Atkinson
Pertinent Antimicrobial Allergies:
no pertinent antibiotic allergies
Height / Weight:
Height 5 ft 8 in
Actual Weight 80.9 kg
IBW in k.4
- Vital Signs / Lab Results
Temp Pulse Resp BP Pulse Ox
98.1 F 77 19 120/71 98
11/11/25 08:04 11/11/25 08:37 11/11/25 06:00 11/11/25 08:37 11/11/25 06:00
Lab Results - Hematology
11/09/25 11/10/25
05:24 09:50
WBC 12.6 H 14.6 H
Lab Results - Chemistry
11/09/25 11/10/25 11/11/25
05:24 09:50 04:24
BUN 23 H 26 H 30 H
Creatinine 1.0 1.1 1.1
Estimated Creat Clear 55 50 50
Microbiology Results
11/09/25 17:26 Gram Stain - Preliminary
Fluid
11/09/25 17:26 Gram Stain - Preliminary
Pleural Fluid
--- NOTE | 2025-11-11 10:27 | W.PN.CARDCBS ---
Today's Communication / Plan
-
Continue diuresis
Add midodrine
Impression / Plan
-
.
Primary physicist astrophysics: Dr. Paez of [facility] [place]
Impression:
Possible anterior chest wall cellulitis +/- abscess with drainage
Leukocytosis
Possible RUE thrombus
Acute on chronic HF
Ischemic CM with EF 40-45%
Recent CABG x 4 [VASQUEZ�LAD, SVG�PDA, SVG�DX�OM] with placement of a 5.5 Impella 09/17/[address] Cartagena
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
s/p Redo sternotomy; Washout and evacuation of approximately 1.5 L of clot from the left chest; Ligation of mammary vein and distal mammary stump; Ligation of large vein towards the neck; Thorough evaluation of all bypass grafts by Dr Cartagena on
09/30/25 at 2:30am
s/p Reexploration of chest, redo sternotomy, evacuation of large clot between the left lower lobe and the pericardium the left side, inspection of all surgical sites which were all hemostatic, packed with hemostatic agent, repair of chest wall,
left lateral thoracotomy connected to the sternotomy incision for visualization, thoracotomy repair by Dr. Cartagena on 09/30/25 at 4:45 pm
s/p angiogram of thoracic aorta and L bronchial artery by IR, Dr. Andrade. Findings at angio suspicious for small volume contrast extravasation distal branch L bronchial artery. Secondary to size and tortuosity of the aorta, diminutive caliber and
tortuosity of L bronchial artery, attempts to advance a microcatheter into the L bronchial artery for embolization were unsuccessful. No immediate procedural complications.
s/p Anterior lateral thoracotomy, ligation of arterial vessel, cautery of raw surface and lung tissue for hemostasis, multiple rounds of packing and serial evaluations of all quadrants, application of topical hemostatic agents, reapproximated ribs
and closure thoracotomy by Dr. Cartagena on 09/30/25 at 10:47 pm
Postop anemia with acute blood loss requiring multiple transfusions [13 units packed red blood cells, 2 units FFP, 4 pools platelets]
NSVT, ventricular bigeminy
Paroxysmal atrial fibrillation
Ischemic cardiomyopathy with preoperative ejection fraction 15 to 20% and postoperative ejection fraction 40%
History of BPH with postoperative urinary retention requiring Kee catheter
Hypertension
Hyperlipidemia
SYDNI
Polycythemia vera
CLL with chronic thrombocytopenia
Spinal stenosis
GERD
Depression/anxiety
Echo Sep 23 2025: EF 40-45% no significant valve disease
Limited Sep 29 2025 : EF 40-45%
Urgent left cath Sep 29 2025: Widely patent grafts with no obvious source of bleeding.
Plan:
Left chest wall cellulitis/fluid collection status post IR drainage and chest tube placement
-Cultures pending
-IR chest tube remains in place since 11/09. Initially with serous fluid.
- CT surgery following; CT surgery management of chest tube
RUE Thrombus
- CTA from [facility] shows filling defects in the RUE circulation (brachial - subclavian) suggestive of non-occlusive thrombus.
- Venous Duplex confirms RUE DVT
- started on Hep gtt 11/09, post chest tube placement, no bolus given concerns prior hx bleeding issues
History of PAF currently in sinus rhythm
- Continue amiodarone and Toprol XL
- Continue IV heparin for right upper extremity DVT with plan for transition to oral anticoagulation when cleared by CT surgery
Borderline blood pressures with orthostasis
- Discussed with CT surgery and will start midodrine
Acute on chronic heart failure with reduced ejection fraction
- Nov ECHO appreciated EF 40-45%
- Would continue IV Lasix
- Unclear if weights are reliable as using bed scale. Discussed with nursing to use standing scale, if possible
CLL
- Stable
- monitor
Discussed with tax staff accountant and CTS
HPI: He has hx of CABG x 4 [VASQUEZ�LAD, SVG�PDA, SVG�DX�OM] with Dr. Cartagena on September 17, 2025 with complicated course including acute on chronic renal insufficiency, urinary retention, need for Impella support, ischemic CM with EF 40%, with
readmission with near syncope and hemorrhage Sep 29-Oct 15 2025 taken back to OR multiple times with bleeding including redo sternotomies on Sep 30 2:30 AM and 4:45 PM, IR procedure Sep 30 for bronchial artery bleed and anterior lateral thoracotomy
with ligation of arterial vessel Sep 30 10:47PM. He had a wound vac placed and received a total of 13 units PRBCs 2 units of FFP and 4 units platelets during his hospital stay. He was discharged to [facility] Oct 15 and discharged from there on Oct
. He was seen by VN and there was concern for drainage from 2 chest wall sites as well as anterior chest edema and he was sent to [facility] ED and transferred to . His states he has been getting more lethargic over the last 2 days as well after
having had more energy. In ER he was found to have chest wall findings concerning for possible cellulitis +/- abscess. He was started on IV abx. CT surgery and cardiology are consulted. He was started on IV lasix 40 mg daily in the ER. His wt
overall has been stable at home at 177. His wt is close to his d/c wt. He denies chest pain. He has some mild dyspnea.
He follows with Dr. Paez with [facility]. Additionally, he has a history of hypertension, hyperlipidemia, BPH with urinary retention, CLL with chronic thrombocytopenia, and sleep apnea.
Progress Note - Four Roll Calender Operator
Subjective
Date of Service: November 11, 2025
Seen and examined sitting out of bed to chair. Offers no specific complaints and denies chest pain or pressure or dizziness. He states his shortness of breath has improved.
Objective
Labs:
11/11/25 04:24
Labs
Hgb 10.9 g/dL (13.0-18.0) L 11/10/25 19:32
Hct 34.5 % (39.0-52.0) L 11/10/25 19:32
Plt Count 300 10^3/uL (130-400) 11/10/25 09:50
APTT 122.0 Sec (23.4-35.0) H 11/11/25 04:24
Sodium 132 mmol/L (135-145) L 11/11/25 04:24
Potassium 3.9 mmol/L (3.5-5.1) 11/11/25 04:24
BUN 30 mg/dl (9-20) H 11/11/25 04:24
Creatinine 1.1 mg/dL (0.7-1.3) 11/11/25 04:24
Glucose 93 mg/dl (70-99) 11/11/25 04:24
Troponins
11/09/25 11/09/25 11/09/25
05:24 11:06 17:00
Troponin I 0.044 H* 0.043 H* Cancelled
Vital Signs and I&O:
Vital Signs
Temp Pulse Resp BP Pulse Ox
98.1 F 77 19 120/71 98
11/11/25 08:04 11/11/25 08:37 11/11/25 06:00 11/11/25 08:37 11/11/25 06:00
Vital Signs
Temp Pulse Resp BP Pulse Ox
98.1 F 77 19 120/71 98
11/11/25 08:04 11/11/25 08:37 11/11/25 06:00 11/11/25 08:37 11/11/25 06:00
Intake & Output
11/09/25 11/10/25 11/11/25 11/12/25
06:59 06:59 06:59 06:59
Intake Total 630 / 630 920 / 920 920 / 920
Output Total 100 / 100 3350 / 3350 1338 / 1338 570 / 570
Balance 530 / 530 -2430 / -2430 -418 / -418 -570 / -570
Physical Exam
Physical Exam
Gen: NAD, AOA x 3 with appropriate answers to questions. Out of bed to chair on 2 LMP nc
HEENT: NC/AT, sclera anicteric
CV: RRR, NL s1/s2 no murmur
Lungs: Bronchovesicular breath sounds decreased but clear chest tube in place
Abd: S/ND +BS
Ext: + 1LE edema
--- NOTE | 2025-11-11 10:50 | WOUNDNOTE ---
CHEST (MID ANTERIOR); UPPER ABDOMEN
[2025-11-11 10:52] LABS: Hematocrit 34.3 % (39.0-52.0); Hemoglobin 10.9 g/dL (13.0-18.0); Mean Corp Hgb Conc. 31.8 g/dL (33.0-37.0); Mean Corpuscular Volume 92.0 fL (80.0-94.0); Platelet Count 290 10^3/uL (130-400); Red Cell Dist. Width 15.9 % (11.5-14.5)
--- NOTE | 2025-11-11 10:53 | WOUNDNOTE ---
[facility] RN note: Patient admitted with sob, L chest wall cellulitis, delayed post op hemorrhage. s/p L chest aspiration and R chest tube. Patient lives with his and is current with VN. He follows a wound care center (currently following [facility]). He stated he sleeps in a regular bed at home and has a chair cushion.
See H&P for complete history.
PMH: ASCVD, former smoker, hernia repair, PTCA with stent, CLL, recent CABG 09/17/25, redo sternotomy x 2, L thoracotomy wiht broncial arterial ligation 09/30/25 to control bleeding, CM, CKD3, polycythemia vera, spinal stenosis, BPH.
Wound Location and type/assessment: Patient admitted with: stage 3 coccyx pressure injury, pink with some yellow fibrin. Sacral small deep dermal stage 2 vs stage 3 pressure injury, yellow fibrin cover. R medial upper calf scabbed incision. Upper
abdominal/lower sternal scabbed incisions.
Appetite: fair-good.
Pressure redistribution devices in place: Centrella Max air bed. Air chair cushion. Patient ambulates with walker and assist/supervision.
Plan: Sacral/coccyx wound care done. Patient ambulated from chair to bed with help from RN Sharita. Heels off bed with pillow.
Will confirm orders with Dr. Olvera and discussed with nurse.
Care plan to be updated and will follow as needed.
Note to case management of equipment requested for discharge: Air mattress if goes to SNF. Consider hospital bed with air mattress at home if patient accepts.
Recommend follow up at a wound care center ([facility] or ) upon discharge.
[2025-11-11] MEDS: SANTYL OINTMENT 1 APPLIC TOPICAL (12:07)
[2025-11-11] MEDS: FEOSOL 325 MG PO (12:08)
[2025-11-11] MEDS: ELIQUIS 5 MG PO ×2 (12:08→20:19)
--- NOTE | 2025-11-11 14:06 | PTCARENOTE ---
Patient AAOx3, forgetful at times, easily redirectable, bed & chair alarm on. C/o chronic lower back pain. Weaned to RA, sats 95%. Right chest tube CDI. NSR on monitor. BPs soft, midodrine added. Patient c/o constipation, drank prune juice for
lunch, took colace but refusing additional laxatives at this time. Patient tolerated chair for 1 hour. at bedside. Will closely monitor.
--- NOTE | 2025-11-11 16:30 | CM ---
F/U: VARGHESE Mercedes let CELI Auguste know that patient will be starting Eliquis. CM informed Hospital Team, script was not sent in when CM called, but [facility] was nice enough to do a test claim for 5mg 2x a day, and it is $0 copay. CM asked Hospitalist to send
in 90 day script because patient is in the dont hole with Medicare so cost is cheap.
Patient cleared with Therapy on Tuesday so met with patient / , they are known to [facility]. When CELI searched for this HC, it is really [facility] #[phone] because [facility] is merging with them. Referral sent to .
[facility] and please call [facility] when patient is discharge. PLAN: Home w/ PT when ready.
[2025-11-11] MEDS: TOPROL XL 25 MG PO (20:20)
[2025-11-11] MEDS: PROSCAR 5 MG PO (22:18)
[2025-11-11] MEDS: LIPITOR 40 MG PO (22:18)
[2025-11-12] VITALS (15 sets, daily range): BP systolic 94–145; BP diastolic 62–108; BMI 26.4; BMI 26.5
[2025-11-12 05:49] LABS: Hematocrit 35.7 % (39.0-52.0); Hemoglobin 11.1 g/dL (13.0-18.0); Mean Corp Hgb Conc. 31.1 g/dL (33.0-37.0); Mean Corpuscular Volume 91.8 fL (80.0-94.0); Platelet Count 284 10^3/uL (130-400); Red Cell Dist. Width 15.8 % (11.5-14.5)
[2025-11-12 06:09] LABS: Blood Urea Nitrogen 24 mg/dl (9-20); Calcium 8.2 mg/dl (8.4-10.2); Carbon Dioxide 30 mmol/L (22-30); Chloride 103 mmol/L (98-107); Estimated Creatinine Clearance 61 ml/min; Glucose 89 mg/dl (70-99); Magnesium 2.2 mg/dl (1.6-2.3); Potassium 3.8 mmol/L (3.5-5.1); Sodium 133 mmol/L (135-145); eGFR > 60.00
--- NOTE | 2025-11-12 07:16 | W.PN.HOSP.TC ---
Addendum entered and electronically signed by Janay Olvera MD 11/13/25 04:49:
stage 3 coccyx pressure injury
Original Note:
Today's Communication/Plan
-
discharge
Assessment / Plan
Assessment / Plan
Physical Exam
General: no acute distress resting comfortably in bed
HEENT: Moist mucous membranes and PERRLA
Respiratory: clear to auscultation b/l
Cardiac: S1/S2, Regular Rhythm, Sternotomy site healing well. No active drainage appreciated from any incisions.
GI: Soft, Non Tender, Non Distended and Normal Bowel Sounds
Musculoskeletal: No Clubbing, No Cyanosis and No Edema
Neuro/psych: AO x 3 conversant coherent calm cooperative
A/P: Patient is an 80y M with PMH significant for ASCVD, PA-Fib, hypertension and recent CABG with delayed post-op hemorrhage who presents to from [facility] in transfer for evaluation of L chest wall discomfort, redness, etc.
Left Chest Wall Cellulitis +/- Abscess vs Seroma
s/p L Thoracotomy, Sternotomy x 3 total
CXR noted Large Right pleural effusion, moderate left pleural effusion
- Data from [facility] reviewed, CT scan showed 8 x 3 x 6 cm collection in the L pectoral muscle tracking to skin possible post-op seroma
- IV vancomycin discontinued, remains stable off abx
- CTS eval appreciated
- IR eval appreciated right chest tube placed 11/09 and left fluid collection/possible seroma aspirated
- Fluid studies appreciated not suggestive infection, cultures no growth to date
- chest tube removed 11/12
- pain free
Acute on Chronic HFrEF
Borderline BP w/ orthostasis
- Nov ECHO appreciated EF 40-45%
- Continue Jardiance.
- b/l pleural effusions as noted on imaging
- Cardiology eval appreciated IV Lasix to transition to PO lasix 40 mg daily started 11/13
Acute Hypoxia likely d/t pleural effusions possibly d/t heart failure
-weaned off oxygen supplementation to room air
ASCVD
Post-Op Hemorrhage - Delayed
- Stable. Hemodynamically stable,
- Continue current CV med regimen and follow for any new symptoms / complaints.
Paroxysmal Atrial Fibrillation
- Stable. Continue amiodarone, Toprol.
- Eliquis as below
RUE Thrombus
- CTA from [facility] showed filling defects in the RUE circulation (brachial - subclavian) suggestive of non-occlusive thrombus.
- Venous Duplex confirms RUE DVT
- started on Hep gtt 11/09, post chest tube placement, no bolus given concerns prior hx bleeding issues, tolerated anticoagulation well, since transitioned to Eliquis as per CTS
AMS/progressive agitation likely 2/2 poor sleep suspect Hospital Associate Delirium
-ativan prn
-restraints prn to protect lines chest tube
-mental status since improved, back to baseline
Borderline blood pressures with orthostasis
-started on midodrine low dose with holding parameters
BPH
- Stable. Continue finasteride and tamsulosin.
- Bladder scan protocol.
CLL
- Stable
- monitor
GERD
- Stable. Continue H2 celestina.
PT/OT appreciated Home Services vs Acute (patient/ prefer home)
DVT Prophylaxis: Eliquis
Code Status: Full
Medically stable for discharge home with home services and outpatient follow up recommendations.
Discussed with patient and patient's Pat
Total Time Preparing Discharge __40 minutes including examination of the patient, summary of the hospital stay, instructions for continuing care to all relevant caregivers; and preparation of discharge records, prescriptions, and referral
forms if necessary.
Anticipated Discharge: Today
Subjective/Interval History
-
Date of Service: November 12, 2025
No acute distress sitting up comfortably in bed. Overall reports feeling well. Stable respiratory status on room air. Re-evaluated later in day after chest tube removal as per CT surgyery. Continues to do well. Looking forward to going home.
Pat present during evaluation.
Objective Data
-
Labs:
Laboratory Results
11/11/25 11/12/25
11:05 05:07
WBC 10.9 H
Hgb 11.1 L
Hct 35.7 L
Plt Count 284
APTT Cancelled
Sodium 133 L
Potassium 3.8
Chloride 103
Carbon Dioxide 30
BUN 24 H
Creatinine 0.9
Glucose 89
Calcium 8.2 L
Vital Signs:
Vital Signs
Temp Pulse Resp BP Pulse Ox
98.4 F 73 22 112/68 93
11/12/25 03:05 11/12/25 05:00 11/12/25 05:00 11/12/25 04:00 11/12/25 05:00
I&O
11/11/25 11/12/25 11/13/25
06:59 06:59 06:59
Intake Total 920 / 920 1520 / 1520
Output Total 1338 / 1338 2900 / 2900
Balance -418 / -418 -1380 / -1380
--- NOTE | 2025-11-12 07:49 | PN.CDI ---
CDI
- -
CDI:
Physician Documentation Request
Admit Date: 11/09/25 05:06
Dear Doctor Wade,
Please review the following and provide your response in the progress notes.
Clinical Indicators:
Pt admitted with postop seroma cellulitis chest wall/abscess
Documented per [facility] note 11/11, ' Patient admitted with: stage 3 coccyx pressure injury, pink with some yellow fibrin. Sacral small deep dermal stage 2 vs stage 3 pressure injury, yellow fibrin cover...Plan: Sacral/coccyx wound care done....'
Physician documentation of the type and location of wounds is required for compliant documentation. Based on the above clinical findings and your assessment, please provide the following in your progress note:
1. Location of the ulcer/wound, including laterality.( FOR EACH WOUND)
2. Type (etiology) of ulcer/wound:
- Pressure (decubitus) ulcer
- Non-pressure ulcer
- Other ( please specify)
Use of terms such as suspected, likely, concern for, or probable (associated with a specific diagnosis that is being evaluated, monitored, or treated as if it exists) are acceptable and can be coded in the inpatient setting, when documented at the
time of discharge.
Thank you,
Kat Mills RN
CDI Specialist
[place] [facility]
Please use your independent medical judgment in providing your response.
*Source: National Pressure Ulcer Advisory Panel (NPUAP)
[2025-11-12] MEDS: PEPCID 40 MG PO ×2 (09:00→19:55)
[2025-11-12] MEDS: KCL 10 MEQ PO (09:00)
[2025-11-12] MEDS: FARXIGA 10 MG PO (09:00)
[2025-11-12] MEDS: FEOSOL 325 MG PO (09:02)
[2025-11-12] MEDS: SANTYL OINTMENT 1 APPLIC TOPICAL (09:02)
[2025-11-12] MEDS: VISBIOME 1 CAP PO (09:02)
[2025-11-12] MEDS: ELIQUIS 5 MG PO ×2 (09:02→19:54)
[2025-11-12] MEDS: LOW STRENGTH ASPIRIN 81 MG PO (09:03)
[2025-11-12] MEDS: FLOMAX 0.8 MG PO (09:06)
[2025-11-12] MEDS: COLACE 100 MG PO ×2 (09:06→19:54)
[2025-11-12] MEDS: PACERONE 200 MG PO (09:20)
[2025-11-12] MEDS: LASIX 40 MG IV (09:20)
--- NOTE | 2025-11-12 14:14 | PTCARENOTE ---
Right chest tube removed by cardiothoracic PA.
--- NOTE | 2025-11-12 14:25 | W.PN.CARDCBS ---
Today's Communication / Plan
-
Anticipate transition IV to oral Lasix 40 mg daily on 11/13
Chest tube management per CT surgery
PT/OT
Discharge planning
Impression / Plan
-
.
Primary deck builder: Dr. Paez of [facility] [place]
Impression:
Possible anterior chest wall cellulitis +/- abscess with drainage
Leukocytosis
Possible RUE thrombus
Acute on chronic HF
Ischemic CM with EF 40-45%
Recent CABG x 4 [VASQUEZ�LAD, SVG�PDA, SVG�DX�OM] with placement of a 5.5 Impella 09/17/[address] Cartagena
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
s/p Redo sternotomy; Washout and evacuation of approximately 1.5 L of clot from the left chest; Ligation of mammary vein and distal mammary stump; Ligation of large vein towards the neck; Thorough evaluation of all bypass grafts by Dr Cartagena on
09/30/25 at 2:30am
s/p Reexploration of chest, redo sternotomy, evacuation of large clot between the left lower lobe and the pericardium the left side, inspection of all surgical sites which were all hemostatic, packed with hemostatic agent, repair of chest wall,
left lateral thoracotomy connected to the sternotomy incision for visualization, thoracotomy repair by Dr. Cartagena on 09/30/25 at 4:45 pm
s/p angiogram of thoracic aorta and L bronchial artery by IR, Dr. Andrade. Findings at angio suspicious for small volume contrast extravasation distal branch L bronchial artery. Secondary to size and tortuosity of the aorta, diminutive caliber and
tortuosity of L bronchial artery, attempts to advance a microcatheter into the L bronchial artery for embolization were unsuccessful. No immediate procedural complications.
s/p Anterior lateral thoracotomy, ligation of arterial vessel, cautery of raw surface and lung tissue for hemostasis, multiple rounds of packing and serial evaluations of all quadrants, application of topical hemostatic agents, reapproximated ribs
and closure thoracotomy by Dr. Cartagena on 09/30/25 at 10:47 pm
Postop anemia with acute blood loss requiring multiple transfusions [13 units packed red blood cells, 2 units FFP, 4 pools platelets]
NSVT, ventricular bigeminy
Paroxysmal atrial fibrillation
Ischemic cardiomyopathy with preoperative ejection fraction 15 to 20% and postoperative ejection fraction 40%
History of BPH with postoperative urinary retention requiring Kee catheter
Hypertension
Hyperlipidemia
SYDNI
Polycythemia vera
CLL with chronic thrombocytopenia
Spinal stenosis
GERD
Depression/anxiety
Echo Sep 23 2025: EF 40-45% no significant valve disease
Limited Sep 29 2025 : EF 40-45%
Urgent left cath Sep 29 2025: Widely patent grafts with no obvious source of bleeding.
Plan:
Left chest wall cellulitis/fluid collection status post IR drainage and chest tube placement
- Cultures no growth after 48 hours
-IR chest tube remains in place since 11/09
- CT surgery following; CT surgery management of chest tube
RUE Thrombus
- CTA from [facility] shows filling defects in the RUE circulation (brachial - subclavian) suggestive of non-occlusive thrombus.
- Venous Duplex confirms RUE DVT
- Initially on IV heparin which was transitioned to Eliquis per CT surgery 11/11
History of PAF currently in sinus rhythm
- Continue amiodarone and Toprol XL
- Eliquis anticoagulation started 11/11
Borderline blood pressures with orthostasis
- Discussed with CT surgery and will start midodrine
Acute on chronic heart failure with reduced ejection fraction
- Nov ECHO appreciated EF 40-45%
- Continue IV Lasix today and consider transition to oral Lasix 40mg daily 11/13
- Unclear if weights are reliable as using bed scale. Discussed with nursing to use standing scale, if possible
CLL
- Stable
- monitor
Discussed with staff software engineer and CTS
HPI: He has hx of CABG x 4 [VASQUEZ�LAD, SVG�PDA, SVG�DX�OM] with Dr. Cartagena on September 17, 2025 with complicated course including acute on chronic renal insufficiency, urinary retention, need for Impella support, ischemic CM with EF 40%, with
readmission with near syncope and hemorrhage Sep 29-Oct 15 2025 taken back to OR multiple times with bleeding including redo sternotomies on Sep 30 2:30 AM and 4:45 PM, IR procedure Sep 30 for bronchial artery bleed and anterior lateral thoracotomy
with ligation of arterial vessel Sep 30 10:47PM. He had a wound vac placed and received a total of 13 units PRBCs 2 units of FFP and 4 units platelets during his hospital stay. He was discharged to [facility] Oct 15 and discharged from there on Oct
. He was seen by VN and there was concern for drainage from 2 chest wall sites as well as anterior chest edema and he was sent to [facility] ED and transferred to . His states he has been getting more lethargic over the last 2 days as well after
having had more energy. In ER he was found to have chest wall findings concerning for possible cellulitis +/- abscess. He was started on IV abx. CT surgery and cardiology are consulted. He was started on IV lasix 40 mg daily in the ER. His wt
overall has been stable at home at 177. His wt is close to his d/c wt. He denies chest pain. He has some mild dyspnea.
He follows with Dr. Paez with [facility]. Additionally, he has a history of hypertension, hyperlipidemia, BPH with urinary retention, CLL with chronic thrombocytopenia, and sleep apnea.
Progress Note - Incinerator Attendant
Subjective
Date of Service: November 12, 2025
Patient seen and examined. No chest pain, shortness of breath or lightheadedness.
Objective
Labs:
11/12/25 05:07
11/12/25 05:07
Labs
Hgb 11.1 g/dL (13.0-18.0) L 11/12/25 05:07
Hct 35.7 % (39.0-52.0) L 11/12/25 05:07
Plt Count 284 10^3/uL (130-400) 11/12/25 05:07
APTT Cancelled 11/11/25 11:05
APTT Cancelled 11/11/25 11:05
Sodium 133 mmol/L (135-145) L 11/12/25 05:07
Potassium 3.8 mmol/L (3.5-5.1) 11/12/25 05:07
BUN 24 mg/dl (9-20) H 11/12/25 05:07
Creatinine 0.9 mg/dL (0.7-1.3) 11/12/25 05:07
Glucose 89 mg/dl (70-99) 11/12/25 05:07
Vital Signs and I&O:
Vital Signs
Temp Pulse Resp BP Pulse Ox
97.6 F 80 23 94/78 92
11/12/25 11:30 11/12/25 14:00 11/12/25 14:00 11/12/25 14:00 11/12/25 14:00
Vital Signs
Temp Pulse Resp BP Pulse Ox
97.6 F 80 23 94/78 92
11/12/25 11:30 11/12/25 14:00 11/12/25 14:00 11/12/25 14:00 11/12/25 14:00
Intake & Output
11/10/25 11/11/25 11/12/25 11/13/25
06:59 06:59 06:59 06:59
Intake Total 920 / 920 920 / 920 1520 / 1520 480 / 480
Output Total 3350 / 3350 1338 / 1338 2900 / 2900 1050 / 1050
Balance -2430 / -2430 -418 / -418 -1380 / -1380 -570 / -570
Physical Exam
Physical Exam
Gen: NAD, AOA x 3 with appropriate answers to questions. Out of bed to chair on 2 LMP nc
HEENT: NC/AT, sclera anicteric
CV: RRR, NL s1/s2 no murmur
Lungs: Bronchovesicular breath sounds decreased but clear chest tube in place
Abd: S/ND +BS
Ext: + 1LE edema
--- NOTE | 2025-11-12 17:36 | PTCARENOTE ---
Dr. Olvera at bedside. Plan to discharge patient home. present. VSS.
--- NOTE | 2025-11-12 18:44 | W.PN.UPDATE ---
Update Note
Progress Note Update
CT removed without issue. OK for discharge with repeat CXR in one week. Discussed with primary team.
--- NOTE | 2025-11-12 19:38 | W.DCSUMMARY ---
Discharge Summary
Discharge Data
Date of Admission: 11/09/25
Date of Discharge: 11/12/25
-
Pending Results: Yes (official culture results)
Discharge Plan
-
Patient Disposition: Home with Home Care
Discharge Diagnosis/Procedures: Right Large Pleural Effusion resolved following chest tube placement since completed
Left breast seroma aspirated
Borderline low pressures/Hypotension
Acute on Chronic Heart Failure with reduced Ejection Fraction
Paroxysmal Atrial Fibrillation
Right Upper Extremity Deep Vein Thrombosis
Chronic Lymphocytic Leukemia
Mild Iron Deficiency
Condition: Fair
Diet: Low Cholesterol and Restrict fluids to 64 oz
Activity: With assistance, As tolerated and With Walker
Driving Restrictions: Not until seen by your Dr
Bathing Restrictions: None
Others Tests: Repeat Chest X-ray with primary care provider in 1 week of discharge.
Other Services: PT and OT
Activity Restrictions/Additional Instructions:
Wound Care Instructions
Sacral, coccyx ulcers-clean with saline or soap and water, miconazole powder prn yeasty red surrounding skin, Santyl to ulcers, silicone border foam (add alginate prn large amount of drainage). Change daily and prn drainage.
Air mattress
Turning schedule
Elevate heels off bed with pillow/s
Pressure redistributing chair cushion (i.e. Air, Roho, gel).
Follow up at a wound care center (i.e. [facility] or wound care center call for an appointment).
Follow up with primary care provider in 1 week of discharge. Follow up with cardiology and cardiothoracic surgeon in 2-4 weeks of discharge.
Eliquis has been prescribed for Right upper extremity deep vein thrombosis and for stroke risk reduction atrial fibrillation.
Iron supplementation prescribed for mild iron deficiency.
Midodrine prescribed for relatively low pressures, hold if your systolic blood pressure is greater than 140.
Keep a log of your pressures at home 3 times a day- to review with your primary care provider and jinrikisha driver in follow up.
Please take medications as prescribed/recommended and follow up with primary care provider and/or other healthcare provider involved in your care for refills and/or further adjustment to your medication regimen as necessary.
Instructions: *PCP/Other Emergency Response Coordinator Heart Failure Instructions
Referrals:
Chun Cartagena MD [Active, Cardiac Surgery] - in two to four weeks
UNKNOWN - PT NOT,INTERVIEWE [Family Provider]
Prescriptions:
New
Eliquis 5 mg tablet
5 mg PO BID Qty: 180 0RF
ferrous sulfate [FeroSul] 325 mg (65 mg iron) Tablet
325 mg PO DAILY Qty: 30 0RF
midodrine 2.5 mg tablet
2.5 mg PO TID Qty: 90 0RF
Rx Instructions:
hold if systolic blood pressure>140
Continued
multivitamin Tablet
1 tab PO DAILY
atorvastatin [Lipitor] 40 mg Tablet
40 mg PO HS
finasteride 5 mg Tablet
5 mg PO HS
cholecalciferol (vitamin D3) [Vitamin D3] 50 mcg (2,000 unit) Tablet
50 mcg PO DAILY
Jardiance 10 mg Tablet
10 mg PO DAILY
aspirin 81 mg Tablet,Chewable
81 mg PO DAILY Qty: 0 0RF
magnesium oxide 400 mg magnesium tablet
400 mg PO DAILY Qty: 90 0RF
furosemide 40 mg tablet
40 mg PO DAILY
famotidine 40 mg tablet
40 mg PO BID
potassium chloride [Klor-Con M20] 20 mEq tablet,ER particles/crystals
10 meq PO DAILY
docusate sodium 100 mg Capsule
100 mg PO BID 30 Days Qty: 60 0RF
Santyl 250 unit/gram Ointment
1 applic topical DAILY 30 Days Qty: 1 0RF
metoprolol succinate 25 mg Tablet Extended Release 24 Hr
25 mg PO DAILY@2000 3 Days Qty: 30 0RF
amiodarone [Pacerone] 200 mg Tablet
200 mg PO DAILY 30 Days Qty: 30 0RF
tamsulosin 0.4 mg Capsule
0.8 mg PO DAILY 30 Days Qty: 60 0RF
Discharge Orders:
Discharge Patient (As Directed); Ordered 11/12/25
Ordered By: Janay Olvera
Discharge Date and Time
Print Language: JAPANESE
[2025-11-12] MEDS: TOPROL XL 25 MG PO (19:55)
--- NOTE | 2025-11-12 20:52 | PTCARENOTE ---
discharge order present. discharge instructions and packet reviewed with pt and spouse.
--- NOTE | 2025-11-13 08:10 | CM ---
F/U: CM was unaware of patient discharging, but Home Care was arranged prior. PLAN: DC with Home Care via [facility]/ / [facility].
--- NOTE | 2025-11-13 09:01 | W.HF.CON ---
Heart Failure
- LV Function
Left ventricular function study result: LV Ejection fraction 41-49%
Ejection Fraction Percentage: 40-45
- ARNI
Patient already on ARNI: No
Heart Failure ARNI Not Indicated: LV Ejection Fraction >/= 40%
- ACEI/ARB
Patient already on ACEI/ARB: No
Heart Failure ACEI/ARB Not Indicated: LV Ejection Fraction > 40%
- Beta Elie
Patient already on Evidence Based Beta Elie: Yes
- Mineralocorticord Receptor Antagonist
Patient already on MRA: No
Heart Failure MRA Not Indicated: LV Ejection Fraction > 40%
- SGLT-2 Inhibitor
Patient already on SGLT-2 Inhibitor: Yes
- Afib Anticoagulation
Patient already on Anticoagulation for Afib: Yes
- NYHA CHF Classification
NYHA CHF Classification Level: Class III - Symptoms w/ min exertion, interferes w/ nml daily activity
- ACC/AHA Stage
ACC/AHA Stage: Stage C: Symptomatic Heart Failure
== END 2025-11-12 21:13 | disposition home health service (06) | DRG 919 ==
LOC: IMU 05:06
PROVIDERS: Hospitalist; Nurse Practitioner Family; Radiology Vascular & Interventional Radiology; ADMITTING PHYSICIAN Hospitalist; ATTENDING PHYSICIAN Internal Medicine; CONSULT PHYSICIAN Nuclear Medicine Nuclear Cardiology; CONSULT PHYSICIAN Student in an Organized Health Care Education/Training Program
PROC: 0W9930Z Drainage of Right Pleural Cavity with Drainage Device, Percutaneous Approach (ICD-10-PCS; 2025-11-10)
DX: J95.863 Postprocedural seroma of a respiratory system organ or structure following other procedure (principal); I50.23 Acute on chronic systolic (congestive) heart failure; L89.153 Pressure ulcer of sacral region, stage 3; I13.0 Hypertensive heart and chronic kidney disease with heart failure and stage 1 through stage 4 chronic kidney disease, or unspecified chronic kidney disease; C91.10 Chronic lymphocytic leukemia of B-cell type not having achieved remission; L02.213 Cutaneous abscess of chest wall; L03.313 Cellulitis of chest wall; Z87.891 Personal history of nicotine dependence; I25.10 Atherosclerotic heart disease of native coronary artery without angina pectoris; I48.0 Paroxysmal atrial fibrillation; N18.30 Chronic kidney disease, stage 3 unspecified; K21.9 Gastro-esophageal reflux disease without esophagitis; Z79.01 Long term (current) use of anticoagulants; Z79.82 Long term (current) use of aspirin; Z79.899 Other long term (current) drug therapy
CPT/HCPCS: 10160; 32557; 71045; 71046; 76705; 80048; 82150; 82607; 82728; 82746; 82945; 83540; 83550; 83615; 83735; 83986; 84100; 84157; 84439; 84443; 84478; 84484; 85014; 85018; 85027; 85730; 86850; 86900; 86901; 87015; 87070; 87205; 88112; 88305; 88341; 88342; 89051; 93005; 93971; 97163; 97167; 99152; 99153; C1729; C1769